=== PATIENT | male | born 1960 | race Caucasian/White ===

== ENCOUNTER 2020-12-21 18:25 | Observation (INO) | payer MEDICAID, SELFPAY ==
[2020-12-21 18:36] VITALS: BP 156/97; PULSE 98; RESP 22; TEMP 37.1; O2SAT 95; BMI 32.5
--- NOTE | 2020-12-21 18:39 | XRR_ITS ---
PROCEDURE INFORMATION: Exam: XR Chest Exam date and time: 12/21/2020 6:46 PM Age: 60 years old Clinical indication: Chest pain; Prior surgery; Surgery type: 4 stents; Additional info: Cp TECHNIQUE: Imaging protocol: XR of the chest. Views: 1 view. COMPARISON: No relevant prior studies available. FINDINGS: Lungs: Unremarkable. No consolidation. Pleural spaces: Unremarkable. No pleural effusion. No pneumothorax. Heart/Mediastinum: Unremarkable. No cardiomegaly. Bones/joints: Unremarkable. XR/XR chest 1V portable [id number] IMPRESSION: No acute findings.
--- NOTE | 2020-12-21 18:39 | ECG_ITS ---
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 Measurements Intervals [place] Rate: 88 P: 32 SD: 161 QRS: -34 QRSD: 126 T: -20 QT: 355 QTc: 432 Interpretive Statements SINUS RHYTHM INFERIOR MYOCARDIAL INFARCTION , OF INDETERMINATE AGE [40+ ms Q WAVE AND/OR ST/T ABNORMALITY IN II/aVF] No previous ECG available for comparison Electronically Signed On 12-24-2020 12:16:25 CDT by Mariajose Beltre M.D. [email or web address] Groupcoshocton regional medical center.[email or web address]/store/NU/[id number] f
--- NOTE | 2020-12-21 18:42 | ED_ITS ---
HPI - Chest Pain General: Chief Complaint: Chest Pain Stated Complaint: CP Time Seen by Provider: 12/21/20 18:36 History of Present Illness: HPI narrative: Patient is a 60-year-old male with past medical history coronary artery disease with FL in 2007 with 4 stents at that time who comes to the ER today complaining of midsternal chest pain similar to his previous FL. Also shortness of breath. He says pain is 9 out of 10 on arrival. EKG does show ST depressions in 1-lead but no significant ST elevation. After resting in bed his pain spontaneously went to a 3 out of 10. He took multiple nitroglycerin at home today with no improvement of his chest pain. He says usually at home it does improve his chest pain but today it has not. MD complaint: chest pain Pertinent past history: coronary artery disease and prior FL Timing of current episode: constant Prior episodes: Yes Onset: during rest and during exertion Pain location: substernal and left chest Pain radiation: left arm Severity: similar to previous episodes Quality: heaviness Relieving factors: nothing and rest Exacerbating factors: exertion Associated symptoms: Reports dyspnea; Deny abdominal pain or palpitations Treatment prior to arrival: none Review of Systems General: Reports: 10 or more systems reviewed and unremarkable except in HPI and below Const: Denies: fatigue Eyes: Denies: change in vision, blurry vision or eye redness ENMT: Denies: throat pain, swelling of lips/tongue, ear or mastoid pain or nasal congestion Card: Reports: chest pain; Denies: palpitations, irregular heart rhythm, edema, dyspnea on exertion or orthopnea Resp: Reports: dyspnea; Denies: productive cough or non-productive cough GI: Denies: abdominal pain, diarrhea or GI cramping : Denies: flank pain, urinary frequency or urinary urgency Musc: Denies: neck pain, back pain, extremity pain, joint pain, joint redness, limited range of motion or muscle weakness Skin/Breast: Denies: rash, pruritus, erythema, skin pain or skin tenderness Neuro: Denies: headache(s), numbness in extremities, weakness in extremities, sensory changes, difficulty walking, dizziness, confusion or Slurred speech p resent Psych: Denies: anxiety or depression Endo: Denies: polyuria All/Imm: Denies: urticaria, throat swelling or tongue swelling PFSH ED PFSH: Medical History Atherosclerosis of [place] coronary artery of [place] heart with stable angina pectoris BPH (benign prostatic hyperplasia) Essential hypertension History of hypertension Hx of chest pain Surgical History History of PTCA Family History Brother CAD (coronary artery disease) Lung disease Father CAD (coronary artery disease) Cancer Mother Diabetes Lung disease Denies family history of Clotting disorder Dementia Chronic kidney disease (CKD) Suicide Anesthesia complication Bleeding disorder Stroke Social History (Updated 12/21/20 @ 22:15 by Chantel Castorena MD) Smoking and tobacco status: former smoker Alcohol intake: current Alcohol intake frequency: 3 or more drinks per day [place] type: beer Alcohol use comment: 12-15 beers per night, 12 ounces can Substance/Drug Use: never Housing: House Physical Exam Const: COMMON NORMALS: no acute distress, average body habitus, patient oriented x3, no limitations, healthy appearing, alert and well nourished GENERAL APPEARANCE: cooperative, comfortable, well kempt and well developed ORIENTATION/CONSCIOUSNESS: Yes awake, Yes oriented to person, Yes oriented to place and Yes oriented to time HENMT: COMMON NORMALS: normocephalic, external ears normal and Normal external nose present HEAD & SCALP: normal to inspection and normocephalic NOSE: Normal external nose present EXTERNAL EAR: Yes external ears normal MOUTH: Normal oral and palatal mucosa present THROAT: posterior oropharynx normal Eye: COMMON NORMALS: Equal, round and reactive pupils present and EOMs intact bilaterally GENERAL EYE: appearance normal, both eyes and all related structures PUPIL: Yes Equal, round and reactive pupils present Neck/C-Spine: COMMON NORMALS: full ROM, no lymphadenopathy, no meningeal signs and no JVD GENERAL: Yes normal visual inspection Lymph: LYMPHATIC: no lymphadenopathy noted Chest: COMMONS NORMALS: normal inspection of the chest and normal palpation of entire chest wall Resp: COMMON NORMALS: normal respiratory effort, No retractions, No use of accessory muscles, clear to auscultation bilaterally and percussion normal EFFORT & INSPECTION: Yes able to speak in complete sentences AUSCULTATION: clear to auscultation bilaterally PERCUSSION: percussion normal Cardio: COMMON NORMALS: no JVD, regular rate, regular rhythm, S1 normal heart sound present, S2 normal heart sound present and Peripheral pulses 2+ throughout RATE: regular rate RHYTHM: regular rhythm HEART SOUNDS: S1 normal heart sound present and S2 normal heart sound present PERIPHERAL PULSES: Peripheral pulses 2+ throughout GI: COMMON NORMALS: Normal to inspection, nondistended, normoactive bowel sounds present, Soft to palpation, non-tender and no masses INSPECTION: Yes normal to inspection PALPATION: Yes Soft to palpation : COMMON NORMALS: Yes no CVA tenderness BLADDER/KIDNEY EXAM: Yes no CVA tenderness Back/Pelvis: COMMON NORMALS: no CVA tenderness, thoracic and lumbar spine normal to inspection, no thoracic nor lumbar tenderness and thoraco-lumbar ROM normal Extremity: COMMON NORMALS: normal to inspection, full ROM, capillary refill normal, no joint enlargement and no pedal edema GENERAL: Yes normal exam except as noted Neuro: COMMON NORMALS: patient oriented x3, CN's II-XII intact bilaterally, moves all extremities, no focal motor deficits, no sensory deficits noted and gait normal SENSORIUM/ORIENTATION: Yes alert, Yes oriented to person, Yes oriented to place and Yes oriented to time MENINGEAL SIGNS: Yes no meningeal signs Psych: COMMON NORMALS: mental status grossly normal, Normal thought process present, cooperative, normal affect and speech normal APPEARANCE: Yes well kempt ATTITUDE: Yes calm SPEECH: Yes normal speech THOUGHT PROCESS: Normal thought process present Skin: COMMON NORMALS: no rashes or lesions noted GENERAL SKIN EXAM: no rashes or lesions noted Course 2 Vital Signs: Vital signs: Vital Signs Temperature 98.7 F 12/21/20 18:36 Pulse Rate 67 12/21/20 21:31 Respiratory Rate 17 12/21/20 21:31 Blood Pressure 112/73 12/21/20 21:31 Pulse Oximetry 97 12/21/20 21:31 MDM - Chest Pain MDM Narrative: Medical decision making narrative: The patient came in complaining of midsternal and left-sided chest pain similar to his previous FL in 2007. Initial EKG showed ST depression in 1-lead and after the leads were adjusted it was not there on the next EKG done shortly after. 2-hour EKG was also normal. Initial and 2-hour troponins were both normal. He was seen by Dr. Dc October 30 who recommended a stress test however he was told his insurance would not cover it. Discussed with Dr. Ray who recommended keeping him observation for a stress test in the morning due to his high risk history. Discussed with Dr. Castorena who accepts for observation Lab Data: Labs: Lab Results 12/21/20 12/21/20 12/21/20 Range/Units 18:41 18:41 18:41 WBC 13.4 H (4.0-10.0) 10^3/ uL RBC 4.40 (4.1-5.3) 10^6/u L Hgb 15.3 (11.7-16.6) g/dL Hct 44.5 (42.0-52.0) % MCV 101.1 H (80-94) fL MCH 34.8 H (28.0-34.0) pg MCHC 34.4 (30.0-36.0) g/dL RDW 12.1 (12.1-15.1) % Plt Count 371 (130-400) 10^3/c mm MPV 9.1 (7.4-10.4) fL Neut % (Auto) 76.7 % Lymph % (Auto) 11.8 % [place] % (Auto) 8.0 % Eos % (Auto) 2.7 % Baso % (Auto) 0.6 % Neut # (Auto) 10.24 H (1.8-7.7) 10^3/u L Lymph # (Auto) 1.6 (0.8-4.8) 10^3/u L [place] # (Auto) 1.1 H (0.2-0.9) 10^3/u L Eos # (Auto) 0.4 (0.0-0.8) 10^3/u L Baso # (Auto) 0.1 (0.0-0.1) 10^3/u L Nucleated RBC % (a uto) 0 % Nucleated RBCs # 0.0 /100WBC D-Dimer 0.42 (0-0.59) ug/mIFE U Sodium 136 (136-145) mmol/L Potassium 4.9 (3.5-5.1) mmol/L Chloride 99 (98-107) mmol/L Carbon Dioxide 23 (22-29) mmol/L Anion Gap 18.9 (5-19) BUN 11 (8-23) mg/dL Creatinine 1.0 (0.7-1.2) mg/dL GFR Calculation 76.0 L (90-130) mL/min Glucose 101 (65-115) mg/dL Calculated Osmolal ity 282 L (285-295) mOsm/k g Calcium 9.8 (8.5-10.5) mg/dL Total Bilirubin 0.6 (0.15-1.2) mg/dL AST 19 (0-40) U/L ALT 20 (0-41) U/L Alkaline Phosphata se 86 (40-130) IU/L Troponin T Baselin e (0-15) ng/L Troponin T 120 Min [place] (0-15) ng/L Delta Troponin T (0-10) ABS# NT-Pro-B Natriuret Pep 177 H (0-125) pg/mL Total Protein 7.7 (6.6-8.7) g/dL Albumin 4.8 (3.5-5.2) g/dL Globulin 2.9 (1.3-4.6) g/dL Urine Color (Yellow) Urine Appearance (CLEAR) Urine pH (5-7) Ur Specific Gravit y (1.005-1.030) Urine Protein (Negative) Urine Glucose (UA) (Normal) Urine Ketones (Negative) Urine Blood (Negative) Urine Nitrate (Negative) Urine Bilirubin (Negative) Urine Urobilinogen (Negative) mg/dL Ur Leukocyte Amanda ase (Negative) 12/21/20 12/21/20 12/21/20 Range/Units 18:41 19:17 20:11 WBC (4.0-10.0) 10^3/ uL RBC (4.1-5.3) 10^6/u L Hgb (11.7-16.6) g/dL Hct (42.0-52.0) % MCV (80-94) fL MCH (28.0-34.0) pg MCHC (30.0-36.0) g/dL RDW (12.1-15.1) % Plt Count (130-400) 10^3/c mm MPV (7.4-10.4) fL Neut % (Auto) % Lymph % (Auto) % [place] % (Auto) % Eos % (Auto) % Baso % (Auto) % Neut # (Auto) (1.8-7.7) 10^3/u L Lymph # (Auto) (0.8-4.8) 10^3/u L [place] # (Auto) (0.2-0.9) 10^3/u L Eos # (Auto) (0.0-0.8) 10^3/u L Baso # (Auto) (0.0-0.1) 10^3/u L Nucleated RBC % (a uto) % Nucleated RBCs # /100WBC D-Dimer (0-0.59) ug/mIFE U Sodium (136-145) mmol/L Potassium (3.5-5.1) mmol/L Chloride (98-107) mmol/L Carbon Dioxide (22-29) mmol/L Anion Gap (5-19) BUN (8-23) mg/dL Creatinine (0.7-1.2) mg/dL GFR Calculation (90-130) mL/min Glucose (65-115) mg/dL Calculated Osmolal ity (285-295) mOsm/k g Calcium (8.5-10.5) mg/dL Total Bilirubin (0.15-1.2) mg/dL AST (0-40) U/L ALT (0-41) U/L Alkaline Phosphata se (40-130) IU/L Troponin T Baselin e 9 (0-15) ng/L Troponin T 120 Min [place] 9.28 (0-15) ng/L Delta Troponin T 0.28 (0-10) ABS# NT-Pro-B Natriuret Pep (0-125) pg/mL Total Protein (6.6-8.7) g/dL Albumin (3.5-5.2) g/dL Globulin (1.3-4.6) g/dL Urine Color Yellow (Yellow) Urine Appearance Clear (CLEAR) Urine pH 5 (5-7) Ur Specific Gravit y 1.020 (1.005-1.030) Urine Protein Neg (Negative) Urine Glucose (UA) Norm (Normal) Urine Ketones Negative (Negative) Urine Blood Neg (Negative) Urine Nitrate Negative (Negative) Urine Bilirubin Neg (Negative) Urine Urobilinogen Norm (Negative) mg/dL Ur Leukocyte Amanda ase Negative (Negative) Discharge Plan Discharge Patient Disposition: Placed in Observation Clinical Impression: Chest pain Coding Level of Care Code ED 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
[2020-12-21] MEDS: aspirin 81 mg Chew Tablet 324 MG PO (18:44)
[2020-12-21] MEDS: nitroglycerin 0.4 mg sublingual Tablet SUBLINGUAL (18:47)
[2020-12-21 18:57] LABS: Basophils # 0.1 10^3/uL (0.0-0.1); Basophils % 0.6 %; Eosinophils # 0.4 10^3/uL (0.0-0.8); Eosinophils % 2.7 %; Hematocrit 44.5 % (42.0-52.0); Hemoglobin 15.3 g/dL (11.7-16.6); Lymphocytes # 1.6 10^3/uL (0.8-4.8); Lymphocytes % 11.8 %; Mean Corpuscular HGB Conc 34.4 g/dL (30.0-36.0); Mean Corpuscular Hemoglobin 34.8 pg (28.0-34.0); Mean Corpuscular Volume 101.1 fL (80-94); Mean Platelet Volume 9.1 fL (7.4-10.4); Monocytes # 1.1 10^3/uL (0.2-0.9); Neutrophils # 10.24 10^3/uL (1.8-7.7); Neutrophils % 76.7 %; Nucleated Red Blood Cells % 0 %; Platelet Count 371 10^3/cmm (130-400); Red Cell Distribution Width 12.1 % (12.1-15.1); White Blood Count 13.4 10^3/uL (4.0-10.0)
[2020-12-21 19:07] LABS: D Dimer 0.42 ug/mIFEU (0-0.59)
[2020-12-21 19:11] VITALS: BP 88/67; PULSE 81; RESP 16; O2SAT 95
[2020-12-21 19:19] LABS: Troponin(5th) Baseline 9 ng/L (0-15)
[2020-12-21 19:26] LABS: Alanine Aminotransferase 20 U/L (0-41); Albumin Level 4.8 g/dL (3.5-5.2); Alkaline Phosphatase 86 IU/L (40-130); Anion Gap 18.9 (5-19); Aspartate Amino Transferase 19 U/L (0-40); Blood Urea Nitrogen 11 mg/dL (8-23); Calcium 9.8 mg/dL (8.5-10.5); Carbon Dioxide 23 mmol/L (22-29); Chloride 99 mmol/L (98-107); Globulin 2.9 g/dL (1.3-4.6); Glucose 101 mg/dL (65-115); NT Pro B Type Natriuretic Pept 177 pg/mL (0-125); Osmolality Calculated 282 mOsm/kg (285-295); Potassium 4.9 mmol/L (3.5-5.1); Sodium 136 mmol/L (136-145); Total Bilirubin 0.6 mg/dL (0.15-1.2); Total Protein 7.7 g/dL (6.6-8.7)
[2020-12-21 19:28] LABS: Add Urine Microscopic? NO; Charge for UA Resulting for Rev
[2020-12-21 19:34] LABS: Bilirubin Urine Neg (Negative); Blood Urine Neg (Negative); Glucose Urine UA Norm (Normal); Ketones Urine Negative (Negative); Leukocyte Esterase Urine Negative (Negative); Nitrate Urine Negative (Negative); Protein Urine Neg (Negative); Urine Appearance Clear (CLEAR); Urine Color Yellow (Yellow); Urobilinogen Urine Norm (Negative); pH Urine 5 (5-7)
[2020-12-21 20:36] LABS: Troponin 5 2HR 9.28 ng/L (0-15); Troponin 5 2HR Delta 0.28 ABS# (0-10)
--- NOTE | 2020-12-21 20:39 | ECG_ITS ---
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 Measurements Intervals [place] Rate: 72 P: 17 ID: [id number] QRS: -36 QRSD: 124 T: -3 QT: 378 QTc: 414 Interpretive Statements SINUS RHYTHM LEFT AXIS DEVIATION [QRS AXIS < -30] MODERATE INTRAVENTRICULAR CONDUCTION DELAY [110+ ms QRS DURATION] No previous ECG available for comparison Electronically Signed On 12-24-2020 12:26:00 CDT by Mariajose Beltre M.D. [email or web address]/[id number]
[2020-12-21 21:31] VITALS: BP 112/73; PULSE 67; RESP 17; O2SAT 97
[2020-12-21 22:00] VITALS: PULSE 68
--- NOTE | 2020-12-21 22:12 | P.HP_ITS ---
Providers/Chief Complaint Primary Care Provider: Taina Zarate DO Chief Complaint: CP History of Present Illness Christopher Reinoso is a 60 year old male was established history of coronary artery disease PCI 2004, previous stress test 2016,, status post 4 stents, in September he was recommended cardiac stress test however because of insurance issues was not able to get one done presented today with chief complaint of chest pain. Mehdi waggoner is stating that he was gardening today for about 4 hours, he felt sick to his stomach and experienced 1 episode of nausea and vomiting, then he resumed his guarding again he did not experience any chest pain until he went to bed. He had to take 3 nitroglycerin 5 minutes apart for his substernal pressure-like chest discomfort which was radiating to his left shoulder. He is describing his chest discomfort as something comparable to acid reflux. No shortness of breath or recurrence of vomiting or diaphoresis. He called EMS. On arrival he chest pain intensity had reduced however he was given another nitroglycerin which totally resolved his chest discomfort, he was hemodynamically stable, first EKG showed ST depression in lead V2 single lead however second and third EKG did not show such changes, he is chest pain-free hemodynamically stable, Dr. Bender was notified who recommended stress test in the morning. At the time my evaluation no active chest pain. Of note, he endorses to drinking 12-15 beers of 12 ounces every night, never had any withdrawal signs or symptoms., Does not smoke. Consider himself fairly active for his age. Review of Systems Const: Denies: fever(s) Eyes: Denies: change in vision ENMT: Denies: throat pain Card: Reports: chest pain; Denies: dyspnea on exertion or orthopnea Resp: Denies: dyspnea GI: Reports: nausea and vomiting; Denies: abdominal pain : Denies: flank pain Musc: Denies: neck pain Skin/Breast: Denies: rash Neuro: Denies: headache(s) Psych: Denies: anxiety Endo: Denies: polyuria Amrit/Lymph: Denies: easy bruising All/Imm: Denies: urticaria Medications/Allergies Home Medications Medication Instructions Recorded Confirmed Last Taken Type atorvastatin 20 mg tablet 20 mg PO DAILY 10/30/20 12/21/20 12/21/20 History lisinopril 10 mg tablet 10 mg PO DAILY 30 Days #30 tab 03/15/21 05/06/21 05/06 /21 Rx metoprolol succinate 50 mg 50 mg PO DAILY 10/30/20 12/21/20 12/21/20 History tablet,extended release 24 hr nitroglycerin 0.4 mg sublingual 0.4 mg SUBLINGUAL Q5M PRN 10/30/20 12/21/20 12/21/20 History tablet Allergies Allergy/AdvReac Type Severity Reaction Status Date / Time No Known Allergies Allergy Verified 10/30/20 09:17 PFSH Acute PFSH: Medical History Atherosclerosis of [place] coronary artery of [place] heart with stable angina pectoris BPH (benign prostatic hyperplasia) Essential hypertension History of hypertension Hx of chest pain Surgical History History of PTCA Family History Brother CAD (coronary artery disease) Lung disease Father CAD (coronary artery disease) Cancer Mother Diabetes Lung disease Denies family history of Clotting disorder Dementia Chronic kidney disease (CKD) Suicide Anesthesia complication Bleeding disorder Stroke Social History (Updated 12/21/20 @ 22:15 by Chantel Castorena MD) Smoking and tobacco status: former smoker Alcohol intake: current Alcohol intake frequency: 3 or more drinks per day Alcohol type: beer Alcohol use comment: 12-15 beers per night, 12 ounces can Substance/Drug Use: never Housing: House Vitals/I&O/Wt Last Vital Signs Temp 98.7 F 12/21/20 18:36 Pulse 67 12/21/20 21:31 Resp 17 12/21/20 21:31 BP 112/73 12/21/20 21:31 Pulse Ox 97 12/21/20 21:31 Weight last 48 hrs Weight 99.79 kg Physical Exam Narrative: EXAM NARRATIVE: Very pleasant middle-aged male No active chest pain shortness of breath abdominal pain Saturating well on room air Hemodynamically stable S1, S2 no murmur appreciated Abdomen soft nontender Bilateral breath sounds no audible stridor or wheezing No neurological deficits EOMI, PERRLA GCS 15 Awake alert oriented x3 No joint swelling Pleasant mood, appropriate affect Data : 12/21/20 18:41 12/21/20 18:41 A&P Assessment and plan (1) Unstable angina: Unstable angina Currently chest pain-free EKG showing sinus rhythm without significant ischemic or infarctive changes, his first EKG showed ST depression only in lead V2, do not suspect posterior wall HI considering single lead change, will closely monitor on cardiac floor with telemetry Currently chest pain-free with normal hemodynamics Would not start ACS protocol at this time N.p.o. after midnight Hold AV steve blocking agent for exercise stress test, is fairly active able to do treadmill stress test, EKG sinus rhythm no contraindication for treadmill stress test Follow-up with echo D-dimer to rule out PE Status: Acute Additional A&P Information Alcohol abuse: Drinks 12-15 beers per night which are 12 ounces each, never had any symptoms of withdrawal we will keep him on thiamine and folic acid for now, patient is stating that he can quit anytime he does not think it is a problem for him BPH: Add tamsulosin Hypertension: Currently normotensive continue lisinopril N.p.o. after midnight DVT prophylaxis Lovenox Full code Attestations Medical Necessity Statement*: Anticipating discharge in less than 48 hours will need Cardiolite stress test for unstable angina Time Spent in Patient Care: (>than 50% of time spent in counselling and/or direct pt care on unit) . 40mins Coding Level of Care Code Acute Industrial Organizational Psychologist for Kris Ellis Diagnoses Unstable angina I20.0
[2020-12-21 23:01] VITALS: BP 142/86; PULSE 82; RESP 16; O2SAT 94
[2020-12-21 23:24] VITALS: BP 125/75; PULSE 66; RESP 16; TEMP 36.7; O2SAT 96
--- NOTE | 2020-12-21 23:39 | PC.NURSE ---
Patient arrived from the ED after report was received via phone. Patient is alert and oriented and ambulatory. Patient does not complain of any pain at this time. He states his chest pain started around 2 pm today. He states that nitro usually helps, but it didn't today. Patient has been oriented to his room and has call light within reach. Will monitor. VSS.
[2020-12-21] MEDS: enoxaparin 40 mg/0.4 mL Syringe SUBCUT (23:45)
[2020-12-22] VITALS (8 sets, daily range): BP systolic 108–125; BP diastolic 47–71; PULSE 50–86; RESP 16–20; TEMP 36.6–36.8; O2SAT 93–98
--- NOTE | 2020-12-22 00:39 | ECG_ITS ---
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 Measurements Intervals [place] Rate: 61 P: 31 NV: 162 QRS: -28 QRSD: 126 T: -22 QT: 430 QTc: 434 Interpretive Statements SINUS RHYTHM WITH OCCASIONAL VENTRICULAR PREMATURE COMPLEXES INFERIOR MYOCARDIAL INFARCTION [40+ ms Q WAVE AND/OR ST/T ABNORMALITY IN II/aVF], OF INDETERMINATE AGE Compared to ECG 12/21/2020 20:56:40 Ventricular premature complex(es) now present Myocardial infarct finding now present Left-axis deviation no longer present Intraventricular conduction delay no longer present Electronically Signed On 12-24-2020 12:25:25 CDT by Mariajose Beltre M.D. [email or web address] Industriespascagoula hospitalTeklatechuniversity [email or web address]/store/[id number]
[2020-12-22 01:14] LABS: Basophils # 0.1 10^3/uL (0.0-0.1); Basophils % 0.7 %; Eosinophils # 0.3 10^3/uL (0.0-0.8); Eosinophils % 3.4 %; Hematocrit 39.6 % (42.0-52.0); Hemoglobin 13.6 g/dL (11.7-16.6); Lymphocytes # 2.1 10^3/uL (0.8-4.8); Lymphocytes % 24.1 %; Mean Corpuscular HGB Conc 34.3 g/dL (30.0-36.0); Mean Corpuscular Hemoglobin 34.3 pg (28.0-34.0); Mean Platelet Volume 9.1 fL (7.4-10.4); Monocytes # 0.9 10^3/uL (0.2-0.9); Monocytes % 9.9 %; Neutrophils # 5.49 10^3/uL (1.8-7.7); Neutrophils % 61.8 %; Nucleated Red Blood Cells % 0 %; Platelet Count 293 10^3/cmm (130-400); Red Blood Count 3.96 10^6/uL (4.1-5.3); Red Cell Distribution Width 12.3 % (12.1-15.1); White Blood Count 8.9 10^3/uL (4.0-10.0)
--- NOTE | 2020-12-22 05:00 | USCV_ITS ---
Arleth Christopher Age: 60 Gender: M : 1960 Exam Date: 12/22/2020 07:16 Ordering Phys: Chantel Castorena MD Technologist: [place] [facility] [place]: Chest Pain BP: 115 / 47 HR: 89 Rhythm: Sinus Technical Quality: Adequate MEASUREMENTS (Male / Female) Normal Values 2D ECHO LV Diastolic Diameter PLAX 2.9 cm 4.2 - 5.9 / 3.9 - 5.3 cm LV Systolic Diameter PLAX 2.5 cm IVS Diastolic Thickness 1.1 cm 0.6 - 1.0 / 0.6 - 0.9 cm IVS Systolic Thickness 1.3 cm LVPW Diastolic Thickness 1.0 cm 0.6 - 1.0 / 0.6 - 0.9 cm LVPW Systolic Thickness 1.2 cm LVOT Diameter 2.1 cm LV Ejection Fraction 2D Teich 33.6 % LV Ejection Fraction MOD 2C 38.7 % LV Ejection Fraction 2C AL 40.0 % LA Diameter 4.2 cm LA Width 5.0 cm LA Height 5.2 cm RA Width 4.4 cm RA Height 5.3 cm Aorta at Sinotubular Diameter 3.1 cm M-MODE LV Diastolic Diameter MM 5.6 cm 4.2 - 5.9 / 3.9 - 5.3 cm LV Systolic Diameter MM 4.1 cm LV Ejection Fraction MM Teich 52.7 % IVS Diastolic Thickness MM 1.4 cm 0.6 - 1.0 / 0.6 - 0.9 cm IVS Systolic Thickness MM 1.5 cm LVPW Diastolic Thickness MM 1.3 cm 0.6 - 1.0 / 0.6 - 0.9 cm LVPW Systolic Thickness MM 1.9 cm RV Diastolic Diameter MM 1.9 cm Aortic Annulus Diameter 4.5 cm LA Ao Ratio MM 1.0 MV E Point Septal Separation 2.0 cm DOPPLER AV Peak Velocity 136.0 cm/s LVOT Peak Velocity 75.0 cm/s AV Area Cont Eq vti 2.2 cm squared AV Area Cont Eq pk 1.9 cm squared MV Area PHT 5.0 cm squared Mitral E to A Ratio 0.9 MV E' Velocity 36.0 cm/s Mitral E to MV E' Ratio 6.4 Mitral E to LV E' Lateral Ratio 5.1 Mitral E to LV E' Septal Ratio 8.8 TR Peak Velocity 173.0 cm/s TR Peak Gradient 12.0 mmHg Right Atrial Pressure 3.0 mmHg Pulmonary Artery Systolic Pressu 15.0 mmHg PV Peak Velocity 53.0 cm/s FINDINGS Left Ventricle Normal left ventricular cavity size. Moderately decreased left ventricular systolic function. Left ventricular ejection fraction is estimated at 35 %. Probably global left ventricular hypokinesis. However, this study is inadequate for estimation of regional wall motion abnormality. Normal diastolic function. Right Ventricle Normal right ventricular size and systolic function. Right ventricular systolic pressure 15 mmHg. Right Atrium Normal right atrial size. Left Atrium Normal left atrial size. Mitral Valve Thickened mitral valve. No mitral valve stenosis. Trace mitral valve regurgitation. . Aortic Valve Aortic valve not well visualized. No aortic valve stenosis. No aortic valve regurgitation. Tricuspid Valve Tricuspid valve not well visualized. Pulmonic Valve Pulmonic valve not well visalized. Pericardium No pericardial effusion. Aorta Normal size aortic root and proximal ascending aorta. CONCLUSIONS 1. Normal left ventricular cavity size. Moderately decreased left ventricular systolic function. Left ventricular ejection fraction is estimated at 35 %. Probably global left ventricular hypokinesis. However, this study is inadequate for estimation of regional wall motion abnormality. Normal diastolic function. 2. Normal right ventricular size and systolic function. 3. No significant valvular abnormality. 4. No prior similar studies to compare. Mariajose Beltre MD (Electronically Signed) Final Date: 23 Dec 2020 08:58 S
--- NOTE | 2020-12-22 05:18 | PC.NURSE ---
Dr. Castorena notified of patient having Exercise MIBI ordered. Patient has taken beta blockers a home within the last 24 hours. Ordered to change to [place].
--- NOTE | 2020-12-22 06:00 | ECG_ITS ---
[facility] Test Date: 2020-12-22 Pat Name: Christopher Reinoso Department: Room: 112 Gender: Male Seam Closer: Sylvia Guardado : 1960 Requested By: Monica Castorena Order Number: [id number] Gisella MD: MONICA FARR Interpretive Statements NOTE: Please note that this is the electrocardiogram portion of the Lexiscan/Sestamibi stress test. The perfusion scan will be documented separately. DATA: Baseline heart rate was 82 beats per minute. Baseline blood pressure was 144/74 millimeters of mercury. Target heart rate was 159. Maximum heart rate achieved was 90. which was 56 % of the predicted target heart rate. Maximum blood pressure was 144/95 millimeters of mercury. The reason for ending the test was completion of the protocol. The patient did not experience any symptoms. ELECTROCARDIOGRAM: BASELINE: Sinus rhythm. Normal axis. Interventricular conduction delay, otherwise, no ST-T changes suggestive of ischemia noted. No arrhythmia noted. EXERCISE: After Lexiscan injection, no ST-T changes suggestive of ischemic noted. No arrhythmia noted. CONCLUSION: Please note due to baseline abnormality of the EKG specificity and sensitivity of the EKG portion of LexiScan MIBI stress test will be low 1. EKG not suggestive of ischemia 2. Lexiscan injection unremarkable. 3. Perfusion scan will be documented separately. Electronically Signed On 01-02-2021 19:00:45 CDT by MONICA FARR [id number]
--- NOTE | 2020-12-22 06:52 | PM.CONSULT ---
Providers/Reason For Consult Consulting Physican/Specialty*: Cardiology Reason for Consult*: Stress test. Attending Physician: Chantel Castorena MD Primary Care Provider: Taina Zarate DO History of Present Illness History of Present Illness 60-year-old male past medical history significant for hypertension hyperlipidemia coronary artery disease status post PCI in 2004, stress in 2017 with the recent PCI with multiple stents has been admitted with worsening of chest pain. Patient had been offered stress test as an outpatient but due to insurance reason he did not completed. He ended up in the ER with episode of chest pain and questionable EKG changes with V2 abnormality which resolved later. He underwent stress test this morning turned out to be without ischemia with old myocardial infarction. Currently patient denies any chest pain. His medicine will be optimized. He is advised to follow-up with cardiology as he will be discharged home due to no significant ischemia on the stress test. Review of Systems General: Reports: 10 or more systems reviewed and unremarkable except in HPI and below Const: Denies: fever(s) or fatigue Eyes: Denies: change in vision, blurry vision or eye redness ENMT: Denies: throat pain, swelling of lips/tongue, ear or mastoid pain or nasal congestion Card: Reports: chest pain; Denies: palpitations, irregular heart rhythm, edema, dyspnea on exertion or orthopnea Resp: Denies: dyspnea, productive cough or non-productive cough GI: Reports: nausea and vomiting; Denies: abdominal pain, diarrhea or GI cramping : Denies: flank pain, urinary frequency or urinary urgency Musc: Denies: neck pain, back pain, extremity pain, joint pain, joint redness, limited range of motion or muscle weakness Skin/Breast: Denies: rash, pruritus, erythema, skin pain or skin tenderness Neuro: Denies: headache(s), numbness in extremities, weakness in extremities, sensory changes, difficulty walking, dizziness, confusion or Slurred speech present Psych: Denies: anxiety or depression Endo: Denies: polyuria Amrit/Lymph: Denies: easy bruising All/Imm: Denies: urticaria, throat swelling, tongue swelling or acute wheezing Meds/Allergies Home Medications and Allergies Home Medications Medication Instructions Recorded Confirmed Last Taken Type atorvastatin 20 mg tablet 20 mg PO DAILY 10/30/20 12/21/20 12/21/20 History metoprolol succinate 50 mg 50 mg PO DAILY 10/30/20 12/21/20 12/21/20 History tablet,extended release 24 hr nitroglycerin 0.4 mg sublingual 0.4 mg SUBLINGUAL Q5M PRN 10/30/20 12/21/20 12/21/20 History tablet isosorbide mononitrate 30 mg 30 mg PO DAILY 30 Days #30 tab 12/28/20 12/28/20 Unknown Rx tablet,extended release 24 hr lisinopril 20 mg tablet 20 mg PO DAILY 30 Days #30 tab 12/28/20 12/28/20 Unknown Rx Allergies Allergy/AdvReac Type Severity Reaction Status Date / Time No Known Allergies Allergy Verified 12/28/20 09:22 Current Medications Current Medications Generic Name Dose Route Start Last Admin Trade Name Freq PRN Reason Stop Dose Admin Enoxaparin Sodium 40 mg 12/21/20 23:24 12/21/20 23:45 Enoxaparin 40 Mg/0.4 Ml Syringe SUBCUT 40 mg Q24H STANLEY Administration Nitroglycerin 0.4 mg 12/21/20 18:39 12/21/20 18:47 Nitroglycerin 0.4 Mg Sublingual Tablet SUBLINGUAL 0.4 mg Q5M PRN Administration CHEST PAIN PFSH Acute PFSH: Medical History Atherosclerosis of [place] coronary artery of [place] heart with stable angina pectoris BPH (benign prostatic hyperplasia) Dyslipidemia (high LDL; low HDL) Essential hypertension History of hypertension Hx of chest pain Surgical History History of PTCA Family History Brother CAD (coronary artery disease) Lung disease Father CAD (coronary artery disease) Cancer Mother Diabetes Lung disease Denies family history of Clotting disorder Dementia Chronic kidney disease (CKD) Suicide Anesthesia complication Bleeding disorder Stroke Social History Smoking and tobacco status: former smoker Alcohol intake: current Alcohol intake frequency: 3 or more drinks per day Alcohol type: beer Housing: House Dietary Habits: Current diet type/program: regular Vitals/I&O/Wt Last Vital Signs Temp 98.1 F 12/22/20 03:27 Pulse 50 L 12/22/20 06:14 Resp 16 12/22/20 03:27 BP 115/47 12/22/20 03:27 Pulse Ox 95 12/22/20 03:27 12/21/20 12/21/20 12/22/20 14:59 22:59 06:59 Intake Total 300 / 300 Balance 300 / 300 Weight last 48 hrs Weight 220 lb Physical Exam Narrative: EXAM NARRATIVE: GENERAL: Patient is alert, awake and oriented x3. NECK: No jugular vein distension. HEENT: No cyanosis. No icterus. No pallor. HEART: Regular S1 and S2. No murmur, rub or gallop. LUNGS: Clear to auscultate bilaterally. ABDOMEN: Soft, nontender and nondistended. Positive bowel sounds. No guarding, rebound or tenderness. CENTRAL NERVOUS SYSTEM: Grossly nonfocal. EXTREMITIES: Lower extremities without edema bilaterally. Pulses palpable in the lower extremities, both dorsalis pedis and posterior tibial. A&P Assessment and plan (1) Atherosclerosis of coronary artery of [place] heart without angina pectoris: Appear to be stable from a coronary disease perspective patient underwent stress test which did not show significant ischemia. Advised optimal medical management and follow-up with cardiology Status: Acute Qualifiers: Coronary Disease-Associated Artery/Lesion type: unspecified vessel or lesion type Qualified Code(s): I25.10 - Atherosclerotic heart disease of [place] coronary artery without angina pectoris (2) Benign essential HTN: Well-controlled continue Status: Acute (3) Chest pain: Denies any complaint now. Stress test negative advised to follow-up with cardiology as an outpatient. Advised to keep come back to the ER if experience chest pain with increased frequency duration Status: Acute Qualifiers: Chest pain type: unspecified Qualified Code(s): R07.9 - Chest pain, unspecified Consult Attestations Medical Necessity Statement: Patient require continuation hospitalization for above defined care. 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
[2020-12-22] MEDS: regadenoson 0.4 Mg/5 ml Syringe IVP (08:05)
[2020-12-22] MEDS: lisinopril 10 mg Tablet PO (10:07)
[2020-12-22] MEDS: aspirin 81 mg EC Tablet PO (10:07)
[2020-12-22] MEDS: atorvastatin 40 mg Tablet 20 MG PO (10:09)
--- NOTE | 2020-12-22 12:56 | PC.CHAP ---
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 customer service advocate visit [] Patient/Family/Request visit [] Outpatient visit [] Follow-up visit [] Physician referral [] Code/Alert [xx] Routine visit [] Staff referral [] Actively dying [] Patient sleeping [] Family support [] [] Out of room [] Palliative care [] [] Receiving care in room [] Pre-surgical visit [] Trauma [] Long length of stay [] ICU visit [] Other: Relational/Emotional Strength [xx] Patient feels connected with others/family/visitors/staff [] Distress [] Loneliness/isolation [] Abandonment Spirituality of Patient [xx] Person of Dacia [xx] Attends Restorationist of their Dacia [xx] Believes in Prayer [xx] Reads Bible or Alevism materials [] There are Spiritual issues to be addressed Investment Broker Interventions [xx] Prayer [xx] Active listening [xx] Non-anxious presence [] Spiritual/emotional support [] Crisis/trauma care [] Spiritual counseling [] Bereavement support [] Provided bereavement packet [] Provided Bible/devotional materials [] Provided toy/stuffed animal, coloring book to patient or family member [] Provided Communion [] Anointing/[place] [] Salvation [xx] Completed spiritual assessment [] Other: Impact on Illness or Injury [] Angry [] Fearful [] Anxious [] Often cries [] Exhaustion [] Unable to work [] Unable to attend mosque [] Unable to walk/stand [] Unable to read [] Unable to drive [] Unable to eat/drink [] Unable to sleep [] Unable to be with family [] Patient intubated [] Other: Summary Patient expects multiple tests to be conducted and he wanted prayer for good results. Time spent with patient 5 minutes
--- NOTE | 2020-12-22 13:46 | PM.DCS ---
Discharge Providers Date of Admission: 12/21/20 23:13 Date of Discharge: December 22, 2020 Attending Provider at Admission: Chantel Castorena MD Attending Provider at Discharge: Nomi Garcia MD Primary Care Provider: Taina Thapa DO Diagnoses at Discharge Discharge Diagnosis (1) Unstable angina: Status: Acute Reason for Visit Reason for Visit: CP Hospital Course Hospital Course Christopher Reinoso is a 60 year old male was established history of coronary artery disease PCI 2004, previous stress test 2016,, status post 4 stents, in September he was recommended cardiac stress test however because of insurance issues was not able to get one done presented today with chief complaint of chest pain. Patient is stating that he was gardening today for about 4 hours, he felt sick to his stomach and experienced 1 episode of nausea and vomiting, then he resumed his guarding again he did not experience any chest pain until he went to bed. He had to take 3 nitroglycerin 5 minutes apart for his substernal pressure-like chest discomfort which was radiating to his left shoulder. He is describing his chest discomfort as something comparable to acid reflux. No shortness of breath or recurrence of vomiting or diaphoresis. He called EMS. On arrival he chest pain intensity had reduced however he was given another nitroglycerin which totally resolved his chest discomfort, he was hemodynamically stable, first EKG showed ST depression in lead V2 single lead however second and third EKG did not show such changes, he is chest pain-free hemodynamically stable, Dr. Bender was notified who recommended stress test in the morning. At the time my evaluation no active chest pain. Of note, he endorses to drinking 12-15 beers of 12 ounces every night, never had any withdrawal signs or symptoms., Does not smoke. Consider himself fairly active for his age. Sent patient to the hospital for evaluation of chest pain. During hospitalization patient did not have any further chest pain. He underwent cardiac stress test which showed large area of old myocardial infarction versus scarring without jassi-infarct ischemia noted in the basal to distal inferior lateral ridley without any active signs of ischemia. Physical Exam Narrative: EXAM NARRATIVE: Very pleasant middle-aged male No active chest pain shortness of breath abdominal pain Saturating well on room air Hemodynamically stable S1, S2 no murmur appreciated Abdomen soft nontender Bilateral breath sounds no audible stridor or wheezing No neurological deficits EOMI, PERRLA GCS 15 Awake alert oriented x3 No joint swelling Pleasant mood, appropriate affect Discharge Data Data Completed and Pending: Completed Studies During Hospitalization Category Date Time Status Sestamibi Stress Test Request Routi ne Exams 12/22/20 06:00 Draft XR chest 1V zain ble [id number] Stat Exams 12/21/20 18:39 Completed NM daniel perf SPECT r/s* [id number] Routin e Nuc Med 12/22/20 23:24 Completed Pending at discharge Category Date Time Status Sestamibi Stress Test Request Routi ne Exams 12/22/20 06:00 Ordered CV echo complete* [id number] Routine Ultrasound 12/22/20 05:00 Taken Labs from last 24 hours 12/22/20 12/22/20 12/21/20 00:39 00:39 20:11 WBC 8.9 RBC 3.96 L Hgb 13.6 Hct 39.6 L MCV 100.0 H MCH 34.3 H MCHC 34.3 RDW 12.3 Plt Count 293 MPV 9.1 Neut % (Auto) 61.8 Lymph % (Auto) 24.1 Kaufman % (Auto) 9.9 Eos % (Auto) 3.4 Baso % (Auto) 0.7 Neut # (Auto) 5.49 Lymph # (Auto) 2.1 Kaufman # (Auto) 0.9 Eos # (Auto) 0.3 Baso # (Auto) 0.1 Nucleated RBC % (a uto) 0 Nucleated RBCs # 0.0 D-Dimer Sodium Potassium Chloride Carbon Dioxide Anion Gap BUN Creatinine GFR Calculation Glucose Calculated Osmolal ity Calcium Total Bilirubin AST ALT Alkaline Phosphata se Troponin T Baselin e Troponin T 120 Min [place] 9.28 Delta Troponin T 0.28 Troponin T Hi Sens 6Hr 25.20 H Troponin T Hi Sens 6Hr Delta 16.20 H* NT-Pro-B Natriuret Pep Total Protein Albumin Globulin Urine Color Urine Appearance Urine pH Ur Specific Gravit y Urine Protein Urine Glucose (UA) Urine Ketones Urine Blood Urine Nitrate Urine Bilirubin Urine Urobilinogen Ur Leukocyte Amanda ase 12/21/20 12/21/20 12/21/20 19:17 18:41 18:41 WBC RBC Hgb Hct MCV MCH MCHC RDW Plt Count MPV Neut % (Auto) Lymph % (Auto) Kaufman % (Auto) Eos % (Auto) Baso % (Auto) Neut # (Auto) Lymph # (Auto) Kaufman # (Auto) Eos # (Auto) Baso # (Auto) Nucleated RBC % (a uto) Nucleated RBCs # D-Dimer Sodium 136 Potassium 4.9 Chloride 99 Carbon Dioxide 23 Anion Gap 18.9 BUN 11 Creatinine 1.0 GFR Calculation 76.0 L Glucose 101 Calculated Osmolal ity 282 L Calcium 9.8 Total Bilirubin 0.6 AST 19 ALT 20 Alkaline Phosphata se 86 Troponin T Baselin e 9 Troponin T 120 Min [place] Delta Troponin T Troponin T Hi Sens 6Hr Troponin T Hi Sens 6Hr Delta NT-Pro-B Natriuret Pep 177 H Total Protein 7.7 Albumin 4.8 Globulin 2.9 Urine Color Yellow Urine Appearance Clear Urine pH 5 Ur Specific Gravit y 1.020 Urine Protein Neg Urine Glucose (UA) Norm Urine Ketones Negative Urine Blood Neg Urine Nitrate Negative Urine Bilirubin Neg Urine Urobilinogen Norm Ur Leukocyte Amanda ase Negative 12/21/20 12/21/20 18:41 18:41 WBC 13.4 H RBC 4.40 Hgb 15.3 Hct 44.5 MCV 101.1 H MCH 34.8 H MCHC 34.4 RDW 12.1 Plt Count 371 MPV 9.1 Neut % (Auto) 76.7 Lymph % (Auto) 11.8 Kaufman % (Auto) 8.0 Eos % (Auto) 2.7 Baso % (Auto) 0.6 Neut # (Auto) 10.24 H Lymph # (Auto) 1.6 Kaufman # (Auto) 1.1 H Eos # (Auto) 0.4 Baso # (Auto) 0.1 Nucleated RBC % (a uto) 0 Nucleated RBCs # 0.0 D-Dimer 0.42 Sodium Potassium Chloride Carbon Dioxide Anion Gap BUN Creatinine GFR Calculation Glucose Calculated Osmolal ity Calcium Total Bilirubin AST ALT Alkaline Phosphata se Troponin T Baselin e Troponin T 120 Min [place] Delta Troponin T Troponin T Hi Sens 6Hr Troponin T Hi Sens 6Hr Delta NT-Pro-B Natriuret Pep Total Protein Albumin Globulin Urine Color Urine Appearance Urine pH Ur Specific Gravit y Urine Protein Urine Glucose (UA) Urine Ketones Urine Blood Urine Nitrate Urine Bilirubin Urine Urobilinogen Ur Leukocyte Amanda ase Vitals: Last Vital Signs Temp 98.2 F 12/22/20 11:18 Pulse 63 12/22/20 11:18 Resp 20 H 12/22/20 11:18 BP 125/66 12/22/20 11:18 Pulse Ox 97 12/22/20 11:18 Discharge Plan Discharge Patient Disposition: Home Condition: Stable Prescriptions: New aspirin 81 mg Tablet,Delayed Release (Dr/Ec) 81 mg PO DAILY Qty: 30 RF: 0 Continued metoprolol succinate 50 mg tablet extended release 24 hr 50 mg PO DAILY RF: 0 atorvastatin 20 mg tablet 20 mg PO DAILY RF: 0 nitroglycerin [Nitrostat] 0.4 mg tablet, sublingual 0.4 mg sublingual Q5M PRN (Reason: Chest Pain) RF: 0 lisinopril 10 mg tablet 10 mg PO DAILY 30 Days Qty: 30 RF: 5 Discharge Orders: Discharge Order (Routine); Ordered 12/22/20 Ordered By: Nomi Garcia Referrals: Taina Thapa DO [Primary Care Provider] - 7-10 days (YOU HAVE A FOLLOW UP APPOINTMENT WITH DR. THAPA ON FridayDecember AT 1115 AM. IF YOU HAVE ANY QUESTIONS OR NEED TO RESCHEDULE PLEASE CALL [phone].) Discharge Diet: Cardiac Discharge Activity: Resume usual activity Patient Instructions: Aspirin (By mouth), Chest Pain Stoplight, Opioid Safety Activity Restrictions/Additional Instructions: Follow-up with your primary care provider within the next 7 to 10 days. Discharge Attestations Time Spent in Discharge Care*: greater than 30 min Specific Discharge Activities: educating patient, discussing with pcp/other providers, discussing with telephonic case manager/social workers/dc planners, documenting/other paperwork and evaluating patient/reviewing data Quality Metrics Clinical Quality Measures During this hospital stay, did patient experience: None Coding Level of Care Code Acute Chg FW DC note Diagnoses Unstable angina I20.0
[2020-12-22 14:18] LABS: Chol HDL Ratio 2.83 mg/dL (1.0-5.00); Cholesterol 170 mg/dL (0-200); HDL Cholesterol 60 mg/dL (60-100); LDL Cholesterol Calculated 96 mg/dL (50-129); Triglycerides 71 mg/dL (0-150); VLDL Cholestrol Calculation 14 mg/dL (0-30)
--- NOTE | 2020-12-22 15:03 | DCPLANNER ---
Arranged ambulatory transport for pt. Trip ID# [id number]. His brother in law is out of town so he needed transport.
[2020-12-22 15:22] LABS: Troponin T (5th) Once 14 ng/L (0-15)
--- NOTE | 2020-12-22 16:44 | PC.NURSE ---
discharge instructions given and explained.pt verb understanding of instructions.discharged via w/c to exit at this time.uber to drive pt home.
--- NOTE | 2020-12-22 23:24 | NMCV_ITS ---
NM daniel perf SPECT r/s* [id number] Christopher Reinoso Age: 60 Gender: M : 1960 Exam Date: 12/22/2020 07:17 Ordering Phys: Chantel Castorena MD Technologist: LAMONTE Smith Exam Location: [facility] Indications: CHEST PAIN STRESS TEST [facility] IMAGE PROTOCOL Rest/Stress 1 Lexiscan Day Radiopharmaceutical Dose (mCi) Administration Site Administered by Rest: Tc-99m 10.9 IV LAMONTE Morel Sestamibi Stress:Tc-99m 32.9 IV LAMONTE Morel Sestamibi Rest: 22-Dec-2020 60 Discovery 630 Stress: 22-Dec-2020 30 Discovery 630 0.4mg Lexiscan. Images obtained in supine and prone position. SPECT RESULTS Technical Quality: Excellent Raw Data Analysis: Normal Image Corrections: No attenuation or motion correction applied Summed Stress Score: 17 Summed Rest Score: 18 Summed Difference Score: 1 PERFUSION FINDINGS Large area of fixed perfusion defect noted in basal to distal inferior and basal to distal inferolateral wall suggestive of old myocardial infarction versus scarring. FUNCTIONAL RESULTS (calculated via Gated SPECT) Stress Image LV EF (%): 50 Stress EDV (mL):158 TID: 0.87 Stress ESV (mL):79 FUNCTIONAL FINDINGS: Inferior inferolateral wall akinesis IMPRESSIONS Large area of old myocardial infarction versus scarring without jassi-infarct ischemia noted in basal to distal inferior and lateral wall. This study is negative for ischemia. This area represent old myocardial infarction and possible circumflex territory. EKG segment will be documented separately. Chantel Ray MD (Electronically Signed) Final Date: 22 Dec 2020 09:47 S
== END 2020-12-22 16:43 | disposition home or self-care (01) ==
LOC: ER 23:04 → CSU 23:13
PROVIDERS: Admitting Provider Internal Medicine; Emergency Provider Family Medicine; PCP Family Medicine; Visit Provider Student in an Organized Health Care Education/Training Program
DX: I25.110 Atherosclerotic heart disease of native coronary artery with unstable angina pectoris (principal); I10 Essential (primary) hypertension; Z95.5 Presence of coronary angioplasty implant and graft; N40.0 Benign prostatic hyperplasia without lower urinary tract symptoms; Z87.891 Personal history of nicotine dependence; R07.89 Other chest pain
CPT/HCPCS: 36415; 71045; 78452; 80053; 80061; 81003; 83880; 84484; 85025; 85378; 93005; 93017; 93306; 96372; 99285; A9500; G0378; J1650; J2785

== ENCOUNTER → 2021-03-26 11:37 | Outpatient (BNVA) | payer MEDICAID, SELFPAY | PROVIDERS: PCP Family Medicine; Visit Provider Nurse Practitioner Family | DX: Z20.822 Contact with and (suspected) exposure to COVID-19 (principal) | CPT/HCPCS: 87426; 87635 ==

== ENCOUNTER 2021-03-27 13:49 | Inpatient (IN) | payer MEDICAID, SELFPAY ==
[2021-03-27] VITALS (8 sets, daily range): BP systolic 96–143; BP diastolic 63–92; PULSE 69–93; RESP 16–24; TEMP 37.4; O2SAT 88–95
--- NOTE | 2021-03-27 14:51 | W.ED.COVID ---
HPI - COVID General: Chief Complaint: COVID symptoms Stated Complaint: low 02, N/V, covid + Time Seen by Provider: 03/27/21 14:50 Triage information: Has fever, cough or shortness of breath. Exposure to COVID + person last 14 days History of Present Illness: HPI Narrative: Mr vasquez is a 60 year old gentleman with significant past medical history of hypertension, hyperlipidemia, coronary artery disease, and ischemic cardiomyopathy with an ejection fraction of 35% who presents to the emergency department due to hypoxemia in the context of COVID 19. He reports symptom onset of 03/20 which was subacute. He endorses typical COVID symptoms including malaise, fevers, headaches, muscle aches, shortness of breath, and cough. He presented to outpatient monoclonal antibody therapy infusion center today where he was found to be hypoxemic and referred to the [facility] in. He does not typically wear oxygen at home and is currently on 4 liters. Subjectively his still feels moderate intensity symptoms which have not worsened or improved significantly appeared his symptoms are worse with exertion but do not go away with rest period no other specific provoking, exacerbating, or lifting factors identified. No other significant changes of health identified. COVID Results: SARS-CoV-2 Antigen (Rapid) Positive (Negative) H 03/26/21 23:59 03/26/21 Nasal/Oral Coronavirus 2019 PCR Detected H 03/26/21 11:37 03/26/21 Review of Systems General: Reports: 10 or more systems reviewed and unremarkable except in HPI and below Narrative: CONSTITUTIONAL: Postive for fever, fatigue, weakness EYES - denies pain, denies loss of vision EARS - denies ear issues. NOSE - denies congestion or rhinorrhea. THROAT - denies sore throat or difficulty swallowing. CARDIOVASCULAR - denies chest pain and palpitations RESPIRATORY - positive for shortness of breath and cough GASTROINTESTINAL - denies abdominal pain, no nausea vomiting, no changes in bowel habits GENITOURINARY - denies dysuria or urinary frequency MUSCULOSKELETAL- denies deformity. aches present SKIN - denies rashes or new changed skin lesions NEUROLOGIC - denies focal weakness or sensory changes HEMATOLOGIC/LYMPHATIC - denies easy bruising or lymphadenopathy. PFS ED PFSH: Medical History Atherosclerosis of [place] coronary artery of [place] heart with stable angina pectoris BPH (benign prostatic hyperplasia) Dyslipidemia (high LDL; low HDL) Essential hypertension History of hypertension Hx of chest pain Surgical History History of PTCA Family History Brother CAD (coronary artery disease) Lung disease Father CAD (coronary artery disease) Cancer Mother Diabetes Lung disease Denies family history of Clotting disorder Dementia Chronic kidney disease (CKD) Suicide Anesthesia complication Bleeding disorder Stroke Social History Smoking and tobacco status: former smoker Alcohol intake: current Alcohol intake frequency: 3 or more drinks per day Alcohol type: beer Housing: House Physical Exam Narrative: EXAM NARRATIVE: GENERAL/CONSTITUTIONAL - mildly-appearing. No acute distress. Eyes - PERRL, no conjunctival injection ENMT - Atraumatic external nose and ears. Moist mucous membranes NECK - supple. trachea midline CARDIOVASCULAR - regular rate and rhythm. Peripheral pulses 2+ and equal RESPIRATORY - Tachypnea with course breath sounds through. No retractions or accessory muscle use. ABDOMEN/GI - Nontender/Nondistended. No tenderness to percussion or evidence of peritonitis MSK - Extremities without obvious deformity or tenderness to palpation SKIN - Warm, Dry NEURO - alert and appropriately oriented. strength and sensation intact. Moves all extremities equally. PSYCH - Appropriate mood and affect Course ED course: - Monitor, IV access, and vital signs obtained. - The patient was seen and evaluated me at bedside. - Initial evaluation was notable for Increased respiratory effort with new oxygen requirement. Patient is mildly ill appearing. - Labs and imaging were ordered. - Labs notable for Leukopenia and thrombocytopenia. Metabolic panel with likely evidence of dehydration . Procalcitonin negative. Delta troponin negative. - Imaging notable for - given level of oxygen requirement in the context of comorbidities including ischemic cardiomyopathy the patient requires admission for further monitoring. - internal medicine hospitalist service was contacted and Agreed to admit the patient. at their request I ordered dexamethasone and remdesivir. - Upon serial reexamation the patient's condition remained Similar . They were admitted without incident or further clinical deterioration. Vital Signs: Vital signs: Vital Signs Temperature 98.7 F 03/28/21 19:33 Pulse Rate 55 L 03/28/21 20:35 Respiratory Rate 20 H 03/28/21 20:35 Blood Pressure 104/57 03/28/21 19:33 Pulse Oximetry 92 03/28/21 20:35 [facility] Medical Records: Attestation: I reviewed the patient's medical records. Lab Data: Attestation: I reviewed the patient's lab results. Labs: Lab Results 03/27/21 03/27/21 03/27/21 Range/Units 15:45 15:45 15:45 WBC Cancelled Corrected WBC Cancelled RBC Cancelled Hgb Cancelled Hct Cancelled MCV Cancelled MCH Cancelled MCHC Cancelled RDW Cancelled Plt Count Cancelled MPV Cancelled Gran % Cancelled Neut % (Auto) Cancelled Lymph % (Auto) Cancelled [place] % (Auto) Cancelled Eos % (Auto) Cancelled Baso % (Auto) Cancelled Neut # (Auto) Cancelled Lymph # (Auto) Cancelled [place] # (Auto) Cancelled Eos # (Auto) Cancelled Baso # (Auto) Cancelled Absolute Gran (aut o) Cancelled Nucleated RBC % (a uto) Cancelled Nucleated RBCs # Cancelled D-Dimer (0-0.59) ug/mIFE U Sodium Cancelled Potassium Cancelled Chloride Cancelled Carbon Dioxide Cancelled Anion Gap Cancelled BUN Cancelled Creatinine Cancelled GFR Calculation Cancelled Glucose Cancelled Calculated Osmolal ity Cancelled Lactic Acid 1.8 (0.5-2.2) mmol/L Calcium Cancelled Magnesium Cancelled Total Bilirubin Cancelled AST Cancelled ALT Cancelled Alkaline Phosphata se Cancelled Troponin T Baselin e C-Reactive Protein Cancelled NT-Pro-B Natriuret Pep Cancelled Total Protein Cancelled Albumin Cancelled Globulin Cancelled Procalcitonin Cancelled 03/27/21 03/27/21 03/27/21 Range/Units 15:45 16:21 16:21 WBC 3.7 L Corrected WBC RBC 4.56 Hgb 15.7 Hct 44.5 MCV 97.6 H MCH 34.4 H MCHC 35.3 RDW 11.6 L Plt Count 105 L MPV 10.2 Gran % Neut % (Auto) 80.1 Lymph % (Auto) 11.7 [place] % (Auto) 7.4 Eos % (Auto) 0.0 Baso % (Auto) 0.3 Neut # (Auto) 2.93 Lymph # (Auto) 0.4 L [place] # (Auto) 0.3 Eos # (Auto) 0.0 Baso # (Auto) 0.0 Absolute Gran (aut o) Nucleated RBC % (a uto) 0 Nucleated RBCs # 0.0 D-Dimer (0-0.59) ug/mIFE U Sodium Potassium Chloride Carbon Dioxide Anion Gap BUN Creatinine GFR Calculation Glucose Calculated Osmolal ity Lactic Acid (0.5-2.2) mmol/L Calcium Magnesium Total Bilirubin AST ALT Alkaline Phosphata se Troponin T Baselin e Cancelled 12 C-Reactive Protein NT-Pro-B Natriuret Pep Total Protein Albumin Globulin Procalcitonin 03/27/21 03/27/21 Range/Units 16:21 16:21 WBC Corrected WBC RBC Hgb Hct MCV MCH MCHC RDW Plt Count MPV Gran % Neut % (Auto) Lymph % (Auto) [place] % (Auto) Eos % (Auto) Baso % (Auto) Neut # (Auto) Lymph # (Auto) [place] # (Auto) Eos # (Auto) Baso # (Auto) Absolute Gran (aut o) Nucleated RBC % (a uto) Nucleated RBCs # D-Dimer 2.35 H (0-0.59) ug/mIFE U Sodium 129 L Potassium 4.2 Chloride 96 L Carbon Dioxide 18 L Anion Gap 19.2 H BUN 20 Creatinine 1.1 GFR Calculation 68.1 L Glucose 106 Calculated Osmolal ity 271 L Lactic Acid (0.5-2.2) mmol/L Calcium 8.1 L Magnesium 2.1 Total Bilirubin 0.2 AST 64 H ALT 29 Alkaline Phosphata se 63 Troponin T Baselin e C-Reactive Protein 69.7 H NT-Pro-B Natriuret Pep 426 H Total Protein 6.2 L Albumin 3.5 Globulin 2.7 Procalcitonin 0.21 Imaging Data: CXR: Attestation: I personally reviewed and interpreted this imaging study as follows: My impression: patchy consolidation consistent with COVID 19 Radiologist's impression: Bilateral pneumonia consistent with COVID-19 pneumonia EKG Data: EKG 1: Attestation: I personally reviewed and interpreted this EKG as follows: EKG interpretation date: 03/27/21 Prior EKG tracings: available for review Ischemic changes: non-specific ST-T wave changes Interpretation: 12 lead EKG shows a regular sinus rhythm at a rate of 78 with occasional PVC . [place] interval 145, QRS duration 124, QTC [address] segment abnormalities not meeting stemi criteria. Interpretation: sinus rhythm, ectopic beat present, nonspecific St segment abnormalities. EKG 2: Attestation: I personally reviewed and interpreted this EKG as follows: EKG interpretation date: 03/27/21 Prior EKG tracings: available for review Ischemic changes: non-specific ST-T wave changes Interpretation: 12 lead EKG shows a regular sinus rhythm at a rate of. [place] interval 145, QRS duration 123, QTC [address] segment abnormalities not meeting stemi criteria. Interpretation: sinus rhythm, nonspecific St segment abnormalities. Similar to prior. COVID Results: SARS-CoV-2 Antigen (Rapid) Positive (Negative) H 03/26/21 23:59 03/26/21 Nasal/Oral Coronavirus 2019 PCR Detected H 03/26/21 11:37 03/26/21 Discharge Plan Discharge Patient Disposition: Admitted As Inpatient Admit Provider: Nomi Garcia Clinical Impression: COVID-19, Hypoxemia Condition: Stable Coding Level of Care Code ED Shade Maker for Debbieg Rhonda
--- NOTE | 2021-03-27 15:00 | XRR_ITS ---
PROCEDURE INFORMATION: Exam: XR Chest Exam date and time: 03/27/2021 3:00 PM Age: 60 years old Clinical indication: Condition or disease; Other: Covid; Additional info: Covid, hypoxemia TECHNIQUE: Imaging protocol: XR of the chest. Views: 1 view. COMPARISON: CR XR chest 1V portable [id number] 12/21/2020 6:44 PM FINDINGS: Lungs: Bilateral opacities predominantly in the lung periphery. Pleural spaces: Unremarkable. No pleural effusion. No pneumothorax. Heart/Mediastinum: Unremarkable. No cardiomegaly. Bones/joints: No acute findings. XR/XR chest 1V portable [id number] IMPRESSION: Bilateral pneumonia consistent with COVID-19 pneumonia.
--- NOTE | 2021-03-27 15:01 | ECG_ITS ---
[facility] ED Test Date: 2021-03-27 Pat Name: Christopher Reinoso Department: Room: Gender: Male Sql Consultant: : 1960 Requested By: Fuad Peng Order Number: [id number] [id number] MD: Mariajose Beltre M.D. Measurements Intervals [place] Rate: 78 P: 11 DE: 145 QRS: -35 QRSD: 124 T: -29 QT: 364 QTc: 417 Interpretive Statements SINUS RHYTHM WITH OCCASIONAL VENTRICULAR PREMATURE COMPLEXES SEPTAL MYOCARDIAL INFARCTION [40+ ms Q WAVE IN V1/V2], PROBABLY OLD INFERIOR MYOCARDIAL INFARCTION [40+ ms Q WAVE AND/OR ST/T ABNORMALITY IN II/aVF], OF INDETERMINATE AGE Compared to ECG 12/22/2020 03:00:16 No significant changes Electronically Signed On 03-29-2021 7:43:45 CDT by Mariajose Beltre M.D. [id number]
[2021-03-27 16:13] LABS: Lactic Sepsis W/Reflex 1.8 mmol/L (0.5-2.2)
[2021-03-27 16:28] LABS: Basophils % 0.3 %; Hematocrit 44.5 % (42.0-52.0); Hemoglobin 15.7 g/dL (11.7-16.6); Lymphocytes # 0.4 10^3/uL (0.8-4.8); Lymphocytes % 11.7 %; Mean Corpuscular HGB Conc 35.3 g/dL (30.0-36.0); Mean Corpuscular Hemoglobin 34.4 pg (28.0-34.0); Mean Corpuscular Volume 97.6 fL (80-94); Mean Platelet Volume 10.2 fL (7.4-10.4); Monocytes # 0.3 10^3/uL (0.2-0.9); Monocytes % 7.4 %; Neutrophils # 2.93 10^3/uL (1.8-7.7); Neutrophils % 80.1 %; Nucleated Red Blood Cells % 0 %; Platelet Count 105 10^3/cmm (130-400); Red Blood Count 4.56 10^6/uL (4.1-5.3); Red Cell Distribution Width 11.6 % (12.1-15.1); White Blood Count 3.7 10^3/uL (4.0-10.0)
[2021-03-27 16:49] LABS: Slide Review Slide Review Perform
--- NOTE | 2021-03-27 17:01 | ECG_ITS ---
[facility] ED Test Date: 2021-03-27 Pat Name: Christopher Reinoso Department: Room: Gender: Male Continuous Improvement Consultant: : 1960 Requested By: Fuad Peng Order Number: [id number] Gisella MD: Mariajose Beltre M.D. Measurements Intervals [place] Rate: 72 P: 2 MI: 145 QRS: -27 QRSD: 123 T: -42 QT: 376 QTc: 413 Interpretive Statements SINUS RHYTHM SEPTAL MYOCARDIAL INFARCTION [40+ ms Q WAVE IN V1/V2], PROBABLY OLD INFERIOR MYOCARDIAL INFARCTION [40+ ms Q WAVE AND/OR ST/T ABNORMALITY IN II/aVF], OF INDETERMINATE AGE Compared to ECG 03/27/2021 15:37:26 Ventricular premature complex(es) no longer present Myocardial infarct finding still present Electronically Signed On 03-29-2021 10:02:58 CDT by Mariajose Beltre M.D. [id number]
[2021-03-27 17:19] LABS: NT Pro B Type Natriuretic Pept 426 pg/mL (0-125); Procalcitonin 0.21 ng/mL (0-0.5); Troponin(5th) Baseline 12 ng/L (0-15)
[2021-03-27 17:40] LABS: Alanine Aminotransferase 29 U/L (0-41); Albumin Level 3.5 g/dL (3.5-5.2); Alkaline Phosphatase 63 IU/L (40-130); Anion Gap 19.2 (5-19); Aspartate Amino Transferase 64 U/L (0-40); Blood Urea Nitrogen 20 mg/dL (8-23); C Reactive Protein 69.7 mg/L (0.0-4.9); Calcium 8.1 mg/dL (8.5-10.5); Carbon Dioxide 18 mmol/L (22-29); Chloride 96 mmol/L (98-107); Globulin 2.7 g/dL (1.3-4.6); Glomerular Filtration Rate 68.1 mL/min (90-130); Glucose 106 mg/dL (65-115); Magnesium 2.1 mg/dL (1.7-2.3); Osmolality Calculated 271 mOsm/kg (285-295); Potassium 4.2 mmol/L (3.5-5.1); Sodium 129 mmol/L (136-145); Total Bilirubin 0.2 mg/dL (0.15-1.2); Total Protein 6.2 g/dL (6.6-8.7)
[2021-03-27 19:06] LABS: Troponin 5 2HR Delta 0 ABS# (0-10)
--- NOTE | 2021-03-27 19:24 | PM.HP ---
Providers/Chief Complaint Primary Care Provider: Taina Zarate DO Chief Complaint: low 02, N/V, covid + History of Present Illness Christopher Reinoso is a 60 year old male with PMH of CAD, ischemic cardiomyopathy with EF of 45%, HTN, HLD presented today after being referred to the ER from infusion center where he had gone for monoclonal infusion. Unfortunately because he was saturating in 85-87% on RA he could not qualify for infusion. As per the patient, he has been having subjective feel of fever(s), chills, non-productive cough, fatigue, body aches, headache, loss of sense of smell and/or taste, throat pain, nasal congestion, nausea, vomiting and diarrhea since 03/20/2021 and he had exposure to COVID 19 and tested positive for COVID 19 on 03/26/2021. In ER he has been needing upto 4 L of oxygen supplementation to maintain his saturation over 90%. Review of Systems General: Reports: 10 or more systems reviewed and unremarkable except in HPI and below Const: Denies: fever(s), chills, body aches, change in appetite, change in weight, malaise, night sweats, diaphoresis, change in sleep pattern, daytime sleepiness or snoring Eyes: Denies: change in vision, blurry vision, photophobia, eye discomfort or eye discharge ENMT: Denies: throat pain, enlarged tonsils, hoarseness, mouth pain, oral sores, dry mouth, tinnitus, nasal congestion or post nasal drip Card: Denies: chest pain, palpitations, irregular heart rhythm, edema, swelling of feet/ankles, lightheadedness, syncope, pre-syncope, dyspnea on exertion, orthopnea, leg pain with exertion or acrocyanosis Resp: Denies: dyspnea, productive cough, non-productive cough, wheezing, stridor, pain on inspiration, change in phlegm color, hemoptysis or chest congestion GI: Denies: abdominal pain, nausea, vomiting, hematemesis, coffee ground emesis, dysphagia, heartburn, diarrhea, constipation, bloating, GI cramping, change in bowel habits, pain on defecation, hematochezia or melena : Denies: flank pain, difficulty urinating, dysuria, urinary frequency, urinary urgency, urinary hesitancy, urinary dribbling, difficulty starting urination, change in urine stream, nocturia or hematuria Musc: Denies: neck pain, back pain, extremity pain, joint pain, joint swelling, joint redness, joint stiffness or limited range of motion Neuro: Denies: headache(s), numbness in extremities, weakness in extremities, sensory changes, lack of coordination, difficulty walking, frequent falls, dizziness, vertigo, confusion, Slurred speech present, difficulty communicating thoughts or seizure-like activity Psych: Denies: anxiety, depression, mood swings, panic attacks, hopelessness or irritability Endo: Denies: polyuria, polydipsia, tired all the time, cold intolerance, excessive sweating, flushing or heat intolerance Amrit/Lymph: Denies: easy bruising or easy bleeding All/Imm: Denies: tongue swelling, facial swelling or acute wheezing Medications/Allergies Home Medications Medication Instructions Recorded Confirmed Last Taken Type atorvastatin 20 mg tablet 20 mg PO DAILY 10/30/20 03/27/21 12/21/20 History metoprolol succinate 50 mg 50 mg PO DAILY 10/30/20 03/27/21 12/21/20 History tablet,extended release 24 hr nitroglycerin 0.4 mg sublingual 0.4 mg SUBLINGUAL Q5M PRN 10/30/20 03/27/21 12/21/20 History tablet isosorbide mononitrate 30 mg 30 mg PO DAILY 30 Days #30 tab 12/28/20 03/27/21 Unknown Rx tablet,extended release 24 hr lisinopril 40 mg tablet 40 mg PO DAILY #30 tab 02/12/21 03/27/21 Unknown Rx aspirin [Aspir-81] 81 mg PO DAILY 03/27/21 03/27/21 Unknown History Allergies Allergy/AdvReac Type Severity Reaction Status Date / Time No Known Allergies Allergy Verified 03/26/21 10:34 PFSH Acute PFSH: Medical History Atherosclerosis of [place] coronary artery of [place] heart with stable angina pectoris BPH (benign prostatic hyperplasia) Dyslipidemia (high LDL; low HDL) Essential hypertension History of hypertension Hx of chest pain Surgical History History of PTCA Family History Brother CAD (coronary artery disease) Lung disease Father CAD (coronary artery disease) Cancer Mother Diabetes Lung disease Denies family history of Clotting disorder Dementia Chronic kidney disease (CKD) Suicide Anesthesia complication Bleeding disorder Stroke Social History Smoking and tobacco status: former smoker Alcohol intake: current Alcohol intake frequency: 3 or more drinks per day Alcohol type: beer Housing: House Vitals/I&O/Wt Last Vital Signs Temp 99.4 F 03/27/21 14:37 Pulse 70 03/27/21 18:17 Resp 18 03/27/21 18:17 BP 143/75 03/27/21 18:17 Pulse Ox 95 03/27/21 18:17 Weight last 48 hrs Weight 95.254 kg Physical Exam Narrative: EXAM NARRATIVE: General: No acute distress, AO x3 HEENT: PERRLA, pupils bilaterally equal and reactive Chest: Normal vesicular breath sounds, no added sounds, equal good air entry bilaterally CVS: S1-S2 regular, no murmurs, no tachycardia, no gallops, no rubs Abdomen: Soft, nontender, no organomegaly, bowel sounds present Neuro: No focal deficits, no facial deformity, AO x3, power 5/5 in all limbs Data : 03/28/21 05:50 03/28/21 05:50 Micro: Microbiology 03/27/21 19:00 Blood Culture - Preliminary Blood SPECIMEN COLLECTED 03/27/21 19:06 Blood Culture - Preliminary Blood SPECIMEN COLLECTED A&P Assessment and plan (1) Hypoxemia: Status: Acute (2) COVID-19: Status: Acute (3) Ischemic cardiomyopathy: Status: Acute (4) Benign essential HTN: Status: Acute (5) Atherosclerosis of coronary artery of [place] heart without angina pectoris: Status: Acute Qualifiers: Coronary Disease-Associated Artery/Lesion type: unspecified vessel or lesion type Qualified Code(s): I25.10 - Atherosclerotic heart disease of [place] coronary artery without angina pectoris (6) Dyslipidemia: Status: Acute (7) Hyponatremia: Status: Acute Additional A&P Information Hypoxia secondary to COVID-19 pneumonia: Mild to moderate disease. Oxygen supplementation keeping saturation over 88%. Dexamethasone 6 mg daily. Remdesivir to finish a 5-day course. Vitamin C, zinc. Advair, Spiriva. Pulmonary toilet with incentive spirometry flutter valve. We will monitor inflammatory markers including ferritin, ESR, CRP, D-dimer, fibrinogen. If getting elevated will dose Actemra. Patient was made aware of the same and he has given verbal consent. Check D-dimer, if elevated will get CTA otherwise CT chest. For now we will start patient on full dose anticoagulation. Will monitor for anemia or blood loss. Check sputum culture, procalcitonin, urine Legionella, bacterial antigen, blood culture. Low suspicion of bacterial infection for now. For now hold off on antibiotics. Given hypoxia will try to keep patient as negative as possible. Patient clinically dehydrated for now. Check ProBnp ECHO done 01/05 shows EF of 35% with global LV hypokynesia, no DD, RVSP of 15 mmhg. For now will hold off on hydration and diuresis. Strict input output charting, daily weights. Hyponatremia: Baseline sodium around 136. 129 today. SIADH due to COVID vs hypervoluemic hyponatremia. Urine lytes, urine creat, urine osmolality. Will monitor QAM for now. HTN: Goal BP less than 140/90mmhg. C/w home dose of Imdur, lopressor. Hold losartan for now. CAD: No active chest pain. C/w ASA, statin, lopressor. Check lipid panel. C/w other oral meds. Check TSH, iron panel. Code status: Full code Full dose Ac will help with DVT PPx Famotidine for DVT PPx Cardiac diet Attestations Medical Necessity Statement*: For more than 2 MN for hypoxia 2/2 Covid 19 Time Spent in Patient Care: Greater than 35 minutes (>than 50% of time spent in counselling and/or direct pt care on unit). Coding Level of Care Code Acute Warehouse Packaging Supervisor for Chg Fwd Diagnoses Hypoxemia R09.02 COVID-19 U07.1 Ischemic cardiomyopathy I25.5 Benign essential HTN I10 Atherosclerosis of coronary artery of [place] heart without angina pectoris I25.10 Coronary Disease-Associated Artery/Lesion type: unspecified vessel or lesion type Dyslipidemia E78.5 Hyponatremia E87.1
[2021-03-27 19:57] LABS: Iron 32 ug/dL (59-158); Percent Saturation 16.8 % (20-50); Total Iron Binding Capacity 190 mcg/dl; Unsaturated Iron Binding 158 ug/dL (112-347)
[2021-03-27] MEDS: famotidine 20 mg/2 mL INJ IVP (20:00)
[2021-03-27 20:08] LABS: Thyroid Stimulating Hormone 0.89 uIU/mL (0.27-4.20)
[2021-03-27] MEDS: remdesivir 200 MG in sodium chloride 0.9% (100 ml) 100 ML 100 MG IV (20:08)
[2021-03-27] MEDS: dexamethasone 4 mg Tablet 6 MG PO (20:08)
[2021-03-27] MEDS: ascorbic acid 500 mg Tablet 1000 MG PO (20:08)
[2021-03-27] MEDS: apixaban 5 mg Tablet PO (22:13)
[2021-03-27] MEDS: benzonatate 100 mg Capsule PO (22:18)
[2021-03-27 22:29] LABS: D Dimer 2.35 ug/mIFEU (0-0.59)
[2021-03-28] VITALS (11 sets, daily range): BP systolic 104–140; BP diastolic 57–86; PULSE 55–116; RESP 14–26; TEMP 36.6–37.1; O2SAT 90–97; BMI 30.7
--- NOTE | 2021-03-28 00:03 | CTR_ITS ---
PROCEDURE INFORMATION: Exam: CTA Chest With Contrast Exam date and time: 03/28/2021 12:03 AM Age: 60 years old Clinical indication: Abnormal findings; Abnormal diagnostic tests; Elevated d-dimer; Patient HX: Covid+ w elev d-dimer; Additional info: High dimer TECHNIQUE: Imaging protocol: Computed tomographic angiography of the chest with contrast. 3D rendering (Not supervised by radiologist): MIP and/or 3D reconstructed images were created by the technologist. Radiation optimization: All CT scans at this facility use at least one of these dose optimization techniques: automated exposure control; mA and/or kV adjustment per patient size (includes targeted exams where dose is matched to clinical indication); or iterative reconstruction. Contrast material: OMNI 350; Contrast volume: 78 ml; Contrast route: INTRAVENOUS (IV); COMPARISON: CR XR chest 1V portable [id number] 03/27/2021 3:02 PM RADIATION DOSE METRICS: Total DLP (mGy-cm): 597.74 FINDINGS: Pulmonary arteries: No pulmonary embolism. Aorta: Unremarkable. No aortic aneurysm. No aortic dissection. Lungs: Hazy bilateral pulmonary opacities which are consistent with COVID-19. Pleural spaces: Unremarkable. No pneumothorax. No pleural effusion. Heart: Unremarkable. No cardiomegaly. No pericardial effusion. Mediastinal space: Small hiatal hernia. Lymph nodes: Unremarkable. No enlarged lymph nodes. Bones/joints: Unremarkable. No acute fracture. Soft tissues: Unremarkable. CT/CT angio chest PE protcl [id number] IMPRESSION: 1. No pulmonary embolism. 2. Hazy bilateral pulmonary opacities which are consistent with COVID-19. 3. Small hiatal hernia. Radiation Dose CTDIVOL = (mGy): DLP = 597.74 (mGy-cm)
--- NOTE | 2021-03-28 00:06 | PC.NURSE ---
pt to floor at this time
[2021-03-28] MEDS: iohexol 350 mg/mL 100 mL Btl IV (00:30)
--- NOTE | 2021-03-28 03:25 | PC.NURSE ---
pt refused catheter
--- NOTE | 2021-03-28 03:25 | PC.NURSE ---
no catheter at this time
[2021-03-28 04:43] LABS: Add Urine Culture? No; Add Urine Microscopic? YES; Amorphous Sediment Urine 3+ /hpf; Bacteria Urine TRACE /hpf; Bilirubin Urine Neg (Negative); Blood Urine 3+ (Negative); Calcium Oxalate Crystals Urine 0-4 /hpf; Coarse Granular Casts Urine 0-4 /lpf; Glucose Urine UA Norm (Normal); Ketones Urine Negative (Negative); Leukocyte Esterase Urine Negative (Negative); Nitrate Urine Negative (Negative); Protein Urine 3+ (Negative); RBC Urine 0-4 /hpf (0-2); Renal Epithelial Cells Urine 0 /hpf; Squamous Epithelial Cell Urine 0-4 /hpf (0-5); Urine Appearance SL Hazy (CLEAR); Urine Color Yellow (Yellow); Urobilinogen Urine Norm (Negative); WBC Urine 0-4 /hpf (0-5); pH Urine 5 (5-7)
[2021-03-28 04:51] LABS: Potassium, Radom Urine 62 mmol/L
[2021-03-28 04:57] LABS: Urine Random Chloride 12 mmol/L; Urine Random Sodium 14 mmol/L
--- NOTE | 2021-03-28 06:00 | XR_ITS ---
WS: [id number] Portable AP upright chest, 03/28/2021 Clinical Data: covid Comparison: Portable chest, 03/27/2021 Findings: The bilateral patchy pulmonary opacities remain the same. The heart is slightly enlarged. N o nodules, masses or effusions are seen. XR/XR chest 1V portable [id number] Impression: No change in bilateral patchy pulmonary opacities consistent with pneumonia.
[2021-03-28 07:02] LABS: Hemoglobin 15.6 g/dL (11.7-16.6); Lymphocytes # 0.3 10^3/uL (0.8-4.8); Lymphocytes % 10.3 %; Mean Corpuscular HGB Conc 34.7 g/dL (30.0-36.0); Mean Corpuscular Hemoglobin 34.4 pg (28.0-34.0); Mean Corpuscular Volume 99.3 fL (80-94); Mean Platelet Volume 10.4 fL (7.4-10.4); Monocytes # 0.2 10^3/uL (0.2-0.9); Monocytes % 7.9 %; Neutrophils # 2.37 10^3/uL (1.8-7.7); Neutrophils % 81.5 %; Nucleated Red Blood Cells % 0 %; Platelet Count 120 10^3/cmm (130-400); Red Blood Count 4.53 10^6/uL (4.1-5.3); Red Cell Distribution Width 11.6 % (12.1-15.1); White Blood Count 2.9 10^3/uL (4.0-10.0)
[2021-03-28 07:16] LABS: Estmated Average Glucose 123; Hemoglobin A1C 5.9 % (4.0-6.0)
[2021-03-28 07:19] LABS: D Dimer 1.71 ug/mIFEU (0-0.59)
[2021-03-28 07:25] LABS: Alanine Aminotransferase 30 U/L (0-41); Albumin Level 3.4 g/dL (3.5-5.2); Alkaline Phosphatase 70 IU/L (40-130); Anion Gap 17.6 (5-19); Aspartate Amino Transferase 56 U/L (0-40); Blood Urea Nitrogen 25 mg/dL (8-23); Calcium 8.2 mg/dL (8.5-10.5); Carbon Dioxide 22 mmol/L (22-29); Chloride 96 mmol/L (98-107); Globulin 3.4 g/dL (1.3-4.6); Glomerular Filtration Rate 47.6 mL/min (90-130); Glucose 129 mg/dL (65-115); Magnesium 2.3 mg/dL (1.7-2.3); Osmolality Calculated 278 mOsm/kg (285-295); Phosphorus 3.9 mg/dL (2.5-4.5); Potassium 4.6 mmol/L (3.5-5.1); Sodium 131 mmol/L (136-145); Total Bilirubin 0.3 mg/dL (0.15-1.2); Total Protein 6.8 g/dL (6.6-8.7)
--- NOTE | 2021-03-28 07:34 | PC.NURSE ---
pt voiding well. pt refused catheter.
[2021-03-28 07:39] LABS: NT Pro B Type Natriuretic Pept 666 pg/mL (0-125); Procalcitonin 0.25 ng/mL (0-0.5)
[2021-03-28 07:50] LABS: C Reactive Protein 63.4 mg/L (0.0-4.9); Chol HDL Ratio 3.48 mg/dL (1.0-5.00); Cholesterol 115 mg/dL (0-200); Creatine Phosphokinase 253 U/L (39-308); HDL Cholesterol 33 mg/dL (60-100); LDL Cholesterol Calculated 67 mg/dL (50-129); Triglycerides 75 mg/dL (0-150); VLDL Cholestrol Calculation 15 mg/dL (0-30)
[2021-03-28 08:04] LABS: Ferritin 2457 ng/mL (30-400)
[2021-03-28 08:31] LABS: Erythrocyte Sedimentation Rate 38 mm/hr (0-10)
[2021-03-28] MEDS: thiamine 100 mg Tablet PO (08:32)
[2021-03-28] MEDS: zinc gluconate 50 mg Tablet PO (08:32)
[2021-03-28] MEDS: ferrous gluconate 324 mg Tablet PO ×2 (08:32→17:59)
[2021-03-28] MEDS: aspirin 81 mg EC Tablet PO (08:32)
[2021-03-28] MEDS: metoprolol succinate ER (24 HR) 50 mg Tablet PO (08:32)
[2021-03-28] MEDS: atorvastatin 40 mg Tablet 20 MG PO (08:33)
[2021-03-28] MEDS: isosorbide mononitrate ER 30 mg Tablet PO (08:33)
[2021-03-28] MEDS: apixaban 5 mg Tablet PO ×2 (08:33→20:50)
[2021-03-28] MEDS: azithromycin 250 mg Tablet 500 MG PO (08:33)
[2021-03-28] MEDS: folic acid 1 mg Tablet PO (08:33)
[2021-03-28] MEDS: multivitamin therapeutic Tablet 1 TAB PO (08:33)
[2021-03-28] MEDS: ascorbic acid 500 mg Tablet 1000 MG PO ×2 (08:33→17:59)
[2021-03-28] MEDS: benzonatate 100 mg Capsule PO ×3 (08:34→20:50)
[2021-03-28] MEDS: dexamethasone 4 mg/mL INJ 6 MG IVP (08:53)
[2021-03-28] MEDS: famotidine 20 mg/2 mL INJ IVP ×2 (08:54→18:10)
[2021-03-28] MEDS: sodium chloride 0.9% 1,000 ML 75 ML IV (08:58)
--- NOTE | 2021-03-28 10:50 | PC.CHAP ---
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 ticket sorter visit [] Patient/Family/Request visit [] Outpatient visit [] Follow-up visit [] Physician referral [] Code/Alert [x] Routine visit [] Staff referral [] Actively dying [] Patient sleeping [] Family support [] [] Out of room [] Palliative care [] [] Receiving care in room [] Pre-surgical visit [] Trauma [] Long length of stay [] ICU visit [x] Other: 2A Relational/Emotional Strength [] Patient feels connected with others/family/visitors/staff [] Distress [] Loneliness/isolation [] Abandonment Spirituality of Patient [] Person of Dacia [] Attends Hinduism of their Dacia [] Believes in Prayer [] Reads Bible or Episcopalian materials [] There are Spiritual issues to be addressed Life Consultant Interventions [x] Prayer [] Active listening [] Non-anxious presence [] Spiritual/emotional support [] Crisis/trauma care [] Spiritual counseling [] Bereavement support [] Provided bereavement packet [] Provided Bible/devotional materials [] Provided toy/stuffed animal, coloring book to patient or family member [] Provided Communion [] Anointing/[place] [] Salvation [x] Completed spiritual assessment [] Other: Impact on Illness or Injury [] Angry [] Fearful [] Anxious [] Often cries [] Exhaustion [] Unable to work [] Unable to attend yarsani [] Unable to walk/stand [] Unable to read [] Unable to drive [] Unable to eat/drink [] Unable to sleep [] Unable to be with family [] Patient intubated [] Other: Summary Time spent with patient
--- NOTE | 2021-03-28 12:54 | PM.PN ---
Subjective Subjective: Interval history: No acute events overnight. Patient states he is feeling better than yesterday. Currently on 5 L saturating 92%. Denies any nausea vomiting, headache. Has remained afebrile. Working with incentive spirometry and flutter valve. Vitals/I&O/Wt Last Vital Signs Temp 97.8 F 03/28/21 08:00 Pulse 105 H 03/28/21 08:10 Resp 24 H 03/28/21 08:10 BP 132/86 03/28/21 08:00 Pulse Ox 92 03/28/21 08:10 03/27/21 03/28/21 03/28/21 22:59 06:59 14:59 Intake Total 410 / 410 Balance 410 / 410 Weight last 48 hrs Weight 88.541 kg Weight 94.555 kg Weight 95.254 kg Physical Exam Narrative: EXAM NARRATIVE: General: No acute distress, AO x3 mildly dehydrated today HEENT: PERRLA, pupils bilaterally equal and reactive Chest: Normal vesicular breath sounds, occasional rhonchi over the lung cardenas bilaterally , equal good air entry bilaterally CVS: S1-S2 regular, no murmurs, no tachycardia, no gallops, no rubs Abdomen: Soft, nontender, no organomegaly, bowel sounds present Neuro: No focal deficits, no facial deformity, AO x3, power 5/5 in all limbs Data : 03/28/21 05:50 03/28/21 05:50 Micro: Microbiology 03/28/21 03:20 Bacterial Antigens - Final Urine Kidney 03/28/21 03:15 Legionella Urinary Antigen - Final Urine,Voided 03/27/21 19:00 Blood Culture - Preliminary Blood SPECIMEN COLLECTED 03/27/21 19:06 Blood Culture - Preliminary Blood SPECIMEN COLLECTED A&P Assessment and plan (1) Hypoxemia: Status: Acute (2) COVID-19: Status: Acute (3) Ischemic cardiomyopathy: Status: Acute (4) Acute kidney injury: Status: Acute (5) Hyponatremia: Status: Acute (6) Atherosclerosis of coronary artery of [place] heart without angina pectoris: Status: Acute Qualifiers: Coronary Disease-Associated Artery/Lesion type: unspecified vessel or lesion type Qualified Code(s): I25.10 - Atherosclerotic heart disease of [place] coronary artery without angina pectoris (7) Dyslipidemia: Status: Acute (8) Benign essential HTN: Status: Acute Additional A&P Information Hypoxia secondary to COVID-19 pneumonia: Mild to moderate disease. Oxygen supplementation keeping saturation over 88%. Dexamethasone 6 mg daily. Remdesivir to finish a 5-day course. Vitamin C, zinc. Advair, Spiriva. Pulmonary toilet with incentive spirometry flutter valve. We will monitor inflammatory markers including ferritin, ESR, CRP, D-dimer, fibrinogen. If getting elevated will dose Actemra. Patient was made aware of the same and he has given verbal consent. D-dimer elevated. CTA negative for pulmonary embolism. For now continue with full dose anticoagulation. Most likely patient will need anticoagulation for 2 weeks post discharge. Will monitor for anemia or blood loss. Procalcitonin, urine Legionella, bacterial antigen negative. Sputum culture, blood cultures awaited. Low suspicion of bacterial infection for now. For now hold off on antibiotics. Given hypoxia will try to keep patient as negative as possible. Patient clinically dehydrated for now. proBNP results appreciated. ECHO done 01/05 shows EF of 35% with global LV hypokynesia, no DD, RVSP of 15 mmhg. Patient's creatinine and BUN trending up today start on gentle hydration with normal saline at 50 cc/h. Will monitor with fluid overload Strict input output charting, daily weights. Hyponatremia: Baseline sodium around 136. Better today. Urine lites results appreciated. SIADH ruled out as urine sodium is only 14 Will monitor QAM for now. ADONIS: Most likely secondary to dehydration and hypoxia from severe disease and poor take in setting of home dose of lisinopril. Patient did get a CTA on admission on March 27 but too soon for EDGAR. Fena: Prerenal. IV fluids as above. HTN: Goal BP less than 140/90mmhg. C/w home dose of Imdur, lopressor. Hold losartan for now. CAD: No active chest pain. C/w ASA, statin, lopressor. Check lipid panel. C/w other oral meds. Check TSH, iron panel. Code status: Full code Full dose anticoagulation will help with DVT PPx Famotidine for DVT PPx Cardiac diet Attestations Medical Necessity Statement*: Requires further hospitalization for management of hypoxia secondary COVID-19 pneumonia, acute kidney injury Time Spent in Patient Care: Greater than 35 minutes (>than 50% of time spent in counselling and/or direct pt care on unit). Coding Level of Care Code Acute Floor Space Allocator for Debbieg Fwd Diagnoses Hypoxemia R09.02 COVID-19 U07.1 Ischemic cardiomyopathy I25.5 Acute kidney injury N17.9 Hyponatremia E87.1 Atherosclerosis of coronary artery of [place] heart without angina pectoris I25.10 Coronary Disease-Associated Artery/Lesion type: unspecified vessel or lesion type Dyslipidemia E78.5 Benign essential HTN I10
[2021-03-28 13:44] LABS: Urine Creatinine 160 mg/dL (39-259)
--- NOTE | 2021-03-28 15:18 | PC.NURSE ---
Spoke with patient and he stated anyone could speak with older sister Karine Jacob about his care. Updated PHI in chart.
--- NOTE | 2021-03-28 15:23 | PC.NURSE ---
pt gives verbal permission to speak to sister, Karine Jacob about his care.
--- NOTE | 2021-03-28 16:46 | PC.NURSE ---
Shift Note Frequent safety and comfort rounds continue. Orders and/or nursing care completed as indicated. Patient monitored for response to intervention and treatment(s). Education provided includes treatment plan and safety. Patient and/or guest service representative receptive to teaching. Will continue to monitor.
--- NOTE | 2021-03-28 17:34 | PC.RESP ---
RT Shift Note Frequent safety and respiratory rounds continue. Orders completed as indicated. Patient monitored pre and post treatments throughout shift. Patient tolerated treatments appropriately. Condition did not change. Patient and/or service representative educated on respiratory treatment and medications. Patient and/or service representative verbalized understanding of teaching. Will continue to monitor patient progress.
[2021-03-28] MEDS: remdesivir 100 MG in sodium chloride 0.9% (100 ml) 100 ML IV (18:00)
[2021-03-29] VITALS (9 sets, daily range): BP systolic 99–145; BP diastolic 52–75; PULSE 61–68; RESP 18–32; TEMP 36.4–36.8; O2SAT 82–92
[2021-03-29] MEDS: famotidine 20 mg/2 mL INJ IVP ×2 (06:46→17:32)
[2021-03-29] MEDS: dexamethasone 4 mg/mL INJ 6 MG IVP (06:47)
[2021-03-29 07:18] LABS: D Dimer 1.02 ug/mIFEU (0-0.59)
[2021-03-29 07:35] LABS: Creatine Phosphokinase 187 U/L (39-308); NT Pro B Type Natriuretic Pept 1106 pg/mL (0-125)
[2021-03-29 07:48] LABS: Ferritin 2441 ng/mL (30-400)
[2021-03-29] MEDS: zinc gluconate 50 mg Tablet PO (08:19)
[2021-03-29] MEDS: folic acid 1 mg Tablet PO (08:20)
[2021-03-29] MEDS: azithromycin 250 mg Tablet 500 MG PO (08:20)
[2021-03-29] MEDS: aspirin 81 mg EC Tablet PO (08:20)
[2021-03-29] MEDS: metoprolol succinate ER (24 HR) 50 mg Tablet PO (08:20)
[2021-03-29] MEDS: thiamine 100 mg Tablet PO (08:20)
[2021-03-29] MEDS: ferrous gluconate 324 mg Tablet PO ×2 (08:20→17:31)
[2021-03-29] MEDS: benzonatate 100 mg Capsule PO ×3 (08:20→21:15)
[2021-03-29] MEDS: atorvastatin 40 mg Tablet 20 MG PO (08:20)
[2021-03-29] MEDS: isosorbide mononitrate ER 30 mg Tablet PO (08:20)
[2021-03-29 08:55] LABS: Hematocrit 40.8 % (42.0-52.0); Hemoglobin 14.3 g/dL (11.7-16.6); Lymphocytes # 0.4 10^3/uL (0.8-4.8); Mean Corpuscular Hemoglobin 34.5 pg (28.0-34.0); Mean Corpuscular Volume 98.6 fL (80-94); Mean Platelet Volume 10.5 fL (7.4-10.4); Monocytes # 0.5 10^3/uL (0.2-0.9); Monocytes % 10.5 %; Neutrophils # 3.84 10^3/uL (1.8-7.7); Neutrophils % 81.1 %; Nucleated Red Blood Cells % 0 %; Platelet Count 125 10^3/cmm (130-400); Red Blood Count 4.14 10^6/uL (4.1-5.3); Red Cell Distribution Width 11.6 % (12.1-15.1); White Blood Count 4.7 10^3/uL (4.0-10.0)
[2021-03-29] MEDS: ascorbic acid 500 mg Tablet PO (09:04)
[2021-03-29] MEDS: apixaban 5 mg Tablet PO ×2 (09:04→21:15)
[2021-03-29] MEDS: FUROsemide 40 mg Tablet PO (09:04)
[2021-03-29 09:13] LABS: Alanine Aminotransferase 43 U/L (0-41); Albumin Level 3.2 g/dL (3.5-5.2); Alkaline Phosphatase 67 IU/L (40-130); Anion Gap 17.8 (5-19); Aspartate Amino Transferase 76 U/L (0-40); Blood Urea Nitrogen 38 mg/dL (8-23); Carbon Dioxide 20 mmol/L (22-29); Chloride 98 mmol/L (98-107); Globulin 2.8 g/dL (1.3-4.6); Glomerular Filtration Rate 34.1 mL/min (90-130); Glucose 129 mg/dL (65-115); Osmolality Calculated 285 mOsm/kg (285-295); Potassium 3.8 mmol/L (3.5-5.1); Sodium 132 mmol/L (136-145); Total Bilirubin 0.2 mg/dL (0.15-1.2)
--- NOTE | 2021-03-29 16:35 | PM.PN ---
Subjective Subjective: Interval history: No complaints overnight. Patient denies any nausea vomiting, headache. Looks very tired and fatigued today. States he is feeling better though. Saturating 90% on 4 L. During the day oxygen supplementation had to go up to 6 L. Documented urine output 1000 last 24 hours, though I am not sure if it is true. Vitals/I&O/Wt Last Vital Signs Temp 98.2 F 03/29/21 16:00 Pulse 68 03/29/21 16:00 Resp 18 03/29/21 16:00 BP 145/75 03/29/21 16:00 Pulse Ox 82 L 03/29/21 16:00 03/29/21 03/29/21 03/29/21 06:59 14:59 22:59 Intake Total 928.75 / 928.75 Output Total 1050 / 1050 Balance -1050 / 371.25 928.75 / 928.75 Weight last 48 hrs Weight 95.889 kg Weight 88.541 kg Weight 94.555 kg Physical Exam Narrative: EXAM NARRATIVE: General: No acute distress, AO x3 mildly dehydrated today HEENT: PERRLA, pupils bilaterally equal and reactive Chest: Normal vesicular breath sounds, occasional rhonchi over the lung cardenas bilaterally , equal good air entry bilaterally CVS: S1-S2 regular, no murmurs, no tachycardia, no gallops, no rubs Abdomen: Soft, nontender, no organomegaly, bowel sounds present Neuro: No focal deficits, no facial deformity, AO x3, power 5/5 in all limbs Data : 03/29/21 05:38 03/29/21 05:38 Micro: Microbiology 03/28/21 03:15 Gram Stain - Final Sputum - Expectorated Sputum 03/27/21 19:00 Blood Culture - Preliminary Blood NEGATIVE TO DATE 03/27/21 19:06 Blood Culture - Preliminary Blood NEGATIVE TO DATE 03/28/21 03:15 MRSA Culture - Final Nose A&P Assessment and plan (1) Hypoxemia: Status: Acute (2) COVID-19: Status: Acute (3) Ischemic cardiomyopathy: Status: Acute (4) Acute kidney injury: Status: Acute (5) Hyponatremia: Status: Acute (6) Atherosclerosis of coronary artery of [place] heart without angina pectoris: Status: Acute Qualifiers: Coronary Disease-Associated Artery/Lesion type: unspecified vessel or lesion type Qualified Code(s): I25.10 - Atherosclerotic heart disease of [place] coronary artery without angina pectoris (7) Dyslipidemia: Status: Acute (8) Benign essential HTN: Status: Acute Additional A&P Information Hypoxia secondary to COVID-19 pneumonia: Mild to moderate disease. Oxygen supplementation keeping saturation over 88%. Dexamethasone 6 mg daily. Remdesivir to finish a 5-day course. Vitamin C, zinc. Advair, Spiriva. Pulmonary toilet with incentive spirometry flutter valve. We will monitor inflammatory markers including ferritin, ESR, CRP, D-dimer, fibrinogen. If getting elevated will dose Actemra. Patient was made aware of the same and he has given verbal consent. D-dimer elevated. CTA negative for pulmonary embolism. For now continue with full dose anticoagulation. Most likely patient will need anticoagulation for 2 weeks post discharge. Will monitor for anemia or blood loss. Procalcitonin, urine Legionella, bacterial antigen negative. Sputum culture, blood cultures awaited. Low suspicion of bacterial infection for now. We will do a 3-day course of azithromycin. Given hypoxia will try to keep patient as negative as possible. Patient clinically dehydrated for now. proBNP results appreciated. ECHO done 01/05 shows EF of 35% with global LV hypokynesia, no DD, RVSP of 15 mmhg. Patient's creatinine and BUN trending up today start on gentle hydration with normal saline at 50 cc/h. Will monitor with fluid overload Strict input output charting, daily weights. Hyponatremia: Baseline sodium around 136. Better today. Urine lites results appreciated. SIADH ruled out as urine sodium is only 14 Will monitor QAM for now. ADONIS: Creatinine worsening today. Most likely secondary to dehydration and hypoxia from severe disease and poor take in setting of home dose of lisinopril. Patient did get a CTA on admission on March 27 but too soon for EDGAR. Fena: Prerenal. IV fluids as above. HTN: Goal BP less than 140/90mmhg. C/w home dose of Imdur, lopressor. Hold losartan for now. CAD: No active chest pain. C/w ASA, statin, lopressor. Check lipid panel. C/w other oral meds. Code status: Full code Full dose anticoagulation will help with DVT PPx Famotidine for DVT PPx Cardiac diet Attestations Medical Necessity Statement*: Requires further hospitalization for management of hypoxia secondary COVID-19 pneumonia, ongoing ADONIS and hyponatremia Time Spent in Patient Care: Greater than 35 minutes (>than 50% of time spent in counselling and/or direct pt care on unit). Coding Level of Care Code Acute Land Planner for Chg Fwd Diagnoses Hypoxemia R09.02 COVID-19 U07.1 Ischemic cardiomyopathy I25.5 Acute kidney injury N17.9 Hyponatremia E87.1 Atherosclerosis of coronary artery of [place] heart without angina pectoris I25.10 Coronary Disease-Associated Artery/Lesion type: unspecified vessel or lesion type Dyslipidemia E78.5 Benign essential HTN I10
[2021-03-29] MEDS: sodium chloride 0.9% 1,000 ML 75 ML IV (17:31)
[2021-03-29] MEDS: remdesivir 100 MG in sodium chloride 0.9% (100 ml) 100 ML 200 MG IV (17:31)
--- NOTE | 2021-03-29 22:02 | PC.RESP ---
RT Shift Note Frequent safety and respiratory rounds continue. Orders completed as indicated. Patient monitored pre and post treatments throughout shift. Patient [Did tolerate treatments appropriately. Condition .DidNotChange]. Patient and/or sales support representative educated on respiratory treatment and medications. Patient and/or sales support representative [ResponseToTeaching]. Will continue to monitor patient progress.
[2021-03-29] MEDS: cefTRIAXone 1,000 MG in sodium chloride 0.9% (plus) 100 ML 200 MG IV (23:19)
[2021-03-30] VITALS (11 sets, daily range): BP systolic 98–142; BP diastolic 52–81; PULSE 61–87; RESP 17–24; TEMP 36.3–36.7; O2SAT 78–95
--- NOTE | 2021-03-30 06:00 | XR_ITS ---
WS: [id number] Portable AP upright chest, 03/30/2021 Clinical Data: covid Comparison: Portable chest, 03/28/2021. Findings: The patchy bilateral pulmonary opacities remain the same. The heart is slightly enlarged. T he aortic arch is tortuous. XR/XR chest 1V portable [id number] Impression: No change in patchy bilateral pulmonary opacities.
[2021-03-30] MEDS: sodium chloride 0.9% 1,000 ML 75 ML IV (06:18)
[2021-03-30] MEDS: famotidine 20 mg/2 mL INJ IVP ×2 (06:18→17:37)
[2021-03-30] MEDS: dexamethasone 4 mg/mL INJ 6 MG IVP (06:19)
[2021-03-30 06:33] LABS: Basophils % 0.2 %; Hematocrit 38.2 % (42.0-52.0); Hemoglobin 13.5 g/dL (11.7-16.6); Lymphocytes # 0.3 10^3/uL (0.8-4.8); Lymphocytes % 6.5 %; Mean Corpuscular HGB Conc 35.3 g/dL (30.0-36.0); Mean Corpuscular Hemoglobin 34.8 pg (28.0-34.0); Mean Corpuscular Volume 98.5 fL (80-94); Mean Platelet Volume 10.3 fL (7.4-10.4); Monocytes # 0.7 10^3/uL (0.2-0.9); Monocytes % 13.7 %; Neutrophils # 4.03 10^3/uL (1.8-7.7); Neutrophils % 78.8 %; Nucleated Red Blood Cells % 0 %; Platelet Count 132 10^3/cmm (130-400); Red Blood Count 3.88 10^6/uL (4.1-5.3); Red Cell Distribution Width 11.7 % (12.1-15.1); White Blood Count 5.1 10^3/uL (4.0-10.0)
--- NOTE | 2021-03-30 06:39 | PC.NURSE ---
Shift Note Frequent safety and comfort rounds continue. Orders and/or nursing care completed as indicated. Patient monitored for response to intervention and treatment(s). Education provided includes the importance of wearing telemetry. Patient and/or payable representative did not respond well to education, still refusing to wear telemetry. Will continue to monitor.
[2021-03-30 06:49] LABS: D Dimer 0.58 ug/mIFEU (0-0.59)
[2021-03-30 07:13] LABS: Alanine Aminotransferase 41 U/L (0-41); Alkaline Phosphatase 64 IU/L (40-130); Anion Gap 13.8 (5-19); Aspartate Amino Transferase 58 U/L (0-40); Blood Urea Nitrogen 37 mg/dL (8-23); C Reactive Protein 17.3 mg/L (0.0-4.9); Calcium 7.6 mg/dL (8.5-10.5); Carbon Dioxide 20 mmol/L (22-29); Chloride 104 mmol/L (98-107); Creatine Phosphokinase 100 U/L (39-308); Globulin 2.6 g/dL (1.3-4.6); Glomerular Filtration Rate 38.6 mL/min (90-130); Glucose 134 mg/dL (65-115); NT Pro B Type Natriuretic Pept 1266 pg/mL (0-125); Osmolality Calculated 289 mOsm/kg (285-295); Potassium 3.8 mmol/L (3.5-5.1); Sodium 134 mmol/L (136-145); Total Bilirubin 0.2 mg/dL (0.15-1.2); Total Protein 5.6 g/dL (6.6-8.7)
[2021-03-30 07:20] LABS: Creatinine Clr Calc Pharmacy 48.9398
[2021-03-30 07:28] LABS: Ferritin 2350 ng/mL (30-400)
[2021-03-30 07:52] LABS: Erythrocyte Sedimentation Rate 23 mm/hr (0-10)
[2021-03-30] MEDS: azithromycin 250 mg Tablet 500 MG PO (08:41)
[2021-03-30] MEDS: ferrous gluconate 324 mg Tablet PO ×2 (08:41→17:37)
[2021-03-30] MEDS: metoprolol succinate ER (24 HR) 50 mg Tablet PO (08:41)
[2021-03-30] MEDS: benzonatate 100 mg Capsule PO ×3 (08:41→21:18)
[2021-03-30] MEDS: aspirin 81 mg EC Tablet PO (08:41)
[2021-03-30] MEDS: thiamine 100 mg Tablet PO (08:41)
[2021-03-30] MEDS: ascorbic acid 500 mg Tablet PO (08:41)
[2021-03-30] MEDS: atorvastatin 40 mg Tablet 20 MG PO (08:42)
[2021-03-30] MEDS: isosorbide mononitrate ER 30 mg Tablet PO (08:42)
[2021-03-30] MEDS: folic acid 1 mg Tablet PO (08:42)
[2021-03-30] MEDS: apixaban 5 mg Tablet PO ×2 (08:48→21:18)
[2021-03-30] MEDS: zinc gluconate 50 mg Tablet PO (08:51)
--- NOTE | 2021-03-30 15:01 | P.PN_ITS ---
Subjective Subjective: Interval history: No evidence overnight. Today morning patient was seen in prone position. He is on 5 L saturating 92. States he is feeling stable. Denies any nausea vomiting, headache. Vitals/I&O/Wt Last Vital Signs Temp 97.9 F 03/30/21 12:00 Pulse 71 03/30/21 12:00 Resp 19 H 03/30/21 12:00 BP 98/52 03/30/21 12:00 Pulse Ox 87 L 03/30/21 12:00 03/30/21 03/30/21 03/30/21 06:59 14:59 22:59 Intake Total 1058.75 / 2207.50 600 / 600 Output Total 750 / 750 Balance 308.75 / 1457.50 600 / 600 Weight last 48 hrs Weight 94.665 kg Weight 95.889 kg Physical Exam 2 Narrative: EXAM NARRATIVE: General: No acute distress, AO x3 HEENT: PERRLA, pupils bilaterally equal and reactive Chest: Normal vesicular breath sounds, occasional rhonchi over the lung cardenas bilaterally , equal good air entry bilaterally CVS: S1-S2 regular, no murmurs, no tachycardia, no gallops, no rubs Abdomen: Soft, nontender, no organomegaly, bowel sounds present Neuro: No focal deficits, no facial deformity, AO x3, power 5/5 in all limbs Data : 03/30/21 05:23 03/30/21 05:23 Micro: Microbiology 03/28/21 03:15 Gram Stain - Final Sputum - Expectorated Sputum Sputum Culture - Final A&P Assessment and plan (1) Hypoxemia: Status: Acute (2) COVID-19: Status: Acute (3) Ischemic cardiomyopathy: Status: Acute (4) Acute kidney injury: Status: Acute (5) Hyponatremia: Status: Acute (6) Atherosclerosis of coronary artery of [place] heart without angina pectoris: Status: Acute Qualifiers: Coronary Disease-Associated Artery/Lesion type: unspecified vessel or lesion type Qualified Code(s): I25.10 - Atherosclerotic heart disease of [place] coronary artery without angina pectoris (7) Dyslipidemia: Status: Acute (8) Benign essential HTN: Status: Acute Additional A&P Information Hypoxia secondary to COVID-19 pneumonia: Mild to moderate disease. Oxygen supplementation keeping saturation over 88%. Dexamethasone 6 mg daily. Remdesivir to finish a 5-day course. Vitamin C, zinc. Advair, Spiriva. Pulmonary toilet with incentive spirometry flutter valve. We will monitor inflammatory markers including ferritin, ESR, CRP, D-dimer, fibrinogen. CRP 70>>17, ESR 38 >>23. If getting elevated will dose Actemra. Patient was made aware of the same and he has given verbal consent. D-dimer elevated. CTA negative for pulmonary embolism. For now continue with full dose anticoagulation. Most likely patient will need anticoagulation for 2 weeks post discharge. Will monitor for anemia or blood loss. Procalcitonin, urine Legionella, bacterial antigen negative. Sputum culture, blood cultures awaited. Low suspicion of bacterial infection for now. We will do a 3-day course of azithromycin. Given hypoxia will try to keep patient as negative as possible. Patient clinically dehydrated for now. proBNP results appreciated. ECHO done 01/05 shows EF of 35% with global LV hypokynesia, no DD, RVSP of 15 mmhg. Patient's creatinine and BUN trending up today start on gentle hydration with normal saline at 50 cc/h. Will monitor with fluid overload Strict input output charting, daily weights. Hyponatremia: Improving. Baseline sodium around 136. Better today. Urine lites results appreciated. SIADH ruled out as urine sodium is only 14 Will monitor QAM for now. ADONIS: Creatinine better than yesterday. Down to 1.8. Baseline around 1.1 Most likely secondary to dehydration and hypoxia from severe disease and poor take in setting of home dose of lisinopril. Patient did get a CTA on admission on March 27 but too soon for EDGAR. Fena: Prerenal. IV fluids as above. HTN: Goal BP less than 140/90mmhg. C/w home dose of Imdur, lopressor. Hold losartan for now. CAD: No active chest pain. C/w ASA, statin, lopressor. Check lipid panel. C/w other oral meds. Code status: Full code Full dose anticoagulation will help with DVT PPx Famotidine for DVT PPx Cardiac diet. Patient's care discussed in detail with his over the phone. All the questions were answered. Attestations Medical Necessity Statement*: Requires further hospitalization for management of hypoxia secondary COVID-19 pneumonia in setting of ischemic congestive heart failure, hyponatremia, acute kidney injury Time Spent in Patient Care: Greater than 35 minutes (>than 50% of time spent in counselling and/or direct pt care on unit) . Coding Level of Care Code Acute Oil Well Services Superintendent for Chg Fwd Diagnoses Hypoxemia R09.02 COVID-19 U07.1 Ischemic cardiomyopathy I25.5 Acute kidney injury N17.9 Hyponatremia E87.1 Atherosclerosis of coronary artery of [place] heart without angina pectoris I25.10 Coronary Disease-Associated Artery/Lesion type: unspecified vessel or lesion type Dyslipidemia E78.5 Benign essential HTN I10
[2021-03-30] MEDS: morphine 4 mg/mL SDV 1 mL 2 MG IVP (16:13)
[2021-03-30] MEDS: acetaminophen 325 mg Tablet 650 MG PO (16:21)
[2021-03-30] MEDS: remdesivir 100 MG in sodium chloride 0.9% (100 ml) 100 ML IV (17:36)
--- NOTE | 2021-03-30 20:01 | PC.NURSE ---
RT Shift Note Frequent safety and respiratory rounds continue. Orders completed as indicated. Patient monitored pre and post treatments throughout shift. Pt reported of headache and pain all over body. Pt stated nasal cannula is hurting his nose and giving him headache. RT Arenda change to non-breather mask. Patient did tolerate treatments appropriately. Tylenol given for headache. Morphine given for severe headache. Pt Condition Improve. Patient and/or banking representative educated on respiratory treatment and medications. Patient verbalizes understanding. Will continue to monitor patient progress.
--- NOTE | 2021-03-30 20:07 | PC.NURSE ---
Shift Note Frequent safety and comfort rounds continue. Orders and/or nursing care completed as indicated. Patient monitored for response to intervention and treatment(s). Pt stated nasal cannula is hurting his nose and giving him headache. RT Arenda change to non-breather mask. Patient did tolerate treatments appropriately. Tylenol given for headache. Morphine given for severe headache. Pt Condition Improve. Education provided includes keeping his oxygen and deep breathing and proning. Patient verbalizes understanding. Will continue to monitor.
[2021-03-30] MEDS: cefTRIAXone 1,000 MG in sodium chloride 0.9% (plus) 100 ML 200 MG IV (22:09)
[2021-03-31] VITALS (13 sets, daily range): BP systolic 111–154; BP diastolic 66–88; PULSE 53–76; RESP 11–26; TEMP 36.2–36.7; O2SAT 83–94
--- NOTE | 2021-03-31 00:56 | PC.NURSE ---
Patient desat to 75% on 15LPM O2 on NRB mask. Airvo was tried, however desats as well on Airvo. Dr. Ramirez was contacted and notified of same, and order Bipap placement. RT was told of Bipap order. Patient was placed on Bipap with 70% O2, SPO2 came up to 96%. Patient remains stable. Observation continues.
[2021-03-31] MEDS: famotidine 20 mg/2 mL INJ IVP ×2 (06:14→19:51)
[2021-03-31] MEDS: dexamethasone 4 mg/mL INJ 6 MG IVP (06:14)
[2021-03-31 06:33] LABS: Basophils % 0.2 %; Hematocrit 38.4 % (42.0-52.0); Hemoglobin 13.3 g/dL (11.7-16.6); Lymphocytes # 0.4 10^3/uL (0.8-4.8); Lymphocytes % 6.7 %; Mean Corpuscular HGB Conc 34.6 g/dL (30.0-36.0); Mean Corpuscular Hemoglobin 34.4 pg (28.0-34.0); Mean Corpuscular Volume 99.2 fl (80-94); Mean Platelet Volume 10.3 fL (7.4-10.4); Monocytes # 0.6 10^3/uL (0.2-0.9); Neutrophils # 5.46 10^3/uL (1.8-7.7); Neutrophils % 83.3 %; Nucleated Red Blood Cells % 0 %; Platelet Count 138 10^3/cmm (130-400); Red Blood Count 3.87 10^6/uL (4.1-5.3); Red Cell Distribution Width 11.8 % (12.1-15.1); White Blood Count 6.6 10^3/uL (4.0-10.0)
--- NOTE | 2021-03-31 06:50 | PC.NURSE ---
Patient spent an uneventful shift last pm. Was switched from NRB to Bipap. Nil distress noted. Remains stable. Observation continues.
[2021-03-31 06:57] LABS: Alanine Aminotransferase 40 U/L (0-41); Albumin Level 2.8 g/dL (3.5-5.2); Alkaline Phosphatase 67 IU/L (40-130); Anion Gap 15.2 (5-19); Aspartate Amino Transferase 47 U/L (0-40); Blood Urea Nitrogen 32 mg/dL (8-23); Calcium 7.3 mg/dL (8.5-10.5); Carbon Dioxide 21 mmol/L (22-29); Chloride 104 mmol/L (98-107); Globulin 2.1 g/dL (1.3-4.6); Glomerular Filtration Rate 51.5 mL/min (90-130); Glucose 113 mg/dL (65-115); Osmolality Calculated 290 mOsm/kg (285-295); Potassium 4.2 mmol/L (3.5-5.1); Sodium 136 mmol/L (136-145); Total Bilirubin 0.3 mg/dL (0.15-1.2); Total Protein 4.9 g/dL (6.6-8.7)
[2021-03-31] MEDS: aspirin 81 mg EC Tablet PO (11:52)
[2021-03-31] MEDS: thiamine 100 mg Tablet PO (11:53)
[2021-03-31] MEDS: isosorbide mononitrate ER 30 mg Tablet PO (11:53)
[2021-03-31] MEDS: ferrous gluconate 324 mg Tablet PO ×2 (11:53→18:54)
[2021-03-31] MEDS: ascorbic acid 500 mg Tablet PO (11:53)
[2021-03-31] MEDS: atorvastatin 40 mg Tablet 20 MG PO (11:53)
[2021-03-31] MEDS: benzonatate 100 mg Capsule PO ×3 (11:54→21:26)
[2021-03-31] MEDS: folic acid 1 mg Tablet PO (11:54)
[2021-03-31] MEDS: zinc gluconate 50 mg Tablet PO (11:54)
[2021-03-31] MEDS: FUROsemide 40 mg Tablet PO (11:54)
[2021-03-31] MEDS: azithromycin 250 mg Tablet 500 MG PO (11:54)
[2021-03-31] MEDS: apixaban 5 mg Tablet PO ×2 (11:55→21:26)
[2021-03-31] MEDS: metoprolol succinate ER (24 HR) 50 mg Tablet PO (11:55)
--- NOTE | 2021-03-31 12:59 | P.PN_ITS ---
Subjective Subjective: Interval history: No acute events overnight. On examination today patient was on 11 L high flow nasal cannula saturating 86%. He was complaining of burning sensation in his nose so the oxygen has been out of his nose for now. During examination he was transitioned over to low flow heated high flow with 35 L 85%. His oxygen saturation improved to 93% in 5 minutes. Patient was not tachypneic. States he would like to go back home on Friday. We did discuss unfortunately is requiring high oxygen supplementation for now and if he continues to require this much oxygen on Friday it is not possible for him to be discharged. Patient verbalized understanding. He is working well with incentive spirometry and flutter valve. He is proning himself as much as possible. Vitals/I&O/Wt Last Vital Signs Temp 97.7 F 03/31/21 12:00 Pulse 67 03/31/21 12:00 Resp 20 H 03/31/21 12:00 BP 141/74 03/31/21 12:00 Pulse Ox 92 03/31/21 12:00 03/30/21 03/31/21 03/31/21 22:59 06:59 14:59 Intake Total 1422.5 / 2022.5 220 / 2242.5 475 / 475 Output Total 300 / 300 410 / 710 Balance 1122.5 / 1722.5 -190 / 1532.5 475 / 475 Weight last 48 hrs Weight 95.345 kg Weight 91.308 kg Weight 94.665 kg Physical Exam Narrative: EXAM NARRATIVE: General: No acute distress, AO x3 HEENT: PERRLA, pupils bilaterally equal and reactive Chest: Coarse crackles present in the lower lung cardenas, rhonchi present all over the lung cardenas, bilateral, equal good air entry bilaterally CVS: S1-S2 regular, soft pansystolic murmur at apex, no tachycardia, no gallops, no rubs Abdomen: Soft, nontender, no organomegaly, bowel sounds present Neuro: No focal deficits, no facial deformity, AO x3, power 5/5 in all limbs Data : 03/31/21 04:18 03/31/21 04:18 Micro: Microbiology 03/28/21 03:15 Gram Stain - Final Sputum - Expectorated Sputum Sputum Culture - Final Microbiology 03/28/21 03:15 Sputum - Expectorated Sputum Gram Stain - Final 03/28/21 03:15 Sputum - Expectorated Sputum Sputum Culture - Final 03/27/21 19:00 Blood Blood Culture - Preliminary NEGATIVE TO DATE 03/27/21 19:06 Blood Blood Culture - Preliminary NEGATIVE TO DATE 03/28/21 03:15 Nose MRSA Culture - Final 03/28/21 03:20 Urine Kidney Bacterial Antigens - Final 03/28/21 03:15 Urine,Voided Legionella Urinary Antigen - Final A&P Assessment and plan (1) Hypoxemia: Status: Acute (2) COVID-19: Status: Acute (3) Ischemic cardiomyopathy: Status: Acute (4) Acute kidney injury: Status: Acute (5) Hyponatremia: Status: Acute (6) Atherosclerosis of coronary artery of [place] heart without angina pectoris: Status: Acute Qualifiers: Coronary Disease-Associated Artery/Lesion type: unspecified vessel or lesion type Qualified Code(s): I25.10 - Atherosclerotic heart disease of [place] coronary artery without angina pectoris (7) Dyslipidemia: Status: Acute (8) Benign essential HTN: Status: Acute Additional A&P Information Hypoxia secondary to COVID-19 pneumonia: Mild to moderate disease. Oxygen supplementation keeping saturation over 88%. Dexamethasone 6 mg daily. Remdesivir to finish a 5-day course. Vitamin C, zinc. Advair, Spiriva. Pulmonary toilet with incentive spirometry flutter valve. We will monitor inflammatory markers including ferritin, ESR, CRP, D-dimer, fibrinogen. For now inflammatory markers trending down. D-dimer normal today. CRP 70>>17, ESR 38 >>23. If getting elevated will dose Actemra. Patient was made aware of the same and he has given verbal consent. D-dimer elevated. CTA negative for pulmonary embolism. For now continue with full dose anticoagulation given he is going higher up in oxygen supplementation requirement. Most likely patient will need anticoagulation for 2 weeks post discharge. Will monitor for anemia or blood loss. Procalcitonin, urine Legionella, bacterial antigen negative. Sputum culture, blood cultures awaited. Low suspicion of bacterial infection for now. For now continue with ceftriaxone given patient age regarding reaction circulation. Given hypoxia will try to keep patient as negative as possible. Patient clinically dehydrated for now. proBNP results appreciated and elevated. ECHO done 01/05 shows EF of 35% with global LV hypokynesia, no DD, RVSP of 15 mmhg. Patient's creatinine and BUN better today. For now ciprofloxacin count is going up stop IV fluids Lasix 40 mg once. Monitor for fluid overload and renal functions. Strict input output charting. We will try to Mullen catheter if the patient to monitor output strictly. Unfortunately patient has been refusing for now. Hyponatremia: Resolved. Baseline sodium around 136. Better today. Urine lites results appreciated. SIADH ruled out as urine sodium is only 14 Will monitor QAM for now. ADONIS: Creatinine better than yesterday. Resolving. Baseline around 1.1 Most likely secondary to dehydration and hypoxia from severe disease and poor take in setting of home dose of lisinopril. Patient did get a CTA on admission on March 27 but too soon for EDGAR. Fena: Prerenal. Stop IV fluids as above. We will continue to monitor daily. HTN: Goal BP less than 140/90mmhg. C/w home dose of Imdur, lopressor. Hold losartan for now. CAD: No active chest pain. C/w ASA, statin, lopressor. C/w other oral meds. Code status: Full code Full dose anticoagulation will help with DVT PPx Famotidine for DVT PPx Cardiac diet. Patient's care discussed in detail with his over the phone. All the questions were answered. Attestations Medical Necessity Statement*: Patient requires further hospitalization for management of ARDS secondary to COVID-19 pneumonia requiring high oxygen supplementation. Time Spent in Patient Care: Greater than 35 minutes (>than 50% of time spent in counselling and/or direct pt care on unit) . Coding Level of Care Code Acute Community Health Coordinator for Kris Ellis Diagnoses Hypoxemia R09.02 COVID-19 U07.1 Ischemic cardiomyopathy I25.5 Acute kidney injury N17.9 Hyponatremia E87.1 Atherosclerosis of coronary artery of [place] heart without angina pectoris I25.10 Coronary Disease-Associated Artery/Lesion type: unspecified vessel or lesion type Dyslipidemia E78.5 Benign essential HTN I10
[2021-03-31 13:40] LABS: NT Pro B Type Natriuretic Pept 1947 pg/mL (0-125)
[2021-03-31] MEDS: remdesivir 100 MG in sodium chloride 0.9% (100 ml) 100 ML IV (18:54)
[2021-03-31] MEDS: acetaminophen 325 mg Tablet 650 MG PO (21:43)
[2021-03-31] MEDS: cefTRIAXone 1,000 MG in sodium chloride 0.9% (plus) 100 ML 200 MG IV (22:32)
[2021-04-01] VITALS (13 sets, daily range): BP systolic 95–145; BP diastolic 65–85; PULSE 48–65; RESP 18–30; TEMP 36.3–37.1; O2SAT 79–98
[2021-04-01 04:52] LABS: ABG PCO2 30.4 mmHg (35-45); ABG PH Result 7.51 (7.35-7.45); Arterial Blood Gas Hematocrit 40.7 % (42-52); Base Excess ABG 1.6 mmol/L (-2.0-2.0); Blood Gas Allen Test Pos; Blood Gas Sample Type Arterial; Carboxyhemoglobin 0.2 %THgb (0.4-20.1); HCO3 ABG 23.9 mmol/L (22-26); HGB O2 Sat 94.6 % (95-100); Ionized Calcium Level - ABG 1.2 mmol/L (1.1-1.4); Methemoglobin 0.5 % (0.4-1.5); Oxygen Saturation ABG 95.3; PO2 ABG 69.2 mmHg (80.0-100.0); Potassium Level - ABG 3.7 mmol/L (3.5-5.0); Total Hemoglobin 13.3 g/dL (14-18)
[2021-04-01 05:02] LABS: Alveolar-Arterial Oxygen Gradi 78.8 mmHg (5-10); Blood Gas Sample Site Radial, right; Oxygen Device NC
--- NOTE | 2021-04-01 06:00 | XRR_ITS ---
PROCEDURE INFORMATION: Exam: XR Chest Exam date and time: 04/01/2021 6:00 AM Age: 60 years old Clinical indication: Shortness of breath; Patient HX: Covid+ SOB TECHNIQUE: Imaging protocol: XR of the chest. Views: 1 view. COMPARISON: CR XR chest 1V portable [id number] 03/30/2021 7:09 AM FINDINGS: Lungs: Bilateral interstitial pulmonary infiltrates are present greater in the left lung. There is increasing infiltrate and opacity in the left base when compared to previous study. Pleural spaces: Unremarkable. No pleural effusion. No pneumothorax. Heart/Mediastinum: Unremarkable. No cardiomegaly. Bones/joints: Unremarkable. XR/XR chest 1V portable [id number] IMPRESSION: Bilateral pulmonary infiltrates consistent with interstitial viral pneumonia. Infiltration in the left base is worsening when compared to previous study.
[2021-04-01] MEDS: famotidine 20 mg/2 mL INJ IVP ×2 (06:11→19:01)
[2021-04-01] MEDS: dexamethasone 4 mg/mL INJ 6 MG IVP (06:14)
[2021-04-01 06:31] LABS: Basophils % 0.1 %; Hematocrit 37.2 % (42.0-52.0); Hemoglobin 13.1 g/dL (11.7-16.6); Lymphocytes # 0.5 10^3/uL (0.8-4.8); Lymphocytes % 7.2 %; Mean Corpuscular HGB Conc 35.2 g/dL (30.0-36.0); Mean Corpuscular Hemoglobin 34.2 pg (28.0-34.0); Mean Corpuscular Volume 97.1 fl (80-94); Mean Platelet Volume 10.4 fL (7.4-10.4); Monocytes # 0.3 10^3/uL (0.2-0.9); Monocytes % 4.7 %; Neutrophils # 6.17 10^3/uL (1.8-7.7); Neutrophils % 87.3 %; Nucleated Red Blood Cells % 0 %; Platelet Count 154 10^3/cmm (130-400); Red Blood Count 3.83 10^6/uL (4.1-5.3); Red Cell Distribution Width 11.6 % (12.1-15.1); White Blood Count 7.1 10^3/uL (4.0-10.0)
[2021-04-01 07:28] LABS: Alanine Aminotransferase 31 U/L (0-41); Albumin Level 2.8 g/dL (3.5-5.2); Alkaline Phosphatase 77 IU/L (40-130); Anion Gap 13.9 (5-19); Aspartate Amino Transferase 35 U/L (0-40); Blood Urea Nitrogen 28 mg/dL (8-23); C Reactive Protein 18.6 mg/L (0.0-4.9); Carbon Dioxide 23 mmol/L (22-29); Chloride 103 mmol/L (98-107); Globulin 2.7 g/dL (1.3-4.6); Glomerular Filtration Rate 61.6 mL/min (90-130); Glucose 97 mg/dL (65-115); NT Pro B Type Natriuretic Pept 2324 pg/mL (0-125); Osmolality Calculated 287 mOsm/kg (285-295); Potassium 3.9 mmol/L (3.5-5.1); Sodium 136 mmol/L (136-145); Total Bilirubin 0.4 mg/dL (0.15-1.2); Total Protein 5.5 g/dL (6.6-8.7)
[2021-04-01 08:28] LABS: Erythrocyte Sedimentation Rate 21 mm/hr (0-10)
--- NOTE | 2021-04-01 08:54 | PM.PN ---
Subjective Subjective: Interval history: Overnight patient has maintained his oxygenation on 35 L 100% FiO2. Currently on examination 91%. Patient is frustrated that he is not improving. Asking to be going home tomorrow. Not working with I-S and Acapella today stating that it is hurting his chest. We did discuss that it is important for him to work with I-S and Acapella as much as possible. Also discussed about need for prone and semiproning. Also discussed unfortunately if he continues to remain this amount of oxygen supplementation he would not be able to go home tomorrow. Vitals/I&O/Wt Last Vital Signs Temp 97.8 F 04/01/21 03:20 Pulse 53 L 04/01/21 06:00 Resp 21 H 04/01/21 03:20 BP 145/85 04/01/21 03:20 Pulse Ox 86 L 04/01/21 03:20 03/31/21 04/01/21 04/01/21 22:59 06:59 14:59 Intake Total 200 / 675 Output Total 1000 / 1000 525 / 1525 Balance -1000 / -525 -325 / -850 Weight last 48 hrs Weight 97.666 kg Weight 95.345 kg Weight 91.308 kg Physical Exam Narrative: EXAM NARRATIVE: General: No acute distress, AO x3 HEENT: PERRLA, pupils bilaterally equal and reactive Chest: Coarse crackles present in the lower lung cardenas, rhonchi present all over the lung cardenas, bilateral, equal good air entry bilaterally CVS: S1-S2 regular, soft pansystolic murmur at apex, no tachycardia, no gallops, no rubs Abdomen: Soft, nontender, no organomegaly, bowel sounds present Neuro: No focal deficits, no facial deformity, AO x3, power 5/5 in all limbs Urinary Catheter Management^: Mullen: Cath Placed During This Visit: yes Reason for Continuing Indwelling Catheter: Other Urinary Catheter Date of Insertion: 03/31/21 Urinary Catheter Time of Insertion: 12:00 Data : 04/01/21 05:25 04/01/21 05:25 A&P Assessment and plan (1) Hypoxemia: Status: Acute (2) COVID-19: Status: Acute (3) Ischemic cardiomyopathy: Status: Acute (4) Acute kidney injury: Status: Acute (5) Hyponatremia: Status: Acute (6) Atherosclerosis of coronary artery of [place] heart without angina pectoris: Status: Acute Qualifiers: Coronary Disease-Associated Artery/Lesion type: unspecified vessel or lesion type Qualified Code(s): I25.10 - Atherosclerotic heart disease of [place] coronary artery without angina pectoris (7) Dyslipidemia: Status: Acute (8) Benign essential HTN: Status: Acute Additional A&P Information Hypoxia secondary to COVID-19 pneumonia: Moderate to severe disease. Oxygen supplementation keeping saturation over 88%. PF ratio 69. Dexamethasone 6 mg daily. Remdesivir to finish a 5-day course. Vitamin C, zinc. Advair, Spiriva. Pulmonary toilet with incentive spirometry flutter valve. We will monitor inflammatory markers including ferritin, ESR, CRP, D-dimer, fibrinogen. For now inflammatory markers trending down. D-dimer normal today. CRP 70>>17, ESR 38 >>23. If getting elevated will dose Actemra. Patient was made aware of the same and he has given verbal consent. D-dimer elevated. CTA negative for pulmonary embolism. For now continue with full dose anticoagulation given he is going higher up in oxygen supplementation requirement. Most likely patient will need anticoagulation for 2 weeks post discharge. Will monitor for anemia or blood loss. Procalcitonin, urine Legionella, bacterial antigen negative. Sputum culture, blood cultures awaited. Low suspicion of bacterial infection for now. For now continue with ceftriaxone given patient is requiring high oxygen supplementation. Given hypoxia will try to keep patient as negative as possible. Patient clinically dehydrated for now. ECHO done 01/05 shows EF of 35% with global LV hypokynesia, no DD, RVSP of 15 mmhg. IV Lasix 40 mg. Plan for 1 L negative in next 24 hours Monitor for fluid overload and renal functions. Strict input output charting. We will try to Mullen catheter if the patient to monitor output strictly. Unfortunately patient has been refusing for now. Hyponatremia: Resolved. Baseline sodium around 136. Better today. Urine lites results appreciated. SIADH ruled out as urine sodium is only 14 Will monitor QAM for now. ADONIS: Resolved. Baseline around 1.1 Most likely secondary to dehydration and hypoxia from severe disease and poor take in setting of home dose of lisinopril. Patient did get a CTA on admission on March 27 but too soon for EDGAR. Fena: Prerenal. Stop IV fluids as above. We will continue to monitor daily. HTN: Goal BP less than 140/90mmhg. C/w home dose of Imdur, lopressor. Hold losartan for now. CAD: No active chest pain. C/w ASA, statin, lopressor. C/w other oral meds. Code status: Full code Full dose anticoagulation will help with DVT PPx Famotidine for DVT PPx Cardiac diet. Patient's care discussed in detail with his over the phone. All the questions were answered. Attestations Medical Necessity Statement*: Patient for management of severe ARDS secondary COVID-19 pneumonia and congestive heart failure. Time Spent in Patient Care: Greater than 35 minutes (>than 50% of time spent in counselling and/or direct pt care on unit). Coding Level of Care Code Acute Disease Case Manager for Kris Ayalad Diagnoses Hypoxemia R09.02 COVID-19 U07.1 Ischemic cardiomyopathy I25.5 Acute kidney injury N17.9 Hyponatremia E87.1 Atherosclerosis of coronary artery of [place] heart without angina pectoris I25.10 Coronary Disease-Associated Artery/Lesion type: unspecified vessel or lesion type Dyslipidemia E78.5 Benign essential HTN I10
[2021-04-01] MEDS: ascorbic acid 500 mg Tablet PO (10:00)
[2021-04-01] MEDS: zinc gluconate 50 mg Tablet PO (10:01)
[2021-04-01] MEDS: isosorbide mononitrate ER 30 mg Tablet PO (10:01)
[2021-04-01] MEDS: atorvastatin 40 mg Tablet 20 MG PO (10:01)
[2021-04-01] MEDS: benzonatate 100 mg Capsule PO ×3 (10:01→21:39)
[2021-04-01] MEDS: aspirin 81 mg EC Tablet PO (10:02)
[2021-04-01] MEDS: metoprolol succinate ER (24 HR) 50 mg Tablet PO (10:02)
[2021-04-01] MEDS: folic acid 1 mg Tablet PO (10:02)
[2021-04-01] MEDS: thiamine 100 mg Tablet PO (10:02)
[2021-04-01] MEDS: ferrous gluconate 324 mg Tablet PO ×2 (10:03→18:33)
[2021-04-01] MEDS: apixaban 5 mg Tablet PO ×2 (10:03→21:39)
[2021-04-01] MEDS: azithromycin 250 mg Tablet 500 MG PO (10:03)
[2021-04-01] MEDS: FUROsemide 10 mg/mL SDV 4mL 40 MG IVP (10:15)
[2021-04-01] MEDS: dexmedetomidine 400 MCG in sodium chloride 0.9% (100 ml) 100 ML IV (10:19)
[2021-04-01] MEDS: ipratropium-albuterol 3 mL Neb INHALATION ×2 (12:24→19:26)
--- NOTE | 2021-04-01 18:54 | PC.NURSE ---
WRITERS SCAN NOT SAVED. ENTERED MANUALLY.
--- NOTE | 2021-04-01 19:25 | PC.NURSE ---
Addendum entered by Jocelynn Perdue LPN 04/01/21 19:44: Got approval for haldol but pt calmed down before administering it. Original Note: Pt was very agitated about having to keep his nasal HHF on, charge nurse got approval to start pt on dexmedetomidine. His agitation came and went throughout the shift. Pt's o2 stats kept dropping below 80 bc pt would forget to breath through his nose, he got combative when respiratory put bipap on pt to bring his o2 up. While on the bipap pt o2 stats went up to 95-98%. Pt was able to wear bipap for a little over an hour before he became very agitated and combative, taking his tubes off and bipap when informed that respiratory was coming to help him remove bipap pt became very angry. Pt is now on HHF nasal.
[2021-04-01] MEDS: budesonide 0.5 mg/2 mL Neb INHALATION (19:26)
[2021-04-01] MEDS: cefTRIAXone 1,000 MG in sodium chloride 0.9% (plus) 100 ML 200 MG IV (22:01)
[2021-04-02] VITALS (26 sets, daily range): BP systolic 100–153; BP diastolic 43–90; PULSE 46–84; RESP 17–32; TEMP 36.4–37.1; O2SAT 67–97
[2021-04-02] MEDS: famotidine 20 mg/2 mL INJ IVP ×2 (06:27→18:45)
[2021-04-02] MEDS: dexamethasone 4 mg/mL INJ 6 MG IVP (06:27)
[2021-04-02 07:07] LABS: Eosinophils % 0.1 %; Hematocrit 39.2 % (42.0-52.0); Hemoglobin 13.4 g/dL (11.7-16.6); Lymphocytes # 0.5 10^3/uL (0.8-4.8); Lymphocytes % 6.7 %; Mean Corpuscular HGB Conc 34.2 g/dL (30.0-36.0); Mean Corpuscular Hemoglobin 33.7 pg (28.0-34.0); Mean Corpuscular Volume 98.5 fl (80-94); Mean Platelet Volume 10.3 fL (7.4-10.4); Monocytes # 0.2 10^3/uL (0.2-0.9); Monocytes % 3.6 %; Neutrophils # 5.96 10^3/uL (1.8-7.7); Neutrophils % 88.3 %; Nucleated Red Blood Cells % 0 %; Platelet Count 176 10^3/cmm (130-400); Red Blood Count 3.98 10^6/uL (4.1-5.3); Red Cell Distribution Width 11.7 % (12.1-15.1); White Blood Count 6.8 10^3/uL (4.0-10.0)
[2021-04-02 07:43] LABS: Alanine Aminotransferase 27 U/L (0-41); Albumin Level 2.6 g/dL (3.5-5.2); Alkaline Phosphatase 85 IU/L (40-130); Aspartate Amino Transferase 30 U/L (0-40); Blood Urea Nitrogen 25 mg/dL (8-23); Calcium 7.8 mg/dL (8.5-10.5); Carbon Dioxide 24 mmol/L (22-29); Chloride 103 mmol/L (98-107); Glucose 89 mg/dL (65-115); Osmolality Calculated 288 mOsm/kg (285-295); Sodium 137 mmol/L (136-145); Total Bilirubin 0.6 mg/dL (0.15-1.2); Total Protein 5.6 g/dL (6.6-8.7)
[2021-04-02 08:06] LABS: C Reactive Protein 59.1 mg/L (0.0-4.9); NT Pro B Type Natriuretic Pept 978 pg/mL (0-125)
[2021-04-02] MEDS: ipratropium-albuterol 3 mL Neb INHALATION ×2 (08:40→23:21)
[2021-04-02] MEDS: budesonide 0.5 mg/2 mL Neb INHALATION ×2 (08:40→23:21)
--- NOTE | 2021-04-02 09:01 | PC.CHAP ---
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 commercial leasing manager visit [] Patient/Family/Request visit [] Outpatient visit [] Follow-up visit [] Physician referral [] Code/Alert [x] Routine visit [] Staff referral [] Actively dying [x] Patient sleeping [] Family support [] [] Out of room [] Palliative care [] [] Receiving care in room [] Pre-surgical visit [] Trauma [] Long length of stay [] ICU visit [x] Other:2a Relational/Emotional Strength [] Patient feels connected with others/family/visitors/staff [] Distress [] Loneliness/isolation [] Abandonment Spirituality of Patient [] Person of [place] [] Attends Yazdanism of their [place] [] Believes in Prayer [] Reads Bible or Confucianist materials [] There are Spiritual issues to be addressed Tax Map Technician Interventions [x] Prayer [] Active listening [] Non-anxious presence [] Spiritual/emotional support [] Crisis/trauma care [] Spiritual counseling [] Bereavement support [] Provided bereavement packet [] Provided Bible/devotional materials [] Provided toy/stuffed animal, coloring book to patient or family member [] Provided Communion [] Anointing/[place] [] Salvation [x] Completed spiritual assessment [] Other: Impact on Illness or Injury [] Angry [] Fearful [] Anxious [] Often cries [] Exhaustion [] Unable to work [] Unable to attend evangelical [] Unable to walk/stand [] Unable to read [] Unable to drive [] Unable to eat/drink [] Unable to sleep [] Unable to be with family [] Patient intubated [] Other: Summary Time spent with patient
[2021-04-02] MEDS: azithromycin 250 mg Tablet 500 MG PO (09:39)
[2021-04-02] MEDS: thiamine 100 mg Tablet PO ×2 (09:39→12:50)
[2021-04-02] MEDS: zinc gluconate 50 mg Tablet PO (09:39)
[2021-04-02] MEDS: isosorbide mononitrate ER 30 mg Tablet PO (09:40)
[2021-04-02] MEDS: aspirin 81 mg EC Tablet PO (09:40)
[2021-04-02] MEDS: atorvastatin 40 mg Tablet 20 MG PO (09:40)
[2021-04-02] MEDS: ascorbic acid 500 mg Tablet PO (09:40)
[2021-04-02] MEDS: folic acid 1 mg Tablet PO (09:40)
[2021-04-02] MEDS: metoprolol succinate ER (24 HR) 50 mg Tablet PO (09:40)
[2021-04-02] MEDS: ferrous gluconate 324 mg Tablet PO ×2 (09:40→18:45)
[2021-04-02] MEDS: apixaban 5 mg Tablet PO ×2 (09:40→20:43)
[2021-04-02] MEDS: benzonatate 100 mg Capsule PO ×3 (09:40→20:43)
--- NOTE | 2021-04-02 11:28 | P.PN_ITS ---
Subjective Subjective: Interval history: He asks again about going home. Discussed with him his current oxygen situation with requiring 100% on high flow cannula. Discussed with him at home he would not be able to achieve these levels of oxygen. In the high likelihood he may become quite uncomfortable in respiratory distress, respiratory failure, and highly likely cardiopulmonary arrest not before long. He states that he understands. States that he would rather go home even if he passes away because this is no life . He asked for me to reach out to his so that she may discuss with his brother and the rest of his family. Discussed with him that there is no rash and that he may take his time in making the decision. Discussed with him that we will provide care to the extent only that he wishes, but do want him to be aware that returning home would be most likely at this stage a comfort care situation. Alternatively comfort care could be initiated in the hospital. Discussed with his . She was not yet aware of his decisions. States that she has spoken with the family earlier today. States that she will speak with him as well and that they will be deciding as to the way forward. She does mention that he drinks alcohol occasionally almost nightly. Discussed with her and with nursing about CIWA protocol. Although currently does not appear in withdrawal. He got quite tearful during the discussion stating that he will let us know what he and his family come up with during the conversation. I discussed with both him and his spouse that some people have come through the severity of situation he is in and had recovered. Certainly with the amount of oxygen he is requiring the odds may be stacked not in his favor, however, we cannot also exclude chance of recovery. He is, however, quite discouraged by prospects of even staying in the hospital for prolonged amount of time to try and pursue the possible recovery. He is coughing up thick phlegm. He denies headache, nausea vomiting or diarrhea. No chest pain or pressure. Vitals/I&O/Wt Last Vital Signs Temp 97.6 F 04/02/21 07:57 Pulse 60 04/02/21 09:20 Resp 20 H 04/02/21 09:20 BP 100/63 04/02/21 07:57 Pulse Ox 91 04/02/21 09:20 04/01/21 04/02/21 04/02/21 22:59 06:59 14:59 Intake Total 0 / 10.075 146.101 / 156.176 Output Total 2500 / 2500 700 / 3200 Balance -2500 / -2489.925 -553.899 / -3043.824 Weight last 48 hrs Weight 95.436 kg Weight 97.666 kg Physical Exam Const: COMMON NORMALS: no acute distress, patient oriented x3 and alert GENERAL APPEARANCE: cooperative ORIENTATION/CONSCIOUSNESS: Yes awake HENMT: COMMON NORMALS: oropharynx normal Neck/C-Spine: COMMON NORMALS: no JVD Resp: COMMON NORMALS: normal respiratory effort and clear to auscultation bilaterally AUSCULTATION: clear to auscultation bilaterally Cardio: COMMON NORMALS: no JVD, regular rhythm, S1 normal heart sound present, S2 normal heart sound present and No murmurs present (Cardio) RHYTHM: regular rhythm HEART SOUNDS: S1 normal heart sound present and S2 normal heart sound present GI: COMMON NORMALS: Normal to inspection, nondistended, normoactive bowel sounds present, Soft to palpation and non-tender PALPATION: Yes Soft to palpation Extremity: COMMON NORMALS: no joint enlargement and no pedal edema Neuro: COMMON NORMALS: patient oriented x3 and moves all extremities SENSORIUM/ORIENTATION: Yes alert Skin: COMMON NORMALS: no rashes or lesions noted GENERAL SKIN EXAM: no rashes or lesions noted Urinary Catheter Management^: Mullen: Cath Placed During This Visit: yes Reason for Continuing Indwelling Catheter: Other Urinary Catheter Date of Insertion: 03/31/21 Urinary Catheter Time of Insertion: 12:00 Data : 04/02/21 06:00 04/02/21 06:00 Micro: Microbiology 03/27/21 19:00 Blood Culture - Final Blood NO GROWTH AFTER 5 DAYS 03/27/21 19:06 Blood Culture - Final Blood NO GROWTH AFTER 5 DAYS A&P Assessment and plan (1) Hypoxemia: Hypoxic respiratory failure, requiring 100% FiO2. He is quite seriously considering his advanced goals of care, with serious consideration being given to returning home with comfort care. Further discussions pending between him and his and the rest of the family. For now in the meantime we will continue with current treatment for severe COVID-19. Continue remdesivir, Decadron. Continue empiric ceftriaxone, azithromycin. Continue Eliquis. Add guaifenesin due to productive cough with thick sputum to aid expectoration. Status: Acute (2) COVID-19: Status: Acute (3) Ischemic cardiomyopathy: He is -3 L last 24 hours. Hold Lasix for now as he currently does not appear volume overloaded to me. Status: Acute (4) Acute kidney injury: Little bit better, creatinine down to 1. BUN 25. Status: Acute (5) Hyponatremia: Resolved. Status: Acute (6) Atherosclerosis of coronary artery of [place] heart without angina pectoris: Continue cardiac medications. Status: Acute Qualifiers: Coronary Disease-Associated Artery/Lesion type: unspecified vessel or lesion type Qualified Code(s): I25.10 - Atherosclerotic heart disease of [place] coronary artery without angina pectoris (7) Dyslipidemia: Status: Acute (8) Benign essential HTN: Status: Acute Attestations Medical Necessity Statement*: Continue admission for hypoxic respiratory failure with severe COVID-19. Continued goals of care discussion. Coding Level of Care Code Acute Clearing Inspector for [facility] Rhonda Diagnoses Hypoxemia R09.02 COVID-19 U07.1 Ischemic cardiomyopathy I25.5 Acute kidney injury N17.9 Hyponatremia E87.1 Atherosclerosis of coronary artery of [place] heart without angina pectoris I25.10 Coronary Disease-Associated Artery/Lesion type: unspecified vessel or lesion type Dyslipidemia E78.5 Benign essential HTN I10
[2021-04-02] MEDS: guaiFENesin 600 mg Tablet 1200 MG PO ×2 (12:48→18:45)
[2021-04-02] MEDS: multivitamin therapeutic Tablet 1 TAB PO (12:50)
--- NOTE | 2021-04-02 18:04 | PC.RESP ---
RT Shift Note Frequent safety and respiratory rounds continue. Orders completed as indicated. Patient monitored pre and post treatments throughout shift. Patient tolerated treatments appropriately. Condition did not change. Patient and/or players club representative educated on respiratory treatment and medications. Patient and/or players club representative needs reinforcement. Will continue to monitor patient progress.
[2021-04-02] MEDS: LORazepam 2 mg/mL INJ 1 mL IVP ×2 (20:06→22:41)
[2021-04-02] MEDS: remdesivir 100 MG in sodium chloride 0.9% (100 ml) 100 ML IV (21:58)
[2021-04-02 22:01] LABS: ABG PCO2 29.8 mmHg (35-45); ABG PH Result 7.53 (7.35-7.45); Arterial Blood Gas Hematocrit 44.6 % (42-52); Base Excess ABG 2.8 mmol/L (-2.0-2.0); Blood Gas Allen Test Pos; Blood Gas Operator Identificat MONRO; Blood Gas Sample Site Radial, left; Blood Gas Sample Type Arterial; Carboxyhemoglobin 0.6 %THgb (0.4-20.1); HCO3 ABG 24.7 mmol/L (22-26); HGB O2 Sat 87.4 % (95-100); Ionized Calcium Level - ABG 1.2 mmol/L (1.1-1.4); Methemoglobin 0.8 % (0.4-1.5); Oxygen Device NRB; Oxygen Saturation ABG 88.6; PO2 ABG 52.8 mmHg (80.0-100.0); Potassium Level - ABG 4.1 mmol/L (3.5-5.0); Total Hemoglobin 14.5 g/dL (14-18)
[2021-04-02] MEDS: dexmedetomidine 400 MCG in sodium chloride 0.9% (100 ml) 100 ML 5.08 MCG IV (22:01)
[2021-04-02 22:02] LABS: Alveolar-Arterial Oxygen Gradi 80.6 mmHg (5-10)
[2021-04-02] MEDS: cefTRIAXone 1,000 MG in sodium chloride 0.9% (plus) 100 ML 200 MG IV (22:30)
[2021-04-02] MEDS: FUROsemide 10 mg/mL SDV 4mL 40 MG IVP (22:41)
--- NOTE | 2021-04-02 22:44 | XRR_ITS ---
PROCEDURE INFORMATION: Exam: XR Chest Exam date and time: 04/02/2021 10:44 PM Age: 60 years old Clinical indication: Device placement; Ett placement (vent status); Patient HX: Check S/P intubation. Covid +; Additional info: Post-intubation TECHNIQUE: Imaging protocol: XR of the chest. Views: 1 view. COMPARISON: CR XR chest 1V portable [id number] 04/01/2021 5:23 AM FINDINGS: Tubes, catheters and devices: Endotracheal tube tip over the distal trachea, 1 cm proximal to the can. Lungs: Slight interval worsening of moderate to severe bilateral pneumonia. Pleural spaces: Unremarkable. No pleural effusion. No pneumothorax. Heart/Mediastinum: Unremarkable. No cardiomegaly. Bones/joints: Unremarkable. XR/XR chest 1V portable [id number] IMPRESSION: 1. Endotracheal tube tip over the distal trachea, 1 cm proximal to the can. 2. Slight interval worsening of moderate to severe bilateral pneumonia.
[2021-04-02] MEDS: propofol 1,000 MG/100 ML INJ 5.73 MG IV (23:15)
--- NOTE | 2021-04-02 23:17 | P.PNCC_ITS ---
Critical Care Event Note Critical Care Event The high probability of a clinically significant, sudden or life threatening deterioration of the patient's respiratory system(s) required my full and direct attention, intervention and personal management. The critical care time is as shown. This time is in addition to time spent performing any reported procedures but includes the following: [x] Data and vital sign review and interpretation [x] Patient assessment, examination and intervention [x] Documentation [x] Medication orders and management Call with patient having worsening sats on arrival to ICU. ABG done on NRB as patient would not keep HHF on. 7.53/29/52.8. Reviewed chart. Had not had lasix so dose ordered. Has received ativan. Was doing better with family in room for a while with sats up to 88-89 % on NRB. Unfortunately this did not last and sats dropped into and stayed in the 70s despite attempts at HHF + NRB. Given difficulty keeping masks/canula in throughout evening and recurrent episdoes of severe hypoxemia, tachypnea, decision made to proceed with intubation. I had spoken to Dr Gonzalez regarding clinical course today at shift change. Family updated and had time to visit before intubation Critical Care Time Critical Care Time: Code activated: No Critical Care Time (min): 35 Additional information about critical care time: Critical care time is in addition to procedure noted below. Procedures Intubation Time out performed: Yes Sedative: etomidate Mg given: 20 Paralytic: succinylcholine Mg given: 100 Laryngoscope: fiber optic video scope ET tube size: 8 ET tube uncuffed: No Tube secured depth (cm): 25 Tube secured location: lips Tube placement confirmation: visualized tube passing through cords, equal breath sounds bilaterally, no breath sounds over epigastrium and color change noted Patient tolerated procedure: well Intubation complications: none Additional comments: Patient also received some versed with intubation given etoh history. Updated family of successful and rapid intubation. CXR with ETT 2 cm above can. I did attempt to place NGT right nares without success. Some blood noted. 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
[2021-04-02] MEDS: midazolam 1 mg/mL INJ 2 mL 5 MG IVP (23:27)
[2021-04-02] MEDS: succinylcholine 20 mg/mL SDV 10mL IVP (23:28)
[2021-04-02] MEDS: fentaNYL 50 mcg/mL INJ 2mL IVP (23:35)
[2021-04-03] VITALS (83 sets, daily range): BP systolic 76–143; BP diastolic 53–88; PULSE 49–87; RESP 14–32; TEMP 36.6–37.1; O2SAT 87–99
[2021-04-03 00:56] LABS: ABG PCO2 36.8 mmHg (35-45); ABG PH Result 7.43 (7.35-7.45); Arterial Blood Gas Hematocrit 43.7 % (42-52); Base Excess ABG 0.1 mmol/L (-2.0-2.0); Blood Gas Allen Test Pos; Blood Gas Operator Identificat MONRO; Blood Gas Sample Site Radial, right; Blood Gas Sample Type Arterial; HCO3 ABG 24.2 mmol/L (22-26); Oxygen Device VENT; PO2 ABG 94.7 mmHg (80.0-100.0)
--- NOTE | 2021-04-03 01:07 | PC.NURSE ---
Dr. Ferrell at bedside for intubation. Patient Sat 71% on 100% NRB RR 35. Patient intubated with #8 ETT 25 at the teeth. For sedation patient received 2 mg versed, 20 mg of Etomidate, and 100 mg of succinylcholine. Patient currently on 0.1 mcg/kg/hr of Precedex and started patient on 10 mcg/kg/min of Propofol. Will continue to monitor.
[2021-04-03] MEDS: ipratropium-albuterol 3 mL Neb INHALATION ×9 (03:24→23:44)
[2021-04-03] MEDS: fentaNYL 50 mcg/mL INJ 2mL IVP ×2 (03:49→06:14)
[2021-04-03] MEDS: dexmedetomidine 400 MCG in sodium chloride 0.9% (100 ml) 100 ML 7.44 MCG IV (04:55)
[2021-04-03] MEDS: propofol 1,000 MG/100 ML INJ 20.04 MG IV ×2 (04:55→09:24)
[2021-04-03 05:31] LABS: Basophils % 0.2 %; Eosinophils % 0.3 %; Hematocrit 38.3 % (42.0-52.0); Hemoglobin 12.7 g/dL (11.7-16.6); Lymphocytes # 0.3 10^3/uL (0.8-4.8); Lymphocytes % 5.5 %; Mean Corpuscular HGB Conc 33.2 g/dL (30.0-36.0); Mean Corpuscular Hemoglobin 33.8 pg (28.0-34.0); Mean Corpuscular Volume 101.9 fl (80-94); Mean Platelet Volume 10.3 fL (7.4-10.4); Monocytes # 0.1 10^3/uL (0.2-0.9); Neutrophils # 5.38 10^3/uL (1.8-7.7); Nucleated Red Blood Cells % 0 %; Platelet Count 301 10^3/cmm (130-400); Red Blood Count 3.76 10^6/uL (4.1-5.3); Red Cell Distribution Width 11.9 % (12.1-15.1)
[2021-04-03 05:43] LABS: D Dimer 2.88 ug/mIFEU (0-0.59)
[2021-04-03 05:58] LABS: Slide Review Slide Review Perform
[2021-04-03] MEDS: famotidine 20 mg/2 mL INJ IVP ×2 (05:58→18:36)
[2021-04-03 06:00] LABS: Alanine Aminotransferase 26 U/L (0-41); Albumin Level 2.3 g/dL (3.5-5.2); Alkaline Phosphatase 83 IU/L (40-130); Anion Gap 16.3 (5-19); Aspartate Amino Transferase 42 U/L (0-40); Blood Urea Nitrogen 25 mg/dL (8-23); C Reactive Protein 91.9 mg/L (0.0-4.9); Calcium 7.1 mg/dL (8.5-10.5); Carbon Dioxide 20 mmol/L (22-29); Chloride 106 mmol/L (98-107); Globulin 3.2 g/dL (1.3-4.6); Glomerular Filtration Rate 85.8 mL/min (90-130); Glucose 103 mg/dL (65-115); NT Pro B Type Natriuretic Pept 1027 pg/mL (0-125); Osmolality Calculated 293 mOsm/kg (285-295); Potassium 3.3 mmol/L (3.5-5.1); Sodium 139 mmol/L (136-145); Total Bilirubin 1.5 mg/dL (0.15-1.2); Total Protein 5.5 g/dL (6.6-8.7)
[2021-04-03] MEDS: dexamethasone 4 mg/mL INJ 6 MG IVP (06:00)
--- NOTE | 2021-04-03 06:00 | XRR_ITS ---
PROCEDURE INFORMATION: Exam: XR Chest Exam date and time: 04/03/2021 6:00 AM Age: 60 years old Clinical indication: Condition or disease; Lung condition and disease; Patient HX: F/u covid. Intubated TECHNIQUE: Imaging protocol: XR of the chest. Views: 1 view. Total images: 1 COMPARISON: CR (CHEST, ) 04/02/2021 10:59 PM FINDINGS: Tubes, catheters and devices: Nasogastric tube has its proximal port at the GE junction, recommend advancement by 7-10 cm. An endotracheal tube is present, terminating above the can by 6 cm. Lungs: Bilateral pulmonary opacities have improved from the prior exam. Pleural spaces: Unremarkable. No pleural effusion. No pneumothorax. Heart/Mediastinum: Heart size is stable when compared to the prior exam. Bones/joints: Osseous structures are unchanged from the prior exam. XR/XR chest 1V portable [id number] IMPRESSION: 1. Nasogastric tube has its proximal port at the GE junction, recommend advancement by 7-10 cm. 2. An endotracheal tube is present, terminating above the can by 6 cm. 3. Bilateral pulmonary opacities have improved from the prior exam.
[2021-04-03 06:12] LABS: Erythrocyte Sedimentation Rate 57 mm/hr (0-10)
[2021-04-03] MEDS: budesonide 0.5 mg/2 mL Neb INHALATION ×2 (07:41→20:22)
--- NOTE | 2021-04-03 09:34 | XRR_ITS ---
PROCEDURE INFORMATION: Exam: XR Chest Exam date and time: 04/03/2021 9:34 AM Age: 60 years old Clinical indication: Device placement; Other: Og tube; Additional info: Og tube placement TECHNIQUE: Imaging protocol: XR of the chest. Views: 1 view. Total images: 1 COMPARISON: CR XR chest 1V portable [id number] 04/03/2021 5:45 AM FINDINGS: Tubes, catheters and devices: Tubes and catheters are unchanged from the prior exam. Lungs: Bilateral pulmonary opacities are again noted and appear unchanged. Pleural spaces: Unremarkable. No pleural effusion. No pneumothorax. Heart/Mediastinum: Heart size is stable when compared to the prior exam. Bones/joints: Osseous structures are unchanged from the prior exam. XR/XR chest 1V portable [id number] IMPRESSION: 1. Tubes and catheters are unchanged from the prior exam. 2. Bilateral pulmonary opacities are again noted and appear unchanged.
--- NOTE | 2021-04-03 09:38 | PC.CHAP ---
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 firebreak cutter visit [] Patient/Family/Request visit [] Outpatient visit [] Follow-up visit [] Physician referral [] Code/Alert [x] Routine visit [] Staff referral [] Actively dying [] Patient sleeping [] Family support [] [] Out of room [] Palliative care [] [] Receiving care in room [] Pre-surgical visit [] Trauma [] Long length of stay [x] ICU visit [x] Other: transfered from ....[facility] Relational/Emotional Strength [] Patient feels connected with others/family/visitors/staff [] Distress [] Loneliness/isolation [] Abandonment Spirituality of Patient [] Person of Dacia [] Attends Cheondoism of their [place] [] Believes in Prayer [] Reads Bible or Protestant materials [] There are Spiritual issues to be addressed 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 Interventions [x] Prayer [] Active listening [] Non-anxious presence [] Spiritual/emotional support [] Crisis/trauma care [] Spiritual counseling [] Bereavement support [] Provided bereavement packet [] Provided Bible/devotional materials [] Provided toy/stuffed animal, coloring book to patient or family member [] Provided Communion [] Anointing/[place] [] Salvation [x] Completed spiritual assessment [] Other: Impact on Illness or Injury [] Angry [] Fearful [] Anxious [] Often cries [] Exhaustion [] Unable to work [] Unable to attend confucianist [] Unable to walk/stand [] Unable to read [] Unable to drive [] Unable to eat/drink [] Unable to sleep [] Unable to be with family [] Patient intubated [] Other: Summary Time spent with patient
--- NOTE | 2021-04-03 09:49 | PC.NURSE ---
Patient sedated and on the ventilator.
[2021-04-03] MEDS: PHENobarbital 130 mg/mL SDV 1 mL IV (12:44)
[2021-04-03] MEDS: sodium chloride 0.9% 500 ML XX (12:45)
--- NOTE | 2021-04-03 13:57 | XR_ITS ---
WS: [id number] PORTABLE CHEST HISTORY: Central Line Placement COMPARISON: 04/03/2021 at 9:55 AM. Interval placement of a LEFT central line with tip in the distal SVC. Nasogastric tube is present with tip in the stomach. There is redundant catheter projecting over the upper cervical spine. I believe this is a coiled NG tube which has been previously discussed with the patient's nurse. Diffuse interstitial thickening and haziness over both lungs. No pleural effusion or pneumothorax. Cardiac size: Normal. Mediastinum/Aorta: Normal mediastinum. No osseous abnormality seen. XR/XR chest 1V portable [id number] IMPRESSION: 1. LEFT central line in good position. No complications. 2. Again noted is the coiled catheter projecting over the cervical esophagus. I suspect this may be a coiled nasogastric tube within the esophagus. This findi ng was previously discussed with the patient's nurse several hours ago. At that time I recommended an AP neck radiograph to confirm this finding. Additional i maging at that time was declined by the patient's caregivers. This could be ext ernal to the patient but needs to be confirmed.
[2021-04-03] MEDS: potassium chloride premix 100 ML 25 MEQ IV (15:24)
[2021-04-03] MEDS: propofol 1,000 MG/100 ML INJ 14.32 MG IV ×2 (15:52→22:58)
[2021-04-03] MEDS: cisatracurium 100 MG in sodium chloride 0.9% 50 ML IV (15:54)
--- NOTE | 2021-04-03 17:41 | P.CONIM_ITS ---
Providers/Reason For Consult Consulting Physician/Specialty*: Mick Batista MD/ Pulmonary Crtical Care Reason for Consult*: Acute hypoxic respiratory failure secondary to ARDS due to COVID-19 pneumonia requiring mechanical ventilation for respiratory support Attending Physician: Frederick Gonzalez Primary Care Provider: Taina Zarate DO History of Present Illness History of Present Illness Christopher Reinoso is a 60 year old male male with PMH of CAD, ischemic cardiomyopathy with EF of 45%, HTN, HLD came to ER 03/27/2021 after being referred to the ER from infusion center where he had gone for monoclonal infusion. Unfortunately because he was saturating in 85-87% on RA he could not qualify for infusion. As per the patient, he has been having subjective feel of fever(s), chills, non- productive cough, fatigue, body aches, headache, loss of sense of smell and/or taste, throat pain, nasal congestion, nausea, vomiting and diarrhea since 03/20/2021 and he had exposure to COVID 19 and tested positive for COVID 19 on 03/26/2021.In ER he has been needing upto 4 L of oxygen supplementation to maintain his saturation over 90% and was admitted to to Covid unit 2A. His O2 requirements gradually increased and patient kept getting frustrated as he was not improving and wanted to go home. Yesterday 04/02/2021 patient was moved to ICU with impending respiratory failure and saturations in the seventies-he was intubated overnight and connected to ventilator. Pulmonary critical care consulted due to acute hypoxic respiratory failure secondary to ARDS due to COVID-19 pneumonia Patient seen at bedside today multiple times Central line and left radial art line were placed today afternoon He is intubated and connected to ventilator, sedated with Versed and propofol, started on fentanyl -Monitor showed he was persistently bradycardic which improved once his Versed p.o. was decreased -Plan is to paralyze and prone him -Labs and imaging reviewed Review of Systems General: Reports: ROS unobtainable due to endotracheal tube, ROS unobtainable due to medical condition and ROS unobtainable due to mental status Meds/Allergies Home Medications and Allergies Home Medications Medication Instructions Recorded Confirmed Last Taken Type atorvastatin 20 mg tablet 20 mg PO DAILY 10/30/20 03/27/21 12/21/20 History metoprolol succinate 50 mg 50 mg PO DAILY 10/30/20 03/27/21 12/21/20 History tablet,extended release 24 hr nitroglycerin 0.4 mg sublingual 0.4 mg SUBLINGUAL Q5M PRN 10/30/20 03/27/21 12/21/20 History tablet isosorbide mononitrate 30 mg 30 mg PO DAILY 30 Days #30 tab 12/28/20 03/27/21 Unknown Rx tablet,extended release 24 hr lisinopril 40 mg tablet 40 mg PO DAILY #30 tab 02/12/21 03/27/21 Unknown Rx aspirin [Aspir-81] 81 mg PO DAILY 03/27/21 03/27/21 Unknown History Allergies Allergy/AdvReac Type Severity Reaction Status Date / Time No Known Allergies Allergy Verified 03/26/21 10:34 Current Medications Current Medications Generic Name Dose Route Start Last Admin Trade Name Freq PRN Reason Stop Dose Admin Acetaminophen 650 mg 03/28/21 00:07 03/31/21 21:43 Acetaminophen 325 Mg Tablet PO 650 mg Q6H PRN Administration Mild/Mod Pain Or Temp >/= 101 Albuterol/Ipratropium 3 ml 04/01/21 12:00 04/03/21 16:22 Ipratropium-Albuterol 3 Ml Neb INHALATION 3 ml Q4H.RESPIRATORY [facility] Administration Apixaban 5 mg 03/27/21 21:00 04/03/21 15:10 Apixaban 5 Mg Tablet PO Not Given BID@0900,2100 [facility] Ascorbic Acid 500 mg 03/29/21 09:00 04/03/21 15:11 Ascorbic Acid 500 Mg Tablet PO Not Given DAILY [facility] Aspirin 81 mg 03/28/21 09:00 04/03/21 15:11 Aspirin 81 Mg Ec Tablet PO Not Given DAILY [facility] Atorvastatin Calcium 20 mg 03/28/21 09:00 04/03/21 15:11 Atorvastatin 40 Mg Tablet PO Not Given DAILY [facility] Azithromycin 500 mg 03/28/21 09:00 04/03/21 15:15 Azithromycin 250 Mg Tablet PO Not Given DAILY [facility] Protocol Benzonatate 100 mg 03/27/21 21:00 04/03/21 15:24 Benzonatate 100 Mg Capsule PO Not Given TID [facility] Budesonide 0.5 mg 04/01/21 20:00 04/03/21 07:41 Budesonide 0.5 Mg/2 Ml Neb INHALATION 0.5 mg BID.RESPIRATORY [facility] Administration Dexamethasone 6 mg 03/28/21 07:00 04/03/21 06:00 Dexamethasone 4 Mg/Ml Inj IVP 6 mg Q24H [facility] Administration Famotidine 20 mg 03/27/21 18:48 04/03/21 05:58 Famotidine 20 Mg/2 Ml Inj IVP 20 mg Q12H [facility] Administration Fentanyl 50 mcg 04/02/21 23:27 04/03/21 06:14 Fentanyl 50 Mcg/Ml Inj 2ml IVP 50 mcg Q2H PRN Administration SEVERE PAIN Ferrous Gluconate 324 mg 03/28/21 08:00 04/03/21 10:41 Ferrous Gluconate 324 Mg Tablet PO Not Given BIDWM [facility] Folic Acid 1 mg 04/03/21 09:00 04/03/21 15:15 Folic Acid 1 Mg Tablet PO Not Given DAILY [facility] Guaifenesin 1,200 mg 04/02/21 11:45 04/03/21 15:15 Guaifenesin 600 Mg Tablet PO Not Given BID [facility] Ceftriaxone Sodium 1,000 mg/ 100 mls @ 200 mls/hr 03/29/21 22:30 04/02/21 23:00 Sodium Chloride IV Infused Q24H [facility] Infusion Protocol Remdesivir 100 mg/ Sodium 100 mls @ 100 mls/hr 04/02/21 20:30 04/02/21 22:58 Chloride IV 04/06/21 18:59 Infused DAILY@1800 [facility] Infusion Propofol 1,000 mg in 100 mls @ 0 mls/hr 04/02/21 22:45 04/03/21 15:52 Diprivan IV 25 mcg/kg/min .Q0M [facility] 14.32 mls/hr Administration Protocol Per Protocol Norepinephrine Bitartrate 4 mg 254 mls @ 0 mls/hr 04/02/21 22:45 04/03/21 12:50 / Dextrose IV 2 mcg/min .Q0M PRN 7.62 mls/hr MAP <65 Titration Protocol Per Protocol Midazolam HCl 100 mg/ Sodium 100 mls @ 0 mls/hr 04/03/21 00:15 04/03/21 14:40 Chloride IV 3 mg/hr .Q0M [facility] 3 mls/hr Titration Protocol Per Protocol Cisatracurium Besylate 100 mg/ 100 mls @ 0 mls/hr 04/03/21 11:45 04/03/21 15:54 Sodium Chloride IV 0.3 mcg/kg/min .Q0M [facility] 1.51 mls/hr Administration Protocol Per Protocol Sodium Chloride 500 mls @ 3 mls/hr 04/03/21 12:30 04/03/21 12:45 Sodium Chloride 0.9% XX 3 mls/hr .Q24H [facility] Administration Fentanyl 1,000 mcg/ Sodium 100 mls @ 0 mls/hr 04/03/21 12:45 04/03/21 13:30 Chloride IV 50 mcg/hr .Q0M [facility] 5 mls/hr Titration Protocol Per Protocol Potassium Chloride 100 mls @ 25 mls/hr 04/03/21 13:58 04/03/21 15:24 K-Javid IV 04/03/21 17:57 25 mls/hr ONCE ONE Administration Isosorbide Mononitrate 30 mg 03/28/21 09:00 04/03/21 10:41 Isosorbide Mononitrate Er 30 Mg Tablet PO Not Given DAILY [facility] Metoprolol Succinate 50 mg 03/28/21 09:00 04/03/21 10:41 Metoprolol Succinate Er (24 Hr) 50 Mg Tablet PO Not Given DAILY [facility] Multivitamins Therapeutic 1 tab 04/02/21 12:00 04/03/21 15:15 Multivitamin Therapeutic Tablet PO Not Given DAILY [facility] Thiamine Mononitrate 100 mg 04/02/21 11:30 04/03/21 15:16 Thiamine 100 Mg Tablet PO Not Given DAILY [facility] Zinc Gluconate 50 mg 03/28/21 09:00 04/03/21 15:16 Zinc Gluconate 50 Mg Tablet PO Not Given DAILY [facility] PFSH Acute PFSH: Medical History Atherosclerosis of [place] coronary artery of [place] heart with stable angina pectoris BPH (benign prostatic hyperplasia) Dyslipidemia (high LDL; low HDL) Essential hypertension History of hypertension Hx of chest pain Surgical History History of PTCA Family History Brother CAD (coronary artery disease) Lung disease Father CAD (coronary artery disease) Cancer Mother Diabetes Lung disease Denies family history of Clotting disorder Dementia Chronic kidney disease (CKD) Suicide Anesthesia complication Bleeding disorder Stroke Social History Smoking and tobacco status: former smoker Alcohol intake: current Alcohol intake frequency: 3 or more drinks per day Alcohol type: beer Housing: House Vitals/I&O/Wt Last Vital Signs Temp 98.7 F 04/03/21 11:00 Pulse 69 04/03/21 16:00 Resp 22 H 04/03/21 16:27 BP 96/69 04/03/21 16:00 Pulse Ox 93 04/03/21 16:27 04/03/21 04/03/21 04/03/21 06:59 14:59 22:59 Intake Total 227.563 / 809.299 433.332 / 433.332 Output Total 300 / 800 300 / 300 Balance -72.437 / 9.299 133.332 / 133.332 Weight last 48 hrs Weight 185 lb 3.013 oz Weight 185 lb 3.013 oz Weight 210 lb 6.4 oz Physical Exam Narrative: EXAM NARRATIVE: PHYSICAL EXAM: General: lying in bed, sedated and intubated. HEENT:NCAT, PERRLA, EOMI Neck: Prominent neck swelling noted just left to midline and felt as broken cartilage Lungs: Bilateral diffuse crackles Heart: s1/s2, RRR Abd: soft, NT, ND, BS + Normoactive Extremities: No edema SENIOR NET APPLICATION DEVELOPER: sedated and limited SENIOR NET APPLICATION DEVELOPER exam possible. SKIN: no rash LDA: # CVC: Left internal jugular vein 04/03/2021 # A line: Right radial arterial line 04/03/2021 Urinary Catheter Management^: Mullne: Cath Placed During This Visit: yes Reason for Continuing Indwelling Catheter: Accurate Measurement of Urinary Output in Critically Ill Patients Urinary Catheter Date of Insertion: 04/02/21 Urinary Catheter Time of Insertion: 20:00 Data Labs: Other Labs: Laboratory Results WBC 6.8 10^3/uL (4.0- 10.0) 04/03/21 19:02 Corrected WBC Cancelled 03/27/21 15:45 RBC 4.00 10^6/uL (4.1 -5.3) L 04/03/21 19:02 Hgb 13.8 g/dL (11.7-1 6.6) 04/03/21 19:02 Hct 39.9 % (42.0-52.0 ) L 04/03/21 19:02 MCV 99.8 fl (80-94) H 04/03/21 19:02 MCH 34.5 pg (28.0-34. 0) H 04/03/21 19:02 MCHC 34.6 g/dL (30.0-3 6.0) 04/03/21 19:02 RDW 12.0 % (12.1-15.1 ) L 04/03/21 19:02 Plt Count 331 10^3/cmm (130 -400) 04/03/21 19:02 MPV 10.0 fL (7.4-10.4 ) 04/03/21 19:02 Gran % Cancelled 03/27/21 15:45 Neut % (Auto) 94.2 % 04/03/21 19:02 Lymph % (Auto) 1.3 % 04/03/21 19:02 [place] % (Auto) 3.5 % 04/03/21 19:02 Eos % (Auto) 0.0 % 04/03/21 19:02 Baso % (Auto) 0.1 % 04/03/21 19:02 Neut # (Auto) 6.37 10^3/uL (1.8 -7.7) 04/03/21 19:02 Lymph # (Auto) 0.1 10^3/uL (0.8- 4.8) L 04/03/21 19:02 [place] # (Auto) 0.2 10^3/uL (0.2- 0.9) 04/03/21 19:02 Eos # (Auto) 0.0 10^3/uL (0.0- 0.8) 04/03/21 19:02 Baso # (Auto) 0.0 10^3/uL (0.0- 0.1) 04/03/21 19:02 Absolute Gran (aut o) Cancelled 03/27/21 15:45 Nucleated RBC % (a uto) 0 % 04/03/21 19: Nucleated RBCs # 0.0 /100WBC 04/03/21 19:02 ESR 57 mm/hr (0-10) H 04/03/21 04:45 D-Dimer 2.88 ug/mIFEU (0- 0.59) H 04/03/21 04:45 Specimen Type Arterial 04/02/21 21:49 Sample Site Radial, left 04/02/21 21:49 ABG pH 7.53 (7.35-7.45) H 04/02/21 21:49 ABG pCO2 29.8 mmHg (35-45) L 04/02/21 21:49 ABG pO2 52.8 mmHg (80.0-1 00.0) L 04/02/21 21:49 ABG HCO3 24.7 mmol/L (22-2 6) 04/02/21 21:49 ABG O2 Saturation 88.6 04/02/21 21:49 ABG Base Excess 2.8 mmol/L (-2.0- 2.0) H 04/02/21 21:49 Hoang Test Pos 04/02/21 21:49 A-a O2 Gradient 80.6 mmHg (5-10) H 04/02/21 21:49 Hematocrit 44.6 % (42-52) 04/02/21 21:49 Hgb O2 Saturation 87.4 % (95-100) L 04/02/21 21:49 Carboxyhemoglobin 0.6 %THgb (0.4-20 .1) 04/02/21 21:49 Methemoglobin 0.8 % (0.4-1.5) 04/02/21 21:49 Total Hemoglobin 14.5 g/dL (14-18) 04/02/21 21:49 Sodium 135.0 mmol/L (131 -143) 04/02/21 21:49 Potassium 4.1 mmol/L (3.5-5 .0) 04/02/21 21:49 Glucose 116.0 mg/dL (70-1 15) H 04/02/21 21:49 Ionized Calcium 1.2 mmol/L (1.1-1 .4) 04/02/21 21:49 O2 Delivery Device Nrb 04/02/21 21:49 O2 Liters/Min 15.0 % 04/02/21 21:49 FiO2 100.0 % 04/02/21 21:49 Tidal Volume 0.50 04/02/21 00:43 PEEP 10.0 cmH20 04/02/21 00:43 Automobile Inspector ID [place] 04/02/21 21:49 Sodium 139 mmol/L (136-1 45) 04/03/21 04:45 Potassium 3.3 mmol/L (3.5-5 .1) L 04/03/21 04:45 Chloride 106 mmol/L (98-10 7) 04/03/21 04:45 Carbon Dioxide 20 mmol/L (22-29) L 04/03/21 04:45 Anion Gap 16.3 (5-19) 04/03/21 04:45 BUN 25 mg/dL (8-23) H 04/03/21 04:45 Creatinine 0.9 mg/dL (0.7-1. 2) 04/03/21 04:45 GFR Calculation 85.8 mL/min (90-1 30) L 04/03/21 04:45 Glucose 103 mg/dL (65-115 ) 04/03/21 04:45 Estimat Average Gl ucose 123 03/28/21 05:50 Hemoglobin A1c 5.9 % (4.0-6.0) 03/28/21 05:50 Calculated Osmolal ity 293 mOsm/kg (285- 295) 04/03/21 04:45 Lactic Acid 1.8 mmol/L (0.5-2 .2) 03/27/21 15:45 Calcium 7.1 mg/dL (8.5-10 .5) L 04/03/21 04:45 Phosphorus 3.9 mg/dL (2.5-4. 5) 03/28/21 05:50 Magnesium 2.3 mg/dL (1.7-2. 3) 03/28/21 05:50 Iron 32 ug/dL (59-158) L 03/27/21 19:06 TIBC 190 mcg/dl 03/27/21 19:06 % Saturation 16.8 % (20-50) L 03/27/21 19:06 Unsat Iron Binding 158 ug/dL (112-34 7) 03/27/21 19:06 Ferritin 2350 ng/mL (30-40 0) H 03/30/21 05:23 Total Bilirubin 1.5 mg/dL (0.15-1 .2) H 04/03/21 04:45 AST 42 U/L (0-40) H 04/03/21 04:45 ALT 26 U/L (0-41) 04/03/21 04:45 Alkaline Phosphata se 83 IU/L (40-130) 04/03/21 04:45 Creatine Kinase 100 U/L (39-308) 03/30/21 05:23 Troponin T Baselin e 12 ng/L (0-15) 03/27/21 16:21 Troponin T 120 Min morongo 12.00 ng/L (0-15) 03/27/21 18:24 Delta Troponin T 0 ABS# (0-10) 03/27/21 18:24 C-Reactive Protein 91.9 mg/L (0.0-4. 9) H 04/03/21 04:45 C-Reactive Protein Cancelled 04/03/21 04:45 NT-Pro-B Natriuret Pep 1027 pg/mL (0-125 ) H 04/03/21 04:45 NT-Pro-B Natriuret Pep Cancelled 04/03/21 04:45 Total Protein 5.5 g/dL (6.6-8.7 ) L 04/03/21 04:45 Albumin 2.3 g/dL (3.5-5.2 ) L 04/03/21 04:45 Globulin 3.2 g/dL (1.3-4.6 ) 04/03/21 04:45 Triglycerides 75 mg/dL (0-150) 03/28/21 05:50 Cholesterol 115 mg/dL (0-200) 03/28/21 05:50 LDL Cholesterol, C alc 67 mg/dL (50-129) 03/28/21 05:50 Total VLDL Cholest lilli 15 mg/dL (0-30) 03/28/21 05:50 HDL Cholesterol 33 mg/dL (60-100) L 03/28/21 05:50 Cholesterol/HDL Ra estefania 3.48 mg/dL (1.0-5 .00) 03/28/21 05:50 Procalcitonin 0.10 ng/mL (0-0.5 ) 03/31/21 04:18 TSH 0.89 uIU/mL (0.27 -4.20) 03/27/21 19:06 Urine Color Yellow (Yellow) 03/28/21 03:15 Urine Appearance Sl hazy (CLEAR) 03/28/21 03:15 Urine pH 5 (5-7) 03/28/21 03:15 Ur Specific Gravit y 1.020 (1.005-1.0 30) 03/28/21 03:15 Urine Protein 3+ (Negative) H 03/28/21 03:15 Urine Glucose (UA) Norm (Normal) 03/28/21 03:15 Urine Ketones Negative (Negati ve) 03/28/21 03:15 Urine Blood 3+ (Negative) H 03/28/21 03:15 Urine Nitrate Negative (Negati ve) 03/28/21 03:15 Urine Bilirubin Neg (Negative) 03/28/21 03:15 Urine Urobilinogen Norm mg/dL (Negat clair) 03/28/21 03:15 Ur Leukocyte Amanda ase Negative (Negati ve) 03/28/21 03:15 Urine RBC 0-4 /hpf (0-2) H 03/28/21 03:15 Urine WBC 0-4 /hpf (0-5) H 03/28/21 03:15 Ur Squamous Epith Cells 0-4 /hpf (0-5) H 03/28/21 03:15 Ur Renal Epithelia l Cell 0 /hpf 03/28/21 03:15 Calcium Oxalate Cr ystal 0-4 /hpf H 03/28/21 03:15 Amorphous Sediment 3+ /hpf 03/28/21 03:15 Urine Bacteria Trace /hpf (NONE) 03/28/21 03:15 Coarse Granular Ca sts 0-4 /lpf H 03/28/21 03:15 Ur Random Sodium 14 mmol/L 03/28/21 03:15 Ur Random Potassiu m 62 mmol/L 03/28/21 03:15 Ur Random Chloride 12 mmol/L 03/28/21 03:15 Urine Creatinine 160 mg/dL (39-259 ) 03/28/21 03:15 Impressions Chest CTA 03/28/21 00:03 IMPRESSION: 1. No pulmonary embolism. 2. Hazy bilateral pulmonary opacities which are consistent with COVID-19. 3. Small hiatal hernia. Radiation Dose CTDIVOL = (mGy): DLP = 597.74 (mGy-cm) Chest X-Ray 04/03/21 13:57 IMPRESSION: 1. LEFT central line in good position. No complications. 2. Again noted is the coiled catheter projecting over the cervical esophagus. I suspect this may be a coiled nasogastric tube within the esophagus. This finding was previously discussed with the patient's nurse several hours ago. At that time I recommended an AP neck radiograph to confirm this finding. Additional imaging at that time was declined by the patient's caregivers. This could be external to the patient but needs to be confirmed. Head/Neck Ultrasound 04/03/21 17:42 IMPRESSION: Indeterminate left neck mass measuring nearly 3 cm in size. This does not appear to originate from the thyroid. Further evaluation with CT is recommended. Soft Tissue Neck X-Ray 04/03/21 17:42 IMPRESSION: Limited evaluation of left neck mass due to modality and overlying medical equipment. For further evaluation, would recommend CT of the neck. Micro: Micro: Microbiology 04/02/21 23:50 Gram Stain - Final Sputum - Endotrac heal Wash A&P Assessment and plan (1) Acute hypoxemic respiratory failure due to severe acute respiratory syndrome coronavirus 2 (SARS-CoV-2) disease: Status: Acute (2) Acute kidney injury: Status: Acute (3) Hyponatremia: Status: Acute (4) COVID-19: Status: Acute (5) Ischemic cardiomyopathy: Status: Acute (6) Benign essential HTN: Status: Acute #Acute hypoxic respiratory failure secondary to ARDS due to COVID-19 pneumonia #Concern for alcohol withdrawal -as patient takes alcohol every night -Symptoms started 03/20/2021 -Test + 03/26/2021, CT 03/28/2020 were negative for pulmonary embolism -Intubated 04/02/2021-currently on CMV -Sedated with Versed 2 mg/hour, fentanyl 25 MCG/hour, propofol 20 MCG/hour -Patient on Versed and also given 1 dose of phenobarbital 130 MCG -Plan is to paralyze in prone today -DuoNeb every 4 scheduled, Pulmicort 0.5 twice daily scheduled -Dexamethasone 6 mg daily started 03/28/2021 -Completed remdesivir 5-day course-continuing extended 5 more days -On Rocephin and azithromycin for empiric coverage -So far bacterial antigens, MRSA in nares, Legionella urine antigen, sputum cu lture, blood cultures-all negative; TTE Pending -CRP 91 today -High risk for PE due to multiple comorbidities-Eliquis full dose anticoagulation #Ischemic cardiomyopathy - 12/22/2020 stress test-large area of old myocardial infarction versus scarring -12/22/2020 echo-normal LV cavity size with EF estimated 45% -Aspirin 81/Imdur 30/metoprolol 50/atorvastatin 20 -Keep net negative to even -Lasix as needed # Hypokalemia 3.3 -Supplemented-monitor #Deranged LFTs likely secondary to COVID-19 pneumonia -Monitor LFTs #Neck swelling -Soft tissue neck x-ray limited evaluation of left neck mass due to modality and overlying medical equipment -Solid-appearing left neck mass measuring 2.9 x 2.7 cm of unclear origin, does not appear to originate from the thyroid. Further evaluation with CT is recommended Glucose well controlled# #GI prophylaxis famotidine #DVT prophylaxis Eliquis 5 mg p.o. twice daily #Full code #Family updated #Prognosis poor #Patient needs tube feeding-unfortunately NG tube could not be passed as it kept requiring in patient's pharynx Recommendations conveyed to hospitalist, RN, RT taking care of the patient Consult Attestations Medical Necessity Statement: Acute hypoxic respiratory failure secondary to ARDS due to COVID-19 pneumonia-intubated and currently connected to mechanical ventilator for respiratory support Time Spent in Patient Care: Greater than 35 minutes (>than 50% of time spent in counselling and/or direct pt care on unit) . Critical Care Time: The high probability of a clinically significant, sudden or life threatening deterioration of the patient's [ respiratory, cardiac] system(s) required my full and direct attention, intervention and personal management. The critical care time is as shown. 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
--- NOTE | 2021-04-03 17:41 | PM.ACPR ---
Procedure/Consent Time out: Time Out Performed: Yes Consent: Consent for Procedure: Consent obtained from other (indicate) (), Risks & Benefits reviewed and Agrees to proceed with procedure Procedure Narrative: Procedure time:1400 Procedure: Left Internal Jugular Central venous access placement Indication: Vascular access for multiple medications sedatives, paralytics and pressors Environmental Engineer Scientist(s): Mick Catheriner Consent: Emergent Yes Time out called. Rombauer precautions applied. Site: Left internal jugular vein Catheter: 7 Fr, 20 cm, Triple Lumen Sutured at: 20 cm Anesthesia: 5 cc 1% lidocaine without epinephrine Description: Area prepped with chlorhexidine and draped in a universal sterile manner. The vessel anatomy and patency was examined by ultrasound probe which was covered with sterile probe cover. The needle was inserted into the vessel under ultrasound guidance, after venous blood aspirated the guidewire was inserted through the needle and kept in situ while the needle was removed. Placement of guidewire in the vein and in relation to the adjacent artery was verified by ultrasound. Catheter was then advanced over the guidewire after dilation and guidewire successfully removed.The catheter was sutured to the skin and sterile dressing with chlorhexidine patch placed. Number of attempts: 1 Dilator applied: Yes, number of Dilations: 1 Placement Verified by: Blood draw from all ports and Ultrasound exam and Chest Xray EBL: 10 cc Complications: None Ultrasound guidance used: Yes Acute Procedures Epistaxis Control: Time out performed: Yes
--- NOTE | 2021-04-03 17:41 | PM.ACPR ---
Procedure/Consent Time out: Time Out Performed: Yes Consent: Consent for Procedure: Consent obtained from other (indicate) (), Risks & Benefits reviewed and Agrees to proceed with procedure Procedure Narrative: Procedure: Right radial arterial line placement Indication: Need for invasive BP monitoring Consent: Signed and placed in chart Site: Right radial Anesthesia: 1 cc 1% lidocaine without epinephrine Description: Area prepped with chlorhexidine and draped in a sterile manner. Catheter inserted using Seldinger technique. Arterial waveform obtained. Ultrasound guidance used: Yes. EBL: 5 cc Complications: None Mick Batista MD Pulmonary, Critical Care Medicine Acute Procedures Epistaxis Control: Time out performed: Yes
--- NOTE | 2021-04-03 17:42 | XRR_ITS ---
PROCEDURE INFORMATION: Exam: XR Soft Tissue Neck Exam date and time: 04/03/2021 5:42 PM Age: 60 years old Clinical indication: Other: Deviated thyroid cartilage/left neck mass TECHNIQUE: Imaging protocol: XR of the soft tissues of the neck. COMPARISON: CR XR chest 1V portable [id number] 04/03/2021 2:32 PM FINDINGS: Tubes, catheters and devices: Endotracheal tube noted. Overlying medical equipment obscures evaluation of the soft tissues of the neck, particularly on lateral view. Left central line again noted extending outside the field of view. Airway: Normal. No abnormal narrowing. Soft tissues: Normal. Normal epiglottis. Bones/joints: Multilevel moderate degenerative changes predominantly centered within the mid and lower cervical spine. XR/XR soft tissue neck [id number] IMPRESSION: Limited evaluation of left neck mass due to modality and overlying medical equipment. For further evaluation, would recommend CT of the neck.
--- NOTE | 2021-04-03 17:42 | USR_ITS ---
PROCEDURE INFORMATION: Exam: US Soft Tissue Head and Neck, Soft Tissue Exam date and time: 04/03/2021 5:42 PM Age: 60 years old Clinical indication: Mass, lump, or swelling in neck; Left; Additional info: Neck swelling TECHNIQUE: Imaging protocol: Real-time ultrasound scan of the head and neck with image documentation. Exam focused on the soft tissue in the region of clinical concern. COMPARISON: CR (NECK, ) 04/03/2021 6:00 PM FINDINGS: Solid-appearing left neck mass measuring 2.9 x 2.7 cm of unclear origin, does not appear to originate from the thyroid. US/US soft tissue head neck [id number] IMPRESSION: Indeterminate left neck mass measuring nearly 3 cm in size. This does not appear to originate from the thyroid. Further evaluation with CT is recommended.
--- NOTE | 2021-04-03 18:00 | PC.NURSE ---
[address] Batista. Reviewed labs, ABG, medications, and plan of care. Plan to insert central line and art line in preparation to paralyze and prone patient. 1400 Dr. Batista at bedside. Reported lump in neck. Orders for imaging studies and KCL replacement. Discussed miss placed OGT. Reported blood clots with removal. Orders to leave OGT out at this time.
--- NOTE | 2021-04-03 18:02 | PM.PN ---
Subjective Subjective: Interval history: Intubated, sedated. Paralyzed. Vitals/I&O/Wt Last Vital Signs Temp 98.7 F 04/03/21 11:00 Pulse 69 04/03/21 16:00 Resp 22 H 04/03/21 16:27 BP 96/69 04/03/21 16:00 Pulse Ox 93 04/03/21 16:27 04/03/21 04/03/21 04/03/21 06:59 14:59 22:59 Intake Total 227.563 / 809.299 433.332 / 433.332 Output Total 300 / 800 300 / 300 Balance -72.437 / 9.299 133.332 / 133.332 Weight last 48 hrs Weight 84 kg Weight 84 kg Weight 95.436 kg Physical Exam Const: COMMON NORMALS: no acute distress GENERAL APPEARANCE: patient mechanically ventilated HENMT: COMMON NORMALS: oropharynx normal FACE & SINUS: other (Cervical L-price tracheal deviation) Neck/C-Spine: COMMON NORMALS: no JVD Resp: COMMON NORMALS: clear to auscultation bilaterally AUSCULTATION: clear to auscultation bilaterally Cardio: COMMON NORMALS: no JVD, regular rhythm, S1 normal heart sound present, S2 normal heart sound present and No murmurs present (Cardio) RHYTHM: regular rhythm HEART SOUNDS: S1 normal heart sound present and S2 normal heart sound present GI: COMMON NORMALS: Normal to inspection, nondistended, normoactive bowel sounds present and Soft to palpation PALPATION: Yes Soft to palpation Extremity: COMMON NORMALS: no joint enlargement and no pedal edema Skin: COMMON NORMALS: no rashes or lesions noted GENERAL SKIN EXAM: no rashes or lesions noted Urinary Catheter Management^: Mullen: Cath Placed During This Visit: yes Reason for Continuing Indwelling Catheter: Accurate Measurement of Urinary Output in Critically Ill Patients Urinary Catheter Date of Insertion: 04/02/21 Urinary Catheter Time of Insertion: 20:00 Data : 04/03/21 04:45 04/03/21 04:45 Micro: Microbiology 04/02/21 23:50 Gram Stain - Final Sputum - Endotracheal Wash A&P Assessment and plan (1) Hypoxemia: Declined respiratory status overnight, intubated, sedated, requiring paralysis. Consideration of proning today, however, noted to have some leftward cervical tracheal deviation, additional assessment by neck x-ray, ultrasound. Currently requiring 100% FiO2. Saturation high 80s. Continue treatment for severe COVID-19. Continue remdesivir, Decadron. Continue empiric ceftriaxone, azithromycin. Nasopharyngeal blood noted on attempted placement of NGT. This is withdrawn, currently held. Eliquis held. Status: Acute (2) COVID-19: Status: Acute (3) Ischemic cardiomyopathy: Lasix on hold for now as he currently does not appear volume overloaded to me. Status: Acute (4) Acute kidney injury: Little bit better, creatinine down to 1. BUN 25. Status: Acute (5) Hyponatremia: Resolved. Status: Acute (6) Atherosclerosis of coronary artery of [place] heart without angina pectoris: Continue cardiac medications. Status: Acute Qualifiers: Coronary Disease-Associated Artery/Lesion type: unspecified vessel or lesion type Qualified Code(s): I25.10 - Atherosclerotic heart disease of [place] coronary artery without angina pectoris (7) Dyslipidemia: Status: Acute (8) Benign essential HTN: Status: Acute Additional A&P Information Hypokalemia: Replace. Attestations Medical Necessity Statement*: Continue admission for assessment management of hypoxic respiratory failure with severe COVID-19. Requiring mechanical ventilatory support. Coding Level of Care Code Acute Aquatics Director for [facility] Diagnoses Hypoxemia R09.02 COVID-19 U07.1 Ischemic cardiomyopathy I25.5 Acute kidney injury N17.9 Hyponatremia E87.1 Atherosclerosis of coronary artery of [place] heart without angina pectoris I25.10 Coronary Disease-Associated Artery/Lesion type: unspecified vessel or lesion type Dyslipidemia E78.5 Benign essential HTN I10
[2021-04-03] MEDS: remdesivir 100 MG in sodium chloride 0.9% (100 ml) 100 ML IV (18:36)
[2021-04-03 19:15] LABS: Basophils % 0.1 %; Hematocrit 39.9 % (42.0-52.0); Hemoglobin 13.8 g/dL (11.7-16.6); Lymphocytes # 0.1 10^3/uL (0.8-4.8); Lymphocytes % 1.3 %; Mean Corpuscular HGB Conc 34.6 g/dL (30.0-36.0); Mean Corpuscular Hemoglobin 34.5 pg (28.0-34.0); Mean Corpuscular Volume 99.8 fl (80-94); Monocytes # 0.2 10^3/uL (0.2-0.9); Monocytes % 3.5 %; Neutrophils # 6.37 10^3/uL (1.8-7.7); Neutrophils % 94.2 %; Nucleated Red Blood Cells % 0 %; Platelet Count 331 10^3/cmm (130-400); White Blood Count 6.8 10^3/uL (4.0-10.0)
--- NOTE | 2021-04-03 20:34 | PC.NUTR ---
NUTR TF RECOMMENDATIONS: Jevity with goal rate of 50 ml/hr providing 1440 kcal (75%), 66 g PRO (99%), and 968 ml fluid (50%)(%NEEDS). Suggest starting TF at 20 ml/hr and increase by 10 ml Q6H as tolerated till goal rate is met. Suggest 120 ml H2O flushes Q4H to approach fluid needs or per physician.
[2021-04-03] MEDS: cefTRIAXone 1,000 MG in sodium chloride 0.9% (plus) 100 ML 200 MG IV (22:58)
[2021-04-04] VITALS (102 sets, daily range): BP systolic 79–134; BP diastolic 47–80; PULSE 59–91; RESP 14–30; TEMP 36.1–36.9; O2SAT 93–100
[2021-04-04] MEDS: ipratropium-albuterol 3 mL Neb INHALATION ×5 (03:16→21:51)
--- NOTE | 2021-04-04 03:32 | PC.NURSE ---
Current BIS is 50, TOF-4
[2021-04-04 03:59] LABS: ABG PCO2 54.2 mmHg (35-45); ABG PH Result 7.31 (7.35-7.45); Alveolar-Arterial Oxygen Gradi 43.2 mmHg (5-10); Arterial Blood Gas Hematocrit 42.6 % (42-52); Blood Gas Operator Identificat JB; Blood Gas Sample Type Arterial; Carboxyhemoglobin 0.1 %THgb (0.4-20.1); HCO3 ABG 27.3 mmol/L (22-26); HGB O2 Sat 97.8 % (95-100); Ionized Calcium Level - ABG 1.2 mmol/L (1.1-1.4); Methemoglobin 1.1 % (0.4-1.5); Oxygen Device VENT; Oxygen Saturation ABG 98.9; Total Hemoglobin 13.9 g/dL (14-18)
[2021-04-04 04:22] LABS: Basophils % 0.2 %; Hematocrit 39.9 % (42.0-52.0); Hemoglobin 13.3 g/dL (11.7-16.6); Lymphocytes # 0.1 10^3/uL (0.8-4.8); Lymphocytes % 1.7 %; Mean Corpuscular HGB Conc 33.3 g/dL (30.0-36.0); Mean Corpuscular Hemoglobin 33.8 pg (28.0-34.0); Mean Corpuscular Volume 101.3 fl (80-94); Mean Platelet Volume 10.2 fL (7.4-10.4); Monocytes # 0.3 10^3/uL (0.2-0.9); Monocytes % 4.3 %; Neutrophils # 5.45 10^3/uL (1.8-7.7); Neutrophils % 92.8 %; Nucleated Red Blood Cells % 0 %; Platelet Count 303 10^3/cmm (130-400); Red Blood Count 3.94 10^6/uL (4.1-5.3); Red Cell Distribution Width 11.8 % (12.1-15.1); White Blood Count 5.9 10^3/uL (4.0-10.0)
[2021-04-04 04:39] LABS: Alanine Aminotransferase 32 U/L (0-41); Albumin Level 2.5 g/dL (3.5-5.2); Alkaline Phosphatase 94 IU/L (40-130); Anion Gap 15.4 (5-19); Aspartate Amino Transferase 23 U/L (0-40); Blood Urea Nitrogen 21 mg/dL (8-23); Calcium 8.2 mg/dL (8.5-10.5); Carbon Dioxide 25 mmol/L (22-29); Chloride 104 mmol/L (98-107); Creatinine Clr Calc Pharmacy 119.1583; Globulin 3.9 g/dL (1.3-4.6); Glomerular Filtration Rate 114.6 mL/min (90-130); Glucose 134 mg/dL (65-115); Magnesium 2.6 mg/dL (1.7-2.3); Osmolality Calculated 295 mOsm/kg (285-295); Potassium 4.4 mmol/L (3.5-5.1); Sodium 140 mmol/L (136-145); Total Bilirubin 0.5 mg/dL (0.15-1.2); Total Protein 6.4 g/dL (6.6-8.7)
[2021-04-04] MEDS: famotidine 20 mg/2 mL INJ IVP ×2 (05:59→18:04)
[2021-04-04] MEDS: dexamethasone 4 mg/mL INJ 6 MG IVP (06:07)
[2021-04-04] MEDS: propofol 1,000 MG/100 ML INJ 14.32 MG IV ×3 (06:12→18:08)
[2021-04-04] MEDS: budesonide 0.5 mg/2 mL Neb INHALATION ×2 (08:52→21:51)
[2021-04-04] MEDS: enoxaparin 40 mg/0.4 mL Syringe SUBCUT (10:18)
[2021-04-04] MEDS: cisatracurium 100 MG in sodium chloride 0.9% 50 ML 5.04 MG IV (14:31)
--- NOTE | 2021-04-04 15:24 | PC.RESP ---
RT Shift Note Frequent safety and respiratory rounds continue. Orders completed as indicated. Patient monitored pre and post treatments throughout shift. Patient [Did.] tolerate treatments appropriately. Condition [.DidNotChange]. Patient and/or applications sales representative educated on respiratory treatment and medications. Patient and/or applications sales representative [unable to comprehend]. Will continue to monitor patient progress.
--- NOTE | 2021-04-04 16:11 | PM.PN ---
Subjective Subjective: Interval history: Intubated, sedated, paralyzed, proned. Vitals/I&O/Wt Last Vital Signs Temp 97.7 F 04/04/21 11:15 Pulse 70 04/04/21 15:23 Resp 14 04/04/21 15:23 BP 102/57 04/04/21 12:45 Pulse Ox 97 04/04/21 15:23 04/04/21 04/04/21 04/04/21 06:59 14:59 22:59 Intake Total 414.727 / 977.528 165.252 / 165.252 Output Total 150 / 150 Balance 414.727 / 377.528 15.252 / 15.252 Weight last 48 hrs Weight 83.461 kg Weight 84 kg Weight 84 kg Physical Exam Const: COMMON NORMALS: no acute distress GENERAL APPEARANCE: patient mechanically ventilated HENMT: FACE & SINUS: other (Left of midline anterior solid neck mass) Neck/C-Spine: COMMON NORMALS: no JVD Resp: COMMON NORMALS: clear to auscultation bilaterally AUSCULTATION: clear to auscultation bilaterally Cardio: COMMON NORMALS: no JVD, regular rhythm, S1 normal heart sound present, S2 normal heart sound present and No murmurs present (Cardio) RHYTHM: regular rhythm HEART SOUNDS: S1 normal heart sound present and S2 normal heart sound present GI: COMMON NORMALS: Normal to inspection, nondistended, normoactive bowel sounds present and Soft to palpation PALPATION: Yes Soft to palpation Extremity: COMMON NORMALS: no joint enlargement and no pedal edema Skin: COMMON NORMALS: no rashes or lesions noted GENERAL SKIN EXAM: no rashes or lesions noted Urinary Catheter Management^: Mullen: Cath Placed During This Visit: yes Reason for Continuing Indwelling Catheter: Accurate Measurement of Urinary Output in Critically Ill Patients Urinary Catheter Date of Insertion: 04/02/21 Urinary Catheter Time of Insertion: 20:00 Data : 04/04/21 03:45 04/04/21 03:45 Micro: Microbiology 04/02/21 23:50 Gram Stain - Final Sputum - Endotracheal Wash Sputum Culture - Preliminary A&P Assessment and plan (1) Hypoxemia: On imaging the neck appearance was secondary to solid mass leftward of midline anteriorly in the neck. Unclear origin. This will need additional follow-up once he is more stable. Currently continue mechanical ventilatory support, proning with paralytics. Continue treatment for severe COVID-19. Continue remdesivir, Decadron. Continue empiric ceftriaxone, azithromycin. Anticoagulation was discontinued after noted blood clot after removal of coiled NGT. So far no additional bleeding noted. Is resumed on prophylactic Lovenox. Status: Acute (2) COVID-19: Severe COVID-19 with ARDS. As above. Status: Acute (3) Ischemic cardiomyopathy: Lasix on hold for now as he currently does not appear volume overloaded to me. Monitor for signs of CHF exacerbation. Weight currently lower than usual. Status: Acute (4) Acute kidney injury: Resolved. Status: Acute (5) Hyponatremia: Resolved. Status: Acute (6) Atherosclerosis of coronary artery of [place] heart without angina pectoris: Continue cardiac medications. Status: Acute Qualifiers: Coronary Disease-Associated Artery/Lesion type: unspecified vessel or lesion type Qualified Code(s): I25.10 - Atherosclerotic heart disease of [place] coronary artery without angina pectoris (7) Dyslipidemia: Status: Acute (8) Benign essential HTN: Status: Acute (9) Neck mass: Indeterminate left neck mass measuring nearly 3 cm in size, does not appear to originate from the thyroid. Will need additional evaluation once he is more stable. Consider CT. Could not reach by phone to discuss. Status: Acute Additional A&P Information Hypokalemia: Replaced. Attestations Medical Necessity Statement*: Continue admission for assessment arrangement of hypoxic respiratory failure with severe COVID-19, ARDS, requiring mechanical ventilatory support, proning, paralytics. Coding Level of Care Code Acute C 40A Crew Chief for [facility] Diagnoses Hypoxemia R09.02 COVID-19 U07.1 Ischemic cardiomyopathy I25.5 Acute kidney injury N17.9 Hyponatremia E87.1 Atherosclerosis of coronary artery of [place] heart without angina pectoris I25.10 Coronary Disease-Associated Artery/Lesion type: unspecified vessel or lesion type Dyslipidemia E78.5 Benign essential HTN I10 Neck mass R22.1
[2021-04-04] MEDS: remdesivir 100 MG in sodium chloride 0.9% (100 ml) 100 ML IV (18:04)
--- NOTE | 2021-04-04 18:29 | PC.NURSE ---
BIS TO4 0700 45 3/4 0800 41 2/4 1000 38 2/4 1200 41 2/4 1300 48 2/4 1400 46 2/4 1500 47 2/4 1600 48 1700 51 3/4 1800 72
--- NOTE | 2021-04-04 21:16 | PM.PN ---
Subjective Subjective: Interval history: -Patient seen at bedside today -Completed 1 proning session yesterday and will be prone to second time today -Otherwise clinically stable -Labs and imaging reviewed Medications: Reviewed: Yes Vitals/I&O/Wt Last Vital Signs Temp 97.0 F L 04/04/21 20:00 Pulse 64 04/04/21 21:00 Resp 19 H 04/04/21 21:00 BP 114/71 04/04/21 21:00 Pulse Ox 95 04/04/21 20:45 04/04/21 04/04/21 04/04/21 06:59 14:59 22:59 Intake Total 414.727 / 1077.528 165.252 / 165.252 80.946 / 246.198 Output Total 150 / 150 550 / 700 Balance 414.727 / 477.528 15.252 / 15.252 -469.054 / -453.802 Weight last 48 hrs Weight 184 lb Weight 185 lb 3.013 oz Weight 185 lb 3.013 oz Physical Exam Narrative: EXAM NARRATIVE: General: lying in bed, sedated and intubated. HEENT:NCAT, PERRLA, EOMI Neck: Prominent neck swelling noted just left to midline and felt as broken cartilage Lungs: Bilateral diffuse crackles Heart: s1/s2, RRR Abd: soft, NT, ND, BS + Normoactive Extremities: No edema CONSULTING SERVICES PROJECT MANAGER: sedated and limited CONSULTING SERVICES PROJECT MANAGER exam possible. SKIN: no rash LDA: # CVC: Left internal jugular vein 04/03/2021 # A line: Right radial arterial line 04/03/2021 Urinary Catheter Management^: Mullen: Cath Placed During This Visit: yes Reason for Continuing Indwelling Catheter: Accurate Measurement of Urinary Output in Critically Ill Patients Urinary Catheter Date of Insertion: 04/02/21 Urinary Catheter Time of Insertion: 20:00 Data : 04/04/21 03:45 04/04/21 03:45 Other Labs: Laboratory Results WBC 5.9 10^3/uL (4.0-10.0) 04/04/21 03:45 Corrected WBC Cancelled 03/27/21 15:45 RBC 3.94 10^6/uL (4.1-5.3) L 04/04/21 03:45 Hgb 13.3 g/dL (11.7-16.6) 04/04/21 03:45 Hct 39.9 % (42.0-52.0) L 04/04/21 03:45 MCV 101.3 fl (80-94) H 04/04/21 03:45 MCH 33.8 pg (28.0-34.0) 04/04/21 03:45 MCHC 33.3 g/dL (30.0-36.0) 04/04/21 03:45 RDW 11.8 % (12.1-15.1) L 04/04/21 03:45 Plt Count 303 10^3/cmm (130-400) 04/04/21 03:45 MPV 10.2 fL (7.4-10.4) 04/04/21 03:45 Gran % Cancelled 03/27/21 15:45 Neut % (Auto) 92.8 % 04/04/21 03:45 Lymph % (Auto) 1.7 % 04/04/21 03:45 [place] % (Auto) 4.3 % 04/04/21 03:45 Eos % (Auto) 0.0 % 04/04/21 03:45 Baso % (Auto) 0.2 % 04/04/21 03:45 Neut # (Auto) 5.45 10^3/uL (1.8-7.7) 04/04/21 03:45 Lymph # (Auto) 0.1 10^3/uL (0.8-4.8) L 04/04/21 03:45 [place] # (Auto) 0.3 10^3/uL (0.2-0.9) 04/04/21 03:45 Eos # (Auto) 0.0 10^3/uL (0.0-0.8) 04/04/21 03:45 Baso # (Auto) 0.0 10^3/uL (0.0-0.1) 04/04/21 03:45 Absolute Gran (auto) Cancelled 03/27/21 15:45 Nucleated RBC % (auto) 0 % 04/04/21 03:45 Nucleated RBCs # 0.0 /100WBC 04/04/21 03:45 ESR 57 mm/hr (0-10) H 04/03/21 04:45 D-Dimer 2.88 ug/mIFEU (0-0.59) H 04/03/21 04:45 Specimen Type Arterial 04/04/21 03:46 Sample Site Radial, left 04/02/21 21:49 ABG pH 7.31 (7.35-7.45) L 04/04/21 03:46 ABG pCO2 54.2 mmHg (35-45) H 04/04/21 03:46 ABG pO2 170.0 mmHg (80.0-100.0) H 04/04/21 03:46 ABG HCO3 27.3 mmol/L (22-26) H 04/04/21 03:46 ABG O2 Saturation 98.9 04/04/21 03:46 ABG Base Excess 0.0 mmol/L (-2.0-2.0) 04/04/21 03:46 Hoang Test N/a 04/04/21 03:46 A-a O2 Gradient 43.2 mmHg (5-10) H 04/04/21 03:46 Hematocrit 42.6 % (42-52) 04/04/21 03:46 Hgb O2 Saturation 97.8 % (95-100) 04/04/21 03:46 Carboxyhemoglobin 0.1 %THgb (0.4-20.1) L 04/04/21 03:46 Methemoglobin 1.1 % (0.4-1.5) 04/04/21 03:46 Total Hemoglobin 13.9 g/dL (14-18) L 04/04/21 03:46 Sodium 141.0 mmol/L (131-143) 04/04/21 03:46 Potassium 4.0 mmol/L (3.5-5.0) 04/04/21 03:46 Glucose 141.0 mg/dL (70-115) H 04/04/21 03:46 Ionized Calcium 1.2 mmol/L (1.1-1.4) 04/04/21 03:46 O2 Delivery Device Vent 04/04/21 03:46 O2 Liters/Min 15.0 % 04/02/21 21:49 FiO2 80.0 % 04/04/21 03:46 Tidal Volume 0.50 04/04/21 03:46 PEEP 10.0 cmH20 04/04/21 03:46 Ice Skating Instructor ID Hilton 04/04/21 03:46 Sodium 140 mmol/L (136-145) 04/04/21 03:45 Potassium 4.4 mmol/L (3.5-5.1) 04/04/21 03:45 Chloride 104 mmol/L (98-107) 04/04/21 03:45 Carbon Dioxide 25 mmol/L (22-29) 04/04/21 03:45 Anion Gap 15.4 (5-19) 04/04/21 03:45 BUN 21 mg/dL (8-23) 04/04/21 03:45 Creatinine 0.7 mg/dL (0.7-1.2) 04/04/21 03:45 GFR Calculation 114.6 mL/min (90-130) 04/04/21 03:45 Glucose 134 mg/dL (65-115) H 04/04/21 03:45 Estimat Average Glucose 123 03/28/21 05:50 Hemoglobin A1c 5.9 % (4.0-6.0) 03/28/21 05:50 Calculated Osmolality 295 mOsm/kg (285-295) 04/04/21 03:45 Lactic Acid 1.8 mmol/L (0.5-2.2) 03/27/21 15:45 Calcium 8.2 mg/dL (8.5-10.5) L 04/04/21 03:45 Phosphorus 3.9 mg/dL (2.5-4.5) 03/28/21 05:50 Magnesium 2.6 mg/dL (1.7-2.3) H 04/04/21 03:45 Iron 32 ug/dL (59-158) L 03/27/21 19:06 TIBC 190 mcg/dl 03/27/21 19:06 % Saturation 16.8 % (20-50) L 03/27/21 19:06 Unsat Iron Binding 158 ug/dL (112-347) 03/27/21 19:06 Ferritin 2350 ng/mL (30-400) H 03/30/21 05:23 Total Bilirubin 0.5 mg/dL (0.15-1.2) 04/04/21 03:45 AST 23 U/L (0-40) 04/04/21 03:45 ALT 32 U/L (0-41) 04/04/21 03:45 Alkaline Phosphatase 94 IU/L (40-130) 04/04/21 03:45 Creatine Kinase 100 U/L (39-308) 03/30/21 05:23 Troponin T Baseline 12 ng/L (0-15) 03/27/21 16:21 Troponin T 120 Minute 12.00 ng/L (0-15) 03/27/21 18:24 Delta Troponin T 0 ABS# (0-10) 03/27/21 18:24 C-Reactive Protein 91.9 mg/L (0.0-4.9) H 04/03/21 04:45 C-Reactive Protein Cancelled 04/03/21 04:45 NT-Pro-B Natriuret Pep 1027 pg/mL (0-125) H 04/03/21 04:45 NT-Pro-B Natriuret Pep Cancelled 04/03/21 04:45 Total Protein 6.4 g/dL (6.6-8.7) L 04/04/21 03:45 Albumin 2.5 g/dL (3.5-5.2) L 04/04/21 03:45 Globulin 3.9 g/dL (1.3-4.6) 04/04/21 03:45 Triglycerides 75 mg/dL (0-150) 03/28/21 05:50 Cholesterol 115 mg/dL (0-200) 03/28/21 05:50 LDL Cholesterol, Calc 67 mg/dL (50-129) 03/28/21 05:50 Total VLDL Cholesterol 15 mg/dL (0-30) 03/28/21 05:50 HDL Cholesterol 33 mg/dL (60-100) L 03/28/21 05:50 Cholesterol/HDL Ratio 3.48 mg/dL (1.0-5.00) 03/28/21 05:50 Procalcitonin 0.10 ng/mL (0-0.5) 03/31/21 04:18 TSH 0.89 uIU/mL (0.27-4.20) 03/27/21 19:06 Urine Color Yellow (Yellow) 03/28/21 03:15 Urine Appearance Sl hazy (CLEAR) 03/28/21 03:15 Urine pH 5 (5-7) 03/28/21 03:15 Ur Specific [place] 1.020 (1.005-1.030) 03/28/21 03:15 Urine Protein 3+ (Negative) H 03/28/21 03:15 Urine Glucose (UA) Norm (Normal) 03/28/21 03:15 Urine Ketones Negative (Negative) 03/28/21 03:15 Urine Blood 3+ (Negative) H 03/28/21 03:15 Urine Nitrate Negative (Negative) 03/28/21 03:15 Urine Bilirubin Neg (Negative) 03/28/21 03:15 Urine Urobilinogen Norm mg/dL (Negative) 03/28/21 03:15 Ur Leukocyte Esterase Negative (Negative) 03/28/21 03:15 Urine RBC 0-4 /hpf (0-2) H 03/28/21 03:15 Urine WBC 0-4 /hpf (0-5) H 03/28/21 03:15 Ur Squamous Epith Cells 0-4 /hpf (0-5) H 03/28/21 03:15 Ur Renal Epithelial Cell 0 /hpf 03/28/21 03:15 Calcium Oxalate Crystal 0-4 /hpf H 03/28/21 03:15 Amorphous Sediment 3+ /hpf 03/28/21 03:15 Urine Bacteria Trace /hpf (NONE) 03/28/21 03:15 Coarse Granular Casts 0-4 /lpf H 03/28/21 03:15 Ur Random Sodium 14 mmol/L 03/28/21 03:15 Ur Random Potassium 62 mmol/L 03/28/21 03:15 Ur Random Chloride 12 mmol/L 03/28/21 03:15 Urine Creatinine 160 mg/dL (39-259) 03/28/21 03:15 Impressions Chest CTA 03/28/21 00:03 IMPRESSION: 1. No pulmonary embolism. 2. Hazy bilateral pulmonary opacities which are consistent with COVID-19. 3. Small hiatal hernia. Radiation Dose CTDIVOL = (mGy): DLP = 597.74 (mGy-cm) Chest X-Ray 04/03/21 13:57 IMPRESSION: 1. LEFT central line in good position. No complications. 2. Again noted is the coiled catheter projecting over the cervical esophagus. I suspect this may be a coiled nasogastric tube within the esophagus. This finding was previously discussed with the patient's nurse several hours ago. At that time I recommended an AP neck radiograph to confirm this finding. Additional imaging at that time was declined by the patient's caregivers. This could be external to the patient but needs to be confirmed. Head/Neck Ultrasound 04/03/21 17:42 IMPRESSION: Indeterminate left neck mass measuring nearly 3 cm in size. This does not appear to originate from the thyroid. Further evaluation with CT is recommended. Soft Tissue Neck X-Ray 04/03/21 17:42 IMPRESSION: Limited evaluation of left neck mass due to modality and overlying medical equipment. For further evaluation, would recommend CT of the neck. Micro: Microbiology 04/02/21 23:50 Gram Stain - Final Sputum - Endotracheal Wash Sputum Culture - Preliminary A&P Assessment and plan (1) Acute hypoxemic respiratory failure due to severe acute respiratory syndrome coronavirus 2 (SARS-CoV-2) disease: Status: Acute (2) Acute kidney injury: Status: Acute (3) Hyponatremia: Status: Acute (4) COVID-19: Status: Acute (5) Ischemic cardiomyopathy: Status: Acute (6) Benign essential HTN: Status: Acute #Acute hypoxic respiratory failure secondary to ARDS due to COVID-19 pneumonia #Concern for alcohol withdrawal -as patient takes alcohol every night -Symptoms started 03/20/2021 -Test + 03/26/2021, CT 03/28/2020 were negative for pulmonary embolism -Intubated 04/02/2021-currently on CMV-500/80%/10 and ABG 7.3 1/54/170/27/98% -Sedated with Versed 2 mg/hour, fentanyl 25 MCG/hour, propofol 20 MCG/hour -Patient on Versed and received 1 dose of phenobarbital 130 MCG for possible alcohol withdrawal -Plan is to paralyze in prone today for second session -DuoNeb every 4 scheduled, Pulmicort 0.5 twice daily scheduled -Dexamethasone 6 mg daily started 03/28/2021 -Completed remdesivir 5-day course-continuing extended 5 more days -On Rocephin and azithromycin for empiric coverage -So far bacterial antigens, MRSA in nares, Legionella urine antigen, sputum culture, blood cultures-all negative; TTE Pending -CRP 91 today -Currently on Lovenox for DVT prophylaxis #Ischemic cardiomyopathy - 12/22/2020 stress test-large area of old myocardial infarction versus scarring -12/22/2020 echo-normal LV cavity size with EF estimated 45% -Aspirin 81/Imdur 30/metoprolol 50/atorvastatin 20 -Keep net negative to even -Lasix as needed # Hypokalemia-resolved -Supplemented-monitor #Deranged LFTs likely secondary to COVID-19 pneumonia-improved -Monitor LFTs #Neck swelling -Soft tissue neck x-ray limited evaluation of left neck mass due to modality and overlying medical equipment -Solid-appearing left neck mass measuring 2.9 x 2.7 cm of unclear origin, does not appear to originate from the thyroid. - Further evaluation with CT is recommended #Glucose well controlled #GI prophylaxis famotidine #DVT prophylaxis-Lovenox 40 #Full code #Family updated #Prognosis poor #Patient needs tube feeding-unfortunately NG tube could not be passed as it kept requiring in patient's pharynx Recommendations conveyed to hospitalist, RN, RT taking care of the patient Attestations Medical Necessity Statement*: Acute hypoxic respiratory failure secondary to ARDS due to COVID-19 pneumonia-intubated and mechanically ventilated and currently being proned still requiring high FiO2 Time Spent in Patient Care: Greater than 35 minutes (>than 50% of time spent in counselling and/or direct pt care on unit). Critical Care Time: Critical Care Time (min): 45 Coding Level of Care Code Established Pt Acute Photographic Editor for [facility] Patient Type Established History Comprehensive Exam Comprehensive Medical Decision Making High Complexity Diagnoses Acute hypoxemic respiratory failure due to severe acute respiratory syndrome coronavirus 2 (SARS-CoV-2) disease U07.1; J96.01 Acute kidney injury N17.9 Hyponatremia E87.1 COVID-19 U07.1 Ischemic cardiomyopathy I25.5 Benign essential HTN I10 Time Spent (min) 45
[2021-04-04] MEDS: cefTRIAXone 1,000 MG in sodium chloride 0.9% (plus) 100 ML 200 MG IV (22:33)
[2021-04-05] VITALS (85 sets, daily range): BP systolic 98–144; BP diastolic 61–85; PULSE 60–105; RESP 14–36; TEMP 35.8–36.8; O2SAT 91–100
[2021-04-05] MEDS: ipratropium-albuterol 3 mL Neb INHALATION ×6 (00:45→20:01)
[2021-04-05 04:09] LABS: ABG PH Result 7.41 (7.35-7.45); Arterial Blood Gas Hematocrit 39.1 % (42-52); Base Excess ABG 3.4 mmol/L (-2.0-2.0); Blood Gas Sample Type Arterial; HCO3 ABG 28.7 mmol/L (22-26); Oxygen Device VENT; PO2 ABG 87.2 mmHg (80.0-100.0)
[2021-04-05] MEDS: propofol 1,000 MG/100 ML INJ 20.04 MG IV ×4 (04:23→21:22)
[2021-04-05 05:26] LABS: Basophils % 0.2 %; Eosinophils % 0.1 %; Hematocrit 38.9 % (42.0-52.0); Hemoglobin 12.9 g/dL (11.7-16.6); Lymphocytes # 0.1 10^3/uL (0.8-4.8); Mean Corpuscular HGB Conc 33.2 g/dL (30.0-36.0); Mean Corpuscular Hemoglobin 34.1 pg (28.0-34.0); Mean Corpuscular Volume 102.9 fl (80-94); Monocytes # 0.4 10^3/uL (0.2-0.9); Neutrophils # 8.63 10^3/uL (1.8-7.7); Neutrophils % 93.9 %; Nucleated Red Blood Cells % 0 %; Platelet Count 360 10^3/cmm (130-400); Red Blood Count 3.78 10^6/uL (4.1-5.3); White Blood Count 9.2 10^3/uL (4.0-10.0)
[2021-04-05 05:41] LABS: Alanine Aminotransferase 24 U/L (0-41); Albumin Level 2.3 g/dL (3.5-5.2); Alkaline Phosphatase 78 IU/L (40-130); Blood Urea Nitrogen 22 mg/dL (8-23); Calcium 8.3 mg/dL (8.5-10.5); Carbon Dioxide 25 mmol/L (22-29); Chloride 102 mmol/L (98-107); Globulin 3.8 g/dL (1.3-4.6); Glomerular Filtration Rate 114.6 mL/min (90-130); Glucose 117 mg/dL (65-115); Magnesium 2.4 mg/dL (1.7-2.3); Osmolality Calculated 290 mOsm/kg (285-295); Sodium 138 mmol/L (136-145); Total Bilirubin 0.3 mg/dL (0.15-1.2); Total Protein 6.1 g/dL (6.6-8.7)
[2021-04-05 05:46] LABS: Anion Gap 15.5 (5-19); Aspartate Amino Transferase 27 U/L (0-40); Potassium 4.5 mmol/L (3.5-5.1)
[2021-04-05] MEDS: dexamethasone 4 mg/mL INJ 6 MG IVP (06:25)
[2021-04-05] MEDS: famotidine 20 mg/2 mL INJ IVP ×2 (06:26→18:40)
--- NOTE | 2021-04-05 06:36 | PC.NURSE ---
Shift Note Frequent safety and comfort rounds continue. Orders and/or nursing care completed as indicated. Patient monitored for response to intervention and treatment(s). Education provided includes[]. Patient and/or hostess party sales representative [ResponseToTeaching]. Will continue to monitor. Patient remained stable throughout the shift. Patient turned prone at approx 0000 with no complications. Patients vitals remain stable, afebrile. Gtts adjusted as needs, and patient repositioned Q2 for comfort, and oral care done Q2. TOF and BIS checked Q2 2000: TOF: 4/4, BIS: 50 2200: TOF: 4/4, BIS: 55 0000: TOF: 3/4, BIS: 51 0200: TOF: 3/4, BIS: 42 0400: TOF: 4/4, BIS: 47 0600: TOF: 3/4, BIS: 45
[2021-04-05] MEDS: budesonide 0.5 mg/2 mL Neb INHALATION ×2 (08:16→20:01)
[2021-04-05] MEDS: enoxaparin 40 mg/0.4 mL Syringe SUBCUT (09:51)
--- NOTE | 2021-04-05 12:16 | PC.NUTR ---
Nutrition follow up: Day 3 of NPO status. Unable to place NG/OG per nurse. If able to place NG/OG tube at later time, recommend Jevity 1.2 at goal rate of 40 ml/hr with 150 ml H2O flushes q 4 hrs to provide 1152 kcal, 53 g protein, 1675 ml H2O. Suggest starting TF at 20 ml/hr and increase by 10 ml Q6H as tolerated till goal rate is met. Noted propofol providing additional 529 kcal/day at current rate. See full RD assessment for further details.
--- NOTE | 2021-04-05 15:31 | PC.NURSE ---
Supine at 1530, no complications.
--- NOTE | 2021-04-05 15:31 | PC.NURSE ---
Wedding ring removed and placed with belongings due to swelling.
--- NOTE | 2021-04-05 16:00 | XR_ITS ---
WS: [id number] Portable AP upright chest, 04/05/2021 Clinical Data: covid Comparison: Portable chest, 04/03/2021. Findings: Bilateral patchy pulmonary opacities remain the same. The endotracheal tube, left internal jugular venous catheter or monitor leads remain in good position. The nasogastric tube has been remov ed. The heart is normal. XR/XR chest 1V portable [id number] Impression: 1. No change in patchy bilateral pulmonary opacities consistent with pneumonia. 2. Removal of nasogastric tube but no change in endotracheal tube and left inte rnal jugular venous catheter.
--- NOTE | 2021-04-05 17:15 | XRR_ITS ---
PROCEDURE INFORMATION: Exam: XR Chest Exam date and time: 04/05/2021 5:15 PM Age: 60 years old Clinical indication: Device placement; Other: Og; Additional info: Og tube placement TECHNIQUE: Imaging protocol: XR of the chest. Views: 1 view. COMPARISON: CR XR chest 1V portable [id number] 04/05/2021 3:54 PM FINDINGS: Limitations: The apices are cut off on this examination. Tubes, catheters and devices: OG tube tip is entering the stomach. The distal side port appears to be in the distal esophagus. It is suggested that this be advanced further for better positioning. Left jugular central venous catheter tip remains in the superior vena cava. Endotracheal tube is not visualized on this examination due to positioning. Lungs: There is no change in the pulmonary infiltrates in the visualized portions of lungs compared with the earlier exam. Pleural spaces: Unremarkable. No pleural effusion. No pneumothorax. Heart/Mediastinum: Unremarkable. No cardiomegaly. Bones/joints: Unremarkable. XR/XR chest 1V portable [id number] IMPRESSION: OG tube tip is entering the stomach. Further advancement is suggested.
[2021-04-05] MEDS: remdesivir 100 MG in sodium chloride 0.9% (100 ml) 100 ML IV (18:39)
[2021-04-05] MEDS: ferrous gluconate 324 mg Tablet PO (18:39)
[2021-04-05] MEDS: guaiFENesin 600 mg Tablet 1200 MG PO (18:39)
[2021-04-05] MEDS: cisatracurium 100 MG in sodium chloride 0.9% 50 ML 5.04 MG IV (18:40)
--- NOTE | 2021-04-05 20:48 | PM.PN ---
Subjective Subjective: Interval history: Intubated, sedated, paralyzed. Vitals/I&O/Wt Last Vital Signs Temp 96.5 F L 04/05/21 20:00 Pulse 63 04/05/21 20:23 Resp 14 04/05/21 20:08 BP 113/74 04/05/21 20:00 Pulse Ox 96 04/05/21 20:08 04/05/21 04/05/21 04/05/21 06:59 14:59 22:59 Intake Total 370.750 / 716.948 244.285 / 244.285 236.957 / 481.242 Output Total 500 / 1200 450 / 450 Balance -129.250 / -483.052 244.285 / 244.285 -213.043 / 31.242 Weight last 48 hrs Weight 83.915 kg Weight 83.461 kg Physical Exam Const: COMMON NORMALS: no acute distress GENERAL APPEARANCE: patient mechanically ventilated HENMT: COMMON NORMALS: oropharynx normal FACE & SINUS: other (Left of midline anterior solid neck mass) Neck/C-Spine: COMMON NORMALS: no JVD Resp: COMMON NORMALS: clear to auscultation bilaterally AUSCULTATION: clear to auscultation bilaterally Cardio: COMMON NORMALS: no JVD, regular rhythm, S1 normal heart sound present, S2 normal heart sound present and No murmurs present (Cardio) RHYTHM: regular rhythm HEART SOUNDS: S1 normal heart sound present and S2 normal heart sound present GI: COMMON NORMALS: Normal to inspection, nondistended, normoactive bowel sounds present and Soft to palpation PALPATION: Yes Soft to palpation Extremity: COMMON NORMALS: no joint enlargement and no pedal edema Neuro: COMMON NORMALS: moves all extremities Skin: COMMON NORMALS: no rashes or lesions noted GENERAL SKIN EXAM: no rashes or lesions noted Urinary Catheter Management^: Mullen: Cath Placed During This Visit: yes Reason for Continuing Indwelling Catheter: Accurate Measurement of Urinary Output in Critically Ill Patients Urinary Catheter Date of Insertion: 04/02/21 Urinary Catheter Time of Insertion: 20:00 Data : 04/05/21 03:57 04/05/21 03:57 Micro: Microbiology 04/02/21 23:50 Gram Stain - Final Sputum - Endotracheal Wash Sputum Culture - Final A&P Assessment and plan (1) Hypoxemia: Additional session of proning. Continue Protonix. Mechanical ventilatory support. Currently continue mechanical ventilatory support, proning with paralytics. Continue treatment for severe COVID-19. Continue remdesivir, Decadron. Continue empiric ceftriaxone, azithromycin. Prophylactic Lovenox. Repeat sputum culture 04/02 with few mixed upper respiratory maynor. Status: Acute (2) COVID-19: Severe COVID-19 with ARDS. As above. Status: Acute (3) Ischemic cardiomyopathy: Lasix on hold for now as he currently does not appear volume overloaded to me. Monitor for signs of CHF exacerbation. Weight currently lower than usual. Status: Acute (4) Acute kidney injury: Resolved. Status: Acute (5) Hyponatremia: Resolved. Status: Acute (6) Atherosclerosis of coronary artery of [place] heart without angina pectoris: Continue cardiac medications. Status: Acute Qualifiers: Coronary Disease-Associated Artery/Lesion type: unspecified vessel or lesion type Qualified Code(s): I25.10 - Atherosclerotic heart disease of [place] coronary artery without angina pectoris (7) Dyslipidemia: Status: Acute (8) Benign essential HTN: Status: Acute (9) Neck mass: Indeterminate left neck mass measuring nearly 3 cm in size, does not appear to originate from the thyroid. Will need additional evaluation once he is more stable. Consider CT. Could not reach by phone to discuss. Status: Acute Additional A&P Information Hypokalemia: Replaced. Attestations Medical Necessity Statement*: Continue admission for assessment management of hypoxic respite failure with severe COVID-19. With underlying cardiomyopathy. Coding Level of Care Code Acute [employer] Nurse for [facility] Diagnoses Hypoxemia R09.02 COVID-19 U07.1 Ischemic cardiomyopathy I25.5 Acute kidney injury N17.9 Hyponatremia E87.1 Atherosclerosis of coronary artery of [place] heart without angina pectoris I25.10 Coronary Disease-Associated Artery/Lesion type: unspecified vessel or lesion type Dyslipidemia E78.5 Benign essential HTN I10 Neck mass R22.1
--- NOTE | 2021-04-05 20:51 | P.PN_ITS ---
Subjective Subjective: Interval history: -Patient seen at bedside today -He is proned second session and will turn him over later sometime today and plan for third session after 8 hours if saturations does not improve -Labs and imaging reviewed Medications: Reviewed: Yes Vitals/I&O/Wt Last Vital Signs Temp 96.5 F L 04/05/21 20:00 Pulse 63 04/05/21 20:23 Resp 14 04/05/21 20:08 BP 113/74 04/05/21 20:00 Pulse Ox 96 04/05/21 20:08 04/05/21 04/05/21 04/05/21 06:59 14:59 22:59 Intake Total 370.750 / 716.948 244.285 / 244.285 236.957 / 481.242 Output Total 500 / 1200 450 / 450 Balance -129.250 / -483.052 244.285 / 244.285 -213.043 / 31.242 Weight last 48 hrs Weight 185 lb Weight 184 lb Physical Exam Narrative: EXAM NARRATIVE: General: lying in bed, sedated and intubated. HEENT:NCAT, PERRLA, EOMI Neck: Prominent neck swelling noted just left to midline and felt as broken cartilage Lungs: Bilateral diffuse crackles Heart: s1/s2, RRR Abd: soft, NT, ND, BS + Normoactive Extremities: No edema TEST ENGINEER [employer]MENT: sedated and limited TEST ENGINEER [employer] E[employer]IPMENT exam possible. SKIN: no rash LDA: # CVC: Left internal jugular vein 04/03/2021 # A line: Right radial arterial line 04/03/2021 Urinary Catheter Management^: Mullen: Cath Placed During This Visit: yes Reason for Continuing Indwelling Catheter: Accurate Measurement of Urinary Output in Critically Ill Patients Urinary Catheter Date of Insertion: 04/02/21 Urinary Catheter Time of Insertion: 20:00 Data : 04/05/21 03:57 04/05/21 03:57 Other Labs: Laboratory Results WBC 9.2 10^3/uL (4.0-10.0) 04/05/21 03:57 Corrected WBC Cancelled 03/27/21 15:45 RBC 3.78 10^6/uL (4.1-5.3) L 04/05/21 03:57 Hgb 12.9 g/dL (11.7-16.6) 04/05/21 03:57 Hct 38.9 % (42.0-52.0) L 04/05/21 03:57 MCV 102.9 fl (80-94) H 04/05/21 03:57 MCH 34.1 pg (28.0-34.0) H 04/05/21 03:57 MCHC 33.2 g/dL (30.0-36.0) 04/05/21 03:57 RDW 12.0 % (12.1-15.1) L 04/05/21 03:57 Plt Count 360 10^3/cmm (130-400) 04/05/21 03:57 MPV 11.0 fL (7.4-10.4) H 04/05/21 03:57 Gran % Cancelled 03/27/21 15:45 Neut % (Auto) 93.9 % 04/05/21 03:57 Lymph % (Auto) 1.0 % 04/05/21 03:57 [place] % (Auto) 4.0 % 04/05/21 03:57 Eos % (Auto) 0.1 % 04/05/21 03:57 Baso % (Auto) 0.2 % 04/05/21 03:57 Neut # (Auto) 8.63 10^3/uL (1.8-7.7) H 04/05/21 03:57 Lymph # (Auto) 0.1 10^3/uL (0.8-4.8) L 04/05/21 03:57 [place] # (Auto) 0.4 10^3/uL (0.2-0.9) 04/05/21 03:57 Eos # (Auto) 0.0 10^3/uL (0.0-0.8) 04/05/21 03:57 Baso # (Auto) 0.0 10^3/uL (0.0-0.1) 04/05/21 03:57 Absolute Gran (auto) Cancelled 03/27/21 15:45 Nucleated RBC % (auto) 0 % 04/05/21 03:57 Nucleated RBCs # 0.0 /100WBC 04/05/21 03:57 ESR 57 mm/hr (0-10) H 04/03/21 04:45 D-Dimer 3.10 ug/mIFEU (0-0.59) H 04/05/21 03:57 Specimen Type Arterial 04/05/21 03:45 Sample Site Radial, left 04/02/21 21:49 ABG pH 7.41 (7.35-7.45) 04/05/21 03:45 ABG pCO2 45.0 mmHg (35-45) 04/05/21 03:45 ABG pO2 87.2 mmHg (80.0-100.0) 04/05/21 03:45 ABG HCO3 28.7 mmol/L (22-26) H 04/05/21 03:45 ABG O2 Saturation 98.9 04/04/21 03:46 ABG Base Excess 3.4 mmol/L (-2.0-2.0) H 04/05/21 03:45 Hoang Test N/a 04/05/21 03:45 A-a O2 Gradient 43.2 mmHg (5-10) H 04/04/21 03:46 Hematocrit 39.1 % (42-52) L 04/05/21 03:45 Hgb O2 Saturation 97.8 % (95-100) 04/04/21 03:46 Carboxyhemoglobin 0.1 %THgb (0.4-20.1) L 04/04/21 03:46 Methemoglobin 1.1 % (0.4-1.5) 04/04/21 03:46 Total Hemoglobin 13.9 g/dL (14-18) L 04/04/21 03:46 Sodium 141.0 mmol/L (131-143) 04/04/21 03:46 Potassium 4.0 mmol/L (3.5-5.0) 04/04/21 03:46 Glucose 141.0 mg/dL (70-115) H 04/04/21 03:46 Ionized Calcium 1.2 mmol/L (1.1-1.4) 04/04/21 03:46 O2 Delivery Device Vent 04/05/21 03:45 O2 Liters/Min 15.0 % 04/02/21 21:49 FiO2 50.0 % 04/05/21 03:45 Tidal Volume 0.50 04/05/21 03:45 PEEP 10.0 cmH20 04/05/21 03:45 Marketing Proposal Specialist ID Hinja 04/05/21 03:45 Sodium 138 mmol/L (136-145) 04/05/21 03:57 Potassium 4.5 mmol/L (3.5-5.1) 04/05/21 03:57 Chloride 102 mmol/L (98-107) 04/05/21 03:57 Carbon Dioxide 25 mmol/L (22-29) 04/05/21 03:57 Anion Gap 15.5 (5-19) 04/05/21 03:57 BUN 22 mg/dL (8-23) 04/05/21 03:57 Creatinine 0.7 mg/dL (0.7-1.2) 04/05/21 03:57 GFR Calculation 114.6 mL/min (90-130) 04/05/21 03:57 Glucose 117 mg/dL (65-115) H 04/05/21 03:57 Estimat Average Glucose 123 03/28/21 05:50 Hemoglobin A1c 5.9 % (4.0-6.0) 03/28/21 05:50 Calculated Osmolality 290 mOsm/kg (285-295) 04/05/21 03:57 Lactic Acid 1.8 mmol/L (0.5-2.2) 03/27/21 15:45 Calcium 8.3 mg/dL (8.5-10.5) L 04/05/21 03:57 Phosphorus 3.9 mg/dL (2.5-4.5) 03/28/21 05:50 Magnesium 2.4 mg/dL (1.7-2.3) H 04/05/21 03:57 Iron 32 ug/dL (59-158) L 03/27/21 19:06 TIBC 190 mcg/dl 03/27/21 19:06 % Saturation 16.8 % (20-50) L 03/27/21 19:06 Unsat Iron Binding 158 ug/dL (112-347) 03/27/21 19:06 Ferritin 2350 ng/mL (30-400) H 03/30/21 05:23 Total Bilirubin 0.3 mg/dL (0.15-1.2) 04/05/21 03:57 AST 27 U/L (0-40) 04/05/21 03:57 ALT 24 U/L (0-41) 04/05/21 03:57 Alkaline Phosphatase 78 IU/L (40-130) 04/05/21 03:57 Creatine Kinase 100 U/L (39-308) 03/30/21 05:23 Troponin T Baseline 12 ng/L (0-15) 03/27/21 16:21 Troponin T 120 Minute 12.00 ng/L (0-15) 03/27/21 18:24 Delta Troponin T 0 ABS# (0-10) 03/27/21 18:24 C-Reactive Protein 91.9 mg/L (0.0-4.9) H 04/03/21 04:45 C-Reactive Protein Cancelled 04/03/21 04:45 NT-Pro-B Natriuret Pep 1027 pg/mL (0-125) H 04/03/21 04:45 NT-Pro-B Natriuret Pep Cancelled 04/03/21 04:45 Total Protein 6.1 g/dL (6.6-8.7) L 04/05/21 03:57 Albumin 2.3 g/dL (3.5-5.2) L 04/05/21 03:57 Globulin 3.8 g/dL (1.3-4.6) 04/05/21 03:57 Triglycerides 75 mg/dL (0-150) 03/28/21 05:50 Cholesterol 115 mg/dL (0-200) 03/28/21 05:50 LDL Cholesterol, Calc 67 mg/dL (50-129) 03/28/21 05:50 Total VLDL Cholesterol 15 mg/dL (0-30) 03/28/21 05:50 HDL Cholesterol 33 mg/dL (60-100) L 03/28/21 05:50 Cholesterol/HDL Ratio 3.48 mg/dL (1.0-5.00) 03/28/21 05:50 Procalcitonin 0.10 ng/mL (0-0.5) 03/31/21 04:18 TSH 0.89 uIU/mL (0.27-4.20) 03/27/21 19:06 Urine Color Yellow (Yellow) 03/28/21 03:15 Urine Appearance Sl hazy (CLEAR) 03/28/21 03:15 Urine pH 5 (5-7) 03/28/21 03:15 Ur Specific [place] 1.020 (1.005-1.030) 03/28/21 03:15 Urine Protein 3+ (Negative) H 03/28/21 03:15 Urine Glucose (UA) Norm (Normal) 03/28/21 03:15 Urine Ketones Negative (Negative) 03/28/21 03:15 Urine Blood 3+ (Negative) H 03/28/21 03:15 Urine Nitrate Negative (Negative) 03/28/21 03:15 Urine Bilirubin Neg (Negative) 03/28/21 03:15 Urine Urobilinogen Norm mg/dL (Negative) 03/28/21 03:15 Ur Leukocyte Esterase Negative (Negative) 03/28/21 03:15 Urine RBC 0-4 /hpf (0-2) H 03/28/21 03:15 Urine WBC 0-4 /hpf (0-5) H 03/28/21 03:15 Ur Squamous Epith Cells 0-4 /hpf (0-5) H 03/28/21 03:15 Ur Renal Epithelial Cell 0 /hpf 03/28/21 03:15 Calcium Oxalate Crystal 0-4 /hpf H 03/28/21 03:15 Amorphous Sediment 3+ /hpf 03/28/21 03:15 Urine Bacteria Trace /hpf (NONE) 03/28/21 03:15 Coarse Granular Casts 0-4 /lpf H 03/28/21 03:15 Ur Random Sodium 14 mmol/L 03/28/21 03:15 Ur Random Potassium 62 mmol/L 03/28/21 03:15 Ur Random Chloride 12 mmol/L 03/28/21 03:15 Urine Creatinine 160 mg/dL (39-259) 03/28/21 03:15 Impressions Chest CTA 03/28/21 00:03 IMPRESSION: 1. No pulmonary embolism. 2. Hazy bilateral pulmonary opacities which are consistent with COVID-19. 3. Small hiatal hernia. Radiation Dose CTDIVOL = (mGy): DLP = 597.74 (mGy-cm) Head/Neck Ultrasound 04/03/21 17:42 IMPRESSION: Indeterminate left neck mass measuring nearly 3 cm in size. This does not appear to originate from the thyroid. Further evaluation with CT is recommended. Soft Tissue Neck X-Ray 04/03/21 17:42 IMPRESSION: Limited evaluation of left neck mass due to modality and overlying medical equipment. For further evaluation, would recommend CT of the neck. Chest X-Ray 04/05/21 17:15 IMPRESSION: OG tube tip is entering the stomach. Further advancement is suggested. Micro: Microbiology 04/02/21 23:50 Gram Stain - Final Sputum - Endotracheal Wash Sputum Culture - Final A&P Assessment and plan (1) Acute hypoxemic respiratory failure due to severe acute respiratory syndrome coronavirus 2 (SARS-CoV-2) disease: Status: Acute (2) Acute kidney injury: Status: Acute (3) Hyponatremia: Status: Acute (4) COVID-19: Status: Acute (5) Ischemic cardiomyopathy: Status: Acute (6) Benign essential HTN: Status: Acute #Acute hypoxic respiratory failure secondary to ARDS due to COVID-19 pneumonia #Concern for alcohol withdrawal -as patient takes alcohol every night -Symptoms started 03/20/2021 -Test + 03/26/2021, CT 03/28/2020 were negative for pulmonary embolism -Intubated 04/02/2021-currently on CMV-50%/500/10 and ABG 7.4 //28/98% -Sedated with Versed 2 mg/hour, fentanyl 25 MCG/hour, propofol 20 MCG/hour paralyzed -Patient on Versed and received 1 dose of phenobarbital 130 MCG for possible alcohol withdrawal -DuoNeb every 4 scheduled, Pulmicort 0.5 twice daily scheduled -Dexamethasone 6 mg daily started 03/28/2021 -Completed remdesivir 5-day course-continuing extended 5 more days -On Rocephin and azithromycin for empiric coverage -So far bacterial antigens, MRSA in nares, Legionella urine antigen, sputum culture, blood cultures-all negative; TTE Pending -CRP 91 today -Currently on Lovenox for DVT prophylaxis #Ischemic cardiomyopathy - 12/22/2020 stress test-large area of old myocardial infarction versus scarring -12/22/2020 echo-normal LV cavity size with EF estimated 45% -Aspirin 81/Imdur 30/metoprolol 50/atorvastatin 20 -Keep net negative to even -Lasix as needed # Hypokalemia-resolved -Supplemented-monitor #Deranged LFTs likely secondary to COVID-19 pneumonia-normalized -Monitor LFTs #Neck swelling -Soft tissue neck x-ray limited evaluation of left neck mass due to modality and overlying medical equipment -Solid-appearing left neck mass measuring 2.9 x 2.7 cm of unclear origin, does not appear to originate from the thyroid. - Further evaluation with CT is recommended and patient is stable #Difficult to pass NG tube patient is currently n.p.o. #Glucose well controlled #GI prophylaxis famotidine #DVT prophylaxis-Lovenox 40 #Full code #Family updated #Prognosis guarded #Patient needs tube feeding-unfortunately NG tube could not be passed as it kept requiring in patient's pharynx Recommendations conveyed to hospitalist, RN, RT taking care of the patient Attestations Medical Necessity Statement*: Acute hypoxic respiratory failure secondary to ARDS due to COVID-19 pneumonia-intubated and mechanically ventilated and currently being proned still requiring high FiO2 Time Spent in Patient Care: Greater than 35 minutes (>than 50% of time spent in counselling and/or direct pt care on unit) . Critical Care Time: The high probability of a clinically significant, sudden or life threatening deterioration of the patient's [pulmonary, neurological] system(s) required my full and direct attention, intervention and personal management. The critical care time is as shown. This time is in addition to time spent performing any reported procedures but includes the following: [x] Data and vital sign review and interpretation [x] Patient assessment, examination and intervention [x] Documentation [x] Medication orders and management Critical Care Time (min): 45 Coding Level of Care Code Established Pt Acute General Surgeon for Chg Fwd Patient Type Established History Comprehensive Exam Comprehensive Medical Decision Making High Complexity Diagnoses Acute hypoxemic respiratory failure due to severe acute respiratory syndrome coronavirus 2 (SARS-CoV-2) disease U07.1; J96.01 Acute kidney injury N17.9 Hyponatremia E87.1 COVID-19 U07.1 Ischemic cardiomyopathy I25.5 Benign essential HTN I10 Time Spent (min) 45
[2021-04-05] MEDS: cefTRIAXone 1,000 MG in sodium chloride 0.9% (plus) 100 ML 200 MG IV (22:24)
[2021-04-06] VITALS (107 sets, daily range): BP systolic 59–141; BP diastolic 36–100; PULSE 65–105; RESP 14–28; TEMP 36.4–38.3; O2SAT 86–97
[2021-04-06] MEDS: ipratropium-albuterol 3 mL Neb INHALATION ×7 (00:05→23:28)
[2021-04-06] MEDS: propofol 1,000 MG/100 ML INJ 20.04 MG IV ×2 (02:01→07:42)
[2021-04-06 03:18] LABS: ABG PCO2 45.6 mmHg (35-45); ABG PH Result 7.42 (7.35-7.45); Arterial Blood Gas Hematocrit 44.4 % (42-52); Base Excess ABG 4.2 mmol/L (-2.0-2.0); Blood Gas Sample Type Arterial; HCO3 ABG 29.5 mmol/L (22-26); Oxygen Device VENT; PO2 ABG 56.4 mmHg (80.0-100.0)
[2021-04-06 03:53] LABS: Basophils % 0.1 %; Eosinophils # 0.1 10^3/uL (0.0-0.8); Eosinophils % 1.4 %; Hematocrit 37.9 % (42.0-52.0); Hemoglobin 12.5 g/dL (11.7-16.6); Lymphocytes # 0.2 10^3/uL (0.8-4.8); Lymphocytes % 2.4 %; Mean Corpuscular Hemoglobin 34.2 pg (28.0-34.0); Mean Corpuscular Volume 103.8 fl (80-94); Mean Platelet Volume 10.5 fL (7.4-10.4); Monocytes # 0.2 10^3/uL (0.2-0.9); Monocytes % 2.8 %; Neutrophils # 6.58 10^3/uL (1.8-7.7); Neutrophils % 92.3 %; Nucleated Red Blood Cells % 0 %; Platelet Count 367 10^3/cmm (130-400); Red Blood Count 3.65 10^6/uL (4.1-5.3); White Blood Count 7.1 10^3/uL (4.0-10.0)
[2021-04-06 03:55] LABS: Alanine Aminotransferase 19 U/L (0-41); Albumin Level 2.3 g/dL (3.5-5.2); Alkaline Phosphatase 69 IU/L (40-130); Anion Gap 12.7 (5-19); Aspartate Amino Transferase 21 U/L (0-40); Blood Urea Nitrogen 24 mg/dL (8-23); Calcium 8.2 mg/dL (8.5-10.5); Carbon Dioxide 27 mmol/L (22-29); Chloride 106 mmol/L (98-107); Globulin 3.6 g/dL (1.3-4.6); Glomerular Filtration Rate 114.6 mL/min (90-130); Glucose 98 mg/dL (65-115); Magnesium 2.4 mg/dL (1.7-2.3); Osmolality Calculated 296 mOsm/kg (285-295); Potassium 4.7 mmol/L (3.5-5.1); Sodium 141 mmol/L (136-145); Total Bilirubin 0.3 mg/dL (0.15-1.2); Total Protein 5.9 g/dL (6.6-8.7)
[2021-04-06 04:24] LABS: Folate Level 6.7 ng/mL (4.5-32.2)
[2021-04-06 05:09] LABS: Vitamin B12 851 pg/mL (232-1245)
--- NOTE | 2021-04-06 06:00 | XR_ITS ---
WS: [id number] Portable AP semiupright chest, 04/06/2021 Clinical Data: pneumonia Comparison: Portable chest, 04/05/2021 Findings: The bilateral patchy pulmonary opacities remain the same. The position of the multiple tube s remains the same. The heart is normal. Monitor leads are on the chest wall. XR/XR chest 1V portable [id number] Impression: 1. No change in bilateral patchy pulmonary opacities. 2. No change in position of multiple tubes.
[2021-04-06] MEDS: famotidine 20 mg/2 mL INJ IVP ×2 (06:33→19:11)
[2021-04-06] MEDS: dexamethasone 4 mg/mL INJ 6 MG IVP (06:33)
--- NOTE | 2021-04-06 06:37 | PC.NURSE ---
Patient remained stable throughout shift. Increased FiO2 to 50% due to patient maintaining sats at 88-89%. Patient remained supine, r/t Datar verbal order. Wean from sedation and paralytic as tolerated. TOF and BIS observed Q2. 2000 TOF: 4/4, BIS: 37 2200 TOF: 3/4, BIS: 44 0000 TOF: 3/4, BIS: 47 0200 TOF: 3/4, BIS: 55 0400 TOF: 4/4, BIS: 55 0600 TOF: 4/4, BIS: 65
[2021-04-06] MEDS: budesonide 0.5 mg/2 mL Neb INHALATION ×2 (08:13→19:49)
[2021-04-06] MEDS: ferrous gluconate 324 mg Tablet PO (08:58)
[2021-04-06] MEDS: atorvastatin 40 mg Tablet 20 MG PO (08:59)
[2021-04-06] MEDS: zinc gluconate 50 mg Tablet PO (08:59)
[2021-04-06] MEDS: ascorbic acid 500 mg Tablet PO (08:59)
[2021-04-06] MEDS: aspirin 81 mg EC Tablet PO (08:59)
[2021-04-06] MEDS: azithromycin 250 mg Tablet 500 MG PO (08:59)
[2021-04-06] MEDS: benzonatate 100 mg Capsule PO (09:00)
[2021-04-06] MEDS: folic acid 1 mg Tablet PO (09:00)
[2021-04-06] MEDS: guaiFENesin 600 mg Tablet 1200 MG PO (09:00)
[2021-04-06] MEDS: isosorbide mononitrate ER 30 mg Tablet PO (09:00)
[2021-04-06] MEDS: multivitamin therapeutic Tablet 1 TAB PO (09:00)
[2021-04-06] MEDS: thiamine 100 mg Tablet PO (09:00)
[2021-04-06] MEDS: enoxaparin 40 mg/0.4 mL Syringe SUBCUT (09:01)
[2021-04-06] MEDS: metoprolol succinate ER (24 HR) 50 mg Tablet PO (09:21)
[2021-04-06] MEDS: acetaminophen 325 mg Tablet 650 MG PO (09:34)
--- NOTE | 2021-04-06 11:10 | PC.NURSE ---
Patent has been anuric since the beggining of shift. Inspection of the [place]aca catheter line reveals large sediment clots. Nurse attempted to flush apodaca line to clear sediment but it is completely occluded. Nurse inserted new apodaca per orders. 300mL of urine output with insertion.
[2021-04-06] MEDS: propofol 1,000 MG/100 ML INJ 22.91 MG IV ×2 (12:06→18:26)
--- NOTE | 2021-04-06 13:31 | PC.NURSE ---
Nurse restarted versed and nimbex due to proning scheduled for 1430. Titrating per protocol.
--- NOTE | 2021-04-06 16:16 | PC.NURSE ---
TUrned patient prone at 1430. Needs to be supinated at 0630 on 04/07/2021. Turn was uneventful. nurse updated family.
[2021-04-06] MEDS: remdesivir 100 MG in sodium chloride 0.9% (100 ml) 100 ML IV (17:22)
--- NOTE | 2021-04-06 18:55 | P.PN_ITS ---
Subjective Subjective: Interval history: Intubated, sedated, paralyzed, proned. Vitals/I&O/Wt Last Vital Signs Temp 99.4 F 04/06/21 12:15 Pulse 76 04/06/21 18:30 Resp 14 04/06/21 18:00 BP 90/55 04/06/21 18:30 Pulse Ox 95 04/06/21 18:30 04/06/21 04/06/21 04/06/21 06:59 14:59 22:59 Intake Total 196.289 / 940.612 255.257 / 255.257 301.540 / 556.797 Output Total 450 / 900 225 / 225 350 / 575 Balance -253.711 / 40.612 30.257 / 30.257 -48.460 / -18.203 Weight last 48 hrs Weight 84.368 kg Weight 83.915 kg Physical Exam Const: COMMON NORMALS: no acute distress GENERAL APPEARANCE: patient mechanically ventilated HENMT: COMMON NORMALS: oropharynx normal FACE & SINUS: other (Left of midline anterior solid neck mass) Neck/C-Spine: COMMON NORMALS: no JVD Resp: COMMON NORMALS: clear to auscultation bilaterally AUSCULTATION: clear to auscultation bilaterally Cardio: COMMON NORMALS: no JVD, regular rhythm, S1 normal heart sound present, S2 normal heart sound present and No murmurs present (Cardio) RHYTHM: regular rhythm HEART SOUNDS: S1 normal heart sound present and S2 normal heart sound present GI: COMMON NORMALS: Normal to inspection, nondistended, normoactive bowel sounds present and Soft to palpation PALPATION: Yes Soft to palpation Extremity: COMMON NORMALS: no joint enlargement and no pedal edema Skin: COMMON NORMALS: no rashes or lesions noted GENERAL SKIN EXAM: no rashes or lesions noted Urinary Catheter Management^: Mullen: Cath Placed During This Visit: yes, but has since been removed by the nurse Reason for Continuing Indwelling Catheter: Accurate Measurement of Urinary Output in Critically Ill Patients Urinary Catheter Date of Insertion: 04/06/21 Urinary Catheter Time of Insertion: 11:09 Date Urinary Catheter Removed: 04/06/21 Time Urinary Catheter Discontinued: 11:07 Data : 04/06/21 03:00 04/06/21 03:00 A&P Assessment and plan (1) Hypoxemia: Fever early this morning. Blood cultures, urine cultures collected. Continues on ceftriaxone, azithromycin. Heavy sediment noted in urine. Possible UTI, or possibly due to urinary retention as Mullen found clogged with sediment and had to be changed. Prolonged. Mechanical ventilatory support. Continue treatment for severe COVID-19. Continue remdesivir, Decadron. Prophylactic Lovenox. Repeat sputum culture 04/02 with few mixed upper respiratory myanor. Status: Acute (2) COVID-19: Severe COVID-19 with ARDS. As above. Status: Acute (3) Ischemic cardiomyopathy: Lasix on hold for now as he currently does not appear volume overloaded to me. Monitor for signs of CHF exacerbation. Weight currently lower than usual. Status: Acute (4) Acute kidney injury: Resolved. Status: Acute (5) Hyponatremia: Resolved. Status: Acute (6) Atherosclerosis of coronary artery of [place] heart without angina pectoris: Continue cardiac medications. Status: Acute Qualifiers: Coronary Disease-Associated Artery/Lesion type: unspecified vessel or lesion type Qualified Code(s): I25.10 - Atherosclerotic heart disease of [place] coronary artery without angina pectoris (7) Dyslipidemia: Status: Acute (8) Benign essential HTN: Status: Acute (9) Neck mass: Indeterminate left neck mass measuring nearly 3 cm in size, does not appear to originate from the thyroid. Will need additional evaluation once he is more stable. Consider CT. Could not reach by phone to discuss. Status: Acute (10) Fever: Status: Acute Additional A&P Information Hypokalemia: Replaced. Attestations Medical Necessity Statement*: Continue admission for further proning, mechanical ventilatory support secondary to hypoxic respiratory failure with severe COVID-19, empiric antibiotic coverage, additional assessment of fever episode. Coding Level of Care Code Acute Car Pincher for [facility] Diagnoses Hypoxemia R09.02 COVID-19 U07.1 Ischemic cardiomyopathy I25.5 Acute kidney injury N17.9 Hyponatremia E87.1 Atherosclerosis of coronary artery of [place] heart without angina pectoris I25.10 Coronary Disease-Associated Artery/Lesion type: unspecified vessel or lesion type Dyslipidemia E78.5 Benign essential HTN I10 Neck mass R22.1 Fever R50.9
--- NOTE | 2021-04-06 18:55 | PC.NURSE ---
TO4/BIS: 1400 1600 1800
--- NOTE | 2021-04-06 18:56 | PC.NURSE ---
Shift Note Frequent safety and comfort rounds continue. Orders and/or nursing care completed as indicated. Patient monitored for response to intervention and treatment. Overall uneventful shift. Patient was proned at 1430 and needs to go supine at 0630 on 04/07/2021. New apodaca was started due to occlusion. Oxygen requirements hav remained the same at 60% FIO2 on a vent. Family has been updated on condition.
--- NOTE | 2021-04-06 20:47 | PC.NURSE ---
TOF 4 BIS 43
[2021-04-06] MEDS: cefTRIAXone 1,000 MG in sodium chloride 0.9% (plus) 100 ML 200 MG IV (21:34)
[2021-04-06] MEDS: cisatracurium 100 MG in sodium chloride 0.9% 50 ML 7.56 MG IV (21:51)
--- NOTE | 2021-04-06 22:04 | P.PN_ITS ---
Subjective Subjective: Interval history: -Patient seen at bedside today -Prone for third session at 1430 p.m. -Noted fever spike 101; sent for pancultures -Urine Mullen has several sediments and has clogged-recommended to change Mullen -Labs and imaging reviewed Medications: Reviewed: Yes Vitals/I&O/Wt Last Vital Signs Temp 97.5 F L 04/06/21 20:00 Pulse 74 04/06/21 21:00 Resp 14 04/06/21 20:00 BP 99/59 04/06/21 21:00 Pulse Ox 96 04/06/21 21:00 04/06/21 04/06/21 04/06/21 06:59 14:59 22:59 Intake Total 196.289 / 940.612 255.257 / 255.257 336.036 / 591.293 Output Total 450 / 900 225 / 225 500 / 725 Balance -253.711 / 40.612 30.257 / 30.257 -163.964 / -133.707 Weight last 48 hrs Weight 186 lb Weight 185 lb Physical Exam Narrative: EXAM NARRATIVE: General: lying in bed, sedated and intubated. HEENT:NCAT, PERRLA, EOMI Neck: Prominent neck swelling noted just left to midline Lungs: Bilateral diffuse crackles Heart: s1/s2, RRR Abd: soft, NT, ND, BS + Normoactive Extremities: No edema EDUCATIONAL FUNDRAISING DIRECTOR: sedated and limited EDUCATIONAL FUNDRAISING DIRECTOR exam possible. SKIN: no rash LDA: # CVC: Left internal jugular vein 04/03/2021 # A line: Right radial arterial line 04/03/2021 Urinary Catheter Management^: Mullen: Cath Placed During This Visit: yes, but has since been removed by the nurse Reason for Continuing Indwelling Catheter: Accurate Measurement of Urinary Output in Critically Ill Patients Urinary Catheter Date of Insertion: 04/06/21 Urinary Catheter Time of Insertion: 11:09 Date Urinary Catheter Removed: 04/06/21 Time Urinary Catheter Discontinued: 11:07 Data : 04/06/21 03:00 04/06/21 03:00 Other Labs: Laboratory Results WBC 7.1 10^3/uL (4.0-10.0) 04/06/21 03:00 Corrected WBC Cancelled 03/27/21 15:45 RBC 3.65 10^6/uL (4.1-5.3) L 04/06/21 03:00 Hgb 12.5 g/dL (11.7-16.6) 04/06/21 03:00 Hct 37.9 % (42.0-52.0) L 04/06/21 03:00 MCV 103.8 fl (80-94) H 04/06/21 03:00 MCH 34.2 pg (28.0-34.0) H 04/06/21 03:00 MCHC 33.0 g/dL (30.0-36.0) 04/06/21 03:00 RDW 12.0 % (12.1-15.1) L 04/06/21 03:00 Plt Count 367 10^3/cmm (130-400) 04/06/21 03:00 MPV 10.5 fL (7.4-10.4) H 04/06/21 03:00 Gran % Cancelled 03/27/21 15:45 Neut % (Auto) 92.3 % 04/06/21 03:00 Lymph % (Auto) 2.4 % 04/06/21 03:00 [place] % (Auto) 2.8 % 04/06/21 03:00 Eos % (Auto) 1.4 % 04/06/21 03:00 Baso % (Auto) 0.1 % 04/06/21 03:00 Neut # (Auto) 6.58 10^3/uL (1.8-7.7) 04/06/21 03:00 Lymph # (Auto) 0.2 10^3/uL (0.8-4.8) L 04/06/21 03:00 [place] # (Auto) 0.2 10^3/uL (0.2-0.9) 04/06/21 03:00 Eos # (Auto) 0.1 10^3/uL (0.0-0.8) 04/06/21 03:00 Baso # (Auto) 0.0 10^3/uL (0.0-0.1) 04/06/21 03:00 Absolute Gran (auto) Cancelled 03/27/21 15:45 Nucleated RBC % (auto) 0 % 04/06/21 03:00 Nucleated RBCs # 0.0 /100WBC 04/06/21 03:00 ESR 57 mm/hr (0-10) H 04/03/21 04:45 D-Dimer 3.10 ug/mIFEU (0-0.59) H 04/05/21 03:57 Specimen Type Arterial 04/06/21 03:00 Sample Site artline 04/06/21 03:00 ABG pH 7.42 (7.35-7.45) 04/06/21 03:00 ABG pCO2 45.6 mmHg (35-45) H 04/06/21 03:00 ABG pO2 56.4 mmHg (80.0-100.0) L 04/06/21 03:00 ABG HCO3 29.5 mmol/L (22-26) H 04/06/21 03:00 ABG O2 Saturation 98.9 04/04/21 03:46 ABG Base Excess 4.2 mmol/L (-2.0-2.0) H 04/06/21 03:00 Hoang Test N/a 04/06/21 03:00 A-a O2 Gradient 43.2 mmHg (5-10) H 04/04/21 03:46 Hematocrit 44.4 % (42-52) 04/06/21 03:00 Hgb O2 Saturation 97.8 % (95-100) 04/04/21 03:46 Carboxyhemoglobin 0.1 %THgb (0.4-20.1) L 04/04/21 03:46 Methemoglobin 1.1 % (0.4-1.5) 04/04/21 03:46 Total Hemoglobin 13.9 g/dL (14-18) L 04/04/21 03:46 Sodium 141.0 mmol/L (131-143) 04/04/21 03:46 Potassium 4.0 mmol/L (3.5-5.0) 04/04/21 03:46 Glucose 141.0 mg/dL (70-115) H 04/04/21 03:46 Ionized Calcium 1.2 mmol/L (1.1-1.4) 04/04/21 03:46 O2 Delivery Device Vent 04/06/21 03:00 O2 Liters/Min 15.0 % 04/02/21 21:49 FiO2 50.0 % 04/06/21 03:00 Tidal Volume 0.50 04/06/21 03:00 PEEP 10.0 cmH20 04/06/21 03:00 Tub Attendant ID Hinja 04/06/21 03:00 Sodium 141 mmol/L (136-145) 04/06/21 03:00 Potassium 4.7 mmol/L (3.5-5.1) 04/06/21 03:00 Chloride 106 mmol/L (98-107) 04/06/21 03:00 Carbon Dioxide 27 mmol/L (22-29) 04/06/21 03:00 Anion Gap 12.7 (5-19) 04/06/21 03:00 BUN 24 mg/dL (8-23) H 04/06/21 03:00 Creatinine 0.7 mg/dL (0.7-1.2) 04/06/21 03:00 GFR Calculation 114.6 mL/min (90-130) 04/06/21 03:00 Glucose 98 mg/dL (65-115) 04/06/21 03:00 Estimat Average Glucose 123 03/28/21 05:50 Hemoglobin A1c 5.9 % (4.0-6.0) 03/28/21 05:50 Calculated Osmolality 296 mOsm/kg (285-295) H 04/06/21 03:00 Lactic Acid 1.8 mmol/L (0.5-2.2) 03/27/21 15:45 Calcium 8.2 mg/dL (8.5-10.5) L 04/06/21 03:00 Phosphorus 3.9 mg/dL (2.5-4.5) 03/28/21 05:50 Magnesium 2.4 mg/dL (1.7-2.3) H 04/06/21 03:00 Iron 32 ug/dL (59-158) L 03/27/21 19:06 TIBC 190 mcg/dl 03/27/21 19:06 % Saturation 16.8 % (20-50) L 03/27/21 19:06 Unsat Iron Binding 158 ug/dL (112-347) 03/27/21 19:06 Ferritin 2350 ng/mL (30-400) H 03/30/21 05:23 Total Bilirubin 0.3 mg/dL (0.15-1.2) 04/06/21 03:00 AST 21 U/L (0-40) 04/06/21 03:00 ALT 19 U/L (0-41) 04/06/21 03:00 Alkaline Phosphatase 69 IU/L (40-130) 04/06/21 03:00 Creatine Kinase 100 U/L (39-308) 03/30/21 05:23 Troponin T Baseline 12 ng/L (0-15) 03/27/21 16:21 Troponin T 120 Minute 12.00 ng/L (0-15) 03/27/21 18:24 Delta Troponin T 0 ABS# (0-10) 03/27/21 18:24 C-Reactive Protein 91.9 mg/L (0.0-4.9) H 04/03/21 04:45 C-Reactive Protein Cancelled 04/03/21 04:45 NT-Pro-B Natriuret Pep 1027 pg/mL (0-125) H 04/03/21 04:45 NT-Pro-B Natriuret Pep Cancelled 04/03/21 04:45 Total Protein 5.9 g/dL (6.6-8.7) L 04/06/21 03:00 Albumin 2.3 g/dL (3.5-5.2) L 04/06/21 03:00 Globulin 3.6 g/dL (1.3-4.6) 04/06/21 03:00 Triglycerides 75 mg/dL (0-150) 03/28/21 05:50 Cholesterol 115 mg/dL (0-200) 03/28/21 05:50 LDL Cholesterol, Calc 67 mg/dL (50-129) 03/28/21 05:50 Total VLDL Cholesterol 15 mg/dL (0-30) 03/28/21 05:50 HDL Cholesterol 33 mg/dL (60-100) L 03/28/21 05:50 Cholesterol/HDL Ratio 3.48 mg/dL (1.0-5.00) 03/28/21 05:50 Vitamin B12 851 pg/mL (232-1245) 04/06/21 03:00 Folate 6.7 ng/mL (4.5-32.2) 04/06/21 03:00 Procalcitonin 0.10 ng/mL (0-0.5) 03/31/21 04:18 TSH 0.89 uIU/mL (0.27-4.20) 03/27/21 19:06 Urine Color Yellow (Yellow) 03/28/21 03:15 Urine Appearance Sl hazy (CLEAR) 03/28/21 03:15 Urine pH 5 (5-7) 03/28/21 03:15 Ur Specific [place] 1.020 (1.005-1.030) 03/28/21 03:15 Urine Protein 3+ (Negative) H 03/28/21 03:15 Urine Glucose (UA) Norm (Normal) 03/28/21 03:15 Urine Ketones Negative (Negative) 03/28/21 03:15 Urine Blood 3+ (Negative) H 03/28/21 03:15 Urine Nitrate Negative (Negative) 03/28/21 03:15 Urine Bilirubin Neg (Negative) 03/28/21 03:15 Urine Urobilinogen Norm mg/dL (Negative) 03/28/21 03:15 Ur Leukocyte Esterase Negative (Negative) 03/28/21 03:15 Urine RBC 0-4 /hpf (0-2) H 03/28/21 03:15 Urine WBC 0-4 /hpf (0-5) H 03/28/21 03:15 Ur Squamous Epith Cells 0-4 /hpf (0-5) H 03/28/21 03:15 Ur Renal Epithelial Cell 0 /hpf 03/28/21 03:15 Calcium Oxalate Crystal 0-4 /hpf H 03/28/21 03:15 Amorphous Sediment 3+ /hpf 03/28/21 03:15 Urine Bacteria Trace /hpf (NONE) 03/28/21 03:15 Coarse Granular Casts 0-4 /lpf H 03/28/21 03:15 Ur Random Sodium 14 mmol/L 03/28/21 03:15 Ur Random Potassium 62 mmol/L 03/28/21 03:15 Ur Random Chloride 12 mmol/L 03/28/21 03:15 Urine Creatinine 160 mg/dL (39-259) 03/28/21 03:15 Impressions Chest CTA 03/28/21 00:03 IMPRESSION: 1. No pulmonary embolism. 2. Hazy bilateral pulmonary opacities which are consistent with COVID-19. 3. Small hiatal hernia. Radiation Dose CTDIVOL = (mGy): DLP = 597.74 (mGy-cm) Head/Neck Ultrasound 04/03/21 17:42 IMPRESSION: Indeterminate left neck mass measuring nearly 3 cm in size. This does not appear to originate from the thyroid. Further evaluation with CT is recommended. Soft Tissue Neck X-Ray 04/03/21 17:42 IMPRESSION: Limited evaluation of left neck mass due to modality and overlying medical equipment. For further evaluation, would recommend CT of the neck. Chest X-Ray 04/06/21 06:00 Impression: 1. No change in bilateral patchy pulmonary opacities. 2. No change in position of multiple tubes. A&P Assessment and plan (1) Acute hypoxemic respiratory failure due to severe acute respiratory syndrome coronavirus 2 (SARS-CoV-2) disease: Status: Acute (2) Acute kidney injury: Status: Acute (3) Hyponatremia: Status: Acute (4) COVID-19: Status: Acute (5) Ischemic cardiomyopathy: Status: Acute (6) Benign essential HTN: Status: Acute #Acute hypoxic respiratory failure secondary to ARDS due to COVID-19 pneumonia #Concern for alcohol withdrawal -as patient takes alcohol every night -Symptoms started 03/20/2021 -Test + 03/26/2021, CT 03/28/2020 were negative for pulmonary embolism -Intubated 04/02/2021-currently on CMV-50%/500/10 and ABG 7.4 45/56/20 9/98% -Sedated with Versed 2 mg/hour, fentanyl 25 MCG/hour, propofol 20 MCG/hour paralyzed -Plan is to prone for third session today afternoon -Patient on Versed and received 1 dose of phenobarbital 130 MCG for possible alcohol withdrawal -DuoNeb every 4 scheduled, Pulmicort 0.5 twice daily scheduled -Dexamethasone 6 mg daily started 03/28/2021 -Completed remdesivir 5-day course-continuing extended 5 more days -On Rocephin and azithromycin for empiric coverage -So far bacterial antigens, MRSA in nares, Legionella urine antigen, sputum culture, blood cultures-all negative; TTE Pending -CRP 91 today -Currently on Lovenox for DVT prophylaxis -1 fever spike 101 -sent for pancultures #Ischemic cardiomyopathy - 12/22/2020 stress test-large area of old myocardial infarction versus scarring -12/22/2020 echo-normal LV cavity size with EF estimated 45% -Aspirin 81/Imdur 30/metoprolol 50/atorvastatin 20 -Keep net negative to even -Lasix as needed # Hypokalemia-resolved -Supplemented-monitor #Deranged LFTs likely secondary to COVID-19 pneumonia-normalized -Monitor LFTs #Neck swelling -Soft tissue neck x-ray limited evaluation of left neck mass due to modality and overlying medical equipment -Solid-appearing left neck mass measuring 2.9 x 2.7 cm of unclear origin, does not appear to originate from the thyroid. - Further evaluation with CT is recommended and patient is stable #Initial 2 days there was difficulty passing NG tube, successfully inserted yesterday and advanced. Continue tube feeding but not proned #Glucose well controlled #GI prophylaxis famotidine #DVT prophylaxis-Lovenox 40 #Full code #Family updated #Prognosis guarded #Patient needs tube feeding-unfortunately NG tube could not be passed initially 2 days in ICU-currently NG tube inserted but patient is in third proning session-recommended to start feeding when not prone Recommendations conveyed to hospitalist, RN, RT taking care of the patient Attestations Medical Necessity Statement*: Acute hypoxic respiratory failure secondary to ARDS due to COVID-19 pneumonia-intubated and mechanically ventilated and currently being proned still requiring high FiO2 Time Spent in Patient Care: Greater than 35 minutes (>than 50% of time spent in counselling and/or direct pt care on unit) . Critical Care Time: The high probability of a clinically significant, sudden or life threatening deterioration of the patient's [pulmonary, neurological] system(s) required my full and direct attention, intervention and personal management. The critical care time is as shown. This time is in addition to time spent performing any reported procedures but includes the following: [x] Data and vital sign review and interpretation [x] Patient assessment, examination and intervention [x] Documentation [x] Medication orders and management Critical Care Time (min): 45 Coding Level of Care Code Established Pt Acute Stopping Builder for Chg Fwd Patient Type Established History Comprehensive Exam Comprehensive Medical Decision Making High Complexity Diagnoses Acute hypoxemic respiratory failure due to severe acute respiratory syndrome cor onavirus 2 (SARS-CoV-2) disease U07.1; J96.01 Acute kidney injury N17.9 Hyponatremia E87.1 COVID-19 U07.1 Ischemic cardiomyopathy I25.5 Benign essential HTN I10 Time Spent (min) 45
[2021-04-07] VITALS (108 sets, daily range): BP systolic 91–133; BP diastolic 54–80; PULSE 60–89; RESP 14–20; TEMP 35.9–36.4; O2SAT 87–96
--- NOTE | 2021-04-07 00:10 | PC.NURSE ---
TOF 4 BIS 47
[2021-04-07] MEDS: propofol 1,000 MG/100 ML INJ 17.18 MG IV ×4 (01:22→20:10)
--- NOTE | 2021-04-07 04:03 | PC.NURSE ---
TOF 4 BIS 46
[2021-04-07] MEDS: ipratropium-albuterol 3 mL Neb INHALATION ×5 (04:29→21:44)
[2021-04-07 04:59] LABS: ABG PH Result 7.34 (7.35-7.45); Arterial Blood Gas Hematocrit 50.6 % (42-52); Base Excess ABG 2.8 mmol/L (-2.0-2.0); Blood Gas Allen Test Pos; Blood Gas Sample Type Arterial; HCO3 ABG 30.2 mmol/L (22-26)
[2021-04-07 05:08] LABS: Blood Gas Vent Mode CMV; Oxygen Device VENT
[2021-04-07 05:10] LABS: Blood Gas Sample Site ART LINE
[2021-04-07 05:17] LABS: Basophils % 0.1 %; Eosinophils # 0.2 10^3/uL (0.0-0.8); Eosinophils % 2.3 %; Hematocrit 38.4 % (42.0-52.0); Hemoglobin 12.3 g/dL (11.7-16.6); Lymphocytes # 0.2 10^3/uL (0.8-4.8); Mean Corpuscular Hemoglobin 34.3 pg (28.0-34.0); Mean Platelet Volume 10.2 fL (7.4-10.4); Monocytes # 0.4 10^3/uL (0.2-0.9); Monocytes % 4.3 %; Neutrophils # 7.26 10^3/uL (1.8-7.7); Neutrophils % 89.6 %; Nucleated Red Blood Cells % 0 %; Platelet Count 341 10^3/cmm (130-400); Red Blood Count 3.59 10^6/uL (4.1-5.3); White Blood Count 8.1 10^3/uL (4.0-10.0)
--- NOTE | 2021-04-07 05:35 | PC.NURSE ---
Patient supined at 0500
[2021-04-07 05:37] LABS: Alanine Aminotransferase 20 U/L (0-41); Albumin Level 2.3 g/dL (3.5-5.2); Alkaline Phosphatase 68 IU/L (40-130); Anion Gap 9.4 (5-19); Aspartate Amino Transferase 25 U/L (0-40); Blood Urea Nitrogen 25 mg/dL (8-23); Carbon Dioxide 31 mmol/L (22-29); Chloride 107 mmol/L (98-107); Globulin 3.6 g/dL (1.3-4.6); Glucose 81 mg/dL (65-115); Osmolality Calculated 299 mOsm/kg (285-295); Potassium 4.4 mmol/L (3.5-5.1); Sodium 143 mmol/L (136-145); Total Bilirubin 0.4 mg/dL (0.15-1.2); Total Protein 5.9 g/dL (6.6-8.7)
[2021-04-07] MEDS: famotidine 20 mg/2 mL INJ IVP ×2 (05:59→17:53)
[2021-04-07] MEDS: dexamethasone 4 mg/mL INJ 6 MG IVP (06:00)
[2021-04-07] MEDS: budesonide 0.5 mg/2 mL Neb INHALATION ×2 (08:16→21:44)
[2021-04-07] MEDS: enoxaparin 40 mg/0.4 mL Syringe SUBCUT (08:51)
[2021-04-07] MEDS: atorvastatin 40 mg Tablet 20 MG PO (08:51)
[2021-04-07] MEDS: zinc gluconate 50 mg Tablet PO (08:52)
[2021-04-07] MEDS: folic acid 1 mg Tablet PO (08:52)
[2021-04-07] MEDS: isosorbide mononitrate ER 30 mg Tablet PO (08:52)
[2021-04-07] MEDS: aspirin 81 mg EC Tablet PO (08:52)
[2021-04-07] MEDS: guaiFENesin 600 mg Tablet 1200 MG PO ×2 (08:52→17:53)
[2021-04-07] MEDS: thiamine 100 mg Tablet PO (08:52)
[2021-04-07] MEDS: metoprolol succinate ER (24 HR) 50 mg Tablet PO (08:52)
[2021-04-07] MEDS: ferrous gluconate 324 mg Tablet PO ×2 (08:52→17:53)
[2021-04-07] MEDS: multivitamin therapeutic Tablet 1 TAB PO (08:52)
[2021-04-07] MEDS: ascorbic acid 500 mg Tablet PO (08:52)
[2021-04-07] MEDS: azithromycin 250 mg Tablet 500 MG PO (08:52)
[2021-04-07] MEDS: benzonatate 100 mg Capsule PO (08:52)
[2021-04-07] MEDS: cisatracurium 100 MG in sodium chloride 0.9% 50 ML IV (12:28)
--- NOTE | 2021-04-07 16:16 | PC.RESP ---
RT Shift Note Frequent safety and respiratory rounds continue. Orders completed as indicated. Patient monitored pre and post treatments throughout shift. Patient tolerated treatments appropriately. Condition did not change. Patient and/or sales support representative educated on respiratory treatment and medications. Patient and/or sales support representative unable to comprehend. Will continue to monitor patient progress.
[2021-04-07] MEDS: dexmedetomidine 400 MCG in sodium chloride 0.9% (100 ml) 100 ML IV (16:55)
--- NOTE | 2021-04-07 18:30 | PC.NURSE ---
Shift Note Frequent safety and comfort rounds continue. Orders and/or nursing care completed as indicated. Patient monitored for response to intervention and treatment(s). Education provided includes medications. . Patient and/or solar sales representative verbalized understanding. TUbe feed Jevity started at 15ml/hr with 120ml H20 flush. Will continue to monitor.
--- NOTE | 2021-04-07 18:42 | P.PN_ITS ---
Subjective Subjective: Interval history: Intubated, weaning down on paralytics, sedation. Vitals/I&O/Wt Last Vital Signs Temp 97.6 F 04/07/21 18:00 Pulse 69 04/07/21 18:00 Resp 17 04/07/21 18:05 BP 95/64 04/07/21 18:00 Pulse Ox 93 04/07/21 18:05 04/07/21 04/07/21 04/07/21 06:59 14:59 22:59 Intake Total 292.676 / 983.969 203.358 / 203.358 260.390 / 463.748 Output Total 200 / 925 1400 / 1400 Balance 92.676 / 58.969 203.358 / 203.358 -1139.610 / -936.252 Weight last 48 hrs Weight 82.6 kg Weight 84.368 kg Physical Exam Const: COMMON NORMALS: no acute distress GENERAL APPEARANCE: patient mechanically ventilated ORIENTATION/CONSCIOUSNESS: Yes awake HENMT: COMMON NORMALS: oropharynx normal FACE & SINUS: other (Left of midline anterior solid neck mass) Neck/C-Spine: COMMON NORMALS: no JVD Resp: COMMON NORMALS: clear to auscultation bilaterally AUSCULTATION: clear to auscultation bilaterally Cardio: COMMON NORMALS: no JVD, regular rhythm, S1 normal heart sound present, S2 normal heart sound present and No murmurs present (Cardio) RHYTHM: regular rhythm HEART SOUNDS: S1 normal heart sound present and S2 normal heart sound present GI: COMMON NORMALS: Normal to inspection, nondistended, normoactive bowel sounds present and Soft to palpation PALPATION: Yes Soft to palpation Extremity: COMMON NORMALS: no joint enlargement and no pedal edema Neuro: COMMON NORMALS: moves all extremities Skin: COMMON NORMALS: no rashes or lesions noted GENERAL SKIN EXAM: no rashes or lesions noted Urinary Catheter Management^: Mullen: Cath Placed During This Visit: yes, but has since been removed by the nurse Reason for Continuing Indwelling Catheter: Accurate Measurement of Urinary Output in Critically Ill Patients Urinary Catheter Date of Insertion: 04/06/21 Urinary Catheter Time of Insertion: 11:09 Date Urinary Catheter Removed: 04/06/21 Time Urinary Catheter Discontinued: 11:07 Data : 04/07/21 04:10 04/07/21 04:10 Micro: Microbiology 04/06/21 10:30 Urine Culture - Preliminary Urine Catheterized 04/06/21 14:10 Blood Culture - Preliminary Blood SPECIMEN COLLECTED 04/06/21 14:05 Blood Culture - Preliminary Blood SPECIMEN COLLECTED A&P Assessment and plan (1) Hypoxemia: After additional proning, weaning trial off paralytics, sedation. Continue treatment for severe COVID-19. Continue remdesivir, Decadron. Prophylactic Lovenox. Repeat sputum culture 04/02 with few mixed upper respiratory maynor. Status: Acute (2) COVID-19: Severe COVID-19 with ARDS. As above. Status: Acute (3) Ischemic cardiomyopathy: Lasix on hold for now as he currently does not appear volume overloaded to me. Monitor for signs of CHF exacerbation. Weight currently lower than usual. Status: Acute (4) Acute kidney injury: Resolved. Status: Acute (5) Hyponatremia: Resolved. Status: Acute (6) Atherosclerosis of coronary artery of [place] heart without angina pectoris: Continue cardiac medications. Status: Acute Qualifiers: Coronary Disease-Associated Artery/Lesion type: unspecified vessel or lesion type Qualified Code(s): I25.10 - Atherosclerotic heart disease of [place] coronary artery without angina pectoris (7) Dyslipidemia: Status: Acute (8) Benign essential HTN: Status: Acute (9) Neck mass: Indeterminate left neck mass measuring nearly 3 cm in size, does not appear to originate from the thyroid. Will need additional evaluation once he is more stable. Consider CT. Could not reach by phone to discuss. Status: Acute (10) Fever: Status: Acute Additional A&P Information Hypokalemia: Replaced. Attestations Medical Necessity Statement*: Continue admission for weaning trial of paralytics, sedation, mechanical ventilatory support with respiratory failure secondary to severe COVID-19. Coding Level of Care Code Acute Implementation Manager for [facility] Fwd Exam Comprehensive Diagnoses Hypoxemia R09.02 COVID-19 U07.1 Ischemic cardiomyopathy I25.5 Acute kidney injury N17.9 Hyponatremia E87.1 Atherosclerosis of coronary artery of [place] heart without angina pectoris I25.10 Coronary Disease-Associated Artery/Lesion type: unspecified vessel or lesion type Dyslipidemia E78.5 Benign essential HTN I10 Neck mass R22.1 Fever R50.9
--- NOTE | 2021-04-07 20:07 | PC.NUTR ---
Tube feeding recommendation: NPO X 5 days. Appears that TF was iniated today per nursing note, however no order noted. Per nursing note, Jevity 1.2 @ 15 ml/hr with 120 ml flush (frequency?) to be started. Recommend to clarify order in EMR, and including frequency of H2O flushes. Continue to recommend to increase by 10 ml/hr q 8 hours to goal rate of 40 ml/hr with 150 ml H2O flushes q 4 hrs to provide 1152 kcal, 53 g protein, 1675 ml H2O. Noted propofol providing additional 454 kcal/day at current rate. Recommend check triglycerides when possible. See full RD assessment for further details.
--- NOTE | 2021-04-07 21:04 | P.PN_ITS ---
Subjective Subjective: Interval history: -Patient seen at bedside today -Completed 3 proning sessions -Plan is to taper off sedation and wake him up -Labs and imaging reviewed Medications: Reviewed: Yes Vitals/I&O/Wt Last Vital Signs Temp 97.6 F 04/07/21 18:00 Pulse 69 04/07/21 18:00 Resp 17 04/07/21 18:05 BP 95/64 04/07/21 18:00 Pulse Ox 93 04/07/21 18:05 04/07/21 04/07/21 04/07/21 06:59 14:59 22:59 Intake Total 292.676 / 983.969 203.358 / 203.358 360.390 / 563.748 Output Total 200 / 925 1400 / 1400 Balance 92.676 / 58.969 203.358 / 203.358 -1039.610 / -836.252 Weight last 48 hrs Weight 182 lb 1.629 oz Weight 186 lb Physical Exam Narrative: EXAM NARRATIVE: General: lying in bed, sedated and intubated. HEENT:NCAT, PERRLA, EOMI Neck: Prominent neck swelling noted just left to midline Lungs: Bilateral diffuse coarse crackles Heart: s1/s2, RRR Abd: soft, NT, ND, BS + Normoactive Extremities: No edema COURSE INSTRUCTOR: sedated and limited COURSE INSTRUCTOR exam possible. SKIN: no rash LDA: # CVC: Left internal jugular vein 04/03/2021 # A line: Right radial arterial line 04/03/2021 Urinary Catheter Management^: Mullen: Cath Placed During This Visit: yes, but has since been removed by the nurse Reason for Continuing Indwelling Catheter: Accurate Measurement of Urinary Output in Critically Ill Patients Urinary Catheter Date of Insertion: 04/06/21 Urinary Catheter Time of Insertion: 11:09 Date Urinary Catheter Removed: 04/06/21 Time Urinary Catheter Discontinued: 11:07 Data : 04/08/21 03:22 04/08/21 03:22 Other Labs: Laboratory Results WBC 8.1 10^3/uL (4.0-10.0) 04/07/21 04:10 Corrected WBC Cancelled 03/27/21 15:45 RBC 3.59 10^6/uL (4.1-5.3) L 04/07/21 04:10 Hgb 12.3 g/dL (11.7-16.6) 04/07/21 04:10 Hct 38.4 % (42.0-52.0) L 04/07/21 04:10 MCV 107.0 fl (80-94) H 04/07/21 04:10 MCH 34.3 pg (28.0-34.0) H 04/07/21 04:10 MCHC 32.0 g/dL (30.0-36.0) 04/07/21 04:10 RDW 12.0 % (12.1-15.1) L 04/07/21 04:10 Plt Count 341 10^3/cmm (130-400) 04/07/21 04:10 MPV 10.2 fL (7.4-10.4) 04/07/21 04:10 Gran % Cancelled 03/27/21 15:45 Neut % (Auto) 89.6 % 04/07/21 04:10 Lymph % (Auto) 3.0 % 04/07/21 04:10 Gregory % (Auto) 4.3 % 04/07/21 04:10 Eos % (Auto) 2.3 % 04/07/21 04:10 Baso % (Auto) 0.1 % 04/07/21 04:10 Neut # (Auto) 7.26 10^3/uL (1.8-7.7) 04/07/21 04:10 Lymph # (Auto) 0.2 10^3/uL (0.8-4.8) L 04/07/21 04:10 Gregory # (Auto) 0.4 10^3/uL (0.2-0.9) 04/07/21 04:10 Eos # (Auto) 0.2 10^3/uL (0.0-0.8) 04/07/21 04:10 Baso # (Auto) 0.0 10^3/uL (0.0-0.1) 04/07/21 04:10 Absolute Gran (auto) Cancelled 03/27/21 15:45 Nucleated RBC % (auto) 0 % 04/07/21 04:10 Nucleated RBCs # 0.0 /100WBC 04/07/21 04:10 ESR 57 mm/hr (0-10) H 04/03/21 04:45 D-Dimer 3.10 ug/mIFEU (0-0.59) H 04/05/21 03:57 Specimen Type Arterial 04/07/21 04:37 Sample Site Art line 04/07/21 04:37 ABG pH 7.34 (7.35-7.45) L 04/07/21 04:37 ABG pCO2 56.0 mmHg (35-45) H 04/07/21 04:37 ABG pO2 161.0 mmHg (80.0-100.0) H 04/07/21 04:37 ABG HCO3 30.2 mmol/L (22-26) H 04/07/21 04:37 ABG O2 Saturation 98.9 04/04/21 03:46 ABG Base Excess 2.8 mmol/L (-2.0-2.0) H 04/07/21 04:37 Hoang Test Pos 04/07/21 04:37 A-a O2 Gradient 43.2 mmHg (5-10) H 04/04/21 03:46 Hematocrit 50.6 % (42-52) 04/07/21 04:37 Hgb O2 Saturation 97.8 % (95-100) 04/04/21 03:46 Carboxyhemoglobin 0.1 %THgb (0.4-20.1) L 04/04/21 03:46 Methemoglobin 1.1 % (0.4-1.5) 04/04/21 03:46 Total Hemoglobin 13.9 g/dL (14-18) L 04/04/21 03:46 Sodium 141.0 mmol/L (131-143) 04/04/21 03:46 Potassium 4.0 mmol/L (3.5-5.0) 04/04/21 03:46 Glucose 141.0 mg/dL (70-115) H 04/04/21 03:46 Ionized Calcium 1.2 mmol/L (1.1-1.4) 04/04/21 03:46 Respiration Rate 14.0 % 04/07/21 04:37 O2 Delivery Device Vent 04/07/21 04:37 O2 Liters/Min 15.0 % 04/02/21 21:49 Vent Mode Cmv 04/07/21 04:37 Mechanical Rate 14.0 04/07/21 04:37 FiO2 55.0 % 04/07/21 04:37 Tidal Volume .500 04/07/21 04:37 PEEP 10.0 cmH20 04/07/21 04:37 Specimen Drawn By Chandni 04/07/21 04:37 Store Sales Consultant NEDA Montemayor 04/07/21 04:37 Sodium 143 mmol/L (136-145) 04/07/21 04:10 Potassium 4.4 mmol/L (3.5-5.1) 04/07/21 04:10 Chloride 107 mmol/L (98-107) 04/07/21 04:10 Carbon Dioxide 31 mmol/L (22-29) H 04/07/21 04:10 Anion Gap 9.4 (5-19) 04/07/21 04:10 BUN 25 mg/dL (8-23) H 04/07/21 04:10 Creatinine 0.6 mg/dL (0.7-1.2) L 04/07/21 04:10 GFR Calculation 137.0 mL/min (90-130) H 04/07/21 04:10 Glucose 81 mg/dL (65-115) 04/07/21 04:10 Estimat Average Glucose 123 03/28/21 05:50 Hemoglobin A1c 5.9 % (4.0-6.0) 03/28/21 05:50 Calculated Osmolality 299 mOsm/kg (285-295) H 04/07/21 04:10 Lactic Acid 1.8 mmol/L (0.5-2.2) 03/27/21 15:45 Calcium 8.0 mg/dL (8.5-10.5) L 04/07/21 04:10 Phosphorus 3.9 mg/dL (2.5-4.5) 03/28/21 05:50 Magnesium 2.4 mg/dL (1.7-2.3) H 04/06/21 03:00 Iron 32 ug/dL (59-158) L 03/27/21 19:06 TIBC 190 mcg/dl 03/27/21 19:06 % Saturation 16.8 % (20-50) L 03/27/21 19:06 Unsat Iron Binding 158 ug/dL (112-347) 03/27/21 19:06 Ferritin 2350 ng/mL (30-400) H 03/30/21 05:23 Total Bilirubin 0.4 mg/dL (0.15-1.2) 04/07/21 04:10 AST 25 U/L (0-40) 04/07/21 04:10 ALT 20 U/L (0-41) 04/07/21 04:10 Alkaline Phosphatase 68 IU/L (40-130) 04/07/21 04:10 Creatine Kinase 100 U/L (39-308) 03/30/21 05:23 Troponin T Baseline 12 ng/L (0-15) 03/27/21 16:21 Troponin T 120 Minute 12.00 ng/L (0-15) 03/27/21 18:24 Delta Troponin T 0 ABS# (0-10) 03/27/21 18:24 C-Reactive Protein 91.9 mg/L (0.0-4.9) H 04/03/21 04:45 C-Reactive Protein Cancelled 04/03/21 04:45 NT-Pro-B Natriuret Pep 1027 pg/mL (0-125) H 04/03/21 04:45 NT-Pro-B Natriuret Pep Cancelled 04/03/21 04:45 Total Protein 5.9 g/dL (6.6-8.7) L 04/07/21 04:10 Albumin 2.3 g/dL (3.5-5.2) L 04/07/21 04:10 Globulin 3.6 g/dL (1.3-4.6) 04/07/21 04:10 Triglycerides 75 mg/dL (0-150) 03/28/21 05:50 Cholesterol 115 mg/dL (0-200) 03/28/21 05:50 LDL Cholesterol, Calc 67 mg/dL (50-129) 03/28/21 05:50 Total VLDL Cholesterol 15 mg/dL (0-30) 03/28/21 05:50 HDL Cholesterol 33 mg/dL (60-100) L 03/28/21 05:50 Cholesterol/HDL Ratio 3.48 mg/dL (1.0-5.00) 03/28/21 05:50 Vitamin B12 851 pg/mL (232-1245) 04/06/21 03:00 Folate 6.7 ng/mL (4.5-32.2) 04/06/21 03:00 Procalcitonin 0.10 ng/mL (0-0.5) 03/31/21 04:18 TSH 0.89 uIU/mL (0.27-4.20) 03/27/21 19:06 Urine Color Yellow (Yellow) 03/28/21 03:15 Urine Appearance Sl hazy (CLEAR) 03/28/21 03:15 Urine pH 5 (5-7) 03/28/21 03:15 Ur Specific Clarissa 1.020 (1.005-1.030) 03/28/21 03:15 Urine Protein 3+ (Negative) H 03/28/21 03:15 Urine Glucose (UA) Norm (Normal) 03/28/21 03:15 Urine Ketones Negative (Negative) 03/28/21 03:15 Urine Blood 3+ (Negative) H 03/28/21 03:15 Urine Nitrate Negative (Negative) 03/28/21 03:15 Urine Bilirubin Neg (Negative) 03/28/21 03:15 Urine Urobilinogen Norm mg/dL (Negative) 03/28/21 03:15 Ur Leukocyte Esterase Negative (Negative) 03/28/21 03:15 Urine RBC 0-4 /hpf (0-2) H 03/28/21 03:15 Urine WBC 0-4 /hpf (0-5) H 03/28/21 03:15 Ur Squamous Epith Cells 0-4 /hpf (0-5) H 03/28/21 03:15 Ur Renal Epithelial Cell 0 /hpf 03/28/21 03:15 Calcium Oxalate Crystal 0-4 /hpf H 03/28/21 03:15 Amorphous Sediment 3+ /hpf 03/28/21 03:15 Urine Bacteria Trace /hpf (NONE) 03/28/21 03:15 Coarse Granular Casts 0-4 /lpf H 03/28/21 03:15 Ur Random Sodium 14 mmol/L 03/28/21 03:15 Ur Random Potassium 62 mmol/L 03/28/21 03:15 Ur Random Chloride 12 mmol/L 03/28/21 03:15 Urine Creatinine 160 mg/dL (39-259) 03/28/21 03:15 Impressions Chest CTA 03/28/21 00:03 IMPRESSION: 1. No pulmonary embolism. 2. Hazy bilateral pulmonary opacities which are consistent with COVID-19. 3. Small hiatal hernia. Radiation Dose CTDIVOL = (mGy): DLP = 597.74 (mGy-cm) Head/Neck Ultrasound 04/03/21 17:42 IMPRESSION: Indeterminate left neck mass measuring nearly 3 cm in size. This does not appear to originate from the thyroid. Further evaluation with CT is recommended. Soft Tissue Neck X-Ray 04/03/21 17:42 IMPRESSION: Limited evaluation of left neck mass due to modality and overlying medical equipment. For further evaluation, would recommend CT of the neck. Chest X-Ray 04/06/21 06:00 Impression: 1. No change in bilateral patchy pulmonary opacities. 2. No change in position of multiple tubes. Micro: Microbiology 04/06/21 10:30 Urine Culture - Preliminary Urine Catheterized 04/06/21 14:10 Blood Culture - Preliminary Blood SPECIMEN COLLECTED 04/06/21 14:05 Blood Culture - Preliminary Blood SPECIMEN COLLECTED A&P Assessment and plan (1) Acute hypoxemic respiratory failure due to severe acute respiratory syndrome coronavirus 2 (SARS-CoV-2) disease: Status: Acute (2) Acute kidney injury: Status: Acute (3) Hyponatremia: Status: Acute (4) COVID-19: Status: Acute (5) Ischemic cardiomyopathy: Status: Acute (6) Benign essential HTN: Status: Acute #Acute hypoxic respiratory failure secondary to ARDS due to COVID-19 pneumonia #Concern for alcohol withdrawal -as patient takes alcohol every night -Symptoms started 03/20/2021 -Test + 03/26/2021, CT 03/28/2020 were negative for pulmonary embolism -Intubated 04/02/2021-currently on CMV-14/100/10/50 5% and ABG 7.3 4/56/161/30 -Off paralytic and Versed, tapering of fentanyl, propofol and if needed start on Precedex, Ativan as needed for withdrawal -Started on Seroquel 50 mg twice daily -Completed 3 proning sessions -Patient on Versed and received 1 dose of phenobarbital 130 MCG for possible alcohol withdrawal -DuoNeb every 4 scheduled, Pulmicort 0.5 twice daily scheduled -Dexamethasone 6 mg daily started 03/28/2021 -Completed remdesivir 5-day course-continuing extended 5 more days -On Rocephin and azithromycin for empiric coverage -So far bacterial antigens, MRSA in nares, Legionella urine antigen, sputum culture, blood cultures-all negative; TTE Pending -CRP 91 today -Currently on Lovenox for DVT prophylaxis -1 fever spike 101 -on 04/06/2021-cultures 04/06/2021-negative so far #Ischemic cardiomyopathy - 12/22/2020 stress test-large area of old myocardial infarction versus scarring -12/22/2020 echo-normal LV cavity size with EF estimated 45% -Aspirin 81/Imdur 30/metoprolol 50/atorvastatin 20 -Keep net negative to even -Lasix as needed # Hypokalemia-resolved -Supplemented-monitor #Deranged LFTs likely secondary to COVID-19 pneumonia-normalized -Monitor LFTs #Neck swelling -Soft tissue neck x-ray limited evaluation of left neck mass due to modality and overlying medical equipment -Solid-appearing left neck mass measuring 2.9 x 2.7 cm of unclear origin, does not appear to originate from the thyroid. - Further evaluation with CT is recommended and patient is stable #Initial 2 days there was difficulty passing NG tube, later successfully inserted and advanced. Continue tube feeding but not proned #Glucose well controlled #GI prophylaxis famotidine #DVT prophylaxis-Lovenox 40 #Full code #Family updated #Prognosis guarded Recommendations conveyed to hospitalist, RN, RT taking care of the patient Attestations Medical Necessity Statement*: Acute hypoxic respiratory failure secondary to ARDS due to COVID-19 pneumonia-intubated and mechanically ventilated and currently being proned still requiring high FiO2 Time Spent in Patient Care: Greater than 35 minutes (>than 50% of time spent in counselling and/or direct pt care on unit) . Critical Care Time: The high probability of a clinically significant, sudden or life threatening deterioration of the patient's [pulmonary, neurological] system(s) required my full and direct attention, intervention and personal management. The critical care time is as shown. 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
[2021-04-07] MEDS: cefTRIAXone 1,000 MG in sodium chloride 0.9% (plus) 100 ML 200 MG IV (21:50)
--- NOTE | 2021-04-07 23:23 | PC.NURSE ---
Tube feeding held, due to residual of 150mL.
[2021-04-08] VITALS (82 sets, daily range): BP systolic 97–160; BP diastolic 68–102; PULSE 53–99; RESP 14–20; TEMP 36.5; O2SAT 88–98
[2021-04-08] MEDS: ipratropium-albuterol 3 mL Neb INHALATION ×7 (01:24→23:55)
[2021-04-08] MEDS: propofol 1,000 MG/100 ML INJ 17.18 MG IV ×3 (01:52→17:29)
[2021-04-08 04:10] LABS: Basophils % 0.2 %; Eosinophils # 0.1 10^3/uL (0.0-0.8); Eosinophils % 1.3 %; Hematocrit 36.8 % (42.0-52.0); Lymphocytes # 0.2 10^3/uL (0.8-4.8); Mean Corpuscular HGB Conc 32.6 g/dL (30.0-36.0); Mean Corpuscular Hemoglobin 34.4 pg (28.0-34.0); Mean Corpuscular Volume 105.4 fl (80-94); Mean Platelet Volume 10.3 fL (7.4-10.4); Monocytes # 0.5 10^3/uL (0.2-0.9); Monocytes % 5.4 %; Neutrophils # 8.08 10^3/uL (1.8-7.7); Neutrophils % 90.2 %; Nucleated Red Blood Cells % 0 %; Platelet Count 321 10^3/cmm (130-400); Red Blood Count 3.49 10^6/uL (4.1-5.3); Red Cell Distribution Width 12.2 % (12.1-15.1)
[2021-04-08 04:41] LABS: Alanine Aminotransferase 25 U/L (0-41); Albumin Level 2.4 g/dL (3.5-5.2); Alkaline Phosphatase 68 IU/L (40-130); Blood Urea Nitrogen 26 mg/dL (8-23); Calcium 7.8 mg/dL (8.5-10.5); Carbon Dioxide 29 mmol/L (22-29); Chloride 105 mmol/L (98-107); Globulin 2.9 g/dL (1.3-4.6); Glucose 101 mg/dL (65-115); Osmolality Calculated 297 mOsm/kg (285-295); Sodium 141 mmol/L (136-145); Total Bilirubin 0.5 mg/dL (0.15-1.2); Total Protein 5.3 g/dL (6.6-8.7)
[2021-04-08 04:46] LABS: Anion Gap 11.6 (5-19); Aspartate Amino Transferase 31 U/L (0-40); Potassium 4.6 mmol/L (3.5-5.1)
[2021-04-08] MEDS: famotidine 20 mg/2 mL INJ IVP ×2 (06:16→17:29)
[2021-04-08] MEDS: dexamethasone 4 mg/mL INJ 6 MG IVP (06:16)
--- NOTE | 2021-04-08 06:21 | PC.NURSE ---
Shift Note Frequent safety and comfort rounds continue. Orders and/or nursing care completed as indicated. Patient monitored for response to intervention and treatment(s). Education provided includes pain management. Patient and/or telecommunications sales representative reinforcement needed. Will continue to monitor.
[2021-04-08] MEDS: dexmedetomidine 400 MCG in sodium chloride 0.9% (100 ml) 100 ML IV (07:24)
--- NOTE | 2021-04-08 07:54 | XRR_ITS ---
PROCEDURE INFORMATION: Exam: XR Chest Exam date and time: 04/08/2021 7:54 AM Age: 60 years old Clinical indication: Shortness of breath; Additional info: Pneumonia TECHNIQUE: Imaging protocol: XR of the chest. Views: Frontal portable semiupright view of the chest. COMPARISON: CR XR chest 1V portable [id number] 04/06/2021 5:39 AM FINDINGS: Tubes, catheters and devices: The endotracheal tube tip is approximately 7 cm above the can. The feeding tube enters the stomach with the tip off the limits of the image. EKG leads are present overlying the chest. Lungs: Increased heterogeneous air space opacities in the lateral left mid-lower lung zone and right a left; airspace opacities are stable elsewhere. The pulmonary vasculature is obscured by increased lung attenuation. Pleural spaces: No pleural effusion. No pneumothorax. Heart/Mediastinum: The heart is normal in size and contour. Mediastinum: Stable. Vasculature: The left internal jugular venous catheter tip is in the mid SVC. Bones/joints: Stable. XR/XR chest 1V portable [id number] IMPRESSION: Increased bilateral pulmonary infiltrates, progressive pneumonitis not excluded. Clinical correlation is recommended.
[2021-04-08] MEDS: budesonide 0.5 mg/2 mL Neb INHALATION ×2 (08:20→19:57)
[2021-04-08] MEDS: thiamine 100 mg Tablet PO (08:40)
[2021-04-08] MEDS: multivitamin therapeutic Tablet 1 TAB PO (08:40)
[2021-04-08] MEDS: azithromycin 250 mg Tablet 500 MG PO (08:40)
[2021-04-08] MEDS: atorvastatin 40 mg Tablet 20 MG PO (08:40)
[2021-04-08] MEDS: zinc gluconate 50 mg Tablet PO (08:40)
[2021-04-08] MEDS: enoxaparin 40 mg/0.4 mL Syringe SUBCUT (08:41)
[2021-04-08] MEDS: aspirin 81 mg EC Tablet PO (08:41)
[2021-04-08] MEDS: ferrous gluconate 324 mg Tablet PO ×2 (08:41→17:27)
[2021-04-08] MEDS: guaiFENesin 600 mg Tablet 1200 MG PO ×2 (08:41→17:27)
[2021-04-08] MEDS: metoprolol succinate ER (24 HR) 50 mg Tablet PO (08:41)
[2021-04-08] MEDS: folic acid 1 mg Tablet PO (08:41)
[2021-04-08] MEDS: ascorbic acid 500 mg Tablet PO (08:41)
[2021-04-08] MEDS: isosorbide mononitrate ER 30 mg Tablet PO (08:41)
[2021-04-08] MEDS: quetiapine 25 mg Tablet 50 MG PO ×2 (08:41→17:27)
[2021-04-08] MEDS: benzonatate 100 mg Capsule PO (08:41)
[2021-04-08 09:42] LABS: ABG PCO2 40.7 mmHg (35-45); ABG PH Result 7.43 (7.35-7.45); Arterial Blood Gas Hematocrit 55.3 % (42-52); Base Excess ABG 2.6 mmol/L (-2.0-2.0); Blood Gas Allen Test Pos; Blood Gas Sample Site Not specified; Blood Gas Sample Type Arterial; HCO3 ABG 27.2 mmol/L (22-26); PO2 ABG 64.3 mmHg (80.0-100.0)
[2021-04-08 13:23] LABS: Oxygen Device VENT
--- NOTE | 2021-04-08 16:23 | PM.PN ---
Subjective Subjective: Interval history: Intubated, sedated. Wean down sedation as tolerating. Vitals/I&O/Wt Last Vital Signs Temp 97.7 F 04/08/21 14:00 Pulse 75 04/08/21 15:15 Resp 19 H 04/08/21 15:15 BP 143/87 04/08/21 14:00 Pulse Ox 95 04/08/21 15:15 04/08/21 04/08/21 04/08/21 06:59 14:59 22:59 Intake Total 297.926 / 961.674 207.975 / 207.975 Balance 297.926 / -438.326 207.975 / 207.975 Weight last 48 hrs Weight 83.943 kg Weight 82.6 kg Physical Exam Const: COMMON NORMALS: no acute distress GENERAL APPEARANCE: patient mechanically ventilated HENMT: COMMON NORMALS: oropharynx normal FACE & SINUS: other (Left of midline anterior solid neck mass) Neck/C-Spine: COMMON NORMALS: no JVD Resp: COMMON NORMALS: clear to auscultation bilaterally AUSCULTATION: clear to auscultation bilaterally Cardio: COMMON NORMALS: no JVD, regular rhythm, S1 normal heart sound present, S2 normal heart sound present and No murmurs present (Cardio) RHYTHM: regular rhythm HEART SOUNDS: S1 normal heart sound present and S2 normal heart sound present GI: COMMON NORMALS: Normal to inspection, nondistended, normoactive bowel sounds present and Soft to palpation PALPATION: Yes Soft to palpation Extremity: COMMON NORMALS: no joint enlargement and no pedal edema Skin: COMMON NORMALS: no rashes or lesions noted GENERAL SKIN EXAM: no rashes or lesions noted Urinary Catheter Management^: Mullen: Cath Placed During This Visit: yes, but has since been removed by the nurse Reason for Continuing Indwelling Catheter: Accurate Measurement of Urinary Output in Critically Ill Patients Urinary Catheter Date of Insertion: 04/06/21 Urinary Catheter Time of Insertion: 11:09 Date Urinary Catheter Removed: 04/06/21 Time Urinary Catheter Discontinued: 11:07 Data : 04/08/21 03:22 04/08/21 03:22 Micro: Microbiology 04/06/21 10:30 Urine Culture - Final Urine Catheterized 04/06/21 14:10 Blood Culture - Preliminary Blood NEGATIVE TO DATE 04/06/21 14:05 Blood Culture - Preliminary Blood NEGATIVE TO DATE A&P Assessment and plan (1) Hypoxemia: Hypoxic respite failure with ARDS secondary to severe COVID-19. Continue to wean sedation. Mechanical ventilatory support. Plan to assess for possibility of extubation. Continue treatment for severe COVID-19. Completed remdesivir. Continue Decadron. Prophylactic Lovenox. Repeat sputum culture 04/02 with few mixed upper respiratory maynor. Fever on 04/06. Blood culture and sputum culture repeated. Continue ceftriaxone, azithromycin. Urine culture without growth. Possibly related to Mullen obstructed with sediment at that time. Exchanged. Status: Acute (2) COVID-19: Severe COVID-19 with ARDS. As above. Status: Acute (3) Ischemic cardiomyopathy: Lasix on hold for now as he currently does not appear volume overloaded to me. Monitor for signs of CHF exacerbation. Weight currently lower than usual. Status: Acute (4) Acute kidney injury: Resolved. Status: Acute (5) Hyponatremia: Resolved. Status: Acute (6) Atherosclerosis of coronary artery of [place] heart without angina pectoris: Continue cardiac medications. Status: Acute Qualifiers: Coronary Disease-Associated Artery/Lesion type: unspecified vessel or lesion type Qualified Code(s): I25.10 - Atherosclerotic heart disease of [place] coronary artery without angina pectoris (7) Dyslipidemia: Status: Acute (8) Benign essential HTN: Status: Acute (9) Neck mass: Indeterminate left neck mass measuring nearly 3 cm in size, does not appear to originate from the thyroid. Will need additional evaluation once he is more stable. Consider CT. Status: Acute (10) Fever: Status: Acute Additional A&P Information Hypokalemia: Replaced. Attestations Medical Necessity Statement*: Continue admission for weaning of sedation, mechanical ventilatory support after proning secondary to severe COVID-19, ARDS. 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
--- NOTE | 2021-04-08 19:48 | PM.PN ---
Subjective Subjective: Interval history: - Patient seen at bedside today -Continue with awakening trial- -If no response by tomorrow-we will get CT head -Labs and imaging reviewed Medications: Reviewed: Yes Vitals/I&O/Wt Last Vital Signs Temp 97.7 F 04/08/21 18:00 Pulse 75 04/08/21 18:00 Resp 20 H 04/08/21 18:00 BP 143/87 04/08/21 18:00 Pulse Ox 94 04/08/21 18:00 04/08/21 04/08/21 04/08/21 06:59 14:59 22:59 Intake Total 297.926 / 961.674 407.975 / 407.975 140.33 / 548.305 Output Total 500 / 500 Balance 297.926 / -438.326 407.975 / 407.975 -359.67 / 48.305 Weight last 48 hrs Weight 185 lb 1 oz Weight 182 lb 1.629 oz Physical Exam Narrative: EXAM NARRATIVE: General: lying in bed, sedated and intubated. HEENT:NCAT, PERRLA, EOMI Neck: Prominent neck swelling noted just left to midline Lungs: Bilateral diffuse coarse crackles Heart: s1/s2, RRR Abd: soft, NT, ND, BS + Normoactive Extremities: No edema DARK ROOM ATTENDANT: sedated and limited DARK ROOM ATTENDANT exam possible. SKIN: no rash LDA: # CVC: Left internal jugular vein 04/03/2021 # A line: Right radial arterial line 04/03/2021 Urinary Catheter Management^: Mullen: Cath Placed During This Visit: yes, but has since been removed by the nurse Reason for Continuing Indwelling Catheter: Accurate Measurement of Urinary Output in Critically Ill Patients Urinary Catheter Date of Insertion: 04/06/21 Urinary Catheter Time of Insertion: 11:09 Date Urinary Catheter Removed: 04/06/21 Time Urinary Catheter Discontinued: 11:07 Data : 04/08/21 03:22 04/08/21 03:22 Other Labs: Laboratory Results WBC 9.0 10^3/uL (4.0-10.0) 04/08/21 03:22 Corrected WBC Cancelled 03/27/21 15:45 RBC 3.49 10^6/uL (4.1-5.3) L 04/08/21 03:22 Hgb 12.0 g/dL (11.7-16.6) 04/08/21 03:22 Hct 36.8 % (42.0-52.0) L 04/08/21 03:22 MCV 105.4 fl (80-94) H 04/08/21 03:22 MCH 34.4 pg (28.0-34.0) H 04/08/21 03:22 MCHC 32.6 g/dL (30.0-36.0) 04/08/21 03:22 RDW 12.2 % (12.1-15.1) 04/08/21 03:22 Plt Count 321 10^3/cmm (130-400) 04/08/21 03:22 MPV 10.3 fL (7.4-10.4) 04/08/21 03:22 Gran % Cancelled 03/27/21 15:45 Neut % (Auto) 90.2 % 04/08/21 03:22 Lymph % (Auto) 2.0 % 04/08/21 03:22 [place] % (Auto) 5.4 % 04/08/21 03:22 Eos % (Auto) 1.3 % 04/08/21 03:22 Baso % (Auto) 0.2 % 04/08/21 03:22 Neut # (Auto) 8.08 10^3/uL (1.8-7.7) H 04/08/21 03:22 Lymph # (Auto) 0.2 10^3/uL (0.8-4.8) L 04/08/21 03:22 [place] # (Auto) 0.5 10^3/uL (0.2-0.9) 04/08/21 03:22 Eos # (Auto) 0.1 10^3/uL (0.0-0.8) 04/08/21 03:22 Baso # (Auto) 0.0 10^3/uL (0.0-0.1) 04/08/21 03:22 Absolute Gran (auto) Cancelled 03/27/21 15:45 Nucleated RBC % (auto) 0 % 04/08/21 03:22 Nucleated RBCs # 0.0 /100WBC 04/08/21 03:22 ESR 57 mm/hr (0-10) H 04/03/21 04:45 D-Dimer 3.10 ug/mIFEU (0-0.59) H 04/05/21 03:57 Specimen Type Arterial 04/08/21 09:29 Sample Site Not specified 04/08/21 09:29 ABG pH 7.43 (7.35-7.45) 04/08/21 09:29 ABG pCO2 40.7 mmHg (35-45) 04/08/21 09:29 ABG pO2 64.3 mmHg (80.0-100.0) L 04/08/21 09:29 ABG HCO3 27.2 mmol/L (22-26) H 04/08/21 09:29 ABG O2 Saturation 98.9 04/04/21 03:46 ABG Base Excess 2.6 mmol/L (-2.0-2.0) H 04/08/21 09:29 Hoang Test Pos 04/08/21 09:29 A-a O2 Gradient 43.2 mmHg (5-10) H 04/04/21 03:46 Hematocrit 55.3 % (42-52) H 04/08/21 09:29 Hgb O2 Saturation 97.8 % (95-100) 04/04/21 03:46 Carboxyhemoglobin 0.1 %THgb (0.4-20.1) L 04/04/21 03:46 Methemoglobin 1.1 % (0.4-1.5) 04/04/21 03:46 Total Hemoglobin 13.9 g/dL (14-18) L 04/04/21 03:46 Sodium 141.0 mmol/L (131-143) 04/04/21 03:46 Potassium 4.0 mmol/L (3.5-5.0) 04/04/21 03:46 Glucose 141.0 mg/dL (70-115) H 04/04/21 03:46 Ionized Calcium 1.2 mmol/L (1.1-1.4) 04/04/21 03:46 Respiration Rate 14.0 % 04/07/21 04:37 O2 Delivery Device Vent 04/08/21 09:29 O2 Liters/Min 15.0 % 04/02/21 21:49 Vent Mode Cmv 04/07/21 04:37 Mechanical Rate 14.0 04/07/21 04:37 FiO2 55.0 % 04/07/21 04:37 Tidal Volume .500 04/07/21 04:37 PEEP 10.0 cmH20 04/07/21 04:37 Specimen Drawn By Chandni 04/07/21 04:37 Loom Setter Fourdrinier ID jmn 04/08/21 09:29 Sodium 141 mmol/L (136-145) 04/08/21 03:22 Potassium 4.6 mmol/L (3.5-5.1) 04/08/21 03:22 Chloride 105 mmol/L (98-107) 04/08/21 03:22 Carbon Dioxide 29 mmol/L (22-29) 04/08/21 03:22 Anion Gap 11.6 (5-19) 04/08/21 03:22 BUN 26 mg/dL (8-23) H 04/08/21 03:22 Creatinine 0.5 mg/dL (0.7-1.2) L 04/08/21 03:22 GFR Calculation 169.0 mL/min (90-130) H 04/08/21 03:22 Glucose 101 mg/dL (65-115) 04/08/21 03:22 Estimat Average Glucose 123 03/28/21 05:50 Hemoglobin A1c 5.9 % (4.0-6.0) 03/28/21 05:50 Calculated Osmolality 297 mOsm/kg (285-295) H 04/08/21 03:22 Lactic Acid 1.8 mmol/L (0.5-2.2) 03/27/21 15:45 Calcium 7.8 mg/dL (8.5-10.5) L 04/08/21 03:22 Phosphorus 3.9 mg/dL (2.5-4.5) 03/28/21 05:50 Magnesium 2.4 mg/dL (1.7-2.3) H 04/06/21 03:00 Iron 32 ug/dL (59-158) L 03/27/21 19:06 TIBC 190 mcg/dl 03/27/21 19:06 % Saturation 16.8 % (20-50) L 03/27/21 19:06 Unsat Iron Binding 158 ug/dL (112-347) 03/27/21 19:06 Ferritin 2350 ng/mL (30-400) H 03/30/21 05:23 Total Bilirubin 0.5 mg/dL (0.15-1.2) 04/08/21 03:22 AST 31 U/L (0-40) 04/08/21 03:22 ALT 25 U/L (0-41) 04/08/21 03:22 Alkaline Phosphatase 68 IU/L (40-130) 04/08/21 03:22 Creatine Kinase 100 U/L (39-308) 03/30/21 05:23 Troponin T Baseline 12 ng/L (0-15) 03/27/21 16:21 Troponin T 120 Minute 12.00 ng/L (0-15) 03/27/21 18:24 Delta Troponin T 0 ABS# (0-10) 03/27/21 18:24 C-Reactive Protein 91.9 mg/L (0.0-4.9) H 04/03/21 04:45 C-Reactive Protein Cancelled 04/03/21 04:45 NT-Pro-B Natriuret Pep 1027 pg/mL (0-125) H 04/03/21 04:45 NT-Pro-B Natriuret Pep Cancelled 04/03/21 04:45 Total Protein 5.3 g/dL (6.6-8.7) L 04/08/21 03:22 Albumin 2.4 g/dL (3.5-5.2) L 04/08/21 03:22 Globulin 2.9 g/dL (1.3-4.6) 04/08/21 03:22 Triglycerides 75 mg/dL (0-150) 03/28/21 05:50 Cholesterol 115 mg/dL (0-200) 03/28/21 05:50 LDL Cholesterol, Calc 67 mg/dL (50-129) 03/28/21 05:50 Total VLDL Cholesterol 15 mg/dL (0-30) 03/28/21 05:50 HDL Cholesterol 33 mg/dL (60-100) L 03/28/21 05:50 Cholesterol/HDL Ratio 3.48 mg/dL (1.0-5.00) 03/28/21 05:50 Vitamin B12 851 pg/mL (232-1245) 04/06/21 03:00 Folate 6.7 ng/mL (4.5-32.2) 04/06/21 03:00 Procalcitonin 0.10 ng/mL (0-0.5) 03/31/21 04:18 TSH 0.89 uIU/mL (0.27-4.20) 03/27/21 19:06 Urine Color Yellow (Yellow) 03/28/21 03:15 Urine Appearance Sl hazy (CLEAR) 03/28/21 03:15 Urine pH 5 (5-7) 03/28/21 03:15 Ur Specific [place] 1.020 (1.005-1.030) 03/28/21 03:15 Urine Protein 3+ (Negative) H 03/28/21 03:15 Urine Glucose (UA) Norm (Normal) 03/28/21 03:15 Urine Ketones Negative (Negative) 03/28/21 03:15 Urine Blood 3+ (Negative) H 03/28/21 03:15 Urine Nitrate Negative (Negative) 03/28/21 03:15 Urine Bilirubin Neg (Negative) 03/28/21 03:15 Urine Urobilinogen Norm mg/dL (Negative) 03/28/21 03:15 Ur Leukocyte Esterase Negative (Negative) 03/28/21 03:15 Urine RBC 0-4 /hpf (0-2) H 03/28/21 03:15 Urine WBC 0-4 /hpf (0-5) H 03/28/21 03:15 Ur Squamous Epith Cells 0-4 /hpf (0-5) H 03/28/21 03:15 Ur Renal Epithelial Cell 0 /hpf 03/28/21 03:15 Calcium Oxalate Crystal 0-4 /hpf H 03/28/21 03:15 Amorphous Sediment 3+ /hpf 03/28/21 03:15 Urine Bacteria Trace /hpf (NONE) 03/28/21 03:15 Coarse Granular Casts 0-4 /lpf H 03/28/21 03:15 Ur Random Sodium 14 mmol/L 03/28/21 03:15 Ur Random Potassium 62 mmol/L 03/28/21 03:15 Ur Random Chloride 12 mmol/L 03/28/21 03:15 Urine Creatinine 160 mg/dL (39-259) 03/28/21 03:15 Impressions Chest CTA 03/28/21 00:03 IMPRESSION: 1. No pulmonary embolism. 2. Hazy bilateral pulmonary opacities which are consistent with COVID-19. 3. Small hiatal hernia. Radiation Dose CTDIVOL = (mGy): DLP = 597.74 (mGy-cm) Head/Neck Ultrasound 04/03/21 17:42 IMPRESSION: Indeterminate left neck mass measuring nearly 3 cm in size. This does not appear to originate from the thyroid. Further evaluation with CT is recommended. Soft Tissue Neck X-Ray 04/03/21 17:42 IMPRESSION: Limited evaluation of left neck mass due to modality and overlying medical equipment. For further evaluation, would recommend CT of the neck. Chest X-Ray 04/08/21 07:54 IMPRESSION: Increased bilateral pulmonary infiltrates, progressive pneumonitis not excluded. Clinical correlation is recommended. Micro: Microbiology 04/06/21 10:30 Urine Culture - Final Urine Catheterized 04/06/21 14:10 Blood Culture - Preliminary Blood NEGATIVE TO DATE 04/06/21 14:05 Blood Culture - Preliminary Blood NEGATIVE TO DATE A&P Assessment and plan (1) Acute hypoxemic respiratory failure due to severe acute respiratory syndrome coronavirus 2 (SARS-CoV-2) disease: Status: Acute (2) Acute kidney injury: Status: Acute (3) Hyponatremia: Status: Acute (4) COVID-19: Status: Acute (5) Ischemic cardiomyopathy: Status: Acute (6) Benign essential HTN: Status: Acute #Acute hypoxic respiratory failure secondary to ARDS due to COVID-19 pneumonia #Concern for alcohol withdrawal -as patient takes alcohol every night -Symptoms started 03/20/2021 -Test + 03/26/2021, CT 03/28/2020 were negative for pulmonary embolism -Intubated 04/02/2021 -Completed 3 proning sessions -Currently on CMV-14/100/10/50 5% and ABG 7.3 4/56/161/30 -Chest x-ray increased bilateral pulmonary infiltrates with progressive pneumonitis not excluded -Off paralytic and Versed, tapering of fentanyl, propofol and if needed start on Precedex, Ativan as needed for withdrawal given his history of alcohol -Seroquel 50 mg twice daily -Completed 3 proning sessions -Patient was on Versed and received 1 dose of phenobarbital 130 MCG for possible alcohol withdrawal -DuoNeb every 4 scheduled, Pulmicort 0.5 twice daily scheduled -S/p dexamethasone 6 mg daily started 03/28/2021 -Completed remdesivir 5-day course-continuing extended 5 more days -On Rocephin and azithromycin for empiric coverage -So far bacterial antigens, MRSA in nares, Legionella urine antigen, sputum culture, blood cultures, TTE negative -CRP 91 today -Currently on Lovenox for DVT prophylaxis -1 fever spike 101 -on 04/06/2021-cultures 04/06/2021-negative so far #Ischemic cardiomyopathy - 12/22/2020 stress test-large area of old myocardial infarction versus scarring -12/22/2020 echo-normal LV cavity size with EF estimated 45% -Aspirin 81/Imdur 30/metoprolol 50/atorvastatin 20 -Keep net negative to even -Lasix as needed # Hypokalemia-resolved -Supplemented-monitor #Deranged LFTs likely secondary to COVID-19 pneumonia-normalized -Monitor LFTs #Neck swelling -Soft tissue neck x-ray limited evaluation of left neck mass due to modality and overlying medical equipment -Solid-appearing left neck mass measuring 2.9 x 2.7 cm of unclear origin, does not appear to originate from the thyroid. - Further evaluation with CT is recommended and patient is stable #Initial 2 days there was difficulty passing NG tube, later successfully inserted and advanced. Continue tube feeding #Glucose well controlled #GI prophylaxis famotidine #DVT prophylaxis-Lovenox 40 #Full code #Family updated #Prognosis guarded Recommendations conveyed to hospitalist, RN, RT taking care of the patient Attestations Medical Necessity Statement*: Acute hypoxic respiratory failure secondary to ARDS due to COVID-19 pneumonia-intubated and mechanically ventilated and currently being proned still requiring high FiO2 Time Spent in Patient Care: Greater than 35 minutes (>than 50% of time spent in counselling and/or direct pt care on unit). Critical Care Time: The high probability of a clinically significant, sudden or life threatening deterioration of the patient's [pulmonary, neurological] system(s) required my full and direct attention, intervention and personal management. The critical care time is as shown. This time is in addition to time spent performing any reported procedures but includes the following: [x] Data and vital sign review and interpretation [x] Patient assessment, examination and intervention [x] Documentation [x] Medication orders and management Critical Care Time (min): 45 Coding Level of Care Code Established Pt Acute Vocal Performer for [facility] Fwd Patient Type Established History Comprehensive Exam Comprehensive Medical Decision Making High Complexity Diagnoses Acute hypoxemic respiratory failure due to severe acute respiratory syndrome coronavirus 2 (SARS-CoV-2) disease U07.1; J96.01 Acute kidney injury N17.9 Hyponatremia E87.1 COVID-19 U07.1 Ischemic cardiomyopathy I25.5 Benign essential HTN I10 Time Spent (min) 45
[2021-04-08] MEDS: cefTRIAXone 1,000 MG in sodium chloride 0.9% (plus) 100 ML 200 MG IV (22:23)
[2021-04-09] VITALS (112 sets, daily range): BP systolic 85–156; BP diastolic 54–97; PULSE 50–110; RESP 15–35; TEMP 37.2–37.8; O2SAT 82–99
[2021-04-09] MEDS: propofol 1,000 MG/100 ML INJ 11.45 MG IV ×2 (02:26→18:11)
[2021-04-09] MEDS: acetaminophen 325 mg Tablet 650 MG PO (03:15)
[2021-04-09] MEDS: ipratropium-albuterol 3 mL Neb INHALATION ×6 (04:04→23:51)
[2021-04-09 05:48] LABS: Basophils % 0.1 %; Eosinophils # 0.1 10^3/uL (0.0-0.8); Eosinophils % 0.8 %; Hematocrit 38.1 % (42.0-52.0); Hemoglobin 12.6 g/dL (11.7-16.6); Lymphocytes # 0.3 10^3/uL (0.8-4.8); Lymphocytes % 2.6 %; Mean Corpuscular HGB Conc 33.1 g/dL (30.0-36.0); Mean Corpuscular Hemoglobin 34.5 pg (28.0-34.0); Mean Corpuscular Volume 104.4 fl (80-94); Mean Platelet Volume 10.5 fL (7.4-10.4); Monocytes # 0.2 10^3/uL (0.2-0.9); Monocytes % 1.9 %; Neutrophils # 9.81 10^3/uL (1.8-7.7); Neutrophils % 93.6 %; Nucleated Red Blood Cells % 0 %; Platelet Count 329 10^3/cmm (130-400); Red Blood Count 3.65 10^6/uL (4.1-5.3); Red Cell Distribution Width 12.2 % (12.1-15.1); White Blood Count 10.5 10^3/uL (4.0-10.0)
[2021-04-09] MEDS: famotidine 20 mg/2 mL INJ IVP ×2 (05:49→18:22)
[2021-04-09 06:09] LABS: Alanine Aminotransferase 31 U/L (0-41); Albumin Level 2.2 g/dL (3.5-5.2); Alkaline Phosphatase 87 IU/L (40-130); Aspartate Amino Transferase 48 U/L (0-40); Blood Urea Nitrogen 26 mg/dL (8-23); Calcium 8.3 mg/dL (8.5-10.5); Carbon Dioxide 25 mmol/L (22-29); Chloride 104 mmol/L (98-107); Globulin 3.7 g/dL (1.3-4.6); Glucose 62 mg/dL (65-115); Osmolality Calculated 291 mOsm/kg (285-295); Sodium 139 mmol/L (136-145); Total Bilirubin 1.6 mg/dL (0.15-1.2); Total Protein 5.9 g/dL (6.6-8.7)
[2021-04-09 06:10] LABS: Anion Gap 14.3 (5-19); Potassium 4.3 mmol/L (3.5-5.1)
--- NOTE | 2021-04-09 06:15 | PC.NURSE ---
Shift Note Frequent safety and comfort rounds continue. Orders and/or nursing care completed as indicated. Patient monitored for response to intervention and treatment(s). Education provided includes pain management. 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 Will continue to monitor.
--- NOTE | 2021-04-09 08:17 | PC.NURSE ---
Called pharmacy for a levophed bag. Pt has been off since 04/04. Currently MAPs are low 50's. manual and ART Systolic in the 80's
--- NOTE | 2021-04-09 08:39 | PC.NURSE ---
Rounding done with Dr. Batista. Plan for the day was gone over. We will wake pt up, check mentation and possibly work on extubation.
[2021-04-09] MEDS: dexmedetomidine 400 MCG in sodium chloride 0.9% (100 ml) 100 ML IV (08:40)
[2021-04-09] MEDS: budesonide 0.5 mg/2 mL Neb INHALATION ×2 (09:01→20:17)
--- NOTE | 2021-04-09 09:04 | PC.CHAP ---
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 supervisor visit [] Patient/Family/Request visit [] Outpatient visit [] Follow-up visit [] Physician referral [] Code/Alert [x Routine visit [] Staff referral [] Actively dying [] Patient sleeping [] Family support [] [] Out of room [] Palliative care [] [] Receiving care in room [] Pre-surgical visit [] Trauma [] Long length of stay [x] ICU visit [] Other: Relational/Emotional Strength [] Patient feels connected with others/family/visitors/staff [] Distress [] Loneliness/isolation [] Abandonment Spirituality of Patient [] Person of [place] [] Attends Scientology of their [place] [] Believes in Prayer [] Reads Bible or Mormon materials [] There are Spiritual issues to be addressed Seam Taper Machine Interventions [x] Prayer [] Active listening [] Non-anxious presence [] Spiritual/emotional support [] Crisis/trauma care [] Spiritual counseling [] Bereavement support [] Provided bereavement packet [] Provided Bible/devotional materials [] Provided toy/stuffed animal, coloring book to patient or family member [] Provided Communion [] Anointing/[place] [] Salvation [x] Completed spiritual assessment [] Other: Impact on Illness or Injury [] Angry [] Fearful [] Anxious [] Often cries [] Exhaustion [] Unable to work [] Unable to attend latter day [] Unable to walk/stand [] Unable to read [] Unable to drive [] Unable to eat/drink [] Unable to sleep [] Unable to be with family [] Patient intubated [] Other: Summary Time spent with patient
[2021-04-09] MEDS: aspirin 81 mg EC Tablet PO (09:45)
[2021-04-09] MEDS: guaiFENesin 600 mg Tablet 1200 MG PO ×2 (09:45→18:22)
[2021-04-09] MEDS: propofol 1,000 MG/100 ML INJ 17.18 MG IV (09:45)
[2021-04-09] MEDS: zinc gluconate 50 mg Tablet PO (09:45)
[2021-04-09] MEDS: azithromycin 250 mg Tablet 500 MG PO (09:45)
[2021-04-09] MEDS: ascorbic acid 500 mg Tablet PO (09:46)
[2021-04-09] MEDS: atorvastatin 40 mg Tablet 20 MG PO (09:46)
[2021-04-09] MEDS: folic acid 1 mg Tablet PO (09:46)
[2021-04-09] MEDS: ferrous gluconate 324 mg Tablet PO ×2 (09:47→18:22)
[2021-04-09] MEDS: multivitamin therapeutic Tablet 1 TAB PO (09:48)
[2021-04-09] MEDS: metoprolol succinate ER (24 HR) 50 mg Tablet PO (09:53)
[2021-04-09] MEDS: isosorbide mononitrate ER 30 mg Tablet PO (09:54)
[2021-04-09] MEDS: enoxaparin 40 mg/0.4 mL Syringe SUBCUT (09:55)
[2021-04-09 10:17] LABS: ABG PH Result 7.48 (7.35-7.45); Arterial Blood Gas Hematocrit 40.1 % (42-52); Base Excess ABG 4.8 mmol/L (-2.0-2.0); Blood Gas Operator Identificat CAK; Blood Gas Sample Site Not specified; Blood Gas Sample Type Arterial; HCO3 ABG 28.7 mmol/L (22-26); Oxygen Device VENT; PO2 ABG 66.6 mmHg (80.0-100.0)
[2021-04-09] MEDS: thiamine 100 mg Tablet PO (14:38)
[2021-04-09] MEDS: sodium chloride 0.9% 500 ML XX (14:38)
--- NOTE | 2021-04-09 15:38 | PC.NUTR ---
Tube feeding recommendations: Pt likely malnourished given 7 days no po intake (last po 04/02/21), and no TF provision. TF ordered per RD recommendation on 04/08/21: Jevity 1.2 @ 15 ml/hr, increase by 15 ml/hr q 12 hrs to goal of 40 ml/hr, 150 m l H2O flushes q 6 hrs. TF at goal to provide 1152 kcal, 53 protein, and 1375 ml H2O. However, no TF provision noted at this time except 30 ml on 04/07 (prior to order). Propofol at current rate providing 302 kcal/day. Continue to recommend checking triglycerides. Recommend proceed with TF as ordered by MD to meet nutritional needs. See full RD assessment for further details.
--- NOTE | 2021-04-09 16:34 | P.PN_ITS ---
Subjective Subjective: Interval history: Patient intubated, on ventilator. Trying to open eyes to stimulation when I evaluated him. History and physical, as well as daily progress notes reviewed. Medications: Reviewed: Yes Vitals/I&O/Wt Last Vital Signs Temp 100.1 F H 04/09/21 02:30 Pulse 100 04/09/21 15:50 Resp 24 H 04/09/21 15:48 BP 103/55 04/09/21 15:15 Pulse Ox 94 04/09/21 15:48 04/09/21 04/09/21 04/09/21 06:59 14:59 22:59 Intake Total 190.824 / 752.462 692.444 / 692.444 Output Total 1100 / 1600 Balance -909.176 / -847.538 692.444 / 692.444 Weight last 48 hrs Weight 82.809 kg Weight 83.943 kg Physical Exam Narrative: EXAM NARRATIVE: General exam no distress Neck is supple no lymphadenopathy or thyromegaly Cardiovascular regular rate and rhythm without murmur Lungs clear Abdomen is soft, positive bowel sounds Extremities no cyanosis clubbing or edema Urinary Catheter Management^: Mullen: Cath Placed During This Visit: yes, but has since been removed by the nurse Reason for Continuing Indwelling Catheter: Accurate Measurement of Urinary Output in Critically Ill Patients Urinary Catheter Date of Insertion: 04/06/21 Urinary Catheter Time of Insertion: 11:09 Date Urinary Catheter Removed: 04/06/21 Time Urinary Catheter Discontinued: 11:07 Data : 04/09/21 04:00 04/09/21 04:00 A&P Assessment and plan (1) Hypoxemia: Hypoxic respite failure with ARDS secondary to severe COVID-19. Appreciate pulmonary critical care consultation. He has completed his course of remdesivir, and dexamethasone Discontinue azithromycin, ceftriaxone. He has completed an adequate course. Monitor for any fever, worsening respiratory status Status: Acute (2) COVID-19: Severe COVID-19 with ARDS. As above. Status: Acute (3) Ischemic cardiomyopathy: No symptoms currently Status: Acute (4) Acute kidney injury: Resolved. Status: Acute (5) Hyponatremia: Resolved. Status: Acute (6) Atherosclerosis of coronary artery of [place] heart without angina pectoris: Continue cardiac medications. Status: Acute Qualifiers: Coronary Disease-Associated Artery/Lesion type: unspecified vessel or lesion type Qualified Code(s): I25.10 - Atherosclerotic heart disease of [place] coronary artery without angina pectoris (7) Dyslipidemia: Status: Acute (8) Benign essential HTN: Status: Acute (9) Neck mass: Indeterminate left neck mass measuring nearly 3 cm in size, does not appear to originate from the thyroid. Will need additional evaluation once he is more stable. Status: Acute (10) Fever: Currently resolved. Monitor for any recurrence. Status: Acute Additional A&P Information Hypokalemia, corrected Attestations Medical Necessity Statement*: Needs continued hospital stay secondary to COVID-19 pneumonia, severe requiring mechanical ventilation. Critical Care Time: Critical Care Time (min): 32 Other Attestations: The high probability of a clinically significant, sudden or life threatening deterioration of the patient's [pulmonary] system(s) required my full and direct attention, intervention and personal management. The critical care time is as shown. This time is in addition to time spent performing any reported procedures but includes the following: [x] Data and vital sign review and interpretation [x] Patient assessment, examination and intervention [x] Documentation [x] Medication orders and management Coding Level of Care Code Acute Material Control Supervisor for [facility] Fwd Diagnoses Hypoxemia R09.02 COVID-19 U07.1 Ischemic cardiomyopathy I25.5 Acute kidney injury N17.9 Hyponatremia E87.1 Atherosclerosis of coronary artery of [place] heart without angina pectoris I25.10 Coronary Disease-Associated Artery/Lesion type: unspecified vessel or lesion type Dyslipidemia E78.5 Benign essential HTN I10 Neck mass R22.1 Fever R50.9
[2021-04-09] MEDS: dexmedetomidine 400 MCG in sodium chloride 0.9% (100 ml) 100 ML 6.44 MCG IV (18:40)
--- NOTE | 2021-04-09 19:13 | P.PN_ITS ---
Subjective Subjective: Interval history: -Patient seen at bedside today -Continue with awakening trial -Completed 4 sessions of proning and requiring FiO2 60% -Labs and imaging reviewed Medications: Reviewed: Yes Vitals/I&O/Wt Last Vital Signs Temp 98.9 F 04/09/21 16:30 Pulse 67 04/09/21 19:00 Resp 29 H 04/09/21 19:00 BP 103/55 04/09/21 19:00 Pulse Ox 91 04/09/21 19:00 04/09/21 04/09/21 04/09/21 06:59 14:59 22:59 Intake Total 190.824 / 752.462 692.444 / 692.444 49.987 / 742.431 Output Total 1100 / 1600 800 / 800 Balance -909.176 / -847.538 692.444 / 692.444 -750.013 / -57.569 Weight last 48 hrs Weight 182 lb 9 oz Weight 185 lb 1 oz Physical Exam Narrative: EXAM NARRATIVE: General: lying in bed, sedated and intubated. HEENT:NCAT, PERRLA, EOMI Neck: Supple Lungs: Bilateral diffuse coarse crackles Heart: s1/s2, RRR Abd: soft, NT, ND, BS + Normoactive Extremities: No edema BUSINESS MANAGEMENT PROFESSOR: sedated and limited BUSINESS MANAGEMENT PROFESSOR exam possible. SKIN: no rash LDA: # CVC: Left internal jugular vein 04/03/2021 # A line: Right radial arterial line 04/03/2021 Urinary Catheter Management^: Mullen: Cath Placed During This Visit: yes, but has since been removed by the nurse Reason for Continuing Indwelling Catheter: Accurate Measurement of Urinary Output in Critically Ill Patients Urinary Catheter Date of Insertion: 04/06/21 Urinary Catheter Time of Insertion: 11:09 Date Urinary Catheter Removed: 04/06/21 Time Urinary Catheter Discontinued: 11:07 Data : 04/10/21 04:00 04/10/21 04:00 Other Labs: Laboratory Results WBC 10.5 10^3/uL (4.0-10.0) H 04/09/21 04:00 Corrected WBC Cancelled 03/27/21 15:45 RBC 3.65 10^6/uL (4.1-5.3) L 04/09/21 04:00 Hgb 12.6 g/dL (11.7-16.6) 04/09/21 04:00 Hct 38.1 % (42.0-52.0) L 04/09/21 04:00 MCV 104.4 fl (80-94) H 04/09/21 04:00 MCH 34.5 pg (28.0-34.0) H 04/09/21 04:00 MCHC 33.1 g/dL (30.0-36.0) 04/09/21 04:00 RDW 12.2 % (12.1-15.1) 04/09/21 04:00 Plt Count 329 10^3/cmm (130-400) 04/09/21 04:00 MPV 10.5 fL (7.4-10.4) H 04/09/21 04:00 Gran % Cancelled 03/27/21 15:45 Neut % (Auto) 93.6 % 04/09/21 04:00 Lymph % (Auto) 2.6 % 04/09/21 04:00 Frio % (Auto) 1.9 % 04/09/21 04:00 Eos % (Auto) 0.8 % 04/09/21 04:00 Baso % (Auto) 0.1 % 04/09/21 04:00 Neut # (Auto) 9.81 10^3/uL (1.8-7.7) H 04/09/21 04:00 Lymph # (Auto) 0.3 10^3/uL (0.8-4.8) L 04/09/21 04:00 Frio # (Auto) 0.2 10^3/uL (0.2-0.9) 04/09/21 04:00 Eos # (Auto) 0.1 10^3/uL (0.0-0.8) 04/09/21 04:00 Baso # (Auto) 0.0 10^3/uL (0.0-0.1) 04/09/21 04:00 Absolute Gran (auto) Cancelled 03/27/21 15:45 Nucleated RBC % (auto) 0 % 04/09/21 04:00 Nucleated RBCs # 0.0 /100WBC 04/09/21 04:00 ESR 57 mm/hr (0-10) H 04/03/21 04:45 D-Dimer 3.10 ug/mIFEU (0-0.59) H 04/05/21 03:57 Specimen Type Arterial 04/09/21 10:05 Sample Site Not specified 04/09/21 10:05 ABG pH 7.48 (7.35-7.45) H 04/09/21 10:05 ABG pCO2 39.0 mmHg (35-45) 04/09/21 10:05 ABG pO2 66.6 mmHg (80.0-100.0) L 04/09/21 10:05 ABG HCO3 28.7 mmol/L (22-26) H 04/09/21 10:05 ABG O2 Saturation 98.9 04/04/21 03:46 ABG Base Excess 4.8 mmol/L (-2.0-2.0) H 04/09/21 10:05 Hoang Test N/a 04/09/21 10:05 A-a O2 Gradient 43.2 mmHg (5-10) H 04/04/21 03:46 Hematocrit 40.1 % (42-52) L 04/09/21 10:05 Hgb O2 Saturation 97.8 % (95-100) 04/04/21 03:46 Carboxyhemoglobin 0.1 %THgb (0.4-20.1) L 04/04/21 03:46 Methemoglobin 1.1 % (0.4-1.5) 04/04/21 03:46 Total Hemoglobin 13.9 g/dL (14-18) L 04/04/21 03:46 Sodium 141.0 mmol/L (131-143) 04/04/21 03:46 Potassium 4.0 mmol/L (3.5-5.0) 04/04/21 03:46 Glucose 141.0 mg/dL (70-115) H 04/04/21 03:46 Ionized Calcium 1.2 mmol/L (1.1-1.4) 04/04/21 03:46 Respiration Rate 14.0 % 04/07/21 04:37 O2 Delivery Device Vent 04/09/21 10:05 O2 Liters/Min 15.0 % 04/02/21 21:49 Vent Mode Cmv 04/07/21 04:37 Mechanical Rate 14.0 04/07/21 04:37 FiO2 60.0 % 04/09/21 10:05 Tidal Volume 0.50 04/09/21 10:05 PEEP 10.0 cmH20 04/09/21 10:05 Specimen Drawn By Chandni 04/07/21 04:37 Environmental Programs Manager ID Cak 04/09/21 10:05 Sodium 139 mmol/L (136-145) 04/09/21 04:00 Potassium 4.3 mmol/L (3.5-5.1) 04/09/21 04:00 Chloride 104 mmol/L (98-107) 04/09/21 04:00 Carbon Dioxide 25 mmol/L (22-29) 04/09/21 04:00 Anion Gap 14.3 (5-19) 04/09/21 04:00 BUN 26 mg/dL (8-23) H 04/09/21 04:00 Creatinine 0.6 mg/dL (0.7-1.2) L 04/09/21 04:00 GFR Calculation 137.0 mL/min (90-130) H 04/09/21 04:00 Glucose 62 mg/dL (65-115) L 04/09/21 04:00 Estimat Average Glucose 123 03/28/21 05:50 Hemoglobin A1c 5.9 % (4.0-6.0) 03/28/21 05:50 Calculated Osmolality 291 mOsm/kg (285-295) 04/09/21 04:00 Lactic Acid 1.8 mmol/L (0.5-2.2) 03/27/21 15:45 Calcium 8.3 mg/dL (8.5-10.5) L 04/09/21 04:00 Phosphorus 3.9 mg/dL (2.5-4.5) 03/28/21 05:50 Magnesium 2.4 mg/dL (1.7-2.3) H 04/06/21 03:00 Iron 32 ug/dL (59-158) L 03/27/21 19:06 TIBC 190 mcg/dl 03/27/21 19:06 % Saturation 16.8 % (20-50) L 03/27/21 19:06 Unsat Iron Binding 158 ug/dL (112-347) 03/27/21 19:06 Ferritin 2350 ng/mL (30-400) H 03/30/21 05:23 Total Bilirubin 1.6 mg/dL (0.15-1.2) H 04/09/21 04:00 AST 48 U/L (0-40) H 04/09/21 04:00 ALT 31 U/L (0-41) 04/09/21 04:00 Alkaline Phosphatase 87 IU/L (40-130) 04/09/21 04:00 Creatine Kinase 100 U/L (39-308) 03/30/21 05:23 Troponin T Baseline 12 ng/L (0-15) 03/27/21 16:21 Troponin T 120 Minute 12.00 ng/L (0-15) 03/27/21 18:24 Delta Troponin T 0 ABS# (0-10) 03/27/21 18:24 C-Reactive Protein 91.9 mg/L (0.0-4.9) H 04/03/21 04:45 C-Reactive Protein Cancelled 04/03/21 04:45 NT-Pro-B Natriuret Pep 1027 pg/mL (0-125) H 04/03/21 04:45 NT-Pro-B Natriuret Pep Cancelled 04/03/21 04:45 Total Protein 5.9 g/dL (6.6-8.7) L 04/09/21 04:00 Albumin 2.2 g/dL (3.5-5.2) L 04/09/21 04:00 Globulin 3.7 g/dL (1.3-4.6) 04/09/21 04:00 Triglycerides 75 mg/dL (0-150) 03/28/21 05:50 Cholesterol 115 mg/dL (0-200) 03/28/21 05:50 LDL Cholesterol, Calc 67 mg/dL (50-129) 03/28/21 05:50 Total VLDL Cholesterol 15 mg/dL (0-30) 03/28/21 05:50 HDL Cholesterol 33 mg/dL (60-100) L 03/28/21 05:50 Cholesterol/HDL Ratio 3.48 mg/dL (1.0-5.00) 03/28/21 05:50 Vitamin B12 851 pg/mL (232-1245) 04/06/21 03:00 Folate 6.7 ng/mL (4.5-32.2) 04/06/21 03:00 Procalcitonin 0.10 ng/mL (0-0.5) 03/31/21 04:18 TSH 0.89 uIU/mL (0.27-4.20) 03/27/21 19:06 Urine Color Yellow (Yellow) 03/28/21 03:15 Urine Appearance Sl hazy (CLEAR) 03/28/21 03:15 Urine pH 5 (5-7) 03/28/21 03:15 Ur Specific [place] 1.020 (1.005-1.030) 03/28/21 03:15 Urine Protein 3+ (Negative) H 03/28/21 03:15 Urine Glucose (UA) Norm (Normal) 03/28/21 03:15 Urine Ketones Negative (Negative) 03/28/21 03:15 Urine Blood 3+ (Negative) H 03/28/21 03:15 Urine Nitrate Negative (Negative) 03/28/21 03:15 Urine Bilirubin Neg (Negative) 03/28/21 03:15 Urine Urobilinogen Norm mg/dL (Negative) 03/28/21 03:15 Ur Leukocyte Esterase Negative (Negative) 03/28/21 03:15 Urine RBC 0-4 /hpf (0-2) H 03/28/21 03:15 Urine WBC 0-4 /hpf (0-5) H 03/28/21 03:15 Ur Squamous Epith Cells 0-4 /hpf (0-5) H 03/28/21 03:15 Ur Renal Epithelial Cell 0 /hpf 03/28/21 03:15 Calcium Oxalate Crystal 0-4 /hpf H 03/28/21 03:15 Amorphous Sediment 3+ /hpf 03/28/21 03:15 Urine Bacteria Trace /hpf (NONE) 03/28/21 03:15 Coarse Granular Casts 0-4 /lpf H 03/28/21 03:15 Ur Random Sodium 14 mmol/L 03/28/21 03:15 Ur Random Potassium 62 mmol/L 03/28/21 03:15 Ur Random Chloride 12 mmol/L 03/28/21 03:15 Urine Creatinine 160 mg/dL (39-259) 03/28/21 03:15 Impressions Chest CTA 03/28/21 00:03 IMPRESSION: 1. No pulmonary embolism. 2. Hazy bilateral pulmonary opacities which are consistent with COVID-19. 3. Small hiatal hernia. Radiation Dose CTDIVOL = (mGy): DLP = 597.74 (mGy-cm) Head/Neck Ultrasound 04/03/21 17:42 IMPRESSION: Indeterminate left neck mass measuring nearly 3 cm in size. This does not appear to originate from the thyroid. Further evaluation with CT is recommended. Soft Tissue Neck X-Ray 04/03/21 17:42 IMPRESSION: Limited evaluation of left neck mass due to modality and overlying medical equipment. For further evaluation, would recommend CT of the neck. Chest X-Ray 04/08/21 07:54 IMPRESSION: Increased bilateral pulmonary infiltrates, progressive pneumonitis not excluded. Clinical correlation is recommended. Micro: Microbiology 04/09/21 13:40 Gram Stain - Final Sputum - Endotracheal Tube Aspirate A&P Assessment and plan (1) Acute hypoxemic respiratory failure due to severe acute respiratory syndrome coronavirus 2 (SARS-CoV-2) disease: Status: Acute (2) Acute kidney injury: Status: Acute (3) Hyponatremia: Status: Acute (4) COVID-19: Status: Acute (5) Ischemic cardiomyopathy: Status: Acute (6) Benign essential HTN: Status: Acute #Acute hypoxic respiratory failure secondary to ARDS due to COVID-19 pneumonia #Concern for alcohol withdrawal -as patient takes alcohol every night -Symptoms started 03/20/2021 -Test + 03/26/2021, CT 03/28/2020 were negative for pulmonary embolism -Intubated 04/02/2021 -Completed 4 proning sessions -Currently on CMV-500/10/60 % and ABG 7.4 /66/28 -Chest x-ray increased bilateral pulmonary infiltrates with progressive pneumonitis not excluded -Off paralytic and Versed, tapering of fentanyl, propofol and if needed start on Precedex, Ativan as needed for withdrawal given his history of alcohol; earlier received 1 dose of phenobarbital 130 MCG for alcohol withdrawal -Seroquel 25 mg at bedtime -DuoNeb every 4 scheduled, Pulmicort 0.5 twice daily scheduled -S/p dexamethasone 6 mg daily & Completed remdesivir 5-day course and extended 5 more days -Completed adequate Rocephin and azithromycin for empiric coverage -So far bacterial antigens, MRSA in nares, Legionella urine antigen, sputum culture, blood cultures, TTE negative -CRP 91 -Currently on Lovenox for DVT prophylaxis - fever spikes-on 04/06/2021-cultures 04/06/2021-negative so far; another low- grade temp today-sputum cultures negative #Ischemic cardiomyopathy - 12/22/2020 stress test-large area of old myocardial infarction versus scarring -12/22/2020 echo-normal LV cavity size with EF estimated 45% -Aspirin 81/Imdur 30/metoprolol 50/atorvastatin 20 -Keep net negative to even -Lasix as needed # Hypokalemia-resolved -Supplemented-monitor #Deranged LFTs likely secondary to COVID-19 pneumonia-normalized -Monitor LFTs #Neck swelling -Soft tissue neck x-ray limited evaluation of left neck mass due to modality and overlying medical equipment -Solid-appearing left neck mass measuring 2.9 x 2.7 cm of unclear origin, does not appear to originate from the thyroid. - Further evaluation with CT is recommended and patient is stable #Initial 2 days there was difficulty passing NG tube, later successfully inserted and advanced. Continue tube feeding #Glucose well controlled #GI prophylaxis famotidine #DVT prophylaxis-Lovenox 40 #Full code #Family updated #Prognosis guarded Recommendations conveyed to hospitalist, RN, RT taking care of the patient Attestations Medical Necessity Statement*: Acute hypoxic respiratory failure secondary to ARDS due to COVID-19 pneumonia-intubated and mechanically ventilated and cu rrently being proned still requiring high FiO2 Time Spent in Patient Care: Greater than 35 minutes (>than 50% of time spent in counselling and/or direct pt care on unit) . Critical Care Time: The high probability of a clinically significant, sudden or life threatening deterioration of the patient's [pulmonary, neurological] system(s) required my full and direct attention, intervention and personal management. The critical care time is as shown. This time is in addition to time spent performing any reported procedures but includes the following: [x] Data and vital sign review and interpretation [x] Patient assessment, examination and intervention [x] Documentation [x] Medication orders and management Critical Care Time (min): 45 Coding Level of Care Code Established Pt Acute Spindle Plumber for Chg Fwd Patient Type Established History Comprehensive Exam Comprehensive Medical Decision Making High Complexity Diagnoses Acute hypoxemic respiratory failure due to severe acute respiratory syndrome coronavirus 2 (SARS-CoV-2) disease U07.1; J96.01 Acute kidney injury N17.9 Hyponatremia E87.1 COVID-19 U07.1 Ischemic cardiomyopathy I25.5 Benign essential HTN I10 Time Spent (min) 45
[2021-04-09] MEDS: benzonatate 100 mg Capsule PO (21:06)
[2021-04-09] MEDS: quetiapine 25 mg Tablet PO (21:06)
[2021-04-10] VITALS (75 sets, daily range): BP systolic 83–148; BP diastolic 50–95; PULSE 76–106; RESP 14–33; TEMP 36.6–37.4; O2SAT 89–96
[2021-04-10] MEDS: propofol 1,000 MG/100 ML INJ 17.18 MG IV ×5 (01:10→19:59)
[2021-04-10] MEDS: ipratropium-albuterol 3 mL Neb INHALATION ×6 (03:19→23:33)
[2021-04-10 04:31] LABS: Basophils % 0.2 %; Eosinophils # 0.1 10^3/uL (0.0-0.8); Hematocrit 36.5 % (42.0-52.0); Hemoglobin 11.7 g/dL (11.7-16.6); Lymphocytes # 0.5 10^3/uL (0.8-4.8); Lymphocytes % 4.8 %; Mean Corpuscular HGB Conc 32.1 g/dL (30.0-36.0); Mean Corpuscular Hemoglobin 33.7 pg (28.0-34.0); Mean Corpuscular Volume 105.2 fl (80-94); Mean Platelet Volume 10.5 fL (7.4-10.4); Monocytes # 0.4 10^3/uL (0.2-0.9); Monocytes % 3.5 %; Neutrophils # 9.51 10^3/uL (1.8-7.7); Neutrophils % 89.7 %; Nucleated Red Blood Cells % 0 %; Platelet Count 291 10^3/cmm (130-400); Red Blood Count 3.47 10^6/uL (4.1-5.3); Red Cell Distribution Width 12.5 % (12.1-15.1); White Blood Count 10.6 10^3/uL (4.0-10.0)
[2021-04-10 04:57] LABS: ABG PCO2 37.6 mmHg (35-45); ABG PH Result 7.44 (7.35-7.45); Arterial Blood Gas Hematocrit 38.9 % (42-52); Base Excess ABG 1.7 mmol/L (-2.0-2.0); Blood Gas Operator Identificat JB; Blood Gas Sample Site Not specified; Blood Gas Sample Type Arterial; HCO3 ABG 25.7 mmol/L (22-26); PO2 ABG 64.2 mmHg (80.0-100.0)
[2021-04-10 04:58] LABS: Blood Gas Tidal Volume 0.45; Oxygen Device VENT
[2021-04-10 05:01] LABS: Alanine Aminotransferase 38 U/L (0-41); Albumin Level 1.9 g/dL (3.5-5.2); Alkaline Phosphatase 90 IU/L (40-130); Anion Gap 17.3 (5-19); Aspartate Amino Transferase 56 U/L (0-40); Blood Urea Nitrogen 26 mg/dL (8-23); Calcium 7.9 mg/dL (8.5-10.5); Carbon Dioxide 23 mmol/L (22-29); Chloride 103 mmol/L (98-107); Globulin 4.2 g/dL (1.3-4.6); Glomerular Filtration Rate 114.6 mL/min (90-130); Glucose 82 mg/dL (65-115); Osmolality Calculated 292 mOsm/kg (285-295); Potassium 4.3 mmol/L (3.5-5.1); Sodium 139 mmol/L (136-145); Total Bilirubin 1.2 mg/dL (0.15-1.2); Total Protein 6.1 g/dL (6.6-8.7)
--- NOTE | 2021-04-10 05:15 | PC.NURSE ---
Shift Note Frequent safety and comfort rounds continue. Orders and/or nursing care completed as indicated. Patient monitored for response to intervention and treatment(s). Education provided includes pain management. Patient and/or medical collections representative reinforcement needed. Will continue to monitor.
--- NOTE | 2021-04-10 07:00 | XRR_ITS ---
PROCEDURE INFORMATION: Exam: XR Chest Exam date and time: 04/10/2021 7:00 AM Age: 60 years old Clinical indication: Dyspnea; Additional info: Resp failure TECHNIQUE: Imaging protocol: XR of the chest. Views: 1 view. Total images: 1 COMPARISON: CR (CHEST, ) 04/08/2021 10:49 AM FINDINGS: Tubes, catheters and devices: Nasogastric tube has its proximal port in the lower esophagus, recommend advancement by 7-10 cm. Lungs: Bilateral pulmonary opacities are again noted and have shown interval worsening from the prior exam. Pleural spaces: Unremarkable. No pleural effusion. No pneumothorax. Heart/Mediastinum: Heart size is stable when compared to the prior exam. Bones/joints: Osseous structures are unchanged from the prior exam. XR/XR chest 1V portable [id number] IMPRESSION: 1. Nasogastric tube has its proximal port in the lower esophagus, recommend advancement by 7-10 cm. 2. Bilateral pulmonary opacities are again noted and have shown interval worsening from the prior exam.
--- NOTE | 2021-04-10 08:00 | PC.NURSE ---
Recieved in report that pt was started on Tube feed and after approx 2 hours tube feed was noted in pt mouth. Staff turned off. Dr. Alberto notified on AM rounds. He states that the OG was not placed correctly and to advance aprox 6-10cm. this was done and CXR ordered. tube is now noted to be in the stomach.
--- NOTE | 2021-04-10 08:28 | PC.CHAP ---
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 assembler musical equipment visit [] Patient/Family/Request visit [] Outpatient visit [] Follow-up visit [] Physician referral [] Code/Alert [x] Routine visit [] Staff referral [] Actively dying [] Patient sleeping [] Family support [] [] Out of room [] Palliative care [] [] Receiving care in room [] Pre-surgical visit [] Trauma [] Long length of stay [x] ICU visit [x] Other: vent Relational/Emotional Strength [] Patient feels connected with others/family/visitors/staff [] Distress [] Loneliness/isolation [] Abandonment Spirituality of Patient [] Person of [place] [] Attends Mormon of their [place] [] Believes in Prayer [] Reads Bible or Shinto materials [] There are Spiritual issues to be addressed Spool Sorter Interventions [x] Prayer [] Active listening [] Non-anxious presence [] Spiritual/emotional support [] Crisis/trauma care [] Spiritual counseling [] Bereavement support [] Provided bereavement packet [] Provided Bible/devotional materials [] Provided toy/stuffed animal, coloring book to patient or family member [] Provided Communion [] Anointing/[place] [] Salvation [x] Completed spiritual assessment [] Other: Impact on Illness or Injury [] Angry [] Fearful [] Anxious [] Often cries [] Exhaustion [] Unable to work [] Unable to attend yazidism [] Unable to walk/stand [] Unable to read [] Unable to drive [] Unable to eat/drink [] Unable to sleep [] Unable to be with family [] Patient intubated [] Other: Summary Time spent with patient
[2021-04-10] MEDS: metoprolol succinate ER (24 HR) 50 mg Tablet PO (09:14)
[2021-04-10] MEDS: thiamine 100 mg Tablet PO (09:14)
[2021-04-10] MEDS: ferrous gluconate 324 mg Tablet PO ×2 (09:15→18:18)
[2021-04-10] MEDS: aspirin 81 mg EC Tablet PO (09:15)
[2021-04-10] MEDS: isosorbide mononitrate ER 30 mg Tablet PO (09:15)
[2021-04-10] MEDS: multivitamin therapeutic Tablet 1 TAB PO (09:15)
[2021-04-10] MEDS: guaiFENesin 600 mg Tablet 1200 MG PO ×2 (09:15→18:18)
[2021-04-10] MEDS: atorvastatin 40 mg Tablet 20 MG PO (09:15)
[2021-04-10] MEDS: budesonide 0.5 mg/2 mL Neb INHALATION ×2 (09:15→19:28)
[2021-04-10] MEDS: folic acid 1 mg Tablet PO (09:15)
[2021-04-10] MEDS: FUROsemide 10 mg/mL SDV 4mL 40 MG IVP (09:18)
[2021-04-10] MEDS: famotidine 20 mg/2 mL INJ IVP ×2 (09:19→18:17)
--- NOTE | 2021-04-10 09:19 | CT_ITS ---
WS: [id number] CT NECK TECHNIQUE: Contrast-enhanced CT of the neck with coronal and sagittal reformatted images. CLINICAL INFORMATION: mass COMPARISON: Ultrasound April 03, 2021 DLP: 426.[address] scans at [facility] use at least one of these dose optimization techniques: automat ed exposure control; mA and/or kV adjustment per patient size (includes targeted exams where dose is matched to clinical indication); or iterative reconstruction. FINDINGS: Previously described neck mass on the recent ultrasound is not visualized today. No corresponding harpreet id lesions or fluid collections correspond to the previously described neck mass. Endotracheal tube with tip above the can. Partially visualized enteric tube. Normal posterior nalini a. Mild mucosal thickening right mastoid air cells. Left mastoid air cells well aerated. Mild mucosal thickening maxillary sinuses. Parotid glands are normal. Normal submandibular glands. No evidence of supraglottic or glottic mass. Normal symmetric thyroid gland. Left IJ catheter with ti p extending off the [id number] into the SVC. No cervical lymphadenopathy. Hazy groundglass infiltrates in the lung apices compatible with COVID 19 pneumonia. Disc osteophyte complex with endplate ridging C6-7 with mild central canal stenosis. CT/CT neck w con* [id number] IMPRESSION: 1. No evidence of neck mass that would correspond to the previously described ultrasound findings. 2. Thyroid is normal in appearance. 3. A few prominent mediastinal lymph nodes at the thoracic inlet likely reacti ve. 4. Hazy ground glass infiltrates in the lung apices compatible with COVID 19 P neumonia. 5. Endotracheal tube with tip above the can. Partially visualized enteric t ube. 6. Left IJ catheter extends into the innominate and SVC off the [id number].
[2021-04-10] MEDS: albumin 12.5 GM/50 ML VIAL IV (09:20)
[2021-04-10] MEDS: LORazepam 2 mg/mL INJ 1 mL IVP ×2 (09:38→14:05)
--- NOTE | 2021-04-10 09:47 | PC.NURSE ---
OG advanced 6 cm. Xray ordered to confirm placement.
--- NOTE | 2021-04-10 09:48 | XR_ITS ---
WS: [id number] Exam: XR chest 1V portable [id number] Date/Time of Exam: 04/10/2021 9:51 AM Reason For Exam: recheck OG placement after advanced. An OG tube has been placed and is looped in the gastric cardia. Infiltrates are visualized in the mid and lower lung zones. Heart size is within normal limits. XR/XR chest 1V portable [id number] IMPRESSION: 1. OG tube has been placed and is looped in the gastric cardia. 2. Persistent infiltrates in the visualized mid and lower lung zones as noted a foreign.
[2021-04-10] MEDS: enoxaparin 40 mg/0.4 mL Syringe SUBCUT (14:05)
--- NOTE | 2021-04-10 14:45 | P.PN_ITS ---
Subjective Subjective: Interval history: Christopher is sedated on the ventilator. Medications: Reviewed: Yes Vitals/I&O/Wt Last Vital Signs Temp 99.4 F 04/10/21 09:00 Pulse 94 04/10/21 11:28 Resp 23 H 04/10/21 13:44 BP 148/95 04/10/21 09:30 Pulse Ox 92 04/10/21 13:44 04/09/21 04/10/21 04/10/21 22:59 06:59 14:59 Intake Total 62.867 / 755.311 425.029 / 1180.340 181.056 / 181.056 Output Total 800 / 800 400 / 1200 Balance -737.133 / -44.689 25.029 / -19.660 181.056 / 181.056 Weight last 48 hrs Weight 83.461 kg Weight 82.809 kg Physical Exam Narrative: EXAM NARRATIVE: General exam no distress Neck is supple no lymphadenopathy or thyromegaly Cardiovascular regular rate and rhythm without murmur Lungs clear Abdomen is soft, positive bowel sounds Extremities no cyanosis clubbing or edema Urinary Catheter Management^: Mullen: Cath Placed During This Visit: yes, but has since been removed by the nurse Reason for Continuing Indwelling Catheter: Accurate Measurement of Urinary O utput in Critically Ill Patients Urinary Catheter Date of Insertion: 04/06/21 Urinary Catheter Time of Insertion: 11:09 Date Urinary Catheter Removed: 04/06/21 Time Urinary Catheter Discontinued: 11:07 Data : 04/10/21 04:00 04/10/21 04:00 Micro: Microbiology 04/09/21 13:40 Gram Stain - Final Sputum - Endotracheal Tube Aspirate A&P Assessment and plan (1) Hypoxemia: Hypoxic respite failure with ARDS secondary to severe COVID-19. Appreciate pulmonary critical care consultation. He has completed his course of remdesivir, and dexamethasone Azithromycin, ceftriaxone discontinued. He has completed an adequate course. Monitor for any fever, worsening respiratory status Status: Acute (2) COVID-19: Severe COVID-19 with ARDS. As above. Status: Acute (3) Ischemic cardiomyopathy: No symptoms currently Status: Acute (4) Acute kidney injury: Resolved. Status: Acute (5) Hyponatremia: Resolved. Status: Acute (6) Atherosclerosis of coronary artery of [place] heart without angina pectoris: Continue cardiac medications. Status: Acute Qualifiers: Coronary Disease-Associated Artery/Lesion type: unspecified vessel or lesion type Qualified Code(s): I25.10 - Atherosclerotic heart disease of [place] coronary artery without angina pectoris (7) Dyslipidemia: Status: Acute (8) Benign essential HTN: Status: Acute (9) Neck mass: Indeterminate left neck mass measuring nearly 3 cm in size, does not appear to originate from the thyroid. CT scan performed today demonstrates no mass Status: Acute (10) Fever: Currently resolved. Monitor for any recurrence. Status: Acute Additional A&P Information Hypokalemia, corrected Attestations Medical Necessity Statement*: Needs continued hospital stay secondary to severe Covid pneumonia requiring mechanical ventilation Coding Level of Care Code Acute Surgical Scrub Tech for g Fwd Diagnoses Hypoxemia R09.02 COVID-19 U07.1 Ischemic cardiomyopathy I25.5 Acute kidney injury N17.9 Hyponatremia E87.1 Atherosclerosis of coronary artery of [place] heart without angina pectoris I25.10 Coronary Disease-Associated Artery/Lesion type: unspecified vessel or lesion type Dyslipidemia E78.5 Benign essential HTN I10 Neck mass R22.1 Fever R50.9
[2021-04-10] MEDS: iohexol 300 mg/mL 100 mL Btl IV (14:53)
--- NOTE | 2021-04-10 17:10 | PC.NURSE ---
Bowel sounds Hypoactive. Not residual in belly. Tube feeds restarted.
[2021-04-10] MEDS: dexmedetomidine 400 MCG in sodium chloride 0.9% (100 ml) 100 ML 6.44 MCG IV (19:59)
[2021-04-10] MEDS: quetiapine 25 mg Tablet PO (20:25)
[2021-04-10] MEDS: benzonatate 100 mg Capsule PO (20:25)
--- NOTE | 2021-04-10 22:12 | PM.PN ---
Subjective Subjective: Interval history: -Patient seen at bedside today morning -Continue with awakening trial-FiO2 requirement down to 50% - CT neck today did not show any neck mass -Patient would benefit from trach and recovery at long-term acute care facility-same thing updated to -Labs and imaging reviewed Medications: Reviewed: Yes Vitals/I&O/Wt Last Vital Signs Temp 97.8 F 04/10/21 19:15 Pulse 82 04/10/21 19:31 Resp 23 H 04/10/21 19:31 BP 89/64 04/10/21 18:00 Pulse Ox 94 04/10/21 19:31 04/10/21 04/10/21 04/10/21 06:59 14:59 22:59 Intake Total 425.029 / 1180.340 181.056 / 181.056 379.389 / 560.445 Output Total 400 / 1200 1500 / 1500 400 / 1900 Balance 25.029 / -19.660 -1318.944 / -1318.944 -20.611 / -1339.555 Weight last 48 hrs Weight 184 lb Weight 182 lb 9 oz Physical Exam Narrative: EXAM NARRATIVE: General: lying in bed, sedated and intubated. HEENT:NCAT, PERRLA, EOMI Neck: Supple Lungs: Bilateral diffuse coarse crackles Heart: s1/s2, RRR Abd: soft, NT, ND, BS + Normoactive Extremities: No edema DIRECTOR OF RELIGIOUS LIFE: sedated and limited DIRECTOR OF RELIGIOUS LIFE exam possible. SKIN: no rash LDA: # CVC: Left internal jugular vein 04/03/2021 # A line: Right radial arterial line 04/03/2021 Urinary Catheter Management^: Mullen: Cath Placed During This Visit: yes, but has since been removed by the nurse Reason for Continuing Indwelling Catheter: Accurate Measurement of Urinary Output in Critically Ill Patients Urinary Catheter Date of Insertion: 04/06/21 Urinary Catheter Time of Insertion: 11:09 Date Urinary Catheter Removed: 04/06/21 Time Urinary Catheter Discontinued: 11:07 Data : 04/10/21 04:00 04/10/21 04:00 Other Labs: Laboratory Results WBC 10.6 10^3/uL (4.0-10.0) H 04/10/21 04:00 Corrected WBC Cancelled 03/27/21 15:45 RBC 3.47 10^6/uL (4.1-5.3) L 04/10/21 04:00 Hgb 11.7 g/dL (11.7-16.6) 04/10/21 04:00 Hct 36.5 % (42.0-52.0) L 04/10/21 04:00 MCV 105.2 fl (80-94) H 04/10/21 04:00 MCH 33.7 pg (28.0-34.0) 04/10/21 04:00 MCHC 32.1 g/dL (30.0-36.0) 04/10/21 04:00 RDW 12.5 % (12.1-15.1) 04/10/21 04:00 Plt Count 291 10^3/cmm (130-400) 04/10/21 04:00 MPV 10.5 fL (7.4-10.4) H 04/10/21 04:00 Gran % Cancelled 03/27/21 15:45 Neut % (Auto) 89.7 % 04/10/21 04:00 Lymph % (Auto) 4.8 % 04/10/21 04:00 [place] % (Auto) 3.5 % 04/10/21 04:00 Eos % (Auto) 1.0 % 04/10/21 04:00 Baso % (Auto) 0.2 % 04/10/21 04:00 Neut # (Auto) 9.51 10^3/uL (1.8-7.7) H 04/10/21 04:00 Lymph # (Auto) 0.5 10^3/uL (0.8-4.8) L 04/10/21 04:00 [place] # (Auto) 0.4 10^3/uL (0.2-0.9) 04/10/21 04:00 Eos # (Auto) 0.1 10^3/uL (0.0-0.8) 04/10/21 04:00 Baso # (Auto) 0.0 10^3/uL (0.0-0.1) 04/10/21 04:00 Absolute Gran (auto) Cancelled 03/27/21 15:45 Nucleated RBC % (auto) 0 % 04/10/21 04:00 Nucleated RBCs # 0.0 /100WBC 04/10/21 04:00 ESR 57 mm/hr (0-10) H 04/03/21 04:45 D-Dimer 3.10 ug/mIFEU (0-0.59) H 04/05/21 03:57 Specimen Type Arterial 04/10/21 04:40 Sample Site Not specified 04/10/21 04:40 ABG pH 7.44 (7.35-7.45) 04/10/21 04:40 ABG pCO2 37.6 mmHg (35-45) 04/10/21 04:40 ABG pO2 64.2 mmHg (80.0-100.0) L 04/10/21 04:40 ABG HCO3 25.7 mmol/L (22-26) 04/10/21 04:40 ABG O2 Saturation 98.9 04/04/21 03:46 ABG Base Excess 1.7 mmol/L (-2.0-2.0) 04/10/21 04:40 Hoang Test N/a 04/10/21 04:40 A-a O2 Gradient 43.2 mmHg (5-10) H 04/04/21 03:46 Hematocrit 38.9 % (42-52) L 04/10/21 04:40 Hgb O2 Saturation 97.8 % (95-100) 04/04/21 03:46 Carboxyhemoglobin 0.1 %THgb (0.4-20.1) L 04/04/21 03:46 Methemoglobin 1.1 % (0.4-1.5) 04/04/21 03:46 Total Hemoglobin 13.9 g/dL (14-18) L 04/04/21 03:46 Sodium 141.0 mmol/L (131-143) 04/04/21 03:46 Potassium 4.0 mmol/L (3.5-5.0) 04/04/21 03:46 Glucose 141.0 mg/dL (70-115) H 04/04/21 03:46 Ionized Calcium 1.2 mmol/L (1.1-1.4) 04/04/21 03:46 Respiration Rate 14.0 % 04/07/21 04:37 O2 Delivery Device Vent 04/10/21 04:40 O2 Liters/Min 15.0 % 04/02/21 21:49 Vent Mode Cmv 04/07/21 04:37 Mechanical Rate 14.0 04/07/21 04:37 FiO2 50.0 % 04/10/21 04:40 Tidal Volume 0.45 04/10/21 04:40 PEEP 10.0 cmH20 04/10/21 04:40 Specimen Drawn By Chandni 04/07/21 04:37 Triple Valve Tester ID Hilton 04/10/21 04:40 Sodium 139 mmol/L (136-145) 04/10/21 04:00 Potassium 4.3 mmol/L (3.5-5.1) 04/10/21 04:00 Chloride 103 mmol/L (98-107) 04/10/21 04:00 Carbon Dioxide 23 mmol/L (22-29) 04/10/21 04:00 Anion Gap 17.3 (5-19) 04/10/21 04:00 BUN 26 mg/dL (8-23) H 04/10/21 04:00 Creatinine 0.7 mg/dL (0.7-1.2) 04/10/21 04:00 GFR Calculation 114.6 mL/min (90-130) 04/10/21 04:00 Glucose 82 mg/dL (65-115) 04/10/21 04:00 Estimat Average Glucose 123 03/28/21 05:50 Hemoglobin A1c 5.9 % (4.0-6.0) 03/28/21 05:50 Calculated Osmolality 292 mOsm/kg (285-295) 04/10/21 04:00 Lactic Acid 1.8 mmol/L (0.5-2.2) 03/27/21 15:45 Calcium 7.9 mg/dL (8.5-10.5) L 04/10/21 04:00 Phosphorus 3.9 mg/dL (2.5-4.5) 03/28/21 05:50 Magnesium 2.4 mg/dL (1.7-2.3) H 04/06/21 03:00 Iron 32 ug/dL (59-158) L 03/27/21 19:06 TIBC 190 mcg/dl 03/27/21 19:06 % Saturation 16.8 % (20-50) L 03/27/21 19:06 Unsat Iron Binding 158 ug/dL (112-347) 03/27/21 19:06 Ferritin 2350 ng/mL (30-400) H 03/30/21 05:23 Total Bilirubin 1.2 mg/dL (0.15-1.2) 04/10/21 04:00 AST 56 U/L (0-40) H 04/10/21 04:00 ALT 38 U/L (0-41) 04/10/21 04:00 Alkaline Phosphatase 90 IU/L (40-130) 04/10/21 04:00 Creatine Kinase 100 U/L (39-308) 03/30/21 05:23 Troponin T Baseline 12 ng/L (0-15) 03/27/21 16:21 Troponin T 120 Minute 12.00 ng/L (0-15) 03/27/21 18:24 Delta Troponin T 0 ABS# (0-10) 03/27/21 18:24 C-Reactive Protein 91.9 mg/L (0.0-4.9) H 04/03/21 04:45 C-Reactive Protein Cancelled 04/03/21 04:45 NT-Pro-B Natriuret Pep 1027 pg/mL (0-125) H 04/03/21 04:45 NT-Pro-B Natriuret Pep Cancelled 04/03/21 04:45 Total Protein 6.1 g/dL (6.6-8.7) L 04/10/21 04:00 Albumin 1.9 g/dL (3.5-5.2) L 04/10/21 04:00 Globulin 4.2 g/dL (1.3-4.6) 04/10/21 04:00 Triglycerides 75 mg/dL (0-150) 03/28/21 05:50 Cholesterol 115 mg/dL (0-200) 03/28/21 05:50 LDL Cholesterol, Calc 67 mg/dL (50-129) 03/28/21 05:50 Total VLDL Cholesterol 15 mg/dL (0-30) 03/28/21 05:50 HDL Cholesterol 33 mg/dL (60-100) L 03/28/21 05:50 Cholesterol/HDL Ratio 3.48 mg/dL (1.0-5.00) 03/28/21 05:50 Vitamin B12 851 pg/mL (232-1245) 04/06/21 03:00 Folate 6.7 ng/mL (4.5-32.2) 04/06/21 03:00 Procalcitonin 0.10 ng/mL (0-0.5) 03/31/21 04:18 TSH 0.89 uIU/mL (0.27-4.20) 03/27/21 19:06 Urine Color Yellow (Yellow) 03/28/21 03:15 Urine Appearance Sl hazy (CLEAR) 03/28/21 03:15 Urine pH 5 (5-7) 03/28/21 03:15 Ur Specific [place] 1.020 (1.005-1.030) 03/28/21 03:15 Urine Protein 3+ (Negative) H 03/28/21 03:15 Urine Glucose (UA) Norm (Normal) 03/28/21 03:15 Urine Ketones Negative (Negative) 03/28/21 03:15 Urine Blood 3+ (Negative) H 03/28/21 03:15 Urine Nitrate Negative (Negative) 03/28/21 03:15 Urine Bilirubin Neg (Negative) 03/28/21 03:15 Urine Urobilinogen Norm mg/dL (Negative) 03/28/21 03:15 Ur Leukocyte Esterase Negative (Negative) 03/28/21 03:15 Urine RBC 0-4 /hpf (0-2) H 03/28/21 03:15 Urine WBC 0-4 /hpf (0-5) H 03/28/21 03:15 Ur Squamous Epith Cells 0-4 /hpf (0-5) H 03/28/21 03:15 Ur Renal Epithelial Cell 0 /hpf 03/28/21 03:15 Calcium Oxalate Crystal 0-4 /hpf H 03/28/21 03:15 Amorphous Sediment 3+ /hpf 03/28/21 03:15 Urine Bacteria Trace /hpf (NONE) 03/28/21 03:15 Coarse Granular Casts 0-4 /lpf H 03/28/21 03:15 Ur Random Sodium 14 mmol/L 03/28/21 03:15 Ur Random Potassium 62 mmol/L 03/28/21 03:15 Ur Random Chloride 12 mmol/L 03/28/21 03:15 Urine Creatinine 160 mg/dL (39-259) 03/28/21 03:15 Impressions Chest CTA 03/28/21 00:03 IMPRESSION: 1. No pulmonary embolism. 2. Hazy bilateral pulmonary opacities which are consistent with COVID-19. 3. Small hiatal hernia. Radiation Dose CTDIVOL = (mGy): DLP = 597.74 (mGy-cm) Head/Neck Ultrasound 04/03/21 17:42 IMPRESSION: Indeterminate left neck mass measuring nearly 3 cm in size. This does not appear to originate from the thyroid. Further evaluation with CT is recommended. Soft Tissue Neck X-Ray 04/03/21 17:42 IMPRESSION: Limited evaluation of left neck mass due to modality and overlying medical equipment. For further evaluation, would recommend CT of the neck. Neck CT 04/10/21 09:19 IMPRESSION: 1. No evidence of neck mass that would correspond to the previously described ultrasound findings. 2. Thyroid is normal in appearance. 3. A few prominent mediastinal lymph nodes at the thoracic inlet likely reactive. 4. Hazy ground glass infiltrates in the lung apices compatible with COVID 19 Pneumonia. 5. Endotracheal tube with tip above the can. Partially visualized enteric tube. 6. Left IJ catheter extends into the innominate and SVC off the [id number]. Chest X-Ray 04/10/21 09:48 IMPRESSION: 1. OG tube has been placed and is looped in the gastric cardia. 2. Persistent infiltrates in the visualized mid and lower lung zones as noted above. Micro: Microbiology 04/09/21 13:40 Gram Stain - Final Sputum - Endotracheal Tube Aspirate A&P Assessment and plan (1) Acute hypoxemic respiratory failure due to severe acute respiratory syndrome coronavirus 2 (SARS-CoV-2) disease: Status: Acute (2) Acute kidney injury: Status: Acute (3) Hyponatremia: Status: Acute (4) COVID-19: Status: Acute (5) Ischemic cardiomyopathy: Status: Acute (6) Benign essential HTN: Status: Acute (7) Counseling regarding advanced directives and goals of care: Status: Acute #Acute hypoxic respiratory failure secondary to ARDS due to COVID-19 pneumonia #Concern for alcohol withdrawal -as patient takes alcohol every night -Symptoms started 03/20/2021 -Test + 03/26/2021, CT 03/28/2020 were negative for pulmonary embolism -Intubated 04/02/2021 -day 8 of intubation -Completed 3 proning sessions -Currently on CMV-450/10/50 % and ABG 7.4 4/37/64/25 -Chest x-ray increased bilateral pulmonary infiltrates with progressive pneumonitis not excluded -Off paralytic and Versed, tapering of fentanyl, propofol and if needed start on Precedex, Ativan as needed for withdrawal given his history of alcohol; earlier received 1 dose of phenobarbital 130 MCG for alcohol withdrawal -Seroquel 25 mg at bedtime -DuoNeb every 4 scheduled, Pulmicort 0.5 twice daily scheduled -S/p dexamethasone 6 mg daily & Completed remdesivir 5-day course and extended 5 more days -Completed adequate Rocephin and azithromycin for empiric coverage -So far bacterial antigens, MRSA in nares, Legionella urine antigen, sputum culture, blood cultures, TTE negative -CRP 91 -Currently on Lovenox for DVT prophylaxis - fever spikes-on 04/06/2021-cultures 04/06/2021-negative so far; another low-grade temp today-sputum cultures negative #Ischemic cardiomyopathy - 12/22/2020 stress test-large area of old myocardial infarction versus scarring -12/22/2020 echo-normal LV cavity size with EF estimated 45% -Aspirin 81/Imdur 30/metoprolol 50/atorvastatin 20 -Keep net negative to even -Lasix as needed # Hypokalemia-resolved -Supplemented-monitor #Deranged LFTs likely secondary to COVID-19 pneumonia-normalized -Monitor LFTs #Neck swelling -Soft tissue neck x-ray limited evaluation of left neck mass due to modality and overlying medical equipment -Solid-appearing left neck mass measuring 2.9 x 2.7 cm of unclear origin, does not appear to originate from the thyroid. - Further evaluation with CT is recommended and patient is stable #Initial 2 days there was difficulty passing NG tube, later successfully inserted and advanced. Continue tube feeding #Glucose well controlled #GI prophylaxis famotidine #DVT prophylaxis-Lovenox 40 #Full code #Family updated #Prognosis guarded 04/10/2021: Discussed with about patient's medical condition. Currently is requiring 50% FiO2 on ventilator and has very slow recovery to adequate mentation. We will continue to do awakening trial and if he continues to require 50-60 FiO2 on ventilator-we will plan to do tracheostomy and send patient to long-term acute care facility. Patient verbalized understanding and agreed with the plan. Recommendations conveyed to hospitalist, RN, RT taking care of the patient Attestations Medical Necessity Statement*: Acute hypoxic respiratory failure secondary to ARDS due to COVID-19 pneumonia-intubated and mechanically ventilated and currently being proned still requiring high FiO2 Time Spent in Patient Care: Greater than 35 minutes (>than 50% of time spent in counselling and/or direct pt care on unit). Critical Care Time: The high probability of a clinically significant, sudden or life threatening deterioration of the patient's [pulmonary, neurological] system(s) required my full and direct attention, intervention and personal management. The critical care time is as shown. This time is in addition to time spent performing any reported procedures but includes the following: [x] Data and vital sign review and interpretation [x] Patient assessment, examination and intervention [x] Documentation [x] Medication orders and management Critical Care Time (min): 60 Coding Level of Care Code Established Pt Acute Transfer Professor for Chg Fwd Patient Type Established History Comprehensive Exam Comprehensive Medical Decision Making High Complexity Diagnoses Acute hypoxemic respiratory failure due to severe acute respiratory syndrome coronavirus 2 (SARS-CoV-2) disease U07.1; J96.01 Acute kidney injury N17.9 Hyponatremia E87.1 COVID-19 U07.1 Ischemic cardiomyopathy I25.5 Benign essential HTN I10 Counseling regarding advanced directives and goals of care Z71.89 Time Spent (min) 60
[2021-04-11] VITALS (64 sets, daily range): BP systolic 79–124; BP diastolic 48–78; PULSE 74–102; RESP 14–26; TEMP 36.9–38.1; O2SAT 88–96
[2021-04-11] MEDS: propofol 1,000 MG/100 ML INJ 17.18 MG IV (01:26)
[2021-04-11] MEDS: ipratropium-albuterol 3 mL Neb INHALATION ×5 (03:47→19:43)
[2021-04-11 04:19] LABS: Basophils % 0.1 %; Eosinophils # 0.1 10^3/uL (0.0-0.8); Eosinophils % 1.4 %; Hematocrit 34.8 % (42.0-52.0); Hemoglobin 11.1 g/dL (11.7-16.6); Lymphocytes # 0.4 10^3/uL (0.8-4.8); Lymphocytes % 4.5 %; Mean Corpuscular HGB Conc 31.9 g/dL (30.0-36.0); Mean Corpuscular Hemoglobin 33.7 pg (28.0-34.0); Mean Corpuscular Volume 105.8 fl (80-94); Mean Platelet Volume 10.6 fL (7.4-10.4); Monocytes # 0.3 10^3/uL (0.2-0.9); Monocytes % 2.9 %; Neutrophils # 8.73 10^3/uL (1.8-7.7); Neutrophils % 90.4 %; Nucleated Red Blood Cells % 0 %; Platelet Count 265 10^3/cmm (130-400); Red Blood Count 3.29 10^6/uL (4.1-5.3); Red Cell Distribution Width 12.4 % (12.1-15.1); White Blood Count 9.7 10^3/uL (4.0-10.0)
[2021-04-11 04:39] LABS: Alanine Aminotransferase 29 U/L (0-41); Albumin Level 2.3 g/dL (3.5-5.2); Alkaline Phosphatase 83 IU/L (40-130); Anion Gap 14.7 (5-19); Aspartate Amino Transferase 35 U/L (0-40); Blood Urea Nitrogen 23 mg/dL (8-23); Calcium 8.4 mg/dL (8.5-10.5); Carbon Dioxide 26 mmol/L (22-29); Chloride 101 mmol/L (98-107); Globulin 4.1 g/dL (1.3-4.6); Glucose 83 mg/dL (65-115); Osmolality Calculated 289 mOsm/kg (285-295); Potassium 3.7 mmol/L (3.5-5.1); Sodium 138 mmol/L (136-145); Total Bilirubin 1.5 mg/dL (0.15-1.2); Total Protein 6.4 g/dL (6.6-8.7)
[2021-04-11 04:42] LABS: ABG PCO2 40.8 mmHg (35-45); ABG PH Result 7.41 (7.35-7.45); Arterial Blood Gas Hematocrit 44.4 % (42-52); Base Excess ABG 0.7 mmol/L (-2.0-2.0); Blood Gas Allen Test Pos; Blood Gas Sample Site Radial, right; Blood Gas Sample Type Arterial; Blood Gas Tidal Volume 0.45; HCO3 ABG 25.6 mmol/L (22-26); Oxygen Device VENT; PO2 ABG 82.7 mmHg (80.0-100.0)
[2021-04-11] MEDS: famotidine 20 mg/2 mL INJ IVP ×2 (06:01→20:26)
--- NOTE | 2021-04-11 06:08 | PC.NURSE ---
Shift Note Frequent safety and comfort rounds continue. Orders and/or nursing care completed as indicated. Patient monitored for response to intervention and treatment(s). Education provided includes tube feeding diet. Patient and/or food service representative reinforcement needed. Will continue to monitor.
--- NOTE | 2021-04-11 07:00 | XR_ITS ---
WS: [id number] Exam: XR chest 1V portable [id number] Date/Time of Exam: 04/11/2021 5:17 AM Reason For Exam: resp failure Comparison 04/10/2021. Patchy bilateral groundglass infiltrates noted throughout both lungs. No significant change. The lung s are fully expanded. No pleural effusions. Cardiomediastinal structures are unremarkable in appearan ce. ET tube ends about 3 cm above the can in satisfactory position. A left-sided central line ends in the lower one third of the SVC. An enteric tube is looped in the stomach. Monitoring leads superi mpose the chest. XR/XR chest 1V portable [id number] IMPRESSION: 1. Bilateral pulmonary infiltrates showing little change since prior study. 2. ET tube, central line and enteric tube all appear to be in satisfactory loca tion.
[2021-04-11] MEDS: propofol 1,000 MG/100 ML INJ 20.04 MG IV ×2 (07:14→21:55)
--- NOTE | 2021-04-11 07:52 | P.PN_ITS ---
Subjective Subjective: Interval history: Christopher is sedated on the ventilator. No issues overnight. Medications: Reviewed: Yes Vitals/I&O/Wt Last Vital Signs Temp 97.8 F 04/10/21 19:15 Pulse 92 04/11/21 07:49 Resp 24 H 04/11/21 07:46 BP 110/64 04/11/21 06:00 Pulse Ox 96 04/11/21 07:46 04/10/21 04/11/21 04/11/21 22:59 06:59 14:59 Intake Total 379.389 / 560.445 273.631 / 834.076 244.747 / 244.747 Output Total 400 / 1900 450 / 2350 Balance -20.611 / -1339.555 -176.369 / -1515.924 244.747 / 244.747 Weight last 48 hrs Weight 85.275 kg Weight 83.461 kg Physical Exam Narrative: EXAM NARRATIVE: General exam no distress, tube feeds going at 15 cc. Does not appear to be on norepinephrine. Neck is supple no lymphadenopathy or thyromegaly Cardiovascular regular rate and rhythm without murmur Lungs clear Abdomen is soft, positive bowel sounds Extremities no cyanosis clubbing or edema Urinary Catheter Management^: Mullen: Cath Placed During This Visit: yes, but has since been removed by the nurse Reason for Continuing Indwelling Catheter: Accurate Measurement of Urinary Out put in Critically Ill Patients Urinary Catheter Date of Insertion: 04/06/21 Urinary Catheter Time of Insertion: 11:09 Date Urinary Catheter Removed: 04/06/21 Time Urinary Catheter Discontinued: 11:07 Data : 04/11/21 04:00 04/11/21 04:00 Other data: Chest x-ray today with normal tube placement. Severe pneumonitis noted. No pneumothorax. ABG reviewed. Improved. A&P Assessment and plan (1) Hypoxemia: Hypoxic respite failure with ARDS secondary to severe COVID-19. Appreciate pulmonary critical care consultation. He has completed his course of remdesivir, and dexamethasone Azithromycin, ceftriaxone discontinued. He has completed an adequate course. Monitor for any fever, worsening respiratory status Wean FiO2 as tolerated. I have decreased this to 55% this morning. Status: Acute (2) COVID-19: Severe COVID-19 with ARDS. As above. Status: Acute (3) Ischemic cardiomyopathy: No symptoms currently Status: Acute (4) Acute kidney injury: Resolved. Status: Acute (5) Hyponatremia: Resolved. Status: Acute (6) Atherosclerosis of coronary artery of [place] heart without angina pectoris: Continue cardiac medications. Status: Acute Qualifiers: Coronary Disease-Associated Artery/Lesion type: unspecified vessel or lesion type Qualified Code(s): I25.10 - Atherosclerotic heart disease of [place] coronary artery without angina pectoris (7) Dyslipidemia: Status: Acute (8) Benign essential HTN: Status: Acute (9) Neck mass: Indeterminate left neck mass measuring nearly 3 cm in size, does not appear to originate from the thyroid. CT scan performed today demonstrates no mass Status: Acute (10) Fever: Currently resolved. Monitor for any recurrence. Status: Acute Additional A&P Information Hypokalemia, corrected Overall plan, is to try to transfer to long-term care for rehabilitation. Will likely need PEG tube and tracheostomy. Attestations Medical Necessity Statement*: Needs continued hospitalization secondary to severe COVID-19 pneumonia requiring mechanical ventilation. Critical Care Time: The high probability of a clinically significant, sudden or life threatening deterioration of the patient's [pulmonary, cardiovascular] system(s) required my full and direct attention, intervention and personal management. The critical care time is as shown. This time is in addition to time spent performing any reported procedures but includes the following: [x] Data and vital sign review and interpretation [x] Patient assessment, examination and intervention [x] Documentation [x] Medication orders and management Critical Care Time (min): 31 Coding Level of Care Code Acute Ssrs Report Developer for [facility] Fwd Diagnoses Hypoxemia R09.02 COVID-19 U07.1 Ischemic cardiomyopathy I25.5 Acute kidney injury N17.9 Hyponatremia E87.1 Atherosclerosis of coronary artery of [place] heart without angina pectoris I25.10 Coronary Disease-Associated Artery/Lesion type: unspecified vessel or lesion type Dyslipidemia E78.5 Benign essential HTN I10 Neck mass R22.1 Fever R50.9
[2021-04-11] MEDS: ferrous gluconate 324 mg Tablet PO (08:23)
[2021-04-11] MEDS: guaiFENesin 600 mg Tablet 1200 MG PO (08:23)
[2021-04-11] MEDS: isosorbide mononitrate ER 30 mg Tablet PO (08:23)
[2021-04-11] MEDS: folic acid 1 mg Tablet PO (08:23)
[2021-04-11] MEDS: atorvastatin 40 mg Tablet 20 MG PO (08:23)
[2021-04-11] MEDS: metoprolol succinate ER (24 HR) 50 mg Tablet PO (08:23)
[2021-04-11] MEDS: aspirin 81 mg EC Tablet PO (08:23)
[2021-04-11] MEDS: thiamine 100 mg Tablet PO (08:23)
[2021-04-11] MEDS: multivitamin therapeutic Tablet 1 TAB PO (08:23)
[2021-04-11] MEDS: budesonide 0.5 mg/2 mL Neb INHALATION ×2 (08:56→19:43)
[2021-04-11] MEDS: enoxaparin 40 mg/0.4 mL Syringe SUBCUT (10:28)
[2021-04-11] MEDS: propofol 1,000 MG/100 ML INJ 22.91 MG IV (11:33)
[2021-04-11] MEDS: dexmedetomidine 400 MCG in sodium chloride 0.9% (100 ml) 100 ML 6.44 MCG IV (12:50)
--- NOTE | 2021-04-11 14:08 | PC.NURSE ---
Tube feeding held per MD FINK prior to possible trach placement
[2021-04-11] MEDS: propofol 1,000 MG/100 ML INJ 28.63 MG IV ×2 (15:01→18:12)
--- NOTE | 2021-04-11 16:31 | PC.NUTR ---
Tube feeding recommendations: No nutritional provision 04/03-04/09 (7 days).TF initiated 04/10, but only received 15 ml total on that day per chart (18 calories). Received 180 ml today 04/11 (216 kcal) but feedings stopped at this time for trach placement per nurse. Propofol at current rate providing 756 kcal/day. Continue to recommend checking triglycerides. Noted possiblity of PEG placement. Recommend goal of 70 ml/hr (1680 ml total feeding volume per day). Would recommend continuous or intermittent feeds initially (not bolus) due to extended time period of no nutritional provision. Suggest transition to bolus gradually as tolerated. RD available for further recommendations as needed. See full RD assessments for further details.
[2021-04-11] MEDS: rocuronium 10 mg/mL INJ 5mL 100 MG IV (18:13)
--- NOTE | 2021-04-11 18:13 | PC.NURSE ---
Shift Note Frequent safety and comfort rounds continue. Orders and/or nursing care completed as indicated. Patient monitored for response to intervention and treatment(s). Education provided includes treatment plan, placement of tracheostomy, and medication adjustment. verbalizes understanding. MD at bedside placing trach. RT, another MD and nurse also at bedside. Pt given paralytic per orders. BIS monitor in place, WNL. VSS. Will continue to monitor.
--- NOTE | 2021-04-11 18:42 | XRR_ITS ---
PROCEDURE INFORMATION: Exam: XR Chest Exam date and time: 04/11/2021 6:42 PM Age: 60 years old Clinical indication: Device placement; Tracheostomy placement or adjustment; Patient HX: Covid+; Additional info: Post tracheostomy placement TECHNIQUE: Imaging protocol: XR of the chest. Views: 1 view. COMPARISON: CR XR chest 1V portable [id number] 04/11/2021 5:26 AM FINDINGS: Tubes, catheters and devices: Endotracheal tube removal. Instructor Private mint of tracheostomy catheter. Left neck central venous catheter terminates mid SVC stable from prior; Enteric tube coiling in the gastric fundus stable from prior. Lungs: Diffusely increased coarsened reticular interstitial lung changes. Patchy ground-glass opacities broadly. Reduced lung volumes. Pleural spaces: Unremarkable. No pleural effusion. No pneumothorax. Heart/Mediastinum: Unremarkable. No cardiomegaly. Bones/joints: Unremarkable. XR/XR chest 1V portable [id number] IMPRESSION: 1. Satisfactory tracheostomy placement. 2. No change in widespread airspace disease.
--- NOTE | 2021-04-11 18:50 | PM.ACPR ---
Procedure/Consent Time out: Time Out Performed: Yes Consent: Consent for Procedure: Consent obtained from other (indicate) () Procedure Narrative: Name of the procedure: Percutaneous tracheostomy. Indication: Prolonged mechanical ventilation. Medications: 1% lidocaine 10 mL, the patient was sedated and paralyzed in the intensive care unit. Description of the procedure: The thyroid cartilage, cricoid cartilage and suprasternal notch was identified and marked. A high-frequency ultrasound probe was also used to confirm the anatomic landmarks. The neck was extended by putting a roll under his shoulder. The bronchoscope was introduced through the endotracheal tube. The endotracheal tube was pulled until it reached the subglottic area. A good visualization of the upper trachea was obtained with the bronchoscope. The site was prepared using sterile technique. The skin and subcutaneous tissue was anesthetized with 1% lidocaine. A vertical incision was made in the midline overlying the second and third tracheal ring. The incision was bluntly dissected with a hemostat. The needle was then inserted in between the second and third tracheal ring. The tip of the needle was noted in the center of the upper trachea. The guidewire was then introduced. Using modified Seldinger technique a size 6 Shiley tracheostomy tube was inserted. Post procedure bronchoscopy through the tracheostomy tube revealed good positioning of the distal end of the tracheostomy tube. The tracheostomy tube was in the lumen and not touching the ridley. The tracheostomy tube was secured with 2 sutures and tracheostomy tie. Blood loss: 2 mL. Complications: None. Chest x-ray: Pending Acute Procedures Epistaxis Control: Time out performed: Yes
[2021-04-11] MEDS: quetiapine 25 mg Tablet PO (20:26)
[2021-04-11] MEDS: benzonatate 100 mg Capsule PO (20:26)
--- NOTE | 2021-04-11 21:02 | PC.NURSE ---
patient bathed and linens changed at this time. trach care performed
--- NOTE | 2021-04-11 22:34 | P.PN_ITS ---
Subjective Subjective: Interval history: -Patient seen at bedside today -No overnight issues-still sedated and on gradual weaning trial -Still requiring 50% FiO2 on ventilator -Today evening placed a tracheostomy -Labs and imaging reviewed Medications: Reviewed: Yes Vitals/I&O/Wt Last Vital Signs Temp 98.5 F 04/11/21 22:00 Pulse 81 04/11/21 22:00 Resp 14 04/11/21 22:03 BP 107/72 04/11/21 22:00 Pulse Ox 94 04/11/21 22:03 04/11/21 04/11/21 04/11/21 06:59 14:59 22:59 Intake Total 273.631 / 834.076 448.747 / 448.747 689.536 / 1138.283 Output Total 450 / 2350 425 / 425 Balance -176.369 / -1515.924 448.747 / 448.747 264.536 / 713.283 Weight last 48 hrs Weight 188 lb Weight 184 lb Physical Exam Narrative: EXAM NARRATIVE: General: lying in bed, sedated and intubated. HEENT:NCAT, PERRLA, EOMI Neck: Supple Lungs: Bilateral diffuse coarse crackles Heart: s1/s2, RRR Abd: soft, NT, ND, BS + Normoactive Extremities: No edema SENIOR LABORATORY TECHNICIAN: sedated and limited SENIOR LABORATORY TECHNICIAN exam possible. SKIN: no rash LDA: # CVC: Left internal jugular vein 04/03/2021 # A line: Right radial arterial line 04/03/2021 Urinary Catheter Management^: Mullen: Cath Placed During This Visit: yes, but has since been removed by the nurse Reason for Continuing Indwelling Catheter: Accurate Measurement of Urinary Output in Critically Ill Patients Urinary Catheter Date of Insertion: 04/06/21 Urinary Catheter Time of Insertion: 11:09 Date Urinary Catheter Removed: 04/06/21 Time Urinary Catheter Discontinued: 11:07 Data : 04/12/21 05:41 04/12/21 05:41 Other Labs: Laboratory Results WBC 9.7 10^3/uL (4.0-10.0) 04/11/21 04:00 Corrected WBC Cancelled 03/27/21 15:45 RBC 3.29 10^6/uL (4.1-5.3) L 04/11/21 04:00 Hgb 11.1 g/dL (11.7-16.6) L 04/11/21 04:00 Hct 34.8 % (42.0-52.0) L 04/11/21 04:00 MCV 105.8 fl (80-94) H 04/11/21 04:00 MCH 33.7 pg (28.0-34.0) 04/11/21 04:00 MCHC 31.9 g/dL (30.0-36.0) 04/11/21 04:00 RDW 12.4 % (12.1-15.1) 04/11/21 04:00 Plt Count 265 10^3/cmm (130-400) 04/11/21 04:00 MPV 10.6 fL (7.4-10.4) H 04/11/21 04:00 Gran % Cancelled 03/27/21 15:45 Neut % (Auto) 90.4 % 04/11/21 04:00 Lymph % (Auto) 4.5 % 04/11/21 04:00 Ward % (Auto) 2.9 % 04/11/21 04:00 Eos % (Auto) 1.4 % 04/11/21 04:00 Baso % (Auto) 0.1 % 04/11/21 04:00 Neut # (Auto) 8.73 10^3/uL (1.8-7.7) H 04/11/21 04:00 Lymph # (Auto) 0.4 10^3/uL (0.8-4.8) L 04/11/21 04:00 Ward # (Auto) 0.3 10^3/uL (0.2-0.9) 04/11/21 04:00 Eos # (Auto) 0.1 10^3/uL (0.0-0.8) 04/11/21 04:00 Baso # (Auto) 0.0 10^3/uL (0.0-0.1) 04/11/21 04:00 Absolute Gran (auto) Cancelled 03/27/21 15:45 Nucleated RBC % (auto) 0 % 04/11/21 04:00 Nucleated RBCs # 0.0 /100WBC 04/11/21 04:00 ESR 57 mm/hr (0-10) H 04/03/21 04:45 D-Dimer 3.10 ug/mIFEU (0-0.59) H 04/05/21 03:57 Specimen Type Arterial 04/11/21 04:15 Sample Site Radial, right 04/11/21 04:15 ABG pH 7.41 (7.35-7.45) 04/11/21 04:15 ABG pCO2 40.8 mmHg (35-45) 04/11/21 04:15 ABG pO2 82.7 mmHg (80.0-100.0) 04/11/21 04:15 ABG HCO3 25.6 mmol/L (22-26) 04/11/21 04:15 ABG O2 Saturation 98.9 04/04/21 03:46 ABG Base Excess 0.7 mmol/L (-2.0-2.0) 04/11/21 04:15 Hoang Test Pos 04/11/21 04:15 A-a O2 Gradient 43.2 mmHg (5-10) H 04/04/21 03:46 Hematocrit 44.4 % (42-52) 04/11/21 04:15 Hgb O2 Saturation 97.8 % (95-100) 04/04/21 03:46 Carboxyhemoglobin 0.1 %THgb (0.4-20.1) L 04/04/21 03:46 Methemoglobin 1.1 % (0.4-1.5) 04/04/21 03:46 Total Hemoglobin 13.9 g/dL (14-18) L 04/04/21 03:46 Sodium 141.0 mmol/L (131-143) 04/04/21 03:46 Potassium 4.0 mmol/L (3.5-5.0) 04/04/21 03:46 Glucose 141.0 mg/dL (70-115) H 04/04/21 03:46 Ionized Calcium 1.2 mmol/L (1.1-1.4) 04/04/21 03:46 Respiration Rate 14.0 % 04/07/21 04:37 O2 Delivery Device Vent 04/11/21 04:15 O2 Liters/Min 15.0 % 04/02/21 21:49 Vent Mode Cmv 04/07/21 04:37 Mechanical Rate 14.0 04/07/21 04:37 FiO2 60.0 % 04/11/21 04:15 Tidal Volume 0.45 04/11/21 04:15 PEEP 10.0 cmH20 04/11/21 04:15 Specimen Drawn By Chandni 04/07/21 04:37 Commercial Property Manager NEDA alonso 04/11/21 04:15 Sodium 138 mmol/L (136-145) 04/11/21 04:00 Potassium 3.7 mmol/L (3.5-5.1) 04/11/21 04:00 Chloride 101 mmol/L (98-107) 04/11/21 04:00 Carbon Dioxide 26 mmol/L (22-29) 04/11/21 04:00 Anion Gap 14.7 (5-19) 04/11/21 04:00 BUN 23 mg/dL (8-23) 04/11/21 04:00 Creatinine 0.6 mg/dL (0.7-1.2) L 04/11/21 04:00 GFR Calculation 137.0 mL/min (90-130) H 04/11/21 04:00 Glucose 83 mg/dL (65-115) 04/11/21 04:00 Estimat Average Glucose 123 03/28/21 05:50 Hemoglobin A1c 5.9 % (4.0-6.0) 03/28/21 05:50 Calculated Osmolality 289 mOsm/kg (285-295) 04/11/21 04:00 Lactic Acid 1.8 mmol/L (0.5-2.2) 03/27/21 15:45 Calcium 8.4 mg/dL (8.5-10.5) L 04/11/21 04:00 Phosphorus 3.9 mg/dL (2.5-4.5) 03/28/21 05:50 Magnesium 2.4 mg/dL (1.7-2.3) H 04/06/21 03:00 Iron 32 ug/dL (59-158) L 03/27/21 19:06 TIBC 190 mcg/dl 03/27/21 19:06 % Saturation 16.8 % (20-50) L 03/27/21 19:06 Unsat Iron Binding 158 ug/dL (112-347) 03/27/21 19:06 Ferritin 2350 ng/mL (30-400) H 03/30/21 05:23 Total Bilirubin 1.5 mg/dL (0.15-1.2) H 04/11/21 04:00 AST 35 U/L (0-40) 04/11/21 04:00 ALT 29 U/L (0-41) 04/11/21 04:00 Alkaline Phosphatase 83 IU/L (40-130) 04/11/21 04:00 Creatine Kinase 100 U/L (39-308) 03/30/21 05:23 Troponin T Baseline 12 ng/L (0-15) 03/27/21 16:21 Troponin T 120 Minute 12.00 ng/L (0-15) 03/27/21 18:24 Delta Troponin T 0 ABS# (0-10) 03/27/21 18:24 C-Reactive Protein 91.9 mg/L (0.0-4.9) H 04/03/21 04:45 C-Reactive Protein Cancelled 04/03/21 04:45 NT-Pro-B Natriuret Pep 1027 pg/mL (0-125) H 04/03/21 04:45 NT-Pro-B Natriuret Pep Cancelled 04/03/21 04:45 Total Protein 6.4 g/dL (6.6-8.7) L 04/11/21 04:00 Albumin 2.3 g/dL (3.5-5.2) L 04/11/21 04:00 Globulin 4.1 g/dL (1.3-4.6) 04/11/21 04:00 Triglycerides 75 mg/dL (0-150) 03/28/21 05:50 Cholesterol 115 mg/dL (0-200) 03/28/21 05:50 LDL Cholesterol, Calc 67 mg/dL (50-129) 03/28/21 05:50 Total VLDL Cholesterol 15 mg/dL (0-30) 03/28/21 05:50 HDL Cholesterol 33 mg/dL (60-100) L 03/28/21 05:50 Cholesterol/HDL Ratio 3.48 mg/dL (1.0-5.00) 03/28/21 05:50 Vitamin B12 851 pg/mL (232-1245) 04/06/21 03:00 Folate 6.7 ng/mL (4.5-32.2) 04/06/21 03:00 Procalcitonin 0.10 ng/mL (0-0.5) 03/31/21 04:18 TSH 0.89 uIU/mL (0.27-4.20) 03/27/21 19:06 Urine Color Yellow (Yellow) 03/28/21 03:15 Urine Appearance Sl hazy (CLEAR) 03/28/21 03:15 Urine pH 5 (5-7) 03/28/21 03:15 Ur Specific [place] 1.020 (1.005-1.030) 03/28/21 03:15 Urine Protein 3+ (Negative) H 03/28/21 03:15 Urine Glucose (UA) Norm (Normal) 03/28/21 03:15 Urine Ketones Negative (Negative) 03/28/21 03:15 Urine Blood 3+ (Negative) H 03/28/21 03:15 Urine Nitrate Negative (Negative) 03/28/21 03:15 Urine Bilirubin Neg (Negative) 03/28/21 03:15 Urine Urobilinogen Norm mg/dL (Negative) 03/28/21 03:15 Ur Leukocyte Esterase Negative (Negative) 03/28/21 03:15 Urine RBC 0-4 /hpf (0-2) H 03/28/21 03:15 Urine WBC 0-4 /hpf (0-5) H 03/28/21 03:15 Ur Squamous Epith Cells 0-4 /hpf (0-5) H 03/28/21 03:15 Ur Renal Epithelial Cell 0 /hpf 03/28/21 03:15 Calcium Oxalate Crystal 0-4 /hpf H 03/28/21 03:15 Amorphous Sediment 3+ /hpf 03/28/21 03:15 Urine Bacteria Trace /hpf (NONE) 03/28/21 03:15 Coarse Granular Casts 0-4 /lpf H 03/28/21 03:15 Ur Random Sodium 14 mmol/L 03/28/21 03:15 Ur Random Potassium 62 mmol/L 03/28/21 03:15 Ur Random Chloride 12 mmol/L 03/28/21 03:15 Urine Creatinine 160 mg/dL (39-259) 03/28/21 03:15 Impressions Chest CTA 03/28/21 00:03 IMPRESSION: 1. No pulmonary embolism. 2. Hazy bilateral pulmonary opacities which are consistent with COVID-19. 3. Small hiatal hernia. Radiation Dose CTDIVOL = (mGy): DLP = 597.74 (mGy-cm) Head/Neck Ultrasound 04/03/21 17:42 IMPRESSION: Indeterminate left neck mass measuring nearly 3 cm in size. This does not appear to originate from the thyroid. Further evaluation with CT is recommended. Soft Tissue Neck X-Ray 04/03/21 17:42 IMPRESSION: Limited evaluation of left neck mass due to modality and overlying medical equipment. For further evaluation, would recommend CT of the neck. Neck CT 04/10/21 09:19 IMPRESSION: 1. No evidence of neck mass that would correspond to the previously described ultrasound findings. 2. Thyroid is normal in appearance. 3. A few prominent mediastinal lymph nodes at the thoracic inlet likely [place]an[place] ctive. 4. Hazy ground glass infiltrates in the lung apices compatible with COVID 19 Pneumonia. 5. Endotracheal tube with tip above the can. Partially visualized enteric tube. 6. Left IJ catheter extends into the innominate and SVC off the [id number]. Chest X-Ray 04/11/21 18:42 IMPRESSION: 1. Satisfactory tracheostomy placement. 2. No change in widespread airspace disease. Micro: Microbiology 04/09/21 13:40 Gram Stain - Final Sputum - Endotracheal Tube Aspirate Sputum Culture - Preliminary Yeast species A&P Assessment and plan (1) Acute hypoxemic respiratory failure due to severe acute respiratory syndrome coronavirus 2 (SARS-CoV-2) disease: Status: Acute (2) Acute kidney injury: Status: Acute (3) Hyponatremia: Status: Acute (4) COVID-19: Status: Acute (5) Ischemic cardiomyopathy: Status: Acute (6) Benign essential HTN: Status: Acute (7) Counseling regarding advanced directives and goals of care: Status: Acute #Acute hypoxic respiratory failure secondary to ARDS due to COVID-19 pneumonia #Concern for alcohol withdrawal -as patient takes alcohol every night -Symptoms started 03/20/2021; Test + 03/26/2021, CT 03/28/2020 were negative for pulmonary embolism -Intubated 04/02/2021 -s/p tracheostomy 04/11/2021 -Completed 3 proning sessions -Currently on CMV-450/10/60 % and ABG 7.4 // -Chest x-ray increased bilateral pulmonary infiltrates with progressive pneumonitis not excluded -Off paralytic and Versed, tapering of fentanyl, propofol and if needed start on Precedex, Ativan as needed for withdrawal given his history of alcohol; -earlier received 1 dose of phenobarbital 130 MCG for alcohol withdrawal -Seroquel 25 mg at bedtime -DuoNeb every 4 scheduled, Pulmicort 0.5 twice daily scheduled -S/p dexamethasone 6 mg daily & Completed remdesivir 5-day course and extended 5 more days -Completed adequate Rocephin and azithromycin for empiric coverage -So far bacterial antigens, MRSA in nares, Legionella urine antigen, sputum culture, blood cultures, TTE negative -CRP 91 -Currently on Lovenox for DVT prophylaxis - fever spikes-on 04/06/2021-cultures 04/06/2021-negative so far; 04/09/2021 sputum cultures-grew yeast #Ischemic cardiomyopathy - 12/22/2020 stress test-large area of old myocardial infarction versus scarring -12/22/2020 echo-normal LV cavity size with EF estimated 45% -Aspirin 81/Imdur 30/metoprolol 50/atorvastatin 20 -Keep net negative to even -Lasix as needed # Hypokalemia-resolved -Supplemented-monitor #Deranged LFTs likely secondary to COVID-19 pneumonia-normalized -Monitor LFTs #Neck swelling -Soft tissue neck x-ray: limited evaluation of left neck mass due to modality and overlying medical equipment -:Neck ultrasound: solid-appearing left neck mass measuring 2.9 x 2.7 cm of unclear origin,does not appear to originate from the thyroid. -CT neck: no evidence of neck mass that would correspond to the previously described ultrasound findings #Initial 2 days there was difficulty passing NG tube, later successfully inserted and advanced. -Currently patient has OG tube -Continue tube feeding #Glucose well controlled #GI prophylaxis famotidine #DVT prophylaxis-Lovenox 40 #Full code #Family updated #Prognosis guarded 04/10/2021: Discussed with about patient's medical condition. Currently is requiring 50% FiO2 on ventilator and has very slow recovery to adequate mentation. We will continue to do awakening trial and if he continues to require 50-60% FiO2 on ventilator-we will plan to do tracheostomy and send patient to long-term acute care facility. Patient verbalized understanding and agreed with the plan. Recommendations conveyed to hospitalist, RN, RT taking care of the patient Attestations Medical Necessity Statement*: Acute hypoxic respiratory failure secondary to ARDS due to COVID-19 pneumonia-intubated and mechanically ventilated and currently being proned still requiring high FiO2 Time Spent in Patient Care: Greater than 35 minutes (>than 50% of time spent in counselling and/or direct pt care on unit) . Critical Care Time: The high probability of a clinically significant, sudden or life threatening deterioration of the patient's [pulmonary, neurological] system(s) required my full and direct attention, intervention and personal management. The critical care time is as shown. 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
[2021-04-12] VITALS (59 sets, daily range): BP systolic 72–119; BP diastolic 46–77; PULSE 66–118; RESP 15–28; TEMP 37.2–37.9; O2SAT 86–95
[2021-04-12] MEDS: ipratropium-albuterol 3 mL Neb INHALATION ×7 (00:10→23:31)
[2021-04-12] MEDS: dexmedetomidine 400 MCG in sodium chloride 0.9% (100 ml) 100 ML 8.59 MCG IV (02:11)
[2021-04-12 04:00] LABS: ABG PCO2 36.7 mmHg (35-45); ABG PH Result 7.47 (7.35-7.45); Arterial Blood Gas Hematocrit 37.2 % (42-52); Base Excess ABG 3.1 mmol/L (-2.0-2.0); Blood Gas Sample Type Arterial; HCO3 ABG 26.8 mmol/L (22-26); PO2 ABG 54.6 mmHg (80.0-100.0)
[2021-04-12 04:01] LABS: Blood Gas Tidal Volume 0.45; Oxygen Device VENT
[2021-04-12] MEDS: propofol 1,000 MG/100 ML INJ 14.32 MG IV (04:57)
[2021-04-12] MEDS: famotidine 20 mg/2 mL INJ IVP ×2 (05:49→17:26)
--- NOTE | 2021-04-12 05:56 | PC.NURSE ---
Shift Note Frequent safety and comfort rounds continue. Orders and nursing care completed as indicated. Patient monitored for response to intervention and treatments. Education provided including tracheostomy care. Patient will need further reinforcement due to medication given. Trach site is still bleeding minimally and swelling has increased slightly. trach ties have been loosened for comfort. trach care performed with no issues noted. patient appears comfortable and sedation has continued to be weaned throughout shift. Tube feeding was not restarted due to inability to pass NG tube. Will continue to monitor.
[2021-04-12 06:17] LABS: Basophils % 0.1 %; Eosinophils # 0.1 10^3/uL (0.0-0.8); Eosinophils % 1.8 %; Hematocrit 33.6 % (42.0-52.0); Hemoglobin 10.7 g/dL (11.7-16.6); Lymphocytes # 0.4 10^3/uL (0.8-4.8); Lymphocytes % 5.5 %; Mean Corpuscular HGB Conc 31.8 g/dL (30.0-36.0); Mean Corpuscular Volume 106.7 fl (80-94); Mean Platelet Volume 10.4 fL (7.4-10.4); Monocytes # 0.4 10^3/uL (0.2-0.9); Monocytes % 5.2 %; Neutrophils # 6.35 10^3/uL (1.8-7.7); Nucleated Red Blood Cells % 0 %; Platelet Count 233 10^3/cmm (130-400); Red Blood Count 3.15 10^6/uL (4.1-5.3); Red Cell Distribution Width 12.6 % (12.1-15.1); White Blood Count 7.3 10^3/uL (4.0-10.0)
[2021-04-12 06:35] LABS: Anion Gap 12.7 (5-19); Blood Urea Nitrogen 20 mg/dL (8-23); Calcium 8.4 mg/dL (8.5-10.5); Carbon Dioxide 26 mmol/L (22-29); Chloride 104 mmol/L (98-107); Glucose 77 mg/dL (65-115); Osmolality Calculated 289 mOsm/kg (285-295); Potassium 3.7 mmol/L (3.5-5.1); Sodium 139 mmol/L (136-145)
--- NOTE | 2021-04-12 07:00 | XR_ITS ---
WS: [id number] Exam: XR chest 1V portable [id number] Date/Time of Exam: 04/12/2021 7:00 AM Reason For Exam: Respiratory failure Comparison 04/11/2021. Extensive bilateral pulmonary infiltrates are noted and show no significant change. A tracheostomy tu be is in place in satisfactory position. A left-sided IJ catheter ends in the lower one third of the SVC in satisfactory position. Heart size is normal. The mediastinum is not widened. Monitoring leads superimpose the chest. XR/XR chest 1V portable [id number] IMPRESSION: 1. Extensive bilateral pulmonary infiltrates unchanged. 2. Tracheostomy tube and central line both in satisfactory position.
[2021-04-12] MEDS: isosorbide mononitrate ER 30 mg Tablet PO (08:30)
[2021-04-12] MEDS: guaiFENesin 600 mg Tablet 1200 MG PO ×2 (08:31→17:25)
[2021-04-12] MEDS: atorvastatin 40 mg Tablet 20 MG PO (08:31)
[2021-04-12] MEDS: aspirin 81 mg EC Tablet PO (08:31)
[2021-04-12] MEDS: thiamine 100 mg Tablet PO (08:31)
[2021-04-12] MEDS: folic acid 1 mg Tablet PO (08:31)
[2021-04-12] MEDS: ferrous gluconate 324 mg Tablet PO ×2 (08:31→17:25)
[2021-04-12] MEDS: metoprolol succinate ER (24 HR) 50 mg Tablet PO (08:31)
[2021-04-12] MEDS: multivitamin therapeutic Tablet 1 TAB PO (08:31)
[2021-04-12] MEDS: budesonide 0.5 mg/2 mL Neb INHALATION ×2 (08:38→20:29)
[2021-04-12] MEDS: enoxaparin 40 mg/0.4 mL Syringe SUBCUT (09:38)
[2021-04-12] MEDS: dexmedetomidine 400 MCG in sodium chloride 0.9% (100 ml) 100 ML 15.03 MCG IV (12:51)
--- NOTE | 2021-04-12 13:31 | PC.NURSE ---
Charge nurse attempted NGT placement earlier without success. MD attempted placement placement with glidescope at this time. Tube curled up into mouth. Tune removed, MD will attempt placement later. Tf to be stopped at 1500 per orders.
[2021-04-12] MEDS: propofol 1,000 MG/100 ML INJ 11.45 MG IV (14:59)
--- NOTE | 2021-04-12 16:02 | PC.NURSE ---
Large clot suctioned out of patients mouth as well as dark, red bloody liquid from mouth. VSS, will monitor.
--- NOTE | 2021-04-12 16:05 | PM.PN ---
Subjective Subjective: Interval history: Patient sedated. Tracheostomy occurred last night. Medications: Reviewed: Yes Vitals/I&O/Wt Last Vital Signs Temp 100.0 F H 04/12/21 16:00 Pulse 88 04/12/21 16:00 Resp 23 H 04/12/21 15:16 BP 85/56 04/12/21 16:00 Pulse Ox 92 04/12/21 15:16 04/12/21 04/12/21 04/12/21 06:59 14:59 22:59 Intake Total 195.244 / 1333.527 250.888 / 250.888 Output Total 475 / 900 Balance -279.756 / 433.527 250.888 / 250.888 Weight last 48 hrs Weight 86.863 kg Weight 85.275 kg Physical Exam Narrative: EXAM NARRATIVE: General exam no distress Neck is supple no lymphadenopathy or thyromegaly. Tracheostomy noted Cardiovascular regular rate and rhythm without murmur Lungs clear Abdomen is soft, positive bowel sounds Extremities no cyanosis clubbing or edema Urinary Catheter Management^: Mullen: Cath Placed During This Visit: yes, but has since been removed by the nurse Reason for Continuing Indwelling Catheter: Accurate Measurement of Urinary Output in Critically Ill Patients Urinary Catheter Date of Insertion: 04/06/21 Urinary Catheter Time of Insertion: 11:09 Date Urinary Catheter Removed: 04/06/21 Time Urinary Catheter Discontinued: 11:07 Data : 04/12/21 05:41 04/12/21 05:41 Micro: Microbiology 04/09/21 13:40 Gram Stain - Final Sputum - Endotracheal Tube Aspirate Sputum Culture - Preliminary Yeast species 04/06/21 14:10 Blood Culture - Final Blood NO GROWTH AFTER 5 DAYS 04/06/21 14:05 Blood Culture - Final Blood NO GROWTH AFTER 5 DAYS A&P Assessment and plan (1) Hypoxemia: Hypoxic respite failure with ARDS secondary to severe COVID-19. Appreciate pulmonary critical care consultation. He has completed his course of remdesivir, and dexamethasone Azithromycin, ceftriaxone discontinued. He has completed an adequate course. Monitor for any fever, worsening respiratory status Wean FiO2 as tolerated. Tracheostomy performed late April 11 Status: Acute (2) COVID-19: Severe COVID-19 with ARDS. As above. Status: Acute (3) Ischemic cardiomyopathy: No symptoms currently Status: Acute (4) Acute kidney injury: Resolved. Status: Acute (5) Hyponatremia: Resolved. Status: Acute (6) Atherosclerosis of coronary artery of [place] heart without angina pectoris: Continue cardiac medications. Status: Acute Qualifiers: Coronary Disease-Associated Artery/Lesion type: unspecified vessel or lesion type Qualified Code(s): I25.10 - Atherosclerotic heart disease of [place] coronary artery without angina pectoris (7) Dyslipidemia: Status: Acute (8) Benign essential HTN: Status: Acute (9) Neck mass: Indeterminate left neck mass measuring nearly 3 cm in size, does not appear to originate from the thyroid. CT scan performed today demonstrates no mass Status: Acute (10) Fever: Currently resolved. Monitor for any recurrence. Temperature spike noted today. Recent sputum culture from April 09 growing yeast. Fluconazole initiated. Status: Acute Additional A&P Information Hypokalemia, corrected Overall plan, is to try to transfer to long-term care for rehabilitation. Tracheostomy has been performed. Attestations Medical Necessity Statement*: Needs continued hospitalization secondary to severe COVID-19 pneumonia requiring mechanical ventilation. 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
--- NOTE | 2021-04-12 16:08 | XR_ITS ---
WS: [id number] Exam: XR chest 1V portable [id number] Date/Time of Exam: 04/12/2021 4:20 PM Reason For Exam: resp failure Comparison made with previous exam performed on the same day at 0627 hours. Extensive widespread pulmonary infiltrates throughout both lungs showing slightly more consolidation than noted previously. The lungs remain fully inflated. Tracheostomy tube remains in satisfactory pos ition. A left IJ central line is unchanged and in satisfactory position. An enteric tube is looped in the stomach. Additional monitoring leads superimpose the chest. XR/XR chest 1V portable [id number] IMPRESSION: 1. Extensive bilateral pulmonary infiltrates appearing slightly more consolidat ed than noted on the prior study earlier on the same day. 2. Tracheostomy tube, central line and enteric tube all remain in satisfactory position without change.
[2021-04-12] MEDS: fluconazole premix 400 MG/200 ML PIGGYBACK 200 MG IV (17:25)
--- NOTE | 2021-04-12 18:26 | PC.NURSE ---
Shift Note Frequent safety and comfort rounds continue. Orders and/or nursing care completed as indicated. Patient monitored for response to intervention and treatment(s). Education provided includes treatment plan and medication regimen, spoke with regarding trach and further plans. verbalizes understanding. Dr. Batista at bedside, says to leave OGT until absolutely necessary to replace d/t difficulty of placing NGT. Tube position verified per XR and air auscultation. VSS. Gtts infusing per orders, vent settings per RT. Will continue to monitor.
--- NOTE | 2021-04-12 19:04 | PM.PN ---
Subjective Subjective: Interval history: -Patient seen at bedside today morning -Clinically unchanged-still requiring 50% FiO2-trying to come off sedation and do awakening trial-opens eyes -DC Versed and taper down fentanyl -Labs and imaging reviewed Medications: Reviewed: Yes Vitals/I&O/Wt Last Vital Signs Temp 100.0 F H 04/12/21 16:00 Pulse 74 04/12/21 18:00 Resp 23 H 04/12/21 15:16 BP 96/66 04/12/21 18:00 Pulse Ox 94 04/12/21 18:00 04/12/21 04/12/21 04/12/21 06:59 14:59 22:59 Intake Total 195.244 / 1333.527 250.888 / 250.888 361.833 / 612.721 Output Total 475 / 900 450 / 450 Balance -279.756 / 433.527 250.888 / 250.888 -88.167 / 162.721 Weight last 48 hrs Weight 191 lb 8 oz Weight 188 lb Physical Exam Narrative: EXAM NARRATIVE: General: lying in bed, sedated and intubated. HEENT:NCAT, PERRLA, EOMI Neck: Supple; trach in place with no overt signs of bleeding Lungs: Bilateral diffuse coarse crackles Heart: s1/s2, RRR Abd: soft, NT, ND, BS + Normoactive Extremities: No edema PROJECT MANAGEMENT IT SPECIALIST: sedated and limited PROJECT MANAGEMENT IT SPECIALIST exam possible; opens eyes but does not follow commands SKIN: no rash LDA: # CVC: Left internal jugular vein 04/03/2021 # A line: Right radial arterial line 04/03/2021 #Tracheostomy-04/11/2021 Urinary Catheter Management^: Mullen: Cath Placed During This Visit: yes, but has since been removed by the nurse Reason for Continuing Indwelling Catheter: Accurate Measurement of Urinary Output in Critically Ill Patients Urinary Catheter Date of Insertion: 04/06/21 Urinary Catheter Time of Insertion: 11:09 Date Urinary Catheter Removed: 04/06/21 Time Urinary Catheter Discontinued: 11:07 Data : 04/12/21 05:41 04/12/21 05:41 Other Labs: Laboratory Results WBC 7.3 10^3/uL (4.0-10.0) 04/12/21 05:41 Corrected WBC Cancelled 03/27/21 15:45 RBC 3.15 10^6/uL (4.1-5.3) L 04/12/21 05:41 Hgb 10.7 g/dL (11.7-16.6) L 04/12/21 05:41 Hct 33.6 % (42.0-52.0) L 04/12/21 05:41 MCV 106.7 fl (80-94) H 04/12/21 05:41 MCH 34.0 pg (28.0-34.0) 04/12/21 05:41 MCHC 31.8 g/dL (30.0-36.0) 04/12/21 05:41 RDW 12.6 % (12.1-15.1) 04/12/21 05:41 Plt Count 233 10^3/cmm (130-400) 04/12/21 05:41 MPV 10.4 fL (7.4-10.4) 04/12/21 05:41 Gran % Cancelled 03/27/21 15:45 Neut % (Auto) 87.0 % 04/12/21 05:41 Lymph % (Auto) 5.5 % 04/12/21 05:41 Lipscomb % (Auto) 5.2 % 04/12/21 05:41 Eos % (Auto) 1.8 % 04/12/21 05:41 Baso % (Auto) 0.1 % 04/12/21 05:41 Neut # (Auto) 6.35 10^3/uL (1.8-7.7) 04/12/21 05:41 Lymph # (Auto) 0.4 10^3/uL (0.8-4.8) L 04/12/21 05:41 Lipscomb # (Auto) 0.4 10^3/uL (0.2-0.9) 04/12/21 05:41 Eos # (Auto) 0.1 10^3/uL (0.0-0.8) 04/12/21 05:41 Baso # (Auto) 0.0 10^3/uL (0.0-0.1) 04/12/21 05:41 Absolute Gran (auto) Cancelled 03/27/21 15:45 Nucleated RBC % (auto) 0 % 04/12/21 05:41 Nucleated RBCs # 0.0 /100WBC 04/12/21 05:41 ESR 57 mm/hr (0-10) H 04/03/21 04:45 D-Dimer 3.10 ug/mIFEU (0-0.59) H 04/05/21 03:57 Specimen Type Arterial 04/12/21 03:49 Sample Site Not Reportable 04/12/21 03:49 ABG pH 7.47 (7.35-7.45) H 04/12/21 03:49 ABG pCO2 36.7 mmHg (35-45) 04/12/21 03:49 ABG pO2 54.6 mmHg (80.0-100.0) L 04/12/21 03:49 ABG HCO3 26.8 mmol/L (22-26) H 04/12/21 03:49 ABG O2 Saturation 98.9 04/04/21 03:46 ABG Base Excess 3.1 mmol/L (-2.0-2.0) H 04/12/21 03:49 Hoang Test N/a 04/12/21 03:49 A-a O2 Gradient 43.2 mmHg (5-10) H 04/04/21 03:46 Hematocrit 37.2 % (42-52) L 04/12/21 03:49 Hgb O2 Saturation 97.8 % (95-100) 04/04/21 03:46 Carboxyhemoglobin 0.1 %THgb (0.4-20.1) L 04/04/21 03:46 Methemoglobin 1.1 % (0.4-1.5) 04/04/21 03:46 Total Hemoglobin 13.9 g/dL (14-18) L 04/04/21 03:46 Sodium 141.0 mmol/L (131-143) 04/04/21 03:46 Potassium 4.0 mmol/L (3.5-5.0) 04/04/21 03:46 Glucose 141.0 mg/dL (70-115) H 04/04/21 03:46 Ionized Calcium 1.2 mmol/L (1.1-1.4) 04/04/21 03:46 Respiration Rate 14.0 % 04/07/21 04:37 O2 Delivery Device Vent 04/12/21 03:49 O2 Liters/Min 15.0 % 04/02/21 21:49 Vent Mode Cmv 04/07/21 04:37 Mechanical Rate 14.0 04/07/21 04:37 FiO2 50.0 % 04/12/21 03:49 Tidal Volume 0.45 04/12/21 03:49 PEEP 10.0 cmH20 04/12/21 03:49 Specimen Drawn By Chandni 04/07/21 04:37 Road Engineer ID [email or web address] 04/12/21 03:49 Sodium 139 mmol/L (136-145) 04/12/21 05:41 Potassium 3.7 mmol/L (3.5-5.1) 04/12/21 05:41 Chloride 104 mmol/L (98-107) 04/12/21 05:41 Carbon Dioxide 26 mmol/L (22-29) 04/12/21 05:41 Anion Gap 12.7 (5-19) 04/12/21 05:41 BUN 20 mg/dL (8-23) 04/12/21 05:41 Creatinine 0.6 mg/dL (0.7-1.2) L 04/12/21 05:41 GFR Calculation 137.0 mL/min (90-130) H 04/12/21 05:41 Glucose 77 mg/dL (65-115) 04/12/21 05:41 Estimat Average Glucose 123 03/28/21 05:50 Hemoglobin A1c 5.9 % (4.0-6.0) 03/28/21 05:50 Calculated Osmolality 289 mOsm/kg (285-295) 04/12/21 05:41 Lactic Acid 1.8 mmol/L (0.5-2.2) 03/27/21 15:45 Calcium 8.4 mg/dL (8.5-10.5) L 04/12/21 05:41 Phosphorus 3.9 mg/dL (2.5-4.5) 03/28/21 05:50 Magnesium 2.4 mg/dL (1.7-2.3) H 04/06/21 03:00 Iron 32 ug/dL (59-158) L 03/27/21 19:06 TIBC 190 mcg/dl 03/27/21 19:06 % Saturation 16.8 % (20-50) L 03/27/21 19:06 Unsat Iron Binding 158 ug/dL (112-347) 03/27/21 19:06 Ferritin 2350 ng/mL (30-400) H 03/30/21 05:23 Total Bilirubin 1.5 mg/dL (0.15-1.2) H 04/11/21 04:00 AST 35 U/L (0-40) 04/11/21 04:00 ALT 29 U/L (0-41) 04/11/21 04:00 Alkaline Phosphatase 83 IU/L (40-130) 04/11/21 04:00 Creatine Kinase 100 U/L (39-308) 03/30/21 05:23 Troponin T Baseline 12 ng/L (0-15) 03/27/21 16:21 Troponin T 120 Minute 12.00 ng/L (0-15) 03/27/21 18:24 Delta Troponin T 0 ABS# (0-10) 03/27/21 18:24 C-Reactive Protein 91.9 mg/L (0.0-4.9) H 04/03/21 04:45 C-Reactive Protein Cancelled 04/03/21 04:45 NT-Pro-B Natriuret Pep 1027 pg/mL (0-125) H 04/03/21 04:45 NT-Pro-B Natriuret Pep Cancelled 04/03/21 04:45 Total Protein 6.4 g/dL (6.6-8.7) L 04/11/21 04:00 Albumin 2.3 g/dL (3.5-5.2) L 04/11/21 04:00 Globulin 4.1 g/dL (1.3-4.6) 04/11/21 04:00 Triglycerides 75 mg/dL (0-150) 03/28/21 05:50 Cholesterol 115 mg/dL (0-200) 03/28/21 05:50 LDL Cholesterol, Calc 67 mg/dL (50-129) 03/28/21 05:50 Total VLDL Cholesterol 15 mg/dL (0-30) 03/28/21 05:50 HDL Cholesterol 33 mg/dL (60-100) L 03/28/21 05:50 Cholesterol/HDL Ratio 3.48 mg/dL (1.0-5.00) 03/28/21 05:50 Vitamin B12 851 pg/mL (232-1245) 04/06/21 03:00 Folate 6.7 ng/mL (4.5-32.2) 04/06/21 03:00 Procalcitonin 0.10 ng/mL (0-0.5) 03/31/21 04:18 TSH 0.89 uIU/mL (0.27-4.20) 03/27/21 19:06 Urine Color Yellow (Yellow) 03/28/21 03:15 Urine Appearance Sl hazy (CLEAR) 03/28/21 03:15 Urine pH 5 (5-7) 03/28/21 03:15 Ur Specific [place] 1.020 (1.005-1.030) 03/28/21 03:15 Urine Protein 3+ (Negative) H 03/28/21 03:15 Urine Glucose (UA) Norm (Normal) 03/28/21 03:15 Urine Ketones Negative (Negative) 03/28/21 03:15 Urine Blood 3+ (Negative) H 03/28/21 03:15 Urine Nitrate Negative (Negative) 03/28/21 03:15 Urine Bilirubin Neg (Negative) 03/28/21 03:15 Urine Urobilinogen Norm mg/dL (Negative) 03/28/21 03:15 Ur Leukocyte Esterase Negative (Negative) 03/28/21 03:15 Urine RBC 0-4 /hpf (0-2) H 03/28/21 03:15 Urine WBC 0-4 /hpf (0-5) H 03/28/21 03:15 Ur Squamous Epith Cells 0-4 /hpf (0-5) H 03/28/21 03:15 Ur Renal Epithelial Cell 0 /hpf 03/28/21 03:15 Calcium Oxalate Crystal 0-4 /hpf H 03/28/21 03:15 Amorphous Sediment 3+ /hpf 03/28/21 03:15 Urine Bacteria Trace /hpf (NONE) 03/28/21 03:15 Coarse Granular Casts 0-4 /lpf H 03/28/21 03:15 Ur Random Sodium 14 mmol/L 03/28/21 03:15 Ur Random Potassium 62 mmol/L 03/28/21 03:15 Ur Random Chloride 12 mmol/L 03/28/21 03:15 Urine Creatinine 160 mg/dL (39-259) 03/28/21 03:15 Impressions Chest CTA 03/28/21 00:03 IMPRESSION: 1. No pulmonary embolism. 2. Hazy bilateral pulmonary opacities which are consistent with COVID-19. 3. Small hiatal hernia. Radiation Dose CTDIVOL = (mGy): DLP = 597.74 (mGy-cm) Head/Neck Ultrasound 04/03/21 17:42 IMPRESSION: Indeterminate left neck mass measuring nearly 3 cm in size. This does not appear to originate from the thyroid. Further evaluation with CT is recommended. Soft Tissue Neck X-Ray 04/03/21 17:42 IMPRESSION: Limited evaluation of left neck mass due to modality and overlying medical equipment. For further evaluation, would recommend CT of the neck. Neck CT 04/10/21 09:19 IMPRESSION: 1. No evidence of neck mass that would correspond to the previously described ultrasound findings. 2. Thyroid is normal in appearance. 3. A few prominent mediastinal lymph nodes at the thoracic inlet likely reactive. 4. Hazy ground glass infiltrates in the lung apices compatible with COVID 19 Pneumonia. 5. Endotracheal tube with tip above the can. Partially visualized enteric tube. 6. Left IJ catheter extends into the innominate and SVC off the [id number]. Chest X-Ray 04/12/21 16:08 IMPRESSION: 1. Extensive bilateral pulmonary infiltrates appearing slightly more consolidated than noted on the prior study earlier on the same day. 2. Tracheostomy tube, central line and enteric tube all remain in satisfactory position without change. Micro: Microbiology 04/09/21 13:40 Gram Stain - Final Sputum - Endotracheal Tube Aspirate Sputum Culture - Preliminary Yeast species 04/06/21 14:10 Blood Culture - Final Blood NO GROWTH AFTER 5 DAYS 04/06/21 14:05 Blood Culture - Final Blood NO GROWTH AFTER 5 DAYS A&P Assessment and plan (1) Acute hypoxemic respiratory failure due to severe acute respiratory syndrome coronavirus 2 (SARS-CoV-2) disease: Status: Acute (2) Acute kidney injury: Status: Acute (3) Hyponatremia: Status: Acute (4) COVID-19: Status: Acute (5) Ischemic cardiomyopathy: Status: Acute (6) Benign essential HTN: Status: Acute (7) Counseling regarding advanced directives and goals of care: Status: Acute #Acute hypoxic respiratory failure secondary to ARDS due to COVID-19 pneumonia #Concern for alcohol withdrawal -as patient takes alcohol every night -Symptoms started 03/20/2021; Test + 03/26/2021, CT 03/28/2020 were negative for pulmonary embolism -Intubated 04/02/2021 -s/p tracheostomy 04/11/2021 -Completed 3 proning sessions -Currently on CMV-450/10/50 % and ABG 7.4 //26 -Chest x-ray : Extensive bilateral pulmonary infiltrates appearing slightly more consolidated than noted on the prior study earlier on the same day -Off paralytic and Versed, tapering of fentanyl, propofol and if needed start on Precedex, Ativan as needed for withdrawal given his history of alcohol; -earlier received 1 dose of phenobarbital 130 MCG for alcohol withdrawal -Seroquel 25 mg at bedtime -DuoNeb every 4 scheduled, Pulmicort 0.5 twice daily scheduled -S/p dexamethasone 6 mg daily & Completed remdesivir 5-day course and extended 5 more days -Completed adequate Rocephin and azithromycin for empiric coverage -So far bacterial antigens, MRSA in nares, Legionella urine antigen, sputum culture, blood cultures, TTE negative -CRP 91 -Currently on Lovenox for DVT prophylaxis - fever spikes-on 04/06/2021-cultures 04/06/2021-negative so far; 04/09/2021 sputum cultures-grew yeast-started on fluconazole #Ischemic cardiomyopathy - 12/22/2020 stress test-large area of old myocardial infarction vs scarring -12/22/2020 echo-normal LV cavity size with EF estimated 45% -Aspirin 81/Imdur 30/metoprolol 50/atorvastatin 20 -Keep net negative to even -Lasix as needed # Hypokalemia-resolved -Supplemented-monitor #Deranged LFTs likely secondary to COVID-19 pneumonia-normalized -Monitor LFTs #Neck swelling -Soft tissue neck x-ray: limited evaluation of left neck mass due to modality and overlying medical equipment -:Neck ultrasound: solid-appearing left neck mass measuring 2.9 x 2.7 cm of unclear origin,does not appear to originate from the thyroid. -CT neck: no evidence of neck mass that would correspond to the previously described ultrasound findings #Initial 2 days there was difficulty passing NG tube, later successfully inserted and advanced. -Currently patient has OG tube; patient has difficulty passing NG tube multiple times previously-we will leave OG tube for now -More than likely patient will get PEG tube -Continue tube feeding #Glucose well controlled #GI prophylaxis famotidine #DVT prophylaxis-Lovenox 40 #Full code #Family updated #Prognosis guarded 04/10/2021: Discussed with about patient's medical condition. Currently is requiring 50% FiO2 on ventilator and has very slow recovery to adequate mentation. We will continue to do awakening trial and if he continues to require 50-60% FiO2 on ventilator-we will plan to do tracheostomy and send patient to long-term acute care facility. Patient verbalized understanding and agreed with the plan. Recommendations conveyed to hospitalist, RN, RT taking care of the patient Attestations Medical Necessity Statement*: Acute hypoxic respiratory failure secondary to ARDS due to COVID-19 pneumonia-intubated and mechanically ventilated and currently being proned still requiring high FiO2 Time Spent in Patient Care: Greater than 35 minutes (>than 50% of time spent in counselling and/or direct pt care on unit). Critical Care Time: The high probability of a clinically significant, sudden or life threatening deterioration of the patient's [pulmonary, neurological] system(s) required my full and direct attention, intervention and personal management. The critical care time is as shown. This time is in addition to time spent performing any reported procedures but includes the following: [x] Data and vital sign review and interpretation [x] Patient assessment, examination and intervention [x] Documentation [x] Medication orders and management Critical Care Time (min): 45 Coding Level of Care Code Acute Efficiency Engineer for [facility] Fwd Diagnoses Acute hypoxemic respiratory failure due to severe acute respiratory syndrome coronavirus 2 (SARS-CoV-2) disease U07.1; J96.01 Acute kidney injury N17.9 Hyponatremia E87.1 COVID-19 U07.1 Ischemic cardiomyopathy I25.5 Benign essential HTN I10 Counseling regarding advanced directives and goals of care Z71.89
[2021-04-12] MEDS: quetiapine 25 mg Tablet PO (20:30)
[2021-04-12] MEDS: propofol 1,000 MG/100 ML INJ 8.59 MG IV (20:30)
[2021-04-12] MEDS: benzonatate 100 mg Capsule PO (20:30)
[2021-04-12 21:07] LABS: Glucose Point of Care 137 mg/dL (70-110)
[2021-04-13] VITALS (62 sets, daily range): BP systolic 96–160; BP diastolic 63–100; PULSE 70–118; RESP 15–31; TEMP 37.3–38.1; O2SAT 92–97
[2021-04-13] MEDS: propofol 1,000 MG/100 ML INJ 8.59 MG IV (01:09)
[2021-04-13] MEDS: ipratropium-albuterol 3 mL Neb INHALATION ×6 (03:32→23:37)
[2021-04-13] MEDS: dexmedetomidine 400 MCG in sodium chloride 0.9% (100 ml) 100 ML IV ×2 (04:26→10:42)
[2021-04-13 04:29] LABS: ABG PCO2 33.6 mmHg (35-45); ABG PH Result 7.47 (7.35-7.45); Arterial Blood Gas Hematocrit 30.9 % (42-52); Blood Gas Operator Identificat JB; Blood Gas Sample Type Arterial; Blood Gas Tidal Volume 0.45; HCO3 ABG 24.4 mmol/L (22-26); Oxygen Device VENT; PO2 ABG 64.1 mmHg (80.0-100.0)
[2021-04-13 04:42] LABS: Basophils % 0.2 %; Eosinophils # 0.2 10^3/uL (0.0-0.8); Eosinophils % 1.8 %; Hematocrit 33.3 % (42.0-52.0); Hemoglobin 10.9 g/dL (11.7-16.6); Lymphocytes # 0.5 10^3/uL (0.8-4.8); Lymphocytes % 5.8 %; Mean Corpuscular HGB Conc 32.7 g/dL (30.0-36.0); Mean Corpuscular Volume 103.7 fl (80-94); Mean Platelet Volume 10.5 fL (7.4-10.4); Monocytes # 0.5 10^3/uL (0.2-0.9); Monocytes % 5.4 %; Neutrophils # 7.31 10^3/uL (1.8-7.7); Neutrophils % 86.4 %; Nucleated Red Blood Cells % 0 %; Platelet Count 208 10^3/cmm (130-400); Red Blood Count 3.21 10^6/uL (4.1-5.3); Red Cell Distribution Width 12.5 % (12.1-15.1); White Blood Count 8.5 10^3/uL (4.0-10.0)
[2021-04-13 05:10] LABS: Chloride 104 mmol/L (98-107); Potassium 3.9 mmol/L (3.5-5.1); Sodium 139 mmol/L (136-145)
[2021-04-13] MEDS: famotidine 20 mg/2 mL INJ IVP ×2 (05:58→16:59)
[2021-04-13 06:18] LABS: Alanine Aminotransferase 54 U/L (0-41); Albumin Level 2.1 g/dL (3.5-5.2); Alkaline Phosphatase 97 IU/L (40-130); Anion Gap 14.8 (5-19); Aspartate Amino Transferase 81 U/L (0-40); Blood Urea Nitrogen 22 mg/dL (8-23); Calcium 8.4 mg/dL (8.5-10.5); Carbon Dioxide 23 mmol/L (22-29); Globulin 4.4 g/dL (1.3-4.6); Glomerular Filtration Rate 114.6 mL/min (90-130); Glucose 84 mg/dL (65-115); Osmolality Calculated 291 mOsm/kg (285-295); Total Bilirubin 2.6 mg/dL (0.15-1.2); Total Protein 6.5 g/dL (6.6-8.7)
[2021-04-13] MEDS: folic acid 1 mg Tablet PO (08:01)
[2021-04-13] MEDS: isosorbide mononitrate ER 30 mg Tablet PO (08:01)
[2021-04-13] MEDS: metoprolol succinate ER (24 HR) 50 mg Tablet PO (08:01)
[2021-04-13] MEDS: guaiFENesin 600 mg Tablet 1200 MG PO ×2 (08:01→16:59)
[2021-04-13] MEDS: multivitamin therapeutic Tablet 1 TAB PO (08:01)
[2021-04-13] MEDS: ferrous gluconate 324 mg Tablet PO ×2 (08:01→16:59)
[2021-04-13] MEDS: aspirin 81 mg EC Tablet PO (08:01)
[2021-04-13] MEDS: thiamine 100 mg Tablet PO (08:01)
[2021-04-13] MEDS: budesonide 0.5 mg/2 mL Neb INHALATION ×2 (09:41→20:24)
--- NOTE | 2021-04-13 10:47 | P.CONIM_ITS ---
Providers/Reason For Consult Consulting Physician/Specialty*: General Surgery Bill Cuevas MD Reason for Consult*: Requesting PEG tube placement for nutrition/medication administration. Attending Physician: Jon Alberto MD Primary Care Provider: Taina Zarate DO History of Present Illness History of Present Illness Christopher Reinoso is a 60 year old male admitted with an active Covid infection. He underwent a tracheostomy several days ago. He has been slow to improve and r emains on mechanical ventilation. He has had an orogastric tube in place for nutrition and medication administration, as multiple attempts at trying to pass a nasogastric tube were unsuccessful. Dr. Alberto has asked if I would consider trying to put a PEG tube in place, as a prolonged recovery is expected. Review of Systems General: Reports: ROS unobtainable due to endotracheal tube and ROS unobtainable due to medical condition Meds/Allergies Home Medications and Allergies Home Medications Medication Instructions Recorded Confirmed Last Taken Type atorvastatin 20 mg tablet 20 mg PO DAILY 10/30/20 03/27/21 12/21/20 History metoprolol succinate 50 mg 50 mg PO DAILY 10/30/20 03/27/21 12/21/20 History tablet,extended release 24 hr nitroglycerin 0.4 mg sublingual 0.4 mg SUBLINGUAL Q5M PRN 10/30/20 03/27/21 12/21/20 History tablet isosorbide mononitrate 30 mg 30 mg PO DAILY 30 Days #30 tab 12/28/20 03/27/21 Unknown Rx tablet,extended release 24 hr lisinopril 40 mg tablet 40 mg PO DAILY #30 tab 02/12/21 03/27/21 Unknown Rx aspirin [Aspir-81] 81 mg PO DAILY 03/27/21 03/27/21 Unknown History Allergies Allergy/AdvReac Type Severity Reaction Status Date / Time No Known Allergies Allergy Verified 03/26/21 10:34 Current Medications Current Medications Generic Name Dose Route Start Last Admin Trade Name Freq PRN Reason Stop Dose Admin Acetaminophen 650 mg 03/28/21 00:07 04/09/21 03:15 Acetaminophen 325 Mg Tablet PO 650 mg Q6H PRN Administration Mild/Mod Pain Or Temp >/= 101 Albuterol/Ipratropium 3 ml 04/01/21 12:00 04/13/21 09:41 Ipratropium-Albuterol 3 Ml Neb INHALATION 3 ml Q4H.RESPIRATORY STANLEY Administration Aspirin 81 mg 03/28/21 09:00 04/13/21 08:01 Aspirin 81 Mg Ec Tablet PO 81 mg DAILY STANLEY Administration Benzonatate 100 mg 03/27/21 21:00 04/13/21 08:01 Benzonatate 100 Mg Capsule PO Not Given TID STANLEY Budesonide 0.5 mg 04/01/21 20:00 04/13/21 09:41 Budesonide 0.5 Mg/2 Ml Neb INHALATION 0.5 mg BID.RESPIRATORY STANLEY Administration Enoxaparin Sodium 40 mg 04/04/21 10:00 04/12/21 09:38 Enoxaparin 40 Mg/0.4 Ml Syringe SUBCUT 40 mg Q24H STANLEY Administration Famotidine 20 mg 03/27/21 18:48 04/13/21 05:58 Famotidine 20 Mg/2 Ml Inj IVP 20 mg Q12H STANLEY Administration Ferrous Gluconate 324 mg 03/28/21 08:00 04/13/21 08:01 Ferrous Gluconate 324 Mg Tablet PO 324 mg BIDWM STANLEY Administration Folic Acid 1 mg 04/03/21 09:00 04/13/21 08:01 Folic Acid 1 Mg Tablet PO 1 mg DAILY STANLEY Administration Guaifenesin 1,200 mg 04/02/21 11:45 04/13/21 08:01 Guaifenesin 600 Mg Tablet PO 1,200 mg BID STANLEY Administration Propofol 1,000 mg in 100 mls @ 0 mls/hr 04/02/21 22:45 04/13/21 10:42 Diprivan IV 20 mcg/kg/min .Q0M STANLEY 11.45 mls/hr Titration Protocol Per Protocol Norepinephrine Bitartrate 4 mg 254 mls @ 0 mls/hr 04/02/21 22:45 04/12/21 03:21 / Dextrose IV Infused .Q0M PRN Titration MAP <65 Protocol Per Protocol Sodium Chloride 500 mls @ 3 mls/hr 04/03/21 12:30 04/12/21 12:37 Sodium Chloride 0.9% XX Not Given .Q24H STANLEY Fentanyl 1,000 mcg/ Sodium 100 mls @ 0 mls/hr 04/03/21 12:45 04/13/21 04:26 Chloride IV 25 mcg/hr .Q0M STANLEY 2.5 mls/hr Titration Protocol Per Protocol Dexmedetomidine HCl 400 mcg/ 104 mls @ 0 mls/hr 04/07/21 16:30 04/13/21 10:42 Sodium Chloride IV 0.03 mcg/kg/hr .Q0M STANLEY 0.64 mls/hr Administration Protocol Per Protocol Midazolam HCl 100 mg/ Sodium 100 mls @ 0 mls/hr 04/08/21 04:15 04/10/21 19:06 Chloride IV Infused .Q0M STANLEY Titration Protocol Per Protocol Fluconazole 400 mg in 200 mls @ 200 mls/hr 04/12/21 17:00 04/12/21 18:31 Diflucan Premix IV Infused Q24H STANLEY Infusion Isosorbide Mononitrate 30 mg 03/28/21 09:00 04/13/21 08:01 Isosorbide Mononitrate Er 30 Mg Tablet PO 30 mg DAILY STANLEY Administration Lorazepam 2 mg 04/10/21 09:22 04/10/21 14:05 Lorazepam 2 Mg/Ml Inj 1 Ml IVP 2 mg Q4H PRN Administration ANXIETY Metoprolol Succinate 50 mg 03/28/21 09:00 04/13/21 08:01 Metoprolol Succinate Er (24 Hr) 50 Mg Tablet PO 50 mg DAILY STANLEY Administration Multivitamins Therapeutic 1 tab 04/02/21 12:00 04/13/21 08:01 Multivitamin Therapeutic Tablet PO 1 tab DAILY STANLEY Administration Quetiapine Fumarate 25 mg 04/09/21 21:00 04/12/21 20:30 Quetiapine 25 Mg Tablet PO 25 mg BEDTIME STANLEY Administration Thiamine Mononitrate 100 mg 04/02/21 11:30 04/13/21 08:01 Thiamine 100 Mg Tablet PO 100 mg DAILY STANLEY Administration PFSH Acute PFSH: Medical History Atherosclerosis of [place] coronary artery of [place] heart with stable angina pectoris BPH (benign prostatic hyperplasia) Dyslipidemia (high LDL; low HDL) Essential hypertension History of hypertension Hx of chest pain Surgical History History of PTCA Family History Brother CAD (coronary artery disease) Lung disease Father CAD (coronary artery disease) Cancer Mother Diabetes Lung disease Denies family history of Clotting disorder Dementia Chronic kidney disease (CKD) Suicide Anesthesia complication Bleeding disorder Stroke Social History Smoking and tobacco status: former smoker Alcohol intake: current Alcohol intake frequency: 3 or more drinks per day Alcohol type: beer Housing: House Vitals/I&O/Wt Last Vital Signs Temp 100.3 F H 04/13/21 08:00 Pulse 86 04/13/21 09:30 Resp 24 H 04/13/21 05:47 BP 96/63 04/13/21 09:30 Pulse Ox 92 04/13/21 09:30 04/12/21 04/13/21 04/13/21 22:59 06:59 14:59 Intake Total 528.999 / 957.674 177.787 / 957.674 39.919 / 39.919 Output Total 450 / 950 500 / 950 Balance 78.999 / 7.674 -322.213 / 7.674 39.919 / 39.919 Weight last 48 hrs Weight 190 lb Weight 191 lb 8 oz Physical Exam Narrative: EXAM NARRATIVE: The patient was encountered in his ICU room. He is somewhat sedated, on mechanical ventilation via his tracheostomy, and has an o rogastric tube in place. The pupils seem equal. The lungs reveal significant rhonchi bilaterally. His heart sounds are difficult to hear, but his rhythm seems regular although he is mildly tachycardic by the monitor. The abdomen is soft. There are no obviously visible scars on the upper abdomen. The extremities reveal no significant edema. Urinary Catheter Management^: Mullen: Cath Placed During This Visit: yes, but has since been removed by the nurse Reason for Continuing Indwelling Catheter: Accurate Measurement of Urinary Output in Critically Ill Patients Urinary Catheter Date of Insertion: 04/06/21 Urinary Catheter Time of Insertion: 11:09 Date Urinary Catheter Removed: 04/06/21 Time Urinary Catheter Discontinued: 11:07 Data Micro: Micro: Microbiology 04/09/21 13:40 Gram Stain - Final Sputum - Endotrac heal Tube Aspirate Sputum Culture - P reliminary Yeast species A&P Assessment and plan (1) Acute hypoxemic respiratory failure due to severe acute respiratory syndrome coronavirus 2 (SARS-CoV-2) disease: Attempted placement of a PEG tube seems reasonable given the patient's overall medical condition and what appears to be a likely extended recovery. In reviewing the patient's CAT scan of the chest from this admission, however, it appears that he has a hiatal hernia; perhaps more significantly his colon rides very high in the abdomen and his stomach is all posterior to this. This may make for a very difficult endoscopic gastrostomy placement. I am still willing to at least look in his stomach and if we can insufflate the stomach and somehow get the colon to get pushed down inferiorly, and endoscopic tube placement may still be possible. The procedure has been discussed with the patient's by phone and she is familiar with PEG tubes. She is agreeable to us proceeding with an attempt at PEG tube placement. The patient's Lovenox has been on hold. We will attempt endoscopy later this morning. Status: Acute Consult Attestations Medical Necessity Statement: See admitting service's notation. Coding Level of Care Code Acute Tool Crib Clerk for [facility] Diagnoses Acute hypoxemic respiratory failure due to severe acute respiratory syndrome coronavirus 2 (SARS-CoV-2) disease U07.1; J96.01
[2021-04-13] MEDS: rocuronium 10 mg/mL INJ 5mL 50 MG (12:16)
--- NOTE | 2021-04-13 13:05 | PC.NUTR ---
Tube feeding follow up: Continues to receive little to no nutrition, total of 455 kcal from 04/10-04/12, or an average of 152 kcal per day, with 0 kcal/day X 7 days prior. Propofol at current rate providing 756 kcal/day. Continue to recommend checking triglycerides. PEG placement pending per chart. If feeding resumed via PEG, would recommend continuous or intermittent feeds initially (not bolus) due to extended time period of minimal nutritional provision. Suggest transition to bolus gradually as tolerated. Goal of 1680 ml Jevity 1.2 total feeding volume per day, or 70 ml/hr if continuous, to provide 2016 kcal, 92 g protein. Flushes per MD discretion. May need to hold at 50 ml/hr initially (1200 ml total volume) until propofol decreased. RD available for further recommendations as needed. See full assessment for further details.
--- NOTE | 2021-04-13 14:41 | PM.PN ---
Subjective Subjective: Interval history: Christopher is sedated on the ventilator. I briefly talked with his this morning regarding PEG tube placement. Medications: Reviewed: Yes Vitals/I&O/Wt Last Vital Signs Temp 100.4 F H 04/13/21 11:00 Pulse 98 04/13/21 14:00 Resp 19 H 04/13/21 12:00 BP 119/70 04/13/21 14:00 Pulse Ox 94 04/13/21 12:00 04/12/21 04/13/21 04/13/21 22:59 06:59 14:59 Intake Total 528.999 / 779.887 177.787 / 957.674 345.802 / 345.802 Output Total 450 / 450 500 / 950 Balance 78.999 / 329.887 -322.213 / 7.674 345.802 / 345.802 Weight last 48 hrs Weight 86.183 kg Weight 86.863 kg Physical Exam Narrative: EXAM NARRATIVE: General exam no distress Neck is supple no lymphadenopathy or thyromegaly. Tracheostomy noted Cardiovascular regular rate and rhythm without murmur Lungs coarse breath sounds bilaterally Abdomen is soft, positive bowel sounds Extremities no cyanosis clubbing or edema Urinary Catheter Management^: Mullen: Cath Placed During This Visit: yes, but has since been removed by the nurse Reason for Continuing Indwelling Catheter: Accurate Measurement of Urinary Output in Critically Ill Patients Urinary Catheter Date of Insertion: 04/06/21 Urinary Catheter Time of Insertion: 11:09 Date Urinary Catheter Removed: 04/06/21 Time Urinary Catheter Discontinued: 11:07 Data : 04/13/21 04:00 04/13/21 04:00 Micro: Microbiology 04/09/21 13:40 Gram Stain - Final Sputum - Endotracheal Tube Aspirate Sputum Culture - Final Yeast species A&P Assessment and plan (1) Hypoxemia: Hypoxic respite failure with ARDS secondary to severe COVID-19. Appreciate pulmonary critical care consultation. He has completed his course of remdesivir, and dexamethasone Azithromycin, ceftriaxone discontinued. He has completed an adequate course. Temperature of 100.4 noted. Last culture now growing some yeast. Fluconazole had previously been initiated. Check urine culture, blood culture Continue to wean FiO2 as tolerated Tracheostomy performed late April 11 Needs PEG tube. Discussed nutrition with nursing Sanjay increasing tube feeds as well as free water Status: Acute (2) COVID-19: Severe COVID-19 with ARDS. As above. Status: Acute (3) Ischemic cardiomyopathy: No symptoms currently Status: Acute (4) Acute kidney injury: Resolved. Status: Acute (5) Hyponatremia: Resolved. Status: Acute (6) Atherosclerosis of coronary artery of [place] heart without angina pectoris: Continue cardiac medications. Status: Acute Qualifiers: Coronary Disease-Associated Artery/Lesion type: unspecified vessel or lesion type Qualified Code(s): I25.10 - Atherosclerotic heart disease of [place] coronary artery without angina pectoris (7) Dyslipidemia: Status: Acute (8) Benign essential HTN: Status: Acute (9) Neck mass: Indeterminate left neck mass measuring nearly 3 cm in size, does not appear to originate from the thyroid. CT scan performed today demonstrates no mass Status: Acute (10) Fever: Currently resolved. Monitor for any recurrence. Temperature spike noted today. Recent sputum culture from April 09 growing yeast. Fluconazole initiated previously. Sputum culture, blood culture, urine culture obtained. Hold on reintroducing antibiotics at this time. Status: Acute Additional A&P Information Hypokalemia, corrected Overall plan, is to try to transfer to long-term care for rehabilitation. Tracheostomy has been performed. Planning on PEG tube. Attestations Medical Necessity Statement*: Needs continued hospitalization secondary to severe COVID-19 pneumonia requiring mechanical ventilation. Critical Care Time: The high probability of a clinically significant, sudden or life threatening deterioration of the patient's [pulmonary, infectious disease] system(s) required my full and direct attention, intervention and personal management. The critical care time is as shown. 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
[2021-04-13 15:24] LABS: Glucose Point of Care 163 mg/dL (70-110)
[2021-04-13] MEDS: fluconazole premix 400 MG/200 ML PIGGYBACK 200 MG IV (16:45)
[2021-04-13] MEDS: acetaminophen 325 mg Tablet 650 MG PO (16:59)
[2021-04-13] MEDS: cefepime 2,000 MG in sodium chloride 0.9% (plus) 50 ML 100 MG IV (17:00)
[2021-04-13] MEDS: vancomycin 1,500 MG/300 ML PIGGYBACK 200 MG IV (18:08)
--- NOTE | 2021-04-13 18:25 | PC.NURSE ---
Shift Note Frequent safety and comfort rounds continue. Orders and/or nursing care completed as indicated. Patient monitored for response to intervention and treatment(s). Education provided includes peg placement, medication adjustments and treatment plan. verbalizes understanding. PT able to shake head yes and no at times to answer simple questions. HAs been febrile most of the day, tylenol effective, new abts started. Propofol off, fentanyl and precedex infusing. VSS. Will continue to monitor.
[2021-04-13] MEDS: quetiapine 25 mg Tablet PO (20:11)
--- NOTE | 2021-04-13 21:21 | PM.PN ---
Subjective Subjective: Interval history: -Patient seen at bedside today -Scheduled to have his PEG tube today -Otherwise still requiring 50% FiO2 -Pending approval for LTAC placement -Labs and imaging reviewed Medications: Reviewed: Yes Vitals/I&O/Wt Last Vital Signs Temp 99.1 F 04/13/21 19:30 Pulse 78 04/13/21 20:33 Resp 23 H 04/13/21 20:28 BP 121/79 04/13/21 20:00 Pulse Ox 96 04/13/21 20:28 04/13/21 04/13/21 04/13/21 06:59 14:59 22:59 Intake Total 177.787 / 957.674 345.802 / 345.802 695.098 / 1040.900 Output Total 500 / 950 425 / 425 Balance -322.213 / 7.674 345.802 / 345.802 270.098 / 615.900 Weight last 48 hrs Weight 190 lb Weight 191 lb 8 oz Physical Exam Narrative: EXAM NARRATIVE: EXAM NARRATIVE: General: lying in bed, sedated and intubated. 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 exam possible; opens eyes but does not follow commands SKIN: no rash LDA: # CVC: Left internal jugular vein 04/03/2021 # A line: Right radial arterial line 04/03/2021 #Tracheostomy-04/11/2021 Urinary Catheter Management^: Mullen: Cath Placed During This Visit: yes, but has since been removed by the nurse Reason for Continuing Indwelling Catheter: Accurate Measurement of Urinary Output in Critically Ill Patients Urinary Catheter Date of Insertion: 04/06/21 Urinary Catheter Time of Insertion: 11:09 Date Urinary Catheter Removed: 04/06/21 Time Urinary Catheter Discontinued: 11:07 Data : 04/13/21 04:00 04/14/21 03:33 Other Labs: Laboratory Results WBC 8.5 10^3/uL (4.0-10.0) 04/13/21 04:00 Corrected WBC Cancelled 03/27/21 15:45 RBC 3.21 10^6/uL (4.1-5.3) L 04/13/21 04:00 Hgb 10.9 g/dL (11.7-16.6) L 04/13/21 04:00 Hct 33.3 % (42.0-52.0) L 04/13/21 04:00 MCV 103.7 fl (80-94) H 04/13/21 04:00 MCH 34.0 pg (28.0-34.0) 04/13/21 04:00 MCHC 32.7 g/dL (30.0-36.0) 04/13/21 04:00 RDW 12.5 % (12.1-15.1) 04/13/21 04:00 Plt Count 208 10^3/cmm (130-400) 04/13/21 04:00 MPV 10.5 fL (7.4-10.4) H 04/13/21 04:00 Gran % Cancelled 03/27/21 15:45 Neut % (Auto) 86.4 % 04/13/21 04:00 Lymph % (Auto) 5.8 % 04/13/21 04:00 [place] % (Auto) 5.4 % 04/13/21 04:00 Eos % (Auto) 1.8 % 04/13/21 04:00 Baso % (Auto) 0.2 % 04/13/21 04:00 Neut # (Auto) 7.31 10^3/uL (1.8-7.7) 04/13/21 04:00 Lymph # (Auto) 0.5 10^3/uL (0.8-4.8) L 04/13/21 04:00 [place] # (Auto) 0.5 10^3/uL (0.2-0.9) 04/13/21 04:00 Eos # (Auto) 0.2 10^3/uL (0.0-0.8) 04/13/21 04:00 Baso # (Auto) 0.0 10^3/uL (0.0-0.1) 04/13/21 04:00 Absolute Gran (auto) Cancelled 03/27/21 15:45 Nucleated RBC % (auto) 0 % 04/13/21 04:00 Nucleated RBCs # 0.0 /100WBC 04/13/21 04:00 ESR 57 mm/hr (0-10) H 04/03/21 04:45 D-Dimer 3.10 ug/mIFEU (0-0.59) H 04/05/21 03:57 Specimen Type Arterial 04/13/21 04:15 Sample Site Not Reportable 04/12/21 03:49 ABG pH 7.47 (7.35-7.45) H 04/13/21 04:15 ABG pCO2 33.6 mmHg (35-45) L 04/13/21 04:15 ABG pO2 64.1 mmHg (80.0-100.0) L 04/13/21 04:15 ABG HCO3 24.4 mmol/L (22-26) 04/13/21 04:15 ABG O2 Saturation 98.9 04/04/21 03:46 ABG Base Excess 1.0 mmol/L (-2.0-2.0) 04/13/21 04:15 Hoang Test N/a 04/13/21 04:15 A-a O2 Gradient 43.2 mmHg (5-10) H 04/04/21 03:46 Hematocrit 30.9 % (42-52) L 04/13/21 04:15 Hgb O2 Saturation 97.8 % (95-100) 04/04/21 03:46 Carboxyhemoglobin 0.1 %THgb (0.4-20.1) L 04/04/21 03:46 Methemoglobin 1.1 % (0.4-1.5) 04/04/21 03:46 Total Hemoglobin 13.9 g/dL (14-18) L 04/04/21 03:46 Sodium 141.0 mmol/L (131-143) 04/04/21 03:46 Potassium 4.0 mmol/L (3.5-5.0) 04/04/21 03:46 Glucose 141.0 mg/dL (70-115) H 04/04/21 03:46 Ionized Calcium 1.2 mmol/L (1.1-1.4) 04/04/21 03:46 Respiration Rate 14.0 % 04/07/21 04:37 O2 Delivery Device Vent 04/13/21 04:15 O2 Liters/Min 15.0 % 04/02/21 21:49 Vent Mode Cmv 04/07/21 04:37 Mechanical Rate 14.0 08/21/21 04:37 FiO2 50.0 % 04/13/21 04:15 Tidal Volume 0.45 04/13/21 04:15 PEEP 10.0 cmH20 04/13/21 04:15 Specimen Drawn By Chandni 04/07/21 04:[address] Reporter ID Hilton 04/13/21 04:15 Sodium 139 mmol/L (136-145) 04/13/21 04:00 Potassium 3.9 mmol/L (3.5-5.1) 04/13/21 04:00 Chloride 104 mmol/L (98-107) 04/13/21 04:00 Carbon Dioxide 23 mmol/L (22-29) 04/13/21 04:00 Anion Gap 14.8 (5-19) 04/13/21 04:00 BUN 22 mg/dL (8-23) 04/13/21 04:00 Creatinine 0.7 mg/dL (0.7-1.2) 04/13/21 04:00 GFR Calculation 114.6 mL/min (90-130) 04/13/21 04:00 Glucose 84 mg/dL (65-115) 04/13/21 04:00 POC Glucose 163 mg/dL (70-110) H 04/13/21 15:19 Estimat Average Glucose 123 03/28/21 05:50 Hemoglobin A1c 5.9 % (4.0-6.0) 03/28/21 05:50 Calculated Osmolality 291 mOsm/kg (285-295) 04/13/21 04:00 Lactic Acid 1.8 mmol/L (0.5-2.2) 03/27/21 15:45 Calcium 8.4 mg/dL (8.5-10.5) L 04/13/21 04:00 Phosphorus 3.9 mg/dL (2.5-4.5) 03/28/21 05:50 Magnesium 2.4 mg/dL (1.7-2.3) H 04/06/21 03:00 Iron 32 ug/dL (59-158) L 03/27/21 19:06 TIBC 190 mcg/dl 03/27/21 19:06 % Saturation 16.8 % (20-50) L 03/27/21 19:06 Unsat Iron Binding 158 ug/dL (112-347) 03/27/21 19:06 Ferritin 2350 ng/mL (30-400) H 03/30/21 05:23 Total Bilirubin 2.6 mg/dL (0.15-1.2) H 04/13/21 04:00 AST 81 U/L (0-40) H 04/13/21 04:00 ALT 54 U/L (0-41) H 04/13/21 04:00 Alkaline Phosphatase 97 IU/L (40-130) 04/13/21 04:00 Creatine Kinase 100 U/L (39-308) 03/30/21 05:23 Troponin T Baseline 12 ng/L (0-15) 03/27/21 16:21 Troponin T 120 Minute 12.00 ng/L (0-15) 03/27/21 18:24 Delta Troponin T 0 ABS# (0-10) 03/27/21 18:24 C-Reactive Protein 91.9 mg/L (0.0-4.9) H 04/03/21 04:45 C-Reactive Protein Cancelled 04/03/21 04:45 NT-Pro-B Natriuret Pep 1027 pg/mL (0-125) H 04/03/21 04:45 NT-Pro-B Natriuret Pep Cancelled 04/03/21 04:45 Total Protein 6.5 g/dL (6.6-8.7) L 04/13/21 04:00 Albumin 2.1 g/dL (3.5-5.2) L 04/13/21 04:00 Globulin 4.4 g/dL (1.3-4.6) 04/13/21 04:00 Triglycerides 75 mg/dL (0-150) 03/28/21 05:50 Cholesterol 115 mg/dL (0-200) 03/28/21 05:50 LDL Cholesterol, Calc 67 mg/dL (50-129) 03/28/21 05:50 Total VLDL Cholesterol 15 mg/dL (0-30) 03/28/21 05:50 HDL Cholesterol 33 mg/dL (60-100) L 03/28/21 05:50 Cholesterol/HDL Ratio 3.48 mg/dL (1.0-5.00) 03/28/21 05:50 Vitamin B12 851 pg/mL (232-1245) 04/06/21 03:00 Folate 6.7 ng/mL (4.5-32.2) 04/06/21 03:00 Procalcitonin 0.10 ng/mL (0-0.5) 03/31/21 04:18 TSH 0.89 uIU/mL (0.27-4.20) 03/27/21 19:06 Urine Color Yellow (Yellow) 03/28/21 03:15 Urine Appearance Sl hazy (CLEAR) 03/28/21 03:15 Urine pH 5 (5-7) 03/28/21 03:15 Ur Specific [place] 1.020 (1.005-1.030) 03/28/21 03:15 Urine Protein 3+ (Negative) H 03/28/21 03:15 Urine Glucose (UA) Norm (Normal) 03/28/21 03:15 Urine Ketones Negative (Negative) 03/28/21 03:15 Urine Blood 3+ (Negative) H 03/28/21 03:15 Urine Nitrate Negative (Negative) 03/28/21 03:15 Urine Bilirubin Neg (Negative) 03/28/21 03:15 Urine Urobilinogen Norm mg/dL (Negative) 03/28/21 03:15 Ur Leukocyte Esterase Negative (Negative) 03/28/21 03:15 Urine RBC 0-4 /hpf (0-2) H 03/28/21 03:15 Urine WBC 0-4 /hpf (0-5) H 03/28/21 03:15 Ur Squamous Epith Cells 0-4 /hpf (0-5) H 03/28/21 03:15 Ur Renal Epithelial Cell 0 /hpf 03/28/21 03:15 Calcium Oxalate Crystal 0-4 /hpf H 03/28/21 03:15 Amorphous Sediment 3+ /hpf 03/28/21 03:15 Urine Bacteria Trace /hpf (NONE) 03/28/21 03:15 Coarse Granular Casts 0-4 /lpf H 03/28/21 03:15 Ur Random Sodium 14 mmol/L 03/28/21 03:15 Ur Random Potassium 62 mmol/L 03/28/21 03:15 Ur Random Chloride 12 mmol/L 03/28/21 03:15 Urine Creatinine 160 mg/dL (39-259) 03/28/21 03:15 Impressions Chest CTA 03/28/21 00:03 IMPRESSION: 1. No pulmonary embolism. 2. Hazy bilateral pulmonary opacities which are consistent with COVID-19. 3. Small hiatal hernia. Radiation Dose CTDIVOL = (mGy): DLP = 597.74 (mGy-cm) Head/Neck Ultrasound 04/03/21 17:42 IMPRESSION: Indeterminate left neck mass measuring nearly 3 cm in size. This does not appear to originate from the thyroid. Further evaluation with CT is recommended. Soft Tissue Neck X-Ray 04/03/21 17:42 IMPRESSION: Limited evaluation of left neck mass due to modality and overlying medical equipment. For further evaluation, would recommend CT of the neck. Neck CT 04/10/21 09:19 IMPRESSION: 1. No evidence of neck mass that would correspond to the previously described ultrasound findings. 2. Thyroid is normal in appearance. 3. A few prominent mediastinal lymph nodes at the thoracic inlet likely reactive. 4. Hazy ground glass infiltrates in the lung apices compatible with COVID 19 Pneumonia. 5. Endotracheal tube with tip above the can. Partially visualized enteric tube. 6. Left IJ catheter extends into the innominate and SVC off the [id number]. Chest X-Ray 04/12/21 16:08 IMPRESSION: 1. Extensive bilateral pulmonary infiltrates appearing slightly more consolidated than noted on the prior study earlier on the same day. 2. Tracheostomy tube, central line and enteric tube all remain in satisfactory position without change. Micro: Microbiology 04/13/21 15:44 Blood Culture - Preliminary Blood SPECIMEN COLLECTED 04/13/21 15:41 Blood Culture - Preliminary Blood SPECIMEN COLLECTED 04/09/21 13:40 Gram Stain - Final Sputum - Endotracheal Tube Aspirate Sputum Culture - Final Yeast species A&P Assessment and plan (1) Acute hypoxemic respiratory failure due to severe acute respiratory syndrome coronavirus 2 (SARS-CoV-2) disease: Status: Acute (2) Acute kidney injury: Status: Acute (3) Hyponatremia: Status: Acute (4) COVID-19: Status: Acute (5) Ischemic cardiomyopathy: Status: Acute (6) Benign essential HTN: Status: Acute (7) Counseling regarding advanced directives and goals of care: Status: Acute #Acute hypoxic respiratory failure secondary to ARDS due to COVID-19 pneumonia #Concern for alcohol withdrawal -as patient takes alcohol every night -Symptoms started 03/20/2021; Test + 03/26/2021, CT 03/28/2020 were negative for pulmonary embolism -Intubated 04/02/2021 -s/p tracheostomy 04/11/2021 -Completed 3 proning sessions -Currently on CMV-450/10/50 % and ABG 7.4 /64/24 -Chest x-ray : Extensive bilateral pulmonary infiltrates appearing slightly more consolidated than noted on the prior study earlier on the same day -Off paralytic and Versed, tapering of fentanyl, propofol and if needed continue Precedex, Ativan as needed for withdrawal given his history of alcohol; -earlier received 1 dose of phenobarbital 130 MCG for alcohol withdrawal -Seroquel 25 mg at bedtime -DuoNeb every 4 scheduled, Pulmicort 0.5 twice daily scheduled -S/p dexamethasone 6 mg daily & Completed remdesivir 5-day course and extended 5 more days -Completed adequate Rocephin and azithromycin for empiric coverage -So far bacterial antigens, MRSA in nares, Legionella urine antigen, sputum culture, blood cultures, TTE negative -CRP 91 -Currently on Lovenox for DVT prophylaxis - fever spikes-on 04/06/2021-cultures 04/06/2021-negative so far; 04/09/2021 sputum cultures-grew yeast-started on fluconazole #Ischemic cardiomyopathy - 12/22/2020 stress test-large area of old myocardial infarction vs scarring -12/22/2020 echo-normal LV cavity size with EF estimated 45% -Aspirin 81/Imdur 30/metoprolol 50/atorvastatin 20 -Keep net negative to even -Lasix as needed # Hypokalemia-resolved -Supplemented-monitor #Deranged LFTs likely secondary to COVID-19 pneumonia-initially improved and now gradually worsening -Abdominal ultrasound --Ammonia -Monitor LFTs #Neck swelling -Soft tissue neck x-ray: limited evaluation of left neck mass due to modality and overlying medical equipment -:Neck ultrasound: solid-appearing left neck mass measuring 2.9 x 2.7 cm of unclear origin,does not appear to originate from the thyroid. -CT neck: no evidence of neck mass that would correspond to the previously described ultrasound findings #Initial 2 days there was difficulty passing NG tube, later successfully inserted and advanced. -Currently patient has OG tube; patient has difficulty passing NG tube multiple times previously-we will leave OG tube for now -Today patient will get PEG tube -Continue tube feeding Goal rate of 30 cc/h #Glucose well controlled #GI prophylaxis famotidine #DVT prophylaxis-Lovenox 40 #Full code #Family updated #Prognosis guarded 04/10/2021: Discussed with about patient's medical condition. Currently is requiring 50% FiO2 on ventilator and has very slow recovery to adequate mentation. We will continue to do awakening trial and if he continues to require 50-60% FiO2 on ventilator-we will plan to do tracheostomy and send patient to long-term acute care facility. Patient verbalized understanding and agreed with the plan. Recommendations conveyed to hospitalist, RN, RT taking care of the patient Attestations Medical Necessity Statement*: Acute hypoxic respiratory failure secondary to ARDS due to COVID-19 pneumonia-intubated and mechanically ventilated and currently being proned still requiring high FiO2 Time Spent in Patient Care: Greater than 35 minutes (>than 50% of time spent in counselling and/or direct pt care on unit). Critical Care Time: The high probability of a clinically significant, sudden or life threatening deterioration of the patient's [pulmonary, neurological, hepatic] system(s) required my full and direct attention, intervention and personal management. The critical care time is as shown. 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
[2021-04-14] VITALS (42 sets, daily range): BP systolic 99–153; BP diastolic 70–91; PULSE 82–121; RESP 15–39; TEMP 36.7–37.8; O2SAT 87–97
[2021-04-14] MEDS: vancomycin 1,500 MG/300 ML PIGGYBACK 200 MG IV ×2 (01:55→10:28)
[2021-04-14] MEDS: ipratropium-albuterol 3 mL Neb INHALATION ×5 (03:17→23:27)
[2021-04-14 03:56] LABS: Basophils % 0.2 %; Eosinophils # 0.2 10^3/uL (0.0-0.8); Hematocrit 29.2 % (42.0-52.0); Hemoglobin 9.2 g/dL (11.7-16.6); Lymphocytes # 0.5 10^3/uL (0.8-4.8); Lymphocytes % 5.2 %; Mean Corpuscular HGB Conc 31.5 g/dL (30.0-36.0); Mean Corpuscular Hemoglobin 34.2 pg (28.0-34.0); Mean Corpuscular Volume 108.6 fl (80-94); Mean Platelet Volume 11.5 fL (7.4-10.4); Monocytes # 0.5 10^3/uL (0.2-0.9); Monocytes % 5.1 %; Neutrophils # 8.72 10^3/uL (1.8-7.7); Neutrophils % 87.1 %; Nucleated Red Blood Cells % 0 %; Platelet Count 202 10^3/cmm (130-400); Red Blood Count 2.69 10^6/uL (4.1-5.3); Red Cell Distribution Width 12.7 % (12.1-15.1)
[2021-04-14] MEDS: cefepime 2,000 MG in sodium chloride 0.9% (plus) 50 ML 100 MG IV ×2 (04:44→16:19)
[2021-04-14 04:55] LABS: Alanine Aminotransferase 66 U/L (0-41); Albumin Level 1.7 g/dL (3.5-5.2); Alkaline Phosphatase 130 IU/L (40-130); Aspartate Amino Transferase 95 U/L (0-40); Blood Urea Nitrogen 22 mg/dL (8-23); Calcium 8.6 mg/dL (8.5-10.5); Carbon Dioxide 18 mmol/L (22-29); Chloride 104 mmol/L (98-107); Globulin 5.2 g/dL (1.3-4.6); Glomerular Filtration Rate 114.6 mL/min (90-130); Glucose 70 mg/dL (65-115); Osmolality Calculated 286 mOsm/kg (285-295); Sodium 137 mmol/L (136-145); Total Bilirubin 2.1 mg/dL (0.15-1.2); Total Protein 6.9 g/dL (6.6-8.7)
--- NOTE | 2021-04-14 06:13 | PC.NURSE ---
Shift Note Frequent safety and comfort rounds continue. Orders and nursing care completed as indicated. Patient monitored for response to intervention and treatments. Education provided including calming measures in conjunction with medication. Patient continues to need reinforcement. Dr. Morrissey at bedside this AM. Discussed starting trickle feeds today and increased swelling of left arm. Trach care provided this AM. Sutures intact. no bleeding noted. minimal drainage when dressing changed. Will continue to monitor.
--- NOTE | 2021-04-14 06:24 | USR_ITS ---
PROCEDURE INFORMATION: Exam: US Duplex Left Upper Extremity Veins, Limited Exam date and time: 04/14/2021 6:24 AM Age: 60 years old Clinical indication: Edema, localized; Upper extremity, left TECHNIQUE: Imaging protocol: Real-time Duplex ultrasound of the Left Upper Extremity with 2-D landis scale, color Doppler flow and spectral waveform analysis with image documentation. Limited exam focused on the left upper extremity veins. Total images: 36 COMPARISON: CT angio chest PE protcl [id number] 03/28/2021 12:26 AM FINDINGS: Left deep veins: Unremarkable. Axillary and brachial veins are patent throughout without thrombus. Normal Doppler waveforms. Normal compressibility and/or augmentation response. Visualized internal jugular and subclavian veins are patent. Left superficial veins: Unremarkable. Visualized cephalic and basilic veins above the elbow are patent without thrombus. Within the left forearm the cephalic vein shows echogenic thrombus and incomplete compressibility, suggesting venous thrombosis. Soft tissues: Mild edema seen in the superficial soft tissues of the forearm. US/[place] [id number] IMPRESSION: Thrombus seen within the cephalic vein of the left forearm. No thrombus proximal/above the left elbow nor elsewhere within the left upper extremity.
--- NOTE | 2021-04-14 07:13 | PM.PN ---
Subjective Subjective: Interval history: Christopher can open his eyes up. He follows instructions. Denies pain. Medications: Reviewed: Yes Vitals/I&O/Wt Last Vital Signs Temp 99 F 04/14/21 00:30 Pulse 109 H 04/14/21 06:00 Resp 31 H 04/14/21 06:12 BP 137/83 04/14/21 06:00 Pulse Ox 94 04/14/21 06:12 04/13/21 04/14/21 04/14/21 22:59 06:59 14:59 Intake Total 715.807 / 1061.609 437.71 / 1499.319 Output Total 425 / 425 650 / 1075 Balance 290.807 / 636.609 -212.29 / 424.319 Weight last 48 hrs Weight 85.814 kg Weight 86.183 kg Physical Exam Narrative: EXAM NARRATIVE: General exam no distress Neck is supple no lymphadenopathy or thyromegaly. Tracheostomy noted Cardiovascular regular rate and rhythm without murmur Lungs coarse breath sounds bilaterally Abdomen is soft, positive bowel sounds Extremities no cyanosis clubbing. Left arm has edema. Urinary Catheter Management^: Mullen: Cath Placed During This Visit: yes, but has since been removed by the nurse Reason for Continuing Indwelling Catheter: Accurate Measurement of Urinary Output in Critically Ill Patients Urinary Catheter Date of Insertion: 04/06/21 Urinary Catheter Time of Insertion: 11:09 Date Urinary Catheter Removed: 04/06/21 Time Urinary Catheter Discontinued: 11:07 Data : 04/13/21 04:00 04/14/21 03:33 Micro: Microbiology 04/13/21 15:44 Blood Culture - Preliminary Blood SPECIMEN COLLECTED 04/13/21 15:41 Blood Culture - Preliminary Blood SPECIMEN COLLECTED 04/09/21 13:40 Gram Stain - Final Sputum - Endotracheal Tube Aspirate Sputum Culture - Final Yeast species Other data: CBC today pending A&P Assessment and plan (1) Hypoxemia: Hypoxic respite failure with ARDS secondary to severe COVID-19. Appreciate pulmonary critical care consultation. He has completed his course of remdesivir, and dexamethasone Initial antibiotic course of azithromycin, ceftriaxone discontinued. On April 13 he began spiking temperatures again. FiO2 increased. Last culture now growing some yeast. Fluconazole had previously been initiated. Check urine culture, blood culture, sputum culture repeated and vancomycin and cefepime initiated 04/13 Continue to wean FiO2 as tolerated. Currently at 60%. Tracheostomy performed late April 11 PEG tube was placed 04/13. This can likely be used today after clearance from surgery. Overall plan is placement to long-term care. Currently receiving Precedex for sedation. Also on fentanyl. We will try to wean fentanyl down. Status: Acute (2) COVID-19: Severe COVID-19 with ARDS. As above. Status: Acute (3) Ischemic cardiomyopathy: No symptoms currently Status: Acute (4) Acute kidney injury: Resolved. Status: Acute (5) Hyponatremia: Resolved. Status: Acute (6) Atherosclerosis of coronary artery of [place] heart without angina pectoris: Continue cardiac medications. Status: Acute Qualifiers: Coronary Disease-Associated Artery/Lesion type: unspecified vessel or lesion type Qualified Code(s): I25.10 - Atherosclerotic heart disease of [place] coronary artery without angina pectoris (7) Dyslipidemia: Status: Acute (8) Benign essential HTN: Status: Acute (9) Neck mass: Indeterminate left neck mass measuring nearly 3 cm in size, does not appear to originate from the thyroid. CT scan performed today demonstrates no mass Status: Acute (10) Fever: Recurrence. See notation above. Status: Acute Additional A&P Information Hypokalemia, corrected Left arm edema. Check venous duplex. Overall plan, is to try to transfer to long-term care for rehabilitation. Tracheostomy has been performed. PEG tube placed 04/13 Lovenox was on hold for tracheostomy and PEG tube. Resume today. Attestations Medical Necessity Statement*: Needs continued hospitalization secondary to respiratory failure requiring mechanical ventilation. Critical Care Time: The high probability of a clinically significant, sudden or life threatening deterioration of the patient's [pulmonary, infectious disease] system(s) required my full and direct attention, intervention and personal management. The critical care time is as shown. 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
[2021-04-14] MEDS: budesonide 0.5 mg/2 mL Neb INHALATION ×2 (08:20→20:04)
[2021-04-14] MEDS: guaiFENesin 600 mg Tablet 1200 MG PO ×2 (08:42→18:07)
[2021-04-14] MEDS: metoprolol succinate ER (24 HR) 50 mg Tablet PO (08:42)
[2021-04-14] MEDS: ferrous gluconate 324 mg Tablet PO ×2 (08:42→18:07)
[2021-04-14] MEDS: multivitamin therapeutic Tablet 1 TAB PO (08:42)
[2021-04-14] MEDS: famotidine 20 mg Tablet PEG-TUBE ×2 (08:42→18:07)
[2021-04-14] MEDS: folic acid 1 mg Tablet PO (08:42)
[2021-04-14] MEDS: aspirin 81 mg EC Tablet PO (08:42)
[2021-04-14] MEDS: isosorbide mononitrate ER 30 mg Tablet PO (08:42)
[2021-04-14] MEDS: enoxaparin 40 mg/0.4 mL Syringe SUBCUT (08:43)
[2021-04-14] MEDS: thiamine 100 mg Tablet PO (08:43)
[2021-04-14 09:12] LABS: Glucose Point of Care 80 mg/dL (70-110)
[2021-04-14] MEDS: acetaminophen 325 mg Tablet 650 MG PO ×2 (10:58→21:32)
--- NOTE | 2021-04-14 11:30 | PC.NURSE ---
Dr Cuevas called to inquire about restarting tube feeding in new PEG tube. Stated Dietary has been consulted. When Dietary sees pt and makes recommendations, then Hospitalist may resume nutrition orders.
[2021-04-14] MEDS: LORazepam 2 mg/mL INJ 1 mL 1 MG IVP ×2 (12:28→21:33)
[2021-04-14] MEDS: dexmedetomidine 400 MCG in sodium chloride 0.9% (100 ml) 100 ML 10.74 MCG IV ×2 (12:36)
[2021-04-14 13:09] LABS: Glucose Point of Care 98 mg/dL (70-110)
[2021-04-14 14:59] LABS: Ammonia 28 umol/L (16-60)
--- NOTE | 2021-04-14 15:00 | PC.NURSE ---
Fusing Machine Operator has not arrived. Message left with Dietary inquiring about expected time frame. Was informed Fusing Machine Operator would be called to relay info but no time frame given for consult as gunstock spray unit adjuster is PRN.
[2021-04-14] MEDS: fentaNYL 50 mcg/mL INJ 2mL 25 MCG IVP (16:20)
--- NOTE | 2021-04-14 16:45 | PC.NURSE ---
Dr Alberto notified that Dietary has not consulted pt at this time. Dr Cuevas stated hospitalist will resume responsibility of tube feeding orders. Dr Alberto stated additional Pre School Teacher referral not necessary since one already consulted prior to PEG insertion. Dr Alberto provided tube feeding orders per refinery operator's recommendation via telephone at this time. Will initiate.
--- NOTE | 2021-04-14 16:53 | PC.NURSE ---
TUBE FEEDING ORDER via Dr Alberto via telephone at 1650 on 04/14/21. Unable to fit all of tube feeding order in order text field. Order: Jevity 1.2. Start feeding at 15 mls/hr. Increase feeding by 15 mLs Q12h until goal of 40mLs/hr is reached 150 ml flush of H2O q 4 hours. Tube feeding will start at 1700 on 04/14/21 at rate of 15mls.
[2021-04-14] MEDS: fluconazole premix 400 MG/200 ML PIGGYBACK 200 MG IV (18:13)
[2021-04-14 18:23] LABS: Vancomycin Trough 27.4 ug/mL (10-15)
[2021-04-14 18:34] LABS: Glucose Point of Care 88 mg/dL (70-110)
--- NOTE | 2021-04-14 18:38 | PC.NURSE ---
Vanc Trough 27.4. [address] protocol[address] Alberto notified d/t policy if trough> 20 physician must be notified. Pharmacy also notified.
[2021-04-14] MEDS: quetiapine 25 mg Tablet PO (21:33)
[2021-04-15] VITALS (38 sets, daily range): BP systolic 86–125; BP diastolic 57–89; PULSE 61–118; RESP 29–40; TEMP 37.2–38; O2SAT 88–99
[2021-04-15] MEDS: dexmedetomidine 400 MCG in sodium chloride 0.9% (100 ml) 100 ML 12.89 MCG IV ×2 (00:10→09:06)
[2021-04-15] MEDS: ipratropium-albuterol 3 mL Neb INHALATION ×5 (03:35→23:31)
[2021-04-15] MEDS: vancomycin 1,500 MG/300 ML PIGGYBACK 200 MG IV ×2 (04:01→15:15)
[2021-04-15] MEDS: cefepime 2,000 MG in sodium chloride 0.9% (plus) 50 ML 100 MG IV ×2 (04:02→16:28)
[2021-04-15 05:10] LABS: Anion Gap 17.3 (5-19); Blood Urea Nitrogen 25 mg/dL (8-23); Calcium 9.1 mg/dL (8.5-10.5); Carbon Dioxide 20 mmol/L (22-29); Chloride 108 mmol/L (98-107); Glomerular Filtration Rate 98.3 mL/min (90-130); Glucose 112 mg/dL (65-115); Osmolality Calculated 297 mOsm/kg (285-295); Potassium 4.3 mmol/L (3.5-5.1); Sodium 141 mmol/L (136-145)
--- NOTE | 2021-04-15 05:53 | PC.NURSE ---
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 Original Note: Shift Note Frequent safety and comfort rounds continue. Orders and/or nursing care completed as indicated. Patient monitored for response to intervention and treatment(s). Education provided includes[]. Patient and/or patient intake representative [ResponseToTeaching]. Patient tolerated decreased fentanyl titration to MD requested goal. GTT's titrated per protocol. Tube feeding at goal and tolerating. Ventilator managed by RT. Tracheostomy site cleaned with dressing change. Patient opens eyes but will not track or follow commands. Will continue to monitor.
[2021-04-15] MEDS: guaiFENesin 600 mg Tablet 1200 MG PO ×2 (08:00→17:51)
[2021-04-15] MEDS: aspirin 81 mg EC Tablet PO (08:00)
[2021-04-15] MEDS: metoprolol succinate ER (24 HR) 50 mg Tablet PO (08:00)
[2021-04-15] MEDS: isosorbide mononitrate ER 30 mg Tablet PO (08:00)
[2021-04-15] MEDS: ferrous gluconate 324 mg Tablet PO ×2 (08:00→17:51)
[2021-04-15] MEDS: folic acid 1 mg Tablet PO (08:00)
[2021-04-15] MEDS: thiamine 100 mg Tablet PO (08:00)
[2021-04-15] MEDS: famotidine 20 mg Tablet PEG-TUBE ×2 (08:00→17:51)
[2021-04-15] MEDS: multivitamin therapeutic Tablet 1 TAB PO (08:00)
[2021-04-15] MEDS: enoxaparin 40 mg/0.4 mL Syringe SUBCUT (08:01)
[2021-04-15] MEDS: budesonide 0.5 mg/2 mL Neb INHALATION ×2 (08:12→20:25)
--- NOTE | 2021-04-15 09:07 | P.PN_ITS ---
Subjective Subjective: Interval history: Sleeping/sedated. Overbreathing the vent. Reportedly became restless previously, currently on fentanyl, Precedex. Weaning down. Vitals/I&O/Wt Last Vital Signs Temp 100.1 F H 04/15/21 04:00 Pulse 116 H 04/15/21 08:45 Resp 40 H 04/15/21 08:45 BP 86/61 04/15/21 06:00 Pulse Ox 93 04/15/21 08:45 04/14/21 04/15/21 04/15/21 22:59 06:59 14:59 Intake Total 327.413 / 781.891 410.55 / 1192.441 104 / 104 Output Total 620 / 620 800 / 1420 Balance -292.587 / 161.891 -389.45 / -227.559 104 / 104 Weight last 48 hrs Weight 84.958 kg Weight 85.814 kg Physical Exam Const: COMMON NORMALS: no acute distress GENERAL APPEARANCE: lethargic and patient mechanically ventilated ORIENTATION/CONSCIOUSNESS: Yes lethargic HENMT: COMMON NORMALS: oropharynx normal FACE & SINUS: other (Left of midline anterior solid neck mass) Neck/C-Spine: COMMON NORMALS: no JVD Resp: AUSCULTATION: rhonchi, wheezes left lower and diminished lung sounds on the right in the lower lung cardenas Cardio: COMMON NORMALS: no JVD, regular rhythm, S1 normal heart sound present, S2 normal heart sound present and No murmurs present (Cardio) RATE: tachycardic RHYTHM: regular rhythm HEART SOUNDS: S1 normal heart sound present and S2 normal heart sound present GI: COMMON NORMALS: Normal to inspection, nondistended, normoactive bowel sounds present and Soft to palpation PALPATION: Yes Soft to palpation Extremity: COMMON NORMALS: no joint enlargement and no pedal edema Neuro: SENSORIUM/ORIENTATION: Yes lethargic Skin: COMMON NORMALS: no rashes or lesions noted GENERAL SKIN EXAM: no rashes or lesions noted Urinary Catheter Management^: Mullen: Cath Placed During This Visit: yes, but has since been removed by the nurse Reason for Continuing Indwelling Catheter: Accurate Measurement of Urinary Output in Critically Ill Patients Urinary Catheter Date of Insertion: 04/06/21 Urinary Catheter Time of Insertion: 11:09 Date Urinary Catheter Removed: 04/06/21 Time Urinary Catheter Discontinued: 11:07 Data : 04/14/21 03:33 04/15/21 04:22 Micro: Microbiology 04/14/21 16:20 Gram Stain - Final Sputum - Endotracheal Tube Aspirate 04/13/21 15:44 Blood Culture - Preliminary Blood NEGATIVE TO DATE 04/13/21 15:41 Blood Culture - Preliminary Blood NEGATIVE TO DATE A&P Assessment and plan (1) Hypoxemia: Hypoxia persists. FiO2 requirement up slightly to 65%. Today noted wheezing left lower lung, reduced air entry right lower lung. Assess chest x-ray. Also persistent tachycardia. 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 Imdur held. Metoprolol dose reduced to 25 mg. Generally blood pressure 113 systolic. Low-grade fever 100.1. Noted thrombophlebitis with thrombus within cephalic vein of left forearm. Possibly contributing to fever. Initial plan was for repeat chest x-ray, however, with concern for possible VTE, with DDimer likely to be elevated given above additional imaging would be needed to exclude this. As he currently would be unable to complete the VQ scan, discussed regarding risks and benefits of CT angiogram with his including risks of allergic reaction, EDGAR. This is requested after she is agreeable with proceeding. Continue cefepime, vancomycin. Sputum cultures were repeated 04/14. He has completed his course of remdesivir, and dexamethasone Initial antibiotic course of azithromycin, ceftriaxone. Tracheostomy performed late April 11 PEG tube was placed 04/13. Arrangements also underway for placement to long-term care. Status: Acute (2) COVID-19: Severe COVID-19 with ARDS. As above. Status: Acute (3) Ischemic cardiomyopathy: No symptoms currently Status: Acute (4) Acute kidney injury: Resolved. Status: Acute (5) Hyponatremia: Resolved. Status: Acute (6) Atherosclerosis of coronary artery of [place] heart without angina pectoris: Continue cardiac medications. Status: Acute Qualifiers: Coronary Disease-Associated Artery/Lesion type: unspecified vessel or lesion type Qualified Code(s): I25.10 - Atherosclerotic heart disease of [place] coronary artery without angina pectoris (7) Dyslipidemia: Status: Acute (8) Benign essential HTN: Status: Acute (9) Neck mass: Indeterminate left neck mass measuring nearly 3 cm in size, does not appear to originate from the thyroid. CT scan neck demonstrated no mass Status: Acute (10) Fever: Recurrence. See notation above. Status: Acute Additional A&P Information Hypokalemia, corrected Left arm edema. Cephalic vein thrombus. Overall plan, is to try to transfer to long-term care for rehabilitation. Tracheostomy has been performed. PEG tube placed 04/13 Attestations Medical Necessity Statement*: Continue admission for assessment of management of hypoxic respiratory failure, additional assessment of persistent/worsening hypoxia, persistent tachycardia, additional assessment for possible PE. Critical Care Time: In addition to noncritical issues, 35 minutes critical care time spent on assessment management of persistent hypoxic respiratory failure evaluation of additional etiologies, including possible PE. Discussed with nursing staff, respiratory therapy at bedside. Discussed with patient's family. 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
--- NOTE | 2021-04-15 09:23 | CTR_ITS ---
PROCEDURE INFORMATION: Exam: CTA Chest With Contrast Exam date and time: 04/15/2021 9:23 AM Age: 60 years old Clinical indication: Dyspnea; Additional info: Hypoxia, tachycardia, ue thrombophlebitis, assess for pe, COVID positive TECHNIQUE: Imaging protocol: Computed tomographic angiography of the chest with contrast. 3D rendering (Not supervised by radiologist): MIP and/or 3D reconstructed images were created by the technologist. Radiation optimization: All CT scans at this facility use at least one of these dose optimization techniques: automated exposure control; mA and/or kV adjustment per patient size (includes targeted exams where dose is matched to clinical indication); or iterative reconstruction. Contrast material: OMNIPAQUE 350; Contrast volume: 56 ml; Contrast route: INTRAVENOUS (IV); COMPARISON: CT angio chest PE protcl [id number] 03/28/2021 12:26 AM RADIATION DOSE METRICS: Total DLP (mGy-cm): 541.82 FINDINGS: Tubes, catheters and devices: Tracheostomy tube terminates in proper position above the can. Pulmonary arteries: Please note, motion artifact particularly at the lung bases limits evaluation of the segmental/subsegmental branches in this region. No evidence of pulmonary emboli. Aorta: Unremarkable. No aortic aneurysm. No aortic dissection. Veins: A left central line terminates in the proximal SVC. Lungs: Emphysematous changes lungs with air trapping. There are also patulous areas of peripheral ground-glass opacities throughout the lungs, predominantly located in the lung bases, with some corresponding areas of mild traction bronchiectasis in this regions suggesting some underlying scarring/fibrosis. Pleural spaces: Unremarkable. No pneumothorax. No pleural effusion. Heart: Coronary artery calcifications with mild cardiomegaly. Lymph nodes: Mildly enlarged mediastinal and hilar lymph nodes may be reactive. Bones/joints: No acute fracture. Soft tissues: Unremarkable. CT/CT angio chest PE protcl [id number] IMPRESSION: 1. No evidence of pulmonary emboli within the limitations of the examination described in the body of the report. 2. Patulous peripheral ground-glass opacities within the lungs consistent with COVID pneumonia. There are mild areas of traction bronchiectasis in these regions suggestive of underlying scarring/fibrosis. Radiation Dose CTDIVOL = (mGy): DLP = 541.82 (mGy-cm)
[2021-04-15] MEDS: iohexol 350 mg/mL 100 mL Btl IV (10:26)
[2021-04-15] MEDS: LORazepam 2 mg/mL INJ 1 mL 1 MG IVP (12:16)
[2021-04-15] MEDS: fluconazole premix 400 MG/200 ML PIGGYBACK 200 MG IV (16:28)
[2021-04-15] MEDS: dexmedetomidine 400 MCG in sodium chloride 0.9% (100 ml) 100 ML 15.03 MCG IV ×2 (17:26→23:52)
--- NOTE | 2021-04-15 18:14 | PC.NURSE ---
Shift Note Frequent safety and comfort rounds continue. Orders and/or nursing care completed as indicated. Patient monitored for response to intervention and treatment(s). Education provided includes treatment plan and medication administration. Family verbalizes understanding. VSS. Pt does not tolerate sedation weaning well, becomes tachypneic at times. Requires frequent suctioning. Will continue to monitor.
[2021-04-15] MEDS: quetiapine 25 mg Tablet PO (20:52)
[2021-04-16] VITALS (38 sets, daily range): BP systolic 89–170; BP diastolic 45–101; PULSE 78–117; RESP 28–37; TEMP 37.4–38.6; O2SAT 84–98
[2021-04-16] MEDS: ipratropium-albuterol 3 mL Neb INHALATION ×7 (03:50→23:43)
[2021-04-16 04:39] LABS: Basophils % 0.4 %; Eosinophils # 0.3 10^3/uL (0.0-0.8); Eosinophils % 3.9 %; Hematocrit 32.2 % (42.0-52.0); Hemoglobin 10.3 g/dL (11.7-16.6); Lymphocytes # 0.7 10^3/uL (0.8-4.8); Lymphocytes % 7.8 %; Mean Corpuscular Hemoglobin 34.1 pg (28.0-34.0); Mean Corpuscular Volume 106.6 fl (80-94); Mean Platelet Volume 10.8 fL (7.4-10.4); Monocytes # 0.5 10^3/uL (0.2-0.9); Neutrophils # 6.96 10^3/uL (1.8-7.7); Neutrophils % 81.4 %; Nucleated Red Blood Cells % 0 %; Platelet Count 211 10^3/cmm (130-400); Red Blood Count 3.02 10^6/uL (4.1-5.3); Red Cell Distribution Width 12.8 % (12.1-15.1); White Blood Count 8.5 10^3/uL (4.0-10.0)
[2021-04-16] MEDS: cefepime 2,000 MG in sodium chloride 0.9% (plus) 50 ML 100 MG IV ×2 (04:40→16:34)
[2021-04-16 05:19] LABS: Alanine Aminotransferase 137 U/L (0-41); Alkaline Phosphatase 196 IU/L (40-130); Anion Gap 11.7 (5-19); Aspartate Amino Transferase 232 U/L (0-40); Blood Urea Nitrogen 23 mg/dL (8-23); Carbon Dioxide 22 mmol/L (22-29); Chloride 107 mmol/L (98-107); Glomerular Filtration Rate 98.3 mL/min (90-130); Glucose 104 mg/dL (65-115); Osmolality Calculated 288 mOsm/kg (285-295); Potassium 3.7 mmol/L (3.5-5.1); Sodium 137 mmol/L (136-145); Total Bilirubin 1.6 mg/dL (0.15-1.2)
--- NOTE | 2021-04-16 05:31 | PC.NURSE ---
Shift Note Frequent safety and comfort rounds continue. Orders and/or nursing care completed as indicated. Patient monitored for response to intervention and treatment(s). Education provided includes pain control. Patient and/or dental detail representative reinforcement needed. Will continue to monitor.
[2021-04-16] MEDS: dexmedetomidine 400 MCG in sodium chloride 0.9% (100 ml) 100 ML 15.03 MCG IV ×3 (05:53→21:02)
[2021-04-16] MEDS: vancomycin 1,500 MG/300 ML PIGGYBACK 200 MG IV ×2 (07:48→19:14)
[2021-04-16] MEDS: enoxaparin 40 mg/0.4 mL Syringe SUBCUT (07:51)
[2021-04-16] MEDS: aspirin 81 mg EC Tablet PO (08:02)
[2021-04-16] MEDS: ferrous gluconate 324 mg Tablet PO ×2 (08:02→17:09)
[2021-04-16] MEDS: folic acid 1 mg Tablet PO (08:02)
[2021-04-16] MEDS: multivitamin therapeutic Tablet 1 TAB PO (08:02)
[2021-04-16] MEDS: guaiFENesin 600 mg Tablet 1200 MG PO ×2 (08:02→17:09)
[2021-04-16] MEDS: famotidine 20 mg Tablet PEG-TUBE ×2 (08:02→17:09)
[2021-04-16] MEDS: thiamine 100 mg Tablet PO (08:03)
[2021-04-16] MEDS: lanolin oint 7 gm 1 APPLIC TOPICAL (08:03)
[2021-04-16] MEDS: budesonide 0.5 mg/2 mL Neb INHALATION ×2 (08:12→19:57)
--- NOTE | 2021-04-16 08:35 | PC.CHAP ---
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 muffler hand visit [] Patient/Family/Request visit [] Outpatient visit [] Follow-up visit [] Physician referral [] Code/Alert [x] Routine visit [] Staff referral [] Actively dying [] Patient sleeping [] Family support [] [] Out of room [] Palliative care [] [] Receiving care in room [] Pre-surgical visit [] Trauma [] Long length of stay [x] ICU visit [x] Other: covid Relational/Emotional Strength [] Patient feels connected with others/family/visitors/staff [] Distress [] Loneliness/isolation [] Abandonment Spirituality of Patient [] Person of [place] [] Attends Synagogue of their [place] [] Believes in Prayer [] Reads Bible or Latter-Day materials [] There are Spiritual issues to be addressed Facing End Trimmer Interventions [x] Prayer [] Active listening [] Non-anxious presence [] Spiritual/emotional support [] Crisis/trauma care [] Spiritual counseling [] Bereavement support [] Provided bereavement packet [] Provided Bible/devotional materials [] Provided toy/stuffed animal, coloring book to patient or family member [] Provided Communion [] Anointing/[place] [] Salvation [x] Completed spiritual assessment [] Other: Impact on Illness or Injury [] Angry [] Fearful [] Anxious [] Often cries [] Exhaustion [] Unable to work [] Unable to attend tenriism [] Unable to walk/stand [] Unable to read [] Unable to drive [] Unable to eat/drink [] Unable to sleep [] Unable to be with family [] Patient intubated [] Other: Summary entered room and prayed for patient... Time spent with patient
--- NOTE | 2021-04-16 10:46 | PM.PN ---
Documented by User: DIONE Cottrell STDALIYAH 04/16/21 11:37 Subjective Subjective: Interval history: Sleeping, opens eyes when spoken to. Moved fingers and toes when instructed. Overbreathing the vent. Medications: Reviewed: Yes Vitals/I&O/Wt Last Vital Signs Temp 100.0 F H 04/16/21 08:00 Pulse 81 04/16/21 10:00 Resp 37 H 04/16/21 09:29 BP 121/81 04/16/21 10:00 Pulse Ox 98 04/16/21 10:00 04/15/21 04/16/21 04/16/21 22:59 06:59 14:59 Intake Total 1272.486 / 4631.431 7656.124 / 2483.791 618.00 / 618.00 Output Total 675 / 675 500 / 1175 Balance 597.486 / 761.667 547.124 / 1308.791 618.00 / 618.00 Weight last 48 hrs Weight 86.353 kg Weight 84.958 kg Physical Exam Narrative: EXAM NARRATIVE: Gen: no acute distress Neck: supple, no JVD. Central line placed on left. Tracheostomy noted. Resp: Course breath sounds B/L Cardio: RRR, no murmus, rubs, or gallops. GI: soft, non tender, positive bowel sounds all quadrants. PEG tube noted. Ext: no cyanosis, clubbing, edema. Urinary Catheter Management^: Mullen: Cath Placed During This Visit: yes, but has since been removed by the nurse Reason for Continuing Indwelling Catheter: Accurate Measurement of Urinary Output in Critically Ill Patients Urinary Catheter Date of Insertion: 04/06/21 Urinary Catheter Time of Insertion: 11:09 Date Urinary Catheter Removed: 04/06/21 Time Urinary Catheter Discontinued: 11:07 Data : 04/16/21 03:33 04/16/21 03:33 Micro: Microbiology 04/14/21 16:20 Gram Stain - Final Sputum - Endotracheal Tube Aspirate Sputum Culture - Preliminary 04/13/21 15:45 Urine Culture - Final Urine,Voided Yeast A&P Assessment and plan (1) Hypoxemia: Hypoxic with ARDS secondary to severe COVID-19. FiO2 requirement 60%. Urine culture growing yeast. Sputum culture previously showed yeast. Replaced fluconazole with Caspofungin. Plan to remove central line and place PICC line. Currently receiving Precedex and fentanyl for sedation. We will try to wean fentanyl down. Noted thrombophlebitis with thrombus within cephalic vein of left forearm. Plan for OT and PT consult for weakness Overall plan is placement to long-term care. Continue cefepime, vancomycin. Sputum cultures were repeated 04/14. He has completed his course of remdesivir, and dexamethasone Tracheostomy performed late April 11 PEG tube was placed 04/13. Arrangements also underway for placement to long-term care. Status: Acute (2) COVID-19: Severe COVID-19 with ARDS. As above. Status: Acute (3) Ischemic cardiomyopathy: No symptoms currently Status: Acute (4) Acute kidney injury: Resolved. Status: Acute (5) Hyponatremia: Resolved. Status: Acute (6) Atherosclerosis of coronary artery of [place] heart without angina pectoris: Continue cardiac medications. Status: Acute Qualifiers: Coronary Disease-Associated Artery/Lesion type: unspecified vessel or lesion type Qualified Code(s): I25.10 - Atherosclerotic heart disease of [place] coronary artery without angina pectoris (7) Dyslipidemia: Status: Acute (8) Benign essential HTN: Status: Acute (9) Neck mass: Indeterminate left neck mass measuring nearly 3 cm in size, does not appear to originate from the thyroid. CT scan neck demonstrated no mass Status: Acute (10) Fever: Status: Acute Additional A&P Information Left arm edema. Cephalic vein thrombus. Overall plan, is to try to transfer to long-term care for rehabilitation. Tracheostomy has been performed. 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 Medications: Reviewed: Yes Physical Exam Narrative: EXAM NARRATIVE: General exam no distress. Spiking an occasional fever. Neck demonstrates tracheostomy Cardiovascular regular rate and rhythm without murmur Lungs clear but diminished breath sounds bilaterally. Abdomen is soft, positive bowel sounds Extremities lower demonstrate no cyanosis clubbing or edema. Edema of left upper extremity is improved. Urinary Catheter Management^: Mullen: Cath Placed During This Visit: no Data : 04/16/21 03:33 04/16/21 03:33 Other data: Yeast has now grown out of urine. Previously grew out of sputum. A&P Additional A&P Information Agree with notations above. 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 Secondary to his recurrent fevers cefepime and vancomycin were initiated last week, on April 13. Secondary to persistent elevated temperatures and yeast growing out of 2 different areas will change fluconazole to caspofungin Continue to try to wean FiO2 as tolerated Wean off fentanyl. Can still use as needed. Discontinue central line Place PICC line Overall plan is still to get to skilled care No other changes needed at this time Attestations Medical Necessity Statement*: Needs continued hospitalization secondary to severe COVID-19 pneumonia requiring mechanical ventilation Critical Care Time: The high probability of a clinically significant, sudden or life threatening deterioration of the patient's [pulmonary, infectious] system(s) required my full and direct attention, intervention and personal management. The critical care time is as shown. 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
--- NOTE | 2021-04-16 10:56 | PC.NURSE ---
Pt more alert today, attempting to talk and moving arms more. Spoke with r/t picc placement, consent on chart, to come visit tomorrow. No c/o pain. Tachypniec at times. Attempting to reduce sedation today. Will monitor.
--- NOTE | 2021-04-16 11:35 | PC.NURSE ---
Jannet from [facility] at bedside for eval, informed of 's concerns r/t payment, he stated that he will have pilates coordinator reach out out to her .
--- NOTE | 2021-04-16 12:14 | XRR_ITS ---
PROCEDURE INFORMATION: Exam: XR Chest Exam date and time: 04/16/2021 12:14 PM Age: 60 years old Clinical indication: Device placement; Picc; Additional info: Post picc placement, patient is in icu 4. Will call when ready. TECHNIQUE: Imaging protocol: XR of the chest. Views: 1 view. COMPARISON: CR XR chest 1V portable [id number] 04/12/2021 4:19 PM FINDINGS: Tubes, catheters and devices: A PICC line is present on the right side extending into the SVC; A left central line is in place extending to the SVC. A tracheostomy tube is present above the can. Lungs: Interstitial densities seen in the right mid and lower lobe and in the left lower lobe. There has been improved aeration in the lungs since prior examination. Pleural spaces: Unremarkable. No pleural effusion. No pneumothorax. Heart/Mediastinum: Unremarkable. No cardiomegaly. Bones/joints: Unremarkable. XR/XR chest 1V portable [id number] IMPRESSION: 1. Interstitial densities bilateral lower lobes. Improved aeration since prior 2. Right side PICC line in the SVC. 3. Left side central line in the SVC 4. Tracheostomy tube above the can
[2021-04-16] MEDS: LORazepam 2 mg/mL INJ 1 mL 1 MG IVP (12:29)
--- NOTE | 2021-04-16 13:31 | PC.NURSE ---
PICC placed, CXR obtained and ok to use line given.
--- NOTE | 2021-04-16 14:34 | PC.NURSE ---
Central line removed, pressure held. No bleeding noted after dressing applied. All gtts moved to picc line, tolerated well.
[2021-04-16] MEDS: metoprolol succinate ER (24 HR) 25 mg Tablet PO (15:35)
[2021-04-16] MEDS: isosorbide mononitrate ER 30 mg Tablet PO (15:35)
[2021-04-16] MEDS: fentaNYL 50 mcg/mL INJ 2mL 25 MCG IVP (16:32)
--- NOTE | 2021-04-16 18:14 | PC.NURSE ---
Shift Note Frequent safety and comfort rounds continue. Orders and/or nursing care completed as indicated. Patient monitored for response to intervention and treatment(s). Education provided includes PICC placement and treatment plan. Family verbalizes understanding. Gtts per orders. Pt byrd not tolerate sedation weaning well. Will continue to monitor.
[2021-04-16] MEDS: acetaminophen 325 mg Tablet 650 MG PO (20:08)
[2021-04-16] MEDS: quetiapine 25 mg Tablet PO (20:08)
[2021-04-17] VITALS (41 sets, daily range): BP systolic 93–154; BP diastolic 67–101; PULSE 85–124; RESP 28–42; TEMP 37.3–38.1; O2SAT 90–96
[2021-04-17] MEDS: ipratropium-albuterol 3 mL Neb INHALATION ×6 (03:26→23:40)
[2021-04-17] MEDS: cefepime 2,000 MG in sodium chloride 0.9% (plus) 50 ML 100 MG IV ×2 (05:19→16:57)
[2021-04-17] MEDS: dexmedetomidine 400 MCG in sodium chloride 0.9% (100 ml) 100 ML 12.89 MCG IV ×3 (05:22→22:21)
--- NOTE | 2021-04-17 06:15 | PC.NURSE ---
Shift Note Frequent safety and comfort rounds continue. Orders and/or nursing care completed as indicated. Patient monitored for response to intervention and treatment(s). Education provided includes trach care. Patient and/or registration representative reinforcement needed. Will continue to monitor.
--- NOTE | 2021-04-17 06:16 | PC.NURSE ---
Patients catheter became clogged and patient was leaking urine around apodaca. Removed apodaca and reinserted a new 16F [place] using sterile technique. Continue care.
[2021-04-17 07:19] LABS: Basophils % 0.4 %; Eosinophils # 0.5 10^3/uL (0.0-0.8); Eosinophils % 5.3 %; Hemoglobin 10.1 g/dL (11.7-16.6); Lymphocytes # 0.6 10^3/uL (0.8-4.8); Lymphocytes % 6.6 %; Mean Corpuscular HGB Conc 31.6 g/dL (30.0-36.0); Mean Corpuscular Hemoglobin 33.9 pg (28.0-34.0); Mean Corpuscular Volume 107.4 fl (80-94); Mean Platelet Volume 10.6 fL (7.4-10.4); Monocytes # 0.4 10^3/uL (0.2-0.9); Monocytes % 3.8 %; Neutrophils # 7.86 10^3/uL (1.8-7.7); Neutrophils % 83.3 %; Nucleated Red Blood Cells % 0 %; Platelet Count 202 10^3/cmm (130-400); Red Blood Count 2.98 10^6/uL (4.1-5.3); Red Cell Distribution Width 12.8 % (12.1-15.1); White Blood Count 9.4 10^3/uL (4.0-10.0)
--- NOTE | 2021-04-17 07:26 | P.PN_ITS ---
Documented by User: DIONE Cottrell 04/17/21 08:30 Subjective Subjective: Interval history: Christopher is sedated. Will open eyes and follow instructions. Medications: Reviewed: Yes Vitals/I&O/Wt Last Vital Signs Temp 100.5 F H 04/17/21 03:00 Pulse 107 H 04/17/21 06:00 Resp 37 H 04/17/21 05:47 BP 132/90 04/17/21 06:00 Pulse Ox 94 04/17/21 06:00 04/16/21 04/17/21 04/17/21 22:59 06:59 14:59 Intake Total 1131.342 / 1853.342 504 / 2357.342 Output Total 575 / 575 350 / 925 Balance 556.342 / 1278.342 154 / 1432.342 Weight last 48 hrs Weight 86.353 kg Physical Exam Narrative: EXAM NARRATIVE: Gen: Sedated, no acute distress. Neck is supple, no lymphadenopathy or JVD. Tracheostomy noted. Cardiovascular RRR without murmur. Lungs: course breath sounds B/L Abdomen: soft, non tender with positive bowel sounds. PEG tube noted. Ext: no clubbing or cyanosis. L arm has edema Urinary Catheter Management^: Mullen: Cath Placed During This Visit: yes, but has since been removed by the nurse Reason for Continuing Indwelling Catheter: Accurate Measurement of Urinary Output in Critically Ill Patients Urinary Catheter Date of Insertion: 04/17/21 Urinary Catheter Time of Insertion: 02:54 Date Urinary Catheter Removed: 04/17/21 Time Urinary Catheter Discontinued: 02:53 Data : 04/17/21 07:10 04/16/21 03:33 Micro: Microbiology 04/14/21 16:20 Gram Stain - Final Sputum - Endotracheal Tube Aspirate Sputum Culture - Preliminary 04/13/21 15:45 Urine Culture - Final Urine,Voided Yeast A&P Additional A&P Information Hypoxemia: Hypoxic with ARDS secondary to severe COVID-19. FiO2 requirement still 60%. Currently receiving Precedex and fentanyl for sedation. Fentanyl was weaned yesterday, reportedly got tachycardic and fentanyl was resumed. Continue to try and wean. Use as needed. Continue to try to wean FiO2 as tolerated. PICC line placed and confirmed by CXR 04/16/21. Central line was removed. Continues to spike fevers. Continue cefepime, vancomycin. Feedings at 30ml/hr up to 40ml/hr Urinary catheter was replaced. Urine culture growing yeast. Sputum culture previously showed yeast. Replaced fluconazole with Caspofungin. Noted thrombophlebitis with thrombus within cephalic vein of left forearm. Plan for OT and PT consult for weakness. Overall plan is placement to long-term care. He has completed his course of remdesivir, and dexamethasone Tracheostomy performed late April 11 PEG tube was placed 04/13. Arrangements also underway for placement to long-term care. Attestations Medical Necessity Statement*: Needs continued hospital stay secondary to COVID-19 pneumonia requiring mechanical ventilation. 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 Patient seen by me as well. Medications: Reviewed: Yes Physical Exam Narrative: EXAM NARRATIVE: Agree with above. PICC line now present right upper extremity and central line has been removed. Urinary Catheter Management^: Mullen: Cath Placed During This Visit: no Data : 04/17/21 07:10 04/16/21 03:33 Other data: CMP pending. Urine culture done April 13 demonstrated yeast. Sputum culture normal maynor. Blood culture negative to date. A&P Assessment and plan (1) Hypoxemia: Status: Acute (2) COVID-19: Status: Acute (3) Ischemic cardiomyopathy: Status: Acute (4) Acute kidney injury: Status: Acute (5) Hyponatremia: Status: Acute (6) Atherosclerosis of coronary artery of [place] heart without angina pectoris: Status: Acute Qualifiers: Coronary Disease-Associated Artery/Lesion type: unspecified vessel or lesion type Qualified Code(s): I25.10 - Atherosclerotic heart disease of [place] coronary artery without angina pectoris (7) Dyslipidemia: Status: Acute (8) Benign essential HTN: Status: Acute (9) Neck mass: Status: Acute (10) Fever: Status: Acute Additional A&P Information Agree with notations above. 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 Secondary to his recurrent fevers cefepime and vancomycin were initiated last week, on April 13. Blood cultures remain negative. Caspofungin initiated yesterday secondary to 2 different areas with yeast growing. Continue to try to wean FiO2 as tolerated Overall plan is long-term care placement Add fentanyl 25 mcg patch to facilitate weaning from fentanyl IV as tachycardia and hypertension noted yesterday may have been secondary to withdrawal. Full code. Lovenox for DVT prophylaxis Attestations Medical Necessity Statement*: Needs continued hospitalization secondary to severe COVID-19 pneumonia requiring mechanical ventilation. Critical Care Time: The high probability of a clinically significant, sudden or life threatening deterioration of the patient's [pulmonary, infectious disease] system(s) required my full and direct attention, intervention and personal management. The critical care time is as shown. 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
[2021-04-17 07:52] LABS: Vancomycin Trough 24.3 ug/mL (10-15)
[2021-04-17] MEDS: enoxaparin 40 mg/0.4 mL Syringe SUBCUT (08:12)
[2021-04-17] MEDS: guaiFENesin 600 mg Tablet 1200 MG PO ×2 (08:12→16:56)
[2021-04-17] MEDS: ferrous gluconate 324 mg Tablet PO ×2 (08:13→16:56)
[2021-04-17] MEDS: multivitamin therapeutic Tablet 1 TAB PO (08:13)
[2021-04-17] MEDS: aspirin 81 mg EC Tablet PO (08:13)
[2021-04-17] MEDS: folic acid 1 mg Tablet PO (08:13)
[2021-04-17] MEDS: metoprolol succinate ER (24 HR) 25 mg Tablet PO (08:13)
[2021-04-17] MEDS: isosorbide mononitrate ER 30 mg Tablet PO (08:13)
[2021-04-17] MEDS: famotidine 20 mg Tablet PEG-TUBE ×2 (08:13→16:57)
[2021-04-17] MEDS: thiamine 100 mg Tablet PO (08:13)
[2021-04-17] MEDS: budesonide 0.5 mg/2 mL Neb INHALATION ×2 (08:19→20:11)
--- NOTE | 2021-04-17 08:40 | PC.CHAP ---
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 combat information center officer visit [] Patient/Family/Request visit [] Outpatient visit [] Follow-up visit [] Physician referral [] Code/Alert [x] Routine visit [] Staff referral [] Actively dying [] Patient sleeping [] Family support [] [] Out of room [] Palliative care [] [] Receiving care in room [] Pre-surgical visit [] Trauma [] Long length of stay [x] ICU visit [] Other: Relational/Emotional Strength [] Patient feels connected with others/family/visitors/staff [] Distress [] Loneliness/isolation [] Abandonment Spirituality of Patient [] Person of Dacia [] Attends Sabianism of their [place] [] Believes in Prayer [] Reads Bible or Orthodox materials [] There are Spiritual issues to be addressed Third Mate Interventions [x] Prayer [] Active listening [] Non-anxious presence [] Spiritual/emotional support [] Crisis/trauma care [] Spiritual counseling [] Bereavement support [] Provided bereavement packet [] Provided Bible/devotional materials [] Provided toy/stuffed animal, coloring book to patient or family member [] Provided Communion [] Anointing/[place] [] Salvation [x] Completed spiritual assessment [] Other: Impact on Illness or Injury [] Angry [] Fearful [] Anxious [] Often cries [] Exhaustion [] Unable to work [] Unable to attend islam [] Unable to walk/stand [] Unable to read [] Unable to drive [] Unable to eat/drink [] Unable to sleep [] Unable to be with family [] Patient intubated [] Other: Summary Time spent with patient
[2021-04-17 09:13] LABS: Alanine Aminotransferase 125 U/L (0-41); Albumin Level 2.1 g/dL (3.5-5.2); Alkaline Phosphatase 158 IU/L (40-130); Blood Urea Nitrogen 21 mg/dL (8-23); Calcium 8.4 mg/dL (8.5-10.5); Carbon Dioxide 21 mmol/L (22-29); Chloride 105 mmol/L (98-107); Globulin 4.6 g/dL (1.3-4.6); Glomerular Filtration Rate 114.6 mL/min (90-130); Glucose 108 mg/dL (65-115); Osmolality Calculated 286 mOsm/kg (285-295); Sodium 136 mmol/L (136-145); Total Bilirubin 1.3 mg/dL (0.15-1.2); Total Protein 6.7 g/dL (6.6-8.7)
[2021-04-17 09:26] LABS: Anion Gap 13.9 (5-19); Aspartate Amino Transferase 168 U/L (0-40); Potassium 3.9 mmol/L (3.5-5.1)
[2021-04-17] MEDS: nystatin powder 15 gm Btl 1 APPLIC TOPICAL (09:34)
[2021-04-17] MEDS: fentaNYL 25 mcg Patch 1 PATCH TRANSDERMA (09:36)
--- NOTE | 2021-04-17 09:59 | PC.NURSE ---
Pt up on side of bed with therapy this AM. tolerated fair. Fentanyl patch placed per orders. TF tolerated well, minimal residual noted. TF increased to 40ml/h per MD order. Gtts infusing per orders to MIREYA DL PICC. Mullen cath draining freely to BSD. Trach in place, trach care per RT. Oral care performed and repositioned q2h and PRN. VSS. Will monitor.
--- NOTE | 2021-04-17 11:42 | PC.NUTR ---
Tube feeding recommendations: Dietitian consult requested over the weekend per chart review, but no consult noted per MD orders. However, pt assessed by RD with PEG recommendations made on 04/13. Noted feedings currently at 40 ml/hr, tolerating well per nurse, with plan to increase to 50 ml/hr today. Suggest modifying goal rate and gradually increasing to 70 ml/hr, and decreasing flushes to 100 ml q4, to provide 2016 kcal, 92 g protein, 1956 ml H2O. See full RD assessment for further details.
[2021-04-17] MEDS: LORazepam 2 mg/mL INJ 1 mL 1 MG IVP ×2 (13:01→21:41)
[2021-04-17] MEDS: vancomycin 1,000 MG in sodium chloride 0.9% 250 ML 250 MG IV (15:44)
[2021-04-17] MEDS: sennosides 8.6 mg Tablet 17.2 MG PO (16:56)
--- NOTE | 2021-04-17 17:36 | PC.NURSE ---
Shift Note Frequent safety and comfort rounds continue. Orders and/or nursing care completed as indicated. Patient monitored for response to intervention and treatment(s). Education provided includes treatment plan, physical and occupational therapy, and medication adjustments. verbalizes understanding. VSS. No residuals noted with peg tube feedings, feedings increased to 50nl/h per orders. Stool softener/ laxative given as ordered. Will continue to monitor.
[2021-04-17] MEDS: quetiapine 25 mg Tablet PO (20:45)
[2021-04-18] VITALS (62 sets, daily range): BP systolic 78–162; BP diastolic 50–102; PULSE 87–127; RESP 24–38; TEMP 37.3–38.5; O2SAT 85–100
[2021-04-18] MEDS: fentaNYL 50 mcg/mL INJ 2mL 25 MCG IVP ×2 (03:05→15:41)
[2021-04-18] MEDS: vancomycin 1,000 MG in sodium chloride 0.9% 250 ML 250 MG IV ×2 (03:18→16:13)
[2021-04-18] MEDS: ipratropium-albuterol 3 mL Neb INHALATION ×6 (03:32→23:14)
[2021-04-18] MEDS: cefepime 2,000 MG in sodium chloride 0.9% (plus) 50 ML 100 MG IV ×2 (04:20→17:29)
[2021-04-18] MEDS: dexmedetomidine 400 MCG in sodium chloride 0.9% (100 ml) 100 ML 15.03 MCG IV (05:07)
--- NOTE | 2021-04-18 05:11 | PC.NURSE ---
Shift Note Frequent safety and comfort rounds continue. Orders and/or nursing care completed as indicated. Patient monitored for response to intervention and treatment(s). Education provided includes peg tube feedings. ROM exercises. Patient and/or claim service representative. Reinforcement needed. Will continue to monitor.
[2021-04-18 05:48] LABS: Basophils % 0.2 %; Eosinophils # 0.5 10^3/uL (0.0-0.8); Eosinophils % 6.3 %; Hematocrit 29.1 % (42.0-52.0); Hemoglobin 9.2 g/dL (11.7-16.6); Lymphocytes # 0.8 10^3/uL (0.8-4.8); Lymphocytes % 9.5 %; Mean Corpuscular HGB Conc 31.6 g/dL (30.0-36.0); Mean Corpuscular Hemoglobin 33.8 pg (28.0-34.0); Mean Platelet Volume 11.3 fL (7.4-10.4); Monocytes # 0.3 10^3/uL (0.2-0.9); Monocytes % 3.4 %; Neutrophils # 6.63 10^3/uL (1.8-7.7); Neutrophils % 79.9 %; Nucleated Red Blood Cells % 0 %; Platelet Count 187 10^3/cmm (130-400); Red Blood Count 2.72 10^6/uL (4.1-5.3); Red Cell Distribution Width 12.8 % (12.1-15.1); White Blood Count 8.3 10^3/uL (4.0-10.0)
[2021-04-18 06:04] LABS: Alanine Aminotransferase 92 U/L (0-41); Albumin Level 1.8 g/dL (3.5-5.2); Alkaline Phosphatase 137 IU/L (40-130); Blood Urea Nitrogen 17 mg/dL (8-23); Calcium 8.4 mg/dL (8.5-10.5); Carbon Dioxide 21 mmol/L (22-29); Chloride 107 mmol/L (98-107); Globulin 4.3 g/dL (1.3-4.6); Glomerular Filtration Rate 114.6 mL/min (90-130); Glucose 123 mg/dL (65-115); Osmolality Calculated 287 mOsm/kg (285-295); Sodium 137 mmol/L (136-145); Total Bilirubin 0.9 mg/dL (0.15-1.2); Total Protein 6.1 g/dL (6.6-8.7)
[2021-04-18 06:06] LABS: Anion Gap 12.7 (5-19); Aspartate Amino Transferase 105 U/L (0-40); Potassium 3.7 mmol/L (3.5-5.1)
[2021-04-18 06:21] LABS: Slide Review Slide Review Perform
[2021-04-18] MEDS: enoxaparin 40 mg/0.4 mL Syringe SUBCUT (07:48)
[2021-04-18] MEDS: ferrous gluconate 324 mg Tablet PO ×2 (07:48→17:15)
--- NOTE | 2021-04-18 08:19 | P.PN_ITS ---
Documented by User: DIONE Cottrell [email or web address] 04/18/21 10:47 Subjective Subjective: Interval history: Sedated but awakens when spoken to and follows instructions. Temp 99.2. FiO2 55% weaning down. Medications: Reviewed: Yes Vitals/I&O/Wt Last Vital Signs Temp 99.5 F 04/18/21 04:00 Pulse 87 04/18/21 06:00 Resp 31 H 04/18/21 06:03 BP 119/72 04/18/21 06:00 Pulse Ox 90 04/18/21 06:03 04/17/21 04/18/21 04/18/21 22:59 06:59 14:59 Intake Total 1269.95 / 0725.937 3964.313 / 3117.730 Output Total 650 / 650 500 / 1150 Balance 619.95 / 1017.417 950.313 / 1967.730 Weight last 48 hrs Weight 89.443 kg Physical Exam Narrative: EXAM NARRATIVE: Gen: no acute distress, sedated but opens eyes when spoken to. Neck is supple, no lymphadenopathy or JVD. Tracheostomy noted. Cardiovascular RRR without murmur. Lungs: course breath sounds B/L Abdomen: soft, non tender with positive bowel sounds. PEG tube present. Ext: no clubbing or cyanosis. L arm has edema. PICC line present in right upper ext. Urinary Catheter Management^: Mullen: Cath Placed During This Visit: yes, but has since been removed by the nurse Reason for Continuing Indwelling Catheter: Accurate Measurement of Urinary Output in Critically Ill Patients Urinary Catheter Date of Insertion: 04/17/21 Urinary Catheter Time of Insertion: 02:54 Date Urinary Catheter Removed: 04/17/21 Time Urinary Catheter Discontinued: 02:53 Data : 04/18/21 05:22 04/18/21 05:22 Micro: Microbiology 04/14/21 16:20 Gram Stain - Final Sputum - Endotracheal Tube Aspirate Sputum Culture - Final Other data: Sputum culture final: normal maynor 50ml/hr feedings 55% FiO2 weaning down. A&P Additional A&P Information Hypoxic with ARDS secondary to severe COVID-19. FiO2 requirement 55%. Currently receiving Precedex and fentanyl for sedation. Fentanyl patch started yesterday. Stop fentanyl drip. Use PRN as needed. Wean precedex. Continue to wean FiO2 as tolerated. Fever 99.2 this am. Stop cefepime tomorrow 04/19/21. Urine culture growing yeast. Latest sputum culture normal maynor. Continue Caspofungin. Continue OT and PT as tolerated for weakness. Overall plan is placement to long-term care. He has completed his course of remdesivir, and dexamethasone Tracheostomy performed late April 11 PEG tube was placed 04/13. PICC line placed and confirmed by CXR 04/16/21. Arrangements also underway for placement to long-term care. 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 I personally examined as well. Urinary Catheter Management^: Mullen: Cath Placed During This Visit: no Data : 04/18/21 05:22 04/18/21 05:22 A&P Assessment and plan (1) Hypoxemia: Status: Acute (2) COVID-19: Status: Acute (3) Ischemic cardiomyopathy: Status: Acute (4) Acute kidney injury: Status: Acute (5) Hyponatremia: Status: Acute (6) Atherosclerosis of coronary artery of [place] heart without angina pectoris: Status: Acute Qualifiers: Coronary Disease-Associated Artery/Lesion type: unspecified vessel or lesion type Qualified Code(s): I25.10 - Atherosclerotic heart disease of [place] coronary artery without angina pectoris (7) Dyslipidemia: Status: Acute (8) Benign essential HTN: Status: Acute (9) Neck mass: Status: Acute (10) Fever: Status: Acute Additional A&P Information Agree with notations above. 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 T-max 100.7 Secondary to his recurrent fevers cefepime and vancomycin were initiated last week, on April 13. Blood cultures remain negative. Discontinue these antibiotics tomorrow if no growth. Caspofungin initiated 04/16 secondary to 2 different areas with yeast growing. Fever curve has improved. Continue to try to wean FiO2 as tolerated Overall plan is long-term care placement Discontinue fentanyl drip. Can use fentanyl as needed. Wean Precedex every day, pressure support trial every day. Full code. Lovenox for DVT prophylaxis Attestations Medical Necessity Statement*: Needs continued hospital stay secondary to severe COVID-19 pneumonia requiring mechanical ventilation. Critical Care Time: The high probability of a clinically significant, sudden or life threatening deterioration of the patient's [pulmonary, infectious disease] system(s) required my full and direct attention, intervention and personal management. The critical care time is as shown. 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
[2021-04-18] MEDS: budesonide 0.5 mg/2 mL Neb INHALATION ×2 (08:26→20:06)
--- NOTE | 2021-04-18 08:53 | PC.CHAP ---
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 zipper slide attacher visit [] Patient/Family/Request visit [] Outpatient visit [] Follow-up visit [] Physician referral [] Code/Alert [x] Routine visit [] Staff referral [] Actively dying [] Patient sleeping [] Family support [] [] Out of room [] Palliative care [] [] Receiving care in room [] Pre-surgical visit [] Trauma [] Long length of stay [x] ICU visit [] Other: Relational/Emotional Strength [] Patient feels connected with others/family/visitors/staff [] Distress [] Loneliness/isolation [] Abandonment Spirituality of Patient [] Person of Dacia [] Attends Latter Day of their [place] [] Believes in Prayer [] Reads Bible or Hindu materials [] There are Spiritual issues to be addressed Separator Tender Interventions [x] Prayer [] Active listening [] Non-anxious presence [] Spiritual/emotional support [] Crisis/trauma care [] Spiritual counseling [] Bereavement support [] Provided bereavement packet [] Provided Bible/devotional materials [] Provided toy/stuffed animal, coloring book to patient or family member [] Provided Communion [] Anointing/[place] [] Salvation [x] Completed spiritual assessment [] Other: Impact on Illness or Injury [] Angry [] Fearful [] Anxious [] Often cries [] Exhaustion [] Unable to work [] Unable to attend protestant [] Unable to walk/stand [] Unable to read [] Unable to drive [] Unable to eat/drink [] Unable to sleep [] Unable to be with family [] Patient intubated [] Other: Summary Time spent with patient
[2021-04-18] MEDS: aspirin 81 mg EC Tablet PO (09:29)
[2021-04-18] MEDS: sennosides 8.6 mg Tablet 17.2 MG PO ×2 (09:29→17:16)
[2021-04-18] MEDS: famotidine 20 mg Tablet PEG-TUBE ×2 (09:29→17:19)
[2021-04-18] MEDS: metoprolol succinate ER (24 HR) 25 mg Tablet PO (09:29)
[2021-04-18] MEDS: multivitamin therapeutic Tablet 1 TAB PO (09:29)
[2021-04-18] MEDS: isosorbide mononitrate ER 30 mg Tablet PO (09:30)
[2021-04-18] MEDS: thiamine 100 mg Tablet PO (09:30)
[2021-04-18] MEDS: folic acid 1 mg Tablet PO (09:30)
[2021-04-18] MEDS: guaiFENesin 600 mg Tablet 1200 MG PO (09:30)
--- NOTE | 2021-04-18 10:02 | PC.NURSE ---
0700 recd resting quietly with tachypnea. follows commands
--- NOTE | 2021-04-18 10:03 | PC.NURSE ---
1000 smiled on entry to room. repositioned to far left. skin to backside in excellent condition.
--- NOTE | 2021-04-18 10:55 | PC.NURSE ---
fentanyl gtt off.
[2021-04-18] MEDS: dexmedetomidine 400 MCG in sodium chloride 0.9% (100 ml) 100 ML 12.89 MCG IV (13:01)
--- NOTE | 2021-04-18 13:56 | PC.NURSE ---
pt. attempting to communicate. nodded head yes to needing a fan. cons. to run low grade temp. aware of.
--- NOTE | 2021-04-18 14:08 | PC.NURSE ---
weaning precedex. resting quietly at this time remains tachypneic.
--- NOTE | 2021-04-18 14:57 | PC.NURSE ---
remains tachypneic. coughing.
--- NOTE | 2021-04-18 15:19 | PC.NURSE ---
wanted to write a note, but to weak to hold pencil. speech here earlier states board she found had to small letters on it.
[2021-04-18 16:06] LABS: Vancomycin Trough 18.1 ug/mL (10-15)
--- NOTE | 2021-04-18 16:19 | PC.NURSE ---
remains tachypneic, tachy-130s blood pressure re
--- NOTE | 2021-04-18 16:43 | PC.OT ---
OT NOTE: OT TREATMENT ATTEMPTED. PER NURSING; HOLD SECONDARY TO ELEVATED BP; HR: 128 RESTING; RESPIRATIONS: 36. WILL ATTEMPT AGAIN TOMORROW.
[2021-04-18] MEDS: LORazepam 2 mg/mL INJ 1 mL 1 MG IVP (16:46)
--- NOTE | 2021-04-18 16:53 | PC.NURSE ---
dr. rojas notified of continued elevated h.r., r.r. and blood pressure. ativan given
[2021-04-18] MEDS: guaiFENesin 600 mg Tablet PO (17:19)
[2021-04-18] MEDS: isosorbide dinitrate 20 mg Tablet 10 MG PO (17:30)
--- NOTE | 2021-04-18 17:43 | PC.NURSE ---
b/p and heart rate down. heart rate tachy.
[2021-04-18] MEDS: quetiapine 25 mg Tablet PO (20:29)
[2021-04-19] VITALS (115 sets, daily range): BP systolic 81–134; BP diastolic 52–85; PULSE 79–116; RESP 23–40; TEMP 36.8–37.7; O2SAT 86–100
[2021-04-19] MEDS: dexmedetomidine 400 MCG in sodium chloride 0.9% (100 ml) 100 ML IV (01:22)
[2021-04-19] MEDS: ipratropium-albuterol 3 mL Neb INHALATION ×6 (03:14→23:51)
[2021-04-19] MEDS: vancomycin 1,000 MG in sodium chloride 0.9% 250 ML 250 MG IV ×2 (03:18→16:17)
[2021-04-19] MEDS: cefepime 2,000 MG in sodium chloride 0.9% (plus) 50 ML 100 MG IV (04:20)
--- NOTE | 2021-04-19 05:18 | PC.NURSE ---
Shift Note Frequent safety and comfort rounds continue. Orders and/or nursing care completed as indicated. Patient monitored for response to intervention and treatment(s). Education provided includes position changes, trach and oral care, fevers, medications with side effects. Patient unable to speak on ventilator but will node his head he understands education. GTT's titrate per protocol. Mullen patent and draining. Strong cough reflex with cream thick secretions, tolerating tube feeds, increased movement in upper extremities with slight movement of legs but no movement of feet with foot drop noted. Will continue to monitor.
[2021-04-19] MEDS: fentaNYL 50 mcg/mL INJ 2mL 25 MCG IVP ×3 (06:48→19:42)
--- NOTE | 2021-04-19 07:29 | P.PN_ITS ---
Documented by User: DIONE Cottrell STDALIYAH 04/19/21 11:29 Subjective Subjective: Interval history: Christopher awakens with stimulation and follows some directions. Appears in mild distress nods yes when asked if in pain. Medications: Reviewed: Yes Vitals/I&O/Wt Last Vital Signs Temp 99.9 F H 04/19/21 04:00 Pulse 113 H 04/19/21 06:30 Resp 37 H 04/19/21 06:48 BP 121/84 04/19/21 06:30 Pulse Ox 91 04/19/21 06:48 04/18/21 04/19/21 04/19/21 22:59 06:59 14:59 Intake Total 2263.085 / 2634.553 306.475 / 2941.028 Output Total 575 / 575 1050 / 1625 Balance 1688.085 / 2059.553 -743.525 / 1316.028 Weight last 48 hrs Weight 90.991 kg Weight 89.443 kg Physical Exam Narrative: EXAM NARRATIVE: Gen: Appears in mild distress. Neck is supple, no lymphadenopathy or JVD. Tracheostomy noted. Cardiovascular RRR without murmur. Lungs: course breath sounds B/L Abdomen: soft, non tender with positive bowel sounds. PEG tube present. Ext: no clubbing or cyanosis. L arm has edema. PICC line present in right upper ext. Urinary Catheter Management^: Mullen: Cath Placed During This Visit: yes, but has since been removed by the nurse Reason for Continuing Indwelling Catheter: Accurate Measurement of Urinary Output in Critically Ill Patients Urinary Catheter Date of Insertion: 04/17/21 Urinary Catheter Time of Insertion: 02:54 Date Urinary Catheter Removed: 04/17/21 Time Urinary Catheter Discontinued: 02:53 Data : 04/18/21 05:22 04/18/21 05:22 Micro: Microbiology 04/13/21 15:44 Blood Culture - Final Blood NO GROWTH AFTER 5 DAYS 04/13/21 15:41 Blood Culture - Final Blood NO GROWTH AFTER 5 DAYS A&P Additional A&P Information Recurrent Fevers He continues to spike fevers, T-max 101.3. Continue caspofungin and add primaxin. Blood culture shows no growth after 5 days, discontinue cefepime and vancomycin today. Sputum culture normal maynor. COVID-19 pneumonia with Respiratory failure FiO2 70% PEEP 10. Continue to try and wean FiO2 as tolerated. Use fentanyl as needed. Wean precedex each day. Daily pressure support trials. Continue feedings at 50ml/hr Continue OT and PT as tolerated for weakness. Overall plan is placement to long-term care. Full code. Lovenox for DVT prophylaxis Attestations Medical Necessity Statement*: Needs continued hospital stay secondary to severe COVID-19 pneumonia requiring mechanical ventilation. 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 Patient seen individually by myself as well. Discussed with respiratory therapy. No evidence of tube feeds in tracheostomy or around it. Medications: Reviewed: Yes Physical Exam Narrative: EXAM NARRATIVE: Agree with above. I personally examined as well. Urinary Catheter Management^: Mullen: Cath Placed During This Visit: no Data : 04/18/21 05:22 04/18/21 05:22 A&P Assessment and plan (1) Hypoxemia: Status: Acute (2) COVID-19: Status: Acute (3) Ischemic cardiomyopathy: Status: Acute (4) Acute kidney injury: Status: Acute (5) Hyponatremia: Status: Acute (6) Atherosclerosis of coronary artery of [place] heart without angina pectoris: Status: Acute Qualifiers: Coronary Disease-Associated Artery/Lesion type: unspecified vessel or lesion type Qualified Code(s): I25.10 - Atherosclerotic heart disease of [place] coronary artery without angina pectoris (7) Dyslipidemia: Status: Acute (8) Benign essential HTN: Status: Acute (9) Neck mass: Status: Acute (10) Fever: Status: Acute Additional A&P Information Agree with notations above. 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 T-max 101.3 Secondary to his recurrent fevers cefepime and vancomycin were initiated last week, on April 13. Blood cultures remain negative. Discontinue cefepime and initiate Primaxin. Are expanding coverage secondary to persistent fever. Continue caspofungin which was initiated April 16 Continue to try to wean FiO2 as tolerated. FiO2 requirement has gone up in the last 24 hours and will give 20 mg of Lasix IV. Overall plan is long-term care placement Precedex as needed. Ativan as needed. Fentanyl patch for pain, with IV as needed breakthrough Check chest x-ray tomorrow. Full code. Lovenox for DVT prophylaxis Attestations Medical Necessity Statement*: Needs continued hospital stay secondary to severe COVID-19 pneumonia requiring mechanical ventilation Critical Care Time: Critical Care Time (min): 35 Other Attestations: The high probability of a clinically significant, sudden or life threatening deterioration of the patient's [pulmonary, infectious disease.] system(s) required my full and direct attention, intervention and personal management. The critical care time is as shown. 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
--- NOTE | 2021-04-19 07:38 | XR_ITS ---
WS: [id number] Portable AP semiupright chest, 04/19/2021 Clinical Data: resp failure Comparison: Portable chest, 04/16/2021. Findings: Tracheal tube remains above the can and the right PICC line is in position. The left int ernal jugular venous catheter has been removed. The patchy bilateral pulmonary opacities remain the s [place]. The heart is enlarged. Monitor leads are on the chest wall. XR/XR chest 1V portable [id number] Impression: 1. No change in tracheal tube and right PICC line. 2. No change in bilateral pulmonary opacities consistent with pneumonia.
[2021-04-19] MEDS: budesonide 0.5 mg/2 mL Neb INHALATION ×2 (07:48→20:16)
[2021-04-19] MEDS: ferrous gluconate 324 mg Tablet PO ×2 (07:52→17:49)
[2021-04-19] MEDS: LORazepam 2 mg/mL INJ 1 mL 1 MG IVP ×2 (07:52→22:08)
[2021-04-19] MEDS: FUROsemide 10 mg/mL SDV 2mL 20 MG IVP (08:06)
--- NOTE | 2021-04-19 08:47 | PC.NURSE ---
Upon performing oral care, this nurse noted receding gum line and loose front bottom teeth.
--- NOTE | 2021-04-19 09:57 | PC.NURSE ---
Patient is outside of isolation precaution window. Provider verbally instructed door can be opened and isolation discontinued.
--- NOTE | 2021-04-19 10:10 | PC.NURSE ---
Pt pain assessment was charted wrong in Oct as a 0. This was charted wrong, Pt was breathing over vent and HR was 115. Additional medication was given and repositioned.
[2021-04-19] MEDS: aspirin 81 mg EC Tablet PO (10:31)
[2021-04-19] MEDS: guaiFENesin 600 mg Tablet PO ×2 (10:31→17:49)
[2021-04-19] MEDS: sennosides 8.6 mg Tablet 17.2 MG PO ×2 (10:31→17:49)
[2021-04-19] MEDS: thiamine 100 mg Tablet PO (10:32)
[2021-04-19] MEDS: metoprolol succinate ER (24 HR) 25 mg Tablet PO (10:32)
[2021-04-19] MEDS: multivitamin therapeutic Tablet 1 TAB PO (10:32)
[2021-04-19] MEDS: folic acid 1 mg Tablet PO (10:32)
[2021-04-19] MEDS: famotidine 20 mg Tablet PEG-TUBE ×2 (10:32→17:49)
[2021-04-19] MEDS: isosorbide dinitrate 20 mg Tablet 10 MG PO (10:37)
[2021-04-19] MEDS: enoxaparin 40 mg/0.4 mL Syringe SUBCUT (10:37)
--- NOTE | 2021-04-19 15:27 | PC.RESP ---
RT Shift Note Frequent safety and respiratory rounds continue. Orders completed as indicated. Patient monitored pre and post treatments throughout shift. Patient [Did.] tolerate treatments appropriately. Condition [.DidNotChange]. Patient and/or circulation representative educated on respiratory treatment and medications. Patient and/or circulation representative unable to comprehend]. Will continue to monitor patient progress.
--- NOTE | 2021-04-19 15:36 | ECG_ITS ---
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 Measurements Intervals Strawn Rate: 101 P: 32 VT: 142 QRS: -40 QRSD: 122 T: 218 QT: 407 QTc: 528 Interpretive Statements SINUS TACHYCARDIA WITH OCCASIONAL VENTRICULAR PREMATURE COMPLEXES INFERIOR MYOCARDIAL INFARCTION , OF INDETERMINATE AGE [40+ ms Q WAVE AND/OR ST/T ABNORMALITY IN II/aVF] MARKED T-WAVE ABNORMALITY, CONSIDER ANTEROLATERAL ISCHEMIA [-0.5+ mV T-WAVE IN I/aVL/V3-V6] Compared to ECG 03/27/2021 18:25:31 Ventricular premature complex(es) now present T-wave abnormality now present Possible ischemia now present Sinus rhythm no longer present Myocardial infarct finding still present Electronically Signed On 04-20-2021 9:03:40 CDT by Mariajose Beltre M.D. [id number]
--- NOTE | 2021-04-19 16:27 | PC.NUTR ---
Tube feeding follow up: Jevity 1.2 @ 50 ml/hr appropriate at this time, providing approx 65% kcal needs and 96% protein needs. Recommend monitor tolerance and weight. If not to be extubated within 1-3 days, may benefit from gradual increase to 70 ml/hr, and decreasing H2O flushes to 100 ml q4, to provide 2016 kcal, 92 g protein, 1956 ml H2O. See full RD assessment for further details.
[2021-04-19 17:29] LABS: Troponin(5th) Baseline 109 ng/L (0-15)
--- NOTE | 2021-04-19 17:32 | PC.NURSE ---
Dr. Alberto notified of patient troponin 109 @[address] Alberto did not have orders at this time. Awaiting results of second troponin in two hours.
[2021-04-19] MEDS: dexmedeTOMIDine 0.9 % NaCL 400 MCG/100 ML PREMIX 15.92 MCG IV (17:54)
[2021-04-19 18:41] LABS: Troponin 5 2HR 108.5 ng/L (0-15); Troponin 5 2HR Delta -0.5 ABS# (0-10)
--- NOTE | 2021-04-19 18:58 | PC.NURSE ---
Shift Note Frequent safety and comfort rounds continue. Orders and/or nursing care completed as indicated. Patient monitored for response to intervention and treatment(s). Education provided includes,current condition and plan of care discussed with Patito, . Verbalized understanding. Abnormal T wave noted approximately 1730. ECG ordered and performed. noted T wave abnormality and ordered Troponin. First troponin resulted 109 and second resulted 108. Ultrasound ordered for 0600.
[2021-04-19] MEDS: quetiapine 25 mg Tablet PO (19:41)
[2021-04-19 23:13] LABS: Troponin 5 6HR 104.7 ng/L (0-15); Troponin 5 6HR Delta -4.3 ng/L (0-12)
[2021-04-20] VITALS (84 sets, daily range): BP systolic 84–132; BP diastolic 57–83; PULSE 92–125; RESP 27–44; TEMP 36.9–37.4; O2SAT 88–98
[2021-04-20] MEDS: dexmedeTOMIDine 0.9 % NaCL 400 MCG/100 ML PREMIX 22.75 MCG IV ×2 (01:22→05:38)
[2021-04-20] MEDS: ipratropium-albuterol 3 mL Neb INHALATION ×6 (04:09→23:32)
[2021-04-20] MEDS: vancomycin 1,000 MG in sodium chloride 0.9% 250 ML 250 MG IV ×2 (04:09→16:47)
--- NOTE | 2021-04-20 04:46 | PC.NURSE ---
Shift Note Frequent safety and comfort rounds continue. Orders and/or nursing care completed as indicated. Patient monitored for response to intervention and treatment(s). Education provided includes suctioning, positioning and turns, medications with side effects, oral care. Patient able to respond with head movements stating he understands education provided. ROM provided, patient seems to have a decrease in upper extremity and lower extremity strength which maybe due to the need to increase amount of sedation to tolerate ventilator and oxygenate. GTT's titrated per protocol, precedex is the only titratable gtt at this time. PRN medication given to help with pain and anxiety. Patient will open eyes to command but does not follow any other commands as he did on previous rug scratcher. Patient tolerating tube feedings. Tube feeding system changed per protocol. Oral care provided Q2hr with repositioning. Mullen patent and draining. Will continue to monitor.
--- NOTE | 2021-04-20 06:00 | USCV_ITS ---
Christopher Reinoso Age: 60 Gender: M : 1960 Exam Date: 04/20/2021 05:52 Ordering Phys: Jon Alberto MD Technologist: PIPO Exam Location: [facility] [place] Indication: BP: 84 / 57 HR: 102 Rhythm: Other Technical Quality: Adequate MEASUREMENTS (Male / Female) Normal Values 2D ECHO LV Diastolic Diameter PLAX 4.9 cm 4.2 - 5.9 / 3.9 - 5.3 cm LV Systolic Diameter PLAX 4.0 cm LV Chamber Size 3.0 cm IVS Diastolic Thickness 1.6 cm 0.6 - 1.0 / 0.6 - 0.9 cm IVS Systolic Thickness 1.7 cm LVPW Diastolic Thickness 1.5 cm 0.6 - 1.0 / 0.6 - 0.9 cm LVPW Systolic Thickness 1.7 cm RV Chamber Size 3.9 cm LVOT Diameter 2.1 cm LV Ejection Fraction 2D Teich 39.2 % LV Ejection Fraction MOD 2C 69.1 % LV Ejection Fraction 2C AL 69.2 % LA Diameter 4.5 cm LA Width 3.1 cm LA Height 4.0 cm RA Width 4.4 cm RA Height 5.3 cm Aorta at Sinotubular Diameter 3.7 cm M-MODE LV Diastolic Diameter MM 5.6 cm 4.2 - 5.9 / 3.9 - 5.3 cm LV Systolic Diameter MM 4.8 cm LV Ejection Fraction MM Teich 32.8 % IVS Diastolic Thickness MM 1.4 cm 0.6 - 1.0 / 0.6 - 0.9 cm IVS Systolic Thickness MM 1.3 cm LVPW Diastolic Thickness MM 1.4 cm 0.6 - 1.0 / 0.6 - 0.9 cm LVPW Systolic Thickness MM 2.2 cm Aortic Annulus Diameter 4.2 cm LA Ao Ratio MM 1.1 MV E Point Septal Separation 1.0 cm DOPPLER AV Peak Velocity 168.0 cm/s LVOT Peak Velocity 69.0 cm/s AV Area Cont Eq vti 1.9 cm squared AV Area Cont Eq pk 1.4 cm squared MV Area PHT 5.0 cm squared Mitral E to A Ratio 0.8 MV E' Velocity 29.0 cm/s Mitral E to MV E' Ratio 6.2 Mitral E to LV E' Lateral Ratio 6.0 Mitral E to LV E' Septal Ratio 6.5 TR Peak Velocity 237.7 cm/s TR Peak Gradient 22.6 mmHg TR Mean Velocity 177.2 cm/s TR Mean Gradient 15.0 mmHg TR Velocity Time Integral 65.7 cm TV Peak E Velocity 80.0 cm/s Right Atrial Pressure 15.0 mmHg Pulmonary Artery Systolic Pressu 37.6 mmHg PV Peak Velocity 48.0 cm/s RV Acceleration Time 0.2 s RV Ejection Time 0.4 s RV AcT/ET 0.4 FINDINGS Left Ventricle Left ventricle cavity is not well visualized. Possible low normal left ventricle ejection fraction. Estimated ejection fraction around 50%., Due to suboptimal image quality wall motion abnormality cannot be assessed accurately so does ejection fraction. Right Ventricle The right ventricle is normal in size and function. Right Atrium The right atrium is normal in size. Left Atrium The left atrium is normal in size. Mitral Valve Severely thickened mitral valve. Moderate mitral annular calcification. No mitral valve stenosis. Due to suboptimal image quality mitral valve cannot be assessed accurately Aortic Valve Moderate aortic valve calcification. Mild aortic valve stenosis, mean gradient 6.1 mmHg, GEENA 1.9 cm squared. Mild aortic valve regurgitation. Tricuspid Valve Mild tricuspid valve regurgitation. Pulmonic Valve Pulmonic valve not well visualized. Pericardium Normal pericardium without effusion. Aorta Normal ascending aorta dimension. CONCLUSIONS 1-Left ventricle cavity is not well visualized. Possible low normal left ventricle ejection fraction. Estimated ejection fraction around 50%., Due to suboptimal image quality wall motion abnormality cannot be assessed accurately so does ejection fraction. 2-Moderate aortic valve calcification. Mild aortic valve stenosis, mean gradient 6.1 mmHg, GEENA 1.9 cm squared. Mild aortic valve regurgitation. 3-Severely thickened mitral valve. Moderate mitral annular calcification. No mitral valve stenosis. Due to suboptimal image quality mitral valve cannot be assessed accurately. 4-There is no pericardial effusion. 5-Pulmonary artery systolic pressure is within normal limits. 6-It appeared to me that patient left ventricle ejection fraction when compared to the prior echocardiogram dated December 23, 2020 is slightly better, it was mentioned to be severely reduced but when compared to the prior echo I think due to suboptimal quality it may have been underestimated however during this exam it is around low normal 50%. There also appeared to be mild aortic stenosis. Chantel Ray MD (Electronically Signed) Final Date: 20 April 2021 15:09 S
[2021-04-20 06:48] LABS: Basophils % 0.2 %; Eosinophils # 0.9 10^3/uL (0.0-0.8); Eosinophils % 9.2 %; Hematocrit 27.8 % (42.0-52.0); Hemoglobin 8.8 g/dL (11.7-16.6); Lymphocytes # 0.8 10^3/uL (0.8-4.8); Lymphocytes % 8.3 %; Mean Corpuscular HGB Conc 31.7 g/dL (30.0-36.0); Mean Corpuscular Hemoglobin 34.6 pg (28.0-34.0); Mean Corpuscular Volume 109.4 fl (80-94); Mean Platelet Volume 11.1 fL (7.4-10.4); Monocytes # 0.3 10^3/uL (0.2-0.9); Monocytes % 3.6 %; Neutrophils # 7.39 10^3/uL (1.8-7.7); Neutrophils % 77.5 %; Nucleated Red Blood Cells % 0 %; Platelet Count 249 10^3/cmm (130-400); Red Blood Count 2.54 10^6/uL (4.1-5.3); White Blood Count 9.5 10^3/uL (4.0-10.0)
[2021-04-20 07:17] LABS: Alanine Aminotransferase 64 U/L (0-41); Albumin Level 1.9 g/dL (3.5-5.2); Alkaline Phosphatase 135 IU/L (40-130); Blood Urea Nitrogen 25 mg/dL (8-23); Calcium 8.3 mg/dL (8.5-10.5); Carbon Dioxide 23 mmol/L (22-29); Chloride 105 mmol/L (98-107); Globulin 4.6 g/dL (1.3-4.6); Glomerular Filtration Rate 85.8 mL/min (90-130); Glucose 124 mg/dL (65-115); Osmolality Calculated 290 mOsm/kg (285-295); Sodium 137 mmol/L (136-145); Total Bilirubin 0.5 mg/dL (0.15-1.2); Total Protein 6.5 g/dL (6.6-8.7)
[2021-04-20 07:19] LABS: Anion Gap 13.6 (5-19); Aspartate Amino Transferase 70 U/L (0-40); Potassium 4.6 mmol/L (3.5-5.1)
[2021-04-20 07:24] LABS: Procalcitonin 0.44 ng/mL (0-0.5)
[2021-04-20 08:04] LABS: Slide Review Slide Review Perform
[2021-04-20] MEDS: budesonide 0.5 mg/2 mL Neb INHALATION ×2 (08:35→20:34)
--- NOTE | 2021-04-20 09:02 | US_ITS ---
WS: [id number] RIGHT UPPER QUADRANT ULTRASOUND HISTORY: right upper quadrant COMPARISON: None available. Technically limited evaluation of the RIGHT upper quadrant. Liver: 16.8 cm in length. Liver appears normal in size. Can't hardware liver is poorly visualized. No bile duct dilatation and no mass identified. Gallbladder: Normally distended gallbladder with no stones or wall thickening. CBD: 0.5 cm Pancreas: Not visualized. Right kidney: 11.5 cm in length. Normal size and echogenicity. No hydronephrosis or mass. Aorta and IVC: Unremarkable abdominal aorta and IVC. No ascites. US/US abdomen limited [id number] IMPRESSION: 1. Technically limited evaluation of the RIGHT upper quadrant. 2. Normal gallbladder. 3. No bile duct dilatation.
[2021-04-20] MEDS: metoprolol succinate ER (24 HR) 25 mg Tablet PO (09:26)
[2021-04-20] MEDS: famotidine 20 mg Tablet PEG-TUBE ×2 (09:26→18:05)
[2021-04-20] MEDS: ferrous gluconate 324 mg Tablet PO ×2 (09:26→18:05)
[2021-04-20] MEDS: fentaNYL 25 mcg Patch 1 PATCH TRANSDERMA (09:26)
[2021-04-20] MEDS: thiamine 100 mg Tablet PO (09:27)
[2021-04-20] MEDS: folic acid 1 mg Tablet PO (09:27)
[2021-04-20] MEDS: sennosides 8.6 mg Tablet 17.2 MG PO ×2 (09:27→18:06)
[2021-04-20] MEDS: multivitamin therapeutic Tablet 1 TAB PO (09:27)
[2021-04-20] MEDS: aspirin 81 mg EC Tablet PO (09:27)
[2021-04-20] MEDS: guaiFENesin 600 mg Tablet PO ×2 (09:27→18:05)
[2021-04-20] MEDS: FUROsemide 10 mg/mL SDV 4mL 40 MG IVP ×2 (09:29→20:13)
[2021-04-20] MEDS: enoxaparin 40 mg/0.4 mL Syringe SUBCUT (09:30)
--- NOTE | 2021-04-20 10:45 | PM.PN ---
Documented by User: DIONE Cottrell STDALIYAH 04/20/21 11:33 Subjective Subjective: Interval history: Christopher is sedated, mechanically ventilated through tracheostomy. Can open eyes when spoken to. Appears in no distress. Vitals/I&O/Wt Last Vital Signs Temp 99.4 F 04/20/21 04:00 Pulse 105 H 04/20/21 08:49 Resp 40 H 04/20/21 08:44 BP 99/77 04/20/21 06:15 Pulse Ox 93 04/20/21 08:44 04/19/21 04/20/21 04/20/21 22:59 06:59 14:59 Intake Total 450 / 800 1597.067 / 2397.067 67.177 / 67.177 Output Total 550 / 1450 400 / 1850 Balance -100 / -650 1197.067 / 547.067 67.177 / 67.177 Weight last 48 hrs Weight 90.492 kg Weight 90.991 kg Physical Exam Narrative: EXAM NARRATIVE: Gen: sedated male with tracheostomy, apprears in no acute distress. Neck is supple, no lymphadenopathy or JVD. Tracheostomy noted. Cardiovascular RRR without murmur. Lungs: course breath sounds B/L Abdomen: soft, non tender with positive bowel sounds. PEG tube present. Ext: no clubbing or cyanosis, edema. PICC line present in right upper ext. Urinary Catheter Management^: Mullen: Cath Placed During This Visit: yes, but has since been removed by the nurse Reason for Continuing Indwelling Catheter: Accurate Measurement of Urinary Output in Critically Ill Patients Urinary Catheter Date of Insertion: 04/17/21 Urinary Catheter Time of Insertion: 02:54 Date Urinary Catheter Removed: 04/17/21 Time Urinary Catheter Discontinued: 02:53 Data : 04/20/21 06:30 04/20/21 06:30 Micro: Microbiology 04/19/21 10:40 Blood Culture - Preliminary Blood SPECIMEN COLLECTED 04/19/21 10:47 Blood Culture - Preliminary Blood SPECIMEN COLLECTED Other data: Troponin 109 Pro calcitonin 0.44 AST 70 ALT 64 Alk phos 135 Albumin 1.9 ECG sinus tachycardia with T wave abnormality and inferior infarction of indeterminate age. Blood cultures were repeated A&P Assessment and plan (1) Hypoxemia: FiO2 65% PEEP 10. Continue to try and wean FiO2 as tolerated. Use fentanyl as needed. Attempt to wean precedex each day. Continue daily pressure support trials. will give 40 mg of Lasix IV. Status: Acute (2) COVID-19: Severe COVID-19 with ARDS. As above. Status: Acute (3) Ischemic cardiomyopathy: Troponin 109. ECG sinus tachycardia with T wave abnormality and inferior infarction of indeterminate age. Echocardiogram pending. Status: Acute (4) Acute kidney injury: Resolved. Status: Acute (5) Hyponatremia: Resolved. Status: Acute (6) Atherosclerosis of coronary artery of [place] heart without angina pectoris: Continue cardiac medications. Status: Acute Qualifiers: Coronary Disease-Associated Artery/Lesion type: unspecified vessel or lesion type Qualified Code(s): I25.10 - Atherosclerotic heart disease of [place] coronary artery without angina pectoris (7) Dyslipidemia: Status: Acute (8) Benign essential HTN: Status: Acute (9) Neck mass: CT scan neck demonstrated no mass Status: Acute (10) Fever: T max 99.4 Continue caspofungin, vancomycin, and primaxin for broad spectrum coverage. Blood cultures repeated 04/19/21 pending. RUQ Ultrasound to evaluate for cholecystitis. Status: Acute Additional A&P Information Continue feedings at 50ml/hr Continue OT and PT as tolerated for weakness. Overall plan is placement to long-term care. Full code. Lovenox for DVT prophylaxis Attestations Medical Necessity Statement*: Needs continued hospital stay secondary to severe COVID-19 pneumonia requiring mechanical ventilation. 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 I saw the patient as well. No particular changes. Medications: Reviewed: Yes Physical Exam Narrative: EXAM NARRATIVE: Agree with above. I examined the patient as well. Urinary Catheter Management^: Mullen: Cath Placed During This Visit: no Data : 04/20/21 06:30 04/20/21 06:30 A&P Additional A&P Information Agree with above. Overall his respiratory status appears stable. He has had significantly in more than out in the last 3 to 5 days so we will attempt to diurese with 40 mg of Lasix every 12 hours. Monitor blood pressure closely during this process. Continue to wean ventilator off with pressure support trials I have placed a fentanyl patch to prevent withdrawal and are using fentanyl as needed, Ativan as needed. Yesterday troponin was checked secondary to telemetry monitoring abnormalities. This was elevated, but had no significant delta. Secondary to his past history of coronary disease are awaiting an echocardiogram to determine if ejection fraction has decreased during his acute illness. Recurrent fevers have been an issue but fever curve has defervesced in the last day. Currently on caspofungin, vancomycin, imipenem. He has 2 sites with yeast, with last sputum culture growing Mary albicans. If nothing changes caspofungin could be downgraded to fluconazole in several days. Gallbladder ultrasound will be done to see if a calculus cholecystitis could be present secondary to increased LFTs which are improving. Overall his prognosis is very guarded considering the severity of his illness. He would be a good candidate for long-term care hospital which we are trying to arrange. Attestations Medical Necessity Statement*: Needs continued hospital stay secondary to severe COVID-19 pneumonia requiring mechanical ventilation Critical Care Time: Critical Care Time (min): 35 Other Attestations: The high probability of a clinically significant, sudden or life threatening deterioration of the patient's [pulmonary, infectious disease] system(s) required my full and direct attention, intervention and personal management. The critical care time is as shown. 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
[2021-04-20] MEDS: fentaNYL 50 mcg/mL INJ 2mL 25 MCG IVP ×2 (11:00→16:45)
--- NOTE | 2021-04-20 14:38 | PC.NURSE ---
worked pt's arms and legs. Did passive ROM, when staff asked him to use his foot to push, he was able to. He is very weak but followed the command and did attempt. Squeezed my hand when asked as well.
[2021-04-20] MEDS: LORazepam 2 mg/mL INJ 1 mL 1 MG IVP ×2 (15:31→21:20)
[2021-04-20] MEDS: quetiapine 25 mg Tablet PO (20:13)
[2021-04-21] VITALS (90 sets, daily range): BP systolic 59–128; BP diastolic 42–91; PULSE 76–164; RESP 20–36; TEMP 36.7–38.2; O2SAT 63–100
[2021-04-21] MEDS: fentaNYL 50 mcg/mL INJ 2mL 25 MCG IVP ×2 (01:06→08:52)
--- NOTE | 2021-04-21 01:55 | PC.NURSE ---
Bath done at this time. trach and PEG site assessed and care performed. Trach site appears deep red and ulcerated. optifoam applied along with regular drain sponge dressing.
[2021-04-21] MEDS: vancomycin 1,000 MG in sodium chloride 0.9% 250 ML 250 MG IV ×2 (03:36→17:34)
--- NOTE | 2021-04-21 05:41 | PC.NURSE ---
Shift Note Frequent safety and comfort rounds continue. Orders and nursing care completed as indicated. Patient monitored for response to intervention and treatments. Education provided including importance of passive movements and repositioning. Patient requires reinforcement. patient diuresed with lasix early last night, responding well. patient remains alert but very lethargic. continues to be extremely week, only able to slightly twitch fingers and toes. trach care done as indicated. remains tachycardic despite pain relieving methods. Will continue to monitor.
[2021-04-21] MEDS: ipratropium-albuterol 3 mL Neb INHALATION ×4 (07:48→19:48)
[2021-04-21] MEDS: budesonide 0.5 mg/2 mL Neb INHALATION ×2 (07:48→19:48)
[2021-04-21] MEDS: LORazepam 2 mg/mL INJ 1 mL 1 MG IVP (07:58)
[2021-04-21] MEDS: sennosides 8.6 mg Tablet 17.2 MG PO ×2 (08:56→17:35)
[2021-04-21] MEDS: guaiFENesin 600 mg Tablet PO ×2 (08:56→17:35)
[2021-04-21] MEDS: multivitamin therapeutic Tablet 1 TAB PO (08:56)
[2021-04-21] MEDS: quetiapine 100 mg Tablet 50 MG PO ×2 (08:56→17:34)
[2021-04-21] MEDS: aspirin 81 mg EC Tablet PO (08:56)
[2021-04-21] MEDS: ferrous gluconate 324 mg Tablet PO ×2 (08:56→17:34)
[2021-04-21] MEDS: famotidine 20 mg Tablet PEG-TUBE (08:57)
[2021-04-21] MEDS: metoprolol succinate ER (24 HR) 25 mg Tablet PO (08:57)
[2021-04-21] MEDS: folic acid 1 mg Tablet PO (08:57)
[2021-04-21] MEDS: FUROsemide 10 mg/mL SDV 4mL 40 MG IVP ×2 (08:58→19:59)
[2021-04-21] MEDS: enoxaparin 40 mg/0.4 mL Syringe SUBCUT ×2 (08:58→11:12)
[2021-04-21] MEDS: thiamine 100 mg Tablet PO (08:59)
[2021-04-21] MEDS: acetaminophen 325 mg Tablet 650 MG PO (09:00)
[2021-04-21] MEDS: sodium chloride 0.9% 1,000 ML 999 ML IV (10:24)
[2021-04-21 10:37] LABS: Basophils % 0.4 %; Eosinophils # 0.9 10^3/uL (0.0-0.8); Eosinophils % 11.4 %; Hematocrit 26.3 % (42.0-52.0); Hemoglobin 8.3 g/dL (11.7-16.6); Lymphocytes # 0.8 10^3/uL (0.8-4.8); Lymphocytes % 9.3 %; Mean Corpuscular HGB Conc 31.6 g/dL (30.0-36.0); Mean Platelet Volume 10.9 fL (7.4-10.4); Monocytes # 0.5 10^3/uL (0.2-0.9); Monocytes % 6.3 %; Neutrophils # 5.75 10^3/uL (1.8-7.7); Neutrophils % 70.9 %; Nucleated Red Blood Cells % 0 %; Platelet Count 328 10^3/cmm (130-400); Red Blood Count 2.37 10^6/uL (4.1-5.3); Red Cell Distribution Width 13.2 % (12.1-15.1); White Blood Count 8.1 10^3/uL (4.0-10.0)
--- NOTE | 2021-04-21 10:40 | XRR_ITS ---
PROCEDURE INFORMATION: Exam: XR Chest Exam date and time: 04/21/2021 10:40 AM Age: 60 years old Clinical indication: Other: Post cpr TECHNIQUE: Imaging protocol: XR of the chest. Views: 1 view. Total images: 1 COMPARISON: CR XR chest 1V portable [id number] 04/19/2021 7:53 AM FINDINGS: Tubes, catheters and devices: Tubes and catheters are unchanged from the prior exam. Lungs: Coarse chronic pulmonary markings. Bilateral pulmonary opacities are again noted and appear unchanged. Pleural spaces: Unremarkable. No pleural effusion. No pneumothorax. Heart/Mediastinum: Heart is enlarged but stable when compared to the prior exam. Bones/joints: Osseous structures are unchanged from the prior exam. XR/XR chest 1V portable [id number] IMPRESSION: 1. Tubes and catheters are unchanged from the prior exam. 2. Heart is enlarged but stable when compared to the prior exam. 3. Coarse chronic pulmonary markings. 4. Bilateral pulmonary opacities are again noted and appear unchanged.
--- NOTE | 2021-04-21 10:47 | USCV_ITS ---
Christopher Reinoso Age: 60 Gender: M : 1960 Exam Date: 04/21/2021 11:16 Ordering Phys: Charles Subramanian MD Technologist: Desiree Galaviz Exam Location: [facility] [place] Indication: Cardiac arrest BP: 102 / 69 HR: 148 Rhythm: Sinus Technical Quality: Very technically difficult study MEASUREMENTS (Male / Female) Normal Values M-MODE LV Diastolic Diameter MM 4.7 cm 4.2 - 5.9 / 3.9 - 5.3 cm LV Systolic Diameter MM 3.5 cm LV Ejection Fraction MM Teich 49.3 % IVS Diastolic Thickness MM 1.4 cm 0.6 - 1.0 / 0.6 - 0.9 cm IVS Systolic Thickness MM 1.5 cm LVPW Diastolic Thickness MM 1.2 cm 0.6 - 1.0 / 0.6 - 0.9 cm LVPW Systolic Thickness MM 1.1 cm DOPPLER Right Atrial Pressure 15.0 mmHg FINDINGS Left Ventricle Normal left ventricular cavity size. Moderately decreased left ventricular systolic function. Left ventricular ejection fraction is estimated at 40 %. Global left ventricular hypokinesis. Grade I/IV diastolic dysfunction (abnormal relaxation filling pattern), normal to mildly elevated filling pressures. In the presence of tachycardia and post cardiac arrest ejection fraction may not be accurately measured. Right Ventricle Normal right ventricular size. No RV strain noted Right Atrium Left Atrium Mitral Valve Aortic Valve Tricuspid Valve Pulmonic Valve Pericardium Aorta CONCLUSIONS 1-Normal left ventricular cavity size. Moderately decreased left ventricular systolic function. Left ventricular ejection fraction is estimated at 40 %. Global left ventricular hypokinesis. Grade I/IV diastolic dysfunction (abnormal relaxation filling pattern), normal to mildly elevated filling pressures. In the presence of tachycardia and post cardiac arrest ejection fraction may not be accurately measured. 2-Normal right ventricular size. No RV strain noted. 3-There is no pericardial effusion. 4-Right atrial pressure is around 20 mm of mercury could be due to on ventilator 6-Please note that this is a limited quality study therefore cannot compare it with prior echo Chantel Ray MD (Electronically Signed) Final Date: 21 April 2021 16:17 S
--- NOTE | 2021-04-21 10:49 | ECG_ITS ---
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1960 Requested By: Charles Subramanian Order Number: [id number] Reading MD: MONICA FARR Measurements Intervals [place] Rate: 164 P: [place]: QRS: -21 QRSD: 207 T: 0 QT: 279 QTc: 462 Interpretive Statements Possible atrial flutter ABNORMAL RHYTHM ECG INTERPRETATION BASED ON A DEFAULT AGE OF 40 YEARS Compared to ECG 04/19/2021 15:44:30 Sinus tachycardia no longer present Ventricular premature complex(es) no longer present Myocardial infarct finding no longer present T-wave abnormality no longer present Possible ischemia no longer present Electronically Signed On 04-21-2021 20:15:24 CDT by MONICA FARR [email or web address].[email or web address]/store/NU/[id number] f
[2021-04-21] MEDS: DOBUTamine drip 500 MG/250 ML PREMIX 12.95 MG IV (10:51)
--- NOTE | 2021-04-21 11:06 | USR_ITS ---
PROCEDURE INFORMATION: Exam: US Duplex Lower Extremity Veins, Bilateral Exam date and time: 04/21/2021 11:06 AM Age: 60 years old Clinical indication: Edema, localized; Lower extremity, bilateral; Additional info: Dvt TECHNIQUE: Imaging protocol: Real-time duplex ultrasound of the extremities with 2-D landis scale, color Doppler flow and spectral waveform analysis with image documentation. Complete exam focused on the bilateral lower extremity veins. COMPARISON: No relevant prior studies available. FINDINGS: Right deep veins: Unremarkable. The common femoral, femoral, proximal profunda femoral, popliteal and peroneal veins are patent without thrombus. Normal Doppler waveforms. Normal compressibility and/or augmentation response. Right superficial veins: Saphenofemoral junction is patent without thrombus. Left deep veins: Unremarkable. The common femoral, femoral, proximal profunda femoral, popliteal and peroneal veins are patent without thrombus. Normal Doppler waveforms. Normal compressibility and/or augmentation response. Left superficial veins: Saphenofemoral junction is patent without thrombus. Soft tissues: Unremarkable. US/CV venous duplex [facility] [id number] IMPRESSION: No sonographic evidence of deep vein thrombosis.
[2021-04-21] MEDS: FUROsemide 10 mg/mL SDV 10mL 60 MG IVP (11:12)
[2021-04-21 11:13] LABS: Basophils % 0.3 %; Eosinophils % 8.9 %; Hemoglobin 8.3 g/dL (11.7-16.6); Lymphocytes # 2.4 10^3/uL (0.8-4.8); Lymphocytes % 20.6 %; Mean Corpuscular HGB Conc 29.6 g/dL (30.0-36.0); Mean Corpuscular Hemoglobin 33.5 pg (28.0-34.0); Mean Corpuscular Volume 112.9 fl (80-94); Mean Platelet Volume 11.3 fL (7.4-10.4); Monocytes # 0.6 10^3/uL (0.2-0.9); Neutrophils # 6.94 10^3/uL (1.8-7.7); Neutrophils % 60.3 %; Nucleated Red Blood Cells # 0.1 /100WBC; Nucleated Red Blood Cells % 0.6 %; Platelet Count 434 10^3/cmm (130-400); Red Blood Count 2.48 10^6/uL (4.1-5.3); Red Cell Distribution Width 13.2 % (12.1-15.1); White Blood Count 11.5 10^3/uL (4.0-10.0)
[2021-04-21 11:13] LABS: Alanine Aminotransferase 50 U/L (0-41); Albumin Level 1.8 g/dL (3.5-5.2); Alkaline Phosphatase 138 IU/L (40-130); Anion Gap 12.5 (5-19); Aspartate Amino Transferase 73 U/L (0-40); Blood Urea Nitrogen 31 mg/dL (8-23); Carbon Dioxide 27 mmol/L (22-29); Chloride 105 mmol/L (98-107); Globulin 4.3 g/dL (1.3-4.6); Glomerular Filtration Rate 56.1 mL/min (90-130); Glucose 135 mg/dL (65-115); Magnesium 2.1 mg/dL (1.7-2.3); Osmolality Calculated 299 mOsm/kg (285-295); Phosphorus 2.9 mg/dL (2.5-4.5); Potassium 4.5 mmol/L (3.5-5.1); Sodium 140 mmol/L (136-145); Total Bilirubin 0.4 mg/dL (0.15-1.2); Total Protein 6.1 g/dL (6.6-8.7)
[2021-04-21 11:28] LABS: D Dimer 9.43 ug/mIFEU (0-0.59)
[2021-04-21] MEDS: norepinephrine 8 MG in dextrose 5 % 500 ML 11.43 MG IV ×2 (11:33→18:09)
[2021-04-21 11:36] LABS: Alanine Aminotransferase 56 U/L (0-41); Albumin Level 1.9 g/dL (3.5-5.2); Alkaline Phosphatase 142 IU/L (40-130); Anion Gap 19.5 (5-19); Aspartate Amino Transferase 89 U/L (0-40); Blood Urea Nitrogen 31 mg/dL (8-23); C Reactive Protein 97.9 mg/L (0.0-4.9); Calcium 7.7 mg/dL (8.5-10.5); Carbon Dioxide 24 mmol/L (22-29); Chloride 103 mmol/L (98-107); Globulin 3.5 g/dL (1.3-4.6); Glomerular Filtration Rate 51.5 mL/min (90-130); Glucose 194 mg/dL (65-115); Osmolality Calculated 306 mOsm/kg (285-295); Potassium 4.5 mmol/L (3.5-5.1); Sodium 142 mmol/L (136-145); Total Bilirubin 0.5 mg/dL (0.15-1.2); Total Protein 5.4 g/dL (6.6-8.7)
[2021-04-21 11:42] LABS: Lactate (Lactic Acid level) 6.6 mmol/L (0.5-2.2); Troponin(5th) Baseline 104 ng/L (0-15)
[2021-04-21 12:20] LABS: Phosphorus 4.6 mg/dL (2.5-4.5)
--- NOTE | 2021-04-21 12:49 | ECG_ITS ---
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1960 Requested By: Charles Subramanian Order Number: [id number] Reading MD: MONICA FARR Measurements Intervals [place] Rate: 131 P: 58 WA: 140 QRS: -34 QRSD: 122 T: -67 QT: 333 QTc: 492 Interpretive Statements SINUS TACHYCARDIA LEFT AXIS DEVIATION [QRS AXIS < -30] MODERATE INTRAVENTRICULAR CONDUCTION DELAY [110+ ms QRS DURATION] ST DEVIATION AND MODERATE T-WAVE ABNORMALITY, CONSIDER INFERIOR ISCHEMIA [-0.1+ mV T-WAVE IN II/aVF] Compared to ECG 04/21/2021 11:01:50 Left-axis deviation now present Intraventricular conduction delay now present T-wave abnormality now present Possible ischemia now present Atrial flutter no longer present Myocardial infarct finding no longer present ST (T wave) deviation no longer present Electronically Signed On 04-21-2021 20:17:27 CDT by MONICA FARR [id number]
[2021-04-21 13:11] LABS: Troponin 5 2HR 98.33 ng/L (0-15)
[2021-04-21 13:16] LABS: Troponin 5 2HR Delta -5.67 ABS# (0-10)
--- NOTE | 2021-04-21 13:23 | PC.NURSE ---
Change in condition: At approx 1015 phys was notified of pt's MAP being 47. Phys ordered NS bolus with orders to start Levophed after 15 min if MAP was not greater. 1020: Bolus started 1030: MAp was decreasing further so Levo was started. Pt's sats were beginning to go in to the low 80's high 70s. RT at bedside. Pt placed in Trendelenburg. Phys and charge nurse notified of pt's decline. Physician at bedside 1033: CODE blue called Pt placed in position for CPR and Zoll was connected. Epi ordered and given. No pulse palpated Compressions started 1035: Pulse check - No pulse Compressions continued Sodium Bi-carb ordered and given 1037: 2mg Mag given Pulse check - no pulse Compressions resumed 1039: ROSC obtained EKG and chest xray ordered Pt HR is aflutter - Amio bolus and drip started - Family notified by Phys - Levo on - Dobutamine started
--- NOTE | 2021-04-21 14:15 | P.PN_ITS ---
Subjective Subjective: Interval history: Overnight no acute events, this morning he had a T-max 100.4, was a bit agitated on the ventilator, he has a fentanyl patch on place, has received Ativan, Haldol overnight, normotensive, no urticaria events, was on 60% FiO2, slightly tachypneic, 2700 cc of urine output, according to nursing staff, he does not really follow commands, Early in the morning, was paged by nurses, as patient's map was in the low 40s, pulse was barely detectable, rhythm on the telemetry showed normal sinus rhythm, patient was tachypneic on the ventilator, had mottling of bilateral lower extremities and abdomen, when I arrived in ICU, patient did not have a detectable pulse, had pulseless electrical activity on the telemetry monitoring, had mottling of lower extremities, abdomen, was on 100% FiO2, was being bagged by respiratory therapy, O2 sats were in the 70s, Patient had PEA, CODE BLUE called, started chest compressions, received 1 mg of epi, 2 minutes after chest compressions, patient had a barely detectable pulse, telemetry monitoring was reading sinus tachycardia, pulse was lost, resume chest compressions, patient's Levophed was turned up from 20-60, was given one amp of bicarb, 2 g of mag, and next pulse check, rhythm was sinus, pulse was barely detectable, CPR was resumed, after roughly 6 minutes of CPR, Levophed was turned up to 200, patient had a pulse, good femoral, blood pressures were in the 110s over 60s, rhythm showed sinus rhythm, EKG showed minimal ST-T wave changes inferior leads, no QT prolongation, which I reviewed with cardiology, no evidence of acute TN, chest x-ray had no evidence of pneumothorax, equal lung sounds bilaterally, possibly patient could have undergone an embolic event, started on therapeutic Lovenox, will get 1 unit of blood, given 40 mg of Lasix, repeat blood work has been ordered, will place on vasopressin, will add Levaquin, is on vancomycin, Primaxin, is on caspofungin, blood work does not show any significant anemia, but will give 1 unit PRBC as above trend troponins, monitor respiratory status The following discussion was made in part of nursing bath patient's family was seen at bedside, I went over patient's critical status, prognosis is guarded, patient has severe COVID-19 pneumonia, has chronic respiratory failure, plans on transferring to [facility], currently trached and pegged, he does not have any significant meaningful responses at this time, he is undergone PEA, possibly secondary to pulmonary emboli, currently is on 200 of Levophed, is in shock, it seems like for the last few days he can only follow minimal commands, patient sons tells me that his father would not want to live like this, he asked me if his father would have a quality of life he would he be able to wake up, and am bulate, I felt that it is unlikely for him to the same level of functioning he had before all this, the likelihood of him having a meaningful recovery including getting up and having a conversation is fairly unlikely, however we could certainly give him a chance, trip if he we could stabilize him get him over this acute episode, and eventually give him time, given time at [facility], he might have some degree of recovery, however I am uncertain what level of recovery he might show. He has received 6 minutes of CPR, there is also concerns for possible neurologic injury and's given his PEA, possible pulmonary emboli, he is status is critical prognosis guarded. Patient's , 2 sons were at bedside, they were discussing patient's goals of care, they would discuss with me further on what they would would like me to do Medications: Reviewed: Yes Vitals/I&O/Wt Last Vital Signs Temp 100.8 F H 04/21/21 12:00 Pulse 128 H 04/21/21 12:00 Resp 27 H 04/21/21 13:15 BP 102/69 04/21/21 12:00 Pulse Ox 93 04/21/21 13:15 04/20/21 04/21/21 04/21/21 22:59 06:59 14:59 Intake Total 990 / 5108.805 8249 / 5737.177 Output Total 850 / 850 1850 / 2700 Balance 140 / 509.456 9828 / 3037.177 Weight last 48 hrs Weight 86.353 kg Weight 90.492 kg Physical Exam Narrative: EXAM NARRATIVE: Currently intubated, sedated, on 100% FiO2 Resp: EFFORT & INSPECTION: Yes tachypneic AUSCULTATION: wheezes Cardio: COMMON NORMALS: S1 normal heart sound present and S2 normal heart sound present RATE: tachycardic RHYTHM: abnormal rhythm irregularly irregular HEART SOUNDS: S1 normal heart sound present and S2 normal heart sound present GI: COMMON NORMALS: Normal to inspection, nondistended, normoactive bowel sounds present, Soft to palpation and non-tender PALPATION: Yes Soft to palpation Extremity: COMMON NORMALS: no pedal edema Urinary Catheter Management^: Mullen: Cath Placed During This Visit: yes, but has since been removed by the nurse Reason for Continuing Indwelling Catheter: Accurate Measurement of Urinary Output in Critically Ill Patients Urinary Catheter Date of Insertion: 04/17/21 Urinary Catheter Time of Insertion: 02:54 Date Urinary Catheter Removed: 04/17/21 Time Urinary Catheter Discontinued: 02:53 Sepsis: Is patient septic: Yes Focused sepsis exam performed: Yes Date exam was performed: 04/21/21 Time exam was performed: 10:30 Data : 04/21/21 10:25 04/21/21 10:25 Micro: Microbiology 04/20/21 10:30 Gram Stain - Final Sputum - Endotracheal Tube Aspirate Sputum Culture - Preliminary 04/19/21 10:47 Blood Culture - Preliminary Blood NEGATIVE TO DATE 04/19/21 10:40 Blood Culture - Preliminary Blood NEGATIVE TO DATE A&P Assessment and plan (1) PEA (Pulseless electrical activity): -Status post CPR -Return of circulation -EKG shows slight ST-T wave changes in inferior leads, discussed with cardiology, no evidence of acute TN, baseline troponin I 04, 120-minute, 98.33 -Serial EKGs, serial troponins -Lactic acid 6.6, trend lactic acids -BNP 46419 -Creatinine 1.4 -D-dimer 9.43 -Bilateral lower extremity ultrasound negative for DVT -CT angiogram ordered -Currently on therapeutic Lovenox -Status post one dose Lasix, drain output, chest x-ray shows diffuse pulmonary vascular congestion -Continue Levaquin, vancomycin, Primaxin, caspofungin -Follow blood cultures, sputum cultures -Hemoglobin 8.3, transfuse 1 unit PRBC -Limited cardiac echocardiogram pending -Currently on 200 Levophed, vasopressin, wean as tolerated -Status post 1 L normal saline, hold fluid boluses given concerns for fluid overload -Resume Lasix 40 mg IV twice daily, monitor urine output, chest x-ray showing pulmonary vascular congestion, -For A. fib with RVR, received amiodarone bolus, currently on amiodarone drip -Ventilator, 100% FiO2, continue ventilatory support, resume sedation, minimize PEEP, minimize FiO2 -Currently does not follow commands, pupils dilated -Continue fentanyl patch -Fentanyl, propofol for sedation -Hold tube feeds -Patient's family has made him DNR -Protonix 40 IV ABD, Carafate -Therapeutic Lovenox -We will discuss possible comfort care with family -Status is critical, prognosis is guarded Status: Acute (2) Atrial fibrillation and flutter: Status: Acute (3) Hypoxemia: Hypoxia persists. Secondary to COVID-19 pneumonia, acute respiratory distress syndrome, FiO2 requirement up to 100%. Noted thrombophlebitis with thrombus within cephalic vein of left forearm. Continue cefepime, vancomycin. Sputum cultures were repeated 04/14. He has completed his course of remdesivir, and dexamethasone Initial antibiotic course of azithromycin, ceftriaxone. Tracheostomy performed late April 11 PEG tube was placed 04/13. Arrangements also underway for placement to long-term care. Status: Acute (4) COVID-19: Severe COVID-19 with ARDS. As above. Status: Acute (5) Ischemic cardiomyopathy: No symptoms currently Status: Acute (6) Acute kidney injury: Resolved. Status: Acute (7) Hyponatremia: Resolved. Status: Acute (8) Atherosclerosis of coronary artery of sun'[place] heart without angina pectoris: Continue cardiac medications. Status: Acute Qualifiers: Coronary Disease-Associated Artery/Lesion type: unspecified vessel or lesion type Qualified Code(s): I25.10 - Atherosclerotic heart disease of [place] coronary artery without angina pectoris (9) Dyslipidemia: Status: Acute (10) Benign essential HTN: Status: Acute (11) Neck mass: Indeterminate left neck mass measuring nearly 3 cm in size, does not appear to originate from the thyroid. CT scan neck demonstrated no mass Status: Acute (12) Fever: Recurrence. See notation above. Status: Acute Additional A&P Information Agree with above. Continue to wean ventilator off with pressure support trials He has 2 sites with yeast, with last sputum culture growing Mary albicans. If nothing changes caspofungin could be downgraded to fluconazole in several days. Attestations Medical Necessity Statement*: Patient requires hospitalization for PEA, A. 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 [facility] Diagnoses PEA (Pulseless electrical activity) I46.9 Atrial fibrillation and flutter I48.91; I48.92 Hypoxemia R09.02 COVID-19 U07.1 Ischemic cardiomyopathy I25.5 Acute kidney injury N17.9 Hyponatremia E87.1 Atherosclerosis of coronary artery of [place] heart without angina pectoris I25.10 Coronary Disease-Associated Artery/Lesion type: unspecified vessel or lesion type Dyslipidemia E78.5 Benign essential HTN I10 Neck mass R22.1 Fever R50.9 Sepsis Event Note Evaluation Current stage of sepsis: severe sepsis Reason for ruling out sepsis: Combination of shock, likely cardiogenic, septic, hypovolemic, PA Initial hypotension due to sepsis/infection: MAP < 65 mmHg Persistent hypotension due to sepsis/infection: MAP < 65 mmHg Possible source: pulmonary Focused Exam Vital Signs Temp Pulse Resp BP Pulse Ox 04/21/21 13:15 27 H 93 04/21/21 12:00 100.8 F H 128 H 25 H 102/69 90 04/21/21 11:19 90 04/21/21 11:17 128 H 25 H 92 04/21/21 11:05 100 04/21/21 10:50 28 H 90 04/21/21 10:00 100.8 F H 100 30 H 102/69 92 04/21/21 08:45 30 H 94 04/21/21 07:54 100.8 F H 100 30 H 102/69 92 04/21/21 07:52 36 H 92 04/21/21 07:51 119 H 34 H 92 04/21/21 06:35 35 H 91 04/21/21 06:30 118 H 102/69 91 04/21/21 06:00 115 H 20 H 105/66 94 04/21/21 05:30 113 H 105/66 94 04/21/21 05:29 114 H 04/21/21 05:00 116 H 28 H 101/60 92 04/21/21 04:30 117 H 101/60 94 04/21/21 04:00 117 H 113/81 100 04/21/21 03:30 99 F 119 H 20 H 113/81 96 04/21/21 03:18 29 H 95 04/21/21 03:16 116 H 29 H 95 04/21/21 03:00 119 H 107/78 96 Respiratory exam: Present respiratory distress Cardiovascular exam: Present tachycardia Capillary refill: < 3 Seconds Peripheral pulse strength: 1+ Faint Peripheral pulse location: Radial Skin exam: mottling Date exam was performed: 04/21/21 Time exam was performed: 14:33 Problem List (1) Hypoxemia: Status: Acute (2) COVID-19: Status: Acute (3) Ischemic cardiomyopathy: Status: Acute (4) Acute kidney injury: Status: Acute (5) Hyponatremia: Status: Acute (6) Atherosclerosis of coronary artery of [place] heart without angina pectoris: Status: Acute (7) Dyslipidemia: Status: Acute (8) Benign essential HTN: Status: Acute (9) Neck mass: Status: Acute (10) Fever: Status: Acute (11) PEA (Pulseless electrical activity): Status: Acute (12) Atrial fibrillation and flutter: Status: Acute
[2021-04-21] MEDS: propofol 1,000 MG/100 ML INJ 15.54 MG IV ×2 (14:56→21:15)
[2021-04-21] MEDS: pantoprazole 40 mg SDV IVP (15:43)
[2021-04-21] MEDS: levofloxacin-dextrose 5 % 750 MG/150 ML PREMIX 100 MG IV (15:43)
--- NOTE | 2021-04-21 15:44 | PC.RESP ---
RT Shift Note Frequent safety and respiratory rounds continue. Orders completed as indicated. Patient monitored pre and post treatments throughout shift. Patient [Did.] tolerate treatments appropriately. Condition [.DidNotChange]. Patient and/or front desk representative educated on respiratory treatment and medications. Patient and/or front desk representative [unable to comprehend]. Will continue to monitor patient progress.
--- NOTE | 2021-04-21 16:49 | ECG_ITS ---
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1960 Requested By: Charles Subramanian Order Number: [id number] Reading MD: MONICA FARR Measurements Intervals [place] Rate: 147 P: [place]: QRS: -20 QRSD: 120 T: 0 QT: 214 QTc: 335 Interpretive Statements ATRIAL FLUTTER/TACHYCARDIA WITH RAPID VENTRICULAR RESPONSE INFERIOR MYOCARDIAL INFARCTION , OF INDETERMINATE AGE [40+ ms Q WAVE AND/OR ST/T ABNORMALITY IN II/aVF] MARKED ST DEPRESSION, CONSIDER SUBENDOCARDIAL INJURY [0.2+ mV ST DEPRESSION] ACUTE LA Compared to ECG 04/19/2021 15:44:30 ST (T wave) deviation now present Sinus tachycardia no longer present Ventricular premature complex(es) no longer present T-wave abnormality no longer present Possible ischemia no longer present Myocardial infarct finding still present Electronically Signed On 04-21-2021 20:17:46 CDT by MONICA FARR [id number]
[2021-04-21] MEDS: sucralfate 1 gm/10 mL Oral Liq UDC PO (17:34)
[2021-04-21 18:13] LABS: Troponin 5 6HR 131.6 ng/L (0-15); Troponin 5 6HR Delta 27.6 ng/L (0-12)
[2021-04-21] MEDS: atorvastatin 40 mg Tablet PO (20:50)
[2021-04-21] MEDS: enoxaparin 80 mg/0.8 mL Syringe SUBCUT (21:15)
[2021-04-21] MEDS: norepinephrine 8 MG in dextrose 5 % 500 ML 76.2 MG IV (22:03)
[2021-04-22] VITALS (66 sets, daily range): BP systolic 82–146; BP diastolic 60–92; PULSE 86–109; RESP 22–32; TEMP 37.2–37.4; O2SAT 82–98
[2021-04-22] MEDS: ipratropium-albuterol 3 mL Neb INHALATION ×7 (00:45→23:45)
[2021-04-22] MEDS: propofol 1,000 MG/100 ML INJ 15.54 MG IV ×3 (02:57→15:22)
[2021-04-22] MEDS: vancomycin 1,000 MG in sodium chloride 0.9% 250 ML 250 MG IV (03:16)
[2021-04-22] MEDS: pantoprazole 40 mg SDV IVP ×2 (03:16→15:22)
[2021-04-22] MEDS: norepinephrine 8 MG in dextrose 5 % 500 ML 76.2 MG IV ×3 (04:28→18:17)
[2021-04-22 04:45] LABS: Basophils # 0.1 10^3/uL (0.0-0.1); Basophils % 0.7 %; Eosinophils # 1.4 10^3/uL (0.0-0.8); Eosinophils % 11.2 %; Hematocrit 31.1 % (42.0-52.0); Hemoglobin 9.8 g/dL (11.7-16.6); Lymphocytes # 1.4 10^3/uL (0.8-4.8); Lymphocytes % 10.5 %; Mean Corpuscular HGB Conc 31.5 g/dL (30.0-36.0); Mean Corpuscular Hemoglobin 33.3 pg (28.0-34.0); Mean Corpuscular Volume 105.8 fl (80-94); Mean Platelet Volume 11.1 fL (7.4-10.4); Neutrophils # 8.16 10^3/uL (1.8-7.7); Neutrophils % 63.7 %; Nucleated Red Blood Cells % 0.3 %; Platelet Count 565 10^3/cmm (130-400); Red Blood Count 2.94 10^6/uL (4.1-5.3); Red Cell Distribution Width 14.8 % (12.1-15.1); White Blood Count 12.8 10^3/uL (4.0-10.0)
[2021-04-22 05:06] LABS: Alanine Aminotransferase 67 U/L (0-41); Albumin Level 1.7 g/dL (3.5-5.2); Alkaline Phosphatase 159 IU/L (40-130); Aspartate Amino Transferase 111 U/L (0-40); Blood Urea Nitrogen 31 mg/dL (8-23); C Reactive Protein 98.1 mg/L (0.0-4.9); Calcium 7.6 mg/dL (8.5-10.5); Carbon Dioxide 27 mmol/L (22-29); Chloride 94 mmol/L (98-107); Globulin 5.3 g/dL (1.3-4.6); Glomerular Filtration Rate 41.2 mL/min (90-130); Glucose 138 mg/dL (65-115); Magnesium 2.5 mg/dL (1.7-2.3); Osmolality Calculated 281 mOsm/kg (285-295); Phosphorus 4.5 mg/dL (2.5-4.5); Sodium 131 mmol/L (136-145); Total Bilirubin 0.7 mg/dL (0.15-1.2)
[2021-04-22 05:07] LABS: Lactate (Lactic Acid level) 1.6 mmol/L (0.5-2.2)
[2021-04-22 05:13] LABS: Anion Gap 14.7 (5-19); Potassium 4.7 mmol/L (3.5-5.1); Procalcitonin 1.09 ng/mL (0-0.5)
[2021-04-22 05:16] LABS: INR 1.15 (0.8-1.2)
[2021-04-22 05:24] LABS: ABG PCO2 53.4 mmHg (35-45); ABG PH Result 7.37 (7.35-7.45); Arterial Blood Gas Hematocrit 33.1 % (42-52); Base Excess ABG 4.8 mmol/L (-2.0-2.0); Blood Gas Sample Site Brachial, right; Blood Gas Sample Type Arterial; HCO3 ABG 31.1 mmol/L (22-26); Oxygen Device VENT; PO2 ABG 52.2 mmHg (80.0-100.0)
[2021-04-22 05:26] LABS: Creatine Phosphokinase 220 U/L (39-308)
[2021-04-22 05:27] LABS: D Dimer 9.36 ug/mIFEU (0-0.59)
[2021-04-22 05:33] LABS: NT Pro B Type Natriuretic Pept 31105 pg/mL (0-125)
[2021-04-22 05:44] LABS: Slide Review Slide Review Perform
[2021-04-22] MEDS: sucralfate 1 gm/10 mL Oral Liq UDC PO ×2 (06:01→11:08)
--- NOTE | 2021-04-22 06:17 | PC.NURSE ---
Shift Note Frequent safety and comfort rounds continue. Orders and/or nursing care completed as indicated. Patient monitored for response to intervention and treatment(s). Education provided includes central line care. Patient and/or client account representative reinforcement needed. Will continue to monitor.
--- NOTE | 2021-04-22 07:00 | XRR_ITS ---
PROCEDURE INFORMATION: Exam: XR Chest Exam date and time: 04/22/2021 7:00 AM Age: 60 years old Clinical indication: Shortness of breath; Additional info: SOB TECHNIQUE: Imaging protocol: XR of the chest. Views: 1 view. Total images: 1 COMPARISON: CR (CHEST, ) 04/21/2021 10:42 AM FINDINGS: Tubes, catheters and devices: Tubes and catheters are unchanged from the prior exam. Lungs: Stable bilateral pleuroparenchymal disease. Pleural spaces: No pneumothorax. Heart/Mediastinum: Heart is enlarged but stable when compared to the prior exam. Bones/joints: Osseous structures are unchanged from the prior exam. XR/XR chest 1V portable [id number] IMPRESSION: 1. Tubes and catheters are unchanged from the prior exam. 2. Heart is enlarged but stable when compared to the prior exam. 3. Stable bilateral pleuroparenchymal disease.
[2021-04-22] MEDS: FUROsemide 10 mg/mL SDV 4mL 40 MG IVP (07:17)
[2021-04-22] MEDS: budesonide 0.5 mg/2 mL Neb INHALATION ×2 (08:01→19:48)
[2021-04-22] MEDS: multivitamin therapeutic Tablet 1 TAB PO (08:55)
[2021-04-22] MEDS: aspirin 81 mg EC Tablet PO (08:55)
[2021-04-22] MEDS: ferrous gluconate 324 mg Tablet PO ×2 (08:55→16:49)
[2021-04-22] MEDS: metoprolol succinate ER (24 HR) 25 mg Tablet PO (08:55)
[2021-04-22] MEDS: quetiapine 100 mg Tablet 50 MG PO ×2 (08:55→16:50)
[2021-04-22] MEDS: dilTIAZem 60 mg Tablet PO ×3 (08:55→20:06)
[2021-04-22] MEDS: sennosides 8.6 mg Tablet 17.2 MG PO ×2 (08:55→16:50)
[2021-04-22] MEDS: guaiFENesin 600 mg Tablet PO ×2 (08:55→16:50)
[2021-04-22] MEDS: thiamine 100 mg Tablet PO (08:55)
[2021-04-22] MEDS: folic acid 1 mg Tablet PO (08:56)
[2021-04-22] MEDS: metOLazone 5 MG Tablet 10 MG PO (11:08)
[2021-04-22] MEDS: enoxaparin 80 mg/0.8 mL Syringe SUBCUT ×2 (11:08→21:31)
[2021-04-22] MEDS: bumetanide 0.25 mg/mL SDV 4 mL 1 MG IV ×2 (12:47→23:35)
[2021-04-22 13:06] LABS: Troponin T (5th) Once 28 ng/L (0-15)
--- NOTE | 2021-04-22 13:06 | PM.PN ---
Subjective Subjective: Interval history: Patient was seen this morning, overnight he had episodes of desaturations, and low blood pressures, which seemed to improve with Lasix therapy, low-grade fevers overnight, currently on Levophed, vasopressin, amiodarone, he did have pupillary reflexes yesterday, continues to have pupillary reflexes today, currently sedated on propofol, has had 3000 cc urine output, tube feedings have been held I did have a family meeting yesterday evening with patient's entire family, patient does have 2 daughters out of state, patient's would like to talk to them, for now he is DNR, they do not want aggressive interventions, however they are unsure about dialysis if required, and they are unsure about pursuing comfort care, she tells me that if there is a chance for him to recover she wants to give him it, but she does want to talk to her 2 daughters and her 2 sons Vitals/I&O/Wt Last Vital Signs Temp 103 F H 04/22/21 10:00 Pulse 107 H 04/22/21 10:00 Resp 25 H 04/22/21 11:20 BP 127/82 04/22/21 10:00 Pulse Ox 96 04/22/21 11:20 04/21/21 04/22/21 04/22/21 22:59 06:59 14:59 Intake Total 3633.046 / 3945.136 949.078 / 4894.214 781.249 / 781.249 Output Total 1400 / 1400 1600 / 3000 Balance 2233.046 / 2545.136 -650.922 / 1894.214 781.249 / 781.249 Weight last 48 hrs Weight 88.479 kg Weight 86.353 kg Physical Exam Narrative: EXAM NARRATIVE: Currently intubated, sedated, on the ventilator Resp: COMMON NORMALS: normal respiratory effort and No retractions AUSCULTATION: crackles Cardio: COMMON NORMALS: S1 normal heart sound present and S2 normal heart sound present RATE: tachycardic RHYTHM: abnormal rhythm irregularly irregular HEART SOUNDS: S1 normal heart sound present and S2 normal heart sound present GI: COMMON NORMALS: Normal to inspection, nondistended, normoactive bowel sounds present and Soft to palpation AUSCULTATION: Yes normoactive bowel sounds PALPATION: Yes Soft to palpation Extremity: COMMON NORMALS: no pedal edema Urinary Catheter Management^: Mullen: Cath Placed During This Visit: yes, but has since been removed by the nurse Reason for Continuing Indwelling Catheter: Accurate Measurement of Urinary Output in Critically Ill Patients Urinary Catheter Date of Insertion: 04/17/21 Urinary Catheter Time of Insertion: 02:54 Date Urinary Catheter Removed: 04/17/21 Time Urinary Catheter Discontinued: 02:53 Sepsis: Is patient septic: Yes Focused sepsis exam performed: Yes Date exam was performed: 04/22/21 Time exam was performed: 08:00 Data : 04/22/21 03:57 04/22/21 03:57 Micro: Microbiology 04/22/21 11:08 Blood Culture - Preliminary Blood SPECIMEN COLLECTED 04/22/21 11:04 Blood Culture - Preliminary Blood SPECIMEN COLLECTED 04/20/21 10:30 Gram Stain - Final Sputum - Endotracheal Tube Aspirate Sputum Culture - Final A&P Assessment and plan (1) PEA (Pulseless electrical activity): -Possibly secondary to pulmonary embolism and or acute flash pulmonary edema -With underlying acute hypoxic respiratory failure secondary to COVID-19 pneumonia, acute respiratory distress syndrome, status post tracheostomy, status post percutaneous gastrostomy tube placement -Status post CPR -PEA -Return of circulation -EKG shows slight ST-T wave changes in inferior leads, discussed with cardiology, no evidence of acute AL, baseline troponin I 04, 120-minute, 98.33, 6hour 131.6, delta 27.6 -repeat echo Moderately decreased left ventricular systolic function. Left ventricular ejection fraction is estimated at 40 %. Global left ventricular hypokinesis. Grade I/IV diastolic dysfunction (abnormal relaxation filling pattern), normal to mildly elevated filling pressures. -Lactic acid 1.6 -BNP 75333, positive over 10 L -Creatinine 1.7 -D-dimer 9.43 -Bilateral lower extremity ultrasound negative for DVT -CT angiogram cannot be performed due to creatinine -Currently on therapeutic Lovenox -Chest x-ray continues to show pulmonary vascular congestion, BMP over the 3100, +10 L, start Bumex 1 mg every 12 hours, with metolazone, monitor creatinine, monitor urine output -There is a risk that he might require CRRT, I discussed this with the patient's , she tells me that she did not discuss it with the rest of the family members -Continue Levaquin, vancomycin, Primaxin, caspofungin -Follow blood cultures, sputum cultures -Hemoglobin 9.8, status post 1 unit PRBC -Currently on 20 Levophed, 0.04vasopressin, maintain MAP greater than 75 -Hold fluid due to concerns for fluid overload -For AMisael jay with RVR, received amiodarone bolus, currently on amiodarone drip, transition off amiodarone drip, start Cardizem 60 every 6 -Ventilator, 80% % FiO2, continue ventilatory support, resume sedation, minimize PEEP, minimize FiO2 -Currently does not follow commands, pupils equal round reactive to light -Continue fentanyl patch -Fentanyl, propofol for sedation -Hold tube feeds -Patient's family has made him DNR -Protonix 40 IV twice daily, Carafate -Therapeutic Lovenox -Status is critical, prognosis is guarded Status: Acute (2) Atrial fibrillation and flutter: Status: Acute (3) Hypoxemia: Hypoxia persists. Secondary to COVID-19 pneumonia, acute respiratory distress syndrome, FiO2 requirement up to 100%. Noted thrombophlebitis with thrombus within cephalic vein of left forearm. Continue cefepime, vancomycin. Sputum cultures were repeated 04/14. He has completed his course of remdesivir, and dexamethasone Initial antibiotic course of azithromycin, ceftriaxone. Tracheostomy performed late April 11 PEG tube was placed 04/13. Arrangements also underway for placement to long-term care. Status: Acute (4) COVID-19: Severe COVID-19 with ARDS. As above. Status: Acute (5) Ischemic cardiomyopathy: Status: Acute (6) Acute kidney injury: Status: Acute (7) Hyponatremia: Status: Acute (8) Atherosclerosis of coronary artery of [place] heart without angina pectoris: Continue cardiac medications. Status: Acute Qualifiers: Coronary Disease-Associated Artery/Lesion type: unspecified vessel or lesion type Qualified Code(s): I25.10 - Atherosclerotic heart disease of [place] coronary artery without angina pectoris (9) Dyslipidemia: Status: Acute (10) Benign essential HTN: Status: Acute (11) Neck mass: Indeterminate left neck mass measuring nearly 3 cm in size, does not appear to originate from the thyroid. CT scan neck demonstrated no mass Status: Acute (12) Fever: Recurrence. See notation above. Status: Acute Additional A&P Information He has 2 sites with yeast, with last sputum culture growing Mary albicans. If nothing changes caspofungin could be downgraded to fluconazole in several days. Attestations Medical Necessity Statement*: Patient requires hospitalization for acute respiratory failure sec to COVID-19, status post PEA, acute flash from edema, Coding Level of Care Code Acute Senior Oracle Applications Developer for g Fwd Diagnoses PEA (Pulseless electrical activity) I46.9 Atrial fibrillation and flutter I48.91; I48.92 Hypoxemia R09.02 COVID-19 U07.1 Ischemic cardiomyopathy I25.5 Acute kidney injury N17.9 Hyponatremia E87.1 Atherosclerosis of coronary artery of [place] heart without angina pectoris I25.10 Coronary Disease-Associated Artery/Lesion type: unspecified vessel or lesion type Dyslipidemia E78.5 Benign essential HTN I10 Neck mass R22.1 Fever R50.9
[2021-04-22] MEDS: levofloxacin-dextrose 5 % 750 MG/150 ML PREMIX 100 MG IV (15:21)
--- NOTE | 2021-04-22 15:44 | PC.RESP ---
RT Shift Note Frequent safety and respiratory rounds continue. Orders completed as indicated. Patient monitored pre and post treatments throughout shift. Patient [Did.] tolerate treatments appropriately. Condition [.DidNotChange]. Patient and/or business center representative educated on respiratory treatment and medications. Patient and/or business center representative unable to comprehend]. Will continue to monitor patient progress.
[2021-04-22] MEDS: sucralfate 1 gm Tablet PO ×2 (16:49→20:06)
--- NOTE | 2021-04-22 18:29 | PC.NURSE ---
Shift Note Frequent safety and comfort rounds continue. Orders and/or nursing care completed as indicated. Patient monitored for response to intervention and treatment(s). Education provided includes medications used for sedation and blood pressure support. Patient and/or direct sales representative verbalized understanding. Will continue to monitor.
--- NOTE | 2021-04-22 19:03 | P.MISC_ITS ---
Miscellaneous Note Purpose of Documentation: Infectious disease chart review Note: 60M admitted on 03/27 after p/w acute hypoxemic respiratory failure 2/2 covid 19 pneumonia on 03/27. Has had a prolonged hospital admission since due to VDRF, sepsis,poor mentation, transaminitis, ADONIS. He is s/p course of remdisivir, iv dexamethasone until 04/08. Current issues include persistent fever since 04/09 without obvious source of untreated secondary infections. I had discussed case with Dr. Alberto and reviewed chart this past week, recommended changing cefepime to imipenem, obtaining repeat blood cx, obtain RUQ USG to evalute for acalculous cholecystitis. Results summarized below. Pertinent microbiology data Sputum cx : 04/20 , 04/14: resp [place] blood cx : 04/19, 04/13, 04/06: NGTD 04/13: urine cx : yeast; [place] changed 04/09: sputum cx : yeast, identified as inocencio albicans under [facility] [place] lab reports 03/28: negative urine bacterial and legionella ag No diarrhea, not tested for C diff pertinent radiology data: CXR 04/21, 04/19, 04/16, 04/15: stable B/L chest infiltrates 04/15 CTA chest : 1. No evidence of pulmonary emboli within the limitations of the examination described in the body of the report. 2. Patulous peripheral ground-glass opacities within the lungs consistent with COVID pneumonia. There are mild areas of traction bronchiectasis in these regions suggestive of underlying scarring/fibrosis. 04/21: LE venous duplex: negative 04/20: US abdomen : normal gallbladder and biliary ducts. echocardiogram 04/20 and 04/21: no gross vegetations on TTE study Central line removed , currently with picc line PEG placed 04/13 Abx history: Cefepime 04/13 -04/19 imipenem 04/20 to current vancomycin 04/13-current caspofungin 04/17-current fluconazole 04/12-04/16 ceftriaxone 03/29-04/08 Patient continues to spike daily fever 100.8-101F. If in keeping with ongoing GOC discussion with family, recommend CT chest abdomen and pelvis to evalute for source of persisting fever. Discontinue vancomycin. Start Linezolid 600mg iv q12h. Continue imipenem, caspofungin empirically. Alternate possibilities include non infectious inflammatory fever since discontinuing iv streoids.
[2021-04-22] MEDS: linezolid premix 600 MG/300 ML PREMIX 300 MG IV (19:30)
[2021-04-22] MEDS: atorvastatin 40 mg Tablet PO (20:06)
[2021-04-22] MEDS: propofol 1,000 MG/100 ML INJ 20.73 MG IV (20:29)
[2021-04-23] VITALS (61 sets, daily range): BP systolic 109–144; BP diastolic 61–99; PULSE 80–98; RESP 12–32; TEMP 36.9–37.2; O2SAT 85–96
[2021-04-23] MEDS: propofol 1,000 MG/100 ML INJ 23.32 MG IV ×5 (00:12→21:44)
[2021-04-23] MEDS: norepinephrine 8 MG in dextrose 5 % 500 ML 76.2 MG IV ×2 (00:30→15:06)
[2021-04-23] MEDS: dilTIAZem 60 mg Tablet PO ×4 (01:28→20:00)
[2021-04-23] MEDS: ipratropium-albuterol 3 mL Neb INHALATION ×5 (03:08→20:11)
[2021-04-23] MEDS: pantoprazole 40 mg SDV IVP ×2 (03:33→15:47)
[2021-04-23 04:25] LABS: Basophils % 0.2 %; Eosinophils # 1.5 10^3/uL (0.0-0.8); Eosinophils % 13.3 %; Lymphocytes # 0.9 10^3/uL (0.8-4.8); Lymphocytes % 8.2 %; Mean Corpuscular HGB Conc 34.8 g/dL (30.0-36.0); Mean Corpuscular Hemoglobin 35.4 pg (28.0-34.0); Mean Corpuscular Volume 101.8 fl (80-94); Mean Platelet Volume 11.6 fL (7.4-10.4); Monocytes # 0.6 10^3/uL (0.2-0.9); Monocytes % 5.4 %; Neutrophils % 68.1 %; Nucleated Red Blood Cells % 0.3 %; Platelet Count 493 10^3/cmm (130-400); Red Blood Count 2.26 10^6/uL (4.1-5.3); Red Cell Distribution Width 13.5 % (12.1-15.1)
[2021-04-23 04:36] LABS: INR 1.16 (0.8-1.2)
[2021-04-23 04:39] LABS: D Dimer 3.66 ug/mIFEU (0-0.59)
[2021-04-23 04:56] LABS: Lactate (Lactic Acid level) 1.2 mmol/L (0.5-2.2)
[2021-04-23 04:58] LABS: ABG PCO2 59.6 mmHg (35-45); Arterial Blood Gas Hematocrit 29.4 % (42-52); Base Excess ABG 10.7 mmol/L (-2.0-2.0); Blood Gas Sample Site Brachial, right; Blood Gas Sample Type Arterial; HCO3 ABG 37.1 mmol/L (22-26); Oxygen Device VENT; PO2 ABG 58.2 mmHg (80.0-100.0)
[2021-04-23 04:59] LABS: NT Pro B Type Natriuretic Pept 25955 pg/mL (0-125); Procalcitonin 0.92 ng/mL (0-0.5)
[2021-04-23 05:13] LABS: Creatine Phosphokinase 393 U/L (39-308)
[2021-04-23] MEDS: linezolid premix 600 MG/300 ML PREMIX 300 MG IV ×2 (06:08→20:05)
[2021-04-23] MEDS: sucralfate 1 gm Tablet PO ×4 (06:08→20:00)
--- NOTE | 2021-04-23 06:19 | PC.NURSE ---
Shift Note Frequent safety and comfort rounds continue. Orders and/or nursing care completed as indicated. Patient monitored for response to intervention and treatment(s). Education provided includes respiratory function and frequent repositioning. Patient and/or patient registration representative reinforcement needed. Will continue to monitor.
--- NOTE | 2021-04-23 06:36 | PC.SOCIAL ---
IM follow up not provided. Patient currently on vent and discharge not anticipated in 2 days.
--- NOTE | 2021-04-23 07:00 | XRR_ITS ---
PROCEDURE INFORMATION: Exam: XR Chest Exam date and time: 04/23/2021 7:00 AM Age: 60 years old Clinical indication: Dyspnea; Additional info: SOB TECHNIQUE: Imaging protocol: XR of the chest. Views: 1 view. COMPARISON: CR (CHEST, ) 04/22/2021 5:22 AM FINDINGS: Tubes, catheters and devices: A tracheostomy tube projects over the tracheal air column. Right sided PICC is in satisfactory position, with distal tip at the SVC/RA junction. Lungs: Low lung volumes. Persistent bilateral airspace opacities. No large pleural effusion or pneumothorax. Pleural spaces: See Lungs finding. Heart/Mediastinum: Stable cardiomediastinal silhouette. Bones/joints: No acute osseous injury identified. Degenerative changes of the spine seen. XR/XR chest 1V portable [id number] IMPRESSION: Persistent bilateral airspace opacities.
[2021-04-23] MEDS: budesonide 0.5 mg/2 mL Neb INHALATION ×2 (07:57→20:11)
--- NOTE | 2021-04-23 08:23 | PC.CHAP ---
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 water safety teacher visit [] Patient/Family/Request visit [] Outpatient visit [] Follow-up visit [] Physician referral [] Code/Alert x[x] Routine visit [] Staff referral [] Actively dying [] Patient sleeping [] Family support [] [] Out of room [] Palliative care [] [] Receiving care in room [] Pre-surgical visit [] Trauma [] Long length of stay [x] ICU visit [] Other: Relational/Emotional Strength [] Patient feels connected with others/family/visitors/staff [] Distress [] Loneliness/isolation [] Abandonment Spirituality of Patient [] Person of [place] [] Attends Anabaptism of their [place] [] Believes in Prayer [] Reads Bible or Gnosticism materials [] There are Spiritual issues to be addressed Manager Sound Interventions [x] Prayer [] Active listening [] Non-anxious presence [] Spiritual/emotional support [] Crisis/trauma care [] Spiritual counseling [] Bereavement support [] Provided bereavement packet [] Provided Bible/devotional materials [] Provided toy/stuffed animal, coloring book to patient or family member [] Provided Communion [] Anointing/[place] [] Salvation [x] Completed spiritual assessment [] Other: Impact on Illness or Injury [] Angry [] Fearful [] Anxious [] Often cries [] Exhaustion [] Unable to work [] Unable to attend restorationism [] Unable to walk/stand [] Unable to read [] Unable to drive [] Unable to eat/drink [] Unable to sleep [] Unable to be with family [] Patient intubated [] Other: Summary patient continues to struggle... Time spent with patient 10 min
[2021-04-23] MEDS: thiamine 100 mg Tablet PO (09:05)
[2021-04-23] MEDS: folic acid 1 mg Tablet PO (09:05)
[2021-04-23] MEDS: quetiapine 100 mg Tablet 50 MG PO ×2 (09:06→17:00)
[2021-04-23] MEDS: guaiFENesin 600 mg Tablet PO ×2 (09:06→17:00)
[2021-04-23] MEDS: aspirin 81 mg EC Tablet PO (09:06)
[2021-04-23] MEDS: ferrous gluconate 324 mg Tablet PO ×2 (09:06→17:00)
[2021-04-23] MEDS: multivitamin therapeutic Tablet 1 TAB PO (09:06)
[2021-04-23] MEDS: sennosides 8.6 mg Tablet 17.2 MG PO ×2 (09:06→17:00)
[2021-04-23] MEDS: fentaNYL 25 mcg Patch 1 PATCH TRANSDERMA (09:07)
[2021-04-23] MEDS: enoxaparin 80 mg/0.8 mL Syringe SUBCUT ×2 (09:08→21:52)
--- NOTE | 2021-04-23 09:17 | PC.OT ---
OT NOTE: OT TREATMENT ATTEMPTED. PER NURSING; HOLD SECONDARY TO CODE ON FRIDAY AND PATIENT NOT DOING WELL TODAY. WILL ATTEMPT AGAIN TOMORROW.
[2021-04-23] MEDS: bumetanide 0.25 mg/mL SDV 4 mL 1 MG IV (12:16)
[2021-04-23 12:37] LABS: Alanine Aminotransferase 31 U/L (0-41); Albumin Level 2.7 g/dL (3.5-5.2); Alkaline Phosphatase 132 IU/L (40-130); Aspartate Amino Transferase 66 U/L (0-40); Blood Urea Nitrogen 22 mg/dL (8-23); C Reactive Protein 86.9 mg/L (0.0-4.9); Calcium 7.5 mg/dL (8.5-10.5); Carbon Dioxide 32 mmol/L (22-29); Chloride 78 mmol/L (98-107); Globulin 3.9 g/dL (1.3-4.6); Glomerular Filtration Rate 44.2 mL/min (90-130); Glucose 117 mg/dL (65-115); Magnesium 1.6 mg/dL (1.7-2.3); Osmolality Calculated 260 mOsm/kg (285-295); Phosphorus 4.1 mg/dL (2.5-4.5); Sodium 123 mmol/L (136-145); Total Bilirubin 0.8 mg/dL (0.15-1.2); Total Protein 6.6 g/dL (6.6-8.7)
[2021-04-23 12:39] LABS: Anion Gap 16.4 (5-19); Potassium 3.4 mmol/L (3.5-5.1)
[2021-04-23] MEDS: amiodarone 200 mg Tablet 400 MG PO ×2 (13:27→17:00)
[2021-04-23] MEDS: metOLazone 5 MG Tablet 10 MG PO (13:27)
[2021-04-23] MEDS: magnesium sulfate premix 2 GM/50 ML PIGGYBACK IV (13:28)
[2021-04-23] MEDS: lidocaine 1% 5 ML in potassium chloride premix 100 ML 25 ML IV (14:30)
--- NOTE | 2021-04-23 15:05 | PC.RESP ---
RT Shift Note Frequent safety and respiratory rounds continue. Orders completed as indicated. Patient monitored pre and post treatments throughout shift. Patient [Did.] tolerate treatments appropriately. Condition [DidNotChange]. Patient and/or small business sales representative educated on respiratory treatment and medications. Patient and/or small business sales representative [unable to comprehend]. Will continue to monitor patient progress.
[2021-04-23] MEDS: levofloxacin-dextrose 5 % 750 MG/150 ML PREMIX 100 MG IV (15:47)
--- NOTE | 2021-04-23 16:30 | P.PN_ITS ---
Subjective Subjective: Interval history: No acute events overnight, patient remains intubated, sedated on propofol, 20 of Levophed, 0.4 of vasopressin, afebrile overnight, continues to have good urine output, continues to be A. fib, rate well controlled remains on amiodarone Vitals/I&O/Wt Last Vital Signs Temp 98.9 F 04/23/21 16:00 Pulse 87 04/23/21 16:00 Resp 25 H 04/23/21 16:00 BP 122/99 04/23/21 16:00 Pulse Ox 91 04/23/21 16:00 04/23/21 04/23/21 04/23/21 06:59 14:59 22:59 Intake Total 949.867 / 3617.576 1384.673 / 1384.673 100 / 1484.673 Output Total 2350 / 3750 Balance -1400.133 / -331.756 4463.673 / 1384.673 100 / 1484.673 Weight last 48 hrs Weight 87.345 kg Weight 88.479 kg Physical Exam Narrative: EXAM NARRATIVE: Intubated, sedated, on mechanical ventilation Const: COMMON NORMALS: no acute distress Eye: OTHER: Pupils pinpoint, minimally reactive to light Resp: COMMON NORMALS: normal respiratory effort, No retractions and No use of accessory muscles AUSCULTATION: crackles Cardio: COMMON NORMALS: regular rate, S1 normal heart sound present and S2 normal heart sound present RATE: regular rate RHYTHM: abnormal rhythm HEART SOUNDS: S1 normal heart sound present and S2 normal heart sound present GI: COMMON NORMALS: Normal to inspection, nondistended, normoactive bowel sounds present, Soft to palpation and non-tender PALPATION: Yes Soft to palpation Extremity: COMMON NORMALS: no pedal edema Skin: NARRATIVE SKIN EXAM: Right abdomen, 1 x 1 cm area of induration, bruising Urinary Catheter Management^: Mullen: Cath Placed During This Visit: yes, but has since been removed by the nurse Reason for Continuing Indwelling Catheter: Accurate Measurement of Urinary Output in Critically Ill Patients Urinary Catheter Date of Insertion: 04/17/21 Urinary Catheter Time of Insertion: 02:54 Date Urinary Catheter Removed: 04/17/21 Time Urinary Catheter Discontinued: 02:53 Data : 04/23/21 03:15 04/23/21 11:25 Micro: Microbiology 04/22/21 11:08 Blood Culture - Preliminary Blood NEGATIVE TO DATE 04/22/21 11:04 Blood Culture - Preliminary Blood NEGATIVE TO DATE 04/22/21 14:20 Urine Culture - Preliminary Urine Catheterized 04/20/21 10:30 Gram Stain - Final Sputum - Endotracheal Tube Aspirate Sputum Culture - Final A&P Assessment and plan (1) PEA (Pulseless electrical activity): -Possibly secondary to pulmonary embolism and or acute flash pulmonary edema -With underlying acute hypoxic respiratory failure secondary to COVID-19 pneumonia, acute respiratory distress syndrome, status post tracheostomy, status post percutaneous gastrostomy tube placement -Status post CPR -PEA -Return of circulation -EKG shows slight ST-T wave changes in inferior leads, discussed with cardiology, no evidence of acute DE, baseline troponin I 04, 120-minute, 98.33, 6hour 131.6, delta 27.6 -repeat echo Moderately decreased left ventricular systolic function. Left ventricular ejection fraction is estimated at 40 %. Global left ventricular hypokinesis. Grade I/IV diastolic dysfunction (abnormal relaxation filling pattern), normal to mildly elevated filling pressures. -BNP over 25,000, positive over 10 L -Creatinine 1.6 -Bilateral lower extremity ultrasound negative for DVT -CT angiogram cannot be performed due to creatinine -Currently on therapeutic Lovenox -Chest x-ray continues to show pulmonary vascular congestion, BMP over the 25,000, +10 L, continue Bumex 1 mg every 12 hours, with metolazone, monitor creatinine, monitor urine output -There is a risk that he might require CRRT, I discussed this with the patient's , she tells me that she did not discuss it with the rest of the family members -Septic shock on broad-spectrum antibiotic therapy, pressor therapy, will do waters CT scan -continue Levaquin, vancomycin, Primaxin, caspofungin -Given persistent low-grade fevers, will do waters CT scan of chest abdomen pelvis, CT scan head -Follow blood cultures, sputum cultures -Hemoglobin 8.0, status post 1 unit PRBC, monitor hemoglobin -Currently on 20 Levophed, 0.04vasopressin, maintain MAP greater than 75 -Hold fluid due to concerns for fluid overload -For A. fib with RVR, received amiodarone bolus, currently on amiodarone drip, transition off amiodarone drip, start Cardizem 60 every 6, amiodarone 400 twice daily -Ventilator, 85% % FiO2, continue ventilatory support, resume sedation, minimize PEEP, minimize FiO2 -ABG pH 7.4, PCO2 59.6, PO2 50.2, bicarb 37, on 85% -Hyponatremia, 123, will repeat in the afternoon, if remains low, will start on hypertonic saline -Currently does not follow commands, pupils minimally reactive to light -Continue fentanyl patch -Fentanyl, propofol for sedation -Hold tube feeds -Patient's family has made him DNR -Protonix 40 IV twice daily, Carafate -Therapeutic Lovenox -Status is critical, prognosis is guarded Status: Acute (2) Atrial fibrillation and flutter: Status: Acute (3) Hypoxemia: Hypoxia persists. Secondary to COVID-19 pneumonia, acute respiratory distress syndrome, FiO2 requirement up to 100%. Noted thrombophlebitis with thrombus within cephalic vein of left forearm. Continue cefepime, vancomycin. Sputum cultures were repeated 04/14. He has completed his course of remdesivir, and dexamethasone Initial antibiotic course of azithromycin, ceftriaxone. Tracheostomy performed late April 11 PEG tube was placed 04/13. Arrangements also underway for placement to long-term care. Status: Acute (4) COVID-19: Severe COVID-19 with ARDS. As above. Status: Acute (5) Ischemic cardiomyopathy: Status: Acute (6) Acute kidney injury: Status: Acute (7) Hyponatremia: Status: Acute (8) Atherosclerosis of coronary artery of [place] heart without angina pectoris: Continue cardiac medications. Status: Acute Qualifiers: Coronary Disease-Associated Artery/Lesion type: unspecified vessel or lesion type Qualified Code(s): I25.10 - Atherosclerotic heart disease of [place] coronary artery without angina pectoris (9) Dyslipidemia: Status: Acute (10) Benign essential HTN: Status: Acute (11) Neck mass: Indeterminate left neck mass measuring nearly 3 cm in size, does not appe ar to originate from the thyroid. CT scan neck demonstrated no mass Status: Acute (12) Fever: Recurrence. See notation above. Status: Acute (13) Septic shock: Status: Acute Additional A&P Information He has 2 sites with yeast, with last sputum culture growing Mary albicans. If nothing changes caspofungin could be downgraded to fluconazole in several days. Attestations Medical Necessity Statement*: Patient requires hospitalization for acute respiratory failure sec to COVID-19, status post PEA, A. fib, fluid overload Coding Level of Care Code Acute Enterprise Account Manager for Chg Fwd Diagnoses PEA (Pulseless electrical activity) I46.9 Atrial fibrillation and flutter I48.91; I48.92 Hypoxemia R09.02 COVID-19 U07.1 Ischemic cardiomyopathy I25.5 Acute kidney injury N17.9 Hyponatremia E87.1 Atherosclerosis of coronary artery of [place] heart without angina pectoris I25.10 Coronary Disease-Associated Artery/Lesion type: unspecified vessel or lesion type Dyslipidemia E78.5 Benign essential HTN I10 Neck mass R22.1 Fever R50.9 Septic shock A41.9; R65.21
[2021-04-23 17:00] LABS: Basophils % 0.3 %; Eosinophils # 1.5 10^3/uL (0.0-0.8); Hematocrit 25.5 % (42.0-52.0); Hemoglobin 8.7 g/dL (11.7-16.6); Lymphocytes % 9.6 %; Mean Corpuscular HGB Conc 34.1 g/dL (30.0-36.0); Mean Corpuscular Hemoglobin 33.5 pg (28.0-34.0); Mean Corpuscular Volume 98.1 fl (80-94); Mean Platelet Volume 10.3 fL (7.4-10.4); Monocytes # 0.7 10^3/uL (0.2-0.9); Monocytes % 6.4 %; Neutrophils % 65.3 %; Nucleated Red Blood Cells % 0 %; Platelet Count 507 10^3/cmm (130-400); Red Cell Distribution Width 13.2 % (12.1-15.1); White Blood Count 10.7 10^3/uL (4.0-10.0)
[2021-04-23 17:24] LABS: Anion Gap 15.4 (5-19); Blood Urea Nitrogen 26 mg/dL (8-23); Calcium 7.5 mg/dL (8.5-10.5); Carbon Dioxide 35 mmol/L (22-29); Chloride 74 mmol/L (98-107); Glomerular Filtration Rate 41.2 mL/min (90-130); Glucose 117 mg/dL (65-115); Osmolality Calculated 258 mOsm/kg (285-295); Potassium 3.4 mmol/L (3.5-5.1); Sodium 121 mmol/L (136-145)
[2021-04-23] MEDS: sodium chloride 1 gm Tablet PO (20:00)
[2021-04-23] MEDS: atorvastatin 40 mg Tablet PO (20:00)
[2021-04-23] MEDS: norepinephrine 8 MG in dextrose 5 % 500 ML 68.58 MG IV (22:42)
[2021-04-24] VITALS (64 sets, daily range): BP systolic 101–127; BP diastolic 59–76; PULSE 70–84; RESP 20–32; TEMP 36.2–36.8; O2SAT 87–100
[2021-04-24] MEDS: ipratropium-albuterol 3 mL Neb INHALATION ×7 (00:08→23:43)
[2021-04-24] MEDS: dilTIAZem 60 mg Tablet PO ×4 (01:17→19:47)
[2021-04-24] MEDS: propofol 1,000 MG/100 ML INJ 23.32 MG IV ×4 (01:22→16:07)
[2021-04-24] MEDS: pantoprazole 40 mg SDV IVP ×2 (03:53→15:57)
--- NOTE | 2021-04-24 04:45 | PC.NURSE ---
Shift Note Frequent safety and comfort rounds continue. Orders and/or nursing care completed as indicated. Patient monitored for response to intervention and treatment(s). Education provided includes trach care, positioning, and respiratory exercises. Patient and/or fundraising sale representative reinforcement needed. Will continue to monitor.
[2021-04-24 05:04] LABS: ABG PCO2 55.1 mmHg (35-45); ABG PH Result 7.45 (7.35-7.45); Arterial Blood Gas Hematocrit 20.5 % (42-52); Blood Gas Allen Test Pos; Blood Gas Operator Identificat JB; Blood Gas Sample Site Radial, right; Blood Gas Sample Type Arterial; HCO3 ABG 38.3 mmol/L (22-26); Oxygen Device VENT; PO2 ABG 59.3 mmHg (80.0-100.0)
[2021-04-24 05:56] LABS: Hematocrit 24.6 % (42.0-52.0); Hemoglobin 8.5 g/dL (11.7-16.6); Mean Corpuscular HGB Conc 34.6 g/dL (30.0-36.0); Mean Corpuscular Hemoglobin 33.1 pg (28.0-34.0); Mean Corpuscular Volume 95.7 fl (80-94); Mean Platelet Volume 10.5 fL (7.4-10.4); Platelet Count 522 10^3/cmm (130-400); Red Blood Count 2.57 10^6/uL (4.1-5.3); Red Cell Distribution Width 12.7 % (12.1-15.1); White Blood Count 9.1 10^3/uL (4.0-10.0)
[2021-04-24] MEDS: sucralfate 1 gm Tablet PO ×4 (06:02→21:26)
[2021-04-24 06:07] LABS: Lactate (Lactic Acid level) 1.1 mmol/L (0.5-2.2)
[2021-04-24 06:17] LABS: Alanine Aminotransferase 19 U/L (0-41); Albumin Level 2.9 g/dL (3.5-5.2); Alkaline Phosphatase 109 IU/L (40-130); Aspartate Amino Transferase 55 U/L (0-40); Blood Urea Nitrogen 25 mg/dL (8-23); C Reactive Protein 101.8 mg/L (0.0-4.9); Calcium 7.4 mg/dL (8.5-10.5); Carbon Dioxide 35 mmol/L (22-29); Chloride 71 mmol/L (98-107); Globulin 3.4 g/dL (1.3-4.6); Glomerular Filtration Rate 38.6 mL/min (90-130); Glucose 101 mg/dL (65-115); Osmolality Calculated 247 mOsm/kg (285-295); Phosphorus 3.4 mg/dL (2.5-4.5); Total Bilirubin 0.8 mg/dL (0.15-1.2); Total Protein 6.3 g/dL (6.6-8.7)
[2021-04-24 06:28] LABS: Absolute Eosinophils 1.5 10^3/cmm (0.0-0.7); Absolute Neutrophil 6.3 10^3/cmm (1.4-6.5); Absolute Segmented Neutrophil 5.9 10/cmm (1.6-7.1); Anion Gap 12.9 (5-19); Band Neutrophils Absolute 0.4 10^3/cmm (0.0-1.2); Eosinophils 17 %; Lymphocytes 7 %; Lymphocytes Absolute 0.7 10^3/cmm (1.2-3.4); Monocytes Absolute 0.3 10^3/cmm (0.1-0.6); Platelet Estimate Increased (Normal); Segmented Neutrophils 65 %; Slide Review Slide Review Perform; Sodium 116 mmol/L (136-145); Total Cells Counted 100 (0-100)
[2021-04-24 06:29] LABS: Potassium 2.9 mmol/L (3.5-5.1)
[2021-04-24 07:07] LABS: D Dimer 2.89 ug/mIFEU (0-0.59); INR 1.08 (0.8-1.2)
[2021-04-24] MEDS: ferrous gluconate 324 mg Tablet PO ×2 (07:47→17:51)
[2021-04-24] MEDS: linezolid premix 600 MG/300 ML PREMIX 300 MG IV ×2 (07:47→19:47)
[2021-04-24 08:18] LABS: NT Pro B Type Natriuretic Pept 26977 pg/mL (0-125); Procalcitonin 0.83 ng/mL (0-0.5)
[2021-04-24 08:29] LABS: Creatine Phosphokinase 300 U/L (39-308)
[2021-04-24] MEDS: sodium chloride 3% 500 ML 30 ML IV (08:34)
[2021-04-24] MEDS: budesonide 0.5 mg/2 mL Neb INHALATION ×2 (09:19→20:00)
[2021-04-24 09:36] LABS: Sodium 113 mmol/L (136-145)
[2021-04-24] MEDS: multivitamin therapeutic Tablet 1 TAB PO (10:07)
[2021-04-24] MEDS: thiamine 100 mg Tablet PO (10:07)
[2021-04-24] MEDS: folic acid 1 mg Tablet PO (10:08)
[2021-04-24] MEDS: sennosides 8.6 mg Tablet 17.2 MG PO ×2 (10:10→17:51)
[2021-04-24] MEDS: quetiapine 100 mg Tablet 50 MG PO ×2 (10:10→17:51)
[2021-04-24] MEDS: guaiFENesin 600 mg Tablet PO ×2 (10:10→17:51)
[2021-04-24] MEDS: enoxaparin 80 mg/0.8 mL Syringe SUBCUT ×2 (10:23→21:26)
[2021-04-24] MEDS: aspirin 81 mg EC Tablet PO (10:23)
[2021-04-24] MEDS: amiodarone 200 mg Tablet 400 MG PO ×2 (11:09→17:51)
--- NOTE | 2021-04-24 11:21 | P.CONIM_ITS ---
Providers/Reason For Consult Consulting Physician/Specialty*: Nephrology Reason for Consult*: hypoNa and ADONIS Attending Physician: Charles Subramanian MD Primary Care Provider: Taina Zarate DO History of Present Illness History of Present Illness Thank you for consultation, today had the pleasure reviewing this unfortunate gentleman. He initially presented back on 03/27 because of oxygen desaturation, subsequently tested positive for COVID-19. Following hospitalization he has had [place] course but has subsequently required prolonged intubation, ventilation subsequently requiring tracheostomy. He also has a PEG tube placed now. He received combination therapy including remdesivir, Decadron. He is being covered with numerous antibiotics over the course of his hospital stay. More recently he has had persistent fevers since 04/09, recently changing cefepime to imipenem. The only positive culture was from sputum which identified Mary albicans and some yeast from the urine but otherwise blood cultures have been negative. Over the course of his hospitalization he received cefepime, imipenem, vancomycin, caspofungin, fluconazole and Rocephin. Other pertinent events include cardiac arrest on Friday. After this he developed atrial fibrillation. He remains in atrial fibrillation, blood pressure 121/68 with a heart rate of 75. He remains on combination vasopressor agents including vasopressin and Levophed. He remains globally edematous. He has been receiving combination diuretics including Bumex and metolazone the last few days. His ventilator settings remain relatively intense with FiO2 90% and PEEP of 8. Over the last few days his serum sodium has been drifting down, today 113. It was at normal levels until 04/22 when he drifted down to 131. Additionally his serum creatinine is also increasing to 1.8, again it was it normal levels until 04/21 when he started increasing to 1.3 mg/dL. His urine output yesterday was robust producing 2350 mL. Last exposure to intravenous contrast was back on 04/15. No other potentially nephrotoxic exposures Review of Systems General: Reports: ROS unobtainable due to endotracheal tube and ROS unobtainable due to medical condition Meds/Allergies Home Medications and Allergies Home Medications Medication Instructions Recorded Confirmed Last Taken Type atorvastatin 20 mg tablet 20 mg PO DAILY 10/30/20 03/27/21 12/21/20 History metoprolol succinate 50 mg 50 mg PO DAILY 10/30/20 03/27/21 12/21/20 History tablet,extended release 24 hr nitroglycerin 0.4 mg sublingual 0.4 mg SUBLINGUAL Q5M PRN 10/30/20 03/27/21 12/21/20 History tablet isosorbide mononitrate 30 mg 30 mg PO DAILY 30 Days #30 tab 12/28/20 03/27/21 Unknown Rx tablet,extended release 24 hr lisinopril 40 mg tablet 40 mg PO DAILY #30 tab 02/12/21 03/27/21 Unknown Rx aspirin [Aspir-81] 81 mg PO DAILY 03/27/21 03/27/21 Unknown History Allergies Allergy/AdvReac Type Severity Reaction Status Date / Time No Known Allergies Allergy Verified 03/26/21 10:34 Current Medications Current Medications Generic Name Dose Route Start Last Admin Trade Name Freq PRN Reason Stop Dose Admin Acetaminophen 650 mg 03/28/21 00:07 04/21/21 09:00 Acetaminophen 325 Mg Tablet PO 650 mg Q6H PRN Administration Mild/Mod Pain Or Temp >/= 101 Albuterol/Ipratropium 3 ml 04/01/21 12:00 04/24/21 09:19 Ipratropium-Albuterol 3 Ml Neb INHALATION 3 ml Q4H.RESPIRATORY STANLEY Administration Amiodarone HCl 400 mg 04/23/21 13:00 04/24/21 11:09 Amiodarone 200 Mg Tablet PO 400 mg BID ST[place]LEY Administration Aspirin 81 mg 03/28/21 09:00 04/24/21 10:23 Aspirin 81 Mg Ec Tablet PO 81 mg DAILY ST[place]LEY Administration Atorvastatin Calcium 40 mg 04/21/21 21:00 04/23/21 20:00 Atorvastatin 40 Mg Tablet PO 40 mg BEDTIME ST[place]LEY Administration Budesonide 0.5 mg 04/01/21 20:00 04/24/21 09:19 Budesonide 0.5 Mg/2 Ml Neb INHALATION 0.5 mg BID.RESPIRATORY ST[place]LEY Administration Bumetanide 1 mg 04/22/21 08:00 04/23/21 12:16 Bumetanide 0.25 Mg/Ml Sdv 4 Ml IV 1 mg Q12H ST[place]LEY Administration Diltiazem HCl 60 mg 04/22/21 08:00 04/24/21 07:47 Diltiazem 60 Mg Tablet PO 60 mg Q6H [place] Administration Enoxaparin Sodium 80 mg 04/21/21 22:00 04/24/21 10:23 Enoxaparin 80 Mg/0.8 Ml Syringe SUBCUT 80 mg Q12H ST[place] Administration Fentanyl 25 mcg 04/14/21 07:16 04/21/21 08:52 Fentanyl 50 Mcg/Ml Inj 2ml IVP 25 mcg Q4H PRN Administration SEVERE PAIN Fentanyl 1 patch 04/17/21 09:30 04/23/21 09:07 Fentanyl 25 Mcg Patch TRANSDERMA 1 patch Q72H ST[place]LEY Administration Ferrous Gluconate 324 mg 03/28/21 08:00 04/24/21 07:47 Ferrous Gluconate 324 Mg Tablet PO 324 mg BIDWM ST[place] Administration Folic Acid 1 mg 04/03/21 09:00 04/24/21 10:08 Folic Acid 1 Mg Tablet PO 1 mg DAILY ST[place]LEY Administration Guaifenesin 600 mg 04/18/21 18:00 04/24/21 10:10 Guaifenesin 600 Mg Tablet PO 600 mg BID [place] Administration Caspofungin 50 mg/ Sodium 250 mls @ 250 mls/hr 04/17/21 09:00 04/24/21 11:09 Chloride IV 200 mls/hr Q24H ST[place] Administration Norepinephrine Bitartrate 8 mg 508 mls @ 0 mls/hr 04/21/21 11:00 04/24/21 05:27 / Dextrose IV 10 mcg/min .Q0M ST[place]LEY 38.1 mls/hr Titration Protocol Per Protocol Vasopressin 40 unit/ Sodium 40 mls @ 0.03 mls/min 04/21/21 12:30 04/23/21 13:32 Chloride IV Infused CONT [facility] Infusion Levofloxacin/Dextrose 750 mg in 150 mls @ 100 mls/hr 04/21/21 15:00 04/23/21 19:10 Levaquin-D5w IV Infused Q24H [facility] Infusion Protocol Propofol 1,000 mg in 100 mls @ 0 mls/hr 04/21/21 14:45 04/24/21 11:09 Diprivan IV 45 mcg/kg/min .Q0M ST[place] 23.32 mls/hr Administration Protocol Per Protocol Albumin Human 25 gm in 100 mls @ 60 mls/hr 04/22/21 08:00 04/24/21 05:37 Albumin IV Infused Q8H [facility] Infusion Imipenem/Cilastatin Sodium 500 100 mls @ 200 mls/hr 04/22/21 17:00 04/24/21 10:22 mg/ Sodium Chloride IV 200 mls/hr Q8H [place] Administration Protocol Linezolid 600 mg in 300 mls @ 300 mls/hr 04/22/21 19:00 04/24/21 07:47 Zyvox Premix IV 300 mls/hr Q12H ST[place] Administration Protocol Sodium Chloride 500 mls @ 30 mls/hr 04/24/21 08:00 04/24/21 08:34 Sodium Chloride 3% IV 30 mls/hr .[id number] [place] Administration Conivaptan/Dextrose 20 mg in 100 mls @ 200 mls/hr 04/24/21 11:30 04/24/21 11:08 Vaprisol IV 04/24/21 11:59 200 mls/hr ONCE ONE Administration Lanolin 1 applic 04/14/21 11:34 04/16/21 08:03 Lanolin Oint 7 Gm TOPICAL 1 applic PRN PRN Administration DRYNESS Lorazepam 1 mg 04/14/21 11:33 04/21/21 07:58 Lorazepam 2 Mg/Ml Inj 1 Ml IVP 1 mg Q6H PRN Administration ANXIETY Metolazone 10 mg 04/23/21 12:55 04/23/21 13:27 Metolazone 5 Mg Tablet PO 10 mg DAILY ST[place]LEY Administration Multivitamins Therapeutic 1 tab 04/02/21 12:00 04/24/21 10:07 Multivitamin Therapeutic Tablet PO 1 tab DAILY [place] Administration Nystatin 1 applic 04/13/21 15:37 04/17/21 09:34 Nystatin Powder 15 Gm Btl TOPICAL 1 applic QID PRN Administration RASH Pantoprazole Sodium 40 mg 04/21/21 16:00 04/24/21 03:53 Pantoprazole 40 Mg Sdv IVP 40 mg Q12H ST[place] Administration Quetiapine Fumarate 50 mg 04/21/21 09:00 04/24/21 10:10 Quetiapine 100 Mg Tablet PO 50 mg BID [place] Administration Senna 17.2 mg 04/17/21 18:00 04/24/21 10:10 Sennosides 8.6 Mg Tablet PO 17.2 mg BID [place] Administration Sucralfate 1 gm 04/22/21 17:00 04/24/21 10:07 Sucralfate 1 Gm Tablet PO 1 gm AC&BEDTIME ST[place]LEY Administration Thiamine Mononitrate 100 mg 04/02/21 11:30 04/24/21 10:07 Thiamine 100 Mg Tablet PO 100 mg DAILY ST[place]LEY Administration PFSH Acute PFSH: Medical History (Updated 04/23/21 @ 16:36 by Charles Subramanian MD) Atherosclerosis of [place] coronary artery of [place] heart with stable angina pectoris BPH (benign prostatic hyperplasia) COVID-19 (~03/2021) Dyslipidemia (high LDL; low HDL) Essential hypertension History of hypertension Hx of chest pain Surgical History (Updated 04/22/21 @ 03:24 by Chikis Ferrell MD) History of PTCA S/P percutaneous endoscopic gastrostomy (PEG) tube placement (04/13/21) Status post tracheostomy (04/11/21) Family History Brother CAD (coronary artery disease) Lung disease Father CAD (coronary artery disease) Cancer Mother Diabetes Lung disease Denies family history of Clotting disorder Dementia Chronic kidney disease (CKD) Suicide Anesthesia complication Bleeding disorder Stroke Social History Smoking and tobacco status: former smoker Alcohol intake: current Alcohol intake frequency: 3 or more drinks per day Alcohol type: beer Housing: House Vitals/I&O/Wt Last Vital Signs Temp 98.0 F 04/24/21 07:33 Pulse 70 04/24/21 09:26 Resp 25 H 04/24/21 09:23 BP 113/66 04/24/21 07:33 Pulse Ox 92 04/24/21 09:23 04/23/21 04/24/21 04/24/21 22:59 06:59 14:59 Intake Total 2411 / 3795.673 794.431 / 4590.104 100 / 100 Output Total 1100 / 1100 1250 / 2350 Balance 1311 / 2695.673 -455.569 / 2240.104 100 / 100 Weight last 48 hrs Weight 87.997 kg Weight 87.345 kg Physical Exam Narrative: EXAM NARRATIVE: Constitutional: Awake, comfortable HEENT: Wet mucosa, no jvp, non icteric Lungs: Bilaterally rales, wheezing, diminished CVS: S1 S2, no murmurs Abdo: Soft, BS ok Ext 4: Global anasarca, peripheral perfusion with no cyanosis Neurological: Sedated Urinary Catheter Management^: Mullen: Cath Placed During This Visit: yes, but has since been removed by the nurse Reason for Continuing Indwelling Catheter: Accurate Measurement of Urinary Output in Critically Ill Patients Urinary Catheter Date of Insertion: 04/17/21 Urinary Catheter Time of Insertion: 02:54 Date Urinary Catheter Removed: 04/17/21 Time Urinary Catheter Discontinued: 02:53 Data Micro: Micro: Microbiology 04/22/21 14:20 Urine Culture - Fi nal Urine Catheterize d 04/22/21 11:08 Blood Culture - Pr eliminary Blood NEGATIVE TO SEA E 04/22/21 11:04 Blood Culture - Pr eliminary Blood NEGATIVE TO SEA E A&P Additional A&P Information 1. Hyponatremia Likely to be multifactorial i.e. metolazone induced stimulation of ADH release as well as hemodynamic lability also leading to nonosmotic release of ADH. Given that he is hypervolemic i.e. with edema and infiltrate seen on chest x- ray, this limits our ability to give him normal saline. He is currently on a low-dose 3% infusion and I will give him a dose of conivaptan today as well. Risk of demyelination is very low given the acute drop in his sodium over the last few days. Goal will be to increase by 8-10 over the next 24 hours Limited evaluation to include random cortisol level, urine and serum osmolality and urine sodium. TSH historically checked and is normal. Hold thiazide diuretics. Okay to use loop diuretics if needed. 2. Acute kidney injury In the setting of Covid pneumonitis this is becoming ever more common. It is a multifaceted acute kidney injury, that likely relates more to the inflammatory milieu causing acute tubular injury, renal hypoperfusion as well as tissue hypoxia. In the minority of cases we also see primary glomerulopathy associated with Covid viremia. Continue supportive care including vasopressor agents to support MAP greater than 65 mmHg Limit IV fluids given dense Covid pneumonitis Strict I's and O's No need for abdominal imaging given the ultrasound scan was performed on 04/20 Urinalysis with fractional excretion of sodium requested Daily renal panel, strict I's and O's No indication for renal replacement therapy at this time Dose medication for GFR less than 30 3. Covid pneumonitis Currently on trach with high ventilator settings. Status post remdesivir and Decadron, currently receiving combination antibiotic therapy as well. 4. Hemodynamics Atrial fibrillation with RVR since cardiac arrest Amiodarone and diltiazem on board Currently receiving vasopressor support with vasopressin and Levophed to be titrated by ICU team Multisystem organ failure in the setting of Covid pneumonitis with renal involvement, progressively becoming prognostically poor. Ongoing discussions of goals of care with family members. Stuart Keane MD Nephrology [phone] Patient seen and examined via telemedicine, with the assistance of the bedside RN > 25 min spent in evaluation and mgmt of patient Coding Level of Care Code Acute Impregnator Electrolytic Capacitors for Kris Ellis
[2021-04-24 13:15] LABS: Sodium 114 mmol/L (136-145)
--- NOTE | 2021-04-24 13:34 | PC.OT ---
PER NURSING, CONTINUE TO HOLD. PLANS FOR COMFORT CARE MEETING TOMORROW.
[2021-04-24 13:53] LABS: Cortisol Random 9.06 ug/dL (2.47-19.5); Thyroid Stimulating Hormone 2.12 uIU/mL (0.27-4.20)
[2021-04-24] MEDS: levofloxacin-dextrose 5 % 750 MG/150 ML PREMIX 100 MG IV (15:56)
[2021-04-24] MEDS: lidocaine 1% 5 ML in potassium chloride premix 100 ML 25 ML IV (15:57)
--- NOTE | 2021-04-24 16:07 | PC.NUTR ---
Tube feeding recommendations: Feedings remain held at this time (since 04/21/21). Is receiving 563 kcal/day via multiple medications provided in D5W at this time. Per MD, TF not to be restarted until after comfort care meeting with family. If feedings resumed, recommend resuming previous formula and rate as tolerated, and if to be on TF piano regulator, consider gradual increase to goal of 70 ml/hr to better meet nutritional needs. See full RD assessment for further details.
--- NOTE | 2021-04-24 17:00 | P.PN_ITS ---
Subjective Subjective: Interval history: Patient was seen this morning, remains intubated, sedated, PEG tube feedings on hold, remains on 2 pressors Levophed, vasopressin, but titrating down, normotensive, FiO2 down to 75%, has had good urine output, afebrile overnight Vitals/I&O/Wt Last Vital Signs Temp 98.3 F 04/24/21 14:00 Pulse 78 04/24/21 15:53 Resp 32 H 04/24/21 15:50 BP 113/62 04/24/21 14:00 Pulse Ox 91 04/24/21 15:50 04/24/21 04/24/21 04/24/21 06:59 14:59 22:59 Intake Total 794.431 / 4590.104 850 / 850 100 / 950 Output Total 1250 / 2350 Balance -455.569 / 2240.104 850 / 850 100 / 950 Weight last 48 hrs Weight 87.997 kg Weight 87.345 kg Physical Exam Narrative: EXAM NARRATIVE: Intubated, sedated, pupils upward glancing Eye: OTHER: Bilateral pupils pinpoint, reactive to light Neck/C-Spine: OTHER: Tracheostomy in place Resp: COMMON NORMALS: normal respiratory effort, No retractions and No use of accessory muscles AUSCULTATION: crackles and wheezes Cardio: COMMON NORMALS: regular rate, S1 normal heart sound present and S2 normal heart sound present RATE: regular rate RHYTHM: abnormal rhythm HEART SOUNDS: S1 normal heart sound present and S2 normal heart sound present GI: COMMON NORMALS: Normal to inspection, nondistended, normoactive bowel sounds present and Soft to palpation PALPATION: Yes Soft to palpation OTHER: PEG tube in place Extremity: COMMON NORMALS: capillary refill normal and no pedal edema Urinary Catheter Management^: Mullen: Cath Placed During This Visit: yes, but has since been removed by the nurse Reason for Continuing Indwelling Catheter: Accurate Measurement of Urinary Output in Critically Ill Patients Urinary Catheter Date of Insertion: 04/17/21 Urinary Catheter Time of Insertion: 02:54 Date Urinary Catheter Removed: 04/17/21 Time Urinary Catheter Discontinued: 02:53 Data : 04/24/21 04:50 04/24/21 11:40 Micro: Microbiology 04/19/21 10:40 Blood Culture - Final Blood NO GROWTH AFTER 5 DAYS 04/19/21 10:47 Blood Culture - Final Blood NO GROWTH AFTER 5 DAYS 04/22/21 14:20 Urine Culture - Final Urine Catheterized 04/22/21 11:08 Blood Culture - Preliminary Blood NEGATIVE TO DATE 04/22/21 11:04 Blood Culture - Preliminary Blood NEGATIVE TO DATE A&P Assessment and plan (1) PEA (Pulseless electrical activity): -Possibly secondary to pulmonary embolism and or acute flash pulmonary edema -With underlying acute hypoxic respiratory failure secondary to COVID-19 pneumonia, acute respiratory distress syndrome, status post tracheostomy, status post percutaneous gastrostomy tube placement -Status post CPR -PEA -Return of circulation -EKG shows slight ST-T wave changes in inferior leads, discussed with cardiology, no evidence of acute SC, baseline troponin I 04, 120-minute, 98.33, 6hour 131.6, delta 27.6 -repeat echo Moderately decreased left ventricular systolic function. Left ventricular ejection fraction is estimated at 40 %. Global left ventricular hypokinesis. Grade I/IV diastolic dysfunction (abnormal relaxation filling pattern), normal to mildly elevated filling pressures. -BNP over 26,000, 12 L positive -Creatinine 1.8 -Bilateral lower extremity ultrasound negative for DVT -CT angiogram cannot be performed due to creatinine -Currently on therapeutic Lovenox -With hyponatremia, likely secondary to diuretic, SIADH with sepsis: Currently on hypertonic saline at 30 cc an hour, conivaptan, nephrology on consult -Continues to be fluid overloaded, chest x-ray continues to show pulmonary vascular congestion, BMP over the 26,000, + 12 L, however given hyponatremia as above, holding Bumex 1 mg every 12 hours, holding metolazone, monitor creatinine, monitor urine output -There is a risk that he might require CRRT, I discussed this with the patient's , she tells me that she did not discuss it with the rest of the family members -Septic shock on broad-spectrum antibiotic therapy, on pressor therapy, hopefully will do waters CT scan -continue Levaquin, vancomycin, Primaxin, caspofungin -No fevers, but will plan on CT scan of chest abdomen pelvis, CT scan head -Follow blood cultures, sputum cultures so far unremarkable -Hemoglobin 8.5, status post 1 unit PRBC, monitor hemoglobin -Currently on Levophed, vasopressin, maintain MAP greater than 75 -Hold fluid due to concerns for fluid overload -For A. fib with RVR, currently on p.o. Cardizem 60 every 6 hours, amiodarone 400 twice daily -Ventilator, 75% % FiO2, continue ventilatory support, resume sedation, minimize PEEP, minimize FiO2 -ABG pH 7.45, PCO2 55.1, PO2 59.3, bicarb 38.3 with an FiO2 of 80%, tidal volume 400, PEEP of 8 -Currently does not follow commands, pupils reactive to light -Continue fentanyl patch -Fentanyl, propofol for sedation -Hold tube feeds -Patient's family has made him DNR -Protonix 40 IV twice daily, Carafate -Therapeutic Lovenox -Status is critical, prognosis is guarded Plan for today, continue hypertonic saline, conivaptan, continue antibiotics, will do waters CT scan, possible family meeting in the next 24 to 48 hours about goals of care Status: Acute (2) Atrial fibrillation and flutter: Status: Acute (3) Hypoxemia: Hypoxia persists. Secondary to COVID-19 pneumonia, acute respiratory distress syndrome, FiO2 requirement up to 100%. Noted thrombophlebitis with thrombus within cephalic vein of left forearm. Continue cefepime, vancomycin. Sputum cultures were repeated 04/14. He has completed his course of remdesivir, and dexamethasone Initial antibiotic course of azithromycin, ceftriaxone. Tracheostomy performed late April 11 PEG tube was placed 04/13. Arrangements also underway for placement to long-term care. Status: Acute (4) COVID-19: Severe COVID-19 with ARDS. As above. Status: Acute (5) Ischemic cardiomyopathy: Status: Acute (6) Acute kidney injury: Status: Acute (7) Hyponatremia: Status: Acute (8) Atherosclerosis of coronary artery of [place] heart without angina pectoris: Continue cardiac medications. Status: Acute Qualifiers: Coronary Disease-Associated Artery/Lesion type: unspecified vessel or lesion type Qualified Code(s): I25.10 - Atherosclerotic heart disease of [place] coronary artery without angina pectoris (9) Dyslipidemia: Status: Acute (10) Benign essential HTN: Status: Acute (11) Neck mass: Indeterminate left neck mass measuring nearly 3 cm in size, does not appear to originate from the thyroid. CT scan neck demonstrated no mass Status: Acute (12) Fever: Recurrence. See notation above. Status: Acute (13) Septic shock: Status: Acute Additional A&P Information \ Attestations Medical Necessity Statement*: Patient requires hospitalization for acute respiratory failure secondary COVID-19, PE, A. fib, now with hyponatremia, concerns for secondary bacterial pneumonia, fungal pneumonia Coding Level of Care Code Acute Radio Officer for Chg Fwd Diagnoses PEA (Pulseless electrical activity) I46.9 Atrial fibrillation and flutter I48.91; I48.92 Hypoxemia R09.02 COVID-19 U07.1 Ischemic cardiomyopathy I25.5 Acute kidney injury N17.9 Hyponatremia E87.1 Atherosclerosis of coronary artery of [place] heart without angina pectoris I25.10 Coronary Disease-Associated Artery/Lesion type: unspecified vessel or lesion type Dyslipidemia E78.5 Benign essential HTN I10 Neck mass R22.1 Fever R50.9 Septic shock A41.9; R65.21
[2021-04-24 17:21] LABS: Sodium 117 mmol/L (136-145)
[2021-04-24 17:24] LABS: Urine Random Sodium 52 mmol/L
--- NOTE | 2021-04-24 18:52 | PC.NURSE ---
Shift Note Frequent safety and comfort rounds continue. Orders and/or nursing care completed as indicated. Patient monitored for response to intervention and treatment(s). Education provided includes trach settings on vent. Patient and/or congressional representative verbalize understanding. Will continue to monitor. Pt's Patito has asked for a meeting with Dr Subramanian tomorrow at [address]. Dr Subramanian agreed and the time is confirmed with him and family.
[2021-04-24] MEDS: atorvastatin 40 mg Tablet PO (21:26)
[2021-04-24 21:34] LABS: Sodium 116 mmol/L (136-145)
[2021-04-24] MEDS: propofol 1,000 MG/100 ML INJ 18.13 MG IV (21:38)
--- NOTE | 2021-04-24 22:18 | PC.NURSE ---
Critical Lab-Sodium Critical sodium level of 116 called by lab at 2133. Dr. Ramirez notified as well as Dr. Keane. Dr. Keane gave orders to increase the 3% sodium chloride to 40 ml/hour and notify him if the sodium level became less than 113 or greater than 126.
[2021-04-24 23:57] LABS: Sodium 118 mmol/L (136-145)
[2021-04-25] VITALS (72 sets, daily range): BP systolic 88–125; BP diastolic 50–82; PULSE 73–83; RESP 20–32; TEMP 35.8–36.7; O2SAT 84–97
[2021-04-25] MEDS: sodium chloride 3% 500 ML 40 ML IV (01:05)
[2021-04-25] MEDS: dilTIAZem 60 mg Tablet PO ×4 (01:31→20:07)
[2021-04-25] MEDS: propofol 1,000 MG/100 ML INJ 20.73 MG IV ×3 (02:28→12:17)
[2021-04-25] MEDS: norepinephrine 8 MG in dextrose 5 % 500 ML 30.48 MG IV (02:51)
--- NOTE | 2021-04-25 02:52 | PC.PHAR ---
Renal dosing for Primaxin 500 mg q8h changed to 250 mg q6h based on crcl 47.31
[2021-04-25] MEDS: ipratropium-albuterol 3 mL Neb INHALATION ×6 (03:03→23:35)
[2021-04-25 03:43] LABS: Basophils % 0.2 %; Eosinophils # 0.9 10^3/uL (0.0-0.8); Eosinophils % 10.6 %; Hematocrit 24.7 % (42.0-52.0); Hemoglobin 8.7 g/dL (11.7-16.6); Lymphocytes # 0.6 10^3/uL (0.8-4.8); Lymphocytes % 7.2 %; Mean Corpuscular HGB Conc 35.2 g/dL (30.0-36.0); Mean Corpuscular Volume 96.5 fl (80-94); Mean Platelet Volume 10.4 fL (7.4-10.4); Monocytes # 0.5 10^3/uL (0.2-0.9); Monocytes % 5.9 %; Neutrophils # 6.25 10^3/uL (1.8-7.7); Neutrophils % 71.6 %; Nucleated Red Blood Cells % 0 %; Platelet Count 447 10^3/cmm (130-400); Red Blood Count 2.56 10^6/uL (4.1-5.3); Red Cell Distribution Width 12.8 % (12.1-15.1); White Blood Count 8.7 10^3/uL (4.0-10.0)
[2021-04-25] MEDS: pantoprazole 40 mg SDV IVP ×2 (03:49→16:21)
[2021-04-25 03:54] LABS: INR 1.19 (0.8-1.2)
[2021-04-25 04:02] LABS: Alanine Aminotransferase 18 U/L (0-41); Albumin Level 2.5 g/dL (3.5-5.2); Alkaline Phosphatase 120 IU/L (40-130); Aspartate Amino Transferase 57 U/L (0-40); Blood Urea Nitrogen 19 mg/dL (8-23); C Reactive Protein 105.7 mg/L (0.0-4.9); Carbon Dioxide 30 mmol/L (22-29); Chloride 75 mmol/L (98-107); Globulin 2.7 g/dL (1.3-4.6); Glomerular Filtration Rate 44.2 mL/min (90-130); Glucose 190 mg/dL (65-115); Magnesium 1.6 mg/dL (1.7-2.3); Osmolality Calculated 249 mOsm/kg (285-295); Phosphorus 2.9 mg/dL (2.5-4.5); Total Bilirubin 0.9 mg/dL (0.15-1.2); Total Protein 5.2 g/dL (6.6-8.7)
[2021-04-25 04:19] LABS: Creatine Phosphokinase 155 U/L (39-308)
[2021-04-25 04:45] LABS: Anion Gap 14.1 (5-19); Potassium 3.1 mmol/L (3.5-5.1)
[2021-04-25 04:46] LABS: Procalcitonin 0.96 ng/mL (0-0.5); Sodium 116 mmol/L (136-145)
[2021-04-25 04:59] LABS: ABG PCO2 56.6 mmHg (35-45); ABG PH Result 7.41 (7.35-7.45); Arterial Blood Gas Hematocrit 45.1 % (42-52); Base Excess ABG 8.7 mmol/L (-2.0-2.0); Blood Gas Allen Test Pos; Blood Gas Sample Site Radial, right; Blood Gas Sample Type Arterial; HCO3 ABG 35.6 mmol/L (22-26); Oxygen Device VENT; PO2 ABG 68.6 mmHg (80.0-100.0)
[2021-04-25] MEDS: FUROsemide 10 mg/mL SDV 4mL 40 MG IVP ×2 (06:22→15:25)
[2021-04-25] MEDS: potassium chloride premix 100 ML 25 MEQ IV (06:23)
--- NOTE | 2021-04-25 07:00 | XR_ITS ---
WS: [id number] Portable AP semiupright chest, 04/25/2021 Clinical Data: sob Comparison: Portable chest, 04/23/2021. Findings: The right PICC line and the tracheal tube remain in the same position. The diffuse bilatera l pulmonary opacities have not changed. The heart is enlarged. Monitor leads are on the chest wall. XR/XR chest 1V portable [id number] Impression: 1. No change in endotracheal tube and right PICC line. 2. No change in diffuse bilateral pulmonary opacities consistent with pneumonia .
[2021-04-25] MEDS: sucralfate 1 gm Tablet PO ×4 (07:03→20:07)
--- NOTE | 2021-04-25 07:17 | PC.NURSE ---
Status change After a position change, patient's oxygen saturation dropped to low 70's. Dr. Ramirez notified, respiratory therapist turned FIO2 up to 100%. Patient's airway suctioned, and patient repositioned again to better maintain airway. New orders received and followed. Patient's oxygen saturation improved to mid 90's while FIO2 remaining at 100%. Oncoming shift nurses aware of situation.
--- NOTE | 2021-04-25 07:23 | PC.NURSE ---
Shift Note Frequent safety and comfort rounds continue. Orders and/or nursing care completed as indicated. Patient monitored for response to intervention and treatment(s). Patient remains to be mechanically ventilated and sedated and therefore unable to comprehend information. Will continue to monitor.
[2021-04-25] MEDS: budesonide 0.5 mg/2 mL Neb INHALATION ×2 (07:57→20:56)
[2021-04-25] MEDS: ferrous gluconate 324 mg Tablet PO ×2 (08:46→17:37)
[2021-04-25] MEDS: quetiapine 100 mg Tablet 50 MG PO ×2 (08:47→17:36)
[2021-04-25] MEDS: guaiFENesin 600 mg Tablet PO ×2 (08:47→17:36)
[2021-04-25] MEDS: sennosides 8.6 mg Tablet 17.2 MG PO ×2 (08:47→17:36)
[2021-04-25] MEDS: linezolid premix 600 MG/300 ML PREMIX 300 MG IV ×2 (08:47→20:08)
[2021-04-25] MEDS: folic acid 1 mg Tablet PO (08:47)
[2021-04-25] MEDS: aspirin 81 mg EC Tablet PO (08:47)
[2021-04-25] MEDS: multivitamin therapeutic Tablet 1 TAB PO (08:47)
[2021-04-25] MEDS: thiamine 100 mg Tablet PO (08:47)
[2021-04-25] MEDS: amiodarone 200 mg Tablet 400 MG PO (09:00)
--- NOTE | 2021-04-25 09:29 | PC.CHAP ---
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 air conditioning mechanic visit [] Patient/Family/Request visit [] Outpatient visit [] Follow-up visit [] Physician referral [] Code/Alert [x] Routine visit [] Staff referral [] Actively dying [] Patient sleeping [] Family support [] [] Out of room [] Palliative care [] [] Receiving care in room [] Pre-surgical visit [] Trauma [] Long length of stay [x] ICU visit [] Other: Relational/Emotional Strength [] Patient feels connected with others/family/visitors/staff [] Distress [] Loneliness/isolation [] Abandonment Spirituality of Patient [] Person of [place] [] Attends Congregation of their [place] [] Believes in Prayer [] Reads Bible or Alevism materials [] There are Spiritual issues to be addressed Junior Java Developer Interventions [x] Prayer [] Active listening [] Non-anxious presence [] Spiritual/emotional support [] Crisis/trauma care [] Spiritual counseling [] Bereavement support [] Provided bereavement packet [] Provided Bible/devotional materials [] Provided toy/stuffed animal, coloring book to patient or family member [] Provided Communion [] Anointing/Kirvin [] Salvation [x] Completed spiritual assessment [] Other: Impact on Illness or Injury [] Angry [] Fearful [] Anxious [] Often cries [] Exhaustion [] Unable to work [] Unable to attend orthodoxy [] Unable to walk/stand [] Unable to read [] Unable to drive [] Unable to eat/drink [] Unable to sleep [] Unable to be with family [] Patient intubated [] Other: Summary Time spent with patient
--- NOTE | 2021-04-25 10:02 | PC.OT ---
CONTINUE TO HOLD OT TREATMENT DUE TO FAMILY DISCUSSION REGARDING COMFORT CARE TODAY.
[2021-04-25] MEDS: enoxaparin 80 mg/0.8 mL Syringe SUBCUT ×2 (10:04→22:24)
--- NOTE | 2021-04-25 11:15 | P.PN_ITS ---
Subjective Subjective: Interval history: Remains minimally interactive. On pressors, Levo at 8, vaso off now. Urine output appears to be robust this morning with 1200mL of clear light jj urine in the bag. Medications: Reviewed: Yes Vitals/I&O/Wt Last Vital Signs Temp 97.4 F L 04/25/21 04:00 Pulse 77 04/25/21 10:00 Resp 28 H 04/25/21 10:05 BP 110/68 04/25/21 10:00 Pulse Ox 94 04/25/21 10:05 04/24/21 04/25/21 04/25/21 22:59 06:59 14:59 Intake Total 1402.5 / 2403.298 189.882 / 2593.180 607.92 / 607.92 Output Total 1500 / 1500 675 / 2175 1000 / 1000 Balance -97.5 / 903.298 -485.118 / 418.180 -392.08 / -392.08 Weight last 48 hrs Weight 89.358 kg Weight 87.997 kg Physical Exam Narrative: EXAM NARRATIVE: Constitutional: minimally interactive HEENT: Wet mucosa, no jvp, non icteric Lungs: Bilaterally rales, wheezing, diminished CVS: S1 S2, no murmurs Abdo: Soft, BS ok Ext 4: Global anasarca, peripheral perfusion with no cyanosis Neurological: Sedated Urinary Catheter Management^: Mullen: Cath Placed During This Visit: yes, but has since been removed by the nurse Reason for Continuing Indwelling Catheter: Accurate Measurement of Urinary Output in Critically Ill Patients Urinary Catheter Date of Insertion: 04/17/21 Urinary Catheter Time of Insertion: 02:54 Date Urinary Catheter Removed: 04/17/21 Time Urinary Catheter Discontinued: 02:53 Data : 04/25/21 03:32 04/25/21 03:32 Micro: Microbiology 04/19/21 10:40 Blood Culture - Final Blood NO GROWTH AFTER 5 DAYS 04/19/21 10:47 Blood Culture - Final Blood NO GROWTH AFTER 5 DAYS 04/22/21 14:20 Urine Culture - Final Urine Catheterized A&P Additional A&P Information 1. Hyponatremia Slow improvement this morning Likely to be multifactorial i.e. metolazone induced stimulation of ADH release as well as hemodynamic lability also leading to nonosmotic release of ADH. Received Conviaptan yesterday, plan on recheck lytes this morning given obvious diuresis we are now seeing Urine parameters reviewed including low urinary sodium and hypertonic urinalysis (Sp Gr 1.02), consistent with renal hyperoperfusion also playing a role Risk of demyelination is very low given the acute drop in his sodium over the last few days. Goal will be to increase by 8-10 over the next 24 hours Hold thiazide diuretics. Okay to use loop diuretics if needed. 2. Acute kidney injury Creatinine improving In the setting of Covid pneumonitis this is becoming ever more common. It is a multifaceted acute kidney injury, that likely relates more to the inflammatory milieu causing acute tubular injury, renal hypoperfusion as well as tissue hypoxia. In the minority of cases we also see primary glomerulopathy associated with Covid viremia. Continue supportive care including vasopressor agents to support MAP greater than 65 mmHg Limit IV fluids given dense Covid pneumonitis Strict I's and O's No need for abdominal imaging given the ultrasound scan was performed on 04/20 Daily renal panel, strict I's and O's No indication for renal replacement therapy at this time Dose medication for GFR less than 30 3. Covid pneumonitis Currently on trach with high ventilator settings. Status post remdesivir and Decadron, currently receiving combination antibiotic therapy as well. 4. Hemodynamics Atrial fibrillation with RVR since cardiac arrest Amiodarone and diltiazem on board Currently receiving vasopressor support withLevophed to be titrated by ICU team Multisystem organ failure in the setting of Covid pneumonitis with renal involvement, progressively becoming prognostically poor. 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
[2021-04-25 13:22] LABS: Blood Urea Nitrogen 20 mg/dL (8-23); Calcium 7.8 mg/dL (8.5-10.5); Carbon Dioxide 30 mmol/L (22-29); Chloride 80 mmol/L (98-107); Glomerular Filtration Rate 41.2 mL/min (90-130); Glucose 105 mg/dL (65-115); Osmolality Calculated 259 mOsm/kg (285-295); Sodium 123 mmol/L (136-145)
[2021-04-25 13:28] LABS: Anion Gap 16.2 (5-19); Potassium 3.2 mmol/L (3.5-5.1)
[2021-04-25] MEDS: lidocaine 1% 5 ML in potassium chloride premix 100 ML 50 ML IV (15:26)
[2021-04-25 15:27] LABS: Alanine Aminotransferase 21 U/L (0-41); Albumin Level 2.7 g/dL (3.5-5.2); Alkaline Phosphatase 128 IU/L (40-130); Aspartate Amino Transferase 66 U/L (0-40); Blood Urea Nitrogen 24 mg/dL (8-23); Calcium 7.5 mg/dL (8.5-10.5); Carbon Dioxide 31 mmol/L (22-29); Chloride 78 mmol/L (98-107); Globulin 3.4 g/dL (1.3-4.6); Glomerular Filtration Rate 38.6 mL/min (90-130); Glucose 100 mg/dL (65-115); Osmolality Calculated 254 mOsm/kg (285-295); Sodium 120 mmol/L (136-145); Total Bilirubin 0.8 mg/dL (0.15-1.2); Total Protein 6.1 g/dL (6.6-8.7)
[2021-04-25 15:52] LABS: Osmolality Serum 244 mOsm/kg (278-305)
[2021-04-25] MEDS: levofloxacin-dextrose 5 % 750 MG/150 ML PREMIX 100 MG IV (16:21)
[2021-04-25] MEDS: sodium chloride 3% 500 ML 30 ML IV (17:02)
--- NOTE | 2021-04-25 17:15 | PC.NURSE ---
Family meeting today at 1330, family wants to focus on comfort measures. Will await for rest of immediate family's arrival tomorrow and plan for full comfort measures around noon. Family did not want head CT.
--- NOTE | 2021-04-25 17:19 | P.PN_ITS ---
Subjective Subjective: Interval history: Patient was seen this morning, he remains on 90% FiO2, afebrile overnight, is down to 8 on Levophed, remains on propofol, continues to have a cough reflex, has pupillary reflexes, no significant meaningful responses on lower dose of propofol, your good urine output, serum sodium is improving to 123 The following discussion was made in front of nurse Rangel, with family -I met with patient's family, including 3 daughters, 2 sons, and patient's -I discussed patient's goals of care, and clinical progress -I discussed patient's COVID-19 diagnosis, COVID-19 pneumonia, acute respiratory distress syndrome, chronic ventilator dependence, high oxygen requirements, trach, PEG -Subsequent PEA, with septic shock,, recurrent fevers with concerns for fluid overload, possible pulmonary emboli -Currently patient does not have any meaningful responses on minimal sedation, does have primitive reflexes, does not withdraw from pain -Currently down to 9 of Levophed, serum sodiums are improving, urine output is improving, but is significantly fluid overloaded -Tube feeds are on hold as he is on high-dose pressors -I discussed patient's goals of care -We can certainly do a CT of the chest abdomen pelvis, to rule out underlying abscess, but as he is on 90% FiO2, there is a risk of clinical deterioration during any movement, family declines further CT imaging -We can certainly do a CT of the head, to ensure that he has not had a stroke, the like above there is a risk of clinical deterioration and during any movement, family declines any further CT imaging -Patient is multiple times expressed that this is not what her would have wanted, he is expressed to her explicitly that he would not want life-sustaining measures such as prolonged intubation, life support she tells me that there has been many instances in which they have seen people on ventilators and artificial life support and is explicitly told her that she would not want this done to be done to him ever -On the night of admission, when he was on to wait, tells me that he actually wanted to leave the hospital and go home and at home, that was his wish -She tells me that it was not his wish to live his life this way, but she did the best that she could, she wanted to give him a chance -I advised patient's family that certainly there is a possibility that we can get him more stabilized to get him to select, to give him time to see if he could have any significant neurologic recovery, respiratory recovery, but only with time we could give a definitive answer -Unfortunately do not do continues 24-hour EEG monitoring for brainwave activity, so I cannot empirically comment on the likelihood of his neurologic recovery, but as he does not have any significant meaningful responses since we have taken him off the ventilator, I feel that he likely will not have any significant neurologic recovery more specifically I do not think he will be back to his baseline level of functioning, I do not feel that he will carry all commands, he might be able to squeeze fingers, or maybe be able to nod, but I am not exactly sure if this is even possible, and I advised family that only time will tell, we would take him off sedation and see if he has any meaningful responses so far I have not seen any -Again patient's daughters, and sons explicitly told me that it was not their father's wish to live with a trach or PEG, one of his sons tells me that he would actually hate it -After discussing all the options are available to patient continue medical i nterventions versus pursuing comfort care, discussed the risk and benefits, all parties voiced understanding, all questions answered -Family has agreed to proceed with comfort care, however they would like to start comfort care measures tomorrow at noon when other family members can arrive -For now I will continue medical interventions, and will pursue full comfort care at roughly tomorrow at noon -I did advise family members that if he starts to deteriorate during the night, we will certainly call them and start comfort care if prudent -And if he starts to suffer, certainly we can try morphine, Ativan to decrease his suffering Vitals/I&O/Wt Last Vital Signs Temp 96.4 F L 04/25/21 16:00 Pulse 79 04/25/21 16:00 Resp 22 H 04/25/21 16:00 BP 112/65 04/25/21 16:00 Pulse Ox 92 04/25/21 16:00 04/25/21 04/25/21 04/25/21 06:59 14:59 22:59 Intake Total 189.882 / 2593.180 1078.176 / 1078.176 680.630 / 1758.806 Output Total 675 / 2175 1000 / 1000 1300 / 2300 Balance -485.118 / 418.180 78.176 / 78.176 -619.370 / -541.194 Weight last 48 hrs Weight 89.358 kg Weight 87.997 kg Physical Exam 2 Narrative: EXAM NARRATIVE: Intubated, sedated, on mechanical ventilation, Const: GENERAL APPEARANCE: ill appearing and frail appearing Resp: COMMON NORMALS: normal respiratory effort, No retractions and No use of accessory muscles AUSCULTATION: crackles Cardio: COMMON NORMALS: regular rate, regular rhythm, S1 normal heart sound present and S2 normal heart sound present RATE: regular rate RHYTHM: regular rhythm HEART SOUNDS: S1 normal heart sound present and S2 normal heart sound present GI: COMMON NORMALS: Normal to inspection, nondistended, normoactive bowel sounds present, Soft to palpation and non-tender PALPATION: Yes Soft to palpation Extremity: COMMON NORMALS: no pedal edema Urinary Catheter Management^: Mullen: Cath Placed During This Visit: yes, but has since been removed by the nurse Reason for Continuing Indwelling Catheter: Accurate Measurement of Urinary Output in Critically Ill Patients Urinary Catheter Date of Insertion: 04/17/21 Urinary Catheter Time of Insertion: 02:54 Date Urinary Catheter Removed: 04/17/21 Time Urinary Catheter Discontinued: 02:53 Data : 04/25/21 03:32 04/25/21 14:39 A&P Assessment and plan (1) PEA (Pulseless electrical activity): -Continue nonaggressive medical interventions for now, pursuing full comfort care tomorrow at noon -If he starts to deteriorate during the night, can talk to family members about pursuing full comfort care -Possibly secondary to pulmonary embolism and or acute flash pulmonary edema -With underlying acute hypoxic respiratory failure secondary to COVID-19 pneumonia, acute respiratory distress syndrome, status post tracheostomy, status post percutaneous gastrostomy tube placement -Status post CPR -PEA -Return of circulation -EKG shows slight ST-T wave changes in inferior leads, discussed with cardiology, no evidence of acute HI, baseline troponin I 04, 120-minute, 98.33, 6hour 131.6, delta 27.6 -repeat echo Moderately decreased left ventricular systolic function. Left ventricular ejection fraction is estimated at 40 %. Global left ventricular hypokinesis. Grade I/IV diastolic dysfunction (abnormal relaxation filling pattern), normal to mildly elevated filling pressures. -BNP over 26,000, 11 L positive -Creatinine 1.8 -Bilateral lower extremity ultrasound negative for DVT -CT angiogram cannot be performed due to creatinine -Currently on therapeutic Lovenox -With hyponatremia, serum sodium 133, likely secondary to diuretic, SIADH with sepsis: Currently on hypertonic saline at 40 cc an hour, conivaptan 2 doses, n ephrology on consult -Continues to be fluid overloaded, chest x-ray continues to show pulmonary vasc ular congestion, + 12 L, hyponatremia is improving, will do trial of Lasix -Family declines CRRT -Septic shock on broad-spectrum antibiotic therapy, on pressor therapy, family declines further imaging -continue Levaquin, vancomycin, Primaxin, caspofungin -No fevers, family declines further imaging -Follow blood cultures, sputum cultures so far unremarkable -Hemoglobin 8.7, status post 1 unit PRBC, monitor hemoglobin -Currently on Levophed,maintain MAP greater than 75 -Hold fluid due to concerns for fluid overload -For A. fib with RVR, currently on p.o. Cardizem 60 every 6 hours, amiodarone 40 0 decreased to 1 daily -Ventilator, 90% % % FiO2, continue ventilatory support, resume sedation, min imize PEEP, minimize FiO2 -Currently does not follow commands, pupils reactive to light, does have cough, does have gag -Continue fentanyl patch -Fentanyl, propofol for sedation -Hold tube feeds -Patient's family has made him DNR -Protonix 40 IV twice daily, Carafate -Therapeutic Lovenox -Status is critical, prognosis is guarded Plan for today, continue hypertonic saline, conivaptan, continue antibiotics, pursuing full comfort care tomorrow at noon Status: Acute (2) Atrial fibrillation and flutter: Status: Acute (3) Hypoxemia: Hypoxia persists. Secondary to COVID-19 pneumonia, acute respiratory distress syndrome, FiO2 requirement up to 100%. Noted thrombophlebitis with thrombus within cephalic vein of left forearm. Continue cefepime, vancomycin. Sputum cultures were repeated 04/14. He has completed his course of remdesivir, and dexamethasone Initial antibiotic course of azithromycin, ceftriaxone. Tracheostomy performed late April 11 PEG tube was placed 04/13. Arrangements also underway for placement to long-term care. Status: Acute (4) COVID-19: Severe COVID-19 with ARDS. As above. Status: Acute (5) Ischemic cardiomyopathy: Status: Acute (6) Acute kidney injury: Status: Acute (7) Hyponatremia: Status: Acute (8) Atherosclerosis of coronary artery of [place] heart without angina pectoris: Continue cardiac medications. Status: Acute Qualifiers: Coronary Disease-Associated Artery/Lesion type: unspecified vessel or lesion type Qualified Code(s): I25.10 - Atherosclerotic heart disease of [place] coronary artery without angina pectoris (9) Dyslipidemia: Status: Acute (10) Benign essential HTN: Status: Acute (11) Neck mass: Indeterminate left neck mass measuring nearly 3 cm in size, does not appear to originate from the thyroid. CT scan neck demonstrated no mass Status: Acute (12) Fever: Recurrence. See notation above. 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
--- NOTE | 2021-04-25 18:09 | PC.NURSE ---
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 Very weak. Propofol titrated back up.
[2021-04-25 19:58] LABS: Sodium 121 mmol/L (136-145)
[2021-04-25] MEDS: atorvastatin 40 mg Tablet PO (20:07)
[2021-04-25] MEDS: propofol 1,000 MG/100 ML INJ 15.54 MG IV (20:38)
[2021-04-25 21:59] LABS: Sodium 122 mmol/L (136-145)
[2021-04-26] VITALS (64 sets, daily range): BP systolic 94–125; BP diastolic 52–69; PULSE 75–86; RESP 20–36; TEMP 36.7–37.2; O2SAT 86–98
[2021-04-26] MEDS: norepinephrine 8 MG in dextrose 5 % 500 ML 15.24 MG IV (00:17)
[2021-04-26] MEDS: dilTIAZem 60 mg Tablet PO ×4 (01:21→17:03)
[2021-04-26] MEDS: propofol 1,000 MG/100 ML INJ 15.54 MG IV (01:21)
[2021-04-26 01:53] LABS: Sodium 123 mmol/L (136-145)
[2021-04-26] MEDS: pantoprazole 40 mg SDV IVP ×2 (03:10→17:03)
[2021-04-26] MEDS: ipratropium-albuterol 3 mL Neb INHALATION ×6 (03:21→23:25)
--- NOTE | 2021-04-26 04:07 | PC.NURSE ---
Addendum entered by Mary Nevarez RN 04/26/21 06:46: Had propofol down to 5 mcg/kg/hr. Was still not withdrawing from pain, tracking with eyes, or following commands. Had to increase sedation due to respiratory distress. Dr. Subramanian notified. Original Note: Shift Note Frequent safety and comfort rounds continue. Patient repositioned q 2 hours and tolerated well. Orders and/or nursing care completed as indicated. Weaning off Propofol as instructed. Pt becoming more tachypneic. Patient monitored for response to intervention and treatment. Education provided includes levophed and propofol. Family verbalized understanding. Will continue to monitor.
[2021-04-26] MEDS: sucralfate 1 gm Tablet PO ×4 (06:07→21:24)
[2021-04-26 06:13] LABS: Sodium 127 mmol/L (136-145)
--- NOTE | 2021-04-26 06:24 | P.PN_ITS ---
Subjective Subjective: Interval history: sedated on vent- decreased presser needs Medications: Reviewed: Yes Medication Review Details: Current Medications Acetaminophen (Acetaminophen 325 Mg Tablet) 650 mg PO Q6H PRN PRN Reason: Mild/Mod Pain Or Temp >/= 101 Last Admin: 04/21/21 09:00 Dose: 650 mg Documented by: Albuterol Sulfate (Albuterol 2.5 Mg/0.5 Ml Neb) 2.5 mg INHALATION Q4 H.RESPIRATORY PRN PRN Reason: SHORTNESS OF BREATH Albuterol/Ipratropium (Ipratropium-Albuterol 3 Ml Neb) 3 ml INHALATION Q4H.RESPIRATORY [facility] Last Admin: 04/26/21 03:21 Dose: 3 ml Documented by: Amiodarone HCl (Amiodarone 200 Mg Tablet) 400 mg PO DAILY [facility] Last Admin: 04/25/21 09:00 Dose: 400 mg Documented by: Artificial Tears (Artificial Tears Op Oint 3.5 Gm) 1 applic EYE-BOTH PRN PRN PRN Reason: DRY EYE(S) Aspirin (Aspirin 81 Mg Ec Tablet) 81 mg PO DAILY [facility] Last Admin: 04/25/21 08:47 Dose: 81 mg Documented by: Atorvastatin Calcium (Atorvastatin 40 Mg Tablet) 40 mg PO BEDTIME [facility] Last Admin: 04/25/21 20:07 Dose: 40 mg Documented by: Budesonide (Budesonide 0.5 Mg/2 Ml Neb) 0.5 mg INHALATION BID.RESPIRATORY [facility] Last Admin: 04/25/21 20:56 Dose: 0.5 mg Documented by: Bumetanide (Bumetanide 0.25 Mg/Ml Sdv 4 Ml) 1 mg IV Q12H [facility] Last Admin: 04/23/21 12:16 Dose: 1 mg Documented by: Diltiazem HCl (Diltiazem 60 Mg Tablet) 60 mg PO Q6H [facility] Last Admin: 04/26/21 01:21 Dose: 60 mg Documented by: Enoxaparin Sodium (Enoxaparin 80 Mg/0.8 Ml Syringe) 80 mg SUBCUT Q12H [facility] Last Admin: 04/25/21 22:24 Dose: 80 mg Documented by: Ferrous Gluconate (Ferrous Gluconate 324 Mg Tablet) 324 mg PO BIDWM [facility] Last Admin: 04/25/21 17:37 Dose: 324 mg Documented by: Folic Acid (Folic Acid 1 Mg Tablet) 1 mg PO DAILY [facility] Last Admin: 04/25/21 08:47 Dose: 1 mg Documented by: Guaifenesin (Guaifenesin 600 Mg Tablet) 600 mg PO BID [facility] Last Admin: 04/25/21 17:36 Dose: 600 mg Documented by: Caspofungin 50 mg/ Sodium (Chloride) 250 mls @ 250 mls/hr IV Q24H [facility] Last Admin: 04/25/21 15:28 Dose: Not Given Documented by: Norepinephrine Bitartrate 8 mg (/ Dextrose) 508 mls @ 0 mls/hr IV .Q0M [facility]; Protocol Last Titration: 04/26/21 04:44 Dose: 0 mcg/min, 0 mls/hr Documented by: Vasopressin 40 unit/ Sodium (Chloride) 40 mls @ 0.03 mls/min IV CONT [facility] Last Admin: 04/25/21 12:06 Dose: Not Given Documented by: Levofloxacin/Dextrose (Levaquin-D5w) 750 mg in 150 mls @ 100 mls/hr IV Q24H [facility]; Protocol Last Infusion: 04/25/21 18:53 Dose: Infused Documented by: Propofol (Diprivan) 1,000 mg in 100 mls @ 0 mls/hr IV .Q0M [facility]; Protocol Last Titration: 04/26/21 04:44 Dose: 10 mcg/kg/min, 5.18 mls/hr Documented by: Albumin Human (Albumin) 25 gm in 100 mls @ 60 mls/hr IV Q8H [facility] Last Infusion: 04/24/21 05:37 Dose: Infused Documented by: Linezolid (Zyvox Premix) 600 mg in 300 mls @ 300 mls/hr IV Q12H [facility]; Protocol Last Infusion: 04/25/21 21:30 Dose: Infused Documented by: Sodium Chloride (Sodium Chloride 3%) 500 mls @ 30 mls/hr IV .[id number] [facility] Last Infusion: 04/25/21 17:04 Dose: 40 mls/hr Documented by: Imipenem/Cilastatin Sodium 500 (mg/ Sodium Chloride) 100 mls @ 200 mls/hr IV Q8H [facility] Last Infusion: 04/25/21 23:32 Dose: Infused Documented by: Lanolin (Lanolin Oint 7 Gm) 1 applic TOPICAL PRN PRN PRN Reason: DRYNESS Last Admin: 04/16/21 08:03 Dose: 1 applic Documented by: Lorazepam (Lorazepam 2 Mg/Ml Inj 1 Ml) 1 mg IVP Q6H PRN PRN Reason: ANXIETY Last Admin: 04/21/21 07:58 Dose: 1 mg Documented by: Metolazone (Metolazone 5 Mg Tablet) 10 mg PO DAILY [facility] Last Admin: 04/23/21 13:27 Dose: 10 mg Documented by: Multivitamins Therapeutic (Multivitamin Therapeutic Tablet) 1 tab PO DAILY [facility] Last Admin: 04/25/21 08:47 Dose: 1 tab Documented by: Nitroglycerin (Nitroglycerin 0.4 Mg Sublingual Tablet) 0.4 mg SUBLINGUAL Q5M PRN PRN Reason: Chest Pain Nystatin (Nystatin Powder 15 Gm Btl) 1 applic TOPICAL QID PRN PRN Reason: RASH Last Admin: 04/17/21 09:34 Dose: 1 applic Documented by: Ondansetron HCl (Ondansetron 2 Mg/Ml Sdv 2 Ml) 4 mg IVP Q8H PRN PRN Reason: vomiting, or N/V if npo Pantoprazole Sodium (Pantoprazole 40 Mg Sdv) 40 mg IVP Q12H [facility] Last Admin: 04/26/21 03:10 Dose: 40 mg Documented by: Quetiapine Fumarate (Quetiapine 100 Mg Tablet) 50 mg PO BID [facility] Last Admin: 04/25/21 17:36 Dose: 50 mg Documented by: Senna (Sennosides 8.6 Mg Tablet) 17.2 mg PO BID [facility] Last Admin: 04/25/21 17:36 Dose: 17.2 mg Documented by: Sucralfate (Sucralfate 1 Gm Tablet) 1 gm PO AC&BEDTIME [facility] Last Admin: 04/26/21 06:07 Dose: 1 gm Documented by: Thiamine Mononitrate (Thiamine 100 Mg Tablet) 100 mg PO DAILY [facility] Last Admin: 04/25/21 08:47 Dose: 100 mg Documented by: Vitals/I&O/Wt Last Vital Signs Temp 98.3 F 04/26/21 04:00 Pulse 83 04/26/21 06:00 Resp 36 H 04/26/21 05:35 BP 95/54 04/26/21 00:00 Pulse Ox 91 04/26/21 05:35 04/25/21 04/25/21 04/26/21 14:59 22:59 06:59 Intake Total 1078.176 / 1389.236 3363.963 / 2519.139 493.131 / 3012.270 Output Total 1000 / 1000 1850 / 2850 900 / 3750 Balance 78.176 / 78.176 -409.037 / -330.861 -406.869 / -737.730 Weight last 48 hrs Weight 89.358 kg Physical Exam Narrative: EXAM NARRATIVE: low dose levo on vent via trach- minimally responsive vs noted- vent tv 400/ fio2=80%, rr 22/ peep 8 heent- nc/at neck trach lungs poor air movement w/ crackles heart reg, + s1, s2 abd soft, nt, nd, + bs ext + b/l edema neuro- sedated exam by RN as telehealth visit Urinary Catheter Management^: Mullen: Cath Placed During This Visit: yes, but has since been removed by the nurse Reason for Continuing Indwelling Catheter: Accurate Measurement of Urinary Output in Critically Ill Patients Urinary Catheter Date of Insertion: 04/17/21 Urinary Catheter Time of Insertion: 02:54 Date Urinary Catheter Removed: 04/17/21 Time Urinary Catheter Discontinued: 02:53 Data : 04/25/21 03:32 04/26/21 05:21 A&P Additional A&P Information 1. Hyponatremia -felt to be multifactorial i.e. metolazone induced stimulation of ADH release as well as hemodynamic lability also leading to nonosmotic release of ADH. Received Conviaptan on 04-24-21 and 3% saline and diuretics- na improved to 127- will d/c 3% saline Urine parameters reviewed including low urinary sodium and hypertonic urinalysis (Sp Gr 1.02), consistent with renal hypoperfusion also playing a role cont slow na correction Hold thiazide diuretics. -continue loop diuretics as needed. 2. Acute kidney injury Creatinine improving -working dx is COVID- nephropathy vs ATN Continue supportive care including vasopressor agents to support MAP greater than 65 mmHg Limit IV fluids given dense Covid pneumonitis Strict I's and O's No need for abdominal imaging given the ultrasound scan was performed on 04/20 Daily renal panel, strict I's and O's No indication for renal replacement therapy at this time Dose medication for GFR less than 30 3. Covid pneumonitis Currently on trach with high ventilator settings. Status post remdesivir and Decadron, currently receiving combination antibiotic therapy as well. -temps improved 4. Hemodynamics Atrial fibrillation with RVR since cardiac arrest Amiodarone and diltiazem on board -Per RN now in NSR weaning off levophed 5. likely comfort care- if so, do not need to monitor labs 6. 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
[2021-04-26 07:24] LABS: Alanine Aminotransferase 19 U/L (0-41); Albumin Level 2.6 g/dL (3.5-5.2); Alkaline Phosphatase 137 IU/L (40-130); Aspartate Amino Transferase 68 U/L (0-40); Blood Urea Nitrogen 22 mg/dL (8-23); Calcium 7.8 mg/dL (8.5-10.5); Carbon Dioxide 30 mmol/L (22-29); Chloride 81 mmol/L (98-107); Globulin 3.4 g/dL (1.3-4.6); Glomerular Filtration Rate 38.6 mL/min (90-130); Glucose 95 mg/dL (65-115); Osmolality Calculated 259 mOsm/kg (285-295); Sodium 123 mmol/L (136-145); Total Bilirubin 0.7 mg/dL (0.15-1.2)
[2021-04-26 07:32] LABS: Anion Gap 14.8 (5-19)
[2021-04-26 07:34] LABS: Potassium 2.8 mmol/L (3.5-5.1)
[2021-04-26] MEDS: budesonide 0.5 mg/2 mL Neb INHALATION ×2 (08:46→19:26)
[2021-04-26] MEDS: multivitamin therapeutic Tablet 1 TAB PO (08:50)
[2021-04-26] MEDS: aspirin 81 mg EC Tablet PO (08:50)
[2021-04-26] MEDS: guaiFENesin 600 mg Tablet PO ×2 (08:50→17:02)
[2021-04-26] MEDS: ferrous gluconate 324 mg Tablet PO ×2 (08:50→17:03)
[2021-04-26] MEDS: FUROsemide 10 mg/mL SDV 4mL 40 MG IVP (08:50)
[2021-04-26] MEDS: quetiapine 100 mg Tablet 50 MG PO (08:51)
[2021-04-26] MEDS: thiamine 100 mg Tablet PO (08:51)
[2021-04-26] MEDS: sennosides 8.6 mg Tablet 17.2 MG PO ×2 (08:51→17:02)
[2021-04-26] MEDS: amiodarone 200 mg Tablet 400 MG PO (08:52)
[2021-04-26] MEDS: folic acid 1 mg Tablet PO (08:52)
[2021-04-26] MEDS: lidocaine 1% 5 ML in potassium chloride premix 100 ML 25 ML IV ×2 (09:25→14:04)
[2021-04-26] MEDS: linezolid premix 600 MG/300 ML PREMIX 300 MG IV ×2 (09:28→21:16)
[2021-04-26 11:32] LABS: Sodium 123 mmol/L (136-145)
[2021-04-26] MEDS: enoxaparin 80 mg/0.8 mL Syringe SUBCUT ×2 (12:54→21:24)
[2021-04-26 13:11] LABS: Alanine Aminotransferase 21 U/L (0-41); Albumin Level 2.8 g/dL (3.5-5.2); Alkaline Phosphatase 138 IU/L (40-130); Anion Gap 12.9 (5-19); Aspartate Amino Transferase 71 U/L (0-40); Blood Urea Nitrogen 25 mg/dL (8-23); Calcium 7.8 mg/dL (8.5-10.5); Carbon Dioxide 33 mmol/L (22-29); Chloride 84 mmol/L (98-107); Globulin 3.4 g/dL (1.3-4.6); Glomerular Filtration Rate 34.1 mL/min (90-130); Glucose 108 mg/dL (65-115); Magnesium 1.8 mg/dL (1.7-2.3); Osmolality Calculated 269 mOsm/kg (285-295); Sodium 127 mmol/L (136-145); Total Bilirubin 0.6 mg/dL (0.15-1.2); Total Protein 6.2 g/dL (6.6-8.7)
[2021-04-26 13:13] LABS: Potassium 2.9 mmol/L (3.5-5.1)
--- NOTE | 2021-04-26 14:35 | PC.NUTR ---
Tube feeding recommendations: Feedings held X 5 days. Is receiving 408 kcal/day via levaquin-D5W and 205 kcal/day via propofol at current rate. Unclear if plan to resume feedings, pending family decisions on comfort care, per chart review and nurse report. If nutrition support remains consistent with goals of care, and when medically appropriate, recommend resuming Jevity 1.2 at 50 ml/hr (see order), increasing as tolerated to goal given 5 days without nutrition. H2O flushes per current order or MD discretion. See full RD assessment for further details.
[2021-04-26 15:23] LABS: Osmolality Urine 311 mOsm/kg (50-1200)
--- NOTE | 2021-04-26 16:07 | PM.PN ---
Subjective Subjective: Interval history: Overnight, there were multiple attempts to take patient off his sedation, he was on minimal propofol of 8, however he would become tachypneic, increased oxygen requirements, This morning I examined patient, he is off Levophed, he remains normotensive, he is in normal sinus rhythm, heart rates are well controlled, afebrile overnight, 80% FiO2, he has been off propofol, and I subsequently examined patient multiple times throughout the day Patient does have pupillary reflexes bilaterally, Babinski's is downward going, he does not withdraw from pain, he does not follow commands, but he does track, does have spontaneous movement of upper lower extremities, I am not sure if these are meaningful or not, at one point when I did call out his name he did really rotate his head towards me, but at other times he does not Patient's family was here to see him early in the morning, patient's daughters tell me that he was able to his squeeze her fingers, follow them around the room, was able to track with him, patient's also tells me that she felt that a lot of his movements, and responses were meaningful, in addition her son and the patient's brother also felt that a lot of patient's movements were meaningful Following discussion was made in front of nurse Amanda After discussion about patient's progress, patient's family felt that he has shown progress, they feel that his responses are meaningful, and that they indicate his cognition, and that they indicate recovery, and they are hoping that he might be able to has a says 1 day get up and walk, his tells me that he is no need a lot of physical therapy, a lot of prayer, but she feels that she does not want to give up on him, she feels that this is a sign from God that he can pull through this, she feels that it would be almost murder if she were to pull the plug on him at this point, she tells me that his responses she feels are a sign from him telling him not to give up. Patient's family was a bit frustrated as I could not confirm some of the success and progress that they have seen, they were also frustrated that I could not confirm if these responsiveness are meaningful. I advised patient's family that it is hard for me to say if these responses are meaningful or not, only time will tell, sometimes these movements can be spontaneous neuron discharges, they also might be spontaneous responses, where they might be some degree of cognition. However, I I hope some of his movements are meaningful, and I hope that he does recover. And only time will tell, patient's family want us to continue all interventions, want us to give him a chance, to see if he can recover from this. Patient's would like to keep him a DNR. Patient's would like to continue interventions, after discussing the risk and benefits, all parties voiced understanding, all questions answered, agreed to proceed with pursuing medical management Vitals/I&O/Wt Last Vital Signs Temp 98.5 F 04/26/21 06:00 Pulse 81 04/26/21 12:00 Resp 29 H 04/26/21 11:19 BP 102/58 04/26/21 12:00 Pulse Ox 90 04/26/21 12:00 04/26/21 04/26/21 04/26/21 06:59 14:59 22:59 Intake Total 497.318 / 3016.457 604 / 604 Output Total 1400 / 4250 1250 / 1250 Balance -902.682 / -1233.543 -646 / -646 Weight last 48 hrs Weight 89.539 kg Weight 89.358 kg Physical Exam Narrative: EXAM NARRATIVE: Off sedation, pupils equal round reactive light, some tracking, does move his head towards me when elicited, however at other times he does not, no following commands, Babinski is downward going bilaterally, does not withdraw from pain, does have a cough reflex, does have a gag reflex has spontaneous movement of the head does have spontaneous eye opening, eyes tend to roll upwards Const: COMMON NORMALS: negative for alert GENERAL APPEARANCE: frail appearing ORIENTATION/CONSCIOUSNESS: not oriented to person, not oriented to place and not oriented to time Neck/C-Spine: OTHER: Tracheostomy in place Chest: COMMONS NORMALS: normal inspection of the chest Resp: COMMON NORMALS: normal respiratory effort, No retractions and No use of accessory muscles AUSCULTATION: wheezes Cardio: COMMON NORMALS: regular rate, regular rhythm, S1 normal heart sound present and S2 normal heart sound present RATE: regular rate RHYTHM: regular rhythm HEART SOUNDS: S1 normal heart sound present and S2 normal heart sound present GI: COMMON NORMALS: Normal to inspection, nondistended, normoactive bowel sounds present, Soft to palpation and non-tender PALPATION: Yes Soft to palpation OTHER: PEG tube in place Extremity: OTHER: 1+ pitting edema, generalized anasarca Neuro: SENSORIUM/ORIENTATION: No alert, No oriented to person, No oriented to place, No oriented to time and No Orientation impaired COMATOSE PATIENT: corneal reflex present, No response to noxious stimuli present and hand drop from over head - strikes face Urinary Catheter Management^: Mullen: Cath Placed During This Visit: yes, but has since been removed by the nurse Reason for Continuing Indwelling Catheter: Accurate Measurement of Urinary Output in Critically Ill Patients Urinary Catheter Date of Insertion: 04/17/21 Urinary Catheter Time of Insertion: 02:54 Date Urinary Catheter Removed: 04/17/21 Time Urinary Catheter Discontinued: 02:53 Data : 04/25/21 03:32 04/26/21 12:14 A&P Assessment and plan (1) PEA (Pulseless electrical activity): -PA -Possibly secondary to pulmonary embolism and or acute flash pulmonary edema -With underlying acute hypoxic respiratory failure secondary to COVID-19 pneumonia, acute respiratory distress syndrome, status post tracheostomy, status post percutaneous gastrostomy tube placement -Status post CPR -PEA -Return of circulation -EKG shows slight ST-T wave changes in inferior leads, discussed with cardiology, no evidence of acute NM, baseline troponin I 04, 120-minute, 98.33, 6hour 131.6, delta 27.6 -repeat echo Moderately decreased left ventricular systolic function. Left ventricular ejection fraction is estimated at 40 %. Global left ventricular hypokinesis. Grade I/IV diastolic dysfunction (abnormal relaxation filling pattern), normal to mildly elevated filling pressures. -BNP elevated, 9.7 L positive -Creatinine 2.0, urine output 4500, monitor urine output, creatinine -Bilateral lower extremity ultrasound negative for DVT -CT angiogram cannot be performed due to creatinine -Currently on therapeutic Lovenox -With hyponatremia, serum sodium 127, likely secondary to diuretic, SIADH with sepsis, currently on hypertonic saline has been held, conivaptan 2 doses, nephrology on consult, continue to monitor serum sodiums -Continues to be fluid overloaded, generalized anasarca chest x-ray continues to show pulmonary vascular congestion, + 9.7 L, hyponatremia is improving, will do trial of Lasix this morning 40 mg -Family declines CRRT for now -Septic shock on broad-spectrum antibiotic therapy, off pressor therapy -continue Levaquin, vancomycin, Primaxin, caspofungin -We will consider CT chest abdomen and pelvis to rule out underlying abscess however has remained afebrile -We will consider doing CT of the head when more stable -We will order EEG -No fevers -Follow blood cultures, sputum cultures so far unremarkable -Hemoglobin 9.2, status post 1 unit PRBC, monitor hemoglobin -Currently off Levophed,maintain MAP greater than 75, start midodrine 10 3 times daily -Hold fluid due to concerns for fluid overload -For A. fib with RVR, currently normal sinus rhythm, paroxysmal A. fib currently on p.o. Cardizem 60 every 6 hours, amiodarone 400 once daily, Lovenox as above -Ventilator, 80% % FiO2, continue ventilatory support, minimize PEEP, minimize FiO2 -For now we will discontinue sedation, sedation should only be used if concerns for tachypnea, respiratory failure -Can use morphine and Haldol as needed for pain, anxiety -Currently does not follow commands, pupils reactive to light, does have cough, does have gag, does not withdraw from pain, some tracking -Stop fentanyl patch - propofol for sedation if only required -Hold Seroquel -Continue tube feeds -Patient's family has made him DNR -Protonix 40 IV twice daily, Carafate -Therapeutic Lovenox -Status is stable, prognosis is guarded -Family wants to continue medical interventions Plan for today, do a trial of Lasix, continue antibiotics, monitor serum sodiums, monitor hemodynamics, monitor mentation off sedation, continue to hold sedation, monitor for worsening respiratory failure Status: Acute (2) Atrial fibrillation and flutter: Status: Acute (3) Hypoxemia: Hypoxia persists. Secondary to COVID-19 pneumonia, acute respiratory distress syndrome, FiO2 requirement up to 100%. Noted thrombophlebitis with thrombus within cephalic vein of left forearm. Continue cefepime, vancomycin. Sputum cultures were repeated 04/14. He has completed his course of remdesivir, and dexamethasone Initial antibiotic course of azithromycin, ceftriaxone. Tracheostomy performed late April 11 PEG tube was placed 04/13. Arrangements also underway for placement to long-term care. Status: Acute (4) COVID-19: Severe COVID-19 with ARDS. As above. Status: Acute (5) Ischemic cardiomyopathy: Status: Acute (6) Acute kidney injury: Status: Acute (7) Hyponatremia: Status: Acute (8) Atherosclerosis of coronary artery of [place] heart without angina pectoris: Continue cardiac medications. Status: Acute Qualifiers: Coronary Disease-Associated Artery/Lesion type: unspecified vessel or lesion type Qualified Code(s): I25.10 - Atherosclerotic heart disease of [place] coronary artery without angina pectoris (9) Dyslipidemia: Status: Acute (10) Benign essential HTN: Status: Acute (11) Neck mass: Indeterminate left neck mass measuring nearly 3 cm in size, does not appear to originate from the thyroid. CT scan neck demonstrated no mass Status: Acute (12) Fever: Recurrence. See notation above. 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
[2021-04-26 16:15] LABS: Basophils % 0.4 %; Eosinophils # 0.1 10^3/uL (0.0-0.8); Hematocrit 27.3 % (42.0-52.0); Hemoglobin 9.2 g/dL (11.7-16.6); Lymphocytes # 0.6 10^3/uL (0.8-4.8); Lymphocytes % 7.4 %; Mean Corpuscular HGB Conc 33.7 g/dL (30.0-36.0); Mean Corpuscular Volume 97.8 fl (80-94); Monocytes # 0.4 10^3/uL (0.2-0.9); Monocytes % 5.1 %; Neutrophils # 6.74 10^3/uL (1.8-7.7); Neutrophils % 82.5 %; Nucleated Red Blood Cells % 0 %; Platelet Count 590 10^3/cmm (130-400); Red Blood Count 2.79 10^6/uL (4.1-5.3); Red Cell Distribution Width 13.2 % (12.1-15.1); White Blood Count 8.2 10^3/uL (4.0-10.0)
[2021-04-26] MEDS: levofloxacin-dextrose 5 % 750 MG/150 ML PREMIX 100 MG IV (16:40)
[2021-04-26 16:46] LABS: Alanine Aminotransferase 20 U/L (0-41); Albumin Level 2.6 g/dL (3.5-5.2); Alkaline Phosphatase 153 IU/L (40-130); Anion Gap 15.2 (5-19); Aspartate Amino Transferase 71 U/L (0-40); Blood Urea Nitrogen 22 mg/dL (8-23); Calcium 7.7 mg/dL (8.5-10.5); Carbon Dioxide 30 mmol/L (22-29); Chloride 84 mmol/L (98-107); Globulin 3.9 g/dL (1.3-4.6); Glomerular Filtration Rate 34.1 mL/min (90-130); Glucose 108 mg/dL (65-115); Magnesium 1.7 mg/dL (1.7-2.3); Osmolality Calculated 266 mOsm/kg (285-295); Potassium 3.2 mmol/L (3.5-5.1); Sodium 126 mmol/L (136-145); Total Bilirubin 0.6 mg/dL (0.15-1.2); Total Protein 6.5 g/dL (6.6-8.7)
[2021-04-26] MEDS: midodrine 5 mg TABLET 10 MG PO ×2 (17:02→21:16)
[2021-04-26] MEDS: HYDROcodone-acetaminophen 5-325 mg Tablet 1 TAB PO (18:09)
[2021-04-26 20:14] LABS: NT Pro B Type Natriuretic Pept 16432 pg/mL (0-125); Procalcitonin 0.81 ng/mL (0-0.5)
[2021-04-26 20:25] LABS: C Reactive Protein 97.3 mg/L (0.0-4.9)
[2021-04-26] MEDS: atorvastatin 40 mg Tablet PO (21:16)
[2021-04-26 21:46] LABS: Sodium 127 mmol/L (136-145)
[2021-04-27] VITALS (53 sets, daily range): BP systolic 89–136; BP diastolic 60–89; PULSE 85–95; RESP 22–31; TEMP 36.7–37.3; O2SAT 86–100
[2021-04-27] MEDS: dilTIAZem 60 mg Tablet PO ×4 (01:01→21:19)
[2021-04-27 01:46] LABS: Alanine Aminotransferase 18 U/L (0-41); Albumin Level 2.6 g/dL (3.5-5.2); Alkaline Phosphatase 143 IU/L (40-130); Anion Gap 11.9 (5-19); Aspartate Amino Transferase 71 U/L (0-40); Blood Urea Nitrogen 23 mg/dL (8-23); Calcium 7.9 mg/dL (8.5-10.5); Carbon Dioxide 33 mmol/L (22-29); Chloride 85 mmol/L (98-107); Globulin 3.6 g/dL (1.3-4.6); Glomerular Filtration Rate 36.2 mL/min (90-130); Glucose 83 mg/dL (65-115); Magnesium 1.6 mg/dL (1.7-2.3); Osmolality Calculated 267 mOsm/kg (285-295); Sodium 127 mmol/L (136-145); Total Bilirubin 0.6 mg/dL (0.15-1.2); Total Protein 6.2 g/dL (6.6-8.7)
[2021-04-27 01:47] LABS: Potassium 2.9 mmol/L (3.5-5.1)
--- NOTE | 2021-04-27 03:31 | PC.PHAR ---
RENAL DOSING FOR LEVAQUIN 750MG Q24H TO Q48H due to decrease in renal function
[2021-04-27] MEDS: lidocaine 1% 5 ML in potassium chloride premix 100 ML 25 ML IV (03:37)
[2021-04-27] MEDS: pantoprazole 40 mg SDV IVP ×2 (03:54→15:52)
[2021-04-27] MEDS: ipratropium-albuterol 3 mL Neb INHALATION ×4 (03:59→19:50)
[2021-04-27 04:34] LABS: Basophils % 0.2 %; Eosinophils # 0.1 10^3/uL (0.0-0.8); Eosinophils % 0.9 %; Hematocrit 25.6 % (42.0-52.0); Hemoglobin 8.5 g/dL (11.7-16.6); Lymphocytes # 0.8 10^3/uL (0.8-4.8); Lymphocytes % 6.7 %; Mean Corpuscular HGB Conc 33.2 g/dL (30.0-36.0); Mean Corpuscular Hemoglobin 33.7 pg (28.0-34.0); Mean Corpuscular Volume 101.6 fl (80-94); Mean Platelet Volume 9.8 fL (7.4-10.4); Monocytes # 0.8 10^3/uL (0.2-0.9); Monocytes % 6.6 %; Neutrophils # 9.57 10^3/uL (1.8-7.7); Neutrophils % 82.7 %; Nucleated Red Blood Cells % 0 %; Platelet Count 578 10^3/cmm (130-400); Red Blood Count 2.52 10^6/uL (4.1-5.3); Red Cell Distribution Width 13.4 % (12.1-15.1); White Blood Count 11.6 10^3/uL (4.0-10.0)
[2021-04-27 04:48] LABS: ABG PCO2 53.8 mmHg (35-45); ABG PH Result 7.45 (7.35-7.45); Arterial Blood Gas Hematocrit 31.6 % (42-52); Base Excess ABG 11.4 mmol/L (-2.0-2.0); Blood Gas Allen Test Pos; Blood Gas Sample Site Radial, right; Blood Gas Sample Type Arterial; HCO3 ABG 37.1 mmol/L (22-26); Oxygen Device VENT; PO2 ABG 58.8 mmHg (80.0-100.0)
[2021-04-27 04:58] LABS: INR 1.12 (0.8-1.2)
[2021-04-27] MEDS: lidocaine 1% 5 ML in potassium chloride premix 100 ML 50 ML IV (05:03)
[2021-04-27 05:05] LABS: Lactate (Lactic Acid level) 1.1 mmol/L (0.5-2.2)
[2021-04-27] MEDS: sucralfate 1 gm Tablet PO ×4 (06:33→21:19)
[2021-04-27] MEDS: HYDROcodone-acetaminophen 5-325 mg Tablet 1 TAB PO ×2 (06:33→18:05)
--- NOTE | 2021-04-27 07:00 | XR_ITS ---
WS: [id number] Portable AP semiupright chest, 04/27/2021 Clinical Data: sob Comparison: Portable chest, 04/25/2021. Findings: There are diffuse pulmonary opacities remain the same. The tracheal tube and right subclavi an catheter remain in the same position. The heart is slightly enlarged. There is a right pleural eff usion. Monitor leads are on the chest wall. XR/XR chest 1V portable [id number] Impression: 1. No change in tracheal tube and right PICC line. 2. No change in diffuse pulmonary opacities.
[2021-04-27] MEDS: budesonide 0.5 mg/2 mL Neb INHALATION ×2 (07:51→19:50)
[2021-04-27 08:37] LABS: Glucose Point of Care 100 mg/dL (70-110)
[2021-04-27 09:15] LABS: NT Pro B Type Natriuretic Pept 25430 pg/mL (0-125); Procalcitonin 0.48 ng/mL (0-0.5)
[2021-04-27 09:27] LABS: Alanine Aminotransferase 18 U/L (0-41); Albumin Level 2.8 g/dL (3.5-5.2); Alkaline Phosphatase 156 IU/L (40-130); Aspartate Amino Transferase 73 U/L (0-40); Blood Urea Nitrogen 23 mg/dL (8-23); C Reactive Protein 50.4 mg/L (0.0-4.9); Carbon Dioxide 33 mmol/L (22-29); Chloride 85 mmol/L (98-107); Creatine Phosphokinase 64 U/L (39-308); Globulin 3.7 g/dL (1.3-4.6); Glomerular Filtration Rate 38.6 mL/min (90-130); Glucose 91 mg/dL (65-115); Magnesium 1.7 mg/dL (1.7-2.3); Osmolality Calculated 269 mOsm/kg (285-295); Phosphorus 2.9 mg/dL (2.5-4.5); Sodium 128 mmol/L (136-145); Total Bilirubin 0.6 mg/dL (0.15-1.2); Total Protein 6.5 g/dL (6.6-8.7)
[2021-04-27 09:30] LABS: Anion Gap 13.3 (5-19); Potassium 3.3 mmol/L (3.5-5.1)
[2021-04-27] MEDS: ferrous gluconate 324 mg Tablet PO ×2 (09:37→18:05)
[2021-04-27] MEDS: multivitamin therapeutic Tablet 1 TAB PO (09:37)
[2021-04-27] MEDS: thiamine 100 mg Tablet PO (09:37)
[2021-04-27] MEDS: sennosides 8.6 mg Tablet 17.2 MG PO ×2 (09:37→18:05)
[2021-04-27] MEDS: guaiFENesin 600 mg Tablet PO ×2 (09:37→18:05)
[2021-04-27] MEDS: midodrine 5 mg TABLET 10 MG PO (09:37)
[2021-04-27] MEDS: enoxaparin 80 mg/0.8 mL Syringe SUBCUT ×2 (09:38→21:18)
[2021-04-27] MEDS: amiodarone 200 mg Tablet 400 MG PO (09:38)
[2021-04-27] MEDS: aspirin 81 mg EC Tablet PO (09:38)
[2021-04-27] MEDS: folic acid 1 mg Tablet PO (09:38)
[2021-04-27] MEDS: linezolid premix 600 MG/300 ML PREMIX 300 MG IV ×2 (09:40→21:18)
[2021-04-27 12:22] LABS: Magnesium 1.9 mg/dL (1.7-2.3)
[2021-04-27] MEDS: potassium chloride oral liq 20 mEq/15 mL UDC 80 MEQ PO (12:22)
--- NOTE | 2021-04-27 12:45 | P.PN_ITS ---
Subjective Subjective: Interval history: Events from the last 24 hours are reviewed. Input from the family members is also reviewed. Currently remains relatively stable. Tolerating tube feeds. Currently receiving free water flushes, 250 mL every 6 hours. Urine output remained stable. Medications: Reviewed: Yes Medication Review Details: Current Medications Acetaminophen (Acetaminophen 325 Mg Tablet) 650 mg PO Q6H PRN PRN Reason: Mild/Mod Pain Or Temp >/= 101 Last Admin: 04/21/21 09:00 Dose: 650 mg Documented by: Albuterol Sulfate (Albuterol 2.5 Mg/0.5 Ml Neb) 2.5 mg INHALATION Q4H.RESPIRATORY PRN PRN Reason: SHORTNESS OF BREATH Albuterol/Ipratropium (Ipratropium-Albuterol 3 Ml Neb) 3 ml INHALATION Q4H.RESPIRATORY [place] Last Admin: 04/26/21 03:21 Dose: 3 ml Documented by: Amiodarone HCl (Amiodarone 200 Mg Tablet) 400 mg PO DAILY [place] Last Admin: 04/25/21 09:00 Dose: 400 mg Documented by: Artificial Tears (Artificial Tears Op Oint 3.5 Gm) 1 applic EYE-BOTH PRN PRN PRN Reason: DRY EYE(S) Aspirin (Aspirin 81 Mg Ec Tablet) 81 mg PO DAILY [place] Last Admin: 04/25/21 08:47 Dose: 81 mg Documented by: Atorvastatin Calcium (Atorvastatin 40 Mg Tablet) 40 mg PO BEDTIME [facility] Last Admin: 04/25/21 20:07 Dose: 40 mg Documented by: Budesonide (Budesonide 0.5 Mg/2 Ml Neb) 0.5 mg INHALATION BID.RESPIRATORY [facility] Last Admin: 04/25/21 20:56 Dose: 0.5 mg Documented by: Bumetanide (Bumetanide 0.25 Mg/Ml Sdv 4 Ml) 1 mg IV Q12H [facility] Last Admin: 04/23/21 12:16 Dose: 1 mg Documented by: Diltiazem HCl (Diltiazem 60 Mg Tablet) 60 mg PO Q6H [facility] Last Admin: 04/26/21 01:21 Dose: 60 mg Documented by: Enoxaparin Sodium (Enoxaparin 80 Mg/0.8 Ml Syringe) 80 mg SUBCUT Q12H [place] Last Admin: 04/25/21 22:24 Dose: 80 mg Documented by: Ferrous Gluconate (Ferrous Gluconate 324 Mg Tablet) 324 mg PO BIDWM [facility] Last Admin: 04/25/21 17:37 Dose: 324 mg Documented by: Folic Acid (Folic Acid 1 Mg Tablet) 1 mg PO DAILY [facility] Last Admin: 04/25/21 08:47 Dose: 1 mg Documented by: Guaifenesin (Guaifenesin 600 Mg Tablet) 600 mg PO BID [facility] Last Admin: 04/25/21 17:36 Dose: 600 mg Documented by: Caspofungin 50 mg/ Sodium (Chloride) 250 mls @ 250 mls/hr IV Q24H [facility] Last Admin: 04/25/21 15:28 Dose: Not Given Documented by: Norepinephrine Bitartrate 8 mg (/ Dextrose) 508 mls @ 0 mls/hr IV .Q0M [facility]; Protocol Last Titration: 04/26/21 04:44 Dose: 0 mcg/min, 0 mls/hr Documented by: Vasopressin 40 unit/ Sodium (Chloride) 40 mls @ 0.03 mls/min IV CONT [facility] Last Admin: 04/25/21 12:06 Dose: Not Given Documented by: Levofloxacin/Dextrose (Levaquin-D5w) 750 mg in 150 mls @ 100 mls/hr IV Q24H [facility]; Protocol Last Infusion: 04/25/21 18:53 Dose: Infused Documented by: Propofol (Diprivan) 1,000 mg in 100 mls @ 0 mls/hr IV .Q0M [facility]; Protocol Last Titration: 04/26/21 04:44 Dose: 10 mcg/kg/min, 5.18 mls/hr Documented by: Albumin Human (Albumin) 25 gm in 100 mls @ 60 mls/hr IV Q8H [facility] Last Infusion: 04/24/21 05:37 Dose: Infused Documented by: Linezolid (Zyvox Premix) 600 mg in 300 mls @ 300 mls/hr IV Q12H [facility]; Protocol Last Infusion: 04/25/21 21:30 Dose: Infused Documented by: Sodium Chloride (Sodium Chloride 3%) 500 mls @ 30 mls/hr IV .[id number] [facility] Last Infusion: 04/25/21 17:04 Dose: 40 mls/hr Documented by: Imipenem/Cilastatin Sodium 500 (mg/ Sodium Chloride) 100 mls @ 200 mls/hr IV Q8H [facility] Last Infusion: 04/25/21 23:32 Dose: Infused Documented by: Lanolin (Lanolin Oint 7 Gm) 1 applic TOPICAL PRN PRN PRN Reason: DRYNESS Last Admin: 04/16/21 08:03 Dose: 1 applic Documented by: Lorazepam (Lorazepam 2 Mg/Ml Inj 1 Ml) 1 mg IVP Q6H PRN PRN Reason: ANXIETY Last Admin: 04/21/21 07:58 Dose: 1 mg Documented by: Metolazone (Metolazone 5 Mg Tablet) 10 mg PO DAILY [facility] Last Admin: 04/23/21 13:27 Dose: 10 mg Documented by: Multivitamins Therapeutic (Multivitamin Therapeutic Tablet) 1 tab PO DAILY [facility] Last Admin: 04/25/21 08:47 Dose: 1 tab Documented by: Nitroglycerin (Nitroglycerin 0.4 Mg Sublingual Tablet) 0.4 mg SUBLINGUAL Q5M PRN PRN Reason: Chest Pain Nystatin (Nystatin Powder 15 Gm Btl) 1 applic TOPICAL QID PRN PRN Reason: RASH Last Admin: 04/17/21 09:34 Dose: 1 applic Documented by: Ondansetron HCl (Ondansetron 2 Mg/Ml Sdv 2 Ml) 4 mg IVP Q8H PRN PRN Reason: vomiting, or N/V if npo Pantoprazole Sodium (Pantoprazole 40 Mg Sdv) 40 mg IVP Q12H [facility] Last Admin: 04/26/21 03:10 Dose: 40 mg Documented by: Quetiapine Fumarate (Quetiapine 100 Mg Tablet) 50 mg PO BID [facility] Last Admin: 04/25/21 17:36 Dose: 50 mg Documented by: Senna (Sennosides 8.6 Mg Tablet) 17.2 mg PO BID [facility] Last Admin: 04/25/21 17:36 Dose: 17.2 mg Documented by: Sucralfate (Sucralfate 1 Gm Tablet) 1 gm PO AC&BEDTIME [facility] Last Admin: 04/26/21 06:07 Dose: 1 gm Documented by: Thiamine Mononitrate (Thiamine 100 Mg Tablet) 100 mg PO DAILY [facility] Last Admin: 04/25/21 08:47 Dose: 100 mg Documented by: Vitals/I&O/Wt Last Vital Signs Temp 98.9 F 04/27/21 08:00 Pulse 86 04/27/21 11:38 Resp 29 H 04/27/21 11:38 BP 122/66 04/27/21 11:00 Pulse Ox 93 04/27/21 11:38 04/26/21 04/27/21 04/27/21 22:59 06:59 14:59 Intake Total 602.128 / 1606.128 100 / 1706.128 Output Total 400 / 1650 800 / 2450 Balance 202.128 / -43.872 -700 / -743.872 Weight last 48 hrs Weight 85.729 kg Weight 89.539 kg Physical Exam Narrative: EXAM NARRATIVE: Constitutional: minimally interactive HEENT: Wet mucosa, no jvp, non icteric Lungs: Bilaterally rales, wheezing, diminished CVS: S1 S2, no murmurs Abdo: Soft, BS ok Ext 4: Global anasarca, peripheral perfusion with no cyanosis Neurological: Sedated Urinary Catheter Management^: Mullen: Cath Placed During This Visit: yes, but has since been removed by the nurse Reason for Continuing Indwelling Catheter: Accurate Measurement of Urinary Output in Critically Ill Patients Urinary Catheter Date of Insertion: 04/17/21 Urinary Catheter Time of Insertion: 02:54 Date Urinary Catheter Removed: 04/17/21 Time Urinary Catheter Discontinued: 02:53 Data : 04/27/21 04:25 04/27/21 08:39 Micro: Microbiology 04/22/21 11:08 Blood Culture - Final Blood NO GROWTH AFTER 5 DAYS 04/22/21 11:04 Blood Culture - Final Blood NO GROWTH AFTER 5 DAYS A&P Additional A&P Information 1. Hyponatremia Slow improvement this morning, close to normal range On FWF; will monitor for now, may to stop these Hold thiazide diuretics. Okay to use loop diuretics if needed. 2. Acute kidney injury Creatinine improving Strict I's and O's Daily renal panel, strict I's and O's No indication for renal replacement therapy at this time Dose medication for GFR less than 30 3. Covid pneumonitis Currently on trach with high ventilator settings. Status post remdesivir and Decadron, currently receiving combination antibiotic therapy as well. 4. Hemodynamics Atrial fibrillation with RVR since cardiac arrest Amiodarone and diltiazem on board Off pressor agents at this time 5. HypoK being replaced Multisystem organ failure in the setting of Covid pneumonitis ; poor prognosis. 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
--- NOTE | 2021-04-27 15:07 | PM.PN ---
Subjective Subjective: Interval history: Patient was seen this morning, he is off pressors, he is on 80% FiO2, afebrile overnight, good urine output, this morning he does track, he is able to follow basic commands such as squeezing my fingers he is able to nod his head, able to wiggle his toes, but at other times does not respond to commands Vitals/I&O/Wt Last Vital Signs Temp 98.9 F 04/27/21 08:00 Pulse 86 04/27/21 11:38 Resp 29 H 04/27/21 11:38 BP 122/66 04/27/21 11:00 Pulse Ox 93 04/27/21 11:38 04/27/21 04/27/21 04/27/21 06:59 14:59 22:59 Intake Total 100 / 1956.128 Output Total 800 / 2450 Balance -700 / -493.872 Weight last 48 hrs Weight 85.729 kg Weight 89.539 kg Physical Exam Const: COMMON NORMALS: no acute distress GENERAL APPEARANCE: frail appearing ORIENTATION/CONSCIOUSNESS: Yes awake; not oriented to person, not oriented to place and not oriented to time OTHER: Is able to follow basic commands such as squeezing my fingers, wiggling his toes Resp: COMMON NORMALS: normal respiratory effort, No retractions, No use of accessory muscles and clear to auscultation bilaterally AUSCULTATION: clear to auscultation bilaterally Cardio: COMMON NORMALS: regular rate, regular rhythm, S1 normal heart sound present and S2 normal heart sound present RATE: regular rate RHYTHM: regular rhythm HEART SOUNDS: S1 normal heart sound present and S2 normal heart sound present GI: OTHER: PEG tube in place Neuro: SENSORIUM/ORIENTATION: No oriented to person, No oriented to place and No oriented to time COMATOSE PATIENT: corneal reflex present Urinary Catheter Management^: Mullen: Cath Placed During This Visit: yes, but has since been removed by the nurse Reason for Continuing Indwelling Catheter: Accurate Measurement of Urinary Output in Critically Ill Patients Urinary Catheter Date of Insertion: 04/17/21 Urinary Catheter Time of Insertion: 02:54 Date Urinary Catheter Removed: 04/17/21 Time Urinary Catheter Discontinued: 02:53 Data : 04/27/21 04:25 04/27/21 08:39 Micro: Microbiology 04/22/21 11:08 Blood Culture - Final Blood NO GROWTH AFTER 5 DAYS 04/22/21 11:04 Blood Culture - Final Blood NO GROWTH AFTER 5 DAYS A&P Assessment and plan (1) PEA (Pulseless electrical activity): -PEA -Possibly secondary to pulmonary embolism and or acute flash pulmonary edema -With underlying acute hypoxic respiratory failure secondary to COVID-19 pneumonia, acute respiratory distress syndrome, status post tracheostomy, status post percutaneous gastrostomy tube placement -Status post CPR -PEA -Return of circulation -EKG shows slight ST-T wave changes in inferior leads, discussed with cardiology, no evidence of acute VT, baseline troponin I 04, 120-minute, 98.33, 6hour 131.6, delta 27.6 -repeat echo Moderately decreased left ventricular systolic function. Left ventricular ejection fraction is estimated at 40 %. Global left ventricular hypokinesis. Grade I/IV diastolic dysfunction (abnormal relaxation filling pattern), normal to mildly elevated filling pressures. -Bilateral lower extremity ultrasound negative for DVT -CT angiogram cannot be performed due to creatinine -Currently on therapeutic Lovenox -With hyponatremia, serum sodium 128, likely secondary to diuretic, SIADH with sepsis, currently on hypertonic saline has been held, conivaptan 2 doses, nephrology on consult, continue to monitor serum sodiums -Continues to be fluid overloaded, generalized anasarca chest x-ray continues to show pulmonary vascular congestion, + 9.9 L, hyponatremia is improving, hold Lasix for today -Creatinine 1.8, continue to monitor, will consider restarting midodrine if blood pressures are borderline -Family declines CRRT for now -Septic shock on broad-spectrum antibiotic therapy, off pressor therapy, MAP around 65 -continue Levaquin, vancomycin, Primaxin, caspofungin -We will consider CT chest abdomen and pelvis to rule out underlying abscess, once more stable, however has remained afebrile, -Now alert, following basic commands, hold off on CT scan of the head -Hold off the EEG -No fevers -Follow blood cultures, sputum cultures show yeast -Hemoglobin stable, status post 1 unit PRBC, monitor hemoglobin -Start tube feeds, slow upward titration -Start bowel regimen lactulose, Colace -Hold fluid due to concerns for fluid overload -For A. fib with RVR, currently normal sinus rhythm, paroxysmal A. fib currently on p.o. Cardizem 60 every 6 hours, amiodarone 400 once daily, Lovenox as above -Ventilator, 80% % FiO2, continue ventilatory support, minimize PEEP, minimize FiO2 -For now we will discontinue sedation, low-dose hydrocodone scheduled, sedation should only be used if concerns for tachypnea, respiratory failure -Patient's family has made him DNR -Protonix 40 IV twice daily, Carafate -Therapeutic Lovenox -Status is stable, prognosis is guarded -Family wants to continue medical interventions, will work on placement to select Plan for today, slowly upward titrate tube feeds, bowel regimen, continue antibiotics, monitor respiratory status, continue neurologic testing and evaluation Status: Acute (2) Atrial fibrillation and flutter: Status: Acute (3) Hypoxemia: Hypoxia persists. Secondary to COVID-19 pneumonia, acute respiratory distress syndrome, FiO2 requirement up to 100%. Noted thrombophlebitis with thrombus within cephalic vein of left forearm. Continue cefepime, vancomycin. Sputum cultures were repeated 04/14. He has completed his course of remdesivir, and dexamethasone Initial antibiotic course of azithromycin, ceftriaxone. Tracheostomy performed late April 11 PEG tube was placed 04/13. Arrangements also underway for placement to long-term care. Status: Acute (4) COVID-19: Severe COVID-19 with ARDS. As above. Status: Acute (5) Ischemic cardiomyopathy: Status: Acute (6) Acute kidney injury: Status: Acute (7) Hyponatremia: Status: Acute (8) Atherosclerosis of coronary artery of [place] heart without angina pectoris: Continue cardiac medications. Status: Acute Qualifiers: Coronary Disease-Associated Artery/Lesion type: unspecified vessel or lesion type Qualified Code(s): I25.10 - Atherosclerotic heart disease of [place] coronary artery without angina pectoris (9) Dyslipidemia: Status: Acute (10) Benign essential HTN: Status: Acute (11) Neck mass: Indeterminate left neck mass measuring nearly 3 cm in size, does not appear to originate from the thyroid. CT scan neck demonstrated no mass Status: Acute (12) Fever: Recurrence. See notation above. Status: Acute (13) Septic shock: Status: Acute Additional A&P Information \ Attestations Medical Necessity Statement*: Patient requires hospitalization for acute respiratory failure secondary COVID-19, PAD, A. 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
[2021-04-27] MEDS: lactulose oral liq 20 gm/30 mL UDC PO (15:52)
[2021-04-27] MEDS: docusate sodium 100 mg Capsule PO (15:52)
[2021-04-27] MEDS: fentaNYL 50 mcg/mL INJ 2mL IVP ×2 (17:11→18:02)
[2021-04-27 18:36] LABS: Glucose Point of Care 105 mg/dL (70-110)
--- NOTE | 2021-04-27 20:06 | P.PN_ITS ---
Subjective Subjective: Interval history: -Patient seen at bedside today -Appeared more awake and following commands -There is significant leak through the trach and patient still requiring 70% FiO2; trach change to size 8 today -Labs and other imaging reviewed Medications: Reviewed: Yes Vitals/I&O/Wt Last Vital Signs Temp 98.2 F 04/27/21 11:30 Pulse 90 04/27/21 19:50 Resp 28 H 04/27/21 19:51 BP 127/79 04/27/21 15:00 Pulse Ox 94 04/27/21 19:51 04/27/21 04/27/21 04/27/21 06:59 14:59 22:59 Intake Total 100 / 1956.128 100 / 100 Output Total 800 / 2450 Balance -700 / -493.872 100 / 100 Weight last 48 hrs Weight 189 lb Weight 197 lb 6.4 oz Physical Exam Narrative: EXAM NARRATIVE: General: lying in bed, sedated and intubated. HEENT:NCAT, PERRLA, EOMI Neck: Supple; trach in place with no overt signs of bleeding Lungs: Bilateral diffuse coarse crackles Heart: s1/s2, RRR Abd: soft, NT, ND, BS + Normoactive Extremities: No edema SENIOR CENTER MANAGER: sedated and limited SENIOR CENTER MANAGER exam possible; opens eyes but does not follow commands SKIN: no rash LDA: # CVC: Left internal jugular vein 04/03/2021 # A line: Right radial arterial line 04/03/2021 Urinary Catheter Management^: Mullen: Cath Placed During This Visit: yes, but has since been removed by the nurse Reason for Continuing Indwelling Catheter: Accurate Measurement of Urinary Output in Critically Ill Patients Urinary Catheter Date of Insertion: 04/17/21 Urinary Catheter Time of Insertion: 02:54 Date Urinary Catheter Removed: 04/17/21 Time Urinary Catheter Discontinued: 02:53 Data : 04/27/21 04:25 04/28/21 05:13 Other Labs: Laboratory Results WBC 11.6 10^3/uL (4.0-10.0) H 04/27/21 04:25 Corrected WBC Cancelled 03/27/21 15:45 RBC 2.52 10^6/uL (4.1-5.3) L 04/27/21 04:25 Hgb 8.5 g/dL (11.7-16.6) L 04/27/21 04:25 Hct 25.6 % (42.0-52.0) L 04/27/21 04:25 MCV 101.6 fl (80-94) H 04/27/21 04:25 MCH 33.7 pg (28.0-34.0) 04/27/21 04:25 MCHC 33.2 g/dL (30.0-36.0) 04/27/21 04:25 RDW 13.4 % (12.1-15.1) 04/27/21 04:25 Plt Count 578 10^3/cmm (130-400) H 04/27/21 04:25 MPV 9.8 fL (7.4-10.4) 04/27/21 04:25 Gran % Cancelled 03/27/21 15:45 Neut % (Auto) 82.7 % 04/27/21 04:25 Lymph % (Auto) 6.7 % 04/27/21 04:25 [place] % (Auto) 6.6 % 04/27/21 04:25 Eos % (Auto) 0.9 % 04/27/21 04:25 Baso % (Auto) 0.2 % 04/27/21 04:25 Neut # (Auto) 9.57 10^3/uL (1.8-7.7) H 04/27/21 04:25 Lymph # (Auto) 0.8 10^3/uL (0.8-4.8) 04/27/21 04:25 [place] # (Auto) 0.8 10^3/uL (0.2-0.9) 04/27/21 04:25 Eos # (Auto) 0.1 10^3/uL (0.0-0.8) 04/27/21 04:25 Baso # (Auto) 0.0 10^3/uL (0.0-0.1) 04/27/21 04:25 Absolute Gran (auto) Cancelled 03/27/21 15:45 Nucleated RBC % (auto) 0 % 04/27/21 04:25 Total Counted 100 (0-100) 04/24/21 04:50 Atypical Lymphs % 1.0 % (0-5) 04/24/21 04:50 Absolute Neutrophils 6.3 10^3/cmm (1.4-6.5) 04/24/21 04:50 Segmented Neutrophils 65 % 04/24/21 04:50 Abs Segm Neuts (Man) 5.9 10/cmm (1.6-7.1) 04/24/21 04:50 Band Neutrophils 4.0 % 04/24/21 04:50 Abs Band Neuts (Man) 0.4 10^3/cmm (0.0-1.2) 04/24/21 04:50 Absolute Lymphocytes 0.7 10^3/cmm (1.2-3.4) L 04/24/21 04:50 Lymphocytes (Manual) 7 % 04/24/21 04:50 Monocytes (Manual) 3.0 % 04/24/21 04:50 Absolute Monocytes 0.3 10^3/cmm (0.1-0.6) 04/24/21 04:50 Eosinophils (Manual) 17 % 04/24/21 04:50 Absolute Eosinophils 1.5 10^3/cmm (0.0-0.7) H 04/24/21 04:50 Basophils (Manual) 0.0 % 04/24/21 04:50 Absolute Basophils 0.0 10^3/cmm (0.0-0.2) 04/24/21 04:50 Metamyelocytes 2.0 % 04/24/21 04:50 Nucleated RBCs # 0.0 /100WBC 04/27/21 04:25 Platelet Estimate Increased (Normal) 04/24/21 04:50 ESR 57 mm/hr (0-10) H 04/03/21 04:45 PT 14.70 SECONDS (12.1-14.9) 04/27/21 04:25 INR 1.12 (0.8-1.2) 04/27/21 04:25 D-Dimer 2.89 ug/mIFEU (0-0.59) H 04/24/21 04:50 Specimen Type Arterial 04/27/21 04:36 Sample Site Radial, right 04/27/21 04:36 ABG pH 7.45 (7.35-7.45) 04/27/21 04:36 ABG pCO2 53.8 mmHg (35-45) H 04/27/21 04:36 ABG pO2 58.8 mmHg (80.0-100.0) L 04/27/21 04:36 ABG HCO3 37.1 mmol/L (22-26) H 04/27/21 04:36 ABG O2 Saturation 98.9 04/04/21 03:46 ABG Base Excess 11.4 mmol/L (-2.0-2.0) H 04/27/21 04:36 Hoang Test Pos 04/27/21 04:36 A-a O2 Gradient 43.2 mmHg (5-10) H 04/04/21 03:46 Hematocrit 31.6 % (42-52) L 04/27/21 04:36 Hgb O2 Saturation 97.8 % (95-100) 04/04/21 03:46 Carboxyhemoglobin 0.1 %THgb (0.4-20.1) L 04/04/21 03:46 Methemoglobin 1.1 % (0.4-1.5) 04/04/21 03:46 Total Hemoglobin 13.9 g/dL (14-18) L 04/04/21 03:46 Sodium 141.0 mmol/L (131-143) 04/04/21 03:46 Potassium 4.0 mmol/L (3.5-5.0) 04/04/21 03:46 Glucose 141.0 mg/dL (70-115) H 04/04/21 03:46 Ionized Calcium 1.2 mmol/L (1.1-1.4) 04/04/21 03:46 Respiration Rate 14.0 % 04/07/21 04:37 O2 Delivery Device Vent 04/27/21 04:36 O2 Liters/Min 15.0 % 04/02/21 21:49 Vent Mode Cmv 04/07/21 04:37 Mechanical Rate 22.0 04/25/21 04:40 FiO2 85.0 % 04/27/21 04:36 Tidal Volume 0.40 04/27/21 04:36 PEEP 8.0 cmH20 04/27/21 04:36 Specimen Drawn By Chandni 04/07/21 04:37 Silica Mixer Operator ID Butt 04/27/21 04:36 Sodium 128 mmol/L (136-145) L 04/27/21 08:39 Potassium 3.3 mmol/L (3.5-5.1) L 04/27/21 08:39 Chloride 85 mmol/L (98-107) L 04/27/21 08:39 Carbon Dioxide 33 mmol/L (22-29) H 04/27/21 08:39 Anion Gap 13.3 (5-19) 04/27/21 08:39 BUN 23 mg/dL (8-23) 04/27/21 08:39 Creatinine 1.8 mg/dL (0.7-1.2) H 04/27/21 08:39 GFR Calculation 38.6 mL/min (90-130) L 04/27/21 08:39 Glucose 91 mg/dL (65-115) 04/27/21 08:39 POC Glucose 105 mg/dL (70-110) 04/27/21 18:14 Estimat Average Glucose 123 03/28/21 05:50 Hemoglobin A1c 5.9 % (4.0-6.0) 03/28/21 05:50 Serum Osmolality 244 mOsm/kg (278-305) L 04/24/21 11:40 Calculated Osmolality 269 mOsm/kg (285-295) L 04/27/21 08:39 Lactic Acid 1.8 mmol/L (0.5-2.2) 03/27/21 15:45 Lactate 1.1 mmol/L (0.5-2.2) 04/27/21 04:25 Calcium 8.0 mg/dL (8.5-10.5) L 04/27/21 08:39 Phosphorus 2.9 mg/dL (2.5-4.5) 04/27/21 08:39 Magnesium 1.9 mg/dL (1.7-2.3) 04/27/21 11:53 Iron 32 ug/dL (59-158) L 03/27/21 19:06 TIBC 190 mcg/dl 03/27/21 19:06 % Saturation 16.8 % (20-50) L 03/27/21 19:06 Unsat Iron Binding 158 ug/dL (112-347) 03/27/21 19:06 Ferritin 2350 ng/mL (30-400) H 03/30/21 05:23 Total Bilirubin 0.6 mg/dL (0.15-1.2) 04/27/21 08:39 AST 73 U/L (0-40) H 04/27/21 08:39 ALT 18 U/L (0-41) 04/27/21 08:39 Alkaline Phosphatase 156 IU/L (40-130) H 04/27/21 08:39 Ammonia 28 umol/L (16-60) 04/14/21 14:28 Creatine Kinase 64 U/L (39-308) 04/27/21 08:39 Troponin T Gen 5 ng/L 28 ng/L (0-15) H 04/22/21 11:08 Troponin T Baseline 104 ng/L (0-15) H* 04/21/21 10:25 Troponin T 120 Minute 98.33 ng/L (0-15) H 04/21/21 12:33 Delta Troponin T -5.67 ABS# (0-10) L 04/21/21 12:33 Troponin T Hi Sens 6Hr 131.6 ng/L (0-15) H 04/21/21 16:54 Troponin T Hi Sens 6Hr Delta 27.6 ng/L (0-12) H* 04/21/21 16:54 C-Reactive Protein 50.4 mg/L (0.0-4.9) H 04/27/21 08:39 NT-Pro-B Natriuret Pep 43687 pg/mL (0-125) H 04/27/21 08:39 Total Protein 6.5 g/dL (6.6-8.7) L 04/27/21 08:39 Albumin 2.8 g/dL (3.5-5.2) L 04/27/21 08:39 Globulin 3.7 g/dL (1.3-4.6) 04/27/21 08:39 Triglycerides 75 mg/dL (0-150) 03/28/21 05:50 Cholesterol 115 mg/dL (0-200) 03/28/21 05:50 LDL Cholesterol, Calc 67 mg/dL (50-129) 03/28/21 05:50 Total VLDL Cholesterol 15 mg/dL (0-30) 03/28/21 05:50 HDL Cholesterol 33 mg/dL (60-100) L 03/28/21 05:50 Cholesterol/HDL Ratio 3.48 mg/dL (1.0-5.00) 03/28/21 05:50 Vitamin B12 851 pg/mL (232-1245) 04/06/21 03:00 Folate 6.7 ng/mL (4.5-32.2) 04/06/21 03:00 Procalcitonin 0.48 ng/mL (0-0.5) 04/27/21 08:39 TSH 2.12 uIU/mL (0.27-4.20) 04/24/21 11:40 Random Cortisol 9.06 ug/dL (2.47-19.5) 04/24/21 11:40 Urine Color Yellow (Yellow) 03/28/21 03:15 Urine Appearance Sl hazy (CLEAR) 03/28/21 03:15 Urine pH 5 (5-7) 03/28/21 03:15 Ur Specific [place] 1.020 (1.005-1.030) 03/28/21 03:15 Urine Protein 3+ (Negative) H 03/28/21 03:15 Urine Glucose (UA) Norm (Normal) 03/28/21 03:15 Urine Ketones Negative (Negative) 03/28/21 03:15 Urine Blood 3+ (Negative) H 03/28/21 03:15 Urine Nitrate Negative (Negative) 03/28/21 03:15 Urine Bilirubin Neg (Negative) 03/28/21 03:15 Urine Urobilinogen Norm mg/dL (Negative) 03/28/21 03:15 Ur Leukocyte Esterase Negative (Negative) 03/28/21 03:15 Urine RBC 0-4 /hpf (0-2) H 03/28/21 03:15 Urine WBC 0-4 /hpf (0-5) H 03/28/21 03:15 Ur Squamous Epith Cells 0-4 /hpf (0-5) H 03/28/21 03:15 Ur Renal Epithelial Cell 0 /hpf 03/28/21 03:15 Calcium Oxalate Crystal 0-4 /hpf H 03/28/21 03:15 Amorphous Sediment 3+ /hpf 03/28/21 03:15 Urine Bacteria Trace /hpf (NONE) 03/28/21 03:15 Coarse Granular Casts 0-4 /lpf H 03/28/21 03:15 Urine Osmolality 311 mOsm/kg (50-1200) 04/24/21 16:35 Ur Random Sodium 52 mmol/L 04/24/21 16:35 Ur Random Potassium 62 mmol/L 03/28/21 03:15 Ur Random Chloride 12 mmol/L 03/28/21 03:15 Urine Creatinine 160 mg/dL (39-259) 03/28/21 03:15 Vancomycin Trough 18.1 ug/mL (10-15) H 04/18/21 15:08 Misc Test Reference See comment 04/16/21 08:00 Blood Type O Positive 04/21/21 12:33 Rho(D) Type Positive 04/21/21 12:33 Antibody Screen Negative 04/21/21 12:33 Crossmatch See Detail 04/21/21 12:33 Impressions Head/Neck Ultrasound 04/03/21 17:42 IMPRESSION: Indeterminate left neck mass measuring nearly 3 cm in size. This does not appear to originate from the thyroid. Further evaluation with CT is recommended. Soft Tissue Neck X-Ray 04/03/21 17:42 IMPRESSION: Limited evaluation of left neck mass due to modality and overlying medical equipment. For further evaluation, would recommend CT of the neck. Neck CT 04/10/21 09:19 IMPRESSION: 1. No evidence of neck mass that would correspond to the previously described ultrasound findings. 2. Thyroid is normal in appearance. 3. A few prominent mediastinal lymph nodes at the thoracic inlet likely reactive. 4. Hazy ground glass infiltrates in the lung apices compatible with COVID 19 Pneumonia. 5. Endotracheal tube with tip above the can. Partially visualized enteric tube. 6. Left IJ catheter extends into the innominate and SVC off the [id number]. Chest CTA 04/15/21 09:23 IMPRESSION: 1. No evidence of pulmonary emboli within the limitations of the examination described in the body of the report. 2. Patulous peripheral ground-glass opacities within the lungs consistent with COVID pneumonia. There are mild areas of traction bronchiectasis in these regions suggestive of underlying scarring/fibrosis. Radiation Dose CTDIVOL = (mGy): DLP = 541.82 (mGy-cm) Abdomen Ultrasound 04/20/21 09:02 IMPRESSION: 1. Technically limited evaluation of the RIGHT upper quadrant. 2. Normal gallbladder. 3. No bile duct dilatation. Venous Duplex 04/21/21 11:06 IMPRESSION: No sonographic evidence of deep vein thrombosis. Chest X-Ray 04/27/21 07:00 Impression: 1. No change in tracheal tube and right PICC line. 2. No change in diffuse pulmonary opacities. Micro: Microbiology 04/22/21 11:08 Blood Culture - Final Blood NO GROWTH AFTER 5 DAYS 04/22/21 11:04 Blood Culture - Final Blood NO GROWTH AFTER 5 DAYS A&P Assessment and plan (1) Acute hypoxemic respiratory failure due to severe acute respiratory syndrome coronavirus 2 (SARS-CoV-2) disease: Status: Acute (2) Acute kidney injury: Status: Acute (3) Hyponatremia: Status: Acute (4) COVID-19: Status: Acute (5) Ischemic cardiomyopathy: Status: Acute (6) Benign essential HTN: Status: Acute (7) Counseling regarding advanced directives and goals of care: Status: Acute (8) PEA (Pulseless electrical activity): Status: Acute #Acute hypoxic respiratory failure secondary to ARDS due to COVID-19 pneumonia #Concern for alcohol withdrawal -as patient takes alcohol every night -Symptoms started 03/20/2021; Test + 03/26/2021, CT 03/28/2020 were negative for pulmonary embolism -Intubated 04/02/2021 -s/p tracheostomy 04/11/2021, trach changed to size 04/05/2021 -Completed 3 proning sessions -Currently on CMV-400/8/85% % and ABG 7.4 5/53/58/37 -Chest x-ray : Extensive bilateral pulmonary infiltrates appearing slightly more consolidated than noted on the prior study earlier on the same day -Currently only on propofol -earlier received 1 dose of phenobarbital 130 MCG for alcohol withdrawal -Recommended [place] 5-325 twice daily for pain -Seroquel 25 mg at bedtime -DuoNeb every 4 scheduled, Pulmicort 0.5 twice daily scheduled -S/p dexamethasone 6 mg daily & Completed remdesivir 5-day course and extended 5 more days -Completed adequate Rocephin and azithromycin for empiric coverage -Later had low-grade fever spikes on 04/21/2021-all cultures negative so far except sputum 04/13/2021 grew yeast -Patient on linezolid, imipenem, Levaquin and micafungin-recommended to discontinue all antibiotics -Recommended to DC central line -CRP 91 -Currently on Lovenox for DVT prophylaxi #Ischemic cardiomyopathy #S/p PEA 1 week ago and returned to spontaneous circulation #A. fib RVR since cardiac arrest-on amiodarone and diltiazem - 12/22/2020 stress test-large area of old myocardial infarction vs scarring -12/22/2020 echo-normal LV cavity size with EF estimated 45% -repeat echo Moderately decreased left ventricular systolic function. Left ventricular ejection fraction is estimated at 40 %. Global left ventricular hypokinesis. Grade I/IV diastolic dysfunction (abnormal relaxation filling pattern), normal to mildly elevated filling pressures. -Bilateral lower extremity ultrasound negative for DVT -CT angiogram cannot be performed due to creatinine -Aspirin 81/Imdur 30/metoprolol 50/atorvastatin 20 -Keep net negative to even -Lasix as needed #Renal functions improving #Hyponatremia-improving -Lasix as needed to keep patient even to net negative -Supplemented-monitor #Deranged LFTs likely secondary to COVID-19 pneumonia-initially improved and now gradually worsening -Monitor LFTs #Neck swelling -Soft tissue neck x-ray: limited evaluation of left neck mass due to modality and overlying medical equipment -:Neck ultrasound: solid-appearing left neck mass measuring 2.9 x 2.7 cm of unclear origin,does not appear to originate from the thyroid. -CT neck: no evidence of neck mass that would correspond to the previously described ultrasound findings #Initial 2 days there was difficulty passing NG tube, later successfully inserted and advanced. -Currently patient PEG tube since 04/13/2001 -Continue tube feeding - Goal rate of 50 cc/h #Glucose well controlled #GI prophylaxis famotidine #DVT prophylaxis-Lovenox 40 #DNR-family wants to continue full care #Family updated #Prognosis guarded Currently patient is awaiting for long-term acute care facility placement Recommendations conveyed to hospitalist, RN, RT taking care of the patient Attestations Medical Necessity Statement*: Acute hypoxic respiratory failure secondary to ARDS due to COVID-19 pneumonia-intubated and mechanically ventilated and currently being proned still requiring high FiO2 Time Spent in Patient Care: Greater than 35 minutes (>than 50% of time spent in counselling and/or direct pt care on unit) . Critical Care Time: The high probability of a clinically significant, sudden or life threatening deterioration of the patient's [pulmonary, neurological, hepatic] system(s) required my full and direct attention, intervention and personal management. The critical care time is as shown. This time is in addition to time spent performing any reported procedures but includes the following: [x] Data and vital sign review and interpretation [x] Patient assessment, examination and intervention [x] Documentation [x] Medication orders and management Critical Care Time (min): 45 Coding Level of Care Code Established Pt Acute Learning Administrator for Chg Fwd Patient Type Established History Comprehensive Exam Comprehensive Medical Decision Making High Complexity Diagnoses Acute hypoxemic respiratory failure due to severe acute respiratory syndrome coronavirus 2 (SARS-CoV-2) disease U07.1; J96.01 Acute kidney injury N17.9 Hyponatremia E87.1 COVID-19 U07.1 Ischemic cardiomyopathy I25.5 Benign essential HTN I10 Counseling regarding advanced directives and goals of care Z71.89 PEA (Pulseless electrical activity) I46.9 Time Spent (min) 45
[2021-04-27 20:53] LABS: Magnesium 1.8 mg/dL (1.7-2.3)
[2021-04-27] MEDS: atorvastatin 40 mg Tablet PO (21:19)
[2021-04-28] VITALS (67 sets, daily range): BP systolic 89–129; BP diastolic 49–75; PULSE 77–99; RESP 14–31; TEMP 37.2–37.8; O2SAT 78–94; BMI 28.6
[2021-04-28] MEDS: ipratropium-albuterol 3 mL Neb INHALATION ×7 (00:47→23:36)
[2021-04-28 01:28] LABS: Magnesium 1.7 mg/dL (1.7-2.3)
[2021-04-28] MEDS: lactulose oral liq 20 gm/30 mL UDC PO (01:58)
[2021-04-28] MEDS: dilTIAZem 60 mg Tablet PO ×4 (01:58→20:11)
[2021-04-28] MEDS: docusate sodium 100 mg Capsule PO (01:59)
[2021-04-28] MEDS: pantoprazole 40 mg SDV IVP ×2 (04:58→15:45)
[2021-04-28] MEDS: HYDROcodone-acetaminophen 5-325 mg Tablet 1 TAB PO ×2 (04:59→17:57)
[2021-04-28 05:05] LABS: ABG PCO2 57.5 mmHg (35-45); ABG PH Result 7.41 (7.35-7.45); Arterial Blood Gas Hematocrit 29.5 % (42-52); Base Excess ABG 10.5 mmol/L (-2.0-2.0); Blood Gas Sample Site Brachial, right; Blood Gas Sample Type Arterial; HCO3 ABG 36.7 mmol/L (22-26); Oxygen Device VENT; PO2 ABG 65.8 mmHg (80.0-100.0)
--- NOTE | 2021-04-28 06:18 | PC.NURSE ---
Shift Note Frequent safety and comfort rounds continue. Orders and/or nursing care completed as indicated. Patient monitored for response to intervention and treatment(s). Education provided includes trach care. Patient requires reinforcement teaching. Patient follows commands but remains non-verbal and has little use of extremities. Right PICC line and right wrist IV are saline locked at this time. Tube feedings are infusing in peg tube at 30 mls/hr with 125 ml free water flushes every [address] de león. No gastric residual when aspirated. Vent settings are as follows; mode-CMV, Fio2-80%, VT-400, rate-22, PEEP-8. Mullen catheter drained 1900 mls of tea colored urine all evening. Other than surgical incisions for PEG tube and trach, patient has no wounds or skin issues noted at this time. Will continue to monitor.
[2021-04-28] MEDS: sucralfate 1 gm Tablet PO ×4 (07:25→20:10)
[2021-04-28] MEDS: ferrous gluconate 324 mg Tablet PO ×2 (08:03→17:58)
[2021-04-28] MEDS: linezolid premix 600 MG/300 ML PREMIX 300 MG IV ×2 (08:06→20:11)
--- NOTE | 2021-04-28 08:10 | PM.PN ---
Subjective Subjective: Interval history: No new events since yesterday. He remained stable. Ventilator settings reviewed, FiO2 80% (slight increase since yesterday), some coarse rhonchi on lung auscultation per RN and mild edema. Labs pending for today. Hemodynamic stable overnight. Medications: Reviewed: Yes Medication Review Details: Current Medications Acetaminophen (Acetaminophen 325 Mg Tablet) 650 mg PO Q6H PRN PRN Reason: Mild/Mod Pain Or Temp >/= 101 Last Admin: 04/21/21 09:00 Dose: 650 mg Documented by: Albuterol Sulfate (Albuterol 2.5 Mg/0.5 Ml Neb) 2.5 mg INHALATION Q4H.RESPIRATORY PRN PRN Reason: SHORTNESS OF BREATH Albuterol/Ipratropium (Ipratropium-Albuterol 3 Ml Neb) 3 ml INHALATION Q4H.RESPIRATORY [facility] Last Admin: 04/26/21 03:21 Dose: 3 ml Documented by: Amiodarone HCl (Amiodarone 200 Mg Tablet) 400 mg PO DAILY [facility] Last Admin: 04/25/21 09:00 Dose: 400 mg Documented by: Artificial Tears (Artificial Tears Op Oint 3.5 Gm) 1 applic EYE-BOTH PRN PRN PRN Reason: DRY EYE(S) Aspirin (Aspirin 81 Mg Ec Tablet) 81 mg PO DAILY [facility] Last Admin: 04/25/21 08:47 Dose: 81 mg Documented by: Atorvastatin Calcium (Atorvastatin 40 Mg Tablet) 40 mg PO BEDTIME [facility] Last Admin: 04/25/21 20:07 Dose: 40 mg Documented by: Budesonide (Budesonide 0.5 Mg/2 Ml Neb) 0.5 mg INHALATION BID.RESPIRATORY [facility] Last Admin: 04/25/21 20:56 Dose: 0.5 mg Documented by: Bumetanide (Bumetanide 0.25 Mg/Ml Sdv 4 Ml) 1 mg IV Q12H [facility] Last Admin: 04/23/21 12:16 Dose: 1 mg Documented by: Diltiazem HCl (Diltiazem 60 Mg Tablet) 60 mg PO Q6H [facility] Last Admin: 04/26/21 01:21 Dose: 60 mg Documented by: Enoxaparin Sodium (Enoxaparin 80 Mg/0.8 Ml Syringe) 80 mg SUBCUT Q12H [facility] Last Admin: 04/25/21 22:24 Dose: 80 mg Documented by: Ferrous Gluconate (Ferrous Gluconate 324 Mg Tablet) 324 mg PO BIDWM [facility] Last Admin: 04/25/21 17:37 Dose: 324 mg Documented by: Folic Acid (Folic Acid 1 Mg Tablet) 1 mg PO DAILY [facility] Last Admin: 04/25/21 08:47 Dose: 1 mg Documented by: Guaifenesin (Guaifenesin 600 Mg Tablet) 600 mg PO BID [facility] Last Admin: 04/25/21 17:36 Dose: 600 mg Documented by: Caspofungin 50 mg/ Sodium (Chloride) 250 mls @ 250 mls/hr IV Q24H [facility] Last Admin: 04/25/21 15:28 Dose: Not Given Documented by: Norepinephrine Bitartrate 8 mg (/ Dextrose) 508 mls @ 0 mls/hr IV .Q0M [facility]; Protocol Last Titration: 04/26/21 04:44 Dose: 0 mcg/min, 0 mls/hr Documented by: Vasopressin 40 unit/ Sodium (Chloride) 40 mls @ 0.03 mls/min IV CONT [facility] Last Admin: 04/25/21 12:06 Dose: Not Given Documented by: Levofloxacin/Dextrose (Levaquin-D5w) 750 mg in 150 mls @ 100 mls/hr IV Q24H [facility]; Protocol Last Infusion: 04/25/21 18:53 Dose: Infused Documented by: Propofol (Diprivan) 1,000 mg in 100 mls @ 0 mls/hr IV .Q0M [facility]; Protocol Last Titration: 04/26/21 04:44 Dose: 10 mcg/kg/min, 5.18 mls/hr Documented by: Albumin Human (Albumin) 25 gm in 100 mls @ 60 mls/hr IV Q8H [facility] Last Infusion: 04/24/21 05:37 Dose: Infused Documented by: Linezolid (Zyvox Premix) 600 mg in 300 mls @ 300 mls/hr IV Q12H [facility]; Protocol Last Infusion: 04/25/21 21:30 Dose: Infused Documented by: Sodium Chloride (Sodium Chloride 3%) 500 mls @ 30 mls/hr IV .[id number] [facility] Last Infusion: 04/25/21 17:04 Dose: 40 mls/hr Documented by: Imipenem/Cilastatin Sodium 500 (mg/ Sodium Chloride) 100 mls @ 200 mls/hr IV Q8H [facility] Last Infusion: 04/25/21 23:32 Dose: Infused Documented by: Lanolin (Lanolin Oint 7 Gm) 1 applic TOPICAL PRN PRN PRN Reason: DRYNESS Last Admin: 04/16/21 08:03 Dose: 1 applic Documented by: Lorazepam (Lorazepam 2 Mg/Ml Inj 1 Ml) 1 mg IVP Q6H PRN PRN Reason: ANXIETY Last Admin: 04/21/21 07:58 Dose: 1 mg Documented by: Metolazone (Metolazone 5 Mg Tablet) 10 mg PO DAILY [facility] Last Admin: 04/23/21 13:27 Dose: 10 mg Documented by: Multivitamins Therapeutic (Multivitamin Therapeutic Tablet) 1 tab PO DAILY [facility] Last Admin: 04/25/21 08:47 Dose: 1 tab Documented by: Nitroglycerin (Nitroglycerin 0.4 Mg Sublingual Tablet) 0.4 mg SUBLINGUAL Q5M PRN PRN Reason: Chest Pain Nystatin (Nystatin Powder 15 Gm Btl) 1 applic TOPICAL QID PRN PRN Reason: RASH Last Admin: 04/17/21 09:34 Dose: 1 applic Documented by: Ondansetron HCl (Ondansetron 2 Mg/Ml Sdv 2 Ml) 4 mg IVP Q8H PRN PRN Reason: vomiting, or N/V if npo Pantoprazole Sodium (Pantoprazole 40 Mg Sdv) 40 mg IVP Q12H [facility] Last Admin: 04/26/21 03:10 Dose: 40 mg Documented by: Quetiapine Fumarate (Quetiapine 100 Mg Tablet) 50 mg PO BID [facility] Last Admin: 04/25/21 17:36 Dose: 50 mg Documented by: Senna (Sennosides 8.6 Mg Tablet) 17.2 mg PO BID [facility] Last Admin: 04/25/21 17:36 Dose: 17.2 mg Documented by: Sucralfate (Sucralfate 1 Gm Tablet) 1 gm PO AC&BEDTIME [facility] Last Admin: 04/26/21 06:07 Dose: 1 gm Documented by: Thiamine Mononitrate (Thiamine 100 Mg Tablet) 100 mg PO DAILY [facility] Last Admin: 04/25/21 08:47 Dose: 100 mg Documented by: Vitals/I&O/Wt Last Vital Signs Temp 99.7 F H 04/28/21 05:00 Pulse 85 04/28/21 06:00 Resp 30 H 04/28/21 03:58 BP 111/66 04/28/21 06:00 Pulse Ox 93 04/28/21 06:00 04/27/21 04/28/21 04/28/21 22:59 06:59 14:59 Intake Total 650 / 1050 332 / 1382 Output Total 400 / 400 1900 / 2300 Balance 250 / 650 -1568 / -918 Weight last 48 hrs Weight 88.082 kg Weight 85.729 kg Physical Exam Narrative: EXAM NARRATIVE: Constitutional: minimally interactive HEENT: Wet mucosa, no jvp, non icteric Lungs: Bilaterally rales, wheezing, diminished CVS: S1 S2, no murmurs Abdo: Soft, BS ok Ext 4: Global anasarca, peripheral perfusion with no cyanosis Neurological: Sedated Urinary Catheter Management^: Mullen: Cath Placed During This Visit: yes, but has since been removed by the nurse Reason for Continuing Indwelling Catheter: Accurate Measurement of Urinary Output in Critically Ill Patients Urinary Catheter Date of Insertion: 04/17/21 Urinary Catheter Time of Insertion: 02:54 Date Urinary Catheter Removed: 04/17/21 Time Urinary Catheter Discontinued: 02:53 Data : 04/27/21 04:25 04/27/21 08:39 Micro: Microbiology 04/22/21 11:08 Blood Culture - Final Blood NO GROWTH AFTER 5 DAYS 04/22/21 11:04 Blood Culture - Final Blood NO GROWTH AFTER 5 DAYS A&P Additional A&P Information 1. Hyponatremia labs pending this morning On FWF; will monitor for now, may need to stop these if sodium drifts down again Hold thiazide diuretics. Okay to use loop diuretics if needed. 2. Acute kidney injury Creatinine improving Strict I's and O's Daily renal panel, strict I's and O's No indication for renal replacement therapy at this time Dose medication for GFR less than 30 3. Covid pneumonitis Currently on trach with high ventilator settings. Status post remdesivir and Decadron, currently receiving combination antibiotic therapy as well. Dose Lasix today given increase in FiO2 and mild hypervolemia 4. Hemodynamics Atrial fibrillation with RVR since cardiac arrest Amiodarone and diltiazem on board Off pressor agents at this time Multisystem organ failure in the setting of Covid pneumonitis ; poor prognosis. Family input is appreciated; they wish cont care for time being although he remains DNR Stuart Keane MD Nephrology [phone] Patient seen and examined via telemedicine, with the assistance of the bedside RN > 25 min spent in evaluation and mgmt of patient Attestations Medical Necessity Statement*: Eval for ADONIS Coding Level of Care Code Acute Medical Policy Specialist for Chg Rhonda
[2021-04-28] MEDS: budesonide 0.5 mg/2 mL Neb INHALATION ×2 (08:29→20:09)
[2021-04-28] MEDS: guaiFENesin 600 mg Tablet PO ×2 (09:15→17:58)
[2021-04-28] MEDS: folic acid 1 mg Tablet PO (09:15)
[2021-04-28] MEDS: aspirin 81 mg EC Tablet PO (09:15)
[2021-04-28] MEDS: amiodarone 200 mg Tablet 400 MG PO (09:16)
[2021-04-28] MEDS: thiamine 100 mg Tablet PO (09:16)
[2021-04-28] MEDS: enoxaparin 80 mg/0.8 mL Syringe SUBCUT (09:16)
[2021-04-28] MEDS: multivitamin therapeutic Tablet 1 TAB PO (09:16)
[2021-04-28] MEDS: sennosides 8.6 mg Tablet 17.2 MG PO (09:16)
[2021-04-28] MEDS: FUROsemide 10 mg/mL SDV 4mL 40 MG IVP (09:17)
[2021-04-28 09:42] LABS: Basophils # 0.1 10^3/uL (0.0-0.1); Basophils % 0.4 %; Eosinophils # 0.2 10^3/uL (0.0-0.8); Eosinophils % 1.1 %; Hematocrit 27.3 % (42.0-52.0); Hemoglobin 8.8 g/dL (11.7-16.6); Lymphocytes # 1.1 10^3/uL (0.8-4.8); Lymphocytes % 7.4 %; Mean Corpuscular HGB Conc 32.2 g/dL (30.0-36.0); Mean Corpuscular Hemoglobin 33.1 pg (28.0-34.0); Mean Corpuscular Volume 102.6 fl (80-94); Mean Platelet Volume 9.5 fL (7.4-10.4); Monocytes # 1.3 10^3/uL (0.2-0.9); Monocytes % 8.8 %; Neutrophils # 12.35 10^3/uL (1.8-7.7); Nucleated Red Blood Cells % 0 %; Platelet Count 620 10^3/cmm (130-400); Red Blood Count 2.66 10^6/uL (4.1-5.3); Red Cell Distribution Width 13.5 % (12.1-15.1); White Blood Count 15.2 10^3/uL (4.0-10.0)
[2021-04-28 09:59] LABS: INR 1.04 (0.8-1.2)
[2021-04-28 10:17] LABS: Lactate (Lactic Acid level) 1.6 mmol/L (0.5-2.2)
[2021-04-28 10:28] LABS: NT Pro B Type Natriuretic Pept 30564 pg/mL (0-125); Procalcitonin 0.35 ng/mL (0-0.5)
[2021-04-28 10:40] LABS: Alanine Aminotransferase 14 U/L (0-41); Albumin Level 2.6 g/dL (3.5-5.2); Alkaline Phosphatase 148 IU/L (40-130); Anion Gap 15.4 (5-19); Aspartate Amino Transferase 53 U/L (0-40); Blood Urea Nitrogen 29 mg/dL (8-23); C Reactive Protein 52.5 mg/L (0.0-4.9); Calcium 8.2 mg/dL (8.5-10.5); Carbon Dioxide 31 mmol/L (22-29); Chloride 89 mmol/L (98-107); Globulin 3.4 g/dL (1.3-4.6); Glomerular Filtration Rate 44.2 mL/min (90-130); Glucose 107 mg/dL (65-115); Magnesium 1.8 mg/dL (1.7-2.3); Osmolality Calculated 280 mOsm/kg (285-295); Phosphorus 2.6 mg/dL (2.5-4.5); Potassium 3.4 mmol/L (3.5-5.1); Sodium 132 mmol/L (136-145); Total Bilirubin 0.6 mg/dL (0.15-1.2)
[2021-04-28 11:07] LABS: Creatine Phosphokinase 33 U/L (39-308)
--- NOTE | 2021-04-28 12:24 | PC.NUTR ---
Tube feeding recommendation: TF resumed on 04/27 per chart, however nursing appears to be following a verbal MD order that was not found in chart by this RD. Contacted Dr. Subramanian requesting clarification of order. Current rate of 30 ml/hr providing on 40% estimated kcal needs. Recommend increasing TF as tolerated to goal rate of 50 ml/hr, with 100 ml H2O flushes q 4 hrs to provide 1440 kcal, 66 g protein, and 1568 ml H2O. If well tolerated, eventual goal to meet nutritional needs would be 70 ml/hr, however given 5 days of no nutrition, suggest monitor tolerance at 50 ml/hr first. See full RD assessment for further details.
--- NOTE | 2021-04-28 13:01 | PC.NURSE ---
Telephone order from Dr. Subramanian at approximately 1300 to change free water flow rate from 125ml Q4 hr to 100ml Q4 hr. Order completed promptly.
--- NOTE | 2021-04-28 13:19 | P.PN_ITS ---
Subjective Subjective: Interval history: Patient was seen this morning, he is alert, he does follow commands, is able to squeeze my fingers, able to wiggle his toes, able to close his eyes, but other times remains dazed, he has had low-grade temperatures overnight, normotensive, 60% FiO2, +8 L, Vitals/I&O/Wt Last Vital Signs Temp 100.0 F H 04/28/21 12:28 Pulse 83 04/28/21 12:28 Resp 14 04/28/21 12:28 BP 117/63 04/28/21 12:28 Pulse Ox 90 04/28/21 12:28 04/27/21 04/28/21 04/28/21 22:59 06:59 14:59 Intake Total 650 / 1050 332 / 1382 400 / 400 Output Total 400 / 400 1900 / 2300 1000 / 1000 Balance 250 / 650 -1568 / -918 -600 / -600 Weight last 48 hrs Weight 88.082 kg Weight 85.729 kg Physical Exam Const: COMMON NORMALS: no acute distress GENERAL APPEARANCE: ill appearing and frail appearing NUTRITIONAL APPEARANCE: thin ORIENTATION/CONSCIOUSNESS: Yes awake and Yes oriented to person; not oriented to place and not oriented to time Resp: COMMON NORMALS: normal respiratory effort, No retractions and No use of accessory muscles AUSCULTATION: wheezes Cardio: COMMON NORMALS: regular rate, regular rhythm, S1 normal heart sound present and S2 normal heart sound present RATE: regular rate RHYTHM: regular rhythm HEART SOUNDS: S1 normal heart sound present and S2 normal heart sound present GI: COMMON NORMALS: Normal to inspection, nondistended, normoactive bowel sounds present, Soft to palpation and non-tender PALPATION: Yes Soft to palpation Extremity: COMMON NORMALS: no pedal edema Neuro: SENSORIUM/ORIENTATION: Yes oriented to person, No oriented to place and No oriented to time OTHER: Pupils equal round reactive to light, withdraws from pain, is able to squeeze my fingers bilaterally, wiggle his toes bilaterally, able to look towards me Urinary Catheter Management^: Mullen: Cath Placed During This Visit: yes, but has since been removed by the nurse Reason for Continuing Indwelling Catheter: Accurate Measurement of Urinary Output in Critically Ill Patients Urinary Catheter Date of Insertion: 04/17/21 Urinary Catheter Time of Insertion: 02:54 Date Urinary Catheter Removed: 04/17/21 Time Urinary Catheter Discontinued: 02:53 Data : 04/28/21 09:13 04/28/21 09:13 Micro: Microbiology 04/28/21 08:38 Bacterial Antigens - Final Urine Suprapubic 04/28/21 09:13 Blood Culture - Preliminary Blood SPECIMEN COLLECTED 04/28/21 09:16 Blood Culture - Preliminary Blood SPECIMEN COLLECTED 04/22/21 11:08 Blood Culture - Final Blood NO GROWTH AFTER 5 DAYS 04/22/21 11:04 Blood Culture - Final Blood NO GROWTH AFTER 5 DAYS A&P Assessment and plan (1) PEA (Pulseless electrical activity): -PEA -Possibly secondary to pulmonary embolism and or acute flash pulmonary edema -With underlying acute hypoxic respiratory failure secondary to COVID-19 pneumonia, acute respiratory distress syndrome, status post tracheostomy, status post percutaneous gastrostomy tube placement -Status post CPR -PEA -Return of circulation -EKG shows slight ST-T wave changes in inferior leads, discussed with cardiology, no evidence of acute [place], baseline troponin I 04, 120-minute, 98.33, 6hour 131.6, delta 27.6 -repeat echo Moderately decreased left ventricular systolic function. Left ventricular ejection fraction is estimated at 40 %. Global left ventricular hypokinesis. Grade I/IV diastolic dysfunction (abnormal relaxation filling pattern), normal to mildly elevated filling pressures. -Bilateral lower extremity ultrasound negative for DVT -CT angiogram cannot be performed due to creatinine -Currently on therapeutic Lovenox -With hyponatremia, serum sodium 132, likely secondary to diuretic, SIADH with sepsis, hypertonic saline has been discontinued, conivaptan 2 doses, nephrology on consult, continue to monitor serum sodiums -Continues to be fluid overloaded, generalized anasarca chest x-ray continues to show pulmonary vascular congestion, + 8 L, hyponatremia is improving, hold Lasix for today -Creatinine 1.6, continue to monitor, will consider restarting midodrine if blood pressures are borderline -Family declines CRRT for now -Septic shock on broad-spectrum antibiotic therapy, off pressor therapy, MAP around 65 -continue Levaquin, vancomycin, Primaxin, caspofungin -Will order CT chest abdomen and pelvis to rule out underlying abscess, once more stable, however has remained afebrile, -Now alert, following basic commands, -Hold off the EEG -Low-grade fevers today -Follow blood cultures, sputum cultures show yeast, repeat cultures -Hemoglobin stable, status post 1 unit PRBC, monitor hemoglobin -Start tube feeds, slow upward titration, goal 50 cc an hour with free water flushes 100 cc every 4 hours -Start bowel regimen lactulose, Colace -Hold fluid due to concerns for fluid overload -For A. fib with RVR, currently normal sinus rhythm, paroxysmal A. fib currently on p.o. Cardizem 60 every 6 hours, amiodarone 400 once daily, Lovenox as above -Ventilator, 80% % FiO2, wean PEEP and FiO2 as tolerated, continue ventilatory support, minimize PEEP, minimize FiO2 -For now we will discontinue sedation, low-dose hydrocodone scheduled, sedation should only be used if concerns for tachypnea, respiratory failure -Patient's family has made him DNR -Tracheostomy in place, trach might require replacement depending on tidal volume generated -PEG tube in place -Mullen catheter in place -Right PICC line in place -Protonix 40 IV twice daily, Carafate -Therapeutic Lovenox -Status is stable, prognosis is guarded -Family wants to continue medical interventions, will work on placement to select Plan for today, slowly upward titrate tube feeds, bowel regimen, continue antibiotics, monitor respiratory status, wean oxygen, will do CT imaging Status: Acute (2) Atrial fibrillation and flutter: Status: Acute (3) Hypoxemia: Hypoxia persists. Secondary to COVID-19 pneumonia, acute respiratory distress syndrome, FiO2 requirement up to 100%. Noted thrombophlebitis with thrombus within cephalic vein of left forearm. Continue cefepime, vancomycin. Sputum cultures were repeated 04/14. He has completed his course of remdesivir, and dexamethasone Initial antibiotic course of azithromycin, ceftriaxone. Tracheostomy performed late April 11 PEG tube was placed 04/13. Arrangements also underway for placement to long-term care. Status: Acute (4) COVID-19: Severe COVID-19 with ARDS. As above. Status: Acute (5) Ischemic cardiomyopathy: Status: Acute (6) Acute kidney injury: Status: Acute (7) Hyponatremia: Status: Acute (8) Atherosclerosis of coronary artery of [place] heart without angina pectoris: Continue cardiac medications. Status: Acute Qualifiers: Coronary Disease-Associated Artery/Lesion type: unspecified vessel or lesion type Qualified Code(s): I25.10 - Atherosclerotic heart disease of [place] coronary artery without angina pectoris (9) Dyslipidemia: Status: Acute (10) Benign essential HTN: Status: Acute (11) Neck mass: Indeterminate left neck mass measuring nearly 3 cm in size, does not appear to originate from the thyroid. CT scan neck demonstrated no mass Status: Acute (12) Fever: Recurrence. See notation above. Status: Acute (13) Septic shock: Status: Acute Additional A&P Information \ Attestations Medical Necessity Statement*: Patient requires hospitalization for acute respiratory failure secondary COVID-19 Coding Level of Care Code Acute Camera Mechanic for g Fwd Diagnoses PEA (Pulseless electrical activity) I46.9 Atrial fibrillation and flutter I48.91; I48.92 Hypoxemia R09.02 COVID-19 U07.1 Ischemic cardiomyopathy I25.5 Acute kidney injury N17.9 Hyponatremia E87.1 Atherosclerosis of coronary artery of [place] heart without angina pectoris I25.10 Coronary Disease-Associated Artery/Lesion type: unspecified vessel or lesion type Dyslipidemia E78.5 Benign essential HTN I10 Neck mass R22.1 Fever R50.9 Septic shock A41.9; R65.21
[2021-04-28] MEDS: levofloxacin-dextrose 5 % 750 MG/150 ML PREMIX 100 MG IV (15:45)
--- NOTE | 2021-04-28 15:53 | PC.NURSE ---
dr. donahue called re:o2. sat 87% and concerns of going to ct. will hold today ,as well as hold docusate and lactulose d/t liq. stools. o2 sat probe changed to finger probe instead of foreheah.
--- NOTE | 2021-04-28 16:42 | PC.NURSE ---
restraints removed d/t pt. weakness and not using his arms.
--- NOTE | 2021-04-28 18:48 | PC.NURSE ---
Shift Note Frequent safety and comfort rounds continue. Orders and/or nursing care completed as indicated. Patient monitored for response to intervention and treatment(s). Education provided includes, medication education to patient and family member at bedside. Family member verbalized understanding and patient would nod head in agreement to teaching. Reinforcement of teaching needed for patient. Patient did not obtain CT ordered today by due to patents oxygen level decreasing with movement. Free water flushes reduced to 100ml Q4hr. Feeding rate currently at 30. PICC line on patients right side is flushable and able to draw blood from both sides; improved from one side not flushing or pulling.
[2021-04-28] MEDS: atorvastatin 40 mg Tablet PO (20:11)
[2021-04-29] VITALS (68 sets, daily range): BP systolic 89–124; BP diastolic 47–91; PULSE 73–93; RESP 16–30; TEMP 36.4–37.4; O2SAT 86–98; BMI 28.7
[2021-04-29] MEDS: enoxaparin 80 mg/0.8 mL Syringe SUBCUT ×2 (01:18→09:01)
[2021-04-29] MEDS: dilTIAZem 60 mg Tablet PO ×4 (01:19→20:09)
[2021-04-29] MEDS: ipratropium-albuterol 3 mL Neb INHALATION ×6 (03:47→23:15)
[2021-04-29] MEDS: pantoprazole 40 mg SDV IVP ×2 (03:59→16:05)
[2021-04-29] MEDS: lactulose oral liq 20 gm/30 mL UDC PO ×2 (03:59→16:05)
[2021-04-29 05:01] LABS: Base Excess ABG 13.8 mmol/L (-2.0-2.0); Blood Gas Allen Test Pos; Blood Gas Operator Identificat JB; Blood Gas Sample Site Radial, right; Blood Gas Sample Type Arterial; HCO3 ABG 40.6 mmol/L (22-26); Oxygen Device VENT; PO2 ABG 59.3 mmHg (80.0-100.0)
[2021-04-29 05:04] LABS: ABG PCO2 65.2 mmHg (35-45)
--- NOTE | 2021-04-29 05:33 | PC.NURSE ---
Shift Note Frequent safety and comfort rounds continue. Orders and/or nursing care completed as indicated. Patient monitored for response to intervention and treatment(s). Education provided includes trach care. Patient needs reinforcement teaching. Tube feedings are infusing through PEG tube at 45 mls/hr with Q4 100 ml free water flush, per order. PEG tube had no gastric residual when checked. Vent settings are as follows; mode-CMV, Fio2-90% VT-400, rate-22. PEEP-8. Mullen catheter drained 650 mls of dark yellow urine overnight. Right wrist IV and right arm PICC line are both saline locked. Patient remains nonverbal but follows commands and opens eyes spontaneously. Will continue to monitor.
[2021-04-29] MEDS: HYDROcodone-acetaminophen 5-325 mg Tablet 1 TAB PO ×2 (06:45→17:18)
--- NOTE | 2021-04-29 06:50 | PM.PN ---
Subjective Subjective: Interval history: not responsive, hypotensive, edema, on trach Medications: Reviewed: Yes Medication Review Details: Current Medications Acetaminophen (Acetaminophen 325 Mg Tablet) 650 mg PO Q6H PRN PRN Reason: Mild/Mod Pain Or Temp >/= 101 Last Admin: 04/21/21 09:00 Dose: 650 mg Documented by: Hydrocodone Bitart/Acetaminophen (Hydrocodone-Acetaminophen 5-325 Mg Tablet) 1 tab PO Q12H [facility] Last Admin: 04/29/21 06:45 Dose: 1 tab Documented by: Albuterol Sulfate (Albuterol 2.5 Mg/0.5 Ml Neb) 2.5 mg INHALATION Q4H.RESPIRATORY PRN PRN Reason: SHORTNESS OF BREATH Albuterol/Ipratropium (Ipratropium-Albuterol 3 Ml Neb) 3 ml INHALATION Q4H.RESPIRATORY [facility] Last Admin: 04/29/21 03:47 Dose: 3 ml Documented by: Amiodarone HCl (Amiodarone 200 Mg Tablet) 400 mg PO DAILY [facility] Last Admin: 04/28/21 09:16 Dose: 400 mg Documented by: Artificial Tears (Artificial Tears Op Oint 3.5 Gm) 1 applic EYE-BOTH PRN PRN PRN Reason: DRY EYE(S) Aspirin (Aspirin 81 Mg Ec Tablet) 81 mg PO DAILY [facility] Last Admin: 04/28/21 09:15 Dose: 81 mg Documented by: Atorvastatin Calcium (Atorvastatin 40 Mg Tablet) 40 mg PO BEDTIME [facility] Last Admin: 04/28/21 20:11 Dose: 40 mg Documented by: Budesonide (Budesonide 0.5 Mg/2 Ml Neb) 0.5 mg INHALATION BID.RESPIRATORY [facility] Last Admin: 04/28/21 20:09 Dose: 0.5 mg Documented by: Diltiazem HCl (Diltiazem 60 Mg Tablet) 60 mg PO Q6H [facility] Last Admin: 04/29/21 01:19 Dose: 60 mg Documented by: Docusate Sodium (Docusate Sodium 100 Mg Capsule) 100 mg PO Q12H [facility] Last Admin: 04/29/21 04:00 Dose: Not Given Documented by: Enoxaparin Sodium (Enoxaparin 80 Mg/0.8 Ml Syringe) 80 mg SUBCUT Q12H [facility] Last Admin: 04/29/21 01:18 Dose: 80 mg Documented by: Ferrous Gluconate (Ferrous Gluconate 324 Mg Tablet) 324 mg PO BIDWM [facility] Last Admin: 04/28/21 17:58 Dose: 324 mg Documented by: Folic Acid (Folic Acid 1 Mg Tablet) 1 mg PO DAILY [facility] Last Admin: 04/28/21 09:15 Dose: 1 mg Documented by: Guaifenesin (Guaifenesin 600 Mg Tablet) 600 mg PO BID [facility] Last Admin: 04/28/21 17:58 Dose: 600 mg Documented by: Caspofungin 50 mg/ Sodium (Chloride) 250 mls @ 250 mls/hr IV Q24H [facility] Last Infusion: 04/28/21 15:14 Dose: Infused Documented by: Linezolid (Zyvox Premix) 600 mg in 300 mls @ 300 mls/hr IV Q12H [facility]; Protocol Last Infusion: 04/28/21 21:11 Dose: Infused Documented by: Imipenem/Cilastatin Sodium 500 (mg/ Sodium Chloride) 100 mls @ 200 mls/hr IV Q8H [facility] Last Infusion: 04/29/21 01:48 Dose: Infused Documented by: Levofloxacin/Dextrose (Levaquin-D5w) 750 mg in 150 mls @ 100 mls/hr IV Q48H [facility]; Protocol Last Infusion: 04/28/21 18:43 Dose: Infused Documented by: Lactulose (Lactulose Oral Liq 20 Gm/30 Ml Udc) 20 gm PO Q12H [facility] Last Admin: 04/29/21 03:59 Dose: 20 gm Documented by: Lanolin (Lanolin Oint 7 Gm) 1 applic TOPICAL PRN PRN PRN Reason: DRYNESS Last Admin: 04/16/21 08:03 Dose: 1 applic Documented by: Morphine Sulfate (Morphine 4 Mg/Ml Sdv 1 Ml) 2 mg IVP Q4H PRN PRN Reason: SEVERE PAIN Multivitamins Therapeutic (Multivitamin Therapeutic Tablet) 1 tab PO DAILY [facility] Last Admin: 04/28/21 09:16 Dose: 1 tab Documented by: Nitroglycerin (Nitroglycerin 0.4 Mg Sublingual Tablet) 0.4 mg SUBLINGUAL Q5M PRN PRN Reason: Chest Pain Nystatin (Nystatin Powder 15 Gm Btl) 1 applic TOPICAL QID PRN PRN Reason: RASH Last Admin: 04/17/21 09:34 Dose: 1 applic Documented by: Ondansetron HCl (Ondansetron 2 Mg/Ml Sdv 2 Ml) 4 mg IVP Q8H PRN PRN Reason: vomiting, or N/V if npo Pantoprazole Sodium (Pantoprazole 40 Mg Sdv) 40 mg IVP Q12H [facility] Last Admin: 04/29/21 03:59 Dose: 40 mg Documented by: Senna (Sennosides 8.6 Mg Tablet) 17.2 mg PO BID [facility] Last Admin: 04/28/21 17:58 Dose: Not Given Documented by: Sucralfate (Sucralfate 1 Gm Tablet) 1 gm PO AC&BEDTIME [facility] Last Admin: 04/28/21 20:10 Dose: 1 gm Documented by: Thiamine Mononitrate (Thiamine 100 Mg Tablet) 100 mg PO DAILY [facility] Last Admin: 04/28/21 09:16 Dose: 100 mg Documented by: Vitals/I&O/Wt Last Vital Signs Temp 99.4 F 04/29/21 04:00 Pulse 84 04/29/21 06:00 Resp 26 H 04/29/21 06:08 BP 110/53 04/29/21 06:00 Pulse Ox 92 04/29/21 06:08 04/28/21 04/28/21 04/29/21 14:59 22:59 06:59 Intake Total 400 / 400 1348 / 1748 535 / 2283 Output Total 1450 / 1450 350 / 1800 650 / 2450 Balance -1050 / -1050 998 / -52 -115 / -167 Weight last 48 hrs Weight 88.195 kg Weight 88.082 kg Physical Exam Narrative: EXAM NARRATIVE: on vent via trach- minimally responsive vs noted- vent tv 400/ fio2=90%, rr 22/ peep 8 heent- nc/at neck trach lungs- b/l diffuse crackles heart reg, + s1, s2 abd soft, nt, nd, + bs, +PEG ext + b/l edema neuro- sedated exam by RN as telehealth visit Urinary Catheter Management^: Mullen: Cath Placed During This Visit: yes, but has since been removed by the nurse Reason for Continuing Indwelling Catheter: Accurate Measurement of Urinary Output in Critically Ill Patients Urinary Catheter Date of Insertion: 04/17/21 Urinary Catheter Time of Insertion: 02:54 Date Urinary Catheter Removed: 04/17/21 Time Urinary Catheter Discontinued: 02:53 Data : 04/28/21 09:13 04/28/21 09:13 Micro: Microbiology 04/28/21 08:38 C.difficile Toxin B Gene (PCR) - Final Stool Routine Collection 04/28/21 09:45 Gram Stain - Final Sputum - Endotracheal Tube Aspirate 04/28/21 08:38 Bacterial Antigens - Final Urine Suprapubic 04/28/21 09:13 Blood Culture - Preliminary Blood SPECIMEN COLLECTED 04/28/21 09:16 Blood Culture - Preliminary Blood SPECIMEN COLLECTED A&P Additional A&P Information 1. Hyponatremia labs pending this morning multifactorial Prerenal and SIADN Hold thiazide diuretics. -will give lasix and monitor 2. Acute kidney injury- working dx is COVID- nephropathy Creatinine improving Strict I's and O's Daily renal panel, strict I's and O's No indication for renal replacement therapy at this time Dose medication for GFR less than 30 3. Covid pneumonitis Currently on trach with high ventilator settings. Status post remdesivir and Decadron, currently receiving combination antibiotic therapy as well. Dose Lasix today given increase in FiO2 and mild hypervolemia 4. Hemodynamics Atrial fibrillation with RVR since cardiac arrest Amiodarone and diltiazem on board Off pressor agents at this time - echo- EF 40%, Global left ventricular hypokinesis. Grade I/IV diastolic dysfunction (abnormal relaxation filling pattern), normal to mildly elevated filling pressures. -elevated bnp -lasix 5. anemia 6. hypercapneic resp acidosis and mild met alkslosis- balanced pH 7. monitor k and magnesium- replete as needed Patient seen and examined via telemedicine, with the assistance of the bedside RN 30 min spent in evaluation and mgmt of patient Attestations Medical Necessity Statement*: [facility] Time Spent in Patient Care: 16 - 35 minutes Coding Level of Care Code Acute Clerical Assigner for Kris Ellis
[2021-04-29] MEDS: linezolid premix 600 MG/300 ML PREMIX 300 MG IV ×2 (07:29→20:09)
[2021-04-29] MEDS: ferrous gluconate 324 mg Tablet PO ×2 (07:29→17:18)
[2021-04-29] MEDS: sucralfate 1 gm Tablet PO ×4 (07:29→20:09)
[2021-04-29] MEDS: FUROsemide 10 mg/mL SDV 4mL 40 MG IVP (07:29)
[2021-04-29] MEDS: budesonide 0.5 mg/2 mL Neb INHALATION ×2 (07:49→20:17)
[2021-04-29 08:34] LABS: Basophils # 0.1 10^3/uL (0.0-0.1); Basophils % 0.5 %; Eosinophils # 0.4 10^3/uL (0.0-0.8); Eosinophils % 3.5 %; Hematocrit 27.2 % (42.0-52.0); Hemoglobin 8.9 g/dL (11.7-16.6); Lymphocytes # 1.4 10^3/uL (0.8-4.8); Lymphocytes % 11.2 %; Mean Corpuscular HGB Conc 32.7 g/dL (30.0-36.0); Mean Corpuscular Hemoglobin 33.2 pg (28.0-34.0); Mean Corpuscular Volume 101.5 fl (80-94); Mean Platelet Volume 9.6 fL (7.4-10.4); Monocytes # 1.3 10^3/uL (0.2-0.9); Monocytes % 10.1 %; Neutrophils # 9.14 10^3/uL (1.8-7.7); Neutrophils % 72.8 %; Nucleated Red Blood Cells % 0 %; Platelet Count 515 10^3/cmm (130-400); Red Blood Count 2.68 10^6/uL (4.1-5.3); Red Cell Distribution Width 13.3 % (12.1-15.1); White Blood Count 12.6 10^3/uL (4.0-10.0)
[2021-04-29 08:43] LABS: INR 1.03 (0.8-1.2)
[2021-04-29 08:50] LABS: Lactate (Lactic Acid level) 1.5 mmol/L (0.5-2.2)
[2021-04-29] MEDS: guaiFENesin 600 mg Tablet PO ×2 (08:56→17:18)
[2021-04-29] MEDS: multivitamin therapeutic Tablet 1 TAB PO (08:56)
[2021-04-29] MEDS: thiamine 100 mg Tablet PO (08:56)
[2021-04-29] MEDS: aspirin 81 mg EC Tablet PO (08:57)
[2021-04-29] MEDS: amiodarone 200 mg Tablet 400 MG PO (08:57)
[2021-04-29] MEDS: folic acid 1 mg Tablet PO (08:57)
[2021-04-29] MEDS: sennosides 8.6 mg Tablet 17.2 MG PO (08:57)
[2021-04-29 09:49] LABS: Alanine Aminotransferase 9 U/L (0-41); Albumin Level 2.6 g/dL (3.5-5.2); Alkaline Phosphatase 135 IU/L (40-130); Anion Gap 11.1 (5-19); Aspartate Amino Transferase 38 U/L (0-40); Blood Urea Nitrogen 27 mg/dL (8-23); C Reactive Protein 94.9 mg/L (0.0-4.9); Calcium 8.1 mg/dL (8.5-10.5); Carbon Dioxide 36 mmol/L (22-29); Chloride 85 mmol/L (98-107); Creatine Phosphokinase 85 U/L (39-308); Globulin 2.8 g/dL (1.3-4.6); Glomerular Filtration Rate 44.2 mL/min (90-130); Glucose 95 mg/dL (65-115); Magnesium 1.7 mg/dL (1.7-2.3); Osmolality Calculated 273 mOsm/kg (285-295); Phosphorus 3.1 mg/dL (2.5-4.5); Potassium 3.1 mmol/L (3.5-5.1); Sodium 129 mmol/L (136-145); Total Bilirubin 0.6 mg/dL (0.15-1.2); Total Protein 5.4 g/dL (6.6-8.7)
[2021-04-29 10:19] LABS: NT Pro B Type Natriuretic Pept > 35000 pg/mL (0-125)
--- NOTE | 2021-04-29 10:47 | PC.NURSE ---
Patient has been resting this shift. He is unable to follow commands but he was able to shake his head yes when asked if he wanted to rest. Rectal tube was inserted per orders due to copious amounts of liquid stool.
[2021-04-29] MEDS: morphine 4 mg/mL SDV 1 mL 2 MG IVP (11:56)
--- NOTE | 2021-04-29 13:24 | CTR_ITS ---
PROCEDURE INFORMATION: Exam: CT Head Without Contrast Exam date and time: 04/29/2021 1:24 PM Age: 60 years old Clinical indication: Altered mental status/memory loss. TECHNIQUE: Imaging protocol: Computed tomography of the head without contrast. Radiation optimization: All CT scans at this facility use at least one of these dose optimization techniques: automated exposure control; mA and/or kV adjustment per patient size (includes targeted exams where dose is matched to clinical indication); or iterative reconstruction. COMPARISON: US soft tissue head neck [id number] 04/03/2021 6:21 PM RADIATION DOSE METRICS: Total DLP (mGy-cm): 1186.79 FINDINGS: Motion artifact compromises the examination. No acute intracranial hemorrhage. No evidence of intracranial hemorrhage. There is focal floor landis-white differentiation in the right parietooccipital region suspicious for acute infarct. There is mild patchy subcortical and periventricular high FLAIR signal, most commonly associated with small vessel ischemic disease of indeterminate age. The ventricles and cortical sulci are prominent, compatible with moderate parenchymal volume loss. The flow voids in the dominant [place] arteries are unremarkable. There are retention cysts or polyps in the maxillary sinuses. Bilateral mastoid effusions, right more extensive than left. The visualized orbits are unremarkable. CT/CT head wo con* [id number] IMPRESSION: 1. Motion artifact compromises the examination. 2. Findings suspicious for acute right parietooccipital infarct. Recommend MR brain to further assess. 3. Pxfc-oz-hidubfbs senescent changes as above. 4. No acute intracranial hemorrhage. Radiation Dose CTDIVOL = (mGy): DLP = 1186.79 (mGy-cm)
--- NOTE | 2021-04-29 13:24 | CTR_ITS ---
PROCEDURE INFORMATION: Exam: CT Chest Without Contrast; Diagnostic Exam date and time: 04/29/2021 1:24 PM Age: 60 years old Clinical indication: Fever. Rule out abscess. TECHNIQUE: Imaging protocol: Diagnostic computed tomography of the chest without contrast. Radiation optimization: All CT scans at this facility use at least one of these dose optimization techniques: automated exposure control; mA and/or kV adjustment per patient size (includes targeted exams where dose is matched to clinical indication); or iterative reconstruction. COMPARISON: US abdomen limited [id number] 04/20/2021 3:12 PM RADIATION DOSE METRICS: Total DLP (mGy-cm): 2402.55 FINDINGS: Tubes, catheters and devices: A tracheostomy tube is noted. Right PICC with tip in the SVC. Lungs: There is extensive ground-glass and airspace opacity throughout the chest that appears worsened from prior likely related to COVID 19 pneumonia. There is apparent developing honeycombing in the chest bilaterally raising concern for underlying or associated pulmonary fibrosis/interstitial lung disease. No pulmonary mass. Pleural spaces: No pleural effusion.; No pneumothorax.; Small right pleural effusion. Heart: The heart is enlarged. Coronary arterial calcifications are noted. Mediastinal space: No hiatal hernia. Aorta: No thoracic aortic aneurysm. Lymph nodes: A right pretracheal lymph node measures 1.7 x 2.6 cm. A left hilar lymph node measures 1.3 x 1.8 cm. A subcarinal lymph node measures 1.2 x 2.1 cm. Bones/joints: Acute to subacute fractures involving the anterior left 2nd, 3rd and 4th ribs as well as the right 2nd, 3rd, 4th, 5th and 6th ribs. Old left 5th and 6th rib fractures are noted. There is a minimally displaced fracture to the anteroinferior aspect of the T9 vertebral body. Soft tissues: IMPRESSION: 1. Minimally displaced fracture to the anteroinferior aspect of the T9 vertebral body. 2. There is extensive ground-glass and airspace opacity throughout the chest that appears worsened from prior likely related to COVID 19 pneumonia. There is apparent developing honeycombing in the chest bilaterally raising concern for underlying or associated pulmonary fibrosis/interstitial lung disease. 3. Acute to subacute fractures involving the anterior left 2nd, 3rd and 4th ribs as well as the right 2nd, 3rd, 4th, 5th and 6th ribs. Multiple rib fractures increased probability of flail chest. Correlate clinically. 4. Cardiomegaly with coronary artery disease. 5. Mediastinal and left hilar lymphadenopathy. 6. Small right pleural effusion. PROCEDURE INFORMATION: Exam: CT Abdomen And Pelvis Without Contrast Exam date and time: 04/29/2021 1:24 PM Age: 60 years old Clinical indication: Fever. Rule out abscess. TECHNIQUE: Imaging protocol: Computed tomography of the abdomen and pelvis without contrast. Radiation optimization: All CT scans at this facility use at least one of these dose optimization techniques: automated exposure control; mA and/or kV adjustment per patient size (includes targeted exams where dose is matched to clinical indication); or iterative reconstruction. COMPARISON: abdomen limited [id number] 04/20/2021 3:12 PM RADIATION DOSE METRICS: Total DLP (mGy-cm): 2402.55 FINDINGS: Tubes, catheters and devices: A percutaneous gastrostomy tube is noted. Liver: The liver is unremarkable. Gallbladder and bile ducts: The gallbladder is unremarkable. Pancreas: The pancreas is unremarkable. Spleen: The spleen is enlarged measuring 13.8 cm. Adrenal glands: The adrenal glands are unremarkable. Kidneys and ureters: The kidneys are unremarkable. Stomach and bowel: A rectal tube is in place. Appendix: The appendix is unremarkable. Intraperitoneal space: No free intraperitoneal air is seen. Mild free pelvic fluid. Vasculature: No abdominal aortic aneurysm. There is atherosclerotic calcification involving the infrarenal abdominal aorta. Lymph nodes: No retroperitoneal lymphadenopathy. Urinary bladder: The bladder is largely decompressed. A Mullen catheter is in place. Reproductive: The prostate measures 2.1 x 4.3 cm. Bones/joints: There are old bilateral pars interarticularis fractures at L5 without significant listhesis. No acute fracture is identified. Soft tissues: Small fat containing inguinal, umbilical and epigastric hernias. Foci of gas in the ventral subcutaneous tissues on the right with adjacent stranding; this may reflect an injection site. CT/CT chest abd pel wo con IMPRESSION: 1. Splenomegaly. 2. Mild free pelvic fluid. 3. Old bilateral pars interarticularis fractures at L5 without significant listhesis. Radiation Dose CTDIVOL = (mGy): DLP = 2402.55~2402.55 (mGy-cm)
[2021-04-29] MEDS: docusate sodium 100 mg Capsule PO (16:04)
[2021-04-29] MEDS: lidocaine 1% 5 ML in potassium chloride premix 100 ML 25 ML IV (17:21)
--- NOTE | 2021-04-29 17:41 | PC.NURSE ---
Patient has episode of O2 levels in the low 80's earlier in shift. Fio2 was increased to 90%. [place] frothy sputum has been noted.
--- NOTE | 2021-04-29 18:59 | PC.NURSE ---
Family aware of CT results
--- NOTE | 2021-04-29 19:02 | P.PN_ITS ---
Subjective Subjective: Interval history: Patient was seen this morning, he continues to follow commands, such as squeezing my fingers, tracking me around the room, yesterday respiratory therapy tried different modes of ventilation including CMV, however patient would become tachypneic, generate large tidal volumes, and his FiO2 requirements with increased, remains afebrile, good urine output, n ormotensive, Vitals/I&O/Wt Last Vital Signs Temp 97.5 F L 04/29/21 07:30 Pulse 79 04/29/21 18:30 Resp 26 H 04/29/21 17:08 BP 102/58 04/29/21 18:30 Pulse Ox 88 L 04/29/21 18:30 04/29/21 04/29/21 04/29/21 06:59 14:59 22:59 Intake Total 535 / 2283 400 / 400 1039 / 1439 Output Total 650 / 2450 750 / 750 1350 / 2100 Balance -115 / -167 -350 / -350 -311 / -661 Weight last 48 hrs Weight 88.195 kg Weight 88.082 kg Physical Exam Const: COMMON NORMALS: no acute distress GENERAL APPEARANCE: frail appearing ORIENTATION/CONSCIOUSNESS: Yes awake and Yes oriented to person; not oriented to place and not oriented to time OTHER: Is able to follow basic commands such as squeezing my fingers, wiggling his toes Eye: OTHER: Bilateral pupils pinpoint, reactive to light Neck/C-Spine: OTHER: Tracheostomy in place Resp: COMMON NORMALS: normal respiratory effort, No retractions and No use of accessory muscles AUSCULTATION: diminished lung sounds diffuse Cardio: COMMON NORMALS: regular rate, regular rhythm, S1 normal heart sound present and S2 normal heart sound present RATE: regular rate RHYTHM: regular rhythm HEART SOUNDS: S1 normal heart sound present and S2 normal heart sound present GI: COMMON NORMALS: Normal to inspection, nondistended, normoactive bowel sounds present, Soft to palpation and non-tender PALPATION: Yes Soft to palpation OTHER: PEG tube in place Extremity: COMMON NORMALS: no pedal edema OTHER: 1+ pitting edema, generalized anasarca Neuro: SENSORIUM/ORIENTATION: Yes oriented to person, No oriented to place and No oriented to time Urinary Catheter Management^: Mullen: Cath Placed During This Visit: yes, but has since been removed by the nurse Reason for Continuing Indwelling Catheter: Accurate Measurement of Urinary Output in Critically Ill Patients Urinary Catheter Date of Insertion: 04/17/21 Urinary Catheter Time of Insertion: 02:54 Date Urinary Catheter Removed: 04/17/21 Time Urinary Catheter Discontinued: 02:53 Data : 04/29/21 07:42 04/29/21 07:42 Micro: Microbiology 04/29/21 10:15 C.difficile Toxin B Gene (PCR) - Final Stool - Stool Aspirate 04/28/21 09:16 Blood Culture - Preliminary Blood NEGATIVE TO DATE 04/28/21 09:13 Blood Culture - Preliminary Blood NEGATIVE TO DATE 04/28/21 09:45 Gram Stain - Final Sputum - Endotracheal Tube Aspirate Sputum Culture - Preliminary 04/28/21 08:38 Urine Culture - Preliminary Urine Catheterized 04/28/21 08:38 Enteric Pathogens (PCR) - Final Stool Routine Collection 04/28/21 08:38 C.difficile Toxin B Gene (PCR) - Final Stool Routine Collection A&P Assessment and plan (1) PEA (Pulseless electrical activity): -Acute hypoxic respiratory failure with acute respiratory distress syndrome, secondary COVID-19 pneumonia status post trach and PEG -PEA -Possibly secondary to pulmonary embolism and or acute flash pulmonary edema -With underlying acute hypoxic respiratory failure secondary to COVID-19 pneumonia, acute respiratory distress syndrome, status post tracheostomy, status post percutaneous gastrostomy tube placement -Status post CPR -PEA -Return of circulation -EKG shows slight ST-T wave changes in inferior leads, discussed with cardiology, no evidence of acute NM, baseline troponin I 04, 120-minute, 98.33, 6hour 131.6, delta 27.6 -repeat echo Moderately decreased left ventricular systolic function. Left ventricular ejection fraction is estimated at 40 %. Global left ventricular hypokinesis. Grade I/IV diastolic dysfunction (abnormal relaxation filling pattern), normal to mildly elevated filling pressures. -Bilateral lower extremity ultrasound negative for DVT -CT angiogram cannot be performed due to creatinine -Currently on therapeutic Lovenox, will continue -With hyponatremia, serum sodium 128, likely secondary to diuretic, SIADH with sepsis, hypertonic saline has been discontinued, conivaptan 2 doses, nephrology on consult, continue to monitor serum sodiums -Continues to have generalized anasarca chest x-ray continues to show pulmonary vascular congestion, + 8 L, hyponatremia is improving, will try Lasix -Creatinine 1.6, continue to monitor, will consider restarting midodrine if blood pressures are borderline -Family declines CRRT for now -Septic shock on broad-spectrum antibiotic therapy, off pressor therapy, MAP around 65 -continue Levaquin, vancomycin, Primaxin, caspofungin for now, as patient had low-grade fevers as of yesterday -Now alert, following basic commands, -Can consider EEG depending on clinical progress -Follow blood cultures, sputum cultures show yeast, repeat cultures -Hemoglobin stable, status post 1 unit PRBC, monitor hemoglobin -Start tube feeds, slow upward titration, goal 50 cc an hour with free water flushes 100 cc every 4 hours -Start bowel regimen lactulose, Colace -Hold fluid due to concerns for fluid overload -For A. fib with RVR, currently normal sinus rhythm, paroxysmal A. fib currently on p.o. Cardizem 60 every 6 hours, amiodarone 400 once daily, Lovenox as above -Ventilator, 80% % FiO2, wean PEEP and FiO2 as tolerated, continue ventilatory support, minimize PEEP, minimize FiO2, does not tolerate CMV well, need to titrate FiO2 to below 80%, PEEP under 10 -low-dose hydrocodone scheduled, sedation should only be used if concerns for tachypnea, respiratory failure -Trach replaced, by Dr. Bishop, 04/27/2020 no leak -Patient's family has made him DNR -Tracheostomy in place -PEG tube in place -Mullen catheter in place -Right PICC line in place -Protonix 40 IV twice daily, Carafate -Therapeutic Lovenox -Status is stable, prognosis is guarded -Family wants to continue medical interventions, will work on placement to select Plan for today, slowly upward titrate tube feeds, bowel regimen, continue antibiotics, monitor respiratory status, wean oxygen, will do CT imaging Status: Acute (2) Atrial fibrillation and flutter: Status: Acute (3) Hypoxemia: Hypoxia persists. Secondary to COVID-19 pneumonia, acute respiratory distress syndrome, FiO2 requirement up to 100%. Noted thrombophlebitis with thrombus within cephalic vein of left forearm. Continue cefepime, vancomycin. Sputum cultures were repeated 04/14. He has completed his course of remdesivir, and dexamethasone Initial antibiotic course of azithromycin, ceftriaxone. Tracheostomy performed late April 11 PEG tube was placed 04/13. Arrangements also underway for placement to long-term care. Status: Acute (4) COVID-19: Severe COVID-19 with ARDS. As above. Status: Acute (5) Ischemic cardiomyopathy: Status: Acute (6) Acute kidney injury: Status: Acute (7) Hyponatremia: Status: Acute (8) Atherosclerosis of coronary artery of [place] heart without angina pectoris: Continue cardiac medications. Status: Acute Qualifiers: Coronary Disease-Associated Artery/Lesion type: unspecified vessel or lesion type Qualified Code(s): I25.10 - Atherosclerotic heart disease of [place] coronary artery without angina pectoris (9) Dyslipidemia: Status: Acute (10) Benign essential HTN: Status: Acute (11) Neck mass: Indeterminate left neck mass measuring nearly 3 cm in size, does not appear to originate from the thyroid. CT scan neck demonstrated no mass Status: Acute (12) Fever: Recurrence. See notation above. Status: Acute (13) Septic shock: Status: Acute (14) Acute CVA (cerebrovascular accident): -CT of the head shows suspicious for acute right parietal occipital infarct -Possible embolic stroke associate with A. fib? -Timeframe unknown, as patient was on sedation, on mechanical ventilation -Is difficult to discern any focal neurologic deficits, as he has generalized weakness, difficult to follow commands at times, mentation fluctuates -Will need daily neuro exams, PT OT -Patient has been on aspirin, statin continue -Patient has been on therapeutic Lovenox continue -I would hold off on Plavix, given his hemoglobin 8.9, risk of bleeding -Cannot perform MRI given clinical status Status: Acute (15) T9 vertebral fracture: -Likely secondary to chest compressions or minimal trauma fracture from repositioning -Pain control with scheduled hydrocodone -Continue to monitor Status: Acute (16) Rib fractures: -Acute to subacute fractures involving the anterior left 2nd, 3rd and 4th ribs as well as the right 2nd, 3rd, 4th, 5th and 6th ribs. -Secondary to CPR for PEA -No clinical evidence of flail chest -Certainly this could be playing a role in terms of his tachypnea, increased oxygen requirements -Pain control with scheduled Victor Status: Acute Additional A&P Information \ Attestations Medical Necessity Statement*: Patient requires hospitalization, for acute hypoxic respiratory failure, arts, second to COVID-19, with CVA, rib fractures, Coding Level of Care Code Acute Solar Installation Technician for g Fwd Diagnoses PEA (Pulseless electrical activity) I46.9 Atrial fibrillation and flutter I48.91; I48.92 Hypoxemia R09.02 COVID-19 U07.1 Ischemic cardiomyopathy I25.5 Acute kidney injury N17.9 Hyponatremia E87.1 Atherosclerosis of coronary artery of [place] heart without angina pectoris I25.10 Coronary Disease-Associated Artery/Lesion type: unspecified vessel or lesion type Dyslipidemia E78.5 Benign essential HTN I10 Neck mass R22.1 Fever R50.9 Septic shock A41.9; R65.21 Acute CVA (cerebrovascular accident) I63.9 T9 vertebral fracture S22.079A Rib fractures S22.49XA
[2021-04-29] MEDS: atorvastatin 40 mg Tablet PO (20:09)
[2021-04-30] VITALS (63 sets, daily range): BP systolic 85–149; BP diastolic 38–77; PULSE 73–98; RESP 24–36; TEMP 37.6–37.9; O2SAT 83–96; BMI 28.7
[2021-04-30] MEDS: enoxaparin 80 mg/0.8 mL Syringe SUBCUT ×3 (00:07→22:00)
[2021-04-30] MEDS: morphine 4 mg/mL SDV 1 mL 2 MG IVP (03:10)
[2021-04-30] MEDS: pantoprazole 40 mg SDV IVP ×2 (03:14→17:10)
[2021-04-30] MEDS: dilTIAZem 60 mg Tablet PO ×3 (03:25→14:20)
[2021-04-30 05:02] LABS: Basophils # 0.1 10^3/uL (0.0-0.1); Basophils % 0.7 %; Eosinophils # 0.9 10^3/uL (0.0-0.8); Eosinophils % 6.1 %; Hematocrit 27.3 % (42.0-52.0); Hemoglobin 8.8 g/dL (11.7-16.6); Lymphocytes # 1.7 10^3/uL (0.8-4.8); Lymphocytes % 11.4 %; Mean Corpuscular HGB Conc 32.2 g/dL (30.0-36.0); Mean Corpuscular Hemoglobin 33.3 pg (28.0-34.0); Mean Corpuscular Volume 103.4 fl (80-94); Mean Platelet Volume 9.5 fL (7.4-10.4); Monocytes # 1.5 10^3/uL (0.2-0.9); Neutrophils # 10.55 10^3/uL (1.8-7.7); Neutrophils % 69.6 %; Nucleated Red Blood Cells % 0 %; Platelet Count 526 10^3/cmm (130-400); Red Blood Count 2.64 10^6/uL (4.1-5.3); Red Cell Distribution Width 13.4 % (12.1-15.1); White Blood Count 15.2 10^3/uL (4.0-10.0)
[2021-04-30 05:27] LABS: Alanine Aminotransferase 7 U/L (0-41); Albumin Level 2.5 g/dL (3.5-5.2); Alkaline Phosphatase 112 IU/L (40-130); Anion Gap 11.3 (5-19); Aspartate Amino Transferase 32 U/L (0-40); Blood Urea Nitrogen 34 mg/dL (8-23); Calcium 8.2 mg/dL (8.5-10.5); Carbon Dioxide 36 mmol/L (22-29); Chloride 88 mmol/L (98-107); Globulin 3.4 g/dL (1.3-4.6); Glomerular Filtration Rate 47.6 mL/min (90-130); Glucose 104 mg/dL (65-115); Magnesium 1.7 mg/dL (1.7-2.3); Osmolality Calculated 282 mOsm/kg (285-295); Phosphorus 3.2 mg/dL (2.5-4.5); Potassium 3.3 mmol/L (3.5-5.1); Sodium 132 mmol/L (136-145); Total Bilirubin 0.5 mg/dL (0.15-1.2); Total Protein 5.9 g/dL (6.6-8.7)
[2021-04-30 05:31] LABS: C Reactive Protein 85.9 mg/L (0.0-4.9)
[2021-04-30 05:51] LABS: NT Pro B Type Natriuretic Pept 30599 pg/mL (0-125)
[2021-04-30] MEDS: HYDROcodone-acetaminophen 5-325 mg Tablet 1 TAB PO ×2 (06:21→17:10)
--- NOTE | 2021-04-30 06:36 | PM.PN ---
Subjective Subjective: Interval history: not verbal. shake head yes and no. not verbal Medications: Reviewed: Yes Medication Review Details: Current Medications Acetaminophen (Acetaminophen 325 Mg Tablet) 650 mg PO Q6H PRN PRN Reason: Mild/Mod Pain Or Temp >/= 101 Last Admin: 04/21/21 09:00 Dose: 650 mg Documented by: Hydrocodone Bitart/Acetaminophen (Hydrocodone-Acetaminophen 5-325 Mg Tablet) 1 tab PO Q12H [facility] Last Admin: 04/30/21 06:21 Dose: 1 tab Documented by: Albuterol Sulfate (Albuterol 2.5 Mg/0.5 Ml Neb) 2.5 mg INHALATION Q4H.RESPIRATORY PRN PRN Reason: SHORTNESS OF BREATH Albuterol/Ipratropium (Ipratropium-Albuterol 3 Ml Neb) 3 ml INHALATION Q4H.RESPIRATORY [facility] Last Admin: 04/29/21 23:15 Dose: 3 ml Documented by: Amiodarone HCl (Amiodarone 200 Mg Tablet) 400 mg PO DAILY [facility] Last Admin: 04/29/21 08:57 Dose: 400 mg Documented by: Artificial Tears (Artificial Tears Op Oint 3.5 Gm) 1 applic EYE-BOTH PRN PRN PRN Reason: DRY EYE(S) Aspirin (Aspirin 81 Mg Ec Tablet) 81 mg PO DAILY [facility] Last Admin: 04/29/21 08:57 Dose: 81 mg Documented by: Atorvastatin Calcium (Atorvastatin 40 Mg Tablet) 40 mg PO BEDTIME [facility] Last Admin: 04/29/21 20:09 Dose: 40 mg Documented by: Budesonide (Budesonide 0.5 Mg/2 Ml Neb) 0.5 mg INHALATION BID.RESPIRATORY [facility] Last Admin: 04/29/21 20:17 Dose: 0.5 mg Documented by: Diltiazem HCl (Diltiazem 60 Mg Tablet) 60 mg PO Q6H [facility] Last Admin: 04/30/21 03:25 Dose: 60 mg Documented by: Docusate Sodium (Docusate Sodium 100 Mg Capsule) 100 mg PO Q12H [facility] Last Admin: 04/30/21 03:13 Dose: Not Given Documented by: Enoxaparin Sodium (Enoxaparin 80 Mg/0.8 Ml Syringe) 80 mg SUBCUT Q12H [facility] Last Admin: 04/30/21 00:07 Dose: 80 mg Documented by: Ferrous Gluconate (Ferrous Gluconate 324 Mg Tablet) 324 mg PO BIDWM [facility] Last Admin: 04/29/21 17:18 Dose: 324 mg Documented by: Folic Acid (Folic Acid 1 Mg Tablet) 1 mg PO DAILY [facility] Last Admin: 04/29/21 08:57 Dose: 1 mg Documented by: Furosemide (Furosemide 10 Mg/Ml Sdv 4ml) 40 mg IVP Q24H [facility] Last Admin: 04/29/21 07:29 Dose: 40 mg Documented by: Guaifenesin (Guaifenesin 600 Mg Tablet) 600 mg PO BID [facility] Last Admin: 04/29/21 17:18 Dose: 600 mg Documented by: Caspofungin 50 mg/ Sodium (Chloride) 250 mls @ 250 mls/hr IV Q24H [facility] Last Infusion: 04/29/21 17:22 Dose: Infused Documented by: Linezolid (Zyvox Premix) 600 mg in 300 mls @ 300 mls/hr IV Q12H [facility]; Protocol Last Infusion: 04/29/21 21:09 Dose: Infused Documented by: Imipenem/Cilastatin Sodium 500 (mg/ Sodium Chloride) 100 mls @ 200 mls/hr IV Q8H [facility] Last Infusion: 04/30/21 00:37 Dose: Infused Documented by: Levofloxacin/Dextrose (Levaquin-D5w) 750 mg in 150 mls @ 100 mls/hr IV Q48H [facility]; Protocol Last Infusion: 04/28/21 18:43 Dose: Infused Documented by: Norepinephrine Bitartrate 4 mg (/ Dextrose) 254 mls @ 0 mls/hr IV .Q0M [facility]; Protocol Last Admin: 04/29/21 20:10 Dose: 2 mcg/min, 7.62 mls/hr Documented by: Lactulose (Lactulose Oral Liq 20 Gm/30 Ml Udc) 20 gm PO Q12H [facility] Last Admin: 04/30/21 03:13 Dose: Not Given Documented by: Lanolin (Lanolin Oint 7 Gm) 1 applic TOPICAL PRN PRN PRN Reason: DRYNESS Last Admin: 04/16/21 08:03 Dose: 1 applic Documented by: Morphine Sulfate (Morphine 4 Mg/Ml Sdv 1 Ml) 2 mg IVP Q4H PRN PRN Reason: SEVERE PAIN Last Admin: 04/30/21 03:10 Dose: 2 mg Documented by: Multivitamins Therapeutic (Multivitamin Therapeutic Tablet) 1 tab PO DAILY [facility] Last Admin: 04/29/21 08:56 Dose: 1 tab Documented by: Nitroglycerin (Nitroglycerin 0.4 Mg Sublingual Tablet) 0.4 mg SUBLINGUAL Q5M PRN PRN Reason: Chest Pain Nystatin (Nystatin Powder 15 Gm Btl) 1 applic TOPICAL QID PRN PRN Reason: RASH Last Admin: 04/17/21 09:34 Dose: 1 applic Documented by: Ondansetron HCl (Ondansetron 2 Mg/Ml Sdv 2 Ml) 4 mg IVP Q8H PRN PRN Reason: vomiting, or N/V if npo Pantoprazole Sodium (Pantoprazole 40 Mg Sdv) 40 mg IVP Q12H [facility] Last Admin: 04/30/21 03:14 Dose: 40 mg Documented by: Senna (Sennosides 8.6 Mg Tablet) 17.2 mg PO BID [facility] Last Admin: 04/29/21 17:18 Dose: Not Given Documented by: Sucralfate (Sucralfate 1 Gm Tablet) 1 gm PO AC&BEDTIME [facility] Last Admin: 04/29/21 20:09 Dose: 1 gm Documented by: Thiamine Mononitrate (Thiamine 100 Mg Tablet) 100 mg PO DAILY [facility] Last Admin: 04/29/21 08:56 Dose: 100 mg Documented by: Vitals/I&O/Wt Last Vital Signs Temp 99.8 F H 04/30/21 00:00 Pulse 80 04/30/21 06:00 Resp 25 H 04/30/21 06:20 BP 120/70 04/30/21 02:00 Pulse Ox 91 04/30/21 06:20 04/29/21 04/29/21 04/30/21 14:59 22:59 06:59 Intake Total 400 / 400 1444 / 1844 100 / 1944 Output Total 750 / 750 1350 / 2100 Balance -350 / -350 94 / -256 100 / -156 Weight last 48 hrs Weight 88.195 kg Physical Exam Narrative: EXAM NARRATIVE: on vent via trach- minimally responsive vs noted- vent tv 400/ fio2=90%, rr 22/ peep 10 heent- nc/at neck trach lungs- b/l diffuse crackles heart irreg, + s1, s2 abd soft, nt, nd, + bs, +PEG ext + b/l edema neuro- sedated, responds to pain and touch, sometimes to verbal command exam by RN as telehealth visit Urinary Catheter Management^: Mullen: Cath Placed During This Visit: yes, but has since been removed by the nurse Reason for Continuing Indwelling Catheter: Accurate Measurement of Urinary Output in Critically Ill Patients Urinary Catheter Date of Insertion: 04/17/21 Urinary Catheter Time of Insertion: 02:54 Date Urinary Catheter Removed: 04/17/21 Time Urinary Catheter Discontinued: 02:53 Data : 04/30/21 04:04 04/30/21 04:04 Micro: Microbiology 04/29/21 10:15 C.difficile Toxin B Gene (PCR) - Final Stool - Stool Aspirate 04/28/21 09:16 Blood Culture - Preliminary Blood NEGATIVE TO DATE 04/28/21 09:13 Blood Culture - Preliminary Blood NEGATIVE TO DATE 04/28/21 09:45 Gram Stain - Final Sputum - Endotracheal Tube Aspirate Sputum Culture - Preliminary 04/28/21 08:38 Urine Culture - Preliminary Urine Catheterized 04/28/21 08:38 Enteric Pathogens (PCR) - Final Stool Routine Collection A&P Additional A&P Information 1. Hyponatremia -sodium improving- cont lasix and monitor multifactorial Prerenal and SIADH Hold thiazide diuretics. 2. 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 Covid pneumonitis Currently on trach with high ventilator settings. Status post remdesivir and Decadron, currently receiving combination antibiotic therapy as well. Dose Lasix today given increase in FiO2 and mild hypervolemia 4. Hemodynamics Atrial fibrillation with RVR since cardiac arrest Amiodarone and diltiazem on board Off pressor agents at this time - echo- EF 40%, Global left ventricular hypokinesis. Grade I/IV diastolic dysfunction (abnormal relaxation filling pattern), normal to mildly elevated filling pressures. -elevated bnp -lasix 5. anemia - hgb stable 6. hypercapneic resp acidosis and mild met alkslosis- balanced pH 7. monitor k and magnesium- replete as needed Patient seen and examined via telemedicine, with the assistance of the bedside RN 30 min spent in evaluation and mgmt of patient Attestations Medical Necessity Statement*: vdrf, covid-pna, electrolyte abnormalities Time Spent in Patient Care: 16 - 35 minutes Coding Level of Care Code Acute Payroll Specialist for Kris Ellis
--- NOTE | 2021-04-30 07:00 | XRR_ITS ---
PROCEDURE INFORMATION: Exam: XR Chest Exam date and time: 04/30/2021 7:00 AM Age: 60 years old Clinical indication: Dyspnea; Additional info: SOB TECHNIQUE: Imaging protocol: XR of the chest. Views: 1 view. COMPARISON: CT chest abd pel wo con 04/29/2021 2:35 PM FINDINGS: Tubes, catheters and devices: Right sided PICC is in satisfactory position, with distal tip in the SVC, approximately 5 cm above the SVC/RA junction. A tracheostomy tube projects over the tracheal air column. Lungs: Low lung volumes. Persistent extensive bilateral airspace opacities. No clear evidence of large pleural effusion or pneumothorax. Pleural spaces: See Lungs finding. Heart/Mediastinum: Stable cardiomediastinal silhouette. Bones/joints: No acute osseous injury identified. XR/XR chest 1V portable [id number] IMPRESSION: Persistent extensive bilateral airspace opacities.
--- NOTE | 2021-04-30 07:04 | PC.NURSE ---
Shift Note Frequent safety and comfort rounds continue. Orders and/or nursing care completed as indicated. Patient monitored for response to intervention and treatment(s). Education provided includes tube feedings. Patient needs reinforcement teaching. Vent settings are as follows; mode-CMV, FiO2-90%, rate-22, peep-10, VT-400. Mullen catheter drained 800 mls of dark yellow urine all evening. Rectal tube drained 450 mls of liquid brown stool all night. Tube feeding infusing through peg tube at 45 mls/hr with 100 ml flushes Q4. Levophed infusing per protocol in the right PICC line. Will continue to monitor.
[2021-04-30] MEDS: potassium chloride oral liq 20 mEq/15 mL UDC 40 MEQ PO (07:54)
[2021-04-30] MEDS: FUROsemide 10 mg/mL SDV 4mL 40 MG IVP (07:54)
[2021-04-30] MEDS: amiodarone 200 mg Tablet 400 MG PO (07:55)
[2021-04-30] MEDS: folic acid 1 mg Tablet PO (07:55)
[2021-04-30] MEDS: thiamine 100 mg Tablet PO (07:55)
[2021-04-30] MEDS: sucralfate 1 gm Tablet PO ×4 (07:55→22:01)
[2021-04-30] MEDS: multivitamin therapeutic Tablet 1 TAB PO (07:55)
[2021-04-30] MEDS: guaiFENesin 600 mg Tablet PO ×2 (07:55→17:10)
[2021-04-30] MEDS: ferrous gluconate 324 mg Tablet PO ×2 (07:56→17:10)
[2021-04-30] MEDS: aspirin 81 mg EC Tablet PO (07:56)
[2021-04-30] MEDS: linezolid premix 600 MG/300 ML PREMIX 300 MG IV ×2 (07:57→22:00)
--- NOTE | 2021-04-30 08:43 | PC.CHAP ---
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 vacuum metalizing supervisor visit [] Patient/Family/Request visit [] Outpatient visit [] Follow-up visit [] Physician referral [] Code/Alert [x] Routine visit [] Staff referral [] Actively dying [] Patient sleeping [] Family support [] [] Out of room [] Palliative care [] [] Receiving care in room [] Pre-surgical visit [] Trauma [] Long length of stay [x] ICU visit [] Other: Relational/Emotional Strength [] Patient feels connected with others/family/visitors/staff [] Distress [] Loneliness/isolation [] Abandonment Spirituality of Patient [] Person of Dacia [] Attends Oriental Orthodox of their Dacia [] Believes in Prayer [] Reads Bible or Faith materials [] There are Spiritual issues to be addressed Design Quality Engineer Interventions [x] Prayer [x] Active listening [x] Non-anxious presence [x] Spiritual/emotional support [] Crisis/trauma care [] Spiritual counseling [] Bereavement support [] Provided bereavement packet [] Provided Bible/devotional materials [] Provided toy/stuffed animal, coloring book to patient or family member [] Provided Communion [] Anointing/Wood [] Salvation [x] Completed spiritual assessment [] Other: Impact on Illness or Injury [] Angry [] Fearful [] Anxious [] Often cries [] Exhaustion [] Unable to work [] Unable to attend rastafarian [] Unable to walk/stand [] Unable to read [] Unable to drive [] Unable to eat/drink [] Unable to sleep [] Unable to be with family [] Patient intubated [] Other: Summary patient can not lip yes or no.... and amen!! patient is so very tired.. we pray for God's will together.. Time spent with patient 10 min
[2021-04-30] MEDS: budesonide 0.5 mg/2 mL Neb INHALATION ×2 (09:11→20:06)
[2021-04-30] MEDS: ipratropium-albuterol 3 mL Neb INHALATION ×5 (09:12→23:30)
--- NOTE | 2021-04-30 12:33 | PC.NUTR ---
Addendum entered by Angel Holley 04/30/21 12:36: Additional: Pt may benefit from further reduction in H2O flushes given elevated BNP, however diarrhea also noted. Original Note: Tube feeding recommendation: Noted TF increased to 45 ml/hr since last review, but never reached goal rate of 50 ml/hr. Requested nurse to please increase to goal when possible. Jevity 1.2 TF at goal rate of 50 ml/hr, with 100 ml H2O flushes q 4 hrs to provide 1440 kcal, 66 g protein, and 1568 ml H2O. If well tolerated, eventual goal to meet nutritional needs would be 70 ml/hr, however d/t severe diarrhea and not yet reaching goal, suggest monitor tolerance at 50 ml/hr first. Recommend check PEG placement. See full RD assessment for further details.
[2021-04-30] MEDS: levofloxacin-dextrose 5 % 750 MG/150 ML PREMIX 100 MG IV (14:20)
--- NOTE | 2021-04-30 15:16 | PM.PN ---
Subjective Subjective: Interval history: Patient was seen and examined this morning open eyes with verbal command Medications: Reviewed: Yes Medication Review Details: Current Medications Acetaminophen (Acetaminophen 325 Mg Tablet) 650 mg PO Q6H PRN PRN Reason: Mild/Mod Pain Or Temp >/= 101 Last Admin: 04/21/21 09:00 Dose: 650 mg Documented by: Hydrocodone Bitart/Acetaminophen (Hydrocodone-Acetaminophen 5-325 Mg Tablet) 1 tab PO Q12H [facility] Last Admin: 04/30/21 06:21 Dose: 1 tab Documented by: Albuterol Sulfate (Albuterol 2.5 Mg/0.5 Ml Neb) 2.5 mg INHALATION Q4H.RESPIRATORY PRN PRN Reason: SHORTNESS OF BREATH Albuterol/Ipratropium (Ipratropium-Albuterol 3 Ml Neb) 3 ml INHALATION Q4H.RESPIRATORY [facility] Last Admin: 04/29/21 23:15 Dose: 3 ml Documented by: Amiodarone HCl (Amiodarone 200 Mg Tablet) 400 mg PO DAILY [facility] Last Admin: 04/29/21 08:57 Dose: 400 mg Documented by: Artificial Tears (Artificial Tears Op Oint 3.5 Gm) 1 applic EYE-BOTH PRN PRN PRN Reason: DRY EYE(S) Aspirin (Aspirin 81 Mg Ec Tablet) 81 mg PO DAILY [facility] Last Admin: 04/29/21 08:57 Dose: 81 mg Documented by: Atorvastatin Calcium (Atorvastatin 40 Mg Tablet) 40 mg PO BEDTIME [facility] Last Admin: 04/29/21 20:09 Dose: 40 mg Documented by: Budesonide (Budesonide 0.5 Mg/2 Ml Neb) 0.5 mg INHALATION BID.RESPIRATORY [facility] Last Admin: 04/29/21 20:17 Dose: 0.5 mg Documented by: Diltiazem HCl (Diltiazem 60 Mg Tablet) 60 mg PO Q6H [facility] Last Admin: 04/30/21 03:25 Dose: 60 mg Documented by: Docusate Sodium (Docusate Sodium 100 Mg Capsule) 100 mg PO Q12H [facility] Last Admin: 04/30/21 03:13 Dose: Not Given Documented by: Enoxaparin Sodium (Enoxaparin 80 Mg/0.8 Ml Syringe) 80 mg SUBCUT Q12H [facility] Last Admin: 04/30/21 00:07 Dose: 80 mg Documented by: Ferrous Gluconate (Ferrous Gluconate 324 Mg Tablet) 324 mg PO BIDWM [facility] Last Admin: 04/29/21 17:18 Dose: 324 mg Documented by: Folic Acid (Folic Acid 1 Mg Tablet) 1 mg PO DAILY [facility] Last Admin: 04/29/21 08:57 Dose: 1 mg Documented by: Furosemide (Furosemide 10 Mg/Ml Sdv 4ml) 40 mg IVP Q24H [facility] Last Admin: 04/29/21 07:29 Dose: 40 mg Documented by: Guaifenesin (Guaifenesin 600 Mg Tablet) 600 mg PO BID [facility] Last Admin: 04/29/21 17:18 Dose: 600 mg Documented by: Caspofungin 50 mg/ Sodium (Chloride) 250 mls @ 250 mls/hr IV Q24H [facility] Last Infusion: 04/29/21 17:22 Dose: Infused Documented by: Linezolid (Zyvox Premix) 600 mg in 300 mls @ 300 mls/hr IV Q12H [facility]; Protocol Last Infusion: 04/29/21 21:09 Dose: Infused Documented by: Imipenem/Cilastatin Sodium 500 (mg/ Sodium Chloride) 100 mls @ 200 mls/hr IV Q8H [facility] Last Infusion: 04/30/21 00:37 Dose: Infused Documented by: Levofloxacin/Dextrose (Levaquin-D5w) 750 mg in 150 mls @ 100 mls/hr IV Q48H [facility]; Protocol Last Infusion: 04/28/21 18:43 Dose: Infused Documented by: Norepinephrine Bitartrate 4 mg (/ Dextrose) 254 mls @ 0 mls/hr IV .Q0M [facility]; Protocol Last Admin: 04/29/21 20:10 Dose: 2 mcg/min, 7.62 mls/hr Documented by: Lactulose (Lactulose Oral Liq 20 Gm/30 Ml Udc) 20 gm PO Q12H [facility] Last Admin: 04/30/21 03:13 Dose: Not Given Documented by: Lanolin (Lanolin Oint 7 Gm) 1 applic TOPICAL PRN PRN PRN Reason: DRYNESS Last Admin: 04/16/21 08:03 Dose: 1 applic Documented by: Morphine Sulfate (Morphine 4 Mg/Ml Sdv 1 Ml) 2 mg IVP Q4H PRN PRN Reason: SEVERE PAIN Last Admin: 04/30/21 03:10 Dose: 2 mg Documented by: Multivitamins Therapeutic (Multivitamin Therapeutic Tablet) 1 tab PO DAILY [facility] Last Admin: 04/29/21 08:56 Dose: 1 tab Documented by: Nitroglycerin (Nitroglycerin 0.4 Mg Sublingual Tablet) 0.4 mg SUBLINGUAL Q5M PRN PRN Reason: Chest Pain Nystatin (Nystatin Powder 15 Gm Btl) 1 applic TOPICAL QID PRN PRN Reason: RASH Last Admin: 04/17/21 09:34 Dose: 1 applic Documented by: Ondansetron HCl (Ondansetron 2 Mg/Ml Sdv 2 Ml) 4 mg IVP Q8H PRN PRN Reason: vomiting, or N/V if npo Pantoprazole Sodium (Pantoprazole 40 Mg Sdv) 40 mg IVP Q12H [facility] Last Admin: 04/30/21 03:14 Dose: 40 mg Documented by: Senna (Sennosides 8.6 Mg Tablet) 17.2 mg PO BID [facility] Last Admin: 04/29/21 17:18 Dose: Not Given Documented by: Sucralfate (Sucralfate 1 Gm Tablet) 1 gm PO AC&BEDTIME [facility] Last Admin: 04/29/21 20:09 Dose: 1 gm Documented by: Thiamine Mononitrate (Thiamine 100 Mg Tablet) 100 mg PO DAILY [facility] Last Admin: 04/29/21 08:56 Dose: 100 mg Documented by: Vitals/I&O/Wt Last Vital Signs Temp 99.7 F H 04/30/21 12:00 Pulse 87 04/30/21 14:00 Resp 29 H 04/30/21 13:30 BP 114/64 04/30/21 14:00 Pulse Ox 91 04/30/21 14:00 04/30/21 04/30/21 04/30/21 06:59 14:59 22:59 Intake Total 890 / 2734 542.17 / 542.17 Output Total 1250 / 3350 850 / 850 Balance -360 / -616 -307.83 / -307.83 Weight last 48 hrs Weight 88.195 kg Weight 88.195 kg Physical Exam Narrative: EXAM NARRATIVE: Patient opens eyes with verbal command. HENMT: COMMON NORMALS: normocephalic and atraumatic HEAD & SCALP: normocephalic and atraumatic Resp: OTHER: Diminished air entry bilaterally Cardio: COMMON NORMALS: regular rate, regular rhythm, S1 normal heart sound present, S2 normal heart sound present, No gallops present (Cardio), No murmurs present (Cardio), No rub (Cardio) and Peripheral pulses 2+ throughout RATE: regular rate RHYTHM: regular rhythm HEART SOUNDS: S1 normal heart sound present and S2 normal heart sound present PERIPHERAL PULSES: Peripheral pulses 2+ throughout GI: COMMON NORMALS: Normal to inspection, nondistended, normoactive bowel sounds present, Soft to palpation, non-tender, No hepatosplenomegaly present and no masses AUSCULTATION: Yes normoactive bowel sounds PALPATION: Yes Soft to palpation and Yes No hepatosplenomegaly present RECTAL EXAM: Yes deferred Extremity: COMMON NORMALS: no clubbing, cyanosis or edema and no pedal edema Urinary Catheter Management^: Mullen: Cath Placed During This Visit: yes, but has since been removed by the nurse Reason for Continuing Indwelling Catheter: Accurate Measurement of Urinary Output in Critically Ill Patients Urinary Catheter Date of Insertion: 04/17/21 Urinary Catheter Time of Insertion: 02:54 Date Urinary Catheter Removed: 04/17/21 Time Urinary Catheter Discontinued: 02:53 Data : 04/30/21 04:04 04/30/21 04:04 Micro: Microbiology 04/28/21 08:38 Urine Culture - Final Urine Catheterized 04/29/21 10:15 C.difficile Toxin B Gene (PCR) - Final Stool - Stool Aspirate A&P Assessment and plan (1) PEA (Pulseless electrical activity): -Acute hypoxic respiratory failure with acute respiratory distress syndrome, secondary COVID-19 pneumonia status post trach and PEG -PEA -Possibly secondary to pulmonary embolism and or acute flash pulmonary edema -With underlying acute hypoxic respiratory failure secondary to COVID-19 pneumonia, acute respiratory distress syndrome, status post tracheostomy, status post percutaneous gastrostomy tube placement -Status post CPR -PEA -Return of circulation -EKG shows slight ST-T wave changes in inferior leads, discussed with cardiology, no evidence of acute NE, baseline troponin I 04, 120-minute, 98.33, 6hour 131.6, delta 27.6 -repeat echo Moderately decreased left ventricular systolic function. Left ventricular ejection fraction is estimated at 40 %. Global left ventricular hypokinesis. Grade I/IV diastolic dysfunction (abnormal relaxation filling pattern), normal to mildly elevated filling pressures. -Bilateral lower extremity ultrasound negative for DVT -CT angiogram cannot be performed due to creatinine -Currently on therapeutic Lovenox, will continue -With hyponatremia, serum sodium 128, likely secondary to diuretic, SIADH with sepsis, hypertonic saline has been discontinued, conivaptan 2 doses, nephrology on consult, continue to monitor serum sodiums -Continues to have generalized anasarca chest x-ray continues to show pulmonary vascular congestion, + 8 L, hyponatremia is improving, will try Lasix -Creatinine 1.6, continue to monitor, will consider restarting midodrine if blood pressures are borderline -Family declines CRRT for now -Septic shock on broad-spectrum antibiotic therapy, off pressor therapy, MAP around 65 -continue Levaquin, vancomycin, Primaxin, caspofungin for now, as patient had low-grade fevers as of yesterday -Now alert, following basic commands, -Can consider EEG depending on clinical progress -Follow blood cultures, sputum cultures show yeast, repeat cultures -Hemoglobin stable, status post 1 unit PRBC, monitor hemoglobin -Start tube feeds, slow upward titration, goal 50 cc an hour with free water flushes 100 cc every 4 hours -Start bowel regimen lactulose, Colace -Hold fluid due to concerns for fluid overload -For A. fib with RVR, currently normal sinus rhythm, paroxysmal A. fib currently on p.o. Cardizem 60 every 6 hours, amiodarone 400 once daily, Lovenox as above -Ventilator, 80% % FiO2, wean PEEP and FiO2 as tolerated, continue ventilatory support, minimize PEEP, minimize FiO2, does not tolerate CMV well, need to titrate FiO2 to below 80%, PEEP under 10 -low-dose hydrocodone scheduled, sedation should only be used if concerns for tachypnea, respiratory failure -Trach replaced, by Dr. Bishop, 04/27/2020 no leak -Patient's family has made him DNR -Tracheostomy in place -PEG tube in place -Mullen catheter in place -Right PICC line in place -Protonix 40 IV twice daily, Carafate -Therapeutic Lovenox -Status is stable, prognosis is guarded -Family wants to continue medical interventions, will work on placement to select Plan for today, slowly upward titrate tube feeds, bowel regimen, continue antibiotics, monitor respiratory status, wean oxygen, will do CT imaging Status: Acute (2) Atrial fibrillation and flutter: Status: Acute (3) Hypoxemia: Hypoxia persists. Secondary to COVID-19 pneumonia, acute respiratory distress syndrome, FiO2 requirement up to 100%. Noted thrombophlebitis with thrombus within cephalic vein of left forearm. Continue cefepime, vancomycin. Sputum cultures were repeated 04/14. He has completed his course of remdesivir, and dexamethasone Initial antibiotic course of azithromycin, ceftriaxone. Tracheostomy performed late April 11 PEG tube was placed 04/13. Arrangements also underway for placement to long-term care. Status: Acute (4) COVID-19: Severe COVID-19 with ARDS. As above. Status: Acute (5) Ischemic cardiomyopathy: Status: Acute (6) Acute kidney injury: Status: Acute (7) Hyponatremia: Status: Acute (8) Atherosclerosis of coronary artery of [place] heart without angina pectoris: Continue cardiac medications. Status: Acute Qualifiers: Coronary Disease-Associated Artery/Lesion type: unspecified vessel or lesion type Qualified Code(s): I25.10 - Atherosclerotic heart disease of [place] coronary artery without angina pectoris (9) Dyslipidemia: Status: Acute (10) Benign essential HTN: Status: Acute (11) Neck mass: Indeterminate left neck mass measuring nearly 3 cm in size, does not appear to originate from the thyroid. CT scan neck demonstrated no mass Status: Acute (12) Fever: Recurrence. See notation above. Status: Acute (13) Septic shock: Status: Acute (14) Acute CVA (cerebrovascular accident): -CT of the head shows suspicious for acute right parietal occipital infarct -Possible embolic stroke associate with A. fib? -Timeframe unknown, as patient was on sedation, on mechanical ventilation -Is difficult to discern any focal neurologic deficits, as he has generalized weakness, difficult to follow commands at times, mentation fluctuates -Will need daily neuro exams, PT OT -Patient has been on aspirin, statin continue -Patient has been on therapeutic Lovenox continue -I would hold off on Plavix, given his hemoglobin 8.9, risk of bleeding -Cannot perform MRI given clinical status Status: Acute (15) T9 vertebral fracture: -Likely secondary to chest compressions or minimal trauma fracture from repositioning -Pain control with scheduled hydrocodone -Continue to monitor Status: Acute (16) Rib fractures: -Acute to subacute fractures involving the anterior left 2nd, 3rd and 4th ribs as well as the right 2nd, 3rd, 4th, 5th and 6th ribs. -Secondary to CPR for PEA -No clinical evidence of flail chest -Certainly this could be playing a role in terms of his tachypnea, increased oxygen requirements -Pain control with scheduled [place] Status: Acute Additional A&P Information \ Attestations Medical Necessity Statement*: Patient needs to be in hospital for management of respiratory failure Coding Level of Care Code Acute Parts Department Manager for [facility] Fwd Diagnoses PEA (Pulseless electrical activity) I46.9 Atrial fibrillation and flutter I48.91; I48.92 Hypoxemia R09.02 COVID-19 U07.1 Ischemic cardiomyopathy I25.5 Acute kidney injury N17.9 Hyponatremia E87.1 Atherosclerosis of coronary artery of [place] heart without angina pectoris I25.10 Coronary Disease-Associated Artery/Lesion type: unspecified vessel or lesion type Dyslipidemia E78.5 Benign essential HTN I10 Neck mass R22.1 Fever R50.9 Septic shock A41.9; R65.21 Acute CVA (cerebrovascular accident) I63.9 T9 vertebral fracture S22.079A Rib fractures S22.49XA
[2021-04-30] MEDS: atorvastatin 40 mg Tablet PO (22:01)
[2021-05-01] VITALS (63 sets, daily range): BP systolic 84–135; BP diastolic 51–81; PULSE 91–104; RESP 22–30; TEMP 36.9–38.4; O2SAT 87–100; BMI 27.9
[2021-05-01] MEDS: ipratropium-albuterol 3 mL Neb INHALATION ×6 (03:22→23:20)
[2021-05-01] MEDS: lactulose oral liq 20 gm/30 mL UDC PO (04:12)
[2021-05-01] MEDS: pantoprazole 40 mg SDV IVP ×2 (04:12→17:42)
--- NOTE | 2021-05-01 05:54 | PC.NURSE ---
Shift Note Frequent safety and comfort rounds continue. Orders and/or nursing care completed as indicated. Patient monitored for response to intervention and treatment(s). Education provided includes Levophed. Patient needs further reinforcement teaching. Levophed is infusing in right arm PICC line at 2 mcg/min to maintain MAP >65. Mullen catheter drained 800 mls of bright yellow urine with sediment. Rectal tube drained 100 mls of liquid brown stool. Vent settings are as follows; mode-CMV, FiO2-90%, VT-400, rate-22, PEEP-10. Patient can shake head yes and no when asked questions but cannot move extremities when asked. Will continue to monitor.
[2021-05-01 06:04] LABS: Basophils # 0.1 10^3/uL (0.0-0.1); Basophils % 0.6 %; Eosinophils # 0.6 10^3/uL (0.0-0.8); Eosinophils % 3.5 %; Hematocrit 28.7 % (42.0-52.0); Lymphocytes # 1.6 10^3/uL (0.8-4.8); Lymphocytes % 9.7 %; Mean Corpuscular HGB Conc 31.4 g/dL (30.0-36.0); Mean Corpuscular Hemoglobin 32.7 pg (28.0-34.0); Mean Corpuscular Volume 104.4 fl (80-94); Mean Platelet Volume 10.1 fL (7.4-10.4); Monocytes # 1.6 10^3/uL (0.2-0.9); Monocytes % 9.7 %; Neutrophils % 75.3 %; Nucleated Red Blood Cells % 0 %; Platelet Count 393 10^3/cmm (130-400); Red Blood Count 2.75 10^6/uL (4.1-5.3); Red Cell Distribution Width 13.5 % (12.1-15.1); White Blood Count 16.5 10^3/uL (4.0-10.0)
[2021-05-01 06:28] LABS: NT Pro B Type Natriuretic Pept 29506 pg/mL (0-125); Procalcitonin 0.29 ng/mL (0-0.5)
[2021-05-01 06:39] LABS: Alanine Aminotransferase 7 U/L (0-41); Albumin Level 2.5 g/dL (3.5-5.2); Alkaline Phosphatase 105 IU/L (40-130); Anion Gap 10.8 (5-19); Aspartate Amino Transferase 33 U/L (0-40); Blood Urea Nitrogen 36 mg/dL (8-23); Calcium 8.4 mg/dL (8.5-10.5); Carbon Dioxide 38 mmol/L (22-29); Chloride 86 mmol/L (98-107); Globulin 3.5 g/dL (1.3-4.6); Glomerular Filtration Rate 47.6 mL/min (90-130); Glucose 111 mg/dL (65-115); Magnesium 1.8 mg/dL (1.7-2.3); Osmolality Calculated 281 mOsm/kg (285-295); Phosphorus 3.1 mg/dL (2.5-4.5); Potassium 3.8 mmol/L (3.5-5.1); Sodium 131 mmol/L (136-145); Total Bilirubin 0.5 mg/dL (0.15-1.2)
[2021-05-01] MEDS: HYDROcodone-acetaminophen 5-325 mg Tablet 1 TAB PO ×2 (06:51→17:42)
[2021-05-01] MEDS: thiamine 100 mg Tablet PO (07:16)
[2021-05-01] MEDS: linezolid premix 600 MG/300 ML PREMIX 300 MG IV ×2 (07:16→20:03)
[2021-05-01] MEDS: sucralfate 1 gm Tablet PO ×4 (07:16→20:35)
[2021-05-01] MEDS: folic acid 1 mg Tablet PO (07:16)
[2021-05-01] MEDS: amiodarone 200 mg Tablet 400 MG PO (07:16)
[2021-05-01] MEDS: aspirin 81 mg EC Tablet PO (07:16)
[2021-05-01] MEDS: multivitamin therapeutic Tablet 1 TAB PO (07:17)
[2021-05-01] MEDS: guaiFENesin 600 mg Tablet PO ×2 (07:17→17:43)
[2021-05-01] MEDS: ferrous gluconate 324 mg Tablet PO ×2 (07:17→17:42)
[2021-05-01] MEDS: FUROsemide 10 mg/mL SDV 4mL 40 MG IVP (07:17)
--- NOTE | 2021-05-01 07:26 | P.PN_ITS ---
Subjective Subjective: Interval history: not interactive, not able to get a ROS Medications: Reviewed: Yes Medication Review Details: Current Medications Acetaminophen (Acetaminophen 325 Mg Tablet) 650 mg PO Q6H PRN PRN Reason: Mild/Mod Pain Or Temp >/= 101 Last Admin: 04/21/21 09:00 Dose: 650 mg Documented by: Hydrocodone Bitart/Acetaminophen (Hydrocodone-Acetaminophen 5-325 Mg Tablet) 1 tab PO Q12H [facility] Last Admin: 05/01/21 06:51 Dose: 1 tab Documented by: Albuterol Sulfate (Albuterol 2.5 Mg/0.5 Ml Neb) 2.5 mg INHALATION Q4H.RESPIRATORY PRN PRN Reason: SHORTNESS OF BREATH Albuterol/Ipratropium (Ipratropium-Albuterol 3 Ml Neb) 3 ml INHALATION Q4H.RESPIRATORY [facility] Last Admin: 05/01/21 03:22 Dose: 3 ml Documented by: Amiodarone HCl (Amiodarone 200 Mg Tablet) 400 mg PO DAILY [facility] Last Admin: 05/01/21 07:16 Dose: 400 mg Documented by: Artificial Tears (Artificial Tears Op Oint 3.5 Gm) 1 applic EYE-BOTH PRN PRN PRN Reason: DRY EYE(S) Aspirin (Aspirin 81 Mg Ec Tablet) 81 mg PO DAILY [facility] Last Admin: 05/01/21 07:16 Dose: 81 mg Documented by: Atorvastatin Calcium (Atorvastatin 40 Mg Tablet) 40 mg PO BEDTIME [facility] Last Admin: 04/30/21 22:01 Dose: 40 mg Documented by: Budesonide (Budesonide 0.5 Mg/2 Ml Neb) 0.5 mg INHALATION BID.RESPIRATORY [facility] Last Admin: 04/30/21 20:06 Dose: 0.5 mg Documented by: Diltiazem HCl (Diltiazem 60 Mg Tablet) 60 mg PO Q6H [facility] Last Admin: 04/30/21 14:20 Dose: 60 mg Documented by: Docusate Sodium (Docusate Sodium 100 Mg Capsule) 100 mg PO Q12H [facility] Last Admin: 05/01/21 04:28 Dose: Not Given Documented by: Enoxaparin Sodium (Enoxaparin 80 Mg/0.8 Ml Syringe) 80 mg SUBCUT Q12H [facility] Last Admin: 04/30/21 22:00 Dose: 80 mg Documented by: Ferrous Gluconate (Ferrous Gluconate 324 Mg Tablet) 324 mg PO BIDWM [facility] Last Admin: 05/01/21 07:17 Dose: 324 mg Documented by: Folic Acid (Folic Acid 1 Mg Tablet) 1 mg PO DAILY [facility] Last Admin: 05/01/21 07:16 Dose: 1 mg Documented by: Furosemide (Furosemide 10 Mg/Ml Sdv 4ml) 40 mg IVP Q24H [facility] Last Admin: 05/01/21 07:17 Dose: 40 mg Documented by: Guaifenesin (Guaifenesin 600 Mg Tablet) 600 mg PO BID [facility] Last Admin: 05/01/21 07:17 Dose: 600 mg Documented by: Caspofungin 50 mg/ Sodium (Chloride) 250 mls @ 250 mls/hr IV Q24H [facility] Last Infusion: 04/30/21 19:02 Dose: Infused Documented by: Linezolid (Zyvox Premix) 600 mg in 300 mls @ 300 mls/hr IV Q12H [facility]; Protocol Last Admin: 05/01/21 07:16 Dose: 300 mls/hr Documented by: Imipenem/Cilastatin Sodium 500 (mg/ Sodium Chloride) 100 mls @ 200 mls/hr IV Q8H [facility] Last Admin: 05/01/21 07:16 Dose: 200 mls/hr Documented by: Levofloxacin/Dextrose (Levaquin-D5w) 750 mg in 150 mls @ 100 mls/hr IV Q48H [facility]; Protocol Last Infusion: 04/30/21 19:02 Dose: Infused Documented by: Norepinephrine Bitartrate 4 mg (/ Dextrose) 254 mls @ 0 mls/hr IV .Q0M [facility]; Protocol Last Titration: 05/01/21 01:00 Dose: 2 mcg/min, 7.62 mls/hr Documented by: Lactulose (Lactulose Oral Liq 20 Gm/30 Ml Udc) 20 gm PO Q12H [facility] Last Admin: 05/01/21 04:12 Dose: 20 gm Documented by: Lanolin (Lanolin Oint 7 Gm) 1 applic TOPICAL PRN PRN PRN Reason: DRYNESS Last Admin: 04/16/21 08:03 Dose: 1 applic Documented by: Morphine Sulfate (Morphine 4 Mg/Ml Sdv 1 Ml) 2 mg IVP Q4H PRN PRN Reason: SEVERE PAIN Last Admin: 04/30/21 03:10 Dose: 2 mg Documented by: Multivitamins Therapeutic (Multivitamin Therapeutic Tablet) 1 tab PO DAILY [facility] Last Admin: 05/01/21 07:17 Dose: 1 tab Documented by: Nitroglycerin (Nitroglycerin 0.4 Mg Sublingual Tablet) 0.4 mg SUBLINGUAL Q5M PRN PRN Reason: Chest Pain Nystatin (Nystatin Powder 15 Gm Btl) 1 applic TOPICAL QID PRN PRN Reason: RASH Last Admin: 04/17/21 09:34 Dose: 1 applic Documented by: Ondansetron HCl (Ondansetron 2 Mg/Ml Sdv 2 Ml) 4 mg IVP Q8H PRN PRN Reason: vomiting, or N/V if npo Pantoprazole Sodium (Pantoprazole 40 Mg Sdv) 40 mg IVP Q12H [facility] Last Admin: 05/01/21 04:12 Dose: 40 mg Documented by: Senna (Sennosides 8.6 Mg Tablet) 17.2 mg PO BID [facility] Last Admin: 05/01/21 07:17 Dose: Not Given Documented by: Sucralfate (Sucralfate 1 Gm Tablet) 1 gm PO AC&BEDTIME [facility] Last Admin: 05/01/21 07:16 Dose: 1 gm Documented by: Thiamine Mononitrate (Thiamine 100 Mg Tablet) 100 mg PO DAILY [facility] Last Admin: 05/01/21 07:16 Dose: 100 mg Documented by: Vitals/I&O/Wt Last Vital Signs Temp 101.2 F H 05/01/21 04:00 Pulse 103 H 05/01/21 06:00 Resp 26 H 05/01/21 06:15 BP 133/74 05/01/21 06:00 Pulse Ox 93 05/01/21 06:15 04/30/21 05/01/21 05/01/21 22:59 06:59 14:59 Intake Total 1364.383 / 4830.298 4120.678 / 3159.231 Output Total 100 / 950 900 / 1850 Balance 1264.383 / 956.553 352.678 / 1309.231 Weight last 48 hrs Weight 85.871 kg Weight 88.195 kg Physical Exam Narrative: EXAM NARRATIVE: on vent via trach- minimally responsive- febrile vs noted- vent tv 400/ ihb1=754%, rr 22/ peep 10 heent- nc/at neck trach lungs- b/l diffuse crackles heart irreg, + s1, s2 abd soft, nt, nd, + bs, +PEG ext + b/l edema neuro- sedated, responds to pain and touch exam by RN as telehealth visit Urinary Catheter Management^: Mullen: Cath Placed During This Visit: yes, but has since been removed by the nurse Reason for Continuing Indwelling Catheter: Accurate Measurement of Urinary Output in Critically Ill Patients Urinary Catheter Date of Insertion: 04/17/21 Urinary Catheter Time of Insertion: 02:54 Date Urinary Catheter Removed: 04/17/21 Time Urinary Catheter Discontinued: 02:53 Data : 05/01/21 05:32 05/01/21 05:32 Micro: Microbiology 04/28/21 08:38 Urine Culture - Final Urine Catheterized A&P Additional A&P Information 1. Hyponatremia -sodium stable- multifactorial Prerenal and SIADH Hold thiazide diuretics. 2. 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 Covid pneumonitis Currently on trach with high ventilator settings. Status post remdesivir and Decadron, currently receiving combination antibiotic therapy as well. -leukocytosis and fevers 4. Hemodynamics Atrial fibrillation with RVR since cardiac arrest Amiodarone and diltiazem on board Off pressor agents at this time - echo- EF 40%, Global left ventricular hypokinesis. Grade I/IV diastolic dysfunction (abnormal relaxation filling pattern), normal to mildly elevated filling pressures. -elevated bnp -lasix 5. anemia - hgb stable 6. hypercapneic resp acidosis and mild met alkslosis- balanced pH on 04/29/21- repeat abg 7. chf- high bnp- EF 40% overall prognosis is poor- consider goals of care Patient seen and examined via telemedicine, with the assistance of the bedside RN 30 min spent in evaluation and mgmt of patient Attestations Medical Necessity Statement*: vdrf, resp distress, ckd Time Spent in Patient Care: 16 - 35 minutes Coding Level of Care Code Acute Bit Grinder for [facility] [facility]
[2021-05-01] MEDS: budesonide 0.5 mg/2 mL Neb INHALATION ×2 (08:55→20:01)
[2021-05-01 09:40] LABS: ABG PH Result 7.39 (7.35-7.45); Alveolar-Arterial Oxygen Gradi 70.4 mmHg (5-10); Arterial Blood Gas Hematocrit 31.2 % (42-52); Blood Gas Allen Test Pos; Blood Gas Sample Site Brachial, left; Blood Gas Sample Type Arterial; Carboxyhemoglobin 1.6 %THgb (0.4-20.1); HCO3 ABG 42.5 mmol/L (22-26); HGB O2 Sat 86.9 % (95-100); Ionized Calcium Level - ABG 1.2 mmol/L (1.1-1.4); Methemoglobin 0.5 % (0.4-1.5); Oxygen Device VENT; Oxygen Saturation ABG 88.8; PO2 ABG 55.1 mmHg (80.0-100.0); Potassium Level - ABG 3.4 mmol/L (3.5-5.0); Total Hemoglobin 10.2 g/dL (14-18)
[2021-05-01 09:41] LABS: ABG PCO2 70.2 mmHg (35-45)
[2021-05-01] MEDS: enoxaparin 80 mg/0.8 mL Syringe SUBCUT ×2 (11:13→21:52)
--- NOTE | 2021-05-01 15:25 | PC.RESP ---
RT Shift Note Frequent safety and respiratory rounds continue. Orders completed as indicated. Patient monitored pre and post treatments throughout shift. Patient [Did.] tolerate treatments appropriately. Condition [DidNotChange]. Patient and/or technical services representative educated on respiratory treatment and medications. Patient and/or technical services representative [unable to comprehend]. Will continue to monitor patient progress.
--- NOTE | 2021-05-01 15:53 | P.PN_ITS ---
Subjective Subjective: Interval history: Patient was seen and examined this morning open eyes with verbal command. Patient has spiked Temperature. Medications: Reviewed: Yes Medication Review Details: Current Medications Acetaminophen (Acetaminophen 325 Mg Tablet) 650 mg PO Q6H PRN PRN Reason: Mild/Mod Pain Or Temp >/= 101 Last Admin: 04/21/21 09:00 Dose: 650 mg Documented by: Hydrocodone Bitart/Acetaminophen (Hydrocodone-Acetaminophen 5-325 Mg Tablet) 1 tab PO Q12H [facility] Last Admin: 04/30/21 06:21 Dose: 1 tab Documented by: Albuterol Sulfate (Albuterol 2.5 Mg/0.5 Ml Neb) 2.5 mg INHALATION Q4H.RESPIRATORY PRN PRN Reason: SHORTNESS OF BREATH Albuterol/Ipratropium (Ipratropium-Albuterol 3 Ml Neb) 3 ml INHALATION Q4H.RESPIRATORY [facility] Last Admin: 04/29/21 23:15 Dose: 3 ml Documented by: Amiodarone HCl (Amiodarone 200 Mg Tablet) 400 mg PO DAILY [facility] Last Admin: 04/29/21 08:57 Dose: 400 mg Documented by: Artificial Tears (Artificial Tears Op Oint 3.5 Gm) 1 applic EYE-BOTH PRN PRN PRN Reason: DRY EYE(S) Aspirin (Aspirin 81 Mg Ec Tablet) 81 mg PO DAILY [facility] Last Admin: 04/29/21 08:57 Dose: 81 mg Documented by: Atorvastatin Calcium (Atorvastatin 40 Mg Tablet) 40 mg PO BEDTIME [facility] Last Admin: 04/29/21 20:09 Dose: 40 mg Documented by: Budesonide (Budesonide 0.5 Mg/2 Ml Neb) 0.5 mg INHALATION BID.RESPIRATORY [facility] Last Admin: 04/29/21 20:17 Dose: 0.5 mg Documented by: Diltiazem HCl (Diltiazem 60 Mg Tablet) 60 mg PO Q6H [facility] Last Admin: 04/30/21 03:25 Dose: 60 mg Documented by: Docusate Sodium (Docusate Sodium 100 Mg Capsule) 100 mg PO Q12H [facility] Last Admin: 04/30/21 03:13 Dose: Not Given Documented by: Enoxaparin Sodium (Enoxaparin 80 Mg/0.8 Ml Syringe) 80 mg SUBCUT Q12H [facility] Last Admin: 04/30/21 00:07 Dose: 80 mg Documented by: Ferrous Gluconate (Ferrous Gluconate 324 Mg Tablet) 324 mg PO BIDWM [facility] Last Admin: 04/29/21 17:18 Dose: 324 mg Documented by: Folic Acid (Folic Acid 1 Mg Tablet) 1 mg PO DAILY [facility] Last Admin: 04/29/21 08:57 Dose: 1 mg Documented by: Furosemide (Furosemide 10 Mg/Ml Sdv 4ml) 40 mg IVP Q24H [facility] Last Admin: 04/29/21 07:29 Dose: 40 mg Documented by: Guaifenesin (Guaifenesin 600 Mg Tablet) 600 mg PO BID [facility] Last Admin: 04/29/21 17:18 Dose: 600 mg Documented by: Caspofungin 50 mg/ Sodium (Chloride) 250 mls @ 250 mls/hr IV Q24H [facility] Last Infusion: 04/29/21 17:22 Dose: Infused Documented by: Linezolid (Zyvox Premix) 600 mg in 300 mls @ 300 mls/hr IV Q12H [facility]; Protocol Last Infusion: 04/29/21 21:09 Dose: Infused Documented by: Imipenem/Cilastatin Sodium 500 (mg/ Sodium Chloride) 100 mls @ 200 mls/hr IV Q8H [facility] Last Infusion: 04/30/21 00:37 Dose: Infused Documented by: Levofloxacin/Dextrose (Levaquin-D5w) 750 mg in 150 mls @ 100 mls/hr IV Q48H [facility]; Protocol Last Infusion: 04/28/21 18:43 Dose: Infused Documented by: Norepinephrine Bitartrate 4 mg (/ Dextrose) 254 mls @ 0 mls/hr IV .Q0M [facility]; Protocol Last Admin: 04/29/21 20:10 Dose: 2 mcg/min, 7.62 mls/hr Documented by: Lactulose (Lactulose Oral Liq 20 Gm/30 Ml Udc) 20 gm PO Q12H [facility] Last Admin: 04/30/21 03:13 Dose: Not Given Documented by: Lanolin (Lanolin Oint 7 Gm) 1 applic TOPICAL PRN PRN PRN Reason: DRYNESS Last Admin: 04/16/21 08:03 Dose: 1 applic Documented by: Morphine Sulfate (Morphine 4 Mg/Ml Sdv 1 Ml) 2 mg IVP Q4H PRN PRN Reason: SEVERE PAIN Last Admin: 04/30/21 03:10 Dose: 2 mg Documented by: Multivitamins Therapeutic (Multivitamin Therapeutic Tablet) 1 tab PO DAILY [facility] Last Admin: 04/29/21 08:56 Dose: 1 tab Documented by: Nitroglycerin (Nitroglycerin 0.4 Mg Sublingual Tablet) 0.4 mg SUBLINGUAL Q5M PRN PRN Reason: Chest Pain Nystatin (Nystatin Powder 15 Gm Btl) 1 applic TOPICAL QID PRN PRN Reason: RASH Last Admin: 04/17/21 09:34 Dose: 1 applic Documented by: Ondansetron HCl (Ondansetron 2 Mg/Ml Sdv 2 Ml) 4 mg IVP Q8H PRN PRN Reason: vomiting, or N/V if npo Pantoprazole Sodium (Pantoprazole 40 Mg Sdv) 40 mg IVP Q12H [facility] Last Admin: 04/30/21 03:14 Dose: 40 mg Documented by: Senna (Sennosides 8.6 Mg Tablet) 17.2 mg PO BID [facility] Last Admin: 04/29/21 17:18 Dose: Not Given Documented by: Sucralfate (Sucralfate 1 Gm Tablet) 1 gm PO AC&BEDTIME [facility] Last Admin: 04/29/21 20:09 Dose: 1 gm Documented by: Thiamine Mononitrate (Thiamine 100 Mg Tablet) 100 mg PO DAILY [facility] Last Admin: 04/29/21 08:56 Dose: 100 mg Documented by: Vitals/I&O/Wt Last Vital Signs Temp 98.5 F 05/01/21 14:00 Pulse 98 05/01/21 15:23 Resp 26 H 05/01/21 15:24 BP 121/72 05/01/21 14:00 Pulse Ox 92 05/01/21 15:24 05/01/21 05/01/21 05/01/21 06:59 14:59 22:59 Intake Total 1252.678 / 3159.231 526.99 / 526.99 Output Total 900 / 1850 1250 / 1250 Balance 352.678 / 1309.231 -723.01 / -723.01 Weight last 48 hrs Weight 85.871 kg Weight 88.195 kg Physical Exam Narrative: EXAM NARRATIVE: Patient opens eyes with verbal command. HENMT: COMMON NORMALS: normocephalic and atraumatic HEAD & SCALP: normocephalic and atraumatic Resp: OTHER: Diminished air entry bilaterally Cardio: COMMON NORMALS: regular rate, regular rhythm, S1 normal heart sound present, S2 normal heart sound present, No gallops present (Cardio), No murmurs present (Cardio), No rub (Cardio) and Peripheral pulses 2+ throughout RATE: regular rate RHYTHM: regular rhythm HEART SOUNDS: S1 normal heart sound present and S2 normal heart sound present PERIPHERAL PULSES: Peripheral pulse s 2+ throughout GI: COMMON NORMALS: Normal to inspection, nondistended, normoactive bowel sounds present, Soft to palpation, non-tender, No hepatosplenomegaly present and no masses AUSCULTATION: Yes normoactive bowel sounds PALPATION: Yes Soft to palpation and Yes No hepatosplenomegaly present RECTAL EXAM: Yes deferred Extremity: COMMON NORMALS: no clubbing, cyanosis or edema and no pedal edema Urinary Catheter Management^: Mullen: Cath Placed During This Visit: yes, but has since been removed by the nurse Reason for Continuing Indwelling Catheter: Accurate Measurement of Urinary Output in Critically Ill Patients Urinary Catheter Date of Insertion: 04/17/21 Urinary Catheter Time of Insertion: 02:54 Date Urinary Catheter Removed: 04/17/21 Time Urinary Catheter Discontinued: 02:53 Data : 05/01/21 05:32 05/01/21 05:32 Micro: Microbiology 04/28/21 09:45 Gram Stain - Final Sputum - Endotracheal Tube Aspirate Sputum Culture - Final A&P Assessment and plan (1) PEA (Pulseless electrical activity): -Acute hypoxic respiratory failure with acute respiratory distress syndrome, secondary COVID-19 pneumonia status post trach and PEG -PEA -Possibly secondary to pulmonary embolism and or acute flash pulmonary edema -With underlying acute hypoxic respiratory failure secondary to COVID-19 pneumonia, acute respiratory distress syndrome, status post tracheostomy, status post percutaneous gastrostomy tube placement -Status post CPR -PEA -Return of circulation -EKG shows slight ST-T wave changes in inferior leads, discussed with cardiology, no evidence of acute ME, baseline troponin I 04, 120-minute, 98.33, 6hour 131.6, delta 27.6 -repeat echo Moderately decreased left ventricular systolic function. Left ventricular ejection fraction is estimated at 40 %. Global left ventricular hypokinesis. Grade I/IV diastolic dysfunction (abnormal relaxation filling pattern), normal to mildly elevated filling pressures. -Bilateral lower extremity ultrasound negative for DVT -CT angiogram cannot be performed due to creatinine -Currently on therapeutic Lovenox, will continue -With hyponatremia, serum sodium 128, likely secondary to diuretic, SIADH with sepsis, hypertonic saline has been discontinued, conivaptan 2 doses, nephrology on consult, continue to monitor serum sodiums -Continues to have generalized anasarca chest x-ray continues to show pulmonary vascular congestion, + 8 L, hyponatremia is improving, will try Lasix -Creatinine 1.6, continue to monitor, will consider restarting midodrine if blood pressures are borderline -Family declines CRRT for now -Septic shock on broad-spectrum antibiotic therapy, off pressor therapy, MAP around 65 -continue Levaquin, vancomycin, Primaxin, caspofungin for now, as patient had low-grade fevers as of yesterday -Now alert, following basic commands, -Can consider EEG depending on clinical progress -Follow blood cultures, sputum cultures show yeast, repeat cultures -Hemoglobin stable, status post 1 unit PRBC, monitor hemoglobin -Start tube feeds, slow upward titration, goal 50 cc an hour with free water f lushes 100 cc every 4 hours -Start bowel regimen lactulose, Colace -Hold fluid due to concerns for fluid overload -For A. fib with RVR, currently normal sinus rhythm, paroxysmal A. fib currently on p.o. Cardizem 60 every 6 hours, amiodarone 400 once daily, Lovenox as above -Ventilator, 80% % FiO2, wean PEEP and FiO2 as tolerated, continue ventilatory support, minimize PEEP, minimize FiO2, does not tolerate CMV well, need to titrate FiO2 to below 80%, PEEP under 10 -low-dose hydrocodone scheduled, sedation should only be used if concerns for tachypnea, respiratory failure -Trach replaced, by Dr. Bishop, 04/27/2020 no leak -Patient's family has made him DNR -Tracheostomy in place -PEG tube in place -Mullen catheter in place -Right PICC line in place -Protonix 40 IV twice daily, Carafate -Therapeutic Lovenox -Status is stable, prognosis is guarded -Family wants to continue medical interventions, will work on placement to select Plan for today, slowly upward titrate tube feeds, bowel regimen, continue antibiotics, monitor respiratory status, wean oxygen, will do CT imaging Status: Acute (2) Atrial fibrillation and flutter: Status: Acute (3) Hypoxemia: Hypoxia persists. Secondary to COVID-19 pneumonia, acute respiratory distress syndrome, FiO2 requirement up to 100%. Noted thrombophlebitis with thrombus within cephalic vein of left forearm. Continue cefepime, vancomycin. Sputum cultures were repeated 04/14. He has completed his course of remdesivir, and dexamethasone Initial antibiotic course of azithromycin, ceftriaxone. Tracheostomy performed late April 11 PEG tube was placed 04/13. Arrangements also underway for placement to long-term care. Status: Acute (4) COVID-19: Severe COVID-19 with ARDS. As above. Status: Acute (5) Ischemic cardiomyopathy: Status: Acute (6) Acute kidney injury: Status: Acute (7) Hyponatremia: Status: Acute (8) Atherosclerosis of coronary artery of [place] heart without angina pectoris: Continue cardiac medications. Status: Acute Qualifiers: Coronary Disease-Associated Artery/Lesion type: unspecified vessel or lesion type Qualified Code(s): I25.10 - Atherosclerotic heart disease of [place] coronary artery without angina pectoris (9) Dyslipidemia: Status: Acute (10) Benign essential HTN: Status: Acute (11) Neck mass: Indeterminate left neck mass measuring nearly 3 cm in size, does not appear to originate from the thyroid. CT scan neck demonstrated no mass Status: Acute (12) Fever: Recurrence. See notation above. Status: Acute (13) Septic shock: Status: Acute (14) Acute CVA (cerebrovascular accident): -CT of the head shows suspicious for acute right parietal occipital infarct -Possible embolic stroke associate with A. fib? -Timeframe unknown, as patient was on sedation, on mechanical ventilation -Is difficult to discern any focal neurologic deficits, as he has generalized weakness, difficult to follow commands at times, mentation fluctuates -Will need daily neuro exams, PT OT -Patient has been on aspirin, statin continue -Patient has been on therapeutic Lovenox continue -I would hold off on Plavix, given his hemoglobin 8.9, risk of bleeding -Cannot perform MRI given clinical status Status: Acute (15) T9 vertebral fracture: -Likely secondary to chest compressions or minimal trauma fracture from repositioning -Pain control with scheduled hydrocodone -Continue to monitor Status: Acute (16) Rib fractures: -Acute to subacute fractures involving the anterior left 2nd, 3rd and 4th ribs as well as the right 2nd, 3rd, 4th, 5th and 6th ribs. 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 [facility] Fwd Diagnoses PEA (Pulseless electrical activity) I46.9 Atrial fibrillation and flutter I48.91; I48.92 Hypoxemia R09.02 COVID-19 U07.1 Ischemic cardiomyopathy I25.5 Acute kidney injury N17.9 Hyponatremia E87.1 Atherosclerosis of coronary artery of [place] heart without angina pectoris I25.10 Coronary Disease-Associated Artery/Lesion type: unspecified vessel or lesion type Dyslipidemia E78.5 Benign essential HTN I10 Neck mass R22.1 Fever R50.9 Septic shock A41.9; R65.21 Acute CVA (cerebrovascular accident) I63.9 T9 vertebral fracture S22.079A Rib fractures S22.49XA
[2021-05-01] MEDS: lanolin oint 7 gm 1 APPLIC TOPICAL (17:42)
--- NOTE | 2021-05-01 18:39 | PC.NURSE ---
Patient was seen in room lifting both arms up off of the bed and he is still able to answer questions by shaking head yes and no. Levophed was turned back on this shift. Q2H turn were done on patient and he tolerated well. was in room and all questions were answered.
[2021-05-01] MEDS: atorvastatin 40 mg Tablet PO (20:35)
[2021-05-02] VITALS (20 sets, daily range): BP systolic 70–130; BP diastolic 54–85; PULSE 0–115; RESP 22–28; TEMP 36.9–37.4; O2SAT 84–94; BMI 28.3
[2021-05-02] MEDS: morphine 4 mg/mL SDV 1 mL 2 MG IVP (00:50)
--- NOTE | 2021-05-02 01:56 | PC.NURSE ---
Around 0100, patient struggled on vent. Airway was suctioned and pink frothy sputum was removed. Patient still agitated, attempting to cough and overbreathe the ventilator. PRN medication given per OCT. Upon reassessment, patient status still the same, in addition to oxygen saturation dropping to low 80's. Airway suctioned further to reveal additional amounts of pink, frothy sputum. After suctioning, patient oxygenation increased to low 90's.
[2021-05-02] MEDS: ipratropium-albuterol 3 mL Neb INHALATION (03:29)
[2021-05-02] MEDS: pantoprazole 40 mg SDV IVP (04:23)
[2021-05-02] MEDS: LORazepam 2 mg/mL INJ 1 mL IVP (05:30)
[2021-05-02 05:56] LABS: Basophils # 0.1 10^3/uL (0.0-0.1); Basophils % 0.6 %; Eosinophils # 0.7 10^3/uL (0.0-0.8); Eosinophils % 5.1 %; Hematocrit 26.3 % (42.0-52.0); Hemoglobin 8.2 g/dL (11.7-16.6); Lymphocytes # 1.1 10^3/uL (0.8-4.8); Lymphocytes % 8.2 %; Mean Corpuscular HGB Conc 31.2 g/dL (30.0-36.0); Mean Corpuscular Hemoglobin 32.4 pg (28.0-34.0); Mean Platelet Volume 9.2 fL (7.4-10.4); Monocytes # 1.4 10^3/uL (0.2-0.9); Monocytes % 10.1 %; Neutrophils # 10.44 10^3/uL (1.8-7.7); Neutrophils % 74.9 %; Nucleated Red Blood Cells % 0 %; Platelet Count 288 10^3/cmm (130-400); Red Blood Count 2.53 10^6/uL (4.1-5.3); Red Cell Distribution Width 13.5 % (12.1-15.1); White Blood Count 13.9 10^3/uL (4.0-10.0)
[2021-05-02] MEDS: HYDROcodone-acetaminophen 5-325 mg Tablet 1 TAB PO (06:19)
[2021-05-02] MEDS: sucralfate 1 gm Tablet PO (06:19)
[2021-05-02 06:28] LABS: C Reactive Protein 70.8 mg/L (0.0-4.9)
[2021-05-02 06:43] LABS: Alanine Aminotransferase 6 U/L (0-41); Albumin Level 2.3 g/dL (3.5-5.2); Alkaline Phosphatase 95 IU/L (40-130); Anion Gap 11.9 (5-19); Aspartate Amino Transferase 27 U/L (0-40); Blood Urea Nitrogen 36 mg/dL (8-23); Calcium 8.3 mg/dL (8.5-10.5); Carbon Dioxide 37 mmol/L (22-29); Chloride 85 mmol/L (98-107); Globulin 3.4 g/dL (1.3-4.6); Glomerular Filtration Rate 56.1 mL/min (90-130); Glucose 134 mg/dL (65-115); Magnesium 1.6 mg/dL (1.7-2.3); Osmolality Calculated 280 mOsm/kg (285-295); Phosphorus 3.8 mg/dL (2.5-4.5); Potassium 3.9 mmol/L (3.5-5.1); Sodium 130 mmol/L (136-145); Total Bilirubin 0.5 mg/dL (0.15-1.2); Total Protein 5.7 g/dL (6.6-8.7)
[2021-05-02 06:50] LABS: NT Pro B Type Natriuretic Pept 34428 pg/mL (0-125)
--- NOTE | 2021-05-02 07:10 | PM.MISC ---
Miscellaneous Note Purpose of Documentation: I was called to see patient at 7 AM, patient was nonresponsive, no detectable pulse, no detectable blood pressure, running sinus bradycardia, heart rates in the 30s, when I arrived to see patient, he was mottled up to the belly, nonresponsive, no detectable blood pressure, no detectable pulse, in PEA arrest, no pupillary reflex, no withdraw from pain does not follow commands, patient was DNR, time of 7:05 PM, patient's Patito was notified
--- NOTE | 2021-05-02 07:35 | PC.NURSE ---
0645- bedside report, note agonal type respirations. attempted automatic cuff b/p w/o success.
--- NOTE | 2021-05-02 07:39 | PC.NURSE ---
0650-manual cuff with doppler. unable to hear pulse. intermittent pulse to right groin with doppler.
--- NOTE | 2021-05-02 07:40 | PC.NURSE ---
0655- note mottling up to groin area.
--- NOTE | 2021-05-02 07:42 | PC.NURSE ---
4304 note atrial standstill. no pulse with doppler. no innate respirations.
--- NOTE | 2021-05-02 07:44 | PC.NURSE ---
0705-time of per dr. donahue. family notified and enroute. vent turned off.
--- NOTE | 2021-05-02 08:05 | PM.DDS ---
Discharge Providers DDS Date of Admission: 03/27/21 18:11 Date Summary Completed: 05/02/21 Attending Provider at Admission: Nomi Garcia MD Time of : 07:05 Attending Provider at Discharge: Yoandy Dang MD Primary Care Provider: DO ELLEN Ospina Diagnoses Hospital Diagnoses (1) PEA (Pulseless electrical activity): (2) Atrial fibrillation and flutter: (3) Hypoxemia: (4) COVID-19: (5) Ischemic cardiomyopathy: (6) Acute kidney injury: (7) Hyponatremia: (8) Atherosclerosis of coronary artery of [place] heart without angina pectoris: Qualifiers: Coronary Disease-Associated Artery/Lesion type: unspecified vessel or lesion type Qualified Code(s): I25.10 - Atherosclerotic heart disease of [place] coronary artery without angina pectoris (9) Dyslipidemia: (10) Benign essential HTN: (11) Neck mass: (12) Fever: (13) Septic shock: (14) Acute CVA (cerebrovascular accident): (15) T9 vertebral fracture: (16) Rib fractures: Reason for Visit Reason for Visit: low 02, N/V, covid + Summary Date and Time of Date of : 05/02/21 Time of : 07:05 Summary Summary: 60 year old male with PMH of CAD, ischemic cardiomyopathy with EF of 45%, HTN, HLD presented after being referred to the ER from infusion center where he had gone for monoclonal infusion. Unfortunately because he was saturating in 85-87% on RA he could not qualify for infusion. He was admitted for management of hypoxia secondary to Covid pneumonia. He had prolonged complicated hospital course, patient went into overt ARDS, status post PEG and trach, was on full Covid protocol(steroids, remdesivir, antibiotics) septic shock, A. fib with RVR, acute kidney injury, acute CVA, ( CT of the head shows suspicious for acute right parietal occipital infarct) PEA arrest s/p ROSC. After his first PEA arrest he was revived, but he had developed some elements of anoxic brain injury. Patient was made DNR/DNI by the family, unfortunately patient again went into PEA arrest on 05/02. Patient had a long machuca with Covid and unfortunately succumbed to it. During the hospital stay patient has multiple imaging studies including CT chest abdomen and pelvis, multiple x-rays, bilateral lower extremity Doppler vein no DVT, US abdomen, Additional Data Confirmation of as documented by pronouncing clinician: no pulse, no respirations, no heart sounds and pupils fixed and dilated Family: contacted Attending/PCP notified?: I am attending Was code activated?: No Autopsy requested?: No Advance directives?: No Hospice patient?: No Discharge Plan Discharge Patient Disposition: Home Condition: Stable Prescriptions: No Action metoprolol succinate 50 mg tablet extended release 24 hr 50 mg PO DAILY RF: 0 atorvastatin 20 mg tablet 20 mg PO DAILY RF: 0 nitroglycerin [Nitrostat] 0.4 mg tablet, sublingual 0.4 mg sublingual Q5M PRN (Reason: Chest Pain) RF: 0 isosorbide mononitrate 30 mg tablet extended release 24 hr 30 mg PO DAILY 30 Days Qty: 30 RF: 5 lisinopril 40 mg tablet 40 mg PO DAILY Qty: 30 RF: 5 Aspir-81 81 mg Tablet,Delayed Release (Dr/Ec) 81 mg PO DAILY RF: 0 Discharge Orders: Discharge Order (Routine); Ordered 05/02/21 Ordered By: Yoandy Dang Referrals: Taina Zarate DO [Primary Care Provider] - Patient Instructions: GI Discharge Instructions, Opioid Safety DS Attestations Time Spent in /Discharge Care*: less than 30 min Quality - AMI: AMI present?: No Quality - Stroke: CVA present?: No Quality - VTE: VTE present?: No Coding Level of Care Code 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 [facility] Fwd Diagnoses PEA (Pulseless electrical activity) I46.9 Atrial fibrillation and flutter I48.91; I48.92 Hypoxemia R09.02 COVID-19 U07.1 Ischemic cardiomyopathy I25.5 Acute kidney injury N17.9 Hyponatremia E87.1 Atherosclerosis of coronary artery of [place] heart without angina pectoris I25.10 Coronary Disease-Associated Artery/Lesion type: unspecified vessel or lesion type Dyslipidemia E78.5 Benign essential HTN I10 Neck mass R22.1 Fever R50.9 Septic shock A41.9; R65.21 Acute CVA (cerebrovascular accident) I63.9 T9 vertebral fracture S22.079A Rib fractures S22.49XA
--- NOTE | 2021-05-02 09:04 | PC.CHAP ---
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 survey data technician visit [] Patient/Family/Request visit [] Outpatient visit [] Follow-up visit [] Physician referral [] Code/Alert [] Routine visit [] Staff referral [] Actively dying [] Patient sleeping [] Family support [] [] Out of room [] Palliative care [] [] Receiving care in room [] Pre-surgical visit [] Trauma [] Long length of stay [] ICU visit [] Other: Relational/Emotional Strength [] Patient feels connected with others/family/visitors/staff [] Distress [] Loneliness/isolation [] Abandonment Spirituality of Patient [] Person of [place] [] Attends Temple of their [place] [] Believes in Prayer [] Reads Bible or Restorationist materials [] There are Spiritual issues to be addressed Print Developer Interventions [x] Prayer [] Active listening [] Non-anxious presence [] Spiritual/emotional support [] Crisis/trauma care [] Spiritual counseling [] Bereavement support [] Provided bereavement packet [] Provided Bible/devotional materials [] Provided toy/stuffed animal, coloring book to patient or family member [] Provided Communion [] Anointing/[place] [] Salvation [x] Completed spiritual assessment [] Other: Impact on Illness or Injury [] Angry [] Fearful [] Anxious [] Often cries [] Exhaustion [] Unable to work [] Unable to attend confucianist [] Unable to walk/stand [] Unable to read [] Unable to drive [] Unable to eat/drink [] Unable to sleep [] Unable to be with family [] Patient intubated [] Other: Summary my dear patient fought the good fight, but had a desire to go home to his Lord.. and so he did. Time spent with patient
--- NOTE | 2021-05-02 14:44 | PC.NURSE ---
to [facility].
== END 2021-05-02 07:05 | disposition expired | DRG 4 ==
LOC: ER 21:13 → MS 2A 23:34 → ICU 04-02 22:28 → MEDSURG 04-02 22:29 → ICU 04-02 22:29
PROVIDERS: Family Medicine; Hospitalist; Internal Medicine; Internal Medicine Nephrology; Internal Medicine Pulmonary Disease; Surgery; Admitting Provider Student in an Organized Health Care Education/Training Program; Emergency Provider Emergency Medicine; PCP Family Medicine; Visit Provider Internal Medicine
PROC: 0DH63UZ Insertion of Feeding Device into Stomach, Percutaneous Approach (ICD-10-PCS; CPT 43246; principal; 2021-04-13 12:00)
DX: U07.1 COVID-19 (principal); J12.82 Pneumonia due to coronavirus disease 2019; J80 Acute respiratory distress syndrome; I63.9 Cerebral infarction, unspecified; J81.0 Acute pulmonary edema; R65.21 Severe sepsis with septic shock; A41.9 Sepsis, unspecified organism; E87.1 Hypo-osmolality and hyponatremia; N17.9 Acute kidney failure, unspecified; M96.89 Other intraoperative and postprocedural complications and disorders of the musculoskeletal system; G93.1 Anoxic brain damage, not elsewhere classified; I82.622 Acute embolism and thrombosis of deep veins of left upper extremity; I10 Essential (primary) hypertension; E78.5 Hyperlipidemia, unspecified; I25.10 Atherosclerotic heart disease of native coronary artery without angina pectoris; I25.5 Ischemic cardiomyopathy; N40.0 Benign prostatic hyperplasia without lower urinary tract symptoms; Z87.891 Personal history of nicotine dependence; D69.6 Thrombocytopenia, unspecified; E86.0 Dehydration; Y84.8 Other medical procedures as the cause of abnormal reaction of the patient, or of later complication, without mention of misadventure at the time of the procedure; Y82.9 Unspecified medical devices associated with adverse incidents; Y92.230 Patient room in hospital as the place of occurrence of the external cause; I95.9 Hypotension, unspecified; I46.9 Cardiac arrest, cause unspecified; Z66 Do not resuscitate; B37.9 Candidiasis, unspecified; R22.1 Localized swelling, mass and lump, neck
CPT/HCPCS: 36415; 36416; 36430; 36569; 36592; 36600; 43246; 51702; 70360; 70450; 70491; 71045; 71250; 71275; 74176; 76536; 76705; 80048; 80051; 80053; 80061; 80202; 81001; 82140; 82330; 82436; 82533; 82550; 82570; 82607; 82728; 82746; 82803; 82805; 82962; 83036; 83540; 83550; 83605; 83735; 83880; 83930; 83935; 84100; 84133; 84145; 84295; 84300; 84443; 84484; 85007; 85025; 85378; 85610; 85651; 86140; 86403; 86850; 86900; 86920; 87040; 87070; 87086; 87106; 87107; 87205; 87449; 87493; 87506; 87641; 92507; 92523; 93005; 93306; 93308; 93970; 93971; 94002; 94003; 94640; 94660; 94799; 96372; 97110; 97162; 97167; 97530; 99285; A4570; C9113; C9488; J0282; J0330; J0637; J0692; J0696; J0743; J1100; J1250; J1450; J1650; J1940; J1956; J2020; J2060; J2250; J2270; J2704; J3010; J3370; J3411; J3475; J3480; J3490; J7030; J7040; J7050; J7060; J7131; J7626; J8540; P9016; P9047; Q0144; Q3014; Q9967